=== PATIENT | female | born 1960 | race African-American/Black ===

== ENCOUNTER 2019-10-31 15:23 | Outpatient (CLI) | payer OTHER, SELFPAY ==
--- NOTE | ~2019-10-31 | MM_ITS ---
EXAMINATION: MM screening noel BI w ricky HISTORY: Screening mammogram TECHNIQUE: Craniocaudal and mediolateral oblique 3-D tomosynthesis images were obtained and synthetic 2-D images were generated. CAD analysis was submitted and interpreted. COMPARISON: 12/31/2015, 01/27/2014, 09/15/2011 bilateral digital screening mammogram examinations BREAST PARENCHYMAL COMPOSITION: There are scattered areas of fibroglandular density......... FINDINGS: There is no evidence of suspicious mass, calcification, or architectural distortion to sugg est malignancy in either breast. There has been no suspicious interval change. IMPRESSION: 1. No mammographic evidence of malignancy. 2. Recommend routine screening mammography in one year. BI-RADS Category 1: Negative Reviewed, dictated and finalized at location A.
== END 2019-10-31 15:24 | disposition home or self-care (01) ==
LOC: ANHIMG 15:28
PROVIDERS: PCP Family Medicine; Visit Provider Physician Assistant
DX: Z12.31 Encounter for screening mammogram for malignant neoplasm of breast (principal)
CPT/HCPCS: 77063; 77067

== ENCOUNTER 2020-02-28 00:38 | Outpatient (CLI) | payer OTHER, SELFPAY ==
[2020-02-28 18:04] LABS: SARS-CoV-2 RNA PCR Negative
== END 2020-02-28 00:39 | disposition home or self-care (01) ==
LOC: ANHCOVIDDT 00:38
PROVIDERS: PCP Family Medicine; Visit Provider Internal Medicine Gastroenterology
DX: Z01.812 Encounter for preprocedural laboratory examination (principal); Z20.828 Contact with and (suspected) exposure to other viral communicable diseases
CPT/HCPCS: 87635; C9803; U0003

== ENCOUNTER 2020-03-02 00:34 | Day surgery (SDC) | payer OTHER, SELFPAY ==
[2020-02-23 15:21] VITALS: BMI 31.0
[2020-03-02 09:57] VITALS: BP 139/81; PULSE 71; RESP 16; TEMP 36.1; O2SAT 100; BMI 29.1
[2020-03-02] MEDS: LACTATED RINGERS 1,000 ML 150 ML IV CONT (10:07)
--- NOTE | 2020-03-02 10:17 | WPDANESEPPF ---
Anes - Initial Pre Proc Eval Procedure: Operation Date: 03/02/20 11:15 Proposed Procedures p Screening Colonoscopy - Manuel Hanks MD Date/Time: 03/02/20 10:17 Surgeon: Manuel Hanks MD Pre Op Diagnosis: Neoplasm Screening Patient Data Age: 59 Gender: F Height: 5 ft 7 in Weight: 84.4 kg Last Vital Signs Temp 97.0 F L 03/02/20 09:57 Pulse 71 03/02/20 09:57 Resp 16 03/02/20 09:57 BP 139/81 03/02/20 09:57 Pulse Ox 100 03/02/20 09:57 Allergies Allergy/AdvReac Type Severity Reaction Status Date / Time codeine Allergy Severe Hives Verified 03/02/20 09:55 Penicillins Allergy Severe Hives Verified 03/02/20 09:55 Sulfa (Sulfonamide Allergy Severe Hives Verified 03/02/20 09:55 Antibiotics) [place] And Derivatives AdvReac Intermediate Migraine Verified 03/02/20 09:55 egg AdvReac Intermediate Migraine Verified 03/02/20 09:55 egg yolk AdvReac Intermediate Migraine Verified 03/02/20 09:55 fish derived AdvReac Intermediate Migraine Verified 03/02/20 09:55 milk AdvReac Intermediate Migraine Verified 03/02/20 09:55 nut - unspecified AdvReac Intermediate Migraine Verified 03/02/20 09:55 Home Medications Medication Instructions Recorded Confirmed Type aspirin 81 mg tablet,delayed 81 mg PO DAILY 10/13/19 02/23/20 History release azelastine 137 mcg (0.1 %) nasal 1 spray NASAL Q12H #30 ml 10/13/19 02/23/20 Rx spray aerosol metoprolol succinate 50 mg 50 mg PO DAILY #90 tablet 10/13/19 02/23/20 Rx tablet,extended release 24 hr peg 3350-electrolytes 236 240 ml PO Q10M #4000 ml 01/26/20 Rx gram-22.74 gram-6.74 gram-5.86 gram solution cetirizine 10 mg PO DAILY 02/23/20 02/23/20 History ergocalciferol (vitamin D2) 1,250 mcg PO WEEKLY 02/23/20 02/23/20 History [Vitamin D2] fluoxetine 90 mg PO DAILY 02/23/20 02/23/20 History fluticasone propionate 1 spray INTRANASAL DAILY 02/23/20 02/23/20 History hydroxyzine HCl 25 mg PO DAILY 02/23/20 02/23/20 History Patient hx anesthesia problems: none Family hx anesthesia problems: none PMFSH Past Medical History Medical History (Updated 01/23/20 @ 13:38 by Fide Contreras MD) Allergic asthma Generalized anxiety disorder Hypertension Renal carcinoma Vitamin D deficiency Surgical History Surgical History H/O left nephrectomy Hx of arthroscopic knee surgery Hx of cholecystectomy Family History Family History Father Family history of blood dyscrasia, Onset Age: 68 Asthma Patient's father is Family history of heart disease in male family member before age 55 Mother Hypertension Family history of elevated blood lipids Family history of diabetes mellitus in first degree relative Sibling Asthma Grandparent Family history of malignant neoplasm of breast Other Diabetes mellitus Family history of sickle cell trait Social History Social History (Updated 01/23/20 @ 13:07 by Candelaria Holbrook) Social History: Divorce Smoking status: Never smoker Second hand tobacco smoke exposure: No Alcohol intake: former Substance use: never Substance use type: does not use Additional occupation/education comments: Disability Gender identity (if verbalized by the patient): Female Spiritual care concerns: No Anes - Eval Final PreProcedure Day of Procedure 03/02/20 10:17 Patient weight: obese Heart: regular rate and rhythm Lungs: clear to auscultation Airway: Mallampati scale class II Neurological: alert and oriented Last oral intake: >/= 8 hours ASA classification: III Emergent: no Anesthetic plan: proceed Anesthesia type and monitoring: general GIVS and standard monitoring Informed Consent: The patient's anesthetic plan and its attendant risks and benefits were discussed with the patient/family/POA. Questions were solicited and answers provided to the satisfac
--- NOTE | 2020-03-02 10:21 | PM.HPGS ---
History of Present Illness History of Present Illness Consent: Risks, benefits, and alternatives have been discussed and questions answered. Patient agrees to proceed with procedure. Chief complaint: Neoplasm Screening Narrative: Jailyn Condon is a 59 year old female here for screening colonoscopy, last one 10 years ago Review of Systems Constitutional: Constitutional: Denies headache(s) and Denies weakness Eyes: Eyes: Denies blurry vision ENT: Reports Normal hearing present, Denies headache(s) and Denies neck pain Cardiovascular: Cardiovascular: Denies chest pain and Denies dyspnea Respiratory: Respiratory: Denies dyspnea Gastrointestinal: Gastrointestinal: Reports no additional gastrointestinal complaints Genitourinary: Genitourinary: Denies dysuria Musculoskeletal: Musculoskeletal: Denies neck pain Integumentary/Breasts: Skin/Breast: Denies dry skin Neurologic: Reports Normal hearing present, Denies headache(s) and Denies weakness Psychiatric: Psychiatric: Denies anxiety Endocrine: Endocrine: Denies change in body appearance Hematologic/Lymphatic: Hematologic/Lymphatic: Denies easy bleeding Allergic/Immunologic: Allergic/Immunologic: Denies urticaria PMFSH Past Medical History Medical History (Updated 01/23/20 @ 13:38 by Fide Contreras MD) Allergic asthma Generalized anxiety disorder Hypertension Renal carcinoma Vitamin D deficiency Surgical History Surgical History H/O left nephrectomy Hx of arthroscopic knee surgery Hx of cholecystectomy Family History Family History Father Family history of blood dyscrasia, Onset Age: 68 Asthma Patient's father is Family history of heart disease in male family member before age 55 Mother Hypertension Family history of elevated blood lipids Family history of diabetes mellitus in first degree relative Sibling Asthma Grandparent Family history of malignant neoplasm of breast Other Diabetes mellitus Family history of sickle cell trait Social History Social History (Updated 01/23/20 @ 13:07 by Candelaria Holbrook) Social History: Divorce Smoking status: Never smoker Second hand tobacco smoke exposure: No Alcohol intake: former Substance use: never Substance use type: does not use Additional occupation/education comments: Disability Gender identity (if verbalized by the patient): Female Spiritual care concerns: No Meds Home Medications and Allergies Home Medications Medication Instructions Recorded Confirmed Type aspirin 81 mg tablet,delayed 81 mg PO DAILY 10/13/19 02/23/20 History release azelastine 137 mcg (0.1 %) nasal 1 spray NASAL Q12H #30 ml 10/13/19 02/23/20 Rx spray aerosol metoprolol succinate 50 mg 50 mg PO DAILY #90 tablet 10/13/19 02/23/20 Rx tablet,extended release 24 hr peg 3350-electrolytes 236 240 ml PO Q10M #4000 ml 01/26/20 Rx gram-22.74 gram-6.74 gram-5.86 gram solution cetirizine 10 mg PO DAILY 02/23/20 02/23/20 History ergocalciferol (vitamin D2) 1,250 mcg PO WEEKLY 02/23/20 02/23/20 History [Vitamin D2] fluoxetine 90 mg PO DAILY 02/23/20 02/23/20 History fluticasone propionate 1 spray INTRANASAL DAILY 02/23/20 02/23/20 History hydroxyzine HCl 25 mg PO DAILY 02/23/20 02/23/20 History Allergies Allergy/AdvReac Type Severity Reaction Status Date / Time codeine Allergy Severe Hives Verified 03/02/20 09:55 Penicillins Allergy Severe Hives Verified 03/02/20 09:55 Sulfa (Sulfonamide Allergy Severe Hives Verified 03/02/20 09:55 Antibiotics) [place] And Derivatives AdvReac Intermediate Migraine Verified 03/02/20 09:55 egg AdvReac Intermediate Migraine Verified 03/02/20 09:55 egg yolk AdvReac Intermediate Migraine Verified 03/02/20 09:55 fish derived AdvReac Intermediate Migraine Verified 03/02/20 09:55 milk AdvReac Intermediate Migraine Verifie
[2020-03-02 10:41] VITALS: BP 81/57; PULSE 69; RESP 17; O2SAT 99
[2020-03-02 10:51] VITALS: BP 98/60; PULSE 62; RESP 19; O2SAT 100
[2020-03-02 11:01] VITALS: BP 114/68; PULSE 60; RESP 16; O2SAT 100
== END 2020-03-02 11:14 | disposition home or self-care (01) ==
PROVIDERS: PCP Family Medicine; Visit Provider Internal Medicine Gastroenterology
PROC: 0DJD8ZZ Inspection of Lower Intestinal Tract, Via Natural or Artificial Opening Endoscopic (ICD-10-PCS; CPT 45378; principal; 2020-03-02 11:15)
DX: Z12.11 Encounter for screening for malignant neoplasm of colon (principal); K57.30 Diverticulosis of large intestine without perforation or abscess without bleeding; K64.8 Other hemorrhoids; I10 Essential (primary) hypertension; E55.9 Vitamin D deficiency, unspecified; F41.1 Generalized anxiety disorder; J45.909 Unspecified asthma, uncomplicated; E66.9 Obesity, unspecified; Z68.29 Body mass index [BMI] 29.0-29.9, adult
CPT/HCPCS: 45378; J2704; J7120

== ENCOUNTER 2021-01-22 15:10 | Emergency (ER) | payer OTHER, SELFPAY ==
[2021-01-22] VITALS (7 sets, daily range): BP systolic 112–150; BP diastolic 77–91; PULSE 75–88; RESP 18–22; TEMP 36.6; O2SAT 96–99
--- NOTE | ~2021-01-22 | XR_ITS ---
XR chest 2V DATE: 01/22/2021 15:47 INDICATION: Dizziness. Hypertension. Status post left nephrectomy for renal cell cancer TECHNIQUE: AP and lateral views COMPARISON: 04/13/2019 CT pulmonary scan FINDINGS: Cannot exclude approximately 7 mm nodular density of right upper lobe. No pulmonary infiltrate or consolidation, pleural effusion or pulmonary vascular congestion or pneumo thorax is detected. Normal heart size. No hilar or mediastinal enlargement. IMPRESSION: Cannot exclude 7 mm right upper lobe pulmonary nodule; consider CT thorax. Reviewed, dictated and finalized at location A.
--- NOTE | ~2021-01-22 | CT_ITS ---
EXAMINATION: CT brain wo con DATE: 01/22/2021 16:16 INDICATION: Headache. Hypertension. History of renal cell cancer. TECHNIQUE: Computed tomography (CT) of the head was performed without intravenous contrast. The mA wa s adjusted according to patient size. Iterative reconstruction technique was employed. Exam dose: 60 5.33 mGy-cm total exam DLP. COMPARISON: None FINDINGS: No intracranial mass lesion or hemorrhage or cerebrovascular accident. No midline shift or mass effect. Normal ventricular size. No subdural or epidural hematoma. No fracture or bone destruction of the cranial vault. Included mastoid air cells and paranasal sinuse s are unremarkable. IMPRESSION: Negative Reviewed, dictated and finalized at [facility]. Reviewed, dictated and finalized at location A. IMPRESSION: Negative
--- NOTE | 2021-01-22 15:22 | ECG_ITS ---
Measurements Intervals [place] Rate: 76 P: 42 MS: 176 QRS: 13 QRSD: 82 T: 84 QT: 368 QTc: 416 Interpretive Statements SINUS RHYTHM CANNOT RULE OUT SEPTAL INFARCT, AGE INDETERMINATE BORDERLINE T WAVE ABNORMALITY- DIFFUSE LEADS BASELINE ARTIFACT- II, III, AVR, AVL, AVF, V1-V6 ABNORMAL ECG Electronically Signed On 01-22-2021 20:12:04 CDT by Ryan Farfan D.O.
[2021-01-22 15:39] LABS: Basophils Percent Auto 0.6 % (0.2-1.2); Eosinophils Absolute Auto 0.5 K/mm3 (0-0.3); Eosinophils Percent Auto 6.4 % (0-4.4); Hematocrit 42.5 % (37.0-47.0); Hemoglobin 13.8 g/dL (12.0-15.0); Immature Granulocyte Absolute 0.08 K/mm3 (0.00-0.031); Immature Granulocyte Percent A 1.1 % (0-0.5); Lymphocytes Absolute Auto 2.09 K/mm3 (0.9-3.2); Lymphocytes Percent Auto 29.8 % (18.3-44.2); Mean Corpuscular HGB Conc 32.5 g/dl (32-36); Mean Corpuscular Hemoglobin 25.8 pg (26-34); Mean Corpuscular Volume 79.4 fl (80-100); Mean Platelet Volume 10.6 fl (7.4-10.4); Monocytes Absolute Auto 0.5 K/mm3 (0.1-0.6); Monocytes Percent Auto 7.7 % (2.6-8.5); Neutrophils Absolute Auto 3.8 K/mm3 (1.3-6.7); Neutrophils Percent Auto 54.4 % (45.5-73.1); Platelet Count Result 172 k/mm3 (150-375); Red Blood Count 5.35 M/mm3 (4.2-5.4); Red Cell Distribution Width 18.1 % (11.5-14.5)
--- NOTE | 2021-01-22 15:41 | ED.RECABL ---
HPI - Recheck/Abnormal Lab/Rx General Chief Complaint: Recheck/Abnormal Lab/Rx Stated Complaint: HIGH BLOOD PRESSURE, RENAL CELL CARCINOMA Time Seen by Provider: 01/22/21 15:22 Source: patient Mode of arrival: ambulatory Limitations: no limitations History of Present Illness HPI narrative: This is a 60 year old female that presents to the ER for hypertension. Reports she is currently on a clinical trial for renal cell carcinoma. She had her first infusion on Sunday. She was told to hold her blood pressure medications. Reports she noted over the next couple of days that her blood pressures were elevated to 140s/100s. She was then told to restart her medications. Her blood pressures have improved since then. She was instructed by her nurse coordinator to come to the ER for her blood pressure. Reports an episode of brief sharp, substernal chest pain earlier today. Reports she currently has a headache. Reports she has had a dry cough for the last couple of weeks. She is having trouble with her asthma and has been wheezing. She was seen by her primary yesterday and started on a steroid and Levaquin, but was told by her nurse coordinator for the trial that she shouldn't take these. Reports she had a fever couple of days ago. Denies shortness of breath. Related Data Home Medications Medication Instructions Recorded Confirmed aspirin 81 mg tablet,delayed 81 mg PO DAILY 10/13/19 01/21/21 release cetirizine 10 mg PO DAILY 02/23/20 01/21/21 fluoxetine 60 mg tablet 30 mg PO DAILY tablet 12/09/20 01/21/21 fluticasone furoate 100 1 inh INHALATION DAILY 12/09/20 01/21/21 mcg-vilanterol 25 mcg/dose inhalation powder sennosides 8.6 mg-docusate sodium 1 tab-cap PO QHS 12/09/20 01/21/21 50 mg tablet axitinib 5 mg tablet 5 mg PO BID 01/21/21 01/21/21 fluticasone fur. 100 mcg-umeclid 1 inh INHALATION DAILY 01/21/21 01/21/21 62.5 mcg-vilant 25 mcg inhalat.powder glycopyrrolate 9 mcg-formoterol 2 puff INHALATION BID 01/21/21 01/21/21 4.8 mcg HFA aerosol inhaler docusate sodium 50 mg PO DAILY 01/22/21 fluticasone furoate-vilanterol INHALATION 01/22/21 [Breo Ellipta] Allergies Allergy/AdvReac Type Severity Reaction Status Date / Time codeine Allergy Severe Hives Verified 01/21/21 11:00 Penicillins Allergy Severe Hives Verified 01/21/21 11:00 Sulfa (Sulfonamide Allergy Severe Hives Verified 01/21/21 11:00 Antibiotics) [place] And Derivatives AdvReac Intermediate Migraine Verified 01/21/21 11:00 egg AdvReac Intermediate Migraine Verified 01/21/21 11:00 egg yolk AdvReac Intermediate Migraine Verified 01/21/21 11:00 fish derived AdvReac Intermediate Migraine Verified 01/21/21 11:00 milk AdvReac Intermediate Migraine Verified 01/21/21 11:00 nut - unspecified AdvReac Intermediate Migraine Verified 01/21/21 11:00 Review of Systems Review of Systems: CONSTITUTIONAL: Reports fever CARDIOVASCULAR: Reports chest pain RESPIRATORY: Reports cough. Denies dyspnea. GASTROINTESTINAL: Reports nausea. Denies abdominal pain, vomiting NEUROLOGIC: Reports headache. Denies numbness, or weakness. All systems reviewed & are unremarkable except as noted in HPI and below PMFSH Past Medical History Medical History Allergic asthma Constipation Hypertension Renal carcinoma Vitamin D deficiency Surgical History Surgical History H/O left nephrectomy Hx of arthroscopic knee surgery Hx of cholecystectomy Family History Family History Father Family history of blood dyscrasia, Onset Age: 68 Asthma Patient's father is Family history of heart disease in male family member before age 55 Mother Hypertension Family history of elevated blood lipids Family history of diabetes mellitus in first degree relative Sibling Asthma Grandparent Family history of malignant n
[2021-01-22 15:48] LABS: Potassium 3.8 mmol/L (3.4-5.0)
[2021-01-22 15:59] LABS: Anion Gap 7 mmol/L (8-16); Blood Urea Nitrogen 10 mg/dL (7-17); Calcium 9.1 mg/dL (8.4-10.2); Carbon Dioxide 26 mmol/L (22-30); Chloride 103 mmol/L (98-107); Estimated CRCL calculation 47 ml/min; Estimated Glomerular Filt Rate > 60; Glucose 131 mg/dL (65-110); Sodium 136 mmol/L (137-145)
[2021-01-22 16:29] LABS: Prothrombin Time 13.1 Seconds (11.1-14.7)
[2021-01-22] MEDS: ONDANSETRON INJ 4 MG/2 ML VIAL IV PUSH (16:37)
[2021-01-22 16:43] LABS: Troponin I < 0.012 ng/mL (0.000-0.034)
[2021-01-22] MEDS: ALBUTEROL SULFATE (*SP) AEROSOL 1 PUFF 4 PUFF INHALATION (17:05)
== END 2021-01-22 18:53 | disposition home or self-care (01) ==
PROVIDERS: Physician Assistant; Emergency Provider Emergency Medicine; PCP Family Medicine
DX: I10 Essential (primary) hypertension (principal); R51.9 Headache, unspecified; J45.909 Unspecified asthma, uncomplicated; C79.9 Secondary malignant neoplasm of unspecified site; C64.9 Malignant neoplasm of unspecified kidney, except renal pelvis; Z90.5 Acquired absence of kidney; R91.1 Solitary pulmonary nodule
CPT/HCPCS: 36415; 70450; 71046; 80048; 84484; 85025; 85610; 85730; 93005; 96374; 96375; 99284; A9270; J0131; J2405

== ENCOUNTER 2021-01-28 13:22 | Emergency (ER) | payer OTHER, SELFPAY ==
--- NOTE | ~2021-01-28 | XR_ITS ---
EXAMINATION: XR chest 2V EXAM DATE: 01/28/2021 14:52 INDICATION: Anterior chest pain, cough and sore throat. TECHNIQUE: Frontal and lateral projections of the chest obtained and reviewed. Comparison is made to prior examination from 01/22/2021. FINDINGS: Suspected identification of 4 subcentimeter pulmonary nodules, indicated on the examination . Possible metastatic disease. CT chest recommended for further evaluation. No confluent consolidatio n, pneumothorax or pleural effusion suspected. Cardiomediastinal silhouette is normal. Upper abdomina l surgical clips. There are no osteoblastic or osteolytic lesions identified. IMPRESSION: Suspect for pulmonary nodules, metastatic versus postinfectious. Recommend chest CT, with out contrast would be sufficient. Reviewed, dictated and finalized at location B. IMPRESSION: Suspect for pulmonary nodules, metastatic versus postinfectious. Re commend chest CT, without contrast would be sufficient.
--- NOTE | ~2021-01-28 | CT_ITS ---
EXAMINATION: CTA chest PE protocol EXAM DATE: 01/28/2021 15:36 INDICATION: Shortness of breath hx of malignancy. TECHNIQUE: Spiral CTA of the chest (pulmonary arteries) was performed with 100 cc Omnipaque 350 intr avenous contrast injection. Images were acquired during the pulmonary arterial phase. Coronal maxi mum intensity projection 3D-reconstructions were created by the technologist on dedicated workstation . Axial, coronal and sagittal reformatted images were reviewed. The dose-length product (DLP) for t his examination was 465.93 mGy-cm. The exposure was tailored according to patient size (auto mA exp osure control), and iterative reconstruction (ASIR) was used as additional dose reduction technique. Comparison is made to prior examination from 04/13/2019. Correlation was made with chest x-ray earlier same date. FINDINGS: Pulmonary arteries are well opacified and without intraluminal filling defects. No thora cic aortic dissection. There are approximately 10 pulmonary nodules identified largest is in the lef t upper lobe measuring 1.2 cm. Appearance is most consistent with pulmonary metastases. These are new compared to pulmonary scan from 2019. There are no pleural or pericardial effusions. Tracheobronch ial tree is patent. There is no mediastinal, hilar or axillary lymphadenopathy. There is no pneum othorax. Mild cardiomegaly. No evidence of coronary arterial calcification. Status post left neph rectomy. Small sliding gastroesophageal hiatal hernia. There is mild thoracic spondylosis without os teoblastic or osteolytic lesions identified. IMPRESSION: 1. Scattered pulmonary nodules most likely metastatic. 2. No pulmonary emboli or acute findings. 3. Mild cardiomegaly. Reviewed, dictated and finalized at location B.
[2021-01-28 14:12] VITALS: BP 151/90; PULSE 78; RESP 20; TEMP 36.9; O2SAT 99
--- NOTE | 2021-01-28 14:18 | ECG_ITS ---
Measurements Intervals [place] Rate: 76 P: 54 AR: 195 QRS: 22 QRSD: 86 T: 70 QT: 384 QTc: 433 Interpretive Statements SINUS RHYTHM BORDERLINE T WAVE ABNORMALITY- ANT/HIGH LAT LEADS BORDERLINE ECG Electronically Signed On 01-28-2021 14:31:49 CDT by Ryan Farfan D.O.
[2021-01-28 14:58] VITALS: BP 137/85; PULSE 76; RESP 15; O2SAT 99
[2021-01-28 15:06] LABS: Basophils Absolute Auto 0.2 K/mm3 (0.0-0.1); Basophils Percent Auto 0.8 % (0.2-1.2); Eosinophils Absolute Auto 5.5 K/mm3 (0-0.3); Eosinophils Percent Auto 30.5 % (0-4.4); Hematocrit 41.2 % (37.0-47.0); Hemoglobin 13.4 g/dL (12.0-15.0); Immature Granulocyte Absolute 0.34 K/mm3 (0.00-0.031); Immature Granulocyte Percent A 1.9 % (0-0.5); Lymphocytes Absolute Auto 6.36 K/mm3 (0.9-3.2); Lymphocytes Percent Auto 35.5 % (18.3-44.2); Mean Corpuscular HGB Conc 32.5 g/dl (32-36); Mean Corpuscular Hemoglobin 25.6 pg (26-34); Mean Corpuscular Volume 78.8 fl (80-100); Monocytes Percent Auto 5.4 % (2.6-8.5); Neutrophils Absolute Auto 4.6 K/mm3 (1.3-6.7); Neutrophils Percent Auto 25.9 % (45.5-73.1); Nucleated Red Blood Cells Absolute Auto 0.1 K/mm3 (0.0-0.012); Nucleated Red Blood Cells Perc 0.3 % (0.0-0.2); Platelet Count Result 262 k/mm3 (150-375); Red Blood Count 5.23 M/mm3 (4.2-5.4); Red Cell Distribution Width 18.4 % (11.5-14.5); White Blood Count 17.9 K/mm3 (4.5-10.0)
[2021-01-28 15:18] LABS: Anion Gap 11 mmol/L (8-16); Blood Urea Nitrogen 15 mg/dL (7-17); Calcium 8.9 mg/dL (8.4-10.2); Carbon Dioxide 25 mmol/L (22-30); Chloride 103 mmol/L (98-107); Estimated CRCL calculation 58 ml/min; Estimated Glomerular Filt Rate > 60; Glucose 90 mg/dL (65-110); INR 0.9; Potassium 4.8 mmol/L (3.4-5.0); Prothrombin Time 11.9 Seconds (11.1-14.7); Sodium 139 mmol/L (137-145)
[2021-01-28 15:19] LABS: Partial Thromboplastin Time 27.4 SECONDS (22.3-36.8)
[2021-01-28 15:22] VITALS: PULSE 75; RESP 16
[2021-01-28] MEDS: IPRATROPIUM BR 0.02% INH SOLN 0.5 MG/2.5 ML VIAL INHALATION (15:22)
[2021-01-28] MEDS: ALBUTEROL SULFATE NEB 2.5 MG/0.5 ML INH 5 MG INHALATION (15:22)
[2021-01-28 15:30] LABS: Troponin I < 0.012 ng/mL (0.000-0.034)
--- NOTE | 2021-01-28 16:20 | ED.RECABL ---
HPI - Recheck/Abnormal Lab/Rx General Chief Complaint: Recheck/Abnormal Lab/Rx Stated Complaint: asthma/htn Time Seen by Provider: 01/28/21 14:55 History of Present Illness HPI narrative: Patient presents with shortness of breath. Patient has been seen multiple times for shortness of breath reports a history of asthma feels she is having a asthma exacerbation which is usually improved with steroids. She has been using her albuterol with limited benefit. She has been prescribed steroids but is not taking them as she is in enrolled in a clinical trial for cancer treatment. She denies fever reports mild cough reports shortness of breath denies focal chest pain or abdominal pain. Denies any lightheadedness or dizziness Related Data Home Medications Medication Instructions Recorded Confirmed aspirin 81 mg tablet,delayed 81 mg PO DAILY 10/13/19 01/21/21 release cetirizine 10 mg PO DAILY 02/23/20 01/21/21 fluoxetine 60 mg tablet 30 mg PO DAILY tablet 12/09/20 01/21/21 fluticasone furoate 100 1 inh INHALATION DAILY 12/09/20 01/21/21 mcg-vilanterol 25 mcg/dose inhalation powder sennosides 8.6 mg-docusate sodium 1 tab-cap PO QHS 12/09/20 01/21/21 50 mg tablet axitinib 5 mg tablet 5 mg PO BID 01/21/21 01/21/21 fluticasone fur. 100 mcg-umeclid 1 inh INHALATION DAILY 01/21/21 01/21/21 62.5 mcg-vilant 25 mcg inhalat.powder glycopyrrolate 9 mcg-formoterol 2 puff INHALATION BID 01/21/21 01/21/21 4.8 mcg HFA aerosol inhaler docusate sodium 50 mg PO DAILY 01/22/21 fluticasone furoate-vilanterol INHALATION 01/22/21 [Breo Ellipta] Allergies Allergy/AdvReac Type Severity Reaction Status Date / Time codeine Allergy Severe Hives Verified 01/21/21 11:00 Penicillins Allergy Severe Hives Verified 01/21/21 11:00 Sulfa (Sulfonamide Allergy Severe Hives Verified 01/21/21 11:00 Antibiotics) [place] And Derivatives AdvReac Intermediate Migraine Verified 01/21/21 11:00 egg AdvReac Intermediate Migraine Verified 01/21/21 11:00 egg yolk AdvReac Intermediate Migraine Verified 01/21/21 11:00 fish derived AdvReac Intermediate Migraine Verified 01/21/21 11:00 milk AdvReac Intermediate Migraine Verified 01/21/21 11:00 nut - unspecified AdvReac Intermediate Migraine Verified 01/21/21 11:00 Review of Systems Review of Systems: CONSTITUTIONAL: Denies fever, chills, or sweats. EYES: Denies visual changes, redness, or discharge. ENT: Denies rhinorrhea, congestion, sore throat, or otalgia. CARDIOVASCULAR: Denies chest pain, palpitations, or edema. RESPIRATORY: Reports mild cough and shortness of breath GASTROINTESTINAL: Denies abdominal pain, nausea, vomiting, or diarrhea. GENITOURINARY: Denies dysuria or hematuria. SKIN: Denies rash or itching. MUSCULOSKELETAL: Denies back pain, joint pain, or myalgia. NEUROLOGIC: Denies headache, numbness, dizziness, or weakness. PSYCHIATRIC: Denies anxiety or depression. All systems reviewed & are unremarkable except as noted in HPI and below PMFSH Past Medical History Medical History Allergic asthma Constipation Hypertension Renal carcinoma Vitamin D deficiency Surgical History Surgical History H/O left nephrectomy Hx of arthroscopic knee surgery Hx of cholecystectomy Family History Family History Father Family history of blood dyscrasia, Onset Age: 68 Asthma Patient's father is Family history of heart disease in male family member before age 55 Mother Hypertension Family history of elevated blood lipids Family history of diabetes mellitus in first degree relative Sibling Asthma Grandparent Family history of malignant neoplasm of breast Other Diabetes mellitus Family history of sickle cell trait Social History Social History Social History: Divorce
[2021-01-28 17:09] VITALS: BP 135/87; PULSE 74; RESP 18; O2SAT 98
== END 2021-01-28 17:12 | disposition home or self-care (01) ==
PROVIDERS: Emergency Medicine; Emergency Provider Emergency Medicine; PCP Family Medicine
DX: R06.00 Dyspnea, unspecified (principal); D72.829 Elevated white blood cell count, unspecified; Z79.82 Long term (current) use of aspirin; I10 Essential (primary) hypertension; E55.9 Vitamin D deficiency, unspecified; Z90.5 Acquired absence of kidney; Z85.528 Personal history of other malignant neoplasm of kidney; I51.7 Cardiomegaly; R94.31 Abnormal electrocardiogram [ECG] [EKG]; R91.8 Other nonspecific abnormal finding of lung field
CPT/HCPCS: 36415; 71046; 71275; 80048; 84484; 85025; 85610; 85730; 93005; 94640; 99284; Q9967

== ENCOUNTER 2021-05-15 11:25 | Observation (INO) | payer OTHER, SELFPAY ==
[2021-05-15] VITALS (45 sets, daily range): BP systolic 109–143; BP diastolic 71–92; PULSE 73–92; RESP 13–22; TEMP 35.8–36.3; O2SAT 94–100; BMI 30.5
--- NOTE | ~2021-05-15 | US_ITS ---
EXAMINATION: US venous doppler [facility] DATE: 05/16/2021 09:52 INDICATION: Pulmonary embolism TECHNIQUE: Grayscale ultrasound images without and with compression and Doppler ultrasound images of the bilateral lower extremity veins were obtained. COMPARISON: None. FINDINGS: The visualized portions of right common femoral vein, profunda (deep) femoral vein, femoral vein, pop liteal vein, posterior tibial veins, peroneal veins, gastrocnemius vein and greater saphenous vein ou tflow are patent. The visualized portions of left common femoral vein, profunda femoral vein, femoral vein, popliteal v ein, posterior tibial veins, peroneal veins, gastrocnemius vein and greater saphenous vein outflow ar e patent. IMPRESSION: 1. No deep venous thrombosis in either lower limb. Reviewed, dictated and finalized at location A. [employer]
--- NOTE | ~2021-05-15 | CT_ITS ---
EXAMINATION: CTA chest PE abdomen pel DATE: 05/15/2021 12:59 CRANE MAN INDICATION: Nausea and vomiting. Fatigue. TECHNIQUE: Computed tomographic angiography (CTA) of the chest, abdomen, and pelvis was performed wit h 100 mL Omnipaque-350 intravenous contrast. The dose-length product was 790.14 mGy-cm. Maximum inten sity projection 3D-reconstructions of the aorta and other arteries were constructed by the frenting st on a separate workstation. Automated exposure control and iterative reconstruction technique were employed. COMPARISON: CT dated 01/28/2021. FINDINGS: CHEST CTA: Heart size is normal. No significant pleural or pericardial effusion. Small filling defect in left up per lobe segmental pulmonary artery consistent with pulmonary embolism. There are filling defects in right middle and lower lobe segmental pulmonary arteries. No evidence for aortic aneurysm or dissecti on. No significant pleural or pericardial effusion. Stable number of pulmonary nodules bilaterally, a lthough some of the nodules have diminished in size compared with prior examination. For instance rig ht upper lobe nodule, image 40 measures 4.6 mm compared with 8.9 mm on prior examination. Right upper lobe nodule on image 37 measures 7 mm compared with 10 mm. No focal airspace disease. No endobronchi al lesions. No pneumothorax. No focal lytic or blastic lesions. ABDOMEN AND PELVIS CTA: Status post left nephrectomy. Fatty infiltration of the liver. Status post cholecystectomy. The splee n, pancreas, right kidney and right adrenal gland are unremarkable. Nonobstructive bowel gas pattern. There is an enlarged fibroid uterus. No free air or free fluid. No focal lytic or blastic lesions. IMPRESSION: 1. Small bilateral filling defects in the left upper lobe, right middle lobe and right lower lobe seg mental pulmonary arteries, consistent with pulmonary embolism, small thrombus burden. 2: Decreased size of several bilateral pulmonary nodules, consistent with interval partial response t o therapy for metastatic disease. Reviewed, dictated and finalized at location A. E MAN IMPRESSION: 1. Small bilateral filling defects in the left upper lobe, right middle lobe an d right lower lobe segmental pulmonary arteries, consistent with pulmonary embo lism, small thrombus burden. 2: Decreased size of several bilateral pulmonary nodules, consistent with inter oscar partial response to therapy for metastatic disease.
--- NOTE | 2021-05-15 11:42 | ECG_ITS ---
Measurements Intervals [place] Rate: 80 P: 62 RI: 172 QRS: -8 QRSD: 103 T: 201 QT: 414 QTc: 479 Interpretive Statements SINUS RHYTHM T WAVE ABNORMALITY IN ANTEROLATERAL LEADS- CONSIDER ISCHEMIA ABNORMAL ECG Electronically Signed On 05-15-2021 16:04:35 MANAGER FLOAT by Ryan Farfan D.O.
[2021-05-15 12:04] LABS: Basophils Percent Auto 0.1 % (0.2-1.2); Hematocrit 43.5 % (37.0-47.0); Immature Granulocyte Absolute 0.02 K/mm3 (0.00-0.031); Immature Granulocyte Percent A 0.3 % (0-0.5); Lymphocytes Percent Auto 52.8 % (18.3-44.2); Mean Corpuscular HGB Conc 32.2 g/dl (32-36); Mean Corpuscular Hemoglobin 26.5 pg (26-34); Mean Corpuscular Volume 82.2 fl (80-100); Mean Platelet Volume 11.2 fl (7.4-10.4); Monocytes Absolute Auto 0.6 K/mm3 (0.1-0.6); Monocytes Percent Auto 8.5 % (2.6-8.5); Neutrophils Absolute Auto 2.8 K/mm3 (1.3-6.7); Neutrophils Percent Auto 38.3 % (45.5-73.1); Platelet Count Result 209 k/mm3 (150-375); Red Blood Count 5.29 M/mm3 (4.2-5.4); Red Cell Distribution Width 17.3 % (11.5-14.5); White Blood Count 7.4 K/mm3 (4.5-10.0)
[2021-05-15 12:13] LABS: Lactic Acid Reflex 2.3 mmol/L (0.7-2.1)
[2021-05-15 12:14] LABS: Alanine Aminotransferase 17 U/L (4-35); Albumin Level 3.7 g/dL (3.5-5.1); Alkaline Phosphatase 71 U/L (38-126); Anion Gap 13 mmol/L (8-16); Aspartate Amino Transferase 24 U/L (14-36); Bilirubin,Total 1.2 mg/dL (0.2-1.3); Blood Urea Nitrogen 11 mg/dL (7-17); Calcium 8.8 mg/dL (8.4-10.2); Carbon Dioxide 21 mmol/L (22-30); Chloride 102 mmol/L (98-107); Estimated CRCL calculation 43 ml/min; Estimated Glomerular Filt Rate 55; Glucose 114 mg/dL (65-110); Lipase 24 U/L (23-300); Sodium 136 mmol/L (137-145)
[2021-05-15] MEDS: ONDANSETRON INJ 4 MG/2 ML VIAL (12:15)
[2021-05-15] MEDS: SODIUM CHLORIDE 0.9% IV 1,000 ML 500 ML (12:15)
--- NOTE | 2021-05-15 12:16 | PC.NURSE ---
vorb from [facility] for NS 1L 500/HR AND ZOFRAN 4 MG IVP X1
--- NOTE | 2021-05-15 12:23 | ED.GENADULT ---
HPI - General Adult General Chief complaint: Nausea/Vomiting/Diarrhea <DON [place] BC - Last Filed: 05/15/21 15:32> Stated complaint: N/V/D <DON [place] BC - Last Filed: 05/15/21 15:32> Time Seen by Provider: 05/15/21 11:36 <DON [place] BC - Last Filed: 05/15/21 15:32> Source: patient <DON [place] BC - Last Filed: 05/15/21 15:32> Mode of arrival: ambulatory <DON [place] BC - Last Filed: 05/15/21 15:32> Limitations: no limitations <DON [place] BC - Last Filed: 05/15/21 15:32> History of Present Illness HPI narrative: Patient presents for evaluation of nausea, vomiting, diarrhea since yesterday. Yesterday she was also experiencing abdominal pain which has since subsided. She has experienced fever and chills. She has had a intermittent cough with shortness of breath as of late, although she cannot specify when those symptoms started. She also reports some vague urinary symptoms. She has a history of renal cell carcinoma with mets to the lungs, status post left-sided nephrectomy. She is currently on immunotherapy at [facility] with last infusion about 05/10/21 and next 05/30/21. Oncologist is Dr. Prince. No recent sick contacts to her knowledge. No history of Covid. She has received her Covid vaccination and her flu shot. She contacted her doctor who advised she come to the hospital for further evaluation. Her father had a history of VTE. <DON [place] BC - Last Filed: 05/15/21 15:32> Related Data Home medications: Home Medications Medication Instructions Recorded Confirmed aspirin 81 mg tablet,delayed 81 mg PO DAILY 10/13/19 01/21/21 release cetirizine 10 mg PO DAILY 02/23/20 01/21/21 fluoxetine 60 mg tablet 30 mg PO DAILY tablet 12/09/20 01/21/21 fluticasone furoate 100 1 inh INHALATION DAILY 12/09/20 01/21/21 mcg-vilanterol 25 mcg/dose inhalation powder sennosides 8.6 mg-docusate sodium 1 tab-cap PO QHS 12/09/20 01/21/21 50 mg tablet axitinib 5 mg tablet 5 mg PO BID 01/21/21 01/21/21 glycopyrrolate 9 mcg-formoterol 2 puff INHALATION BID 01/21/21 01/21/21 4.8 mcg HFA aerosol inhaler docusate sodium 50 mg PO DAILY 01/22/21 fluticasone furoate-vilanterol INHALATION 01/22/21 [Breo Ellipta] <DON [place] BC - Last Filed: 05/15/21 15:32> Allergies/adverse reactions: Allergies Allergy/AdvReac Type Severity Reaction Status Date / Time codeine Allergy Severe Hives Verified 05/15/21 11:30 Penicillins Allergy Severe Hives Verified 05/15/21 11:30 Sulfa (Sulfonamide Allergy Severe Hives Verified 05/15/21 11:30 Antibiotics) [place] And Derivatives AdvReac Intermediate Migraine Verified 05/15/21 11:30 egg AdvReac Intermediate Migraine Verified 05/15/21 11:30 egg yolk AdvReac Intermediate Migraine Verified 05/15/21 11:30 fish derived AdvReac Intermediate Migraine Verified 05/15/21 11:30 milk AdvReac Intermediate Migraine Verified 05/15/21 11:30 nut - unspecified AdvReac Intermediate Migraine Verified 05/15/21 11:30 <DON [place] BC - Last Filed: 05/15/21 15:32> Review of Systems Review of Systems: CONSTITUTIONAL: Reports fever and chills EYES: Denies visual changes, redness, or discharge. ENT: Denies rhinorrhea, congestion, sore throat, or otalgia. CARDIOVASCULAR: Denies chest pain, palpitations, or edema. RESPIRATORY: Reports intermittent cough and shortness of breath GASTROINTESTINAL: Reports abdominal pain, nausea, vomiting, diarrhea GENITOURINARY: Reports urinary symptoms, although she cannot further specify what specific symptoms she is experiencing SKIN: Denies rash or itching. MUSCULOSKELETAL: Denies back pain, joint pain, or myalgia. NEUROLOGIC: Denies headache, numbness, dizziness, or weakness. PSYCHIATRIC: Denies anxiety or depression. <Goyo Torres, DON, - Last Filed: 05/15/21 15:32> [facility] Past Medical History Medical History:
[2021-05-15 12:34] LABS: Atypical Lymphocytes Present; Platelet Estimate Adequate (Adequate)
[2021-05-15 12:35] LABS: Anisocytosis 2+ (NORMAL); Hypochromasia 1+ (NORMAL); Tear Drop Cells 1+ (NORMAL)
[2021-05-15 12:49] LABS: INR 1.1; Prothrombin Time 13.7 Seconds (11.1-14.7)
[2021-05-15 12:50] LABS: Partial Thromboplastin Time 36.5 SECONDS (22.3-36.8)
[2021-05-15 12:52] LABS: Troponin I < 0.012 ng/mL (0.000-0.034)
[2021-05-15 13:52] LABS: SARS-CoV-2 RNA PCR Negative
[2021-05-15] MEDS: POTASSIUM CHLORIDE 20 MEQ TABLET 40 MEQ PO (14:13)
[2021-05-15] MEDS: SODIUM CHLORIDE 0.9% IV 1,000 ML 999 ML IV CONT (14:14)
[2021-05-15 14:20] LABS: Add Urine Microscopic? YES; Appearance Urine Clear (Clear); Bilirubin Urine Negative (Negative); Blood Urine Negative (Negative); Color Urine Straw (Yellow); Glucose Urine UA Negative (Negative); Ketones Urine Negative (Negative); Leukocyte Esterase Ur 1+ LEU/UL (Negative); Mucus Urine Rare /lpf; Nitrate Urine Negative (Negative); Protein Urine Negative (Negative); RBC Urine 0-2 /hpf (0-2); Specific Grav Ur 1.029 (1.001-1.035); Urobilinogen Urine Negative mg/dL (<2.0)
[2021-05-15 15:03] LABS: Magnesium 1.8 mg/dL (1.6-2.3)
[2021-05-15 15:03] LABS: Reflex Lactic Acid Yes or No Add Lactic
[2021-05-15 16:04] LABS: Lactic Acid 1.4 mmol/L (0.7-2.1)
[2021-05-15] MEDS: RIVAROXABAN 15 MG TABLET PO (16:11)
[2021-05-15 16:17] LABS: Troponin I < 0.012 ng/mL (0.000-0.034)
--- NOTE | 2021-05-15 20:00 | PM.IMHP ---
H&P: HPI History of Present Illness Date/Time: 05/15/21 20:00 Chief Complaint: Nausea, vomiting, fatigue. Narrative: This is a pleasant 60-year-old female with hypertension and kidney cancer who presented to the emergency department earlier today for evaluation of nausea, vomiting, and fatigue. She was diagnosed with kidney cancer in January 2019 and initially had a nephrectomy however at the 1 year manisha she was found to have evidence of metastatic disease to the lungs and she has been on immunotherapy since that time. She gets infusions every 3 weeks with the last being on 05/10/2021. It is not unusual for her to feel bad about 3 days thereafter and as is usual she endorses low-grade fever, nausea, vomiting, and diarrhea. She feels more weak than usual and believes that she is dehydrated and thus she came in for evaluation. While in the emergency she mentioned intermittent shortness of breath, mainly with exertion, and a dry cough that is been ongoing for several months and a subsequent CTA of the chest showed small filling defects in both lungs consistent with pulmonary embolism. Labs are also consistent with dehydration she is being admitted in this setting. At the time my evaluation she feels a bit better and in fact is eating a dinner tray. Her main complaint is of sores in her mouth that have been present for quite some time, and this seems to make it harder for her to eat. She denies chest pain, pleuritic pain, lower extremity edema, and calf pain. She has no prior history of venous thromboembolism. Review of Systems Review of Systems: Twelve systems were reviewed. No sick contacts. Denies exposure to those positive for COVID 19. She has had her COVID vaccinations and flu shot. She denies orthopnea and PND. Endorses mild dysuria but nothing significant. No hematuria. She has not noticed any blood or mucus in the stool. No syncope or near syncope. Except as documented, all other systems were reviewed and are negative. [facility] Past Medical History Medical History (Updated 05/15/21 @ 21:02 by Randi Moreno PA-C) Allergic asthma Hypertension Metastatic renal cell carcinoma to lung Vitamin D deficiency Surgical History Surgical History (Updated 05/15/21 @ 20:55 by Randi Moreno PA-C) History of arthroscopic knee surgery History of cholecystectomy History of left nephrectomy (01/2019) Family History Family History Father Family history of blood dyscrasia, Onset Age: 68 Asthma Patient's father is Family history of heart disease in male family member before age 55 Mother Hypertension Family history of elevated blood lipids Family history of diabetes mellitus in first degree relative Sibling Asthma Grandparent Family history of malignant neoplasm of breast Other Diabetes mellitus Family history of sickle cell trait Social History Social History (Updated 05/15/21 @ 20:56 by Randi Moreno PA-C) Social History: Surrogate decision maker: Sha Condon, marti. Code status: Full code. Smoking status: Never smoker Second hand tobacco smoke exposure: No Alcohol intake: former Substance use: never Substance use type: does not use Living arrangements: alone Additional occupation/education comments: On disability. Meds Home Medications and Allergies Home Medications Medication Instructions Recorded Confirmed Type aspirin 81 mg tablet,delayed 81 mg PO DAILY 10/13/19 01/21/21 History release azelastine 137 mcg (0.1 %) nasal 1 spray NASAL Q12H #30 ml 10/13/19 01/21/21 Rx spray aerosol cetirizine 10 mg PO DAILY 02/23/20 01/21/21 History ergocalciferol (vitamin D2) 1,250 1,250 mcg PO WEEKLY #14 cap 08/11/20 01/21/21 Rx mcg (50,000 unit) capsule fluticasone propionate 50 1 spray INTRANASAL Q12H #18.2 ml 08/11/20 01/21/21 Rx mcg/actuation nasal spray,suspension metoprolol succinate 50 mg 50 mg PO D
--- NOTE | 2021-05-15 21:45 | ADMGEN ---
This patient, Jailyn Condon, was admitted to Medical Room 348-01. Patient/family oriented to hospital policies and general routines including ID bracelet, bed and alarms, visiting hours, pain management, procedures, bathroom and other care routines, personal items, smoking policy, room service/diet, and visiting hours. Information on how to activate the Rapid Response Team has been discussed. Patient/Family are encouraged to report perceived risks to care and to ask questions if they do not understand what they are told or what they should do.
[2021-05-15] MEDS: SODIUM CHLORIDE 0.9% IV 1,000 ML 100 ML IV CONT (22:18)
[2021-05-16] VITALS (8 sets, daily range): BP systolic 132–150; BP diastolic 78–83; PULSE 60–83; RESP 14–16; TEMP 35.6–36.7; O2SAT 96–98; BMI 30.5
[2021-05-16] MEDS: MAGNES & ALUM HYD/SIMETH/DIPHENHYD/LIDOCAINE 119 ML MOUTHWASH BY MOUTH ×6 (01:30→20:36)
--- NOTE | 2021-05-16 01:44 | PHAR ---
PHARMACY VERIFIED HOME MED: *USE FROM HOME* Axitinib (Inlyta) 5 MG TAKE ONE TABLET BY MOUTH EVERY 12 HOURS
[2021-05-16] MEDS: LEVOTHYROXINE SODIUM 25 MCG TABLET PO (05:34)
[2021-05-16] MEDS: SENNA/DOCUSATE SODIUM TABLET 1 TAB PO ×2 (05:34→20:35)
[2021-05-16 06:36] LABS: Basophils Percent Auto 0.4 % (0.2-1.2); Eosinophils Absolute Auto 0.1 K/mm3 (0-0.3); Eosinophils Percent Auto 1.1 % (0-4.4); Hematocrit 36.3 % (37.0-47.0); Hemoglobin 11.4 g/dL (12.0-15.0); Immature Granulocyte Absolute 0.02 K/mm3 (0.00-0.031); Immature Granulocyte Percent A 0.3 % (0-0.5); Lymphocytes Absolute Auto 5.01 K/mm3 (0.9-3.2); Mean Corpuscular HGB Conc 31.4 g/dl (32-36); Mean Corpuscular Hemoglobin 26.2 pg (26-34); Mean Corpuscular Volume 83.4 fl (80-100); Mean Platelet Volume 11.3 fl (7.4-10.4); Monocytes Absolute Auto 0.7 K/mm3 (0.1-0.6); Monocytes Percent Auto 8.7 % (2.6-8.5); Neutrophils Absolute Auto 2.1 K/mm3 (1.3-6.7); Neutrophils Percent Auto 26.5 % (45.5-73.1); Platelet Count Result 173 k/mm3 (150-375); Red Blood Count 4.35 M/mm3 (4.2-5.4); Red Cell Distribution Width 17.2 % (11.5-14.5)
[2021-05-16 06:53] LABS: Alanine Aminotransferase 13 U/L (4-35); Alkaline Phosphatase 56 U/L (38-126); Anion Gap 6 mmol/L (8-16); Aspartate Amino Transferase 21 U/L (14-36); Bilirubin,Total 0.7 mg/dL (0.2-1.3); Blood Urea Nitrogen 8 mg/dL (7-17); Carbon Dioxide 24 mmol/L (22-30); Chloride 108 mmol/L (98-107); Estimated CRCL calculation 53 ml/min; Estimated Glomerular Filt Rate > 60; Glucose 96 mg/dL (65-110); Magnesium 1.8 mg/dL (1.6-2.3); Potassium 3.5 mmol/L (3.4-5.0); Sodium 138 mmol/L (137-145)
[2021-05-16 07:29] LABS: Platelet Estimate Adequate (Adequate)
[2021-05-16 07:31] LABS: Anisocytosis 1+ (NORMAL); Helmet Cells 1+ (NORMAL); Ovalocytes 1+ (NORMAL); Tear Drop Cells 1+ (NORMAL)
[2021-05-16] MEDS: LORATADINE 10 MG TABLET PO (10:05)
[2021-05-16] MEDS: MULTIVITAMINS THERAPEUTIC TAB (*BKC) 1 TABLET PO (10:05)
[2021-05-16] MEDS: FLUTICASONE PROPIONATE 0.05% NA SPR 16 GM BTL (*BKC) 1 SPRAY NASAL ×2 (10:05→20:35)
[2021-05-16] MEDS: METOPROLOL SUCCINATE EXT REL 25 MG TABCR PO (10:05)
[2021-05-16] MEDS: ASPIRIN 81 MG ENTERIC TABLET PO (10:05)
[2021-05-16] MEDS: AZELASTINE HCL NASAL 0.1% 137 MCG/SPR 30 ML BTL 1 SPRAY NASAL ×2 (10:05→20:34)
[2021-05-16] MEDS: CEFDINIR 300 MG CAPSULE PO ×2 (10:05→20:35)
--- NOTE | 2021-05-16 10:05 | PM.IMPN ---
Progress Note: A&P Assessment and Plan (1) Pulmonary embolism: Qualifiers: Acute cor pulmonale presence: unspecified Chronicity: acute Pulmonary embolism type: unspecified Qualified Code(s): I26.99 - Other pulmonary embolism without acute cor pulmonale Code(s): I26.99 - Other pulmonary embolism without acute cor pulmonale Status: Acute Assessment and Plan: Small clot burden Continue Lower extremity with no DVT (2) Dehydration: Code(s): E86.0 - Dehydration Status: Acute Assessment and Plan: Secondary to decreased intake, nausea, vomiting, and diarrhea related to recent infusion Continue IVF Encourage po intake (3) Metastatic renal cell carcinoma to lung: Code(s): C78.00 - Secondary malignant neoplasm of unspecified lung; C64.9 - Malignant neoplasm of unspecified kidney, except renal pelvis Status: Acute Assessment and Plan: Continue medication as prescribed. Magic mouthwash ordered for ulcerations of the oral mucosa. (4) Asthma: Code(s): J45.909 - Unspecified asthma, uncomplicated Status: Acute Assessment and Plan: No acute issues Continue maintenance inhalers (5) Hypertension: Code(s): I10 - Essential (primary) hypertension Status: Acute Assessment and Plan: Stable Continue home meds Monitor (6) Hypokalemia: Code(s): E87.6 - Hypokalemia Status: Acute Assessment and Plan: Resolved K+ 3.5 Monitor Subjective Date/time seen: 05/16/21 10:05 Interval history: Pt seen and examined; labs, vs, diagnostic results reviewed; pt denies any CP; continues with mouth pain Review of Systems Review of Systems: All systems reviewed & are unremarkable except as noted in HPI and below Exam Narrative: General: NAD, HEENT: Glasses. EOMI. Sclerae anicteric. Shallow ulcerations of the buccal mucosa. Neck: Supple. Respiratory: Lungs are clear to auscultation bilaterally. Cardiovascular: Regular rate and rhythm with S1-S2. Gastrointestinal: Abdomen is soft, nontender, and nondistended with positive bowel sounds. Skin: Warm and dry. No rash or lesions on limited exam. Extremities: No cyanosis, clubbing, or edema. Radial and pedal pulses intact. Neurological: Alert. No gross focal deficits. Psychiatric: Appropriate mood and affect. Objective Data Vital Signs Vital Signs: Vital Signs - 24 hr 05/15/21 11:33 05/15/21 11:37 05/15/21 11:45 Temperature 36.3 C L Pulse Rate 89 87 85 Respiratory Rate 22 H 19 18 Blood Pressure 118/71 Pulse Oximetry 97 98 97 05/15/21 11:46 05/15/21 12:01 05/15/21 12:02 Temperature Pulse Rate 82 82 83 Respiratory Rate 20 20 17 Blood Pressure 133/91 H 125/87 Pulse Oximetry 95 98 05/15/21 12:15 05/15/21 12:16 05/15/21 12:30 Temperature Pulse Rate 82 83 74 Respiratory Rate 14 14 18 Blood Pressure 109/87 Pulse Oximetry 98 94 99 05/15/21 12:31 05/15/21 15:39 05/15/21 15:45 Temperature Pulse Rate 76 78 77 Respiratory Rate 17 17 18 Blood Pressure 131/85 Pulse Oximetry 96 100 100 05/15/21 16:00 05/15/21 16:11 05/15/21 16:12 Temperature Pulse Rate 76 77 79 Respiratory Rate 17 16 17 Blood Pressure 136/79 Pulse Oximetry 100 99 100 05/15/21 16:15 05/15/21 16:16 05/15/21 16:30 Temperature Pulse Rate 73 76 76 Respiratory Rate 15 20 19 Blood Pressure 132/84 Pulse Oximetry 99 99 99 05/15/21 16:31 05/15/21 16:45 05/15/21 16:46 Temperature Pulse Rate 75 77 77 Respiratory Rate 15 17 15 Blood Pressure 126/86 122/81 Pulse Oximetry 99 100 100 05/15/21 17:00 05/15/21 17:01 05/15/21 17:15 Temperature Pulse Rate 77 77 79 Respiratory Rate 19 19 13 Blood Pressure 137/81 Pulse Oximetry 100 98 97 05/15/21 17:16 05/15/21 17:17 05/15/21 18:27 Temperature Pulse Rate 79 78 92 Respiratory Rate 15 18 20 Blood Pressure 132/89 Pulse Oximetry 98 98 98 05/15/21 18:30
[2021-05-16] MEDS: SODIUM CHLORIDE 0.9% IV 1,000 ML 100 ML IV CONT ×2 (10:06→17:17)
[2021-05-16] MEDS: RIVAROXABAN 20 MG TABLET PO (17:13)
[2021-05-16] MEDS: amLODIPine BESYLATE 5 MG TABLET 10 MG PO (20:35)
[2021-05-16] MEDS: ACETAMINOPHEN 325 MG TABLET 650 MG PO (20:40)
[2021-05-17] VITALS (10 sets, daily range): BP systolic 146–153; BP diastolic 92–98; PULSE 58–78; RESP 16–19; TEMP 36.4–36.7; O2SAT 98–100
[2021-05-17] MEDS: MAGNES & ALUM HYD/SIMETH/DIPHENHYD/LIDOCAINE 119 ML MOUTHWASH BY MOUTH ×6 (01:08→21:56)
[2021-05-17] MEDS: LEVOTHYROXINE SODIUM 25 MCG TABLET PO (05:41)
[2021-05-17] MEDS: SODIUM CHLORIDE 0.9% IV 1,000 ML 100 ML IV CONT ×2 (05:42→15:45)
[2021-05-17 05:58] LABS: Hematocrit 36.1 % (37.0-47.0); Hemoglobin 11.8 g/dL (12.0-15.0); Mean Corpuscular HGB Conc 32.7 g/dl (32-36); Mean Corpuscular Hemoglobin 26.4 pg (26-34); Mean Corpuscular Volume 80.8 fl (80-100); Platelet Count Result 173 k/mm3 (150-375); Red Blood Count 4.47 M/mm3 (4.2-5.4); Red Cell Distribution Width 16.1 % (11.5-14.5); White Blood Count 7.8 K/mm3 (4.5-10.0)
[2021-05-17 06:19] LABS: Blood Urea Nitrogen 5 mg/dL (7-17); Calcium 8.6 mg/dL (8.4-10.2); Carbon Dioxide 25 mmol/L (22-30); Estimated CRCL calculation 53 ml/min; Estimated Glomerular Filt Rate > 60; Glucose 98 mg/dL (65-110); Potassium 3.3 mmol/L (3.4-5.0); Sodium 137 mmol/L (137-145)
[2021-05-17 06:20] LABS: Anion Gap 7 mmol/L (8-16); Chloride 105 mmol/L (98-107)
[2021-05-17] MEDS: METOPROLOL SUCCINATE EXT REL 25 MG TABCR PO (09:06)
[2021-05-17] MEDS: CEFDINIR 300 MG CAPSULE PO ×2 (09:06→21:56)
[2021-05-17] MEDS: MULTIVITAMINS THERAPEUTIC TAB (*BKC) 1 TABLET PO (09:06)
[2021-05-17] MEDS: POTASSIUM CHLORIDE 20 MEQ TABLET PO (09:06)
[2021-05-17] MEDS: ASPIRIN 81 MG ENTERIC TABLET PO (09:06)
[2021-05-17] MEDS: LORATADINE 10 MG TABLET PO (09:06)
[2021-05-17] MEDS: FLUTICASONE PROPIONATE 0.05% NA SPR 16 GM BTL (*BKC) 1 SPRAY NASAL ×2 (09:07→21:57)
[2021-05-17] MEDS: AZELASTINE HCL NASAL 0.1% 137 MCG/SPR 30 ML BTL 1 SPRAY NASAL ×2 (09:07→21:57)
[2021-05-17] MEDS: ACETAMINOPHEN 325 MG TABLET 650 MG PO (13:38)
--- NOTE | 2021-05-17 16:13 | PM.IMPN ---
Progress Note: A&P Assessment and Plan (1) Pulmonary embolism: Qualifiers: Acute cor pulmonale presence: unspecified Chronicity: acute Pulmonary embolism type: unspecified Qualified Code(s): I26.99 - Other pulmonary embolism without acute cor pulmonale Code(s): I26.99 - Other pulmonary embolism without acute cor pulmonale Status: Acute Assessment and Plan: -Lower extremity with no DVT -Did have some sob w/ exertion today but is improving. If continues to improve possibly discharge tomorrow. Oxygen 98% on RA -Continue Xaralto (2) Dehydration: Code(s): E86.0 - Dehydration Status: Acute Assessment and Plan: -Secondary to decreased intake, nausea, vomiting, and diarrhea related to recent infusion -hydrated w/ IVF -PO intake improved, will dc IVF at this time (3) Metastatic renal cell carcinoma to lung: Code(s): C78.00 - Secondary malignant neoplasm of unspecified lung; C64.9 - Malignant neoplasm of unspecified kidney, except renal pelvis Status: Acute Assessment and Plan: Continue medication as prescribed. Magic mouthwash ordered for ulcerations of the oral mucosa. (4) Asthma: Code(s): J45.909 - Unspecified asthma, uncomplicated Status: Acute Assessment and Plan: No acute issues Continue maintenance inhalers (5) Hypertension: Code(s): I10 - Essential (primary) hypertension Status: Acute Assessment and Plan: Stable Continue home meds Monitor (6) Hypokalemia: Code(s): E87.6 - Hypokalemia Status: Acute Assessment and Plan: Likely due to increased PO intake. Monitored and replaced as needed. Subjective Date/time seen: 05/17/21 16:13 Interval history: 60-year-old female with hypertension and kidney cancer admitted for PE. Pt reports some sob w/ exertion when ambulating to the restroom today. At rest her sob is improving. No chest pain. Fatigue is also improving. Had some nausea this morning but no vomiting. Review of Systems Review of Systems: General: Denies fevers Eyes: Denies vision changes ENT: Denies nasal congestion or sore throat Respiratory: Denies cough, +shortness of breath Cardiovascular: Denies chest pain or lower extremity edema Gastrointestinal: Denies abdominal pain, vomiting, or diarrhea, +nausea Genitourinary: Denies dysuria Musculoskeletal: Denies back pain Neurological: Denies headache or motor weakness Integumentary: Denies rash Exam Narrative: General: No acute distress, non toxic appearing Eyes: PERRL, no scleral icterus HEENT: NCAT, external ears normal, MMM Respiratory: No respiratory distress, Lungs CTA bilaterally, no wheezing Cardiovascular: RRR, no murmur Abdominal: Soft, nontender, non distended, no rebound or guarding Musculoskeletal: Moves all 4 extremities, no edema Neurological: A/Ox3, speech normal, no facial asymmetry Skin: Warm, dry, no rashes Psychiatric: Normal affect, normal mood Objective Data Vital Signs Vital Signs: Vital Signs - 24 hr 05/16/21 20:00 05/16/21 20:33 05/17/21 00:00 Temperature 98.0 F Pulse Rate 60 68 68 Respiratory Rate 16 Blood Pressure 149/83 H Pulse Oximetry 96 05/17/21 04:00 05/17/21 05:57 05/17/21 08:00 Temperature 97.8 F Pulse Rate 60 64 77 Respiratory Rate 16 Blood Pressure 146/92 H Pulse Oximetry 98 05/17/21 09:06 05/17/21 12:00 05/17/21 14:30 Temperature 97.5 F L Pulse Rate 78 63 65 Respiratory Rate 19 Blood Pressure 153/98 H Pulse Oximetry 100 Intake/Output Intake/Output: Intake & Output 05/14/21 05/15/21 05/16/21 05/17/21 23:59 23:59 23:59 23:59 Intake Total 1999 3490 1480 Output Total 1600 1800 Balance 1999 1890 -320 Meds/Results Medications: Active Medications Generic Name Dose Route Start Last Admin Trade Name Barron PRN Reason Stop Dose Admin Acetaminophen 650 mg 05/15/21 15:25 05/07
[2021-05-17] MEDS: RIVAROXABAN 20 MG TABLET PO (18:10)
[2021-05-17] MEDS: amLODIPine BESYLATE 5 MG TABLET 10 MG PO (21:55)
[2021-05-17] MEDS: SENNA/DOCUSATE SODIUM TABLET 1 TAB PO (21:56)
[2021-05-18] VITALS (9 sets, daily range): BP systolic 144–150; BP diastolic 96–99; PULSE 60–79; RESP 16–18; TEMP 36.2–36.5; O2SAT 98–100
[2021-05-18] MEDS: MAGNES & ALUM HYD/SIMETH/DIPHENHYD/LIDOCAINE 119 ML MOUTHWASH BY MOUTH ×6 (01:25→20:34)
[2021-05-18 06:37] LABS: Basophils Percent Auto 0.2 % (0.2-1.2); Eosinophils Absolute Auto 0.1 K/mm3 (0-0.3); Eosinophils Percent Auto 0.6 % (0-4.4); Hematocrit 38.8 % (37.0-47.0); Immature Granulocyte Absolute 0.02 K/mm3 (0.00-0.031); Immature Granulocyte Percent A 0.2 % (0-0.5); Lymphocytes Absolute Auto 7.42 K/mm3 (0.9-3.2); Lymphocytes Percent Auto 78.8 % (18.3-44.2); Mean Corpuscular HGB Conc 33.5 g/dl (32-36); Mean Corpuscular Hemoglobin 26.6 pg (26-34); Mean Corpuscular Volume 79.5 fl (80-100); Mean Platelet Volume 11.3 fl (7.4-10.4); Monocytes Absolute Auto 0.7 K/mm3 (0.1-0.6); Monocytes Percent Auto 7.1 % (2.6-8.5); Neutrophils Absolute Auto 1.2 K/mm3 (1.3-6.7); Neutrophils Percent Auto 13.1 % (45.5-73.1); Platelet Count Result 214 k/mm3 (150-375); Red Blood Count 4.88 M/mm3 (4.2-5.4); Red Cell Distribution Width 15.9 % (11.5-14.5); White Blood Count 9.4 K/mm3 (4.5-10.0)
[2021-05-18] MEDS: LEVOTHYROXINE SODIUM 25 MCG TABLET PO (06:40)
[2021-05-18 06:56] LABS: Alanine Aminotransferase 15 U/L (4-35); Alkaline Phosphatase 57 U/L (38-126); Anion Gap 9 mmol/L (8-16); Aspartate Amino Transferase 30 U/L (14-36); Bilirubin,Total 0.7 mg/dL (0.2-1.3); Blood Urea Nitrogen 6 mg/dL (7-17); Calcium 9.2 mg/dL (8.4-10.2); Carbon Dioxide 27 mmol/L (22-30); Chloride 102 mmol/L (98-107); Estimated CRCL calculation 53 ml/min; Estimated Glomerular Filt Rate > 60; Glucose 96 mg/dL (65-110); Potassium 3.5 mmol/L (3.4-5.0); Sodium 138 mmol/L (137-145)
[2021-05-18 07:26] LABS: Atypical Lymphocytes Present; Platelet Estimate Adequate (Adequate)
[2021-05-18] MEDS: METOPROLOL SUCCINATE EXT REL 25 MG TABCR PO (10:05)
[2021-05-18] MEDS: ACETAMINOPHEN 325 MG TABLET 650 MG PO ×2 (10:05→20:38)
[2021-05-18] MEDS: CEFDINIR 300 MG CAPSULE PO ×2 (10:05→20:32)
[2021-05-18] MEDS: ASPIRIN 81 MG ENTERIC TABLET PO (10:05)
[2021-05-18] MEDS: ERGOCALCIFEROL 50,000 UNIT CAPSULE 50000 UNITS PO (10:05)
[2021-05-18] MEDS: LORATADINE 10 MG TABLET PO (10:05)
[2021-05-18] MEDS: MULTIVITAMINS THERAPEUTIC TAB (*BKC) 1 TABLET PO (10:05)
[2021-05-18] MEDS: AZELASTINE HCL NASAL 0.1% 137 MCG/SPR 30 ML BTL 1 SPRAY NASAL ×2 (10:06→20:33)
[2021-05-18] MEDS: FLUTICASONE PROPIONATE 0.05% NA SPR 16 GM BTL (*BKC) 1 SPRAY NASAL ×2 (10:06→20:33)
--- NOTE | 2021-05-18 11:04 | PM.IMPN ---
Progress Note: A&P Assessment and Plan (1) Pulmonary embolism: Qualifiers: Acute cor pulmonale presence: unspecified Chronicity: acute Pulmonary embolism type: unspecified Qualified Code(s): I26.99 - Other pulmonary embolism without acute cor pulmonale Code(s): I26.99 - Other pulmonary embolism without acute cor pulmonale Status: Acute Assessment and Plan: -Lower extremity with no DVT -Did have worsening sob with exertion -Oxygen 97% on RA -she had been started on 20 mg daily of xaralto, I switched her today to 15 mg BID which is the correct loading dose for PE (2) Dehydration: Code(s): E86.0 - Dehydration Status: Acute Assessment and Plan: -Secondary to decreased intake, nausea, vomiting, and diarrhea related to recent infusion -hydrated w/ IVF -PO intake improved, will dc IVF at this time (3) Metastatic renal cell carcinoma to lung: Code(s): C78.00 - Secondary malignant neoplasm of unspecified lung; C64.9 - Malignant neoplasm of unspecified kidney, except renal pelvis Status: Acute Assessment and Plan: Continue medication as prescribed. Magic mouthwash ordered for ulcerations of the oral mucosa. (4) Asthma: Code(s): J45.909 - Unspecified asthma, uncomplicated Status: Acute Assessment and Plan: No acute issues Continue maintenance inhalers (5) Hypertension: Code(s): I10 - Essential (primary) hypertension Status: Acute Assessment and Plan: Stable Continue home meds Monitor (6) Hypokalemia: Code(s): E87.6 - Hypokalemia Status: Acute Assessment and Plan: Likely due to increased PO intake. Monitored and replaced as needed. Subjective Date/time seen: 05/18/21 11:04 Interval history: 60-year-old female with hypertension and kidney cancer admitted for PE. Pt reports increased sob w/ exertion when ambulating. No chest pain. Fatigue is also increased today. Also notes a mild headache, dry cough at night and clear rhinorrhea which is typical of her seasonal allergies, chills, and mouth pain secondary to the ulcers. She also notes left sided abdominal pain that is constant since admission. Reports increased urinary frequency on arrival but this has resolved. She has not had a BM in 4 days. Review of Systems Review of Systems: General: Denies fevers, +chills Eyes: Denies vision changes ENT: +rhinorrhea, + post nasal drip Respiratory: + cough, +shortness of breath Cardiovascular: Denies chest pain or lower extremity edema Gastrointestinal: + abdominal pain, denies vomiting or diarrhea Genitourinary: Denies dysuria, +increased urinary frequency Musculoskeletal: Denies back pain Neurological: + headache, denies motor weakness Integumentary: Denies rash Exam Narrative: General: No acute distress, non toxic appearing Eyes: PERRL, no scleral icterus HEENT: NCAT, external ears normal, MMM Respiratory: No respiratory distress, Lungs CTA bilaterally, no wheezing Cardiovascular: RRR, no murmur Abdominal: Soft, non distended, no rebound or guarding. minimal ttp under L breast Musculoskeletal: Moves all 4 extremities, no edema Neurological: A/Ox3, speech normal, no facial asymmetry Skin: Warm, dry, no rashes Psychiatric: Normal affect, normal mood Objective Data Vital Signs Vital Signs: Vital Signs - 24 hr 05/17/21 12:00 05/17/21 14:30 05/17/21 16:00 Temperature 97.5 F L Pulse Rate 63 65 62 Respiratory Rate 19 Blood Pressure 153/98 H Pulse Oximetry 100 05/17/21 20:00 05/17/21 21:50 05/18/21 00:00 Temperature 98.1 F Pulse Rate 61 58 L 60 Respiratory Rate 16 Blood Pressure 152/98 H Pulse Oximetry 100 05/18/21 04:21 05/18/21 05:54 05/18/21 08:00 Temperature 97.1 F L Pulse Rate 64 68 79 Respiratory Rate 16 Blood Pressure 149/96 H Pulse Oximetry 100 Intake/Output Intake/Output: Intake & Output
[2021-05-18] MEDS: polyethylene glycoL 3350 17 GM POWD.PACK PO (12:36)
[2021-05-18 13:42] LABS: Add Urine Microscopic? NO; Appearance Urine Clear (Clear); Bilirubin Urine Negative (Negative); Blood Urine Negative (Negative); Color Urine Straw (Yellow); Glucose Urine UA Negative (Negative); Ketones Urine Negative (Negative); Leukocyte Esterase Ur Negative LEU/UL (NEGATIVE); Nitrate Urine Negative (Negative); Protein Urine Negative (Negative); Urobilinogen Urine Negative mg/dL (<2.0)
[2021-05-18 14:04] LABS: Specific Grav Ur 1.003 (1.001-1.035)
[2021-05-18] MEDS: RIVAROXABAN 15 MG TABLET PO (17:20)
[2021-05-18] MEDS: amLODIPine BESYLATE 5 MG TABLET 10 MG PO (20:32)
[2021-05-18] MEDS: SENNA/DOCUSATE SODIUM TABLET 1 TAB PO (20:33)
[2021-05-19] VITALS: PULSE 63
[2021-05-19] MEDS: MAGNES & ALUM HYD/SIMETH/DIPHENHYD/LIDOCAINE 119 ML MOUTHWASH BY MOUTH ×3 (00:33→08:22)
[2021-05-19 04:00] VITALS: PULSE 60
[2021-05-19] MEDS: LEVOTHYROXINE SODIUM 25 MCG TABLET PO (05:44)
[2021-05-19 06:29] LABS: Basophils Percent Auto 0.1 % (0.2-1.2); Hematocrit 39.6 % (37.0-47.0); Hemoglobin 12.8 g/dL (12.0-15.0); Immature Granulocyte Absolute 0.01 K/mm3 (0.00-0.031); Immature Granulocyte Percent A 0.1 % (0-0.5); Lymphocytes Absolute Auto 7.13 K/mm3 (0.9-3.2); Lymphocytes Percent Auto 79.1 % (18.3-44.2); Mean Corpuscular HGB Conc 32.3 g/dl (32-36); Mean Corpuscular Hemoglobin 26.4 pg (26-34); Mean Corpuscular Volume 81.8 fl (80-100); Mean Platelet Volume 10.7 fl (7.4-10.4); Monocytes Absolute Auto 0.7 K/mm3 (0.1-0.6); Monocytes Percent Auto 8.1 % (2.6-8.5); Neutrophils Absolute Auto 1.1 K/mm3 (1.3-6.7); Neutrophils Percent Auto 12.6 % (45.5-73.1); Platelet Count Result 238 k/mm3 (150-375); Red Blood Count 4.84 M/mm3 (4.2-5.4); Red Cell Distribution Width 16.8 % (11.5-14.5)
[2021-05-19 06:48] LABS: Alanine Aminotransferase 16 U/L (4-35); Albumin Level 3.8 g/dL (3.5-5.1); Alkaline Phosphatase 57 U/L (38-126); Anion Gap 8 mmol/L (8-16); Aspartate Amino Transferase 30 U/L (14-36); Bilirubin,Total 0.6 mg/dL (0.2-1.3); Blood Urea Nitrogen 13 mg/dL (7-17); Calcium 9.2 mg/dL (8.4-10.2); Carbon Dioxide 27 mmol/L (22-30); Chloride 101 mmol/L (98-107); Estimated CRCL calculation 45 ml/min; Estimated Glomerular Filt Rate 55; Glucose 102 mg/dL (65-110); Potassium 3.4 mmol/L (3.4-5.0); Sodium 136 mmol/L (137-145)
[2021-05-19 08:00] VITALS: PULSE 66
[2021-05-19] MEDS: RIVAROXABAN 15 MG TABLET PO (08:17)
[2021-05-19] MEDS: ASPIRIN 81 MG ENTERIC TABLET PO (08:17)
[2021-05-19] MEDS: ACETAMINOPHEN 325 MG TABLET 650 MG PO (08:17)
[2021-05-19] MEDS: LORATADINE 10 MG TABLET PO (08:18)
[2021-05-19] MEDS: FLUTICASONE PROPIONATE 0.05% NA SPR 16 GM BTL (*BKC) 1 SPRAY NASAL (08:19)
[2021-05-19] MEDS: AZELASTINE HCL NASAL 0.1% 137 MCG/SPR 30 ML BTL 1 SPRAY NASAL (08:19)
[2021-05-19] MEDS: MULTIVITAMINS THERAPEUTIC TAB (*BKC) 1 TABLET PO (08:19)
[2021-05-19 08:21] VITALS: PULSE 63
[2021-05-19] MEDS: METOPROLOL SUCCINATE EXT REL 25 MG TABCR PO (08:21)
[2021-05-19 08:59] VITALS: BP 142/87; PULSE 65; RESP 16; TEMP 36.2; O2SAT 96
--- NOTE | 2021-05-19 11:27 | PM.DS ---
DS: Admitting Diagnosis Discharge Date 05/19/21 Admitting Diagnosis pulmonary embolism DS: Discharge Diagnosis Discharge Diagnosis (1) Pulmonary embolism: Qualifiers: Acute cor pulmonale presence: unspecified Chronicity: acute Pulmonary embolism type: unspecified Qualified Code(s): I26.99 - Other pulmonary embolism without acute cor pulmonale Code(s): I26.99 - Other pulmonary embolism without acute cor pulmonale Status: Acute Assessment and Plan: -Lower extremity with no DVT -still mild sob with exertion but much better -Oxygen 100% on RA -currently on 15 mg BID Xaralto, will continue this x21 days on discharge followed by 20 mg daily. -Follow up with pcp for further management -pt stable for discharge at this time (2) Dehydration: Code(s): E86.0 - Dehydration Status: Acute Assessment and Plan: -Secondary to decreased intake, nausea, vomiting, and diarrhea related to recent infusion -hydrated w/ IVF -PO intake improved, IVF discontinued -Resolved (3) Metastatic renal cell carcinoma to lung: Code(s): C78.00 - Secondary malignant neoplasm of unspecified lung; C64.9 - Malignant neoplasm of unspecified kidney, except renal pelvis Status: Acute Assessment and Plan: Continued medication as prescribed. Magic mouthwash ordered for ulcerations of the oral mucosa. (4) Asthma: Code(s): J45.909 - Unspecified asthma, uncomplicated Status: Acute Assessment and Plan: No acute issues Continued maintenance inhalers (5) Hypertension: Code(s): I10 - Essential (primary) hypertension Status: Acute Assessment and Plan: Stable Continued home meds Monitor (6) Hypokalemia: Code(s): E87.6 - Hypokalemia Status: Acute Assessment and Plan: Likely due to increased PO intake. Monitored and replaced as needed. Resolved (7) UTI (urinary tract infection): Code(s): N39.0 - Urinary tract infection, site not specified Status: Acute Assessment and Plan: -diagnosed w/ UTI per her PCP -had been started on Cefdinir outpatient, completed course here during admission -suspect this was contributing to her overall malaise, fatigue, and nausea -feeling much better, stable for discharge at this time DS: Summary Hospital Course Reason for hospitalization: 60-year-old female with hypertension and kidney cancer admitted for PE. Please see HPI for further details. Hospital Course: Please see above for details of hospital course. Status at Discharge Cognitive/behavioral status at discharge: stable Functional status at discharge: independent ambulation Time Spent with Patient Time attestation: Total time spent providing and/or coordinating discharge services: 32 Time spent: Greater than 30 minutes Exam Narrative: General: No acute distress, non toxic appearing Eyes: PERRL, no scleral icterus HEENT: NCAT, external ears normal, MMM Respiratory: No respiratory distress, Lungs CTA bilaterally, no wheezing Cardiovascular: RRR, no murmur Abdominal: Soft, non tender, non distended, no rebound or guarding. Musculoskeletal: Moves all 4 extremities, no edema Neurological: A/Ox3, speech normal, no facial asymmetry Skin: Warm, dry, no rashes Psychiatric: Normal affect, normal mood DS: Data Data Completed and Pending Labs on day of discharge: Labs from last 24 hours 05/19/21 05/19/21 05/18/21 05:57 05:57 13:25 WBC 9.0 RBC 4.84 Hgb 12.8 Hct 39.6 MCV 81.8 MCH 26.4 MCHC 32.3 RDW 16.8 H Plt Count 238 MPV 10.7 H Immature Gran % (Auto) 0.1 Neut % (Auto) 12.6 L Lymph % (Auto) 79.1 H Ripley % (Auto) 8.1 Eos % (Auto) 0.0 Baso % (Auto) 0.1 L Lymph # (Auto) 7.13 H R[place]y # (Auto) 0.7 H Eos # (Auto) 0.0 Baso # (Auto) 0.0 Abs Immat Gran (auto) 0.01 Absolute Neuts (auto) 1.1 L Absolut
[2021-05-19 12:00] VITALS: PULSE 78
== END 2021-05-19 14:37 | disposition home or self-care (01) ==
LOC: ANHED 14:14 → ANH3MEDSUR 17:41 → ANH3MED 22:02
PROVIDERS: Nurse Practitioner Adult Health; Physician Assistant; Admitting Provider Internal Medicine; Emergency Provider Nurse Practitioner; PCP Family Medicine; Visit Provider Internal Medicine
DX: I26.99 Other pulmonary embolism without acute cor pulmonale (principal); E86.0 Dehydration; C78.00 Secondary malignant neoplasm of unspecified lung; E87.6 Hypokalemia; N39.0 Urinary tract infection, site not specified; R11.2 Nausea with vomiting, unspecified; R19.7 Diarrhea, unspecified; R06.02 Shortness of breath; I10 Essential (primary) hypertension; J45.909 Unspecified asthma, uncomplicated; E55.9 Vitamin D deficiency, unspecified; Z85.528 Personal history of other malignant neoplasm of kidney; Z90.5 Acquired absence of kidney; Z79.82 Long term (current) use of aspirin; Z79.51 Long term (current) use of inhaled steroids; Z20.822 Contact with and (suspected) exposure to COVID-19
CPT/HCPCS: 36415; 71275; 74177; 80048; 80053; 81001; 81003; 83605; 83690; 83735; 84484; 85025; 85027; 85610; 85730; 87804; 93005; 93970; 96360; 96361; 96374; 99285; A9270; C9803; G0378; J2405; J7030; Q9967; U0003; U0005

== ENCOUNTER 2021-08-25 13:30 | Emergency (ER) | payer OTHER, MEDICAID, SELFPAY ==
--- NOTE | ~2021-08-25 | CT_ITS ---
EXAMINATION: CT soft tissue neck chest w DATE: 08/25/2021 17:24 INDICATION: Left neck lump, history of metastatic kidney cancer TECHNIQUE: Computed tomography (CT) of the neck and chest was performed with 100 cc of Omnipaque 350 intravenous contrast. The dose-length product (DLP) was 748.16 mGy-cm. Automated exposure control and iterative reconstruction technique were employed. COMPARISON: 05/15/2021 FINDINGS: CT NECK: No specific correlate is identified for the patient's reported left neck tenderness. No path ologically enlarged cervical lymph nodes are identified. The visualized osseous structures are unrema rkable. CT CHEST: There is unchanged mild elevation of the right hemidiaphragm. There are scattered nodules t hroughout the lungs, stable to slightly decreased in size, consistent with metastatic disease. The howard ngs are free of acute opacities. There is no pleural effusion or pneumothorax. No pathologically enla rged thoracic lymph nodes are identified. The heart size is normal. The gallbladder is surgically abs ent. There is mild enlargement of the common bile duct and central intrahepatic ducts which is likely due to post cholecystectomy state. There are partially imaged changes of left nephrectomy. IMPRESSION: 1. No CT correlate for the patient's left neck pain. 2. Multiple pulmonary nodules, stable to slightly decreased in size, consistent with metastatic disea se. Reviewed, dictated and finalized at location F. IMPRESSION: 1. No CT correlate for the patient's left neck pain. 2. Multiple pulmonary nodules, stable to slightly decreased in size, consistent with metastatic disease.
--- NOTE | ~2021-08-25 | CT_ITS ---
EXAMINATION: CT brain wo con DATE: 08/25/2021 15:11 INDICATION: Renal carcinoma. Worsening headache. TECHNIQUE: Computed tomography (CT) of the head was performed without intravenous contrast. Sagittal and coronal reconstructions were performed. The mA was adjusted according to patient size. Iterative reconstruction technique was employed. The dose-length product was 605.33 mGy-cm. COMPARISON: head CT dated 01/22/2021 FINDINGS: No acute intracranial hemorrhage, acute infarction or abnormal extra axial fluid collection. Ventricl es are normal and symmetric. No mass/mass effect. The orbits and mastoid air cells are normal. Mild m ucoperiosteal thickening at the bilateral ethmoid sinuses. IMPRESSION: 1. No acute intracranial process. Reviewed, dictated and finalized at location A.
[2021-08-25 13:58] VITALS: BP 108/77; PULSE 117; RESP 18; TEMP 36.8; O2SAT 100
--- NOTE | 2021-08-25 15:45 | ED.HA ---
HPI - Headache General Chief Complaint: Headache Stated Complaint: facial pain Time Seen by Provider: 08/25/21 14:54 Source: patient Mode of arrival: ambulatory Limitations: no limitations History of Present Illness HPI Narrative: 61 y/o female presents to the ER today for problems with Headache and left ear pain. She says that symptoms started about 2 weeks ago but seem to be getting worse and she is getting some pain going into her neck as well. No fever or chills. She has some nausea. No vomiting or diarrhea. She has renal carcinoma with mets to the lungs. She is currently receiving oral and iv chemotherapy. She had chemo on Sunday. She denies any chest pain. No shortness of breath. She has had decreased appetite and is drinking fluids but not as well as normal. Related Data Home Medications Medication Instructions Recorded Confirmed cetirizine 10 mg PO DAILY 02/23/20 05/23/21 sennosides 8.6 mg-docusate sodium 1 tab-cap PO QHS 12/09/20 05/23/21 50 mg tablet Allergy Relief (fexofenadine) 180 mg PO DAILY 05/15/21 05/23/21 Bevespi Aerosphere 9 mcg INHALATION PRN PRN 05/15/21 05/23/21 Calcium Complete 1 tablet PO DAILY 05/15/21 05/23/21 Daily Multi-Vitamin 1 tablet PO DAILY 05/15/21 05/23/21 Inlyta 5 mg PO DAILY 05/15/21 05/23/21 Trelegy Ellipta 200 mcg INHALATION PRN PRN 05/15/21 05/23/21 acetaminophen 650 mg PO Q6-8H PRN 05/15/21 05/23/21 cholecalciferol (vitamin D3) 100 mcg PO DAILY 05/15/21 05/23/21 levothyroxine [Synthroid] 25 mcg PO DAILY 05/15/21 05/23/21 magnesium 50 mg PO DAILY 05/15/21 05/23/21 metoprolol succinate 25 mg PO DAILY 05/15/21 05/23/21 Allergies Allergy/AdvReac Type Severity Reaction Status Date / Time codeine Allergy Severe Hives Verified 08/25/21 14:40 Penicillins Allergy Severe Hives Verified 08/25/21 14:40 Sulfa (Sulfonamide Allergy Severe Hives Verified 08/25/21 14:40 Antibiotics) lactase [From Dairy Aid] Allergy Migraine Verified 08/25/21 14:40 [place] And Derivatives AdvReac Intermediate Migraine Verified 08/25/21 14:40 egg AdvReac Intermediate Migraine Verified 08/25/21 14:40 egg yolk AdvReac Intermediate Migraine Verified 08/25/21 14:40 fish derived AdvReac Intermediate Migraine Verified 08/25/21 14:40 milk AdvReac Intermediate Migraine Verified 08/25/21 14:40 nut - unspecified AdvReac Intermediate Migraine Verified 08/25/21 14:40 Review of Systems Constitutional: Constitutional: Denies chills, Denies fatigue, Denies fever(s) and Denies weakness Eyes: Eyes: Denies change in vision ENT: Reports as per HPI, Reports dysphagia, Denies dizziness, Denies nasal congestion and Denies sore throat Cardiovascular: Cardiovascular: Denies chest pain Respiratory: Respiratory: Denies chest congestion, Denies cough, Denies dyspnea and Denies wheezing Gastrointestinal: Gastrointestinal: Denies abdominal pain, Denies constipation, Denies diarrhea, Denies nausea and Denies vomiting Genitourinary: Genitourinary: Denies dysuria and Denies flank pain Musculoskeletal: Musculoskeletal: Denies back pain Neurologic: Denies vertigo, Denies dizziness, Denies syncope, Reports headache(s), Denies focal weakness and Denies numbness Psychiatric: Psychiatric: Denies anxiety and Denies depression Endocrine: Endocrine: Denies fatigue and Denies polyuria Hematologic/Lymphatic: Hematologic/Lymphatic: Denies easy bleeding and Denies easy bruising Allergic/Immunologic: Allergic/Immunologic: Reports no additional allergic/immunologic complaints PMF Past Medical History Medical History Allergic asthma Hypertension Metastatic renal cell carcinoma to lung Vitamin D deficiency Surgical History Surgical History History of arthroscopic knee surgery History of cholecystectomy History of left nephrectomy (01/2019) Family History Family History (Reviewed 08/25/21 @ 17:45 by Jenn Lynn, APR
[2021-08-25 16:18] LABS: Basophils Percent Auto 0.3 % (0.2-1.2); Eosinophils Absolute Auto 0.5 K/mm3 (0-0.3); Eosinophils Percent Auto 7.2 % (0-4.4); Hematocrit 51.8 % (37.0-47.0); Hemoglobin 16.1 g/dL (12.0-15.0); Immature Granulocyte Absolute 0.03 K/mm3 (0.00-0.031); Immature Granulocyte Percent A 0.4 % (0-0.5); Immature Platelet Fraction Pct 6.4 % (0.9-11.2); Lymphocytes Absolute Auto 1.48 K/mm3 (0.9-3.2); Lymphocytes Percent Auto 22.2 % (18.3-44.2); Mean Corpuscular HGB Conc 31.1 g/dl (32-36); Mean Corpuscular Hemoglobin 25.4 pg (26-34); Mean Corpuscular Volume 81.8 fl (80-100); Mean Platelet Volume 10.8 fl (7.4-10.4); Monocytes Absolute Auto 0.4 K/mm3 (0.1-0.6); Monocytes Percent Auto 5.2 % (2.6-8.5); Neutrophils Absolute Auto 4.3 K/mm3 (1.3-6.7); Neutrophils Percent Auto 64.7 % (45.5-73.1); Platelet Count Result 206 k/mm3 (150-375); Red Blood Count 6.33 M/mm3 (4.2-5.4); Red Cell Distribution Width 18.6 % (11.5-14.5); White Blood Count 6.7 K/mm3 (4.5-10.0)
[2021-08-25 16:26] LABS: Alanine Aminotransferase 28 U/L (4-35); Albumin Level 4.1 g/dL (3.5-5.1); Alkaline Phosphatase 79 U/L (38-126); Anion Gap 8 mmol/L (8-16); Aspartate Amino Transferase 28 U/L (14-36); Bilirubin,Total 1.2 mg/dL (0.2-1.3); Blood Urea Nitrogen 14 mg/dL (7-17); Calcium 8.6 mg/dL (8.4-10.2); Carbon Dioxide 25 mmol/L (22-30); Chloride 101 mmol/L (98-107); Estimated CRCL calculation 32 ml/min; Estimated Glomerular Filt Rate 39; Glucose 132 mg/dL (65-110); Potassium 4.2 mmol/L (3.4-5.0); Sodium 134 mmol/L (137-145)
--- NOTE | 2021-08-25 16:27 | ED.GENADULT ---
HPI - General Adult General Chief complaint: Headache Stated complaint: facial pain Time Seen by Provider: 08/25/21 14:54 Source: patient and family Mode of arrival: ambulatory Limitations: no limitations History of Present Illness HPI narrative: Patient is 61 years old -[place] female presents with pain at the top of the head, left ear and left side of the neck started 3 weeks ago, worse with head movement, nothing make it better, intermittent, was seen by her oncologist recently who referred her to ENT, without specific diagnosis. She denies any fever, chills, nausea, vomiting, shortness of breath or back pain. History of kidney cancer with lung metastasis on chemotherapy. Related Data Home Medications Medication Instructions Recorded Confirmed cetirizine 10 mg PO DAILY 02/23/20 05/23/21 sennosides 8.6 mg-docusate sodium 1 tab-cap PO QHS 12/09/20 05/23/21 50 mg tablet Allergy Relief (fexofenadine) 180 mg PO DAILY 05/15/21 05/23/21 Bevespi Aerosphere 9 mcg INHALATION PRN PRN 05/15/21 05/23/21 Calcium Complete 1 tablet PO DAILY 05/15/21 05/23/21 Daily Multi-Vitamin 1 tablet PO DAILY 05/15/21 05/23/21 Inlyta 5 mg PO DAILY 05/15/21 05/23/21 Trelegy Ellipta 200 mcg INHALATION PRN PRN 05/15/21 05/23/21 acetaminophen 650 mg PO Q6-8H PRN 05/15/21 05/23/21 cholecalciferol (vitamin D3) 100 mcg PO DAILY 05/15/21 05/23/21 levothyroxine [Synthroid] 25 mcg PO DAILY 05/15/21 05/23/21 magnesium 50 mg PO DAILY 05/15/21 05/23/21 metoprolol succinate 25 mg PO DAILY 05/15/21 05/23/21 Allergies Allergy/AdvReac Type Severity Reaction Status Date / Time codeine Allergy Severe Hives Verified 08/25/21 14:40 Penicillins Allergy Severe Hives Verified 08/25/21 14:40 Sulfa (Sulfonamide Allergy Severe Hives Verified 08/25/21 14:40 Antibiotics) lactase [From Dairy Aid] Allergy Migraine Verified 08/25/21 14:40 [place] And Derivatives AdvReac Intermediate Migraine Verified 08/25/21 14:40 egg AdvReac Intermediate Migraine Verified 08/25/21 14:40 egg yolk AdvReac Intermediate Migraine Verified 08/25/21 14:40 fish derived AdvReac Intermediate Migraine Verified 08/25/21 14:40 milk AdvReac Intermediate Migraine Verified 08/25/21 14:40 nut - unspecified AdvReac Intermediate Migraine Verified 08/25/21 14:40 Review of Systems Review of Systems: CONSTITUTIONAL: Denies fever, chills, or sweats. EYES: Denies visual changes, redness, or discharge. ENT: Denies rhinorrhea, congestion, sore throat, or otalgia. CARDIOVASCULAR: Denies chest pain, palpitations, or edema. RESPIRATORY: Denies cough or dyspnea. GASTROINTESTINAL: Denies abdominal pain, nausea, vomiting, or diarrhea. GENITOURINARY: Denies dysuria or hematuria. SKIN: Denies rash or itching. MUSCULOSKELETAL: Denies back pain, joint pain, or myalgia. NEUROLOGIC: Denies headache, numbness, or weakness. PSYCHIATRIC: Denies anxiety or depression. [facility] Past Medical History Medical History Allergic asthma Hypertension Metastatic renal cell carcinoma to lung Vitamin D deficiency Surgical History Surgical History History of arthroscopic knee surgery History of cholecystectomy History of left nephrectomy (01/2019) Family History Family History Father Family history of blood dyscrasia, Onset Age: 68 Family history of heart disease in male family member before age 55 Patient's father is Asthma Mother Family history of elevated blood lipids Family history of diabetes mellitus in first degree relative Hypertension Diabetes mellitus Sibling Asthma Diabetes mellitus Family history of sickle cell trait Multiple sclerosis Lupus Hypertension Grandparent Family history of malignant neoplasm of breast Family history of blood dyscrasia Social History Social History Social
[2021-08-25] MEDS: SODIUM CHLORIDE 0.9% IV 1,000 ML 999 ML IV CONT (16:40)
[2021-08-25] MEDS: ONDANSETRON INJ 4 MG/2 ML VIAL IV PUSH (16:41)
[2021-08-25] MEDS: fentaNYL CITRATE INJ (*CRX) 100 MCG/2 ML VIAL 50 MCG IV PUSH (16:41)
[2021-08-25 18:10] VITALS: BP 114/72; PULSE 88; RESP 20; O2SAT 97
== END 2021-08-25 18:20 | disposition home or self-care (01) ==
PROVIDERS: Nurse Practitioner Family; Emergency Provider Emergency Medicine; PCP Family Medicine
DX: R51.9 Headache, unspecified (principal); M54.2 Cervicalgia; E86.0 Dehydration; H92.02 Otalgia, left ear; R91.8 Other nonspecific abnormal finding of lung field; I10 Essential (primary) hypertension; E55.9 Vitamin D deficiency, unspecified; Z90.5 Acquired absence of kidney; C64.2 Malignant neoplasm of left kidney, except renal pelvis; C78.02 Secondary malignant neoplasm of left lung; C78.01 Secondary malignant neoplasm of right lung; Z79.899 Other long term (current) drug therapy
CPT/HCPCS: 36415; 70450; 70491; 71260; 80053; 85025; 85055; 96361; 96374; 96375; 99284; J2405; J3010; J7030; Q9967

== ENCOUNTER 2024-07-12 02:58 | Observation (INO) | payer MEDICARE, SELFPAY ==
[2024-07-12] VITALS (8 sets, daily range): BP systolic 100–137; BP diastolic 64–84; PULSE 62–112; RESP 16–18; TEMP 36.4–36.8; O2SAT 97–100; BMI 25.1
--- NOTE | ~2024-07-12 | XR_ITS ---
EXAMINATION: XR chest 2V DATE: 07/12/2024 12:02 INDICATION: Vomiting and diarrhea. TECHNIQUE: Frontal and lateral views of the chest were obtained. COMPARISON: Chest 2 views 01/28/2021, chest CT 08/25/2021 FINDINGS: Again seen are a few scattered pulmonary nodules bilaterally. There is no pneumonia, pleura l effusion, or pneumothorax. The heart size is normal. There are surgical clips in the abdomen. IMPRESSION: 1. Stable pulmonary nodules, consistent with metastatic renal cell carcinoma. Reviewed, dictated and finalized at location A. CONSULTANT
--- NOTE | ~2024-07-12 | CT_ITS ---
EXAMINATION: CT abdomen pelvis wo con DATE: 07/12/2024 05:03 INDICATION: Abdominal pain. TECHNIQUE: Computed tomography (CT) of the abdomen and pelvis was performed without intravenous contr ast. Automated exposure control and iterative reconstruction technique were employed. The dose-length product was 377.43 mGy-cm. COMPARISON: CT abdomen and pelvis 05/15/2021 FINDINGS: The visualized portions of the lung bases demonstrate mild bronchiectasis and mild atelecta sis. No pleural effusion. The heart size is normal. No pericardial effusion. There is a small sliding hiatal hernia. The liver and spleen are normal. There are changes of cholecystectomy. The pancreas, right adrenal gland, and right kidney are normal. There are changes of left nephrectomy and adrenalec blas. There are fibroids in the uterus. There are no dilated loops of bowel. There is liquid stool in the colon suggesting diarrhea. The appendix is normal. There are no pathologically enlarged lymph no treva. There is no free intraperitoneal fluid. There is mild lumbar spondylosis. IMPRESSION: 1. Small sliding hiatal hernia. Reviewed, dictated and finalized at location A. S REPRESENTATIVE EDUCATION COURSES
--- OUTSIDE RECORDS SUMMARY | 2024-07-12 03:00 | XMS_ITS | Encounter Summary ---
Author Organization [facility] Healthcare Address [address] [place] [address] Care Team Providers Care Government Relations Analyst Name Role Phone Unavailable Primary Care Provider Unavailabl e Reason for Visit * Diagnostic Imaging (Routine) - Closed Specialty Diagnoses / Procedures Referred By Contac t Referred To Contact Procedures Breast Imaging Screening Outside Reference Referral, Self Referral ID Status Reason Start Date Expiration Date Visits Re quested Visits Authorized [id number] Closed 10/05/2022 11/04/2023 1 1 Encounter Details Date Type Department Care Team (Late st Contact Info) Description 01/27/2014 Hospital Encounter [facility] [address] [place] [id number] Social History Tobacco Use Types Packs/Day Years Used Date Smoking Tobacco: Never Passive Smoke Exposure: Past Smokeless Tobacco: Never Alcohol Use Standard Drinks/Week Comments Never 0 (1 standard drink = 0.6 oz pur e alcohol) [facility] Utilities Answer Date Recorded In the past 12 months has [employer], gas, oil, or water [employer] threatened to shut off services in your home? Patient unable to answer 09/04/2023 Social Connection and Isolation Panel [NHANES] A nswer Date Recorded In a typical week, how many times do you talk on the phone with family, friends, or neighbors? Patient unable to answer 09/04/2023 How often do you get togethe r with friends or relatives? Patient unable to answer 09/04/2023 How often do you attend [facility] or temple services? Patient unable to answer 09/04/2023 Do you belong to any clubs o r organizations such as protestant groups, unions, fraternal or athletic groups, or [...] more points, staff should administer the PHQ-9) 1 03/19/2024 Hunger Vital Sign Answer Date Recorded Within the past 12 months, y ou worried that your food would run out before you got the money to buy more. Patient unable to answer 09/04/2023 Within the past 12 months, t he food you bought just didn't last and you didn't have money to get more. Patient unable to answer 09/04/2023 PRAPARE - Transportation Answer Date Re corded [...] place to sleep or slept in a custodial (including now)? Patient unable to answer 09/04/2023 PHQ-9 Answer Date Recorded PHQ-9 Total Score 20 07/18/2023 Personal Safety Answer Date Recorded Have you ever been in or are you currently in a harmful physical or emotional relationship or is someone making you feel afraid or unsafe? Denies 09/01/2023 Comments No Sex and Gender Information Value Date Recorded Sex Assigned at Not on file Legal Sex Female 8:31 AM DIRECTOR OF SEARCH ENGINE OPTIMIZATION Gender Identity Female 12/08/2020 1:45 PM CDT Sexual Orientation Straight 01/22/2019 10 :49 AM CDT documented as of this encounter Functional Status * Audit-C Score Answer Date of Assessment Author 0 01/21/2024 9:51 AM CHRISTIT Nikole Vega RN * Question Answer Date [...] Outside Reference (01/27/2014 12:00 AM CDT) Impressions RAD_MAMMO[facility] - 10/05/2022 10:41 AM CDT These images are for Reference purposes only and have not been reviewed by [facility] Radiology. There will be no report generated by a [facility] Radiologist. Narrative RAD_MAMMO[facility] - 10/05/2022 10:41 [...] C. difficile suspected 07/05/2023 07/05/2023 10:37 PM DIRECTOR OF SEARCH ENGINE OPTIMIZATION COVID: Suspected 08/22/2023 08/22/2023 08/22/2023 5:03 PM CDT C. difficile suspected 08/22/2023 08/22/202308/22 3:06 AM CDT C. difficile suspected 09/01/2023 09/02/202309/04 3:05 AM CDT Norovirus suspected 09/01/2023 09/02/2023 09/05/19 3:05 AM CDT documented as of this encounter
--- OUTSIDE RECORDS SUMMARY | 2024-07-12 03:00 | XMS_ITS | Encounter Summary ---
Author Organization [facility] Healthcare Address [address] [place] [address] Care Team Providers Care Fire Prevention Bureau Captain Name Role Phone Lorene Prince MD Unavailable [phone] Vinod Bird MD Unavailable Akhil Russo MD Primary Care Provider [phone] Mili Mcleod NP Unavailable Guillermina Stokes MD Unavailable [phone] Encounter Details Date Type Department Care Team (Late st Contact Info) Description 12/01/2021 Telephone [facility] [address] [facility] [address] [place] [address] Akhil Russo MD [address] [facility] [address] [place] [address] Social History Tobacco Use Types Packs/Day Years Used Date Smoking Tobacco: Never Smokeless Tobacco: Never Alcohol Use Standard Drinks/Week Comments Never 0 (1 standard drink = 0.6 oz pur e alcohol) AUDIT-C Answer Date Recorded Q1: How often do you have a drink containing alcohol? Never 11/30/2021 Q2: How many drinks containi ng alcohol do you have on a typical day when you are drinking? Patient does not drink Q3: How often do you have si x or more drinks on one occasion? Never 11/30/2021 PHQ-2 Answer Date Recorded PHQ-2 Total Score (If total score is 3 or more points, staff should administer the PHQ-9) 0 11/30/2021 Comments No Sex and Gender Information Value Date Recorded Sex Assigned at Not on file Legal Sex Female 8:31 AM STITCHER AROUND Gender Identity Female 12/08/2020 1:45 PM CDT Sexual Orientation Straight 01/22/2019 10 :49 AM CDT documented as of this encounter Plan of Treatment Not on file documented as of this encounter Visit Diagnoses Not on filedocumented in this encounter Additional Health Concerns Infection Onset Date Last Indicated Resolved Time COVID: Suspected 10/09/2022 10/09/2022 10/09/2022 2:21 PM CDT Diarrhea 07/01/2023 07/01/2023 07/15/2023 3:05 AM CDT C. difficile suspected 07/05/2023 07/05/2023 10:37 PM STITCHER AROUND COVID: Suspected 08/22/2023 08/22/2023 08/22/2023 5:03 PM CDT C. difficile suspected 08/22/2023 08/22/202308/22 3:06 AM CDT C. difficile suspected 09/01/2023 09/02/202309/04 3:05 AM CDT Norovirus suspected 09/01/2023 09/02/2023 09/05/19 3:05 AM CDT documented as of this encounter Care Teams Fire Prevention Bureau Captain Relationship Specialty Start Date End Date Akhil Russo MD [address] [place] [address] PCP - General Family Medicine 11/29/21 Lorene Prince MD Medical Oncologist/Hematologis t Medical Oncology 01/31/21 Vinod Bird MD Consulting Physician Cardiovascular Disease 03/23/21 Mili Mcleod NP [address] [place] [address] Nurse Practitioner Cardiovascular Disease 07/18/22 Guillermina Stokes MD [address] [address] Referring Physician Endocrinology Diabetes & Metabolism 08/20/23 documented as of this encounter
--- OUTSIDE RECORDS SUMMARY | 2024-07-12 03:00 | XMS_ITS ---
Author Organization [facility] Address [address] [place] [address] Care Team Providers Care Veneer Jointer Returner Name Role Phone Lorene Prince MD Unavailable [phone] Akhil Russo MD Primary Care Provider Mili Mcleod NP Unavailable Guillermina Stokes MD Unavailable [phone] Active Problems Problem Noted Date Diagnosed Date Pain and swelling of lower extremity, left 02/10 Persistent proteinuria 11/12/2023 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 10/23/2023 Mixed hyperlipidemia 10/23/2023 Assessment & Plan (02/20/2024 9:04 PM CDT): Managed by her PCP and recent levels within goal Stage 3a chronic kidney disease 10/23/2023 Anemia 09/03/2023 Assessment & Plan (09/03/2023 3:42 PM CDT): Hgb basline 13-14s, hgb downtrending to 10.7. no notable bleeding. Likely dilutional. Monitor Diarrhea 09/01/2023 Assessment & Plan (09/13/2023 4:29 PM CDT): Has resolved. Patient has not needed anti-diarrheal medications since discharge. Assessment & Plan (09/03/2023 3:37 PM CDT): Presents with 1 month of frequent progressive vomiting and diarrhea. PO exacerbates diarrhea. Hx of GERD, with nausea and epigastric pain after meals. CT AP showing liquid stool throughout the colon, which may reflect mild colitis. -f/up stool studies. CMV sent -cefe/flagyl 08/31-. Less likely bacterial infection given subacute presentation, more likely side effect of lenvatimib and everolimus. Will stop abx 09/02 -Tolerated CLD. Advance to regular 09/02 -started pantoprazole 40 mg daily for GERD symptoms -GI following - scope if sx persistent Pt hasn't had any BM or vomiting while here. Pre-diabetes 02/05/2023 Overview (02/07/2023): No longer on metformin Assessment & Plan (02/20/2024 9:04 PM CDT): Doing well but needs follow up A1c. Assessment & Plan (08/17/2023 2:25 PM CDT): Following a good diet. Not currently on metformin. Needs f/u labs. Assessment & Plan (02/07/2023 3:01 PM CDT): Following a good diet. Not currently on metformin. Needs f/u labs. Dehydration 04/05/2022 Assessment & Plan (09/13/2023 4:28 PM CDT): Diarrhea has seemed to resolve. Assessment & Plan (04/05/2022 12:[address] [employer]): - Pt c/o dehydration and lightheadedness on exam - CTH was unremarkable for any acute intracranial abnormalities. No orthostatis noted on exam - c/w LR @ 75 ml/hr Bacteriuria 04/05/2022 Assessment & Plan (04/05/2022 12:[address] L[employer]): - UA was + for LE and trace Bacteria, given immunocompromised status, will start on Cefepime IV 2g q12h pending cultures - Taper coverage based on c&s Headache 04/05/2022 Assessment & Plan (04/05/2022 12:[address] L[facility]): - Pt c/o intermittent headaches and lightheadedness on exam. Given hx of mets CTH was obtained which was unremarkable for any acute intracranial abnormalities. Seasonal allergies 04/05/2022 Assessment & Plan (04/05/2022 12:[address] LIGHT): - c/w Flonase nasal spray MARAVILLA (dyspnea on exertion) 04/05/2022 Assessment & Plan (04/05/2022 12:[address] LIGHT): - Pt c/o dyspnea on exertion , can likely be related to metastatic disease progression - EKG was unremarkable on admission while Trop and BNP were also WNL - TTE donw previously in 12/2020 was remarkable for LVEf of 54% with limited study - Plan to repeat TTE Diarrhea in adult patient 04/04/2022 Assessment & Plan (04/05/2022 12:[address] [employer]): - Pt presented with worsening NB , watery diarrhea, which has been on going since 02/2022 but has significantly increased in frequency over the past week. The patient also endorses 2 episode of NBNB emesis on 04/03 followed by episodes of lightheadedness - Stool testing was negative for C.Diff and Norovirus, rest of the stool studies remain pending - Diarrhea seems less likely to be of infectious etiology but can be attributed to the use of TKI and Immunotherapy . - If all studies remain negative, then work up for malabsorption can also be considered other atkinson - Will defer starting Metronidazole or Cipro for infectious diarrhea for now . - CT A/P was unremarkable for any infectious foci - c/w CLD and advance based on symptoms - c/w IVF for active hydration. - c/w Lomotil, Bentyl and Imodium for symptomatic relief Chronic diffuse otitis externa of left ear 02/10 Chronic sinusitis 02/10/2022 Milk protein allergy 11/30/2021 Encounter for medical examination to establish c are 11/30/2021 Assessment & Plan (03/19/2024 10:[address] [employer]): A(n) yearly Medicare Annual Wellness Visit has been performed today. Jailyn Condon is not up to date on screening tests. She is in need of Cervical cancer screening. She is not up to date on needed preventative vaccinations; She is in need of RSV vaccination . We discussed healthy lifestyle habits, educational material has been given. Medications reviewed, changes documented as per the medical record and discussed with patient along with risks vs benefits. Specific topics reviewed: drugs, ETOH, and tobacco, importance of regular dental care, importance of regular exercise, importance of varied diet, limit TV, media violence, minimize junk food, and seat belts. Return in 6 months Assessment & Plan (11/30/2021 2:23 PM CDT): A(n) initial well visit to establish care has been performed today. Jailyn Condon is not up to date on screening tests. She is in need of Breast cancer screening and Colon cancer screening. She is not up to date on needed preventative vaccinations; She is in need of Tdap/Td, Pneumonia (Prevnar-13 or Pneumovax-23) and Zoster. Chest pain 09/16/2021 Assessment & Plan (09/16/2021 5:01 PM CDT): Short episode after exertion overnight on 09/16. Abated without intervention, no events on telemetry and EKG unchanged. Given history of syncope and intermittent CP, likely would benefit from outpatient consult with cardiology and stress test. - Admission cardiac enzymes wnl. ProBNP wnl. - No events on tele, EKG unchanged - F/u as outpatient History of pulmonary embolism 09/15/2021 Assessment & Plan (09/15/2021 6:46 AM CDT): Patient was found to have an incidental pulmonary embolism likely present since 04/2021. Most recent 07/04 scan showed improvement. Was previously on Xarelto however anticoagulation has been held due to recent hematochezia. - CTM Syncope 09/14/2021 Syncope, unspecified syncope type 09/14/2021 Assessment & Plan (09/16/2021 5:53 PM CDT): Likely orthostatic in nature, suspect dehydration. SBP down 20pts on orthostatic vitals from sitting to standing. 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 Approximately 3 years ago she had a tube placed d/t recurrent infectious symptoms/tympanic dysfunction and has not recovered her hearing. Physical examination notable for some fluid in external ear canal; unclear if coming from middle ear. Physical examination also notable for conductive hearing loss; concerning for some fluid build up in middle ear. - Informally touched based with ENT. Will prescribe a two week course of ofloxacin ear gtts 4 drops in L ear BID for two weeks to cover for any possible infection (sent to local pharmacy) - Will send ambulatory referral to ENT for outpatient follow up Severe protein-calorie malnutrition 07/19/2021 Assessment & Plan (07/22/2021 2:34 PM CDT): - RD consult Hypothyroidism, unspecified 07/18/2021 Overview (02/07/2023): No history of goiter Assessment & Plan (02/20/2024 9:03 PM CDT): Clinically doing well and recent TSH well within goal. Assessment & Plan (09/01/2023 10:59 PM CDT): Continue home synthroid Assessment & Plan (08/17/2023 2:25 PM CDT): Symptomatically stable but recent dose increase - needs f/u labs. Assessment & Plan (02/07/2023 3:00 PM CDT): Symptomatically stable and recent labs OK Assessment & Plan (07/08/2022 12:[address] LIGHT): TSH 0.17 uIU/ml, normal T4 Thyroid dosing has been adjusted, awaiting repeat Assessment & Plan (04/05/2022 12:[address] [employer]): - c/w Synthroid 100 mcg po qam Assessment & Plan (09/15/2021 6:41 AM CDT): Followed by outpatient endocrinology - continue Synthroid to 100 mcg once daily Assessment & Plan (07/19/2021 1:34 PM CDT): Home regimen recently increased to 75 mcg levothyroxine given persistently elevated TSH. Most recent TSH 42.60 on day of admission -Continue 75 mcg dose daily -Will adjust dose based on TFTs outpatient Assessment & Plan (07/18/2021 10:58 PM CDT): Home regimen recently increased to 75 mcg levothyroxine given persistently elevated TSH -Continue 75 mcg dose Anxiety 07/18/2021 Assessment & Plan (09/01/2023 11:00 PM CDT): Continue home zoloft Assessment & Plan (04/05/2022 12:[address] [employer]): - c/w Sertraline 25 mg po every day Assessment & Plan (09/15/2021 6:46 AM CDT): Mood stable. Denied any SI/HI or hallucinations. - on sertraline 25 mg daily and xanax prn Assessment & Plan (07/19/2021 1:34 PM CDT): Denied SI/HI or any hallucinations. Stable mood. - Continue home Sertraline 25 mg BID and Alprazolam 0.5 mg qhs PRN Assessment & Plan (07/18/2021 11:00 PM CDT): Continue home Sertraline 25 mg BID and Alprazolam 0.5 mg qhs PRN Neck pain 07/18/2021 Assessment & Plan (09/15/2021 6:55 AM CDT): - Continue with home flexeril Assessment & Plan (07/22/2021 2:35 PM CDT): Presenting with 3 weeks of constant and slightly progressive neck pain. Likely MSK in nature given tender to palpation of her sternocleidomastoid muscles bilaterally and worse with neck movement. No associated fever, chills, headaches, photo or phonophobia concerning for meningitis -Total spine MRI was ordered in [facility] and completed --> Posterior T12 Vertebral lesion stable from prior CTs since April 2019 with features suggestive of osseous hemangioma; no abnormal spinal cord signal with no evidence of leptomeningeal diease; no acute findings that could explain neck pain -Increase scheduled cyclobenzaprine to 10 mg TID for muscle spasms -Additional pain control: Tylenol 1 g TID, Oxycodone 5 mg q6 hr PRN for 2nd line, and Hydromorphone 0.5 mg q4 hr PRN for 3rd line -PT/OT evaluation --> Home Health PT Assessment & Plan (07/18/2021 10:52 PM CDT): Presenting with 3 weeks of constant and slightly progressive neck pain. Likely MSK in nature given tender to palpation of her sternocleidomastoid muscles bilaterally and worse with neck movement. No associated fever, chills, headaches, photo or phonophobia concerning for meningitis -Total spine MRI was ordered in [facility] and completed, read pending -Will start scheduled cyclobenzaprine 5 mg TID for muscle spasms -Additional pain control with Tylenol 1 g q6 hr PRN for first line, Oxycodone 5 mg q6 hr PRN for 2nd line, and Hydromorphone 0.2 mg q4 hr PRN for 3rd line -PT/OT evaluation -Also with chronic tinnitus and ear fullness - she requested an ENT consult but I said this would be deferred to the day team and is likely more of an outpatient work-up/referral Nausea vomiting and diarrhea 07/18/2021 Assessment & Plan (07/23/2021 11:35 AM CDT): Persistent nausea, vomiting and bloody diarrhea for the last few weeks in the setting of taking Axitinib study drug. She has been off Nivo since Jun. Improved since admission with prn anti-emetics and fluid hydration though patient has only been on clear liquid diet -Tolerated regular diet for dinner last night and breakfast this morning. -Nutrition consult Assessment & Plan (07/18/2021 11:01 PM CDT): Persistent nausea, vomiting and bloody diarrhea for the last few weeks in the setting of taking Axitinib study drug. She has been off Nivo since Jun. No emesis since yesterday and is inquiring about a diet -Plan for IV hydration with NS 100 mL/hr maintenance fluids -Clear liquid diet and can ADAT -PRN anti-emetics -Nutrition consult Hematochezia 07/18/2021 Assessment & Plan (07/23/2021 11:35 AM CDT): Reports 2 weeks of intermittent bright red blood per rectum and would often fill the toilet bowl with blood, last bloody BM the day prior to admit. No melena or dark, tarry stools -Patient states she has had colonoscopy in the past with a history notable for hemorrhoids however, states this is not her typical hemorrhoidal bleeding. -Home Xarelto has been on hold since 07/04 due to hematochezia however continues to have intermittent episodes -Stable Hgb is reassuring -Status post colonoscopy 07/20; notable for diverticulosis in the sigmoid colon. However, procedure was technically difficult and was unable to directly evaluate cecum ---> CT Colonography demonstrated no concerning findings - Hematochezia likely related to sigmoid diverticulosis -Trend CBC and transfuse Hgb <7 Assessment & Plan (07/18/2021 11:00 PM CDT): Reports 2 weeks of intermittent bright red blood per rectum and would often fill the toilet bowl with blood, last bloody BM the day prior to admit. No melena or dark, tarry stools -Likely hemorrhoidal in nature and possibly exacerbated by Xarelto -Home Xarelto has been on hold since 07/04 and continues to have intermittent episodes -Hgb is reassuring at 14.1 though -Placed on clear liquid diet for now and can consider GI consult in the morning for C-scope -Trend CBC and transfuse Hgb <7 Diarrhea 02/18/2021 Assessment & Plan (02/18/2021 7:39 PM CDT): Patient has had 2 days of watery stools, 3 episodes/day, non-bloody. Also with nausea, no vomiting, no abdominal pain, Poor PO intake. Abdominal exam is benign. Possible side effect of chemotherapy. - IVFs overnight - Anti-emetics prn - C diff if having more diarrhea here - Imodium if C diff negative - Consider CT A/P Asthma 02/18/2021 Assessment & Plan (04/05/2022 12:[address] [employer]): - Pt c/o worsening SOB which can likely be associated with intermittent asthma - Currently on Trellegy ellipta and Proventil inhaler Assessment & Plan (09/15/2021 6:43 AM CDT): - continue home inhalers Assessment & Plan (07/19/2021 1:33 PM CDT): Stable on room air, no wheezing -Home regimen of PRN albuterol, Trelegy inhaler, glycopyrrolate-formoterol inhaler (Bevespi Aerosphere) and Ipratropioum -Given Trelegy and Bevespi are both in the same class will hold the Bevespi and continue Trelegy inpatient - Will likely discharge patient on just Trelegy -PRN abulterol Assessment & Plan (07/18/2021 10:56 PM CDT): Stable on room air, no wheezing -Home regimen of PRN albuterol, Trelegy inhaler, glycopyrrolate-formoterol inhaler (Bevespi Aerosphere) and Ipratropioum -Given Trelegy and Bevespi are both in the same class will hold the Bevespi and continue Trelegy inpatient -PRN abulterol Assessment & Plan (02/18/2021 7:41 PM CDT): History of asthma with multiple exacerbations. Currently endorses some shortness of breath and has had wheezing recently. On exam she has a few wheezes that clear with cough. Less likely acute exacerbation, though she reports that she did take a nebulizer treatment prior to admission. - Duonebs q4h prn - Continue home inhalers - Steroids if persistent wheezing, worsening shortness of breath Fever 02/18/2021 Assessment & Plan (02/18/2021 7:54 PM CDT): Patient having low-grade fevers at home with Tmax 100.3. She has a constellation of symptoms that along with fever could represent an infection. Abdominal infection is possible with diarrhea and nausea, though abdominal exam is benign. She has a dry cough, sore throat, ear pain could represent URI, again exam is fairly unremarkable. Possible fevers are chemo-related? - COVID/influenza pending - CXR pending - UA pending - Blood cx pending - Consider CT A/P - Start cefepime/vancomycin, low threshold to de-escalate pending work-up Hyponatremia 02/18/2021 Assessment & Plan (02/18/2021 7:56 PM CDT): Mild hyponatremia, Na 132, likely 2/2 hypovolemia. - CTM Primary hypertension 02/18/2021 Assessment & Plan (09/13/2023 4:28 PM CDT): BP 110/68 in office with no BP medications. Will continue to hold her Amlodipine, Metoprolol, and Spironolactone. Patient to monitor home BP's and send in log in 1 week to see if we need to restart. Assessment & Plan (09/02/2023 12:06 PM CDT): - holding home amlodipine, metoprolol, aldactone iso dehydration Assessment & Plan (07/08/2022 12:[address] LIGHT): Renal function decreased, GFR at 42 Creatinine 1.39 Advised on hydration Assessment & Plan (04/05/2022 12:[address] [employer]): - c/w Toprol XL 50 mg po qam - c/w Amlodipine 10 mg po qam Assessment & Plan (09/15/2021 6:44 AM CDT): - continue amlodipine 10 mg once daily and metoprolol XL 25 mg once daily Assessment & Plan (07/19/2021 1:33 PM CDT): Blood pressure stable. - Continue home amlodipine 10 mg qday and Meto XL 25 mg qday Assessment & Plan (07/18/2021 10:58 PM CDT): Continue home amlodipine 10 mg qday and Meto XL 25 mg qday Assessment & Plan (02/18/2021 7:57 PM CDT): - Hold home amlodipine and losartan for now given soft blood pressures, resume as needed Lung nodules 12/08/2020 Malignant neoplasm of left kidney (CMS/HCC) 01/06 Assessment & Plan (09/03/2023 3:38 PM CDT): mRCC, s/p multiple lines of chemotherapy. Started everolimus/lenvatinib 06/2023. Took last dose 08/31. Stable disease on last imaging -holding lenvatinib/everolimus for now - could be worsening diarrhea -med onc consulted -CT AP this admission showing no mets or recurrence. Assessment & Plan (04/05/2022 12:[address] [employer]): - Pt was diagnosed with left renal clear cell Ca in 2018 followed by left radical Nephrectomy - She was diagnosed with lung mets in 2020 which was confirmed on biopsy . CT A/P on admission today was again remarkable for b/l lung nodules that are highly suspicious for malignant infiltration. - Currently enrolled in NKTR trial and is on Axitinib 5 mg po BID, Nivolumab 360 mg IV - Plan for cycle 21 of NKTR in 04/2022 per primary Onc. TEMPUS to be sent per primary based on most recent clinic visit - CT A/P done on admission was unremarkable for metastatic disease. - f/u med/Onc recs Assessment & Plan (09/15/2021 6:41 AM CDT): History of metastatic clear cell RCC who had been on clinical trial with nivolumab 360 mg IV and axitinib 5 mg PO BID however the NKTR/nivolumab development program is in the process of being discontinued, with trial to be expected to close in the next upcoming months. - Patient will likely be transitioned to standard of care TKI/nivolumab once the trial discontinued. - Followed by Dr. Prince in outpatient medical oncology clinic. - Holding axtinib while inpatient - Medical oncology consulted; appreciate recommendations Assessment & Plan (07/21/2021 2:15 PM CDT): Follows with Dr. Prince and is currently on Axitinib BID, which has been held for now -Medical Oncology following; appreciate recommendations --> Will hold axitinib for now. Patient to follow up with Dr. Prince in the cancer clinic. Assessment & Plan (07/18/2021 10:57 PM CDT): Follows with Dr. Prince and is currently on Axitinib BID, which has been held for now -Onc consult in the AM and they can order axitinib if they wish to continue Assessment & Plan (02/18/2021 8:02 PM CDT): She underwent L radical nephrectomy 01/2019, pathology c/w clear cell renal carcinoma. Developed pulmonary nodules on CT in 11/2020, underwent left lung biopsy in 12/2020 that was c/w metastatic renal cell carcinoma. Started NKTR trial C1D1 01/17/2021. C2 was held for asthma exacerbation, started C2D1 02/14/2021. Follows with Dr. Prince. - Medical oncology consult Current Treatment and Therapy Plans HYDRATION THERAPY PLAN* Plan Start Date:04/27/2021 Plan Provider:Lorene Prince MD Linked Problems Malignant neoplasm of left k [place] (HCC) Treatment Medications No medications scheduled. Lenvatinib / Everolimus PO Daily 28 Day Cycle - * Plan Start Date:06/14/2023 Plan Provider:Lorene Prince MD Linked Problems Malignant neoplasm of left k idney (HCC) Treatment Medications Current Day (Day 1 , Cycle 13 - Planned for 06/16/2024) Next Day (Day 1, Cycle 14 - Planned for 07/28/2024) everolimus (AFINITOR)lenvatinib (LENVIMA) everolimus (AFINITOR) 5 mg tablet everolimus (AFINITOR) 5 mg tablet Zofran* Plan Start Date:07/18/2021 Plan Provider:Lorene Prince MD Linked Problems Malignant neoplasm of left k ray[place] (HCC) Treatment Medications No medications scheduled. Past Treatment and Therapy Plans Oncology Chemotherapy Treatment Plan Name Start Date Discontinue Date Treatment Medications Discontinue Reason Plan Provider Cycles cabozantinib (Cabometyx) PO Started on 08/04/22) 3 05/15/2023 No medications scheduled. Progression Lorene Prince MD 8 of 9 cycles started Nivolumab 480 mg 28 Day Cycles 1 01/17/2021 nivolumab (OPDIVO) Progressive Disease Lorene Prince MD Treatment not started Oncology Treatment (2) Plan Name Start Date Discontinue Date Treatment Medications Discontinue Reason Plan Provider Cycles [facility] [id number] Part 1 Arm A Nivolumab + Bempegaldesleukin + Axitinib 01/18/20 21 07/24/[address] [facility] (/ [id number]) Nivolumab/BMS -[id number] IVPB [facility] (/ [id number]) NKTR-214 (BEMPEGALDESL EUKIN) IVPB in 50 mL () [facility] axitinib (/ [id number]) Progressive Disease Lorene Prince MD 24 of 33 cycles started Lifetime Dose Tracking * Chemical Lifetime Dose Automatic Entry Manual Entr y Fluoro Time 1 minutes 1 minutes 0 minutes Air kerma at the reference point (Ka,r) 808 mGy 8 08 mGy 0 mGy DLP 23,538 mGycm 23,538 mGycm 0 mGycm Resolved Problems Problem Noted Date Diagnosed Date Resolved Date Hypovolemia 09/02/2023 09/03/2023 Assessment & Plan (09/02/2023 12:11 PM CDT): Orthostatic vitals + on arrival. Frequent diarrhea -strict I/O. mIVF. Keep even Pulmonary emboli 04/05/2022 07/18/2023 Assessment & Plan (04/05/2022 12:[address] [employer]): - Pt has documented hx of PE, has been off AC for over 3 months Total perforation of left tympanic membrane 09/12/2021 02/10/2022 Overview (09/12/2021): Added automatically from request for surgery [id number] Left renal mass 01/03/2019 01/24/2019 Overview (01/03/2019): Added automatically from request for surgery [id number]
--- OUTSIDE RECORDS SUMMARY | 2024-07-12 03:00 | XMS_ITS | Clinical Summary ---
Author Organization [facility] Address [address] [place] [address] Care Team Providers Care Melangeur Operator Name Role Phone Lorene Prince MD Unavailable [phone] Akhil Russo MD Primary Care Provider [phone] Mili Mcleod NP Unavailable Guillermina Stokes MD Unavailable [phone] Allergies Active Allergy Reactions Criticality Noted Date Comments Bailey And Derivatives Diarrhea Low 01/09/2019 Codeine Hives Medium 01/07/2019 Dairy - All Forms And Ingredients Diarrhea,Headache Low 01/09/2019 Egg Headache Low 01/12/2021 Fish Containing Products Hives,Headache Medium 01/09/2019 Nuts Headache Low 08/01/2021 Other Other (See comments),Nausea only Low 01/21/2024 MONO SODIUM GLUTAMATE Migraine Penicillins Hives Medium 01/07/2019 Sulfa (Sulfonamide Antibiotics) Hives Medium 01/07/2019 Wheat Headache Low 01/21/2024 Medications albuterol HFA (PROVENTIL HFA,VENTOLIN HFA,PROAIR HFA) 90 mcg/actuation inhaler Inhale 2 puffs every 4 (four) hours as needed 01/21/20 21 Active fexofenadine (CHELA) 180 mg tablet Take 1 tablet (180 mg total) by mouth every morning Using xzyal now Active calcium carbonate/vitamin D3 (CALCIUM 500 + D ORAL) Take 1 tablet by mouth daily with breakfast Active urea (CARMOL) 20 % cream Apply topically as needed for dry skin 85 g 2 06/20/19 22 Active triamcinolone (KENALOG) 0.1 % cream Apply topically 2 (two) times a day To affected areas 45 g 1 07/01/19 22 Active loperamide (IMODIUM) 2 mg capsuleIndication s:Malignant neoplasm of left kidney (HCC),Diarrhea, unspecified type Take 4 (mg) (2 caps) by mouth after the first loose bowel movement, then 2 mg (1 cap) by mouth after each loose bowel movement after the first dose has been taken. DO NOT EXCEED 16 mg (8 capsules) a day 120 capsule 1 04/08/20 22 Active acetaminophen 500 mg capsule Take by mouth as needed for mild pain (pain scale 1-4) Active diphenoxylate-atr opine (LOMOTIL) 2.5-0.025 mg per tablet Take 1 tablet by mouth 4 (four) times a day as needed for diarrhea 30 tablet 12/19/19 23 Active peg 400-hypromellose- glycerin (ARTIFICAL TEARS) 1-0.2-0.2 % ophthalmic solution Administer into both eyes as needed for dry eyes Active mometasone (ELOCON) 0.1 % creamIndications: Chronic diffuse otitis externa of left ear Apply topically daily Use in both ears for itching 45 g 1 07/27/19 24 Active levothyroxine (SYNTHROID) 88 mcg tablet Take 1 tablet (88 mcg total) by mouth daily 30 tablet 11 08/14/19 24 2024 Active cyclobenzaprine (FLEXERIL) 7.5 mg tablet Take 1 tablet (7.5 mg total) by mouth 3 (three) times a day as needed for muscle spasms for muscle spasms 30 tablet 09/11/19 24 Active lenvatinib (LENVIMA) 8 mg/day (4 mg x 2) capsuleIndication s:renal cell carcinoma Take 2 capsules (8 mg) by mouth daily Indications: renal cell carcinoma. Take with or without food at the same time each day. 60 capsule 11 09/17/19 24 2024 Active everolimus (AFINITOR) 5 mg tabletIndications :metastatic renal cell carcinoma Take 1 tablet (5 mg total) by mouth daily Swallow whole with a glass of water. 28 tablet 11 09/17/19 24 Active multivitamin tabletIndications :Vitamin Deficiency Prevention Take 1 tablet by mouth Active traMADoL (ULTRAM) 50 mg tablet Take 1 tablet (50 mg total) by mouth 2 (two) times a day as needed for pain 30 tablet 09/17/19 24 Active ondansetron ODT (ZOFRAN-ODT) 8 mg disintegrating tablet Take 1 tablet (8 mg total) by mouth every 8 (eight) hours as needed for nausea or vomiting 30 tablet 11 09/24/19 24 Active atorvastatin (LIPITOR) 10 mg tablet Take 1 tablet by mouth once daily 90 tablet 3 10/08/19 24 Active amLODIPine (NORVASC) 5 mg tablet Take 1 tablet (5 mg total) by mouth daily 30 tablet 11 10/23/19 24 2024 Active telmisartan (MICARDIS) 20 mg tablet Take 1 tablet (20 mg total) by mouth daily 30 tablet 11 10/23/19 24 2024 Active OLANZapine (ZyPREXA) 2.5 mg tablet Take 1 tablet (2.5 mg total) by mouth nightly 15 tablet 04/11/[address] (PROTONIX) 40 mg EC tablet Take 1 tablet by mouth once daily 30 tablet 2 05/03/20 24 Active cefdinir (OMNICEF) 300 mg capsule 05/06/20 24 Active ciprofloxacin-dex AMETHasone (CIPRODEX) otic suspension 05/06/20 24 Active sertraline (ZOLOFT) 25 mg tablet Take 1 tablet by mouth twice daily 60 tablet 07/08/19 25 Active sertraline (ZOLOFT) 25 mg tablet Take 1 tablet by mouth twice daily 60 tablet 06/02/19 25 2024 Discontinued Active Problems Problem Noted Date Diagnosed Date [...] resolve. Assessment & Plan (04/05/2022 12:32 AM ICE SCULPTOR): - Pt c/o dehydration and lightheadedness on exam - CTH was unremarkable for any acute intracranial abnormalities. No orthostatis noted on exam - c/w LR @ 75 ml/hr Bacteriuria 04/05/2022 Assessment & Plan (04/05/2022 12:39 AM ICE SCULPTOR): - UA was + for LE and trace Bacteria, given immunocompromised status, will start on Cefepime IV 2g q12h pending cultures - Taper coverage based on c&s Headache 04/05/2022 Assessment & Plan (04/05/2022 12:40 AM ICE SCULPTOR): - Pt c/o intermittent headaches and lightheadedness on exam. Given hx of mets CTH was obtained which was unremarkable for any acute intracranial abnormalities. Seasonal allergies 04/05/2022 Assessment & Plan (04/05/2022 12:40 AM ICE SCULPTOR): - c/w Flonase nasal spray MARAVILLA (dyspnea on exertion) 04/05/2022 Assessment & Plan (04/05/2022 12:48 AM ICE SCULPTOR): - Pt c/o dyspnea on exertion , can likely be related to metastatic disease progression - EKG was unremarkable on admission while Trop and BNP were also WNL - TTE donw previously in 12/2020 was remarkable for LVEf of 54% with limited study - Plan to repeat TTE Diarrhea in adult patient 04/04/2022 Assessment & Plan (04/05/2022 12:37 AM ICE SCULPTOR): - Pt presented with worsening NB , [...] 11/30/2021 Assessment & Plan (03/19/2024 10:38 AM ICE SCULPTOR): A(n) yearly Medicare Annual Wellness Visit has [...] OK Assessment & Plan (07/08/2022 12:17 PM ICE SCULPTOR): TSH 0.17 uIU/ml, normal T4 Thyroid dosing has been adjusted, awaiting repeat Assessment & Plan (04/05/2022 12:34 AM ICE SCULPTOR): - c/w Synthroid 100 mcg po qam [...] zoloft Assessment & Plan (04/05/2022 12:37 AM ICE SCULPTOR): - c/w Sertraline 25 mg po every [...] meningitis -Total spine MRI was ordered in [facility] and completed --> Posterior T12 Vertebral lesion [...] meningitis -Total spine MRI was ordered in [facility] and completed, read pending -Will start scheduled [...] 02/18/2021 Assessment & Plan (04/05/2022 12:34 AM ICE SCULPTOR): - Pt c/o worsening SOB which can [...] dehydration Assessment & Plan (07/08/2022 12:18 PM ICE SCULPTOR): Renal function decreased, GFR at 42 Creatinine 1.39 Advised on hydration Assessment & Plan (04/05/2022 12:34 AM ICE SCULPTOR): - c/w Toprol XL 50 mg po [...] recurrence. Assessment & Plan (04/05/2022 12:31 AM ICE SCULPTOR): - Pt was diagnosed with left renal [...] with Dr. Prince. - Medical oncology consult Resolved Problems Problem Noted Date Diagnosed Date Resolved Date Hypovolemia 09/02/2023 09/03/2023 Assessment & Plan (09/02/2023 12:11 PM CDT): Orthostatic vitals + on arrival. Frequent diarrhea -strict I/O. mIVF. Keep even Pulmonary emboli 04/05/2022 07/18/2023 Assessment & Plan (04/05/2022 12:39 AM ICE SCULPTOR): - Pt has documented hx of PE, has been off AC for over 3 months Total perforation of left tympanic membrane 09/12/2021 02/10/2022 Overview (09/12/2021): Added automatically from request for surgery [id number] Left renal mass 01/03/2019 01/24/2019 Overview (01/03/2019): Added automatically from request for surgery [id number] Encounters Date Type Department Care Team Description 06/20/2024 11:30 AM ICE SCULPTOR Therapy [facility] Occupational Therapy [address] [facility] 6th [place] [address] [place] [address] Shante Roberts, OT Chronic pain of right thumb (Primary Dx) 06/16/2024 1:00 PM ICE SCULPTOR Office Visit [facility] Oncology [address] [place] [address] Floor [address] [place] [address] Lorene Prince MD Malignant neoplasm of left kidney (CMS/HCC) (HCC) (Primary Dx); Malignant neoplasm of left kidney (HCC) 06/16/2024 12:00 PM ICE SCULPTOR Lab [facility] Oncology Lab [address] [place] [address] [address] [place] [address] Malignant neoplasm of left kidney (CMS/HCC) (HCC) 06/16/2024 11:45 AM ICE SCULPTOR Lab [facility] - Lab Collection [facility] Floor 5 [place] [address] Malignant neoplasm of left kidney (CMS/HCC) (HCC) 06/04/2024 1:30 PM ICE SCULPTOR Office Visit [facility] Orthopaedic Surgery [address] [facility] 2nd Floor [address] [place] [address] Govind Yee MD Arthritis of carpometacarpal (CMC) joint of right thumb (Primary Dx); Malignant neoplasm of left kidney (CMS/HCC) (HCC) 06/04/2024 1:10 PM ICE SCULPTOR Therapy [facility] Occupational Therapy [address] [facility] 1st Floor [address] [place] [phone] Shante Roberts OT Chronic pain of right thumb (Primary Dx) 06/04/2024 Orders Only HEIN OS HAND/WRIST Scanning, Provider 06/04/2024 Plan of Care Documentation [facility] Occupational Therapy [address] [facility] 1st Floor [address] [place] [phone] 06/02/2024 Documentation [facility] - Infusion Pharmacy [address] [place] [address] Floor 6 [place] [address] Barbi Lynn [facility] 202405/20/2024 1:20 PM ICE SCULPTOR Procedure visit [facility] Otolaryngology [facility] [place] [address] Mixed conductive and sensorineural hearing loss of left ear with restricted hearing of right ear (Primary Dx); Sensorineural hearing loss (SNHL) of right ear with restricted hearing of left ear 05/20/2024 1:20 PM ICE SCULPTOR Office Visit [facility] Otolaryngology 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 05/13/2024 Telephone [facility] Oncology [address] [place] [address] Floor [address] [place] [phone] Lorene Prince MD 05/13/2024 Telephone [facility] Oncology [address] [place] [address] 5 [place] [phone] Lorene Prince MD 05/09/2024 Telephone [facility] Oncology [address] [place] [address] Floor 5 [place] [address] Lorene Prince MD 05/08/2024 Telephone [facility] Oncology [address] [place] [address] 5 [place] [address] Lorene Prince MD 05/08/2024 Telephone [facility] Oncology [address] [facility] [address] [place] [phone] Pam Vance RMA Ear Drainage 05/08/2024 Telephone [facility] Oncology [address] [place] [address] 5 [place] [address] Lorene Prince MD 05/05/2024 10:30 AM ICE SCULPTOR Office Visit [facility] Oncology [address] [place] [address] 5 [place] [address] Lorene Prince MD Malignant neoplasm of left kidney (CMS/HCC) (HCC) (Primary Dx); Malignant neoplasm of left kidney (HCC) 05/05/2024 9:30 AM ICE SCULPTOR Lab [facility] On[facility] Lab [address] [place] [address] [address] [place] [address] Malignant neoplasm of left kidney (CMS/HCC) (HCC) 05/05/2024 9:15 AM ICE SCULPTOR Lab [facility] - Lab Collection [address] [place] [address] [address] [place] [address] Malignant neoplasm of left kidney (CMS/HCC) (HCC) 05/02/2024 9:14 AM ICE SCULPTOR - 05/02/2024 11:59 PM ICE SCULPTOR Hospital Encounter [facility] [place] [address] [facility] Floor 8 [place] [address] Malignant neoplasm of left kidney (CMS/HCC) (HCC) Discharge Disposition: Discharge to home or self care 05/02/2024 Telephone [facility] Oncology [address] [place] [address] [address] [place] [address] Lorene Prince MD 04/23/2024 Telephone [facility] On[facility] [address] [place] [address] [address] [place] [address] Lorene Prince MD 04/23/2024 Telephone [facility] Oncology [address] [place] [address] Floor [address] [place] [address] Lorene Prince MD 04/22/2024 11:30 AM ICE SCULPTOR Office Visit [facility] Cardiology [address] [facility] [address] [facility] [address] [place] [address] Monroe Pelletier MD Primary hypertension (Primary Dx); Mixed hyperlipidemia; Stage 3a chronic kidney disease (HCC); MARAVILLA (dyspnea on exertion); Malignant neoplasm of left kidney (HCC); 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 04/21/2024 Telephone [facility] Oncology [address] [facility] Floor 5 [place] [address] Lorene Prince MD from Last 3 Months Immunizations Immunization Administration Dates Next Due Influenza, Quadrivalent, Catie l Culture-based MDCK, Preservative Free, Antibiotic Free, Intramuscular 02/07/2021 Influenza, Trivalent, Recomb inant, Egg Free, Preservative Free, Antibiotic Free, IM (FLUBLOK) 01/14/2024 Influenza, Unspecified 01/17/2023,2021(Deferred: Allergy) Pfizer SARS-CoV-2 Monovalent Vaccination (12+ Yrs) PURPLE 09/27/2021,08/31/2020,08/09/2020 Pneumococcal Conjugate Pcv20 01/17/2023 RSV Vaccine, Pref, Recombina nt, Subunit, Adjuvanted, PF, IM (Arexvy) 01/29/2023 Tdap 08/23/2022,11/30/2021 ZOSTER Recombinant 01/29/2023,07/05/2022 Surgical History Surgery Date Site/Laterality Comments TONSILLECTOMY 05/07/1985 - 05/06/1986 FOOT SURGERY 05/07/2003 - 05/06/2004 Bilateral bone spurs CHOLECYSTECTOMY 05/07/2012 - 05/06/2013 BREAST CYST EXCISION 2005, 2003 KNEE ARTHROSCOPY Right ligament repair MYRINGOTOMY W/ TUBES 05/07/2017 - 05/06/2018 Left Removed 2019 NEPHRECTOMY RADICAL 05/07/2018 - 05/06/2019 Left PERCUTANEOUS NEEDLE BIOPSY L YOLIS LEFT 01/12/2021 Left COLONOSCOPY ABDOMINAL SURGERY 2019 TYMPANOPLASTY 11/04/2021 - 12/04/2021 Medical History Medical History Date Comments Hypertension Asthma Pre-diabetes on metformin Kidney mass 2019 GERD (gastroesophageal reflux disease) Anemia Anxiety Primary malignant neoplasm o f left kidney with metastasis from kidney to other site (HCC) 2019 COPD (chronic obstructive pulmonary disease) (HC C) Motion sickness Hypothyroidism, unspecified 07/18/2021 Allergies Depression History of kidney problems Sinusitis Arthritis Milk protein allergy 11/30/2021 Allergic rhinitis HL (hearing loss) Dizziness Tinnitus Headache TMJ dysfunction Nausea vomiting and diarrhea 07/18/2021 Cancer of kidney (HCC) Family History Medical History Relation Name Comments Clotting disorder Father Pearlis Rheum arthritis Father Pearlis Clotting disorder Father's Brother 1 Algene Kidney cancer Father's Brother 1 Algene Kidney disease Father's Brother 1 Algene Clotting disorder Father's Brother 2 [place] Hearing loss Maternal Grandmother Louise Agarwal Heart attack Maternal Grandmother Louise Agarwal Vision loss Maternal Grandmother Louise Agarwal Arthritis Mother Jasvir Diaz Diabetes Mother Jasvir Diaz Hearing loss Mother Jasvir Diaz Hypertension Mother Jasvir Diaz Miscarriages / Stillbirths Mother Jasvir Prieto son Vision loss Mother Jasvir Diaz Clotting disorder Paternal Grandmother Dominique Arthritis Sister 1 Cherelle Asthma Sister 1 Cherelle Rashes / Skin problems Sister 1 Cherelle Asthma Sister 2 Radha Depression Sister 2 Radha Asthma Sister 3 Kemi Depression Sister 3 Kemi Diabetes Sister 3 Kemi Asthma Son Sha Condon Anesthesia problems Neg Hx Relation Name Status Comments Father Merlines Father's Brother 1 Algene Father's Brother 2 [place] Maternal Grandmother Louise Agarwal Mother Jasvir Diaz Paternal Grandmother Dominique Sister 1 Cherelle Sister 2 Radha Sister 3 Kemi Son Sha Condon Social History Tobacco Use Types Packs/Day Years Used Date Smoking Tobacco: Never Passive Smoke Exposure: Past Smokeless Tobacco: Never Tobacco Cessation:Counseling Given: Not Answered Alcohol Use Standard Drinks/Week Comments Never 0 (1 standard drink = 0.6 oz pur e alcohol) [facility] Utilities Answer Date Recorded In [...] How often do you attend chur or taoist services? Patient unable to answer 09/04/2023 Do you belong to any clubs o r organizations such as worship groups, unions, fraternal or athletic groups, or [...] place to sleep or slept in a fpc (including now)? Patient unable to answer 09/04/2023 [...] on file Legal Sex Female 8:31 AM ICE SCULPTOR Gender Identity Female 12/08/2020 1:45 PM CDT Sexual Orientation Straight 01/22/2019 10 :49 AM CDT Obstetrics History Last Filed Vital Signs Vital Sign Reading Time Taken Comments Blood Pressure 132/84 06/16/2024 12:41 PM ICE SCULPTOR Pulse 93 06/16/2024 12:41 PM ICE SCULPTOR Temperature 36.3 C (97.3 F) 06/16/2024 12:41 PM ICE SCULPTOR Respiratory Rate 17 06/16/2024 12:41 PM ICE SCULPTOR Oxygen Saturation 97% 06/16/2024 12:41 PM ICE SCULPTOR Inhaled Oxygen Concentration - - Weight 73.9 kg (163 lb) 06/16/2024 12:41 PM ICE SCULPTOR Height 160 cm (5' 3 ) 06/16/2024 12:41 PM ICE SCULPTOR Body Mass Index 28.87 06/16/2024 12:41 PM ICE SCULPTOR Plan of Treatment Health Maintenance Due Date Last Done Comments Hepatitis B Screening 1978 Covid-19 Vaccine (6 - Pfizer risk season) 2024 01/14/2024, 09/27/2021, 09/27/2021, Additional history exists Breast Cancer Screening-Mammogram 10/03/2024 024, 09/19/2022 Depression Screening 03/19/2025 03/19/2024, 09/11/2023, 07/23/2023, Additional history exists Fall Risk Assessment 03/19/2025 03/19/2024, 01/21/2024, 09/11/2023, Additional history exists Well Visit 65+ 03/19/2025 03/19/2024, 11/30/2021 Osteoporosis Screening-Bone Density Scan 07/25/2025 07/26/2023 Colon Cancer Screening-Colonoscopy 07/23/2031 07/22/2021, 07/20/2021 DTaP/Tdap/Td Vaccine (3 - Td or Tdap) 08/23/2032 08/23/2022, 11/30/2021 Hepatitis C Screening Completed 01/03/2021 Colon Cancer Screening-CT Colonography Discontinued 07/22/2021, 07/20/2021 Colon Cancer Screening-DNA Stool Discontinued 07/23/19, 07/20/2021 Colon Cancer Screening-FIT Discontinued 07/22/2021, Colon Cancer Screening-Sigmoidoscopy Discontinued 07/22/2021, 07/20/2021 Pneumococcal vaccine 65+ Completed 01/17/2023 Zoster Vaccine Completed 01/29/2023, 07/05/2022 Cervical Cancer Screening Discontinued 04/11/2023, 10/2022 Influenza Vaccine Completed 01/14/2024, , 02/07/2021 Procedures Procedure Name Priority Date/Time Associated Diagnosis Comments PROTEIN / CREATININE RATIO, URINE, RANDOM Routine 06/16/2024 12:05 PM ICE SCULPTOR Malignant neoplasm of left kidney (CMS/HCC) (HCC) EGFR Routine 06/16/2024 11:52 AM ICE SCULPTOR Malignant neoplasm of left kidney (HCC) DIFFERENTIAL AUTO Routine 06/16/2024 11:52 AM ICE SCULPTOR Malignant neoplasm of left kidney (HCC) THYROID FUNCTION CASCADE Routine 06/16/2024 11:52 AM ICE SCULPTOR Malignant neoplasm of left kidney (CMS/HCC) (HCC) CBC WITH AUTO DIFFERENTIAL Routine 06/16/2024 11:52 AM ICE SCULPTOR Malignant neoplasm of left kidney (CMS/HCC) (HCC) COMPREHENSIVE METABOLIC PANEL Routine 06/16/2024 11:52 AM ICE SCULPTOR Malignant neoplasm of left kidney (CMS/HCC) (HCC) LIPID PANEL Routine 06/16/2024 11:52 AM ICE SCULPTOR Malignant neoplasm of left kidney (CMS/HCC) (HCC) [place] ARTHROCENTESIS ASPIR&/INJ SMALL JT/BURSA W/O US Routine 06/04/2024 1:30 PM ICE SCULPTOR Arthritis of carpometacarpal (CMC) joint of right thumb SCAN - RADIOLOGY/IMAGING 06/04/2024 AUDBASE RESULTS 05/20/2024 1:27 PM ICE SCULPTOR PROTEIN / CREATININE RATIO, URINE, RANDOM Routine 05/05/2024 9:29 AM ICE SCULPTOR Malignant neoplasm of left kidney (CMS/HCC) (HCC) EGFR Routine 05/05/2024 9:18 AM ICE SCULPTOR Malignant neoplasm of left kidney (HCC) DIFFERENTIAL AUTO Routine 05/05/2024 9:1 8 AM ICE SCULPTOR Malignant neoplasm of left kidney (HCC) THYROID FUNCTION CASCADE Routine 05/05/2024 9:18 AM ICE SCULPTOR Malignant neoplasm of left kidney (CMS/HCC) (HCC) CBC WITH AUTO DIFFERENTIAL Routine 05/05/2024 9:18 AM ICE SCULPTOR Malignant neoplasm of left kidney (CMS/HCC) (HCC) COMPREHENSIVE METABOLIC PANEL Routine 05/05/2024 9:18 AM ICE SCULPTOR Malignant neoplasm of left kidney (CMS/HCC) (HCC) LIPID PANEL Routine 05/05/2024 9:18 AM ICE SCULPTOR Malignant neoplasm of left kidney (CMS/HCC) (HCC) CT CHEST ABDOMEN PELVIS W CONTRAST Schedule Routine, Read Routine (OP Routine) 05/02/2024 9:47 AM ICE SCULPTOR Malignant neoplasm of left kidney (CMS/HCC) (HCC) POCT CREATININE - DEVICE Routine 05/02/2024 9:26 AM ICE SCULPTOR SCREENING MAMMOGRAM BILATERAL W MONICA Schedule Routine, Read Routine (OP Routine) 10/04/2023 8:05 AM CDT Screening mammogram for breast cancer DEXA AXIAL SKELETON BONE DENSITY 1 OR MORE SITES Schedule Routine, Read Routine (OP Routine) 07/26/2023 8:08 AM CDT Screening for osteoporosis [facility] (current) use of immunomodulator HIGH RISK HPV DNA DETECTION WITH GENOTYPING Routine 04/11/2023 1:[address] VIRTUAL COLONOSCOPY DIAGNOSTIC W CONTRAST IP Routine 07/22/2021 2:35 PM CDT HEPATITIS C ANTIBODY Routine 01/03/2021 12:02 PM CDT Malignant neoplasm of left kidney (HCC) from Last 3 Months or Most Recently Relevant to Health Maintenance Results * Protein / creatinine ratio, urine, random (06/16/2024 12:05 PM ICE SCULPTOR) Pathologist [facility] Protein, ur, quant 7.6 mg/dL Comment: Interpretive Data No reference range established. Current interpretive data was last revised 2018. Creatinine Ur 79.8 mg/dL [facility] Comment: Interpretive Data No reference range established. Current interpretive data was last revised 2018. Protein/creatinin e ratio 95.2 0.0 - 180.0 mg/g CR [facility] Urine 06/16/2024 12:0 5 PM ICE SCULPTOR 06/16/2024 12:44 PM ICE SCULPTOR us Lorene Prince MD LAB URINE ORDERABLES F inal Result [facility] Department [place] [address] * (ABNORMAL) eGFR (06/16/2024 11:52 AM ICE SCULPTOR) Pathologist [facility] eGFR 52(L) >=60 mL/min/1. 73 m2 Comment: Interpretive Data Reference Interval Normal >/= 90 mL/min/1.73m2 Mildly decreased* 60 - 89 mL/min/1.73m2 Mildly to moderately decreased 45 - 59 mL/min/1.73m2 Moderately to severely decreased 30 - 44 mL/min/1.73m2 Severely decreased 15 - 29 mL/min/1.73m2 Kidney Failure < 15 mL/min/1.73m2 *Relative to young adult level Estimated glomerular filtration rate is determined by the 2020 CKD-EPI equation recommended by the National Kid[employer] Foundation (A Unifying Approach to GFR Estimation: Recommendations of the NKF-ASK Task Force on Reassessing the Inclusion of Race in Diagnosing Kidney Disease, JASN 2020). The CKD-EPI equation should not be used for patients with unstable renal function and has not been validated in children and those over 70. Current interpretive data was last reviewed 2021. Blood 06/16/2024 11:5 2 AM ICE SCULPTOR 06/16/2024 12:05 PM ICE SCULPTOR Lorene Prince MD LAB BLOOD ORDERABLES F inal Result [facility] Department [place] [address] * Differential, auto (06/16/2024 11:52 AM ICE SCULPTOR) Neutrophil abs 3.4 1.5 - 6.5 K/cumm Comment:Testing performed by : [facility], [address] [place] [address] Lymphocyte abs 2.1 0.8 - 3.3 K/cumm [facility] Comment:Testing performed by : [facility], [address] [place] [phone] Monocyte abs 0.4 0.2 - 0.8 K/cumm [facility] Comment:Testing performed by : [facility], [address] [place], [place] [phone] Eosinophil abs 0.1 0.0 - 0.5 K/cumm [facility] [facility] Comment:Testing performed by : [facility], [address] [place], [place] [phone] Basophil abs 0.1 0.0 - 0.1 K/cumm [facility] Comment:Testing performed by : [facility], [address] [place] [phone] Neutrophil pct 56.2 % C[facility]ER [facility]J Comment: Interpretive Data Percent cell count reference ranges are not reported, since discordance with absolute values may lead to misinterpretation of CBC data. Current Interpretive Data was last revised on 2017. Testing performed by: [facility], [address] [place] [phone] Lymphocyte pct 34.4 % [facility] Comment: Interpretive Data Percent cell count reference ranges are not reported, since discordance with absolute values may lead to misinterpretation of CBC data. Current Interpretive Data was last revised on 2017. Testing performed by: [facility], [address] [place] [phone] Monocyte pct 6.8 % [facility]ER [facility]J Comment: Interpretive Data Percent cell count reference ranges are not reported, since discordance with absolute values may lead to misinterpretation of CBC data. Current Interpretive Data was last revised on 2017. Testing performed by: [facility], [address] [place] [phone] Eosinophil pct 1.6 % [facility]J Comment: Interpretive Data Percent cell count reference ranges are not reported, since discordance with absolute values may lead to misinterpretation of CBC data. Current Interpretive Data was last revised on 2017. Testing performed by: [facility], [address] [place] [phone] Basophil pct 1.0 % [facility] Comment: Interpretive Data Percent cell count reference ranges are not reported, since discordance with absolute values may lead to misinterpretation of CBC data. Current Interpretive Data was last revised on 2017. Testing performed by: [facility], [address] [place] [phone] Blood 06/16/2024 11:5 2 AM ICE SCULPTOR 06/16/2024 12:03 PM ICE SCULPTOR us Lorene Prince MD LAB BLOOD ORDERABLES F inal Result Performing Organization Address City/[facility]/ZIP Co de Phone Number MOIRA PIPER [facility] Department [place] [address] * Thyroid Function [place] (06/16/2024 11:52 AM ICE SCULPTOR) [facility] TSH 0.66 0.30 - 4.20 mcIUnit/mL Blood 06/16/2024 11:5 2 AM ICE SCULPTOR 06/16/2024 12:05 PM ICE SCULPTOR Lorene Prince MD LAB BLOOD ORDERABLES F inal Result Performing Organization Address [facility] Co de Phone Number [facility] Department [place] [address] * (ABNORMAL) CBC with auto differential (06/16/2024 11:52 AM ICE SCULPTOR) [facility] WBC 6.0 3.8 - 9.9 K/cumm Comment:Testing performed by : [facility], [address] [place] [phone] Hgb 12.1 11.9 - 15.5 g/dL C[facility]ER [facility]J Comment:Testing performed by : [facility], [address] [place] [phone] Hct 38.9 35.6 - 45.5 % C[facility]ER BJ Comment:Testing performed by : [facility], [address] [place] [phone] Plt 226 150 - 400 K/cumm CERNER BJ Comment:Testing performed by : [facility], [address] [place] [phone] MPV 9.0 6.8 - 10.4 fL CERKOSTA BJ Comment:Testing performed by : [facility], [address] [place] [phone] RBC 5.17 3.90 - 5.20 M/cumm CERKOSTA BJ Comment:Testing performed by : [facility], [address] [place], [place] [phone] MCV 75.3(L) 81.3 - 96.4 fL [facility] Comment:Testing performed by : [facility], [address] [place], [place] [phone] MCH 23.4(L) 27.1 - 33.3 pg [facility] Comment:Testing performed by : [facility], [address] [place], [place] [phone] MCHC 31.1(L) 32.3 - 35.7 g/dL [facility] Comment:Testing performed by : [facility], [address] [place], [place] [phone] RDW CV 18.5(H) 11.1 - 14.9 % [facility] Comment:Testing performed by : [facility], [address] [place], [place] [phone] NRBC abs 0.00 0.00 - 0.01 K/cumm [facility] Comment:Testing performed by : [facility], [address] [place] [phone] Blood 06/16/2024 11:5 2 AM ICE SCULPTOR 06/16/2024 12:03 PM ICE SCULPTOR us Lorene Prince MD LAB BLOOD ORDERABLES F inal Result [facility] Department [place] [address] * Lipid panel (06/16/2024 11:52 AM ICE SCULPTOR) Cholesterol 156 30 - 199 mg/dL Comment: Interpretive Data Ages < or = 19 years Acceptable: <170 mg/dL Borderline high: 170-199 mg/dL High: >or= 200 mg/dL Ages > or = 20 years Desirable: <200 mg/dL Borderline high: 200-239 mg/dL High: >or= 240 mg/dL Literature References: 1. Expert Panel on Integrated Guidelines for Cardiovascular Health and Risk Reduction in Children and Adolescents. Pediatrics 2011;128:S213 2. NCEP Expert Panel. Circulation 2004;110:227 Current Interpretive Data was last revised on 2017. Triglycerides 108 <=149 mg/dL [facility] Comment: Interpretive Data Ages < or = 9 years Acceptable: <75 mg/dL Borderline high: 75-99 mg/dL High: >or= 100 mg/dL Ages 10 to 20 years Acceptable: <90 mg/dL Borderline high: 90-129 mg/dL High: >or= 130 mg/dL Ages > or = 20 years Desirable: <150 mg/dL Borderline high: 150-199 mg/dL High: 200-499 mg/dL Very high: >or= 499 mg/dL Literature References: 1. Expert Panel on Integrated Guidelines for Cardiovascular Health and Risk Reduction in Children and Adolescents. Pediatrics 2011;128:S213 2. NCEP Expert Panel. Circulation 2004;110:227 Current Interpretive Data was last revised on 2017. HDL 60 >=40 mg/dL [facility] Comment: Interpretive Data Ages < or = 19 years Acceptable: >45 mg/dL Borderline low: 40-45 mg/dL Low: <40 mg/dL Ages > or = 20 years Desirable: >or= 60 mg/dL Low: <40 mg/dL Literature References: 1. Expert Panel on Integrated Guidelines for Cardiovascular Health and Risk Reduction in Children and Adolescents. Pediatrics 2011;128:S213 2. NCEP Expert Panel. Circulation 2004;110:227 Current Interpretive Data was last revised on 2017. LDL, calculated 77 <=129 mg/dL [facility] Comment: Interpretive Data Ages < or = 19 years Acceptable: <110 mg/dL Borderline high: 110-129 mg/dL High: >or= 130 mg/dL Ages > or = 20 years Optimal: <100 mg/dL Near optimal: 100-129 mg/dL Borderline high: 130-159 mg/dL High: >160 mg/dL Calculated using the Momo LDL-C estimating equation. This equation was implemented on 2023. Prior to this date LDL-C was estimated using the Friedewald equation. Literature References: 1. Expert Panel on Integrated Guidelines for Cardiovascular Health and Risk Reduction in Children and Adolescents. Pediatrics 2011;128:S213 2. NCEP Expert Panel. Circulation 2004;110:227 3. Momo Sinha et al. NAOMY Cardiol. 2019September 04;5(5):540543. doi: 10.1001/jamacardio.2020.0013 Current Interpretive Data was last revised on 2023. Non-HDL Cholesterol 96 mg/dL [facility] Comment: Interpretive Data Ages < or = 19 years Acceptable: <120 mg/dL Borderline high: 120-144 mg/dL High: >145 mg/dL Ages > or = 20 years When triglycerides are >200 mg/dL, Non-HDL cholesterol is a secondary target of therapy with treatment goals that are 30 mg/dL greater than the LDL cholesterol target. Literature References: 1. Expert Panel on Integrated Guidelines for Cardiovascular Health and Risk Reduction in Children and Adolescents. Pediatrics 2011;128:S213 2. NCEP Expert Panel. Circulation 2004;110:227 Current Interpretive Data was last revised on 2017. Chol/HDL ratio 3 [facility] Blood 06/16/2024 11:5 2 AM ICE SCULPTOR 06/16/2024 12:05 PM ICE SCULPTOR Lorene Prince MD LAB BLOOD ORDERABLES F inal Result [facility] Department [place] [address] * (ABNORMAL) Comprehensive metabolic panel (06/16/2024 11:52 AM ICE SCULPTOR) Sodium 142 135 - 145 mmol/L Potassium, pl 4.0 3.3 - 4.9 mmol/L [facility] Chloride 105 97 - 110 mmol/L [facility] CO2 30 22 - 32 mmol/L [facility] Anion gap 7 2 - 15 mmol/L [facility] BUN 12 6 - 25 mg/dL [facility] Creatinine 1.17(H) 0.60 - 1.10 mg/dL [facility] Glucose 131 70 - 199 mg/dL [facility] Comment: Interpretive Data Fasting glucose >/= 126 mg/dl is diagnostic for diabetes. Fasting is defined as no caloric intake for at least 8 hours. Fasting glucose between 100 mg/dl to 125 mg/dl is diagnostic of prediabetes. In a patient with classic symptoms of hyperglycemia or hyperglycemic crisis, a random glucose >/= 200 mg/dl is diagnostic for diabetes. In the absence of unequivocal hyperglycemia, results should be confirmed by repeat testing. The classification and Diagnosis of Diabetes Diabetes Care 2021; 46: S19-S40. Current interpretive data was last revised 2022. Calcium 9.4 8.5 - 10.3 mg/dL [facility] Bilirubin, total 0.6 0.1 - 1.2 mg/dL [facility] Protein, pl 7.1 6.5 - 8.5 g/dL [facility] Albumin 3.9 3.5 - 5.0 g/dL [facility] Alk phos 75 40 - 130 Units/L CERNER H ALT 22 7 - 45 Units/L [facility] AST 33 10 - 45 Units/L [facility] Blood 06/16/2024 11:5 2 AM ICE SCULPTOR 06/16/2024 12:05 PM ICE SCULPTOR us Lorene Prince MD LAB BLOOD ORDERABLES F inal Result [facility] Department [place] [address] * [place] ARTHROCENTESIS ASPIR&/INJ SMALL JT/BURSA W/O US (06/04/2024 1:30 PM ICE SCULPTOR) Narrative Govind Yee MD - 06/04/2024 1:30 PM ICE SCULPTOR Govind Yee MD 06/04/2024 5:59 PM Small Joint Injection: R thumb CMC Performed by: Govind Yee MD Authorized by: Govind Yee MD Procedure Details: Location: Thumb Site: R thumb CMC Medications: 1 mL lidocaine 10 mg/mL (1 %); 40 mg methylPREDNISolone acetate 40 mg/mL Procedure: Thumb CMC Corticosteroid Injection The nature of and the indications for a corticosteroid and / or local anaesthetic injection were reviewed in detail with the patient today. The inherent risks of injection including infection, allergic reaction, increased pain, incomplete relief or temporary relief of symptoms, alterations of blood glucose levels requiring careful monitoring and treatment as indicated, tendon, ligament or articular cartilage rupture or degeneration, were discussed. The patient elected to proceed with the injection. The injection was performed under sterile conditions after informed consent was obtained from the patient and the correct injection site was confirmed with the patient. The right thumb CMC joint was injected with with 1.5 cc of a 1:1 solution of Depomedrol and 1% Xylocaine without epinepherine. A sterile band-aide was applied. The patient tolerated the injection well and was discharged without complication. Post-injection protocol for activity modification, anti-inflammatory measures, and follow-up was reviewed with the patient. us Govind Yee MD IN CLINIC/BEDSIDE ORDERABL ES Final Result * SCAN - RADIOLOGY/IMAGING (06/04/2024) Anatomical Region Laterality Modality Other Provider Scanning Final Result * [employer] Results (05/20/2024 1:27 PM ICE SCULPTOR) Provider Scanning AUDIOLOGY SERVICES ORDERABLES Final Result * Protein / creatinine ratio, urine, random (05/05/2024 9:29 AM ICE SCULPTOR) Pathologist [facility] Protein, ur, quant 7.2 mg/dL Comment: Interpretive Data No reference range established. Current interpretive data was last revised 2018. Creatinine Ur 72.4 mg/dL [facility] Comment: Interpretive Data No reference range established. Current interpretive data was last revised 2018. Protein/creatinin e ratio 99.4 0.0 - 180.0 mg/g CR [facility] Urine 05/05/2024 9:29 AM ICE SCULPTOR 05/05/2024 9:50 AM ICE SCULPTOR Lorene Prince MD LAB URINE ORDERABLES F inal Result [facility] [place] [address] * (ABNORMAL) eGFR (05/05/2024 9:18 AM ICE SCULPTOR) eGFR 53(L) >=60 mL/min/1. 73 m2 Comment: Interpretive Data Reference Interval Normal >/= 90 mL/min/1.73m2 Mildly decreased* 60 - 89 mL/min/1.73m2 Mildly to moderately decreased 45 - 59 mL/min/1.73m2 Moderately to severely decreased 30 - 44 mL/min/1.73m2 Severely decreased 15 - 29 mL/min/1.73m2 Kidney Failure < 15 mL/min/1.73m2 *Relative to young adult level Estimated glomerular filtration rate is determined by the 2020 CKD-EPI equation recommended by the National Kidney Foundation (A Unifying Approach to GFR Estimation: Recommendations of the NKF-ASK Task Force on Reassessing the Inclusion of Race in Diagnosing Kidney Disease, JASN 2020). The CKD-EPI equation should not be used for patients with unstable renal function and has not been validated in children and those over 70. Current interpretive data was last reviewed 2021. Blood 05/05/2024 9:18 AM ICE SCULPTOR 05/05/2024 9:22 AM ICE SCULPTOR us Lorene Prince MD LAB BLOOD ORDERABLES F inal Result [facility] Department [place] [address] * Differential, auto (05/05/2024 9:18 AM ICE SCULPTOR) Pathologist [facility] Neutrophil abs 3.3 1.5 - 6.5 K/cumm Comment:Testing performed by : [facility], [address] [place] [phone] Lymphocyte abs 2.7 0.8 - 3.3 K/cumm MOIRA PIPER Comment:Testing performed by : [facility], [address] [place] [phone] Monocyte abs 0.6 0.2 - 0.8 K/cumm MOIRA PIPER Comment:Testing performed by : [facility], [address] [place] [phone] Eosinophil abs 0.1 0.0 - 0.5 K/cumm [facility] Comment:Testing performed by : [facility], [address] [place] [phone] Basophil abs 0.1 0.0 - 0.1 K/cumm [facility] Comment:Testing performed by : [facility], [address] [place] [phone] Neutrophil pct 48.3 % [facility] Comment: Interpretive Data Percent cell count reference ranges are not reported, since discordance with absolute values may lead to misinterpretation of CBC data. Current Interpretive Data was last revised on 2017. Testing performed by: [facility], [address] [place] [phone] Lymphocyte pct 40.1 % [facility]ER [facility] Comment: Interpretive Data Percent cell count reference ranges are not reported, since discordance with absolute values may lead to misinterpretation of CBC data. Current Interpretive Data was last revised on 2017. Testing performed by: [facility], [address] [place] [phone] Monocyte pct 8.1 % [facility]ER [facility]J Comment: Interpretive Data Percent cell count reference ranges are not reported, since discordance with absolute values may lead to misinterpretation of CBC data. Current Interpretive Data was last revised on 2017. Testing performed by: [facility], [address] [place] [phone] Eosinophil pct 1.6 % [facility] Comment: Interpretive Data Percent cell count reference ranges are not reported, since discordance with absolute values may lead to misinterpretation of CBC data. Current Interpretive Data was last revised on 2017. Testing performed by: [facility], [address] [place] [phone] Basophil pct 1.9 % [facility]ER [facility]J Comment: Interpretive Data Percent cell count reference ranges are not reported, since discordance with absolute values may lead to misinterpretation of CBC data. Current Interpretive Data was last revised on 2017. Testing performed by: [facility], [address] [place] [phone] Blood 05/05/2024 9:18 AM ICE SCULPTOR 05/05/2024 9:21 AM ICE SCULPTOR us Lorene Prince MD LAB BLOOD ORDERABLES F inal Result Performing Organization Address City/[facility] Co de Phone Number [facility] [place] [address] * Thyroid Function [place] (05/05/2024 9:18 AM ICE SCULPTOR) Pathologist [facility] TSH 1.97 0.30 - 4.20 mcIUnit/mL Blood 05/05/2024 9:18 AM ICE SCULPTOR 05/05/2024 9:22 AM ICE SCULPTOR us Lorene Prince MD LAB BLOOD ORDERABLES F inal Result Performing Organization Address [facility] de Phone Number [facility] Department [place] [address] * (ABNORMAL) CBC with auto differential (05/05/2024 9:18 AM ICE SCULPTOR) [facility] WBC 6.8 3.8 - 9.9 K/cumm Comment:Testing performed by : [facility], [address] [place] [address] Hgb 12.9 11.9 - 15.5 g/dL [facility] Comment:Testing performed by : [facility], [address] [place] [address] Hct 40.4 35.6 - 45.5 % [facility] Comment:Testing performed by : [facility], [address] [place] [phone] Plt 256 150 - 400 K/cumm [facility] Comment:Testing performed by : [facility], [address] [place] [address] MPV 8.8 6.8 - 10.4 fL [facility] Comment:Testing performed by : [facility], [address] [place] [address] RBC 5.37(H) 3.90 - 5.20 M/cumm [facility] Comment:Testing performed by : [facility], [address] [place] [phone] MCV 75.3(L) 81.3 - 96.4 fL [facility] Comment:Testing performed by : [facility], [address] [place], [place] [phone] MCH 23.9(L) 27.1 - 33.3 pg [facility] Comment:Testing performed by : [facility], [address] [place], [place] [phone] MCHC 31.8(L) 32.3 - 35.7 g/dL [facility] Comment:Testing performed by : [facility], [address] [place], [place] [phone] RDW CV 18.8(H) 11.1 - 14.9 % [facility] Comment:Testing performed by : [facility], [address] [place], [place] [phone] NRBC abs 0.00 0.00 - 0.01 K/cumm [facility] Comment:Testing performed by : [facility], [address] [place], [place] [phone] Blood 05/05/2024 9:18 AM ICE SCULPTOR 05/05/2024 9:21 AM ICE SCULPTOR us Lorene Prince MD LAB BLOOD ORDERABLES F inal Result [facility] Department [place] [address] * Lipid panel (05/05/2024 9:18 AM ICE SCULPTOR) Cholesterol 153 30 - 199 mg/dL Comment: Interpretive Data Ages < or = 19 years Acceptable: <170 mg/dL Borderline high: 170-199 mg/dL High: >or= 200 mg/dL Ages > or = 20 years Desirable: <200 mg/dL Borderline high: 200-239 mg/dL High: >or= 240 mg/dL Literature References: 1. Expert Panel on Integrated Guidelines for Cardiovascular Health and Risk Reduction in Children and Adolescents. Pediatrics 2011;128:S213 2. NCEP Expert Panel. Circulation 2004;110:227 Current Interpretive Data was last revised on 2017. Triglycerides 131 <=149 mg/dL [facility] Comment: Interpretive Data Ages < or = 9 years Acceptable: <75 mg/dL Borderline high: 75-99 mg/dL High: >or= 100 mg/dL Ages 10 to 20 years Acceptable: <90 mg/dL Borderline high: 90-129 mg/dL High: >or= 130 mg/dL Ages > or = 20 years Desirable: <150 mg/dL Borderline high: 150-199 mg/dL High: 200-499 mg/dL Very high: >or= 499 mg/dL Literature References: 1. Expert Panel on Integrated Guidelines for Cardiovascular Health and Risk Reduction in Children and Adolescents. Pediatrics 2011;128:S213 2. NCEP Expert Panel. Circulation 2004;110:227 Current Interpretive Data was last revised on 2017. HDL 61 >=40 mg/dL [facility] Comment: Interpretive Data Ages < or = 19 years Acceptable: >45 mg/dL Borderline low: 40-45 mg/dL Low: <40 mg/dL Ages > or = 20 years Desirable: >or= 60 mg/dL Low: <40 mg/dL Literature References: 1. Expert Panel on Integrated Guidelines for Cardiovascular Health and Risk Reduction in Children and Adolescents. Pediatrics 2011;128:S213 2. NCEP Expert Panel. Circulation 2004;110:227 Current Interpretive Data was last revised on 2017. LDL, calculated 69 <=129 mg/dL [facility] Comment: Interpretive Data Ages < or = 19 years Acceptable: <110 mg/dL Borderline high: 110-129 mg/dL High: >or= 130 mg/dL Ages > or = 20 years Optimal: <100 mg/dL Near optimal: 100-129 mg/dL Borderline high: 130-159 mg/dL High: >160 mg/dL Calculated using the Barr LDL-C estimating equation. This equation was implemented on 2023. Prior to this date LDL-C was estimated using the Friedewald equation. Literature References: 1. Expert Panel on Integrated Guidelines for Cardiovascular Health and Risk Reduction in Children and Adolescents. Pediatrics 2011;128:S213 2. NCEP Expert Panel. Circulation 2004;110:227 3. Momo M et al. NAOMY Cardiol. 2020 September 04;5(5):540-548. doi: 10.1001/jamacardio.2020.0013 Current Interpretive Data was last revised on 2023. Non-HDL Cholesterol 92 mg/dL [facility] Comment: Interpretive Data Ages < or = 19 years Acceptable: <120 mg/dL Borderline high: 120-144 mg/dL High: >145 mg/dL Ages > or = 20 years When triglycerides are >200 mg/dL, Non-HDL cholesterol is a secondary target of therapy with treatment goals that are 30 mg/dL greater than the LDL cholesterol target. Literature References: 1. Expert Panel on Integrated Guidelines for Cardiovascular Health and Risk Reduction in Children and Adolescents. Pediatrics 2011;128:S213 2. NCEP Expert Panel. Circulation 2004;110:227 Current Interpretive Data was last revised on 2017. Chol/HDL ratio 3 [facility] Blood 05/05/2024 9:18 AM ICE SCULPTOR 05/05/2024 9:22 AM ICE SCULPTOR us Lorene Prince MD LAB BLOOD ORDERABLES F inal Result [facility] [place] [address] * (ABNORMAL) Comprehensive metabolic panel (05/05/2024 9:18 AM ICE SCULPTOR) Sodium 139 135 - 145 mmol/L Potassium, pl 4.2 3.3 - 4.9 mmol/L [facility] [facility] Chloride 102 97 - 110 mmol/L [facility] CO2 30 22 - 32 mmol/L [facility] Anion gap 7 2 - 15 mmol/L [facility] BUN 15 6 - 25 mg/dL [facility] Creatinine 1.14(H) 0.60 - 1.10 mg/dL [facility] Glucose 111 70 - 199 mg/dL [facility] Comment: Interpretive Data Fasting glucose >/= 126 mg/dl is diagnostic for diabetes. Fasting is defined as no caloric intake for at least 8 hours. Fasting glucose between 100 mg/dl to 125 mg/dl is diagnostic of prediabetes. In a patient with classic symptoms of hyperglycemia or hyperglycemic crisis, a random glucose >/= 200 mg/dl is diagnostic for diabetes. In the absence of unequivocal hyperglycemia, results should be confirmed by repeat testing. The classification and Diagnosis of Diabetes Diabetes Care 2021; 46: S19-S40. Current interpretive data was last revised 2022. Calcium 10.0 8.5 - 10.3 mg/dL [facility] Bilirubin, total 0.5 0.1 - 1.2 mg/dL [facility] Protein, pl 7.5 6.5 - 8.5 g/dL [facility] Albumin 4.0 3.5 - 5.0 g/dL [facility] Alk phos 75 40 - 130 Units/L [facility] ALT 24 7 - 45 Units/L [facility] AST 35 10 - 45 Units/L [facility] Blood 05/05/2024 9:18 AM ICE SCULPTOR 05/05/2024 9:22 AM ICE SCULPTOR us Lorene Prince MD LAB BLOOD ORDERABLES F inal Result [facility] Department [place] [address] * CT Chest Abdomen Pelvis W Contrast (05/02/2024 9:47 AM ICE SCULPTOR) Anatomical Region Laterality Modality Body N/A Computed Tomogra phy 05/02/2024 10:4 2 AM ICE SCULPTOR Impressions 05/02/2024 10:42 AM ICE SCULPTOR 1. Stable pulmonary metastatic disease. 2. No evidence of recurrent or metastatic disease in the abdomen or pelvis. Electronically signed by: Alix Coello M.D. 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 COMPARISON: 03/06/2024 FINDINGS: Chest: There is no axillary, supraclavicular, mediastinal or hilar enlarged lymph nodes. Normal heart size is normal. There is no pericardial effusion. Atherosclerotic outstation of the coronary arteries are seen. There is a small hiatal hernia. Multiple pulmonary nodules compatible with the patient's known metastatic disease are not significantly changed compared to the prior examination. For example, a 2.0 cm lesion in the superior left lower lobe (series 3 image 63). No new pulmonary lesion is seen. No pleural effusion or pneumothorax. ABDOMEN/PELVIS: No suspicious hepatic lesion. There is mild heterogeneous appearance of the right hemiliver is more conspicuous from prior exam and favored to represent vascular shunting. Status post cholecystectomy. Mild extrahepatic biliary ductal dilatation in the setting of prior cholecystectomy likely represents reservoir effect. Patent portal vein. Post surgical changes of left nephrectomy and adrenalectomy. No suspicious soft tissue lesion in the postsurgical bed. The spleen, right adrenal gland, and pancreas are normal. Normal enhancement of the right kidney with no suspicious exophytic lesion or hydronephrosis. Urinary bladder is not distended. Multiple uterine fibroids are seen. There is colonic diverticulosis. No evidence of bowel obstruction. No free fluid or free air. Abdominal aorta is normal in course and caliber. No abdominal or pelvic enlarged lymph nodes. 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 COMPARISON: 03/06/2024 FINDINGS: Chest: There is no axillary, supraclavicular, mediastinal or hilar enlarged lymph nodes. Normal heart size is normal. There is no pericardial effusion. Atherosclerotic outstation of the coronary arteries are seen. There is a small hiatal hernia. Multiple pulmonary nodules compatible with the patient's known metastatic disease are not significantly changed compared to the prior examination. For example, a 2.0 cm lesion in the superior left lower lobe (series 3 image 63). No new pulmonary lesion is seen. No pleural effusion or pneumothorax. ABDOMEN/PELVIS: No suspicious hepatic lesion. There is mild heterogeneous appearance of the right hemiliver is more conspicuous from prior exam and favored to represent vascular shunting. Status post cholecystectomy. Mild extrahepatic biliary ductal dilatation in the setting of prior cholecystectomy likely represents reservoir effect. Patent portal vein. Post surgical changes of left nephrectomy and adrenalectomy. No suspicious soft tissue lesion in the postsurgical bed. The spleen, right adrenal gland, and pancreas are normal. Normal enhancement of the right kidney with no suspicious exophytic lesion or hydronephrosis. Urinary bladder is not distended. Multiple uterine fibroids are seen. There is colonic diverticulosis. No evidence of bowel obstruction. No free fluid or free air. Abdominal aorta is normal in course and caliber. No abdominal or pelvic enlarged lymph nodes. IMPRESSION: 1. Stable pulmonary metastatic disease. 2. No evidence of recurrent or metastatic disease in the abdomen or pelvis. Electronically signed by: Alix Coello M.D. Lorene Prince MD IMG CT PROCEDURES Autumn l Result * (ABNORMAL) POCT creatinine (05/02/2024 9:26 AM ICE SCULPTOR) Creatinine POC 1.2(H) 0.6 - 1.1 mg/dL Blood 05/02/2024 9:26 AM ICE SCULPTOR 05/02/2024 9:26 AM ICE SCULPTOR Lorene Prince MD LAB POCT ORDERABLES - DEVICE Final Result [facility] [place] [address] * SCREENING MAMMOGRAM BILATERAL W MONICA (10/04/2023 8:05 AM CDT) Anatomical Region Laterality Modality Breast Bilateral Mammography Narrative 10/04/2023 2:35 PM CDT Mammogram Technique: Bilateral Digital Breast Tomosynthesis, Bilateral C-view 2D Screening mammogram. Views obtained: bilateral craniocaudal and bilateral mediolateral oblique. Computer Aided Detection was performed. Mammogram Findings: The present examination has been compared to prior imaging studies performed at [facility] on 09/15/2011, 01/27/2014 and 10/31/2019, and at [facility] on 09/19/2022. There are scattered areas of fibroglandular density. There is no suspicious abnormality in either breast. There are no significant changes from the prior study. Impression: There is no mammographic evidence of malignancy. Annual screening mammography is recommended. OVERALL FINAL ASSESSMENT: BI-RADS CATEGORY 1: Negative. Procedure Note Michelle Stevens MD - 10/04/2023 Mammogram Technique: Bilateral Digital Breast Tomosynthesis, Bilateral C-view 2D Screening mammogram. Views obtained: bilateral craniocaudal and bilateral mediolateral oblique. Computer Aided Detection was performed. Mammogram Findings: The present examination has been compared to prior imaging studies performed at [facility] on 09/15/2011, 01/27/2014 and 10/31/2019, and at [facility] on 09/19/2022. There are scattered areas of fibroglandular density. There is no suspicious abnormality in either breast. There are no significant changes from the prior study. Impression: There is no mammographic evidence of malignancy. Annual screening mammography is recommended. OVERALL FINAL ASSESSMENT: BI-RADS CATEGORY 1: Negative. 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 IMPRESSION: Normal bone mass. REFERENCE: Bone mineral density: T-Score: Normal (T-score above or = -1.0) Low bone mass (T-score between -1.0 and -2.5) replaces the previously used term osteopenia Osteoporosis (T-score = or below -2.5) Z-Score: Within the expected range for age (Z-score above -2.0) Below the expected range for age (Z-score is -2.0 or below) Please see below follow up recommendations. Medical evaluation for secondary causes of low bone mineral density may be appropriate. FRAX is a World Health Organization validated fracture risk assessment tool that calculates a person's 10 year probability of a major osteoporosis related fracture and hip fracture. According to the National Osteoporosis Foundation guidelines, postmenopausal women and men age 50 or older with low bone mass and a 10 year probability of a major osteoporosis related fracture = or greater than 20% or a 10 year probability of a hip fracture = or greater than 3% should be considered for pharmacological treatment for the prevention of osteoporosis. For further information, including treatment recommendations, please refer to the 2019 ISCD Official Positions (http://www.iscd.org) and the NOF's Clinician's Guide to Prevention and Treatment of Osteoporosis (http://www.nof.org/professionals/clinical-guidelines) THIS IS AN ELECTRONICALLY VERIFIED FINAL REPORT 07/26/2023 7:16 PM - Electronically signed by Solitario Paul M.D. 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 IMPRESSION: Normal bone mass. REFERENCE: Bone mineral density: T-Score: Normal (T-score above or = -1.0) Low bone mass (T-score between -1.0 and -2.5) replaces thepreviously used term osteopenia Osteoporosis (T-score = or below -2.5) Z-Score: Within the expected range for age (Z-score above -2.0) Below the expected range for age (Z-score is -2.0 or below) Please see below follow up recommendations. Medical evaluation forsecondary causes of low bone mineral density may be appropriate. FRAX is a World Health Organization validated fracture risk assessmenttool that calculates a person's 10 year probability of a major osteoporosisrelated fracture and hip fracture. According to the National OsteoporosisFoundation guidelines, postmenopausal women and men age 50 or older with low bonemass and a 10 year probability of a major osteoporosis related fracture = or greater than 20% or a 10 year probability of a hip fracture = or greaterthan 3% should be considered for pharmacological treatment for the preventionof osteoporosis. For further information, including treatment recommendations, please referto the 2019 ISCD Official Positions (http://www.iscd.org) and the NOF's Clinician's Guide to Prevention and Treatment of Osteoporosis (http://www.nof.org/professionals/clinical-guidelines) THIS IS AN ELECTRONICALLY VERIFIED FINAL REPORT 07/26/2023 7:16 PM - Electronically signed by Solitario Paul M.D. MF: [email or web address] Report ID: [id number] Reading Location: [place] [address] Akhil Russo MD IMG DXA PROCEDURES Final Re sult * High Risk HPV DNA Detection with Genotyping (Molecular component) (04/11/2023 1:41 PM ICE SCULPTOR) HPV HR 16 Not Detected Not Detected [facility] Comment:Testing performed by : [facility], [address] [place]., [address] HPV HR 18 Not Detected Not Detected [facility] Comment:Testing performed by : [facility], [address] [facility], [address] HPV HR Non 16/18 Not Detected Not Detected [facility] Comment: Interpretive Data Nucleic acid amplification for detection of high-risk Human Papilloma virus (HPV) is performed by the Itzel Elva 6800 HPV test. This assay specifically detects HPV-16 and HPV-18 genotypes. The following HPV genotypes are detected as high-risk HPV: HPV-31, 33, 35, ,39, 45, 51, 52, 56, 58, 59, 66, and 68. This assay has been approved by the [place] Food and Drug Administration for detection of HPV in cervical specimens collected by a physician using an endocervical brush/spatula or cervical broom and placed in the ThinPrep Pap Test PreservCyt collection containers. The performance characteristics of this test have been verified by the [facility] Molecular Infectious Disease laboratory. Correlate with separately reported cytology results, as applicable. Interpretive data last revised 22 Testing performed by: [facility], [address] [place]., [address] Endocervical 04/11/2023 1:41 PM ICE SCULPTOR 04/12/2023 3:01 PM ICE SCULPTOR Akhil Russo MD LAB BODY FLUIDS AND STOOLS ORDERABLES Final Result [facility] [address] [facility] Department [place] [address] * CT Colonography Diagnostic W Contrast (07/22/2021 2:35 PM CDT) Anatomical Region Laterality Modality Body N/A Computed Tomogra phy 07/22/2021 3:02 PM CDT Impressions 07/22/2021 3:43 PM CDT C1: Normal colon, continue routine screening. E2: Changes of left nephrectomy, adrenalectomy. Dictated by: Monroe aHwk M.D. The radiology attending physician has personally reviewed this study, and had reviewed and/or edited this written report and agrees with it. Electronically signed by: Stephanie Barajas M.D. 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 Colonoscopy 07/20/2021 up to the proximal ascending colon. TECHNIQUE: Transaxial computed tomographic images through the abdomen and pelvis were obtained without intravenous contrast after insufflation of the colon with CO2 through a rectal catheter. Images were obtained in the supine and right lateral decubitus positions. COMPARISON: Comparison CT from 07/04/2021. FINDINGS: The following findings are reported according to the CT Colonography Reporting and Data System (C-RADS) from Radiology 2005; 236:3-9. Colonic preparation and distention: adequate. All six segments of the colon are adequately distended on both supine and right lateral decubitus views. Colonic findings: There is colonic diverticulosis No polyps greater than 5 mm are detected. Extracolonic findings: This CT examination is performed without intravenous contrast and with a low dose technique optimized for evaluation of the colon. Changes of left nephrectomy, adrenalectomy in the setting of known renal carcinoma. Cholecystectomy clips noted. Enlarged fibroid uterus again seen. Within the limits of this technique, no other significant extracolonic findings are present. 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 Colonoscopy 07/20/2021 up to the proximal ascending colon. TECHNIQUE: Transaxial computed tomographic images through the abdomen and pelvis were obtained without intravenous contrast after insufflation of the colon with CO2 through a rectal catheter. Images were obtained in the supine and right lateral decubitus positions. COMPARISON: Comparison CT from 07/04/2021. FINDINGS: The following findings are reported according to the CT Colonography Reporting and Data System (C-RADS) from Radiology 2005; 236:3-9. Colonic preparation and distention: adequate. All six segments of the colon are adequately distended on both supine and right lateral decubitus views. Colonic findings: There is colonic diverticulosis No polyps greater than 5 mm are detected. Extracolonic findings: This CT examination is performed without intravenous contrast and with a low dose technique optimized for evaluation of the colon. Changes of left nephrectomy, adrenalectomy in the setting of known renal carcinoma. Cholecystectomy clips noted. Enlarged fibroid uterus again seen. Within the limits of this technique, no other significant extracolonic findings are present. IMPRESSION: C1: Normal colon, continue routine screening. E2: Changes of left nephrectomy, adrenalectomy. Dictated by: Monroe Hawk M.D. The radiology attending physician has personally reviewed this study, and had reviewed and/or edited this written report and agrees with it. Electronically signed by: Stephanie Barajas M.D. us Lorene Prince MD IMG CT PROCEDURES Autumn l Result * Hepatitis C antibody (01/03/2021 12:02 PM CDT) Hep C Ab Nonreactive Nonreactive [facility] Comment:Antibodies to HCV no t detected. Does NOT exclude the possibility of recent exposure to HCV. Blood 01/03/2021 12:0 2 PM CDT 01/03/2021 12:16 PM CDT us Carmen Fish [facility] LAB MICROBIOLOGY - GENER AL ORDERABLES Edited Result - [facility] [place] [address] from Last 3 Months or Most Recently Relevant to Health Maintenance Insurance [facility] MEDICARE Address: [address] [address] [place] [address] MEDICARE SOLUTIONS [facility] MEDICARE Address: [address] [address] [place] [address] MEDICARE SOLUTIONS MEDICARE SOLUTIONS MEDICARE SOLUTIONS Advance Directives For more information, please contact: [phone] * Full Code (Latest Code Status on File) Date Activated Date Inactivated Comments 09/01/2023 8:54 PM 09/04/2023 4:11 PM * Full Code Date Activated Date Inactivated Comments 04/04/2022 6:21 PM 04/08/2022 5:40 PM * Full Code Date Activated Date Inactivated Comments 09/15/2021 9:14 AM 09/16/2021 9:20 PM * Full Code Date Activated Date Inactivated Comments 07/18/2021 10:32 PM 07/23/2021 7:37 PM * Full Code Date Activated Date Inactivated Comments 02/18/2021 5:18 PM 02/21/2021 4:10 PM Care Teams Melangeur Operator Relationship Specialty Start Date End Date Akhil Russo MD [address] [place] [address] PCP - General Family Medicine 11/29/21 Lorene Prince MD Medical Oncologist/Hematologis t Medical Oncology 01/31/21 Mili Mcleod NP [address] [place] [address] Nurse Practitioner Cardiovascular Disease 07/18/22 [place] [address] [place] [id number] Referring Physician Endocrinology Diabetes & Metabolism 08/20/23
--- OUTSIDE RECORDS SUMMARY | 2024-07-12 03:00 | XMS_ITS | Encounter Summary ---
Author Organization [facility] Address [address] [place] [address] Phone Care Team Providers Care Care Transition Mgr Name Role Phone Lorene Prince MD Unavailable [phone] Akhil Russo MD Primary Care Provider [phone] RaterMili NP Unavailable Guillermina Stokes MD Unavailable Encounter Details Date Type Department Care Team (Late st Contact Info) Description 10/10/2022 Telephone [facility]) - 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 difficile suspected 08/22/2023 08/22/202308/22 3:06 AM CDT C. difficile suspected 09/01/2023 09/02/202309/04 3:05 AM CDT Norovirus suspected 09/01/2023 09/02/2023 09/05/19 3:05 AM CDT documented as of this encounter Care Teams Care Transition Mgr Relationship Specialty Start Date End Date Akhil Russo MD [address] [place] [address] PCP - General Family Medicine 11/29/21 Lorene Prince MD Medical Oncologist/Hematologis t Medical Oncology 01/31/21 Mili Mcleod NP [address] [place] [address] Nurse Practitioner Cardiovascular Disease 07/18/22 Guillermina Stokes MD [facility] [address] [place] [address] Referring Physician Endocrinology Diabetes & Metabolism 08/20/23 documented as of this encounter
--- OUTSIDE RECORDS SUMMARY | 2024-07-12 03:00 | XMS_ITS | Encounter Summary ---
Author Organization [facility] Healthcare Address [address] [place] [address] Care Team Providers Care Transport Pilot Name Role Phone Fide Contreras MD Primary Care Provider Lorene Prince MD Unavailable [phone] Vinod Bird MD Unavailable Sandra Prieto Primary Care Provider [phone]- [phone] Akhil Russo MD Primary Care Provider [phone] Mili Mcleod NP Unavailable Guillermina Stokes MD Unavailable Encounter Details Date Type Department Care Team (Late st Contact Info) Description 01/04/2021 Telephone [facility] [address] [place], [place] [id number] Lorene Prince MD [address] [facility] [address] [place] [address] Social History Tobacco Use Types Packs/Day Years Used Date Smoking Tobacco: Never Smokeless Tobacco: Never Alcohol Use Standard Drinks/Week Comments Never 0 (1 standard drink = 0.6 oz pur e alcohol) AUDIT-C Answer Date Recorded Frequency of Alcohol Consumption Never 01/03/2019 Average Number of Drinks Not on file 019 Frequency of Binge Drinking Not on file 12/07 Comments No Sex and Gender Information Value Date Recorded Sex Assigned at Not on file 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 difficile suspected 07/05/2023 07/05/2023 10:37 PM ACCOUNTS PAYABLE ASSISTANT COVID: Suspected 08/22/2023 08/22/2023 08/22/2023 5:03 PM CDT C. difficile suspected 08/22/2023 08/22/202308/22 3:06 AM CDT C. difficile suspected 09/01/2023 09/02/202309/04 3:05 AM CDT Norovirus suspected 09/01/2023 09/02/2023 09/05/19 3:05 AM CDT documented as of this encounter Care Teams Transport Pilot Relationship Specialty Start Date End Date Fide Contreras MD [address] [place] [address] PCP - General Family Medicine 01/01/19 11/15/21 Sandra Prieto PA [address] [place] [address] PCP - General Internal Medicine 11/16/21 11/28/21 Akhil Russo MD [address] [place] [address] PCP - General Family Medicine 11/29/21 Lorene Prince MD [address] [place] [address] Medical Oncologist/Hematologis t Medical Oncology 01/31/21 Vinod Bird MD [address] [place] [address] Consulting Physician Cardiovascular Disease 03/23/21 Mili Mcleod NP [address] [place] [address] Nurse Practitioner Cardiovascular Disease 07/18/22 Guillermina Stokes MD [address] [facility] [address] [address] Referring Physician Endocrinology Diabetes & Metabolism 08/20/23 documented as of this encounter
--- OUTSIDE RECORDS SUMMARY | 2024-07-12 03:00 | XMS_ITS | Referral Summary ---
Author Organization [facility] Address [address] [place] [address] Care Team Providers Care Ammonia Print Operator Name Role Phone Lorene Prince MD Unavailable [phone] Akhil Russo MD Primary Care Provider [phone] Mili Mcleod NP Unavailable Guillermina Stokes MD Unavailable [phone] Encounters Date Type Department Care Team Description 06/20/2024 11:30 AM TREATMENT PLANT MECHANIC Therapy [facility] Occupational Therapy [address] [facility] 6th [place] [address] [place] [address] Shante Roberts OT Chronic pain of right thumb (Primary Dx) 06/16/2024 11:45 AM TREATMENT PLANT MECHANIC Lab [facility] - Lab Collection [address] [place] [address] Floor 5 [place] [address] Malignant neoplasm of left kidney (CMS/HCC) (HCC) 06/16/2024 12:00 PM TREATMENT PLANT MECHANIC Lab [facility] Oncology Lab [address] [place] [address] Floor 5 [place] [address] Malignant neoplasm of left kidney (CMS/HCC) (HCC) 06/16/2024 1:00 PM TREATMENT PLANT MECHANIC Office Visit [facility] Oncology [address] [place] [phone] Lorene Prince MD Malignant neoplasm of left kidney (CMS/HCC) (HCC) (Primary Dx); Malignant neoplasm of left kidney (HCC) 06/04/2024 Orders Only HEIN OS HAND/WRIST Scanning, Provider 06/04/2024 Plan of Care Documentation [facility] Occupational Therapy [address] [facility] 1st Floor [address] [place] [address] 06/04/2024 1:10 PM TREATMENT PLANT MECHANIC Therapy [facility] Occupational Therapy [address] [facility] 1st Floor [address] [place] [address] Shante Roberts OT Chronic pain of right thumb (Primary Dx) 06/04/2024 1:30 PM TREATMENT PLANT MECHANIC Office Visit [facility] Orthopaedic Surgery [address] [facility] 2nd Floor [address] [place] [address] Govind Yee MD Arthritis of carpometacarpal (CMC) joint of right thumb (Primary Dx); Malignant neoplasm of left kidney (CMS/HCC) (HCC) 06/02/2024 Documentation [facility] [place] [facility] [address] [place] [address] Floor 6 [place] [address] Barbi Lynn [facility] 5 05/20/2024 1:20 PM TREATMENT PLANT MECH[employer]IC Procedure visit [facility] Otolaryngology [facility] [address] [place] [address] Mixed conductive and sensorineural hearing loss of left ear with restricted hearing of right ear (Primary Dx); Sensorineural hearing loss (SNHL) of right ear with restricted hearing of left ear 05/20/2024 1:20 PM TREATMENT PLANT MECHANIC Office Visit [facility] Otolaryngology [facility] [address] [place] [address] Goyo Salinas MD Chronic diffuse otitis externa of left ear (Primary Dx); 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 05/13/2024 Telephone [facility] Oncology [address] [place] [address] 5 [place] [address] Lorene Prince MD 05/13/2024 Telephone [facility] Oncology [address] [place] [address] 5 [place] [phone] Lorene Prince MD 05/09/2024 Telephone [facility] Oncology [address] [place] [address] Floor 5 [place] [address] Lorene Prince MD 05/08/2024 Telephone [facility] Oncology [address] [place] [address] Floor 5 [place] [address] Lorene Prince MD 05/08/2024 Telephone [facility] Oncology [address] [facility] [address] [place] [address] Pam Vance, RMA Ear Drainage 05/08/2024 Telephone [facility] Oncology [address] [place] [address] Floor 5 [place] [address] Lorene Prince MD 05/05/2024 9:15 AM TREATMENT PLANT MECHANIC Lab [facility] - Lab Collection [address] [place] [address] Floor 5 [place] [address] Malignant neoplasm of left kidney (CMS/HCC) (HCC) 05/05/2024 10:30 AM TREATMENT PLANT MECHANIC Office Visit [facility] Oncology [address] [place] [address] Floor 5 [place] [address] Lorene Prince MD Malignant neoplasm of left kidney (CMS/HCC) (HCC) (Primary Dx); Malignant neoplasm of left kidney (HCC) 05/05/2024 9:30 AM TREATMENT PLANT MECHANIC Lab [facility] Oncology Lab [address] [place] [address] Floor 5 [place] [address] Malignant neoplasm of left kidney (CMS/HCC) (HCC) 05/02/2024 Telephone [facility] Oncology [address] [place] [address] Floor 5 [place] [address] Lorene Prince MD 05/02/2024 9:14 AM TREATMENT PLANT MECHANIC - 05/02/2024 11:59 PM TREATMENT PLANT MECHANIC Hospital Encounter [facility] [place] - [place] [address] [facility] [place] Floor 8 [place] [address] Malignant neoplasm of left kidney (CMS/HCC) (HCC) Discharge Disposition: Discharge to home or self care 04/23/2024 Telephone [facility] Oncology [address] [place] [address] Floor 6 [place] [address] Lorene Prince MD 04/23/2024 Telephone [facility] Oncology [address] [facility] Floor 6 [place] [address] Lorene Prince MD 04/22/2024 11:30 AM TREATMENT PLANT MECHANIC Office Visit [facility] Cardiology [address] [facility] Medical Office Building 3 [address] [place] [address] Monroe Pelletier MD Primary hypertension (Primary Dx); Mixed hyperlipidemia; Stage 3a chronic kidney disease (HCC); MARAVILLA (dyspnea on exertion); Malignant neoplasm of left kidney (HCC); 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 60 capsule 09/17/19 24 2024 Active everolimus (AFINITOR) 5 mg tabletIndications :metastatic renal cell carcinoma Take 1 tablet (5 mg total) by mouth daily Swallow whole with a glass of water. 28 tablet 09/17/19 24 Active multivitamin tabletIndications :Vitamin Deficiency [...] resolve. Assessment & Plan (04/05/2022 12:32 AM TREATMENT PLANT MECHANIC): - Pt c/o dehydration and lightheadedness on exam - CTH was unremarkable for any acute intracranial abnormalities. No orthostatis noted on exam - c/w LR @ 75 ml/hr Bacteriuria 04/05/2022 Assessment & Plan (04/05/2022 12:39 AM TREATMENT PLANT MECHANIC): - UA was + for LE and trace Bacteria, given immunocompromised status, will start on Cefepime IV 2g q12h pending cultures - Taper coverage based on c&s Headache 04/05/2022 Assessment & Plan (04/05/2022 12:40 AM TREATMENT PLANT MECHANIC): - Pt c/o intermittent headaches and lightheadedness on exam. Given hx of mets CTH was obtained which was unremarkable for any acute intracranial abnormalities. Seasonal allergies 04/05/2022 Assessment & Plan (04/05/2022 12:40 AM TREATMENT PLANT MECHANIC): - c/w Flonase nasal spray MARAVILLA (dyspnea on exertion) 04/05/2022 Assessment & Plan (04/05/2022 12:48 AM TREATMENT PLANT MECHANIC): - Pt c/o dyspnea on exertion , can likely be related to metastatic disease progression - EKG was unremarkable on admission while Trop and BNP were also WNL - TTE donw previously in 12/2020 was remarkable for LVEf of 54% with limited study - Plan to repeat TTE Diarrhea in adult patient 04/04/2022 Assessment & Plan (04/05/2022 12:37 AM TREATMENT PLANT MECHANIC): - Pt presented with worsening NB , [...] 11/30/2021 Assessment & Plan (03/19/2024 10:38 AM TREATMENT PLANT MECHANIC): A(n) yearly Medicare Annual Wellness Visit has been performed today. Jaliyn Condon is not up to date on [...] OK Assessment & Plan (07/08/2022 12:17 PM TREATMENT PLANT MECHANIC): TSH 0.17 uIU/ml, normal T4 Thyroid dosing has been adjusted, awaiting repeat Assessment & Plan (04/05/2022 12:34 AM TREATMENT PLANT MECHANIC): - c/w Synthroid 100 mcg po qam [...] zoloft Assessment & Plan (04/05/2022 12:37 AM TREATMENT PLANT MECHANIC): - c/w Sertraline 25 mg po every [...] meningitis -Total spine MRI was ordered [facility] and completed --> Posterior T12 Vertebral lesion [...] meningitis -Total spine MRI was ordered in [facility] and completed, read pending -Will start scheduled [...] 02/18/2021 Assessment & Plan (04/05/2022 12:34 AM TREATMENT PLANT MECHANIC): - Pt c/o worsening SOB which can [...] dehydration Assessment & Plan (07/08/2022 12:18 PM TREATMENT PLANT MECHANIC): Renal function decreased, GFR at 42 Creatinine 1.39 Advised on hydration Assessment & Plan (04/05/2022 12:34 AM TREATMENT PLANT MECHANIC): - c/w Toprol XL 50 mg po [...] recurrence. Assessment & Plan (04/05/2022 12:31 AM TREATMENT PLANT MECHANIC): - Pt was diagnosed with left renal [...] 07/18/2023 Assessment & Plan (04/05/2022 12:39 AM TREATMENT PLANT MECHANIC): - Pt has documented hx of PE, has been off AC for over 3 months Total perforation of left tympanic membrane 09/12/2021 02/10/2022 Overview (09/12/2021): Added automatically from request for surgery [id number] Left renal mass 01/03/2019 01/24/2019 Overview (01/03/2019): Added automatically from request for surgery [id number] Immunizations Immunization Administration Dates Next Due Influenza, Quadrivalent, Catie l Culture-based MDCK, Preservative Free, Antibiotic Free, Intramuscular 02/07/2021 Influenza, Trivalent, Recomb inant, Egg Free, Preservative Free, Antibiotic Free, IM (FLUBLOK) 01/14/2024 Influenza, Unspecified 01/17/2023,2021(Deferred: Allergy) Pfizer SARS-CoV-2 Monovalent Vaccination (12+ Yrs) PURPLE 09/27/2021,08/31/2020,08/09/2020 Pneumococcal Conjugate Pcv20 01/17/2023 RSV Vaccine, Pref, Recombina nt, Subunit, Adjuvanted, PF, IM (Arexvy) 01/29/2023 Tdap 08/23/2022,11/30/2021 ZOSTER Recombinant 01/29/2023,07/05/2022 Social History Tobacco Use Types Packs/Day Years Used Date Smoking Tobacco: Never Passive Smoke Exposure: Past Smokeless Tobacco: Never Tobacco Cessation:Counseling Given: Not Answered Alcohol Use Standard Drinks/Week Comments Never 0 (1 standard drink = 0.6 oz pur e alcohol) [facility] Utilities Answer Date Recorded In the past 12 months has e [employer], gas, oil, or water [employer] threatened to shut off services in your [...] How often do you attend chur or worship services? Patient unable to answer 09/04/2023 Do you belong to any clubs o r organizations such as sikh groups, unions, fraternal or athletic groups, or [...] answer 09/04/2023 Housing Stability Vital Sign Answer Farbizio e Recorded In the last 12 months, [...] on file Legal Sex Female 8:31 AM TREATMENT PLANT MECHANIC Gender Identity Female 12/08/2020 1:45 PM CDT Sexual Orientation Straight 01/22/2019 10 :49 AM CDT Last Filed Vital Signs Vital Sign Reading Time Taken Comments Blood Pressure 132/84 06/16/2024 12:41 PM TREATMENT PLANT MECHANIC Pulse 93 06/16/2024 12:41 PM TREATMENT PLANT MECHANIC Temperature 36.3 C (97.3 F) 06/16/2024 12:41 PM TREATMENT PLANT MECHANIC Respiratory Rate 17 06/16/2024 12:41 PM TREATMENT PLANT MECHANIC Oxygen Saturation 97% 06/16/2024 12:41 PM TREATMENT PLANT MECHANIC Inhaled Oxygen Concentration - - Weight 73.9 kg (163 lb) 06/16/2024 12:41 PM TREATMENT PLANT MECHANIC Height 160 cm (5' 3 ) 06/16/2024 12:41 PM TREATMENT PLANT MECHANIC Body Mass Index 28.87 06/16/2024 12:41 PM TREATMENT PLANT MECHANIC Plan of Treatment Not on file Procedures Procedure Name Priority Date/Time Associated Diagnosis Comments PROTEIN / CREATININE RATIO, URINE, RANDOM Routine 06/16/2024 12:05 PM TREATMENT PLANT MECHANIC Malignant neoplasm of left kidney (CMS/HCC) (HCC) EGFR Routine 06/16/2024 11:52 AM TREATMENT PLANT MECHANIC Malignant neoplasm of left kidney (HCC) DIFFERENTIAL AUTO Routine 06/16/2024 11:52 AM TREATMENT PLANT MECHANIC Malignant neoplasm of left kidney (HCC) THYROID FUNCTION CASCADE Routine 06/16/2024 11:52 AM TREATMENT PLANT MECHANIC Malignant neoplasm of left kidney (CMS/HCC) (HCC) CBC WITH AUTO DIFFERENTIAL Routine 06/16/2024 11:52 AM TREATMENT PLANT MECHANIC Malignant neoplasm of left kidney (CMS/HCC) (HCC) COMPREHENSIVE METABOLIC PANEL Routine 06/16/2024 11:52 AM TREATMENT PLANT MECHANIC Malignant neoplasm of left kidney (CMS/HCC) (HCC) LIPID PANEL Routine 06/16/2024 11:52 AM TREATMENT PLANT MECHANIC Malignant neoplasm of left kidney (CMS/HCC) (HCC) CO ARTHROCENTESIS ASPIR&/INJ SMALL JT/BURSA W/O US Routine 06/04/2024 1:30 PM TREATMENT PLANT MECHANIC Arthritis of carpometacarpal (CMC) joint of right thumb SCAN - RADIOLOGY/IMAGING 06/04/2024 AUDBASE RESULTS 05/20/2024 1:27 PM TREATMENT PLANT MECHANIC PROTEIN / CREATININE RATIO, URINE, RANDOM Routine 05/05/2024 9:29 AM TREATMENT PLANT MECHANIC Malignant neoplasm of left kidney (CMS/HCC) (HCC) EGFR Routine 05/05/2024 9:18 AM TREATMENT PLANT MECHANIC Malignant neoplasm of left kidney (HCC) DIFFERENTIAL AUTO Routine 05/05/2024 9:1 8 AM TREATMENT PLANT MECHANIC Malignant neoplasm of left kidney (HCC) THYROID FUNCTION CASCADE Routine 05/05/2024 9:18 AM TREATMENT PLANT MECHANIC Malignant neoplasm of left kidney (CMS/HCC) (HCC) CBC WITH AUTO DIFFERENTIAL Routine 05/05/2024 9:18 AM TREATMENT PLANT MECHANIC Malignant neoplasm of left kidney (CMS/HCC) (HCC) COMPREHENSIVE METABOLIC PANEL Routine 05/05/2024 9:18 AM TREATMENT PLANT MECHANIC Malignant neoplasm of left kidney (CMS/HCC) (HCC) LIPID PANEL Routine 05/05/2024 9:18 AM TREATMENT PLANT MECHANIC Malignant neoplasm of left kidney (CMS/HCC) (HCC) CT CHEST ABDOMEN PELVIS W CONTRAST Schedule Routine, Read Routine (OP Routine) 05/02/2024 9:47 AM TREATMENT PLANT MECHANIC Malignant neoplasm of left kidney (CMS/HCC) (HCC) POCT CREATININE - DEVICE Routine 05/02/2024 9:26 AM TREATMENT PLANT MECHANIC SCREENING MAMMOGRAM BILATERAL W MONICA Schedule Routine, Read Routine (OP Routine) 10/04/2023 8:05 AM CDT Screening mammogram for breast cancer DEXA AXIAL SKELETON BONE DENSITY 1 OR MORE SITES Schedule Routine, Read Routine (OP Routine) 07/26/2023 8:08 AM CDT Screening for osteoporosis FDC (current) use of immunomodulator HIGH RISK HPV DNA DETECTION WITH GENOTYPING Routine 04/11/2023 1:41 PM TREATMENT PLANT MECHANIC CT VIRTUAL COLONOSCOPY DIAGNOSTIC W CONTRAST IP Routine 07/22/2021 2:35 PM CDT HEPATITIS C ANTIBODY Routine 01/03/2021 12:02 PM CDT Malignant neoplasm of left kidney (HCC) from Last 3 Months or Most Recently Relevant to Health Maintenance Results * Protein / creatinine ratio, urine, random (06/16/2024 12:05 PM TREATMENT PLANT MECHANIC) Protein, ur, quant 7.6 mg/dL Comment: Interpretive Data No reference range established. Current interpretive data was last revised 2018. Creatinine Ur 79.8 mg/dL [facility] Comment: Interpretive Data No reference range established. Current interpretive data was last revised 2018. Protein/creatinin e ratio 95.2 0.0 - 180.0 mg/g CR [facility] Urine 06/16/2024 12:0 5 PM TREATMENT PLANT MECHANIC 06/16/2024 12:44 PM TREATMENT PLANT MECHANIC us Lorene Prince MD LAB URINE ORDERABLES F inal Result [facility] Department [place] [address] * (ABNORMAL) eGFR (06/16/2024 11:52 AM TREATMENT PLANT MECHANIC) Pathologist [facility] eGFR 52(L) >=60 mL/min/1. 73 m2 Comment: [...] reviewed 2021. Blood 06/16/2024 11:5 2 AM TREATMENT PLANT MECHANIC 06/16/2024 12:05 PM TREATMENT PLANT MECHANIC us Lorene Prince MD LAB BLOOD ORDERABLES F inal Result [facility] Department [place] [address] * Differential, auto (06/16/2024 11:52 AM TREATMENT PLANT MECHANIC) Pathologist [facility] Neutrophil abs 3.4 1.5 - 6.5 K/cumm Comment:Testing performed by : [facility], [address] [place] [phone] Lymphocyte abs 2.1 0.8 - 3.3 K/cumm [facility] Comment:Testing performed by : [facility], [address] [place] [phone] Monocyte abs 0.4 0.2 - 0.8 K/cumm [facility] Comment:Testing performed by : [facility], [address] [place] [phone] Eosinophil abs 0.1 0.0 - 0.5 K/cumm [facility] Comment:Testing performed by : [facility], [address] [place] [phone] Basophil abs 0.1 0.0 - 0.1 K/cumm [facility] Comment:Testing performed by : [facility], [address] [place] [phone] Neutrophil pct 56.2 % [facility] Comment: Interpretive Data Percent cell count reference ranges are not reported, since discordance with absolute values may lead to misinterpretation of CBC data. Current Interpretive Data was last revised on 2017. Testing performed by: [facility], [address] [place] [phone] Lymphocyte pct 34.4 % [facility] Comment: Interpretive Data Percent cell count reference ranges are not reported, since discordance with absolute values may lead to misinterpretation of CBC data. Current Interpretive Data was last revised on 2017. Testing performed by: [facility], [address] [place] [phone] Monocyte pct 6.8 % [facility] Comment: Interpretive Data Percent cell count reference ranges are not reported, since discordance with absolute values may lead to misinterpretation of CBC data. Current Interpretive Data was last revised on 2017. Testing performed by: [facility], [address] [place] [phone] Eosinophil pct 1.6 % [facility] Comment: Interpretive Data Percent cell count reference ranges are not reported, since discordance with absolute values may lead to misinterpretation of CBC data. Current Interpretive Data was last revised on 2017. Testing performed by: [facility], [address] [place] [phone] Basophil pct 1.0 % [facility] Comment: Interpretive Data Percent cell count reference ranges are not reported, since discordance with absolute values may lead to misinterpretation of CBC data. Current Interpretive Data was last revised on 2017. Testing performed by: [facility], [address] [place] [phone] Blood 06/16/2024 11:5 2 AM TREATMENT PLANT MECHANIC 06/16/2024 12:03 PM TREATMENT PLANT MECHANIC Lorene Prince MD LAB BLOOD ORDERABLES F inal Result Performing Organization Address City/[facility] Co de Phone Number [facility] Department [place] [address] * Thyroid Function Butler (06/16/2024 11:52 AM TREATMENT PLANT MECHANIC) TSH 0.66 0.30 - 4.20 mcIUnit/mL Blood 06/16/2024 11:5 2 AM TREATMENT PLANT MECHANIC 06/16/2024 12:05 PM TREATMENT PLANT MECHANIC Lorene Prince MD LAB BLOOD ORDERABLES F inal Result Performing Organization Address [facility] Co de Phone Number [facility] Department [place] [address] * (ABNORMAL) CBC with auto differential (06/16/2024 11:52 AM TREATMENT PLANT MECHANIC) WBC 6.0 3.8 - 9.9 K/cumm Comment:Testing performed by : [facility], [address] [place] [phone] Hgb 12.1 11.9 - 15.5 g/dL [facility] Comment:Testing performed by : [facility], [address] [place] [phone] Hct 38.9 35.6 - 45.5 % [facility] Comment:Testing performed by : [facility], [address] [place] [phone] Plt 226 150 - 400 K/cumm [facility] Comment:Testing performed by : [facility], [address] [place] [phone] MPV 9.0 6.8 - 10.4 fL [facility] Comment:Testing performed by : [facility], [address] [place] [address] RBC 5.17 3.90 - 5.20 M/cumm [facility] Comment:Testing performed by : [facility], [address] [place] [address] MCV 75.3(L) 81.3 - 96.4 fL [facility] Comment:Testing performed by : [facility], [address] [place] [address] MCH 23.4(L) 27.1 - 33.3 pg [facility] Comment:Testing performed by : [facility], [address] [place] [address] MCHC 31.1(L) 32.3 - 35.7 g/dL [facility] Comment:Testing performed by : [facility], [address] [place] [address] RDW CV 18.5(H) 11.1 - 14.9 % [facility] Comment:Testing performed by : [facility], [address] [place] [address] NRBC abs 0.00 0.00 - 0.01 K/cumm [facility] Comment:Testing performed by : [facility], [address] [place] [address] Blood 06/16/2024 11:5 2 AM TREATMENT PLANT MECHANIC 06/16/2024 12:03 PM TREATMENT PLANT MECHANIC us Lorene Prince MD LAB BLOOD ORDERABLES F inal Result [facility] Department [place] [address] * Lipid panel (06/16/2024 11:52 AM TREATMENT PLANT MECHANIC) Cholesterol 156 30 - 199 mg/dL Comment: [...] revised on 2017. Triglycerides 108 <=149 mg/dL [facility] Comment: Interpretive Data Ages < or = [...] revised on 2017. HDL 60 >=40 mg/dL [facility] Comment: Interpretive Data Ages < or = [...] on 2017. LDL, calculated 77 <=129 mg/dL [facility] Comment: Interpretive Data Ages < or = [...] Momo Sinha et al. NAOMY Cardiol. 2019September 04;5(5):540-548. doi: 10.1001/jamacardio.2020.0013 Current Interpretive Data was last revised on 2023. Non-HDL Cholesterol 96 mg/dL [facility] Comment: Interpretive Data Ages < or [...] last revised on 2017. Chol/HDL ratio 3 [facility] Blood 06/16/2024 11:5 2 AM TREATMENT PLANT MECHANIC 06/16/2024 12:05 PM TREATMENT PLANT MECHANIC us Lorene Prince MD LAB BLOOD ORDERABLES F inal Result [facility] Department [place] [address] * (ABNORMAL) Comprehensive metabolic panel (06/16/2024 11:52 AM TREATMENT PLANT MECHANIC) Sodium 142 135 - 145 mmol/L Potassium, pl 4.0 3.3 - 4.9 mmol/L [facility] Chloride 105 97 - 110 mmol/L [facility] CO2 30 22 - 32 mmol/L [facility] Anion gap 7 2 - 15 mmol/L [facility] BUN 12 6 - 25 mg/dL [facility] Creatinine 1.17(H) 0.60 - 1.10 mg/dL [facility] Glucose 131 70 - 199 mg/dL [facility] Comment: Interpretive Data Fasting glucose >/= [...] 2022. Calcium 9.4 8.5 - 10.3 mg/dL [facility] Bilirubin, total 0.6 0.1 - 1.2 mg/dL [facility] Protein, pl 7.1 6.5 - 8.5 g/dL [facility] Albumin 3.9 3.5 - 5.0 g/dL [facility] Alk phos 75 40 - 130 Units/L [facility] ALT 22 7 - 45 Units/L [facility] AST 33 10 - 45 Units/L [facility] Blood 06/16/2024 11:5 2 AM TREATMENT PLANT MECHANIC 06/16/2024 12:05 PM TREATMENT PLANT MECHANIC us Lorene Prince MD LAB BLOOD ORDERABLES F inal Result [facility] Department [place] [address] * CO ARTHROCENTESIS ASPIR&/INJ SMALL JT/BURSA W/O US (06/04/2024 1:30 PM TREATMENT PLANT MECHANIC) Narrative Govind Yee MD - 06/04/2024 1:30 PM TREATMENT PLANT MECHANIC Govind Yee MD 06/04/2024 5:59 PM Small [...] Result * AudBase Results (05/20/2024 1:27 PM TREATMENT PLANT MECHANIC) Provider Scanning AUDIOLOGY SERVICES ORDERABLES Final Result * Protein / creatinine ratio, urine, random (05/05/2024 9:29 AM TREATMENT PLANT MECHANIC) Protein, ur, quant 7.2 mg/dL Comment: Interpretive Data No reference range established. Current interpretive data was last revised 2018. Creatinine Ur 72.4 mg/dL [facility] Comment: Interpretive Data No reference range established. Current interpretive data was last revised 2018. Protein/creatinin e ratio 99.4 0.0 - 180.0 mg/g CR [facility] Urine 05/05/2024 9:29 AM TREATMENT PLANT MECHANIC 05/05/2024 9:50 AM TREATMENT PLANT MECHANIC Lorene Prince MD LAB URINE ORDERABLES F inal Result Performing Organization Address City/[facility] Co de Phone Number MOIRA PIPER [facility] Department [place] [address] * (ABNORMAL) eGFR (05/05/2024 9:18 AM TREATMENT PLANT MECHANIC) eGFR 53(L) >=60 mL/min/1. 73 m2 Comment: [...] last reviewed 2021. Blood 05/05/2024 9:18 AM TREATMENT PLANT MECHANIC 05/05/2024 9:22 AM TREATMENT PLANT MECHANIC Lorene Prince MD LAB BLOOD ORDERABLES F inal Result Performing Organization Address City/[facility] Co de Phone Number MOIRA PIPER [facility] Department [place] [address] * Differential, auto (05/05/2024 9:18 AM TREATMENT PLANT MECHANIC) Neutrophil abs 3.3 1.5 - 6.5 K/cumm Comment:Testing performed by : [facility], [address] [place] [phone] Lymphocyte abs 2.7 0.8 - 3.3 K/cumm [facility] Comment:Testing performed by : [facility], [address] [place] [address] Monocyte abs 0.6 0.2 - 0.8 K/cumm [facility] Comment:Testing performed by : [facility], [address] [place] [phone] Eosinophil abs 0.1 0.0 - 0.5 K/cumm [facility] Comment:Testing performed by : [facility], [address] [place] [phone] Basophil abs 0.1 0.0 - 0.1 K/cumm [facility] Comment:Testing performed by : [facility], [address] [place] [phone] Neutrophil pct 48.3 % [facility] Comment: Interpretive Data Percent cell count reference ranges are not reported, since discordance with absolute values may lead to misinterpretation of CBC data. Current Interpretive Data was last revised on 2017. Testing performed by: [facility], [address] [place] [phone] Lymphocyte pct 40.1 % [facility] Comment: Interpretive Data Percent cell count reference ranges are not reported, since discordance with absolute values may lead to misinterpretation of CBC data. Current Interpretive Data was last revised on 2017. Testing performed by: [facility], [address] [place] [phone] Monocyte pct 8.1 % [facility] Comment: Interpretive Data Percent cell count reference ranges are not reported, since discordance with absolute values may lead to misinterpretation of CBC data. Current Interpretive Data was last revised on 2017. Testing performed by: [facility], [address] [place] [phone] Eosinophil pct 1.6 % [facility] Comment: Interpretive Data Percent cell count reference ranges are not reported, since discordance with absolute values may lead to misinterpretation of CBC data. Current Interpretive Data was last revised on 2017. Testing performed by: [facility], [address] [place] [phone] Basophil pct 1.9 % [facility] Comment: Interpretive Data Percent cell count reference ranges are not reported, since discordance with absolute values may lead to misinterpretation of CBC data. Current Interpretive Data was last revised on 2017. Testing performed by: [facility], [address] [place] [phone] Blood 05/05/2024 9:18 AM TREATMENT PLANT MECHANIC 05/05/2024 9:21 AM TREATMENT PLANT MECHANIC Lorene Prince MD LAB BLOOD ORDERABLES F inal Result Performing Organization Address [facility] Co de Phone Number [facility] [place] [address] * Thyroid Function Butler (05/05/2024 9:18 AM TREATMENT PLANT MECHANIC) TSH 1.97 0.30 - 4.20 mcIUnit/mL Blood 05/05/2024 9:18 AM TREATMENT PLANT MECHANIC 05/05/2024 9:22 AM TREATMENT PLANT MECHANIC Lorene Prince MD LAB BLOOD ORDERABLES F inal Result Performing Organization Address [facility] de Phone Number [facility] [place] [address] * (ABNORMAL) CBC with auto differential (05/05/2024 9:18 AM TREATMENT PLANT MECHANIC) WBC 6.8 3.8 - 9.9 K/cumm Comment:Testing performed by : [facility], [address] [place] [phone] Hgb 12.9 11.9 - 15.5 g/dL MOIR[facility] PIPER Comment:Testing performed by : [facility], [address] [place] [phone] Hct 40.4 35.6 - 45.5 % MOIRA PIPER Comment:Testing performed by : [facility], [address] [place] [phone] Plt 256 150 - 400 K/cumm [facility] Comment:Testing performed by : [facility], [address] [place], [place] [phone] MPV 8.8 6.8 - 10.4 fL MOIRA PIPER Comment:Testing performed by : [facility], [address] [place], [place] [phone] RBC 5.37(H) 3.90 - 5.20 M/cumm MOIRA PIPER Comment:Testing performed by : [facility], [address] [place], [place] [phone] MCV 75.3(L) 81.3 - 96.4 fL [facility] Comment:Testing performed by : [facility], [address] [place], [place] [phone] MCH 23.9(L) 27.1 - 33.3 pg [facility] Comment:Testing performed by : [facility], [address] [place], [place] [phone] MCHC 31.8(L) 32.3 - 35.7 g/dL [facility] Comment:Testing performed by : [facility], [address] [place], [place] [phone] RDW CV 18.8(H) 11.1 - 14.9 % [facility] Comment:Testing performed by : [facility], [address] [place], [place] [phone] NRBC abs 0.00 0.00 - 0.01 K/cumm [facility] Comment:Testing performed by : [facility], [address] [place], [place] [phone] Blood 05/05/2024 9:18 AM TREATMENT PLANT MECHANIC 05/05/2024 9:21 AM TREATMENT PLANT MECHANIC us Lorene Prince MD LAB BLOOD ORDERABLES F inal Result [facility] Department [place] [address] * Lipid panel (05/05/2024 9:18 AM TREATMENT PLANT MECHANIC) Cholesterol 153 30 - 199 mg/dL Comment: [...] revised on 2017. Triglycerides 131 <=149 mg/dL [facility] Comment: Interpretive Data Ages < or [...] revised on 2017. HDL 61 >=40 mg/dL [facility] Comment: Interpretive Data Ages < or [...] on 2017. LDL, calculated 69 <=129 mg/dL [facility] Comment: Interpretive Data Ages < or [...] 3. Momo Sinha et al. NAOMY Cardiol. 2020 September 04;5(5):540-548. doi: 10.1001/jamacardio.2020.0013 Current Interpretive Data was last revised on 2023. Non-HDL Cholesterol 92 mg/dL [facility] Comment: Interpretive Data Ages < or [...] last revised on 2017. Chol/HDL ratio 3 [facility] Blood 05/05/2024 9:18 AM TREATMENT PLANT MECHANIC 05/05/2024 9:22 AM TREATMENT PLANT MECHANIC us Lorene Prince MD LAB BLOOD ORDERABLES F inal Result [facility] Department of Laboratories [place], [place] [id number] * (ABNORMAL) Comprehensive metabolic panel (05/05/2024 9:18 AM TREATMENT PLANT MECHANIC) Sodium 139 135 - 145 mmol/L Potassium, pl 4.2 3.3 - 4.9 mmol/L [facility] Chloride 102 97 - 110 mmol/L [facility] CO2 30 22 - 32 mmol/L [facility] Anion gap 7 2 - 15 mmol/L [facility] BUN 15 6 - 25 mg/dL [facility] Creatinine 1.14(H) 0.60 - 1.10 mg/dL [facility] Glucose 111 70 - 199 mg/dL [facility] Comment: Interpretive Data Fasting glucose >/= [...] classification and Diagnosis of Diabetes Diabetes Care 202; 46: S19-S40. Current interpretive data was last revised 2022. Calcium 10.0 8.5 - 10.3 mg/dL [facility] Bilirubin, total 0.5 0.1 - 1.2 mg/dL [facility] Protein, pl 7.5 6.5 - 8.5 g/dL [facility] Albumin 4.0 3.5 - 5.0 g/dL [facility] Alk phos 75 40 - 130 Units/L [facility] ALT 24 7 - 45 Units/L [facility] AST 35 10 - 45 Units/L [facility] Blood 05/05/2024 9:18 AM TREATMENT PLANT MECHANIC 05/05/2024 9:22 AM TREATMENT PLANT MECHANIC Lorene Prince MD LAB BLOOD ORDERABLES F inal Result [facility] Department [place] [address] * CT Chest Abdomen Pelvis W Contrast (05/02/2024 9:47 AM TREATMENT PLANT MECHANIC) Anatomical Region Laterality Modality Body N/A Computed Tomogra phy 05/02/2024 10:4 2 AM TREATMENT PLANT MECHANIC Impressions 05/02/2024 10:42 AM TREATMENT PLANT MECHANIC 1. Stable pulmonary metastatic disease. 2. No evidence of recurrent or metastatic disease in the abdomen or pelvis. Electronically signed by: Alix Coello M.D. Narrative 05/02/2024 10:42 AM TREATMENT PLANT MECHANIC EXAMINATION: Computed tomography of the chest, abdomen [...] * (ABNORMAL) POCT creatinine (05/02/2024 9:26 AM TREATMENT PLANT MECHANIC) Creatinine POC 1.2(H) 0.6 - 1.1 mg/dL Blood 05/02/2024 9:26 AM TREATMENT PLANT MECHANIC 05/02/2024 9:26 AM TREATMENT PLANT MECHANIC us Lorene Prince MD LAB POCT ORDERABLES - DEVICE Final Result [facility] Department [place] [address] * SCREENING MAMMOGRAM BILATERAL W MONICA (10/04/2023 8:05 AM CDT) Anatomical Region Laterality Modality Breast Bilateral Mammography Narrative 10/04/2023 2:35 PM CDT Mammogram Technique: Bilateral Digital Breast Tomosynthesis, Bilateral C-view 2D Screening mammogram. Views obtained: bilateral craniocaudal and bilateral mediolateral oblique. Computer Aided Detection was performed. Mammogram Findings: The present examination has been compared to prior imaging studies performed at [facility] on 09/15/2011, 01/27/2014 and 10/31/2019, and at [facility] on 09/19/2022. There are scattered areas of [...] compared to prior imaging studies performed at [facility] on 09/15/2011, 01/27/2014 and 10/31/2019, and at [facility] on 09/19/2022. There are scattered areas of fibroglandular density. There is no suspicious abnormality in either breast. There are no significant changes from the prior study. Impression: There is no mammographic evidence of malignancy. Annual screening mammography is recommended. OVERALL FINAL ASSESSMENT: BI-RADS CATEGORY 1: Negative. 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 MF: JOVAN Report ID: [id number] Reading Location: [id number] Akhil Russo MD IM DXA PROCEDURES Final Re sult * High Risk HPV DNA Detection with Genotyping (Molecular component) (04/11/2023 1:41 PM TREATMENT PLANT MECHANIC) HPV HR 16 Not Detected Not Detected [facility] Comment:Testing performed by : [facility], [address] [place]., [address] HPV HR 18 Not Detected Not Detected [facility] Comment:Testing performed by : [facility], [address] [place]., [address] HPV HR Non 16/18 Not Detected Not Detected [facility] Comment: Interpretive Data Nucleic acid amplification for [...] this test have been verified by the [facility] Molecular Infectious Disease laboratory. Correlate with separately reported cytology results, as applicable. Interpretive data last revised 22 Testing performed by: [facility], [address] [facility], [place]., [address] Endocervical 04/11/2023 1:41 PM TREATMENT PLANT MECHANIC 04/12/2023 3:01 PM TREATMENT PLANT MECHANIC us Akhil Russo MD LAB BODY FLUIDS AND STOOLS ORDERABLES Final Result Performing Organization Address City/State/[facility] Phone Number MOIRA BECERRIL [address] [facility] Department of Laboratories [place], [place] [id number] * CT Colonography Diagnostic W Contrast (07/22/2021 [...] it. Electronically signed by: Stephanie Barajas M.D. Lorene Prince MD [facility] [place] PROCEDURES Autumn l Result * Hepatitis C antibody (01/03/2021 12:02 PM CDT) Hep C Ab Nonreactive Nonreactive [facility] Comment:Antibodies to HCV no t detected. Does NOT exclude the possibility of recent exposure to HCV. Blood 01/03/2021 12:0 2 PM CDT 01/03/2021 12:16 PM CDT us Carmen Fish [facility] MICROBIOLOGY - GENER AL ORDERABLES Edited Result - Final [facility] Department [place] [address] from Last 3 Months or Most Recently Relevant to Health Maintenance Insurance MEDICARE SOLUTIONS MEDICARE SOLUTIONS MEDICARE SOLUTIONS MEDICARE SOLUTIONS Member Subscriber Plan / Payer (Ef fective 2022-Present) Name:Jailyn Condon Relation to Subscriber:Self Name:Jailyn Condon Payer ID:[id number] (NAIC) Type:UHC MEDICARE Address: [place] [address] MEDICARE SOLUTIONS Advance Directives For more information, please contact: [phone] * Full Code (Latest Code Status on [...] 5:18 PM 02/21/2021 4:10 PM Care Teams Ammonia Print Operator Relationship Specialty Start Date End Date Akhil Russo MD [address] [place] [address] PCP - General Family Medicine 11/29/21 Lorene Prince MD Medical Oncologist/Hematologis t Medical Oncology 01/31/21 Mili Mcleod NP [address] [place] [address] Nurse Practitioner Cardiovascular Disease 07/18/22 [place] [address] [place] [address] Referring Physician Endocrinology Diabetes & Metabolism 08/20/23
--- OUTSIDE RECORDS SUMMARY | 2024-07-12 03:01 | XMS_ITS | Encounter Summary ---
Author Organization [facility] Healthcare Address [address] [place] [address] Care Team Providers Care Heddler Name Role Phone Unavailable Primary Care Provider Unavailabl e Reason for Visit * Diagnostic Imaging (Routine) - Closed Specialty Diagnoses / Procedures Referred By Contac t Referred To Contact Procedures Breast Imaging Screening Outside Reference Referral, Self Referral ID Status Reason Start Date Expiration Date Visits Re quested Visits Authorized [id number] Closed 10/05/2022 11/04/2023 1 1 Encounter Details Date Type Department Care Team (Late st Contact Info) Description 09/15/2011 Hospital Encounter [facility] [address] [place] [id number] Social History Tobacco Use Types Packs/Day Years Used Date Smoking Tobacco: Never Passive Smoke Exposure: Past Smokeless Tobacco: Never Alcohol Use Standard Drinks/Week Comments Never 0 (1 standard drink = 0.6 oz pur e alcohol) [facility] Utilities Answer Date Recorded In the past 12 months has [employer], gas, oil, or water [employer] threatened to shut off services in your [...] answer 09/04/2023 How often do you attend [facility] or confucianist services? Patient unable to answer 09/04/2023 Do you belong to any clubs o r organizations such as baptist groups, unions, fraternal or athletic groups, or [...] on file Legal Sex Female 8:31 AM EMERGENCY PHYSICIAN Gender Identity Female 12/08/2020 1:45 PM CDT Sexual Orientation Straight 01/22/2019 10 :49 AM CDT documented as of this encounter Functional Status * Audit-C Score Answer Date of Assessment Author 0 01/21/2024 9:51 AM CHRISTIT Nikole Vega RN * Question Answer Date of Assessment Author Q1: How often do you have a drink containing alcohol? Never 01/21/2024 9:51 AM CHRSITIT Nikole Vega RN Q2: How many drinks [...] Outside Reference (09/15/2011 12:00 AM CDT) Impressions RAD_MAMMO_[facility] - 10/05/2022 10:43 AM CDT These images are for Reference purposes only and have not been reviewed by [facility] Radiology. There will be no report generated by a [facility] Radiologist. Narrative [facility] - 10/05/2022 10:43 [...] C. difficile suspected 07/05/2023 07/05/2023 10:37 PM EMERGENCY PHYSICIAN COVID: Suspected 08/22/2023 08/22/2023 08/22/2023 5:03 PM CDT C. difficile suspected 08/22/2023 08/22/202308/22 3:06 AM CDT C. difficile suspected 09/01/2023 09/02/202309/04 3:05 AM CDT Norovirus suspected 09/01/2023 09/02/2023 09/05/19 3:05 AM CDT documented as of this encounter
--- OUTSIDE RECORDS SUMMARY | 2024-07-12 03:01 | XMS_ITS | Encounter Summary ---
Author Organization [facility] Healthcare Address [address] [place] [address] Care Team Providers Care Electronic Equipment Repairer Name Role Phone Fide Contreras MD Primary Care Provider Reason for Visit * Diagnostic Imaging (Routine) - Closed Specialty Diagnoses / Procedures Referred By Yrn mei Referred To Contact Diagnoses Malignant neoplasm of left kidney (HCC) Malignant neoplasm of left kidney (HCC) Procedures Breast Imaging Screening Outside Reference Referral, Self Referral ID Status Reason Start Date Expiration Date Visits Re quested Visits Authorized [id number] Closed 10/05/2022 11/04/2023 1 1 Encounter Details Date Type Department Care Team (Late st Contact Info) Description 10/31/2019 Hospital Encounter [facility] [address] [place] [address] Social History Tobacco Use Types Packs/Day Years Used Date Smoking Tobacco: Never Passive Smoke Exposure: Past Smokeless Tobacco: Never Alcohol Use Standard Drinks/Week Comments Never 0 (1 standard drink = 0.6 oz pur e alcohol) [facility] Utilities Answer Date Recorded In the past 12 months has [employer], gas, oil, or water company threatened [...] How often do you attend chur or religion services? Patient unable to answer 09/04/2023 Do you belong to any clubs o r organizations such as hindu groups, unions, fraternal or athletic groups, or [...] place to sleep or slept in a usp (including now)? Patient unable to answer 09/04/2023 [...] on file Legal Sex Female 8:31 AM WARP YARN SORTER Gender Identity Female 12/08/2020 1:45 PM CDT [...] and have not been reviewed by [facility] Radiology. There will be no report generated by a [facility] Radiologist. Narrative [facility]_M[facility]MO[facility] - 10/05/2022 10:41 AM CDT EXAMINATION: Images For Reference Purposes Only us Self Referral IMG MAMMO PROCEDURES Final Resul t [facility] documented in this encounter Visit Diagnoses Not on filedocumented in this encounter Additional Health Concerns Infection Onset Date Last Indicated Resolved Time COVID: Suspected 02/18/2021 02/18/2021 02/18/2021 9:54 PM CDT COVID: Suspected 02/19/2021 02/19/2021 02/19/2021 10:06 AM CDT COVID: Suspected 10/09/2022 10/09/2022 10/09/2022 2:21 PM CDT Diarrhea 07/01/2023 07/01/2023 07/15/2023 3:05 AM CDT C. difficile suspected 07/05/2023 07/05/2023 10:37 PM WARP YARN SORTER COVID: Suspected 08/22/2023 08/22/2023 08/22/2023 5:03 PM CDT C. difficile suspected 08/22/2023 08/22/202308/22 3:06 AM CDT C. difficile suspected 09/01/2023 09/02/202309/04 3:05 AM CDT Norovirus suspected 09/01/2023 09/02/2023 09/05/19 3:05 AM CDT documented as of this encounter Care Teams Electronic Equipment Repairer Relationship Specialty Start Date End Date Fide Contreras MD [address] [address] PCP - General Family Medicine 01/01/19 11/15/21 documented as of this encounter
[2024-07-12 04:09] LABS: Basophils Percent Auto 0.1 % (0.2-1.2); Eosinophils Percent Auto 0.5 % (0-4.4); Hematocrit 47.5 % (37.0-47.0); Hemoglobin 14.7 g/dL (12.0-15.0); Immature Granulocyte Absolute 0.02 K/mm3 (0.00-0.031); Immature Granulocyte Percent A 0.3 % (0-0.5); Lymphocytes Absolute Auto 1.95 K/mm3 (0.9-3.2); Lymphocytes Percent Auto 24.5 % (18.3-44.2); Mean Corpuscular HGB Conc 30.9 g/dl (32-36); Mean Corpuscular Hemoglobin 23.6 pg (26-34); Mean Corpuscular Volume 76.4 fl (80-100); Mean Platelet Volume 10.9 fl (7.4-10.4); Monocytes Absolute Auto 0.3 K/mm3 (0.1-0.6); Monocytes Percent Auto 3.8 % (2.6-8.5); Neutrophils Absolute Auto 5.6 K/mm3 (1.3-6.7); Neutrophils Percent Auto 70.8 % (45.5-73.1); Platelet Count Result 292 k/mm3 (150-375); Red Blood Count 6.22 M/mm3 (4.2-5.4)
[2024-07-12 04:18] LABS: Alanine Aminotransferase 34 U/L (6-35); Albumin Level 5.2 g/dL (3.5-5.1); Alkaline Phosphatase 106 U/L (38-126); Anion Gap 22 mmol/L (4-12); Aspartate Amino Transferase 44 U/L (14-36); Bilirubin,Total 1.6 mg/dL (0.2-1.3); Blood Urea Nitrogen 18 mg/dL (7-17); Calcium 10.9 mg/dL (8.4-10.2); Carbon Dioxide 17 mmol/L (22-30); Chloride 105 mmol/L (98-107); Estimated CRCL calculation 28 ml/min; Estimated Glomerular Filt Rate 29; Glucose 172 mg/dL (65-110); Lipase 56 U/L (23-300); Potassium 4.5 mmol/L (3.4-5.0); Sodium 144 mmol/L (137-145)
--- NOTE | 2024-07-12 04:27 | PC.NURSE ---
pt states she is unable to provide a urine sample
--- OUTSIDE RECORDS SUMMARY | 2024-07-12 04:52 | XMS_ITS | Encounter Summary ---
Author Organization [facility] Healthcare Address [address] [place] [address] Care Team Providers Care Weigher Production Name Role Phone Fide Contreras MD Primary Care Provider Reason for Visit * Diagnostic Imaging (Routine) - Closed Specialty Diagnoses / Procedures Referred By Yrn mei Referred To Contact Diagnoses Malignant neoplasm of left kidney (HCC) Malignant neoplasm of left kidney (HCC) Procedures Breast Imaging Screening Outside Reference Referral, Self Referral ID Status Reason Start Date Expiration Date Visits Re quested Visits Authorized [id number] Closed 10/05/2022 11/04/2023 1 1 Encounter Details Date Type Department Care Team (Late st Contact Info) Description 10/31/2019 Hospital Encounter [facility] [address] [place] [address] Social History Tobacco Use Types Packs/Day Years Used Date Smoking Tobacco: Never Passive Smoke Exposure: Past Smokeless Tobacco: Never Alcohol Use Standard Drinks/Week Comments Never 0 (1 standard drink = 0.6 oz pur e alcohol) [facility] Utilities Answer Date Recorded In the past 12 months has [employer] electric, gas, oil, or water company threatened [...] How often do you attend chur or amish services? Patient unable to answer 09/04/2023 Do you belong to any clubs o r organizations such as samaritan groups, unions, fraternal or athletic groups, or [...] on file Legal Sex Female 8:31 AM ASSEMBLER MECHANICAL ORDNANCE Gender Identity Female 12/08/2020 1:45 PM CDT [...] on one occasion? Never 01/21/2024 9:51 AM HCRISTIT Nikole Vega RN documented as of this [...] only and have not been reviewed by [facility] Radiology. There will be no report generated by a [facility] Radiologist. Narrative RAD_MAMMO[facility] - 10/05/2022 10:41 AM [...] C. difficile suspected 07/05/2023 07/05/2023 10:37 PM ASSEMBLER MECHANICAL ORDNANCE COVID: Suspected 08/22/2023 08/22/2023 08/22/2023 5:03 PM CDT C. difficile suspected 08/22/2023 08/22/202308/22 3:06 AM CDT C. difficile suspected 09/01/2023 09/02/202309/04 3:05 AM CDT Norovirus suspected 09/01/2023 09/02/2023 09/05/19 3:05 AM CDT documented as of this encounter Care Teams Weigher Production Relationship Specialty Start Date End Date Fide Contreras MD [address] [address] PCP - General Family Medicine 01/01/19 11/15/21 documented as of this encounter
--- OUTSIDE RECORDS SUMMARY | 2024-07-12 04:52 | XMS_ITS | Encounter Summary ---
Author Organization [facility] Address [address] [place] [address] Phone Care Team Providers Care Protein Scientist Name Role Phone Lorene Prince MD Unavailable [phone] Akhil Russo MD Primary Care Provider [phone] RaterMili NP Unavailable Guillermina Stokes MD Unavailable Encounter Details Date Type Department Care Team (Late st Contact Info) Description 10/10/2022 Telephone [facility] ([facility] - [facility] ENT [address] [facility] [address] [place] [address] [place] [id number] Goyo Salinas MD [address] [place] [address] Social History Tobacco Use Types [...] on file Legal Sex Female 8:31 AM HEEL DIPPER Gender Identity Female 12/08/2020 1:45 PM CDT Sexual Orientation Straight 01/22/2019 10 :49 AM CDT documented as of this encounter Plan of Treatment Not on file documented as of this encounter Visit Diagnoses Not on filedocumented in this encounter Additional Health Concerns Infection Onset Date Last Indicated Resolved Time Diarrhea 07/01/2023 07/01/2023 07/15/2023 3:05 AM CDT C. difficile suspected 07/05/2023 07/05/2023 10:37 PM HEEL DIPPER COVID: Suspected 08/22/2023 08/22/2023 08/22/2023 5:03 PM CDT C. difficile suspected 08/22/2023 08/22/202308/22 3:06 AM CDT C. difficile suspected 09/01/2023 09/02/202309/04 3:05 AM CDT Norovirus suspected 09/01/2023 09/02/2023 09/05/19 3:05 AM CDT documented as of this encounter Care Teams Protein Scientist Relationship Specialty Start Date End Date Akhil Russo MD [address] [place] [address] PCP - General Family Medicine 11/29/21 Lorene Prince MD Medical Oncologist/Hematologis t Medical Oncology 01/31/21 Mili Mcleod NP [address] [place] [address] Nurse Practitioner Cardiovascular Disease 07/18/22 Guillermina Stokes MD Critical access hospital1 [facility] [address] [place] [address] Referring Physician Endocrinology Diabetes & Metabolism 08/20/23 documented as of this encounter
--- OUTSIDE RECORDS SUMMARY | 2024-07-12 04:52 | XMS_ITS | Encounter Summary ---
Author Organization [facility] Healthcare Address [address] [place] [address] Care Team Providers Care Locks Tender Name Role Phone Fide Contreras MD Primary Care Provider Lorene Prince MD Unavailable [phone] Vinod Bird MD Unavailable Sandra Prieto Primary Care Provider [phone] Akhil Russo MD Primary Care Provider [phone] Mili Mcleod NP Unavailable Guillermina Stokes MD Unavailable Encounter Details Date Type Department Care Team (Late st Contact Info) Description 01/04/2021 Telephone [facility] Radiology [address] [place], [place] [id number] Lorene Prince MD [address] [facility] [address] [place] [address] Social History Tobacco Use Types Packs/Day Years [...] on file Legal Sex Female 8:31 AM ASPHALT COATER Gender Identity Female 12/08/2020 1:45 PM CDT [...] C. difficile suspected 07/05/2023 07/05/2023 10:37 PM ASPHALT COATER COVID: Suspected 08/22/2023 08/22/2023 08/22/2023 5:03 PM CDT C. difficile suspected 08/22/2023 08/22/202308/22 3:06 AM CDT C. difficile suspected 09/01/2023 09/02/202309/04 3:05 AM CDT Norovirus suspected 09/01/2023 09/02/2023 09/05/19 3:05 AM CDT documented as of this encounter Care Teams Locks Tender Relationship Specialty Start Date End Date Fide Contreras MD [address] [place] [address] PCP - General Family Medicine 01/01/19 11/15/21 Sandra Prieto PA [address] [place] [address] PCP - General Internal Medicine 11/16/21 11/28/21 Akhil Russo MD [address] [place] [address] PCP - General Family Medicine 11/29/21 Lorene Prince MD [address] [place] [address] Medical Oncologist/Hematologis t Medical Oncology 01/31/21 Vinod Bird MD [address] [place] [address] Consulting Physician Cardiovascular Disease 03/23/21 Mili Mcleod NP [address] [place] [address] Nurse Practitioner Cardiovascular Disease 07/18/22 Guillermina Stokes MD [address] [facility] [address] [address] Referring Physician Endocrinology Diabetes & Metabolism 08/20/23 documented as of this encounter
--- OUTSIDE RECORDS SUMMARY | 2024-07-12 04:52 | XMS_ITS | Encounter Summary ---
Author Organization [facility] Healthcare Address [address] [place] [address] Care Team Providers Care Dump Grounds Checker Name Role Phone Unavailable Primary Care Provider Unavailabl e Reason for Visit * Diagnostic Imaging (Routine) - Closed Specialty Diagnoses / Procedures Referred By Contac t Referred To Contact Procedures Breast Imaging Screening Outside Reference Referral, Self Referral ID Status Reason Start Date Expiration Date Visits Re quested Visits Authorized [id number] Closed 10/05/2022 11/04/2023 1 1 Encounter Details Date Type Department Care Team (Late st Contact Info) Description 01/27/2014 Hospital Encounter [facility] [address] [place] [id number] Social History Tobacco Use Types Packs/Day Years Used Date Smoking Tobacco: Never Passive Smoke Exposure: Past Smokeless Tobacco: Never Alcohol Use Standard Drinks/Week Comments Never 0 (1 standard drink = 0.6 oz pur e alcohol) [facility] Utilities Answer Date Recorded In the past 12 months has [employer], gas, oil, or water [employer] threatened to shut off services in your [...] answer 09/04/2023 How often do you attend up health system or jain services? Patient unable to answer 09/04/2023 Do you belong to any clubs o r organizations such as methodist groups, unions, fraternal or athletic groups, or [...] place to sleep or slept in a long-term (including now)? Patient unable to answer 09/04/2023 [...] on file Legal Sex Female 8:31 AM PNEUMATIC PRESS HAND Gender Identity Female 12/08/2020 1:45 PM CDT [...] only and have not been reviewed by [facility] Radiology. There will be no report generated by a [facility] Radiologist. Narrative [id number] - [...] C. difficile suspected 07/05/2023 07/05/2023 10:37 PM PNEUMATIC PRESS HAND COVID: Suspected 08/22/2023 08/22/2023 08/22/2023 5:03 PM CDT C. difficile suspected 08/22/2023 08/22/202308/22 3:06 AM CDT C. difficile suspected 09/01/2023 09/02/202309/04 3:05 AM CDT Norovirus suspected 09/01/2023 09/02/2023 09/05/19 3:05 AM CDT documented as of this encounter
--- OUTSIDE RECORDS SUMMARY | 2024-07-12 04:52 | XMS_ITS | Encounter Summary ---
Author Organization [facility] Healthcare Address [address] [place] [address] Care Team Providers Care Showroom Consultant Name Role Phone Lorene Prince MD Unavailable [phone] Vinod Bird MD Unavailable Akhil Russo MD Primary Care Provider [phone] Mili Mcleod NP Unavailable Guillermina Stokes MD Unavailable [phone] Encounter Details Date Type Department Care Team (Late st Contact Info) Description 12/01/2021 Telephone [facility] [address] [facility] [address] [place] [address] Akhil Russo MD [address] [facility] [address] [place] [address] Social History Tobacco Use Types [...] on file 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 difficile suspected 08/22/2023 08/22/202308/22 3:06 AM CDT C. difficile suspected 09/01/2023 09/02/202309/04 3:05 AM CDT Norovirus suspected 09/01/2023 09/02/2023 09/05/19 3:05 AM CDT documented as of this encounter Care Teams Showroom Consultant Relationship Specialty Start Date End Date Akhil Russo MD [address] [place] [address] PCP - General Family Medicine 11/29/21 Lorene Prince MD Medical Oncologist/Hematologis t Medical Oncology 01/31/21 Vinod Bird MD Consulting Physician Cardiovascular Disease 03/23/21 Mili Mcleod NP [address] [place] [address] Nurse Practitioner Cardiovascular Disease 07/18/22 Guillermina Stokes MD [address] [address] Referring Physician Endocrinology Diabetes & Metabolism 08/20/23 documented as of this encounter
--- OUTSIDE RECORDS SUMMARY | 2024-07-12 04:52 | XMS_ITS | Clinical Summary ---
Author Organization [facility] Address [address] [place] [address] Care Team Providers Care Manufacturing Accountant Name Role Phone Lorene Prince MD Unavailable [phone] Akhil Russo MD Primary Care Provider [phone] Mili Mcleod NP Unavailable Guillermina Stokes MD Unavailable [phone] Allergies Active Allergy Reactions Criticality Noted Date Comments [place] And Derivatives Diarrhea Low 01/09/2019 Codeine Hives [...] resolve. Assessment & Plan (04/05/2022 12:32 AM WATERWAY TRAFFIC CHECKER): - Pt c/o dehydration and lightheadedness on exam - CTH was unremarkable for any acute intracranial abnormalities. No orthostatis noted on exam - c/w LR @ 75 ml/hr Bacteriuria 04/05/2022 Assessment & Plan (04/05/2022 12:39 AM WATERWAY TRAFFIC CHECKER): - UA was + for LE and trace Bacteria, given immunocompromised status, will start on Cefepime IV 2g q12h pending cultures - Taper coverage based on c&s Headache 04/05/2022 Assessment & Plan (04/05/2022 12:40 AM WATERWAY TRAFFIC CHECKER): - Pt c/o intermittent headaches and lightheadedness on exam. Given hx of mets CTH was obtained which was unremarkable for any acute intracranial abnormalities. Seasonal allergies 04/05/2022 Assessment & Plan (04/05/2022 12:40 AM WATERWAY TRAFFIC CHECKER): - c/w Flonase nasal spray MARAVILLA (dyspnea on exertion) 04/05/2022 Assessment & Plan (04/05/2022 12:48 AM WATERWAY TRAFFIC CHECKER): - Pt c/o dyspnea on exertion , can likely be related to metastatic disease progression - EKG was unremarkable on admission while Trop and BNP were also WNL - TTE donw previously in 12/2020 was remarkable for LVEf of 54% with limited study - Plan to repeat TTE Diarrhea in adult patient 04/04/2022 Assessment & Plan (04/05/2022 12:37 AM WATERWAY TRAFFIC CHECKER): - Pt presented with worsening NB , [...] 11/30/2021 Assessment & Plan (03/19/2024 10:38 AM WATERWAY TRAFFIC CHECKER): A(n) yearly Medicare Annual Wellness Visit has [...] OK Assessment & Plan (07/08/2022 12:17 PM WATERWAY TRAFFIC CHECKER): TSH 0.17 uIU/ml, normal T4 Thyroid dosing has been adjusted, awaiting repeat Assessment & Plan (04/05/2022 12:34 AM WATERWAY TRAFFIC CHECKER): - c/w Synthroid 100 mcg po qam [...] zoloft Assessment & Plan (04/05/2022 12:37 AM WATERWAY TRAFFIC CHECKER): - c/w Sertraline 25 mg po every [...] ordered in [facility] and completed --> Posterior T12 Vertebral lesion [...] ordered in [facility] and completed, read pending -Will start scheduled [...] 02/18/2021 Assessment & Plan (04/05/2022 12:34 AM WATERWAY TRAFFIC CHECKER): - Pt c/o worsening SOB which can [...] dehydration Assessment & Plan (07/08/2022 12:18 PM WATERWAY TRAFFIC CHECKER): Renal function decreased, GFR at 42 Creatinine 1.39 Advised on hydration Assessment & Plan (04/05/2022 12:34 AM WATERWAY TRAFFIC CHECKER): - c/w Toprol XL 50 mg po [...] recurrence. Assessment & Plan (04/05/2022 12:31 AM WATERWAY TRAFFIC CHECKER): - Pt was diagnosed with left renal [...] 07/18/2023 Assessment & Plan (04/05/2022 12:39 AM WATERWAY TRAFFIC CHECKER): - Pt has documented hx of PE, has been off AC for over 3 months Total perforation of left tympanic membrane 09/12/2021 02/10/2022 Overview (09/12/2021): Added automatically from request for surgery [id number] Left renal mass 01/03/2019 01/24/2019 Overview (01/03/2019): Added automatically from request for surgery [id number] Encounters Date Type Department Care Team Description 06/20/2024 11:30 AM WATERWAY TRAFFIC CHECKER Therapy [facility] Occupational Therapy [address] [facility] Advanced Medicine 6th [place] [address] [place] [address] Shante Roberts, OT Chronic pain of right thumb (Primary Dx) 06/16/2024 1:00 PM WATERWAY TRAFFIC CHECKER Office Visit [facility] Oncology [address] [place] [address] Floor 5 [place] [address] Lorene Prince MD Malignant neoplasm of left kidney (CMS/HCC) (HCC) (Primary Dx); Malignant neoplasm of left kidney (HCC) 06/16/2024 12:00 PM WATERWAY TRAFFIC CHECKER Lab [facility] Oncology Lab [address] [place] [address] 5 [place] [address] Malignant neoplasm of left kidney (CMS/HCC) (HCC) 06/16/2024 11:45 AM WATERWAY TRAFFIC CHECKER Lab [facility] - Lab Collection [facility] Floor 5 [place] [address] Malignant neoplasm of left kidney (CMS/HCC) (HCC) 06/04/2024 1:30 PM WATERWAY TRAFFIC CHECKER Office Visit [facility] Orthopaedic Surgery [address] [facility] 2nd Floor [address] [place] [address] Govind Yee MD Arthritis of carpometacarpal (CMC) joint of right thumb (Primary Dx); Malignant neoplasm of left kidney (CMS/HCC) (HCC) 06/04/2024 1:10 PM WATERWAY TRAFFIC CHECKER Therapy [facility] Occupational Therapy [address] [facility] 1st Floor [address] [place] [phone] Shante Roberts OT Chronic pain of right thumb (Primary Dx) 06/04/2024 Orders Only HEIN OS HAND/WRIST Scanning, Provider 06/04/2024 Plan of Care Documentation [facility] Occupational Therapy [address] [facility] 1st Floor [address] [place] [phone] 06/02/2024 Documentation [facility] [address] [place] [address] Floor 6 [place] [address] Barbi Lynn [facility] 202405/20/2024 1:20 PM WATERWAY TRAFFIC CHECKER Procedure visit [facility]ol[facility]ology [facility] [address] [place] [address] Mixed conductive and sensorineural hearing loss of left ear with restricted hearing of right ear (Primary Dx); Sensorineural hearing loss (SNHL) of right ear with restricted hearing of left ear 05/20/2024 1:20 PM WATERWAY TRAFFIC CHECKER Office Visit [facility]ol[facility] [address] [place] [address] Goyo Salinas MD Chronic diffuse otitis externa of left ear (Primary Dx); 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 05/13/2024 Telephone [facility] Oncology [address] [place] [address] Floor 5 [place] [phone] Lorene Prince MD 05/13/2024 Telephone [facility] Oncology [address] [place] [address] 5 [place] [phone] Lorene Prince MD 05/09/2024 Telephone [facility] Oncology [address] [place] [address] Floor 5 [place] [address] Lorene Prince MD 05/08/2024 Telephone [facility] Oncology [address] [place] [address] 5 [place] [address] Lorene Prince MD 05/08/2024 Telephone [facility] Oncology [address] [facility] [address] [place] [id number] Pam Vance RMA Ear Drainage 05/08/2024 Telephone [facility] Oncology [address] [place] [address] 5 [place] [address] Lorene Prince MD 05/05/2024 10:30 AM WATERWAY TRAFFIC CHECKER Office Visit [facility] Oncology [address] [place] [address] 5 [place] [address] Lorene Prince MD Malignant neoplasm of left kidney (CMS/HCC) (HCC) (Primary Dx); Malignant neoplasm of left kidney (HCC) 05/05/2024 9:30 AM WATERWAY TRAFFIC CHECKER Lab [facility] Oncology Lab [address] [place] [address] 5 [place] [address] Malignant neoplasm of left kidney (CMS/HCC) (HCC) 05/05/2024 9:15 AM WATERWAY TRAFFIC CHECKER Lab [facility] - Lab Collection [address] [place] [address] 5 [place] [address] Malignant neoplasm of left kidney (CMS/HCC) (HCC) 05/02/2024 9:14 AM WATERWAY TRAFFIC CHECKER - 05/02/2024 11:59 PM WATERWAY TRAFFIC CHECKER Hospital Encounter [facility] [place] [address] [facility] Floor 8 [place] [address] Malignant neoplasm of left kidney (CMS/HCC) (HCC) Discharge Disposition: Discharge to home or self care 05/02/2024 Telephone [facility] Oncology [address] [place] [address] 5 [place] [address] Lorene Prince MD 04/23/2024 Telephone [facility] Oncology [address] [place] [address] 6 [place] [address] Lorene Prince MD 04/23/2024 Telephone [facility] Oncology [address] [place] [address] Floor 6 [place] [address] Lorene Prince MD 04/22/2024 11:30 AM WATERWAY TRAFFIC CHECKER Office Visit [facility] Cardiology [address] 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 04/21/2024 Telephone [facility] Oncology [address] [facility] Floor 5 [place] [address] Lorene Prince MD from Last 3 Months Immunizations Immunization Administration Dates Next Due Influenza, Quadrivalent, Caite l Culture-based MDCK, Preservative Free, Antibiotic Free, [...] 1 Algene Clotting disorder Father's Brother 2 Walsh Hearing loss Maternal Grandmother Louise Agarwal Heart [...] Father's Brother 1 Algene Father's Brother 2 Walsh Maternal Grandmother Louise Agarwal Mother Jasvir Diaz Paternal Grandmother Dominique Sister 1 Cherelle Sister 2 Radha Sister 3 Kemi Son Sha Condon Social History Tobacco Use Types Packs/Day Years Used Date Smoking Tobacco: Never Passive Smoke Exposure: Past Smokeless Tobacco: Never Tobacco Cessation:Counseling Given: Not Answered Alcohol Use Standard Drinks/Week Comments Never 0 (1 standard drink = 0.6 oz pur e alcohol) [facility] Utilities Answer Date Recorded In the [...] How often do you attend chur or synagogue services? Patient unable to answer 09/04/2023 Do you belong to any clubs o r organizations such as advent groups, unions, fraternal or athletic groups, or [...] place to sleep or slept in a [place] [facility] [place] (including now)? Patient unable to answer 09/04/2023 [...] on file Legal Sex Female 8:31 AM WATERWAY TRAFFIC CHECKER Gender Identity Female 12/08/2020 1:45 PM CDT Sexual Orientation Straight 01/22/2019 10 :49 AM CDT Obstetrics History Last Filed Vital Signs Vital Sign Reading Time Taken Comments Blood Pressure 132/84 06/16/2024 12:41 PM WATERWAY TRAFFIC CHECKER Pulse 93 06/16/2024 12:41 PM WATERWAY TRAFFIC CHECKER Temperature 36.3 C (97.3 F) 06/16/2024 12:41 PM WATERWAY TRAFFIC CHECKER Respiratory Rate 17 06/16/2024 12:41 PM WATERWAY TRAFFIC CHECKER Oxygen Saturation 97% 06/16/2024 12:41 PM WATERWAY TRAFFIC CHECKER Inhaled Oxygen Concentration - - Weight 73.9 kg (163 lb) 06/16/2024 12:41 PM WATERWAY TRAFFIC CHECKER Height 160 cm (5' 3 ) 06/16/2024 12:41 PM WATERWAY TRAFFIC CHECKER Body Mass Index 28.87 06/16/2024 12:41 PM WATERWAY TRAFFIC CHECKER Plan of Treatment Health Maintenance Due Date [...] RATIO, URINE, RANDOM Routine 06/16/2024 12:05 PM WATERWAY TRAFFIC CHECKER Malignant neoplasm of left kidney (CMS/HCC) (HCC) EGFR Routine 06/16/2024 11:52 AM WATERWAY TRAFFIC CHECKER Malignant neoplasm of left kidney (HCC) DIFFERENTIAL AUTO Routine 06/16/2024 11:52 AM WATERWAY TRAFFIC CHECKER Malignant neoplasm of left kidney (HCC) THYROID FUNCTION CASCADE Routine 06/16/2024 11:52 AM WATERWAY TRAFFIC CHECKER Malignant neoplasm of left kidney (CMS/HCC) (HCC) CBC WITH AUTO DIFFERENTIAL Routine 06/16/2024 11:52 AM WATERWAY TRAFFIC CHECKER Malignant neoplasm of left kidney (CMS/HCC) (HCC) COMPREHENSIVE METABOLIC PANEL Routine 06/16/2024 11:52 AM WATERWAY TRAFFIC CHECKER Malignant neoplasm of left kidney (CMS/HCC) (HCC) LIPID PANEL Routine 06/16/2024 11:52 AM WATERWAY TRAFFIC CHECKER Malignant neoplasm of left kidney (CMS/HCC) (HCC) NV ARTHROCENTESIS ASPIR&/INJ SMALL JT/BURSA W/O US Routine 06/04/2024 1:30 PM WATERWAY TRAFFIC CHECKER Arthritis of carpometacarpal (CMC) joint of right thumb SCAN - RADIOLOGY/IMAGING 06/04/2024 AUDBASE RESULTS 05/20/2024 1:27 PM WATERWAY TRAFFIC CHECKER PROTEIN / CREATININE RATIO, URINE, RANDOM Routine 05/05/2024 9:29 AM WATERWAY TRAFFIC CHECKER Malignant neoplasm of left kidney (CMS/HCC) (HCC) EGFR Routine 05/05/2024 9:18 AM WATERWAY TRAFFIC CHECKER Malignant neoplasm of left kidney (HCC) DIFFERENTIAL AUTO Routine 05/05/2024 9:1 8 AM WATERWAY TRAFFIC CHECKER Malignant neoplasm of left kidney (HCC) THYROID FUNCTION CASCADE Routine 05/05/2024 9:18 AM WATERWAY TRAFFIC CHECKER Malignant neoplasm of left kidney (CMS/HCC) (HCC) CBC WITH AUTO DIFFERENTIAL Routine 05/05/2024 9:18 AM WATERWAY TRAFFIC CHECKER Malignant neoplasm of left kidney (CMS/HCC) (HCC) COMPREHENSIVE METABOLIC PANEL Routine 05/05/2024 9:18 AM WATERWAY TRAFFIC CHECKER Malignant neoplasm of left kidney (CMS/HCC) (HCC) LIPID PANEL Routine 05/05/2024 9:18 AM WATERWAY TRAFFIC CHECKER Malignant neoplasm of left kidney (CMS/HCC) (HCC) CT CHEST ABDOMEN PELVIS W CONTRAST Schedule Routine, Read Routine (OP Routine) 05/02/2024 9:47 AM WATERWAY TRAFFIC CHECKER Malignant neoplasm of left kidney (CMS/HCC) (HCC) POCT CREATININE - DEVICE Routine 05/02/2024 9:26 AM WATERWAY TRAFFIC CHECKER SCREENING MAMMOGRAM BILATERAL W MONICA Schedule Routine, Read Routine (OP Routine) 10/04/2023 8:05 AM CDT Screening mammogram for breast cancer DEXA AXIAL SKELETON BONE DENSITY 1 OR MORE SITES Schedule Routine, Read Routine (OP Routine) 07/26/2023 8:08 AM CDT Screening for osteoporosis MCC (current) use of immunomodulator HIGH RISK HPV DNA DETECTION WITH GENOTYPING Routine 04/11/2023 1:[address] VIRTUAL COLONOSCOPY DIAGNOSTIC W CONTRAST IP Routine 07/22/2021 2:35 PM CDT HEPATITIS C ANTIBODY Routine 01/03/2021 12:02 PM CDT Malignant neoplasm of left kidney (HCC) from Last 3 Months or Most Recently Relevant to Health Maintenance Results * Protein / creatinine ratio, urine, random (06/16/2024 12:05 PM WATERWAY TRAFFIC CHECKER) Pathologist [facility] Protein, ur, quant 7.6 mg/dL Comment: Interpretive Data No reference range established. Current interpretive data was last revised 2018. Creatinine Ur 79.8 mg/dL [facility] Comment: Interpretive Data No reference range established. Current interpretive data was last revised 2018. Protein/creatinin e ratio 95.2 0.0 - 180.0 mg/g CR [facility] Urine 06/16/2024 12:0 5 PM WATERWAY TRAFFIC CHECKER 06/16/2024 12:44 PM WATERWAY TRAFFIC CHECKER us Lorene Prince MD LAB URINE ORDERABLES F inal Result [facility] Department [place] [address] * (ABNORMAL) eGFR (06/16/2024 11:52 AM WATERWAY TRAFFIC CHECKER) Pathologist [facility] eGFR 52(L) >=60 mL/min/1. 73 m2 Comment: [...] reviewed 2021. Blood 06/16/2024 11:5 2 AM WATERWAY TRAFFIC CHECKER 06/16/2024 12:05 PM WATERWAY TRAFFIC CHECKER Lorene Prince MD LAB BLOOD ORDERABLES F inal Result [facility] Department [place] [address] * Differential, auto (06/16/2024 11:52 AM WATERWAY TRAFFIC CHECKER) Neutrophil abs 3.4 1.5 - 6.5 K/cumm Comment:Testing performed by : [facility], [address] [place] [address] Lymphocyte abs 2.1 0.8 - 3.3 K/cumm [facility] Comment:Testing performed by : [facility], [address] [place] [phone] Monocyte abs 0.4 0.2 - 0.8 K/cumm [facility] Comment:Testing performed by : [facility], [address] [place], [place] [phone] Eosinophil abs 0.1 0.0 - 0.5 K/cumm [facility] Comment:Testing performed by : [facility], [address] [place], [place] [phone] Basophil abs 0.1 0.0 - 0.1 K/cumm [facility] Comment:Testing performed by : [facility], [address] [place] [phone] Neutrophil pct 56.2 % [facility] Comment: Interpretive Data Percent cell count reference ranges are not reported, since discordance with absolute values may lead to misinterpretation of CBC data. Current Interpretive Data was last revised on 2017. Testing performed by: [facility], [address] [place] [phone] Lymphocyte pct 34.4 % [facility] Comment: Interpretive Data Percent cell count reference ranges are not reported, since discordance with absolute values may lead to misinterpretation of CBC data. Current Interpretive Data was last revised on 2017. Testing performed by: [facility], [address] [place] [phone] Monocyte pct 6.8 % [facility] Comment: Interpretive Data Percent cell count reference ranges are not reported, since discordance with absolute values may lead to misinterpretation of CBC data. Current Interpretive Data was last revised on 2017. Testing performed by: [facility], [address] [place] [phone] Eosinophil pct 1.6 % [facility] Comment: Interpretive Data Percent cell count reference ranges are not reported, since discordance with absolute values may lead to misinterpretation of CBC data. Current Interpretive Data was last revised on 2017. Testing performed by: [facility], [address] [place] [phone] Basophil pct 1.0 % [facility] Comment: Interpretive Data Percent cell count reference ranges are not reported, since discordance with absolute values may lead to misinterpretation of CBC data. Current Interpretive Data was last revised on 2017. Testing performed by: [facility], [address] [place] [phone] Blood 06/16/2024 11:5 2 AM WATERWAY TRAFFIC CHECKER 06/16/2024 12:03 PM WATERWAY TRAFFIC CHECKER us Lorene Prince MD LAB BLOOD ORDERABLES F inal Result Performing Organization Address City/[facility]/ZIP Co de Phone Number [facility] Department [place] [address] * Thyroid Function [place] (06/16/2024 11:52 AM WATERWAY TRAFFIC CHECKER) [facility] TSH 0.66 0.30 - 4.20 mcIUnit/mL Blood 06/16/2024 11:5 2 AM WATERWAY TRAFFIC CHECKER 06/16/2024 12:05 PM WATERWAY TRAFFIC CHECKER Lorene Prince MD LAB BLOOD ORDERABLES F inal Result Performing Organization Address [facility] Co de Phone Number [facility] Department [place] [address] * (ABNORMAL) CBC with auto differential (06/16/2024 11:52 AM WATERWAY TRAFFIC CHECKER) [facility] WBC 6.0 3.8 - 9.9 K/cumm Comment:Testing performed by : [facility], [address] [place] [phone] Hgb 12.1 11.9 - 15.5 g/dL [facility] Comment:Testing performed by : [facility], [address] [place] [phone] Hct 38.9 35.6 - 45.5 % [facility] Comment:Testing performed by : [facility], [address] [place] [phone] Plt 226 150 - 400 K/cumm [facility] Comment:Testing performed by : [facility], [address] [place] [phone] MPV 9.0 6.8 - 10.4 fL [facility] Comment:Testing performed by : [facility], [address] [place] [phone] RBC 5.17 3.90 - 5.20 M/cumm [facility] Comment:Testing performed by : [facility], [address] [place], [place] [phone] MCV 75.3(L) 81.3 - 96.4 fL [facility] Comment:Testing performed by : [facility], [address] [place], [place] [phone] MCH 23.4(L) 27.1 - 33.3 pg [facility] Comment:Testing performed by : [facility], [address] [place], [place] [phone] MCHC 31.1(L) 32.3 - 35.7 g/dL [facility] Comment:Testing performed by : [facility], [address] [place], [place] [phone] RDW CV 18.5(H) 11.1 - 14.9 % [facility] Comment:Testing performed by : [facility], [address] [place], [place] [phone] NRBC abs 0.00 0.00 - 0.01 K/cumm [facility] Comment:Testing performed by : [facility], [address] [place] [address] Blood 06/16/2024 11:5 2 AM WATERWAY TRAFFIC CHECKER 06/16/2024 12:03 PM WATERWAY TRAFFIC CHECKER us Lorene Prince MD LAB BLOOD ORDERABLES F inal Result [facility] Department [place] [address] * Lipid panel (06/16/2024 11:52 AM WATERWAY TRAFFIC CHECKER) Cholesterol 156 30 - 199 mg/dL Comment: [...] revised on 2017. Triglycerides 108 <=149 mg/dL [facility] Comment: Interpretive Data Ages < or [...] revised on 2017. HDL 60 >=40 mg/dL [facility] Comment: Interpretive Data Ages < or [...] on 2017. LDL, calculated 77 <=129 mg/dL [facility] Comment: Interpretive Data Ages < or [...] Momo Sinha et al. NAOMY Cardiol. 2019September 04;5(5):540547. doi: 10.1001/jamacardio.2020.0013 Current Interpretive Data was last revised on 2023. Non-HDL Cholesterol 96 mg/dL [facility] Comment: Interpretive Data Ages < or [...] last revised on 2017. Chol/HDL ratio 3 [facility] Blood 06/16/2024 11:5 2 AM WATERWAY TRAFFIC CHECKER 06/16/2024 12:05 PM WATERWAY TRAFFIC CHECKER Lorene Prince MD LAB BLOOD ORDERABLES F inal Result [facility] Department [place] [address] * (ABNORMAL) Comprehensive metabolic panel (06/16/2024 11:52 AM WATERWAY TRAFFIC CHECKER) Sodium 142 135 - 145 mmol/L Potassium, pl 4.0 3.3 - 4.9 mmol/L [facility] Chloride 105 97 - 110 mmol/L [facility] CO2 30 22 - 32 mmol/L [facility] Anion gap 7 2 - 15 mmol/L [facility] BUN 12 6 - 25 mg/dL [facility] Creatinine 1.17(H) 0.60 - 1.10 mg/dL [facility] Glucose 131 70 - 199 mg/dL [facility] Comment: Interpretive Data Fasting glucose >/= [...] Calcium 9.4 8.5 - 10.3 mg/dL [facility] Bilirubin, total 0.6 0.1 - 1.2 mg/dL [facility] Protein, pl 7.1 6.5 - 8.5 g/dL [facility] Albumin 3.9 3.5 - 5.0 g/dL [facility] Alk phos 75 40 - 130 Units/L [facility] ALT 22 7 - 45 Units/L [facility] AST 33 10 - 45 Units/L [facility] Blood 06/16/2024 11:5 2 AM WATERWAY TRAFFIC CHECKER 06/16/2024 12:05 PM WATERWAY TRAFFIC CHECKER us Lorene Prince MD LAB BLOOD ORDERABLES F inal Result [facility] Department [place] [address] * [place] ARTHROCENTESIS ASPIR&/INJ SMALL JT/BURSA W/O US (06/04/2024 1:30 PM WATERWAY TRAFFIC CHECKER) Narrative Govind Yee MD - 06/04/2024 1:30 PM WATERWAY TRAFFIC CHECKER Govind Yee MD 06/04/2024 5:59 PM Small [...] Result * [employer] Results (05/20/2024 1:27 PM WATERWAY TRAFFIC CHECKER) Provider Scanning AUDIOLOGY SERVICES ORDERABLES Final Result * Protein / creatinine ratio, urine, random (05/05/2024 9:29 AM WATERWAY TRAFFIC CHECKER) Pathologist [facility] Protein, ur, quant 7.2 mg/dL Comment: Interpretive Data No reference range established. Current interpretive data was last revised 2018. Creatinine Ur 72.4 mg/dL [facility] Comment: Interpretive Data No reference range established. Current interpretive data was last revised 2018. Protein/creatinin e ratio 99.4 0.0 - 180.0 mg/g CR [facility] Urine 05/05/2024 9:29 AM WATERWAY TRAFFIC CHECKER 05/05/2024 9:50 AM WATERWAY TRAFFIC CHECKER Lorene Prince MD LAB URINE ORDERABLES F inal Result [facility] [place] [address] * (ABNORMAL) eGFR (05/05/2024 9:18 AM WATERWAY TRAFFIC CHECKER) eGFR 53(L) >=60 mL/min/1. 73 m2 Comment: [...] last reviewed 2021. Blood 05/05/2024 9:18 AM WATERWAY TRAFFIC CHECKER 05/05/2024 9:22 AM WATERWAY TRAFFIC CHECKER us Lorene Prince MD LAB BLOOD ORDERABLES F inal Result [facility] Department [place] [address] * Differential, auto (05/05/2024 9:18 AM WATERWAY TRAFFIC CHECKER) Pathologist [facility] Neutrophil abs 3.3 1.5 - 6.5 K/cumm Comment:Testing performed by : [facility], [address] [place] [phone] Lymphocyte abs 2.7 0.8 - 3.3 K/cumm [facility] Comment:Testing performed by : [facility], [address] [place] [phone] Monocyte abs 0.6 0.2 - 0.8 K/cumm [facility] Comment:Testing performed by : [facility], [address] [place] [phone] Eosinophil abs 0.1 0.0 - 0.5 K/cumm [facility] Comment:Testing performed by : [facility], [address] [place] [phone] Basophil abs 0.1 0.0 - 0.1 K/cumm [facility] Comment:Testing performed by : [facility], [address] [place] [phone] Neutrophil pct 48.3 % [facility] Comment: Interpretive Data Percent cell count reference ranges are not reported, since discordance with absolute values may lead to misinterpretation of CBC data. Current Interpretive Data was last revised on 2017. Testing performed by: [facility], [address] [place] [phone] Lymphocyte pct 40.1 % [facility] Comment: Interpretive Data Percent cell count reference ranges are not reported, since discordance with absolute values may lead to misinterpretation of CBC data. Current Interpretive Data was last revised on 2017. Testing performed by: [facility], [address] [place] [phone] Monocyte pct 8.1 % [facility] Comment: Interpretive Data Percent cell count reference ranges are not reported, since discordance with absolute values may lead to misinterpretation of CBC data. Current Interpretive Data was last revised on 2017. Testing performed by: [facility], [address] [place] [phone] Eosinophil pct 1.6 % [facility] Comment: Interpretive Data Percent cell count reference ranges are not reported, since discordance with absolute values may lead to misinterpretation of CBC data. Current Interpretive Data was last revised on 2017. Testing performed by: [facility], [address] [place] [phone] Basophil pct 1.9 % [facility] Comment: Interpretive Data Percent cell count reference ranges are not reported, since discordance with absolute values may lead to misinterpretation of CBC data. Current Interpretive Data was last revised on 2017. Testing performed by: [facility], [address] [place] [phone] Blood 05/05/2024 9:18 AM WATERWAY TRAFFIC CHECKER 05/05/2024 9:21 AM WATERWAY TRAFFIC CHECKER us Lorene Prince MD LAB BLOOD ORDERABLES F inal Result Performing Organization Address City/[facility] Co de Phone Number [facility] [place] [address] * Thyroid Function [place] (05/05/2024 9:18 AM WATERWAY TRAFFIC CHECKER) Pathologist [facility] TSH 1.97 0.30 - 4.20 mcIUnit/mL Blood 05/05/2024 9:18 AM WATERWAY TRAFFIC CHECKER 05/05/2024 9:22 AM WATERWAY TRAFFIC CHECKER us Lorene Prince MD LAB BLOOD ORDERABLES F inal Result Performing Organization Address [facility] de Phone Number [facility] Department [place] [address] * (ABNORMAL) CBC with auto differential (05/05/2024 9:18 AM WATERWAY TRAFFIC CHECKER) [facility] WBC 6.8 3.8 - 9.9 K/cumm Comment:Testing performed by : [facility], [address] [place] [address] Hgb 12.9 11.9 - 15.5 g/dL [facility] Comment:Testing performed by : [facility], [address] [place] [address] Hct 40.4 35.6 - 45.5 % [facility] Comment:Testing performed by : [facility], [address] [place] [phone] Plt 256 150 - 400 K/cumm [facility] Comment:Testing performed by : [facility], [address] [place] [address] MPV 8.8 6.8 - 10.4 fL [facility] Comment:Testing performed by : [facility], [address] [place] [address] RBC 5.37(H) 3.90 - 5.20 M/cumm [facility] Comment:Testing performed by : [facility], [address] [place] [phone] MCV 75.3(L) 81.3 - 96.4 fL [facility] Comment:Testing performed by : [facility], [address] [place], [place] [phone] MCH 23.9(L) 27.1 - 33.3 pg [facility] Comment:Testing performed by : [facility], [address] [place], [place] [phone] MCHC 31.8(L) 32.3 - 35.7 g/dL [facility] Comment:Testing performed by : [facility], [address] [place], [place] [phone] RDW CV 18.8(H) 11.1 - 14.9 % [facility] Comment:Testing performed by : [facility], [address] [place], [place] [phone] NRBC abs 0.00 0.00 - 0.01 K/cumm [facility] Comment:Testing performed by : [facility], [address] [place], [place] [phone] Blood 05/05/2024 9:18 AM WATERWAY TRAFFIC CHECKER 05/05/2024 9:21 AM WATERWAY TRAFFIC CHECKER us Lorene Prince MD LAB BLOOD ORDERABLES F inal Result [facility] Department [place] [address] * Lipid panel (05/05/2024 9:18 AM WATERWAY TRAFFIC CHECKER) Cholesterol 153 30 - 199 mg/dL Comment: [...] revised on 2017. Triglycerides 131 <=149 mg/dL [facility] Comment: Interpretive Data Ages < or [...] revised on 2017. HDL 61 >=40 mg/dL [facility] Comment: Interpretive Data Ages < or [...] on 2017. LDL, calculated 69 <=129 mg/dL [facility] Comment: Interpretive Data Ages < or [...] revised on 2023. Non-HDL Cholesterol 92 mg/dL [facility] Comment: Interpretive Data Ages < or [...] last revised on 2017. Chol/HDL ratio 3 [facility] Blood 05/05/2024 9:18 AM WATERWAY TRAFFIC CHECKER 05/05/2024 9:22 AM WATERWAY TRAFFIC CHECKER us Lorene Prince MD LAB BLOOD ORDERABLES F inal Result [facility] Department [place] [address] * (ABNORMAL) Comprehensive metabolic panel (05/05/2024 9:18 AM WATERWAY TRAFFIC CHECKER) Sodium 139 135 - 145 mmol/L Potassium, pl 4.2 3.3 - 4.9 mmol/L [facility] Chloride 102 97 - 110 mmol/L [facility] CO2 30 22 - 32 mmol/L [facility] Anion gap 7 2 - 15 mmol/L [facility] BUN 15 6 - 25 mg/dL [facility] Creatinine 1.14(H) 0.60 - 1.10 mg/dL [facility] Glucose 111 70 - 199 mg/dL [facility] Comment: Interpretive Data Fasting glucose >/= [...] Calcium 10.0 8.5 - 10.3 mg/dL [facility] Bilirubin, total 0.5 0.1 - 1.2 mg/dL [facility] Protein, pl 7.5 6.5 - 8.5 g/dL [facility] Albumin 4.0 3.5 - 5.0 g/dL [facility] Alk phos 75 40 - 130 Units/L [facility] ALT 24 7 - 45 Units/L [facility] AST 35 10 - 45 Units/L [facility] Blood 05/05/2024 9:18 AM WATERWAY TRAFFIC CHECKER 05/05/2024 9:22 AM WATERWAY TRAFFIC CHECKER us Lorene Prince MD LAB BLOOD ORDERABLES F inal Result [facility] Department [place] [address] * CT Chest Abdomen Pelvis W Contrast (05/02/2024 9:47 AM WATERWAY TRAFFIC CHECKER) Anatomical Region Laterality Modality Body N/A Computed Tomogra phy 05/02/2024 10:4 2 AM WATERWAY TRAFFIC CHECKER Impressions 05/02/2024 10:42 AM WATERWAY TRAFFIC CHECKER 1. Stable pulmonary metastatic disease. 2. No evidence of recurrent or metastatic disease in the abdomen or pelvis. Electronically signed by: Alix Coello M.D. Narrative 05/02/2024 10:42 AM WATERWAY TRAFFIC CHECKER EXAMINATION: Computed tomography of the chest, abdomen [...] abdomen or pelvis. Electronically signed by: Alix Ceollo M.D. Lorene Prince MD IMG CT PROCEDURES Autumn l Result * (ABNORMAL) POCT creatinine (05/02/2024 9:26 AM WATERWAY TRAFFIC CHECKER) Creatinine POC 1.2(H) 0.6 - 1.1 mg/dL Blood 05/02/2024 9:26 AM WATERWAY TRAFFIC CHECKER 05/02/2024 9:26 AM WATERWAY TRAFFIC CHECKER Lorene Prince MD LAB POCT ORDERABLES - DEVICE Final Result [facility] [place] [address] * SCREENING MAMMOGRAM BILATERAL W MONICA (10/04/2023 8:05 AM CDT) Anatomical Region Laterality Modality Breast Bilateral Mammography Narrative 10/04/2023 2:35 PM CDT Mammogram Technique: Bilateral Digital Breast Tomosynthesis, Bilateral C-view 2D Screening mammogram. Views obtained: bilateral craniocaudal and bilateral mediolateral oblique. Computer Aided Detection was performed. Mammogram Findings: The present examination has been compared to prior imaging studies performed at [facility] on 09/15/2011, 01/27/2014 and 10/31/2019, and at [facility] on 09/19/2022. There are scattered areas [...] compared to prior imaging studies performed at [facility] on 09/15/2011, 01/27/2014 and 10/31/2019, and at [facility] on 09/19/2022. 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 MF: JOVAN Report ID: [id number] Reading Location: [place] [address] Akhil Russo MD IMG DXA PROCEDURES Final Re sult * High Risk HPV DNA Detection with Genotyping (Molecular component) (04/11/2023 1:41 PM WATERWAY TRAFFIC CHECKER) HPV HR 16 Not Detected Not Detected [facility] Comment:Testing performed by : [facility], [address] [place]., [address] HPV HR 18 Not Detected Not Detected [facility] Comment:Testing performed by : [facility], [address] [facility], [address] HPV HR Non 16/18 Not Detected Not Detected [facility] Comment: Interpretive Data Nucleic acid [...] this test have been verified by the [facility] Molecular Infectious Disease laboratory. Correlate with separately reported cytology results, as applicable. Interpretive data last revised 22 Testing performed by: [facility], [address] [place]., [address] Endocervical 04/11/2023 1:41 PM WATERWAY TRAFFIC CHECKER 04/12/2023 3:01 PM WATERWAY TRAFFIC CHECKER Akhil Russo MD LAB BODY FLUIDS AND STOOLS ORDERABLES Final Result [facility] [address] [facility] Department [place] [address] * CT Colonography Diagnostic W Contrast (07/22/2021 [...] 01/03/2021 12:16 PM CDT us Carmen Fish ENTERPRISE RECORDS ANALYST LAB MICROBIOLOGY - GENER AL ORDERABLES Edited Result - Final [facility] [place] [address] from Last 3 Months or Most Recently Relevant to Health Maintenance Insurance [place] [id number] MEDICARE SOLUTIONS [place] [id number] MED[employer]ARE [employer] MED[employer]ARE [employer] MEDICARE SOL[employer]IONS Advance Directives For more information, please contact: [phone] * Full Code (Latest Code Status on [...] 5:18 PM 02/21/2021 4:10 PM Care Teams Manufacturing Accountant Relationship Specialty Start Date End Date Akhil Russo MD [address] [place] [address] PCP - General Family Medicine 11/29/21 Lorene Prince MD Medical Oncologist/Hematologis t Medical Oncology 01/31/21 Mili Mcleod NP [address] [place] [address] Nurse Practitioner Cardiovascular Disease 07/18/22 [place] [address] [place] [id number] Referring Physician Endocrinology Diabetes & Metabolism 08/20/23
--- OUTSIDE RECORDS SUMMARY | 2024-07-12 04:52 | XMS_ITS | Referral Summary ---
Author Organization [facility] Address [address] [place] [address] Care Team Providers Care Rn Cardiac Cath Name Role Phone Lorene Prince MD Unavailable [phone] Ahkil Russo MD Primary Care Provider [phone] Mili Mcleod NP Unavailable Guillermina Stokes MD Unavailable [phone] Encounters Date Type Department Care Team Description 06/20/2024 11:30 AM CERTIFICATION OFFICER Therapy [facility] Occupational Therapy [address] [facility] 6th [place] [address] [place] [address] Shante Roberts OT Chronic pain of right thumb (Primary Dx) 06/16/2024 11:45 AM CERTIFICATION OFFICER Lab [facility] - Lab Collection [address] [place] [address] Floor 5 [place] [address] Malignant neoplasm of left kidney (CMS/HCC) (HCC) 06/16/2024 12:00 PM CERTIFICATION OFFICER Lab [facility] Oncology Lab [address] [place] [address] Floor 5 [place] [address] Malignant neoplasm of left kidney (CMS/HCC) (HCC) 06/16/2024 1:00 PM CERTIFICATION OFFICER Office Visit [facility] Oncology [address] [place] [phone] Lorene Prince MD Malignant neoplasm of left kidney (CMS/HCC) (HCC) (Primary Dx); Malignant neoplasm of left kidney (HCC) 06/04/2024 Orders Only HEIN OS HAND/WRIST Scanning, Provider 06/04/2024 Plan of Care Documentation [facility] Occupational Therapy [address] [facility] 1st Floor [address] [place] [address] 06/04/2024 1:10 PM CERTIFICATION OFFICER Therapy [facility] Occupational Therapy [address] [facility] 1st Floor [address] [place] [address] Shante Roberts OT Chronic pain of right thumb (Primary Dx) 06/04/2024 1:30 PM CERTIFICATION OFFICER Office Visit [facility] Orthopaedic Surgery [address] [facility] 2nd Floor [address] [place] [address] Govind Yee MD Arthritis of carpometacarpal (CMC) joint of right thumb (Primary Dx); Malignant neoplasm of left kidney (CMS/HCC) (HCC) 06/02/2024 Documentation [facility] [place] [facility] [address] [place] [address] Floor 6 [place] [address] Barbi Lynn [facility] 05/20/2024 1:20 PM CERTIFICATION OFFICER Procedure visit [facility] Otol[facility]ology [facility], [address] [place] [address] Mixed conductive and sensorineural hearing loss of left ear with restricted hearing of right ear (Primary Dx); Sensorineural hearing loss (SNHL) of right ear with restricted hearing of left ear 05/20/2024 1:20 PM CERTIFICATION OFFICER Office Visit [facility] Otol[facility]ology [facility], [address] [place] [address] Goyo Salinas MD Chronic diffuse otitis externa of left ear (Primary Dx); 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 05/13/2024 Telephone [facility] Oncology [address] [place] [address] 5 [place] [address] Lorene Prince MD 05/13/2024 Telephone [facility] Oncology [address] [place] [address] 5 [place] [phone] Lorene Prince MD 05/09/2024 Telephone [facility] Oncology [address] [place] [address] Floor 5 [place] [address] Lorene Prince MD 05/08/2024 Telephone [facility] Oncology [address] [place] [address] Floor 5 [place] [address] Lorene Prince MD 05/08/2024 Telephone [facility] Oncology [address] [facility] [address] [place] [address] Pam Vance, RMA Ear Drainage 05/08/2024 Telephone [facility] Oncology [address] [place] [address] Floor 5 [place] [address] Lorene Prince MD 05/05/2024 9:15 AM CERTIFICATION OFFICER Lab [facility] - Lab Collection [address] [place] [address] Floor 5 [place] [address] Malignant neoplasm of left kidney (CMS/HCC) (HCC) 05/05/2024 10:30 AM CERTIFICATION OFFICER Office Visit [facility] Oncology [address] [place] [address] Floor 5 [place] [address] Lorene Prince MD Malignant neoplasm of left kidney (CMS/HCC) (HCC) (Primary Dx); Malignant neoplasm of left kidney (HCC) 05/05/2024 9:30 AM CERTIFICATION OFFICER Lab [facility] Oncology Lab [address] [place] [address] Floor 5 [place] [address] Malignant neoplasm of left kidney (CMS/HCC) (HCC) 05/02/2024 Telephone [facility] Oncology [address] [place] [address] Floor 5 [place] [address] Lorene Prince MD 05/02/2024 9:14 AM CERTIFICATION OFFICER - 05/02/2024 11:59 PM CERTIFICATION OFFICER Hospital Encounter [facility] [place] [facility] [place] [address] [facility] Floor 8 [place] [address] Malignant neoplasm of left kidney (CMS/HCC) (HCC) Discharge Disposition: Discharge to home or self care 04/23/2024 Telephone [facility] Oncology [address] [place] [address] Floor 6 [place] [address] Lorene Prince MD 04/23/2024 Telephone [facility] Oncology [address] [facility] Floor 6 [place] [address] Lorene Prince MD 04/22/2024 11:30 AM CERTIFICATION OFFICER Office Visit [facility] Cardiology [address] 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 Assessment & Plan (04/05/2022 12:32 AM CERTIFICATION OFFICER): - Pt c/o dehydration and lightheadedness on exam - CTH was unremarkable for any acute intracranial abnormalities. No orthostatis noted on exam - c/w LR @ 75 ml/hr Bacteriuria 04/05/2022 Assessment & Plan (04/05/2022 12:39 AM CERTIFICATION OFFICER): - UA was + for LE and trace Bacteria, given immunocompromised status, will start on Cefepime IV 2g q12h pending cultures - Taper coverage based on c&s Headache 04/05/2022 Assessment & Plan (04/05/2022 12:40 AM CERTIFICATION OFFICER): - Pt c/o intermittent headaches and lightheadedness on exam. Given hx of mets CTH was obtained which was unremarkable for any acute intracranial abnormalities. Seasonal allergies 04/05/2022 Assessment & Plan (04/05/2022 12:40 AM CERTIFICATION OFFICER): - c/w Flonase nasal spray MARAVILLA (dyspnea on exertion) 04/05/2022 Assessment & Plan (04/05/2022 12:48 AM CERTIFICATION OFFICER): - Pt c/o dyspnea on exertion , can likely be related to metastatic disease progression - EKG was unremarkable on admission while Trop and BNP were also WNL - TTE donw previously in 12/2020 was remarkable for LVEf of 54% with limited study - Plan to repeat TTE Diarrhea in adult patient 04/04/2022 Assessment & Plan (04/05/2022 12:37 AM CERTIFICATION OFFICER): - Pt presented with worsening NB , [...] 11/30/2021 Assessment & Plan (03/19/2024 10:38 AM CERTIFICATION OFFICER): A(n) yearly Medicare Annual Wellness Visit has [...] OK Assessment & Plan (07/08/2022 12:17 PM CERTIFICATION OFFICER): TSH 0.17 uIU/ml, normal T4 Thyroid dosing has been adjusted, awaiting repeat Assessment & Plan (04/05/2022 12:34 AM CERTIFICATION OFFICER): - c/w Synthroid 100 mcg po qam [...] zoloft Assessment & Plan (04/05/2022 12:37 AM CERTIFICATION OFFICER): - c/w Sertraline 25 mg po every [...] -Total spine MRI was ordered in [facility] and completed --> Posterior T12 Vertebral [...] -Total spine MRI was ordered in [facility] and completed, read pending -Will start [...] 02/18/2021 Assessment & Plan (04/05/2022 12:34 AM CERTIFICATION OFFICER): - Pt c/o worsening SOB which can [...] dehydration Assessment & Plan (07/08/2022 12:18 PM CERTIFICATION OFFICER): Renal function decreased, GFR at 42 Creatinine 1.39 Advised on hydration Assessment & Plan (04/05/2022 12:34 AM CERTIFICATION OFFICER): - c/w Toprol XL 50 mg po [...] recurrence. Assessment & Plan (04/05/2022 12:31 AM CERTIFICATION OFFICER): - Pt was diagnosed with left renal [...] 07/18/2023 Assessment & Plan (04/05/2022 12:39 AM CERTIFICATION OFFICER): - Pt has documented hx of PE, has been off AC for over 3 months Total perforation of left tympanic membrane 09/12/2021 02/10/2022 Overview (09/12/2021): Added automatically from request for surgery [id number] Left renal mass 01/03/2019 01/24/2019 Overview (01/03/2019): Added automatically from request for surgery [id number] Immunizations Immunization Administration Dates Next Due Influenza, [...] drink = 0.6 oz pur e alcohol) [facility] Utilities Answer Date Recorded In the past 12 months has e [employer], gas, oil, or water [employer] threatened to shut off services in your [...] How often do you attend chur or shinto services? Patient unable to answer 09/04/2023 Do [...] place to sleep or slept in a intermediate (including now)? Patient unable to answer 09/04/2023 [...] on file Legal Sex Female 8:31 AM CERTIFICATION OFFICER Gender Identity Female 12/08/2020 1:45 PM CDT Sexual Orientation Straight 01/22/2019 10 :49 AM CDT Last Filed Vital Signs Vital Sign Reading Time Taken Comments Blood Pressure 132/84 06/16/2024 12:41 PM CERTIFICATION OFFICER Pulse 93 06/16/2024 12:41 PM CERTIFICATION OFFICER Temperature 36.3 C (97.3 F) 06/16/2024 12:41 PM CERTIFICATION OFFICER Respiratory Rate 17 06/16/2024 12:41 PM CERTIFICATION OFFICER Oxygen Saturation 97% 06/16/2024 12:41 PM CERTIFICATION OFFICER Inhaled Oxygen Concentration - - Weight 73.9 kg (163 lb) 06/16/2024 12:41 PM CERTIFICATION OFFICER Height 160 cm (5' 3 ) 06/16/2024 12:41 PM CERTIFICATION OFFICER Body Mass Index 28.87 06/16/2024 12:41 PM CERTIFICATION OFFICER Plan of Treatment Not on file Procedures Procedure Name Priority Date/Time Associated Diagnosis Comments PROTEIN / CREATININE RATIO, URINE, RANDOM Routine 06/16/2024 12:05 PM CERTIFICATION OFFICER Malignant neoplasm of left kidney (CMS/HCC) (HCC) EGFR Routine 06/16/2024 11:52 AM CERTIFICATION OFFICER Malignant neoplasm of left kidney (HCC) DIFFERENTIAL AUTO Routine 06/16/2024 11:52 AM CERTIFICATION OFFICER Malignant neoplasm of left kidney (HCC) THYROID FUNCTION CASCADE Routine 06/16/2024 11:52 AM CERTIFICATION OFFICER Malignant neoplasm of left kidney (CMS/HCC) (HCC) CBC WITH AUTO DIFFERENTIAL Routine 06/16/2024 11:52 AM CERTIFICATION OFFICER Malignant neoplasm of left kidney (CMS/HCC) (HCC) COMPREHENSIVE METABOLIC PANEL Routine 06/16/2024 11:52 AM CERTIFICATION OFFICER Malignant neoplasm of left kidney (CMS/HCC) (HCC) LIPID PANEL Routine 06/16/2024 11:52 AM CERTIFICATION OFFICER Malignant neoplasm of left kidney (CMS/HCC) (HCC) OR ARTHROCENTESIS ASPIR&/INJ SMALL JT/BURSA W/O US Routine 06/04/2024 1:30 PM CERTIFICATION OFFICER Arthritis of carpometacarpal (CMC) joint of right thumb SCAN - RADIOLOGY/IMAGING 06/04/2024 AUDBASE RESULTS 05/20/2024 1:27 PM CERTIFICATION OFFICER PROTEIN / CREATININE RATIO, URINE, RANDOM Routine 05/05/2024 9:29 AM CERTIFICATION OFFICER Malignant neoplasm of left kidney (CMS/HCC) (HCC) EGFR Routine 05/05/2024 9:18 AM CERTIFICATION OFFICER Malignant neoplasm of left kidney (HCC) DIFFERENTIAL AUTO Routine 05/05/2024 9:1 8 AM CERTIFICATION OFFICER Malignant neoplasm of left kidney (HCC) THYROID FUNCTION CASCADE Routine 05/05/2024 9:18 AM CERTIFICATION OFFICER Malignant neoplasm of left kidney (CMS/HCC) (HCC) CBC WITH AUTO DIFFERENTIAL Routine 05/05/2024 9:18 AM CERTIFICATION OFFICER Malignant neoplasm of left kidney (CMS/HCC) (HCC) COMPREHENSIVE METABOLIC PANEL Routine 05/05/2024 9:18 AM CERTIFICATION OFFICER Malignant neoplasm of left kidney (CMS/HCC) (HCC) LIPID PANEL Routine 05/05/2024 9:18 AM CERTIFICATION OFFICER Malignant neoplasm of left kidney (CMS/HCC) (HCC) CT CHEST ABDOMEN PELVIS W CONTRAST Schedule Routine, Read Routine (OP Routine) 05/02/2024 9:47 AM CERTIFICATION OFFICER Malignant neoplasm of left kidney (CMS/HCC) (HCC) POCT CREATININE - DEVICE Routine 05/02/2024 9:26 AM CERTIFICATION OFFICER SCREENING MAMMOGRAM BILATERAL W MONICA Schedule Routine, Read Routine (OP Routine) 10/04/2023 8:05 AM CDT Screening mammogram for breast cancer DEXA AXIAL SKELETON BONE DENSITY 1 OR MORE SITES Schedule Routine, Read Routine (OP Routine) 07/26/2023 8:08 AM CDT Screening for osteoporosis custodial (current) use of immunomodulator HIGH RISK HPV DNA DETECTION WITH GENOTYPING Routine 04/11/2023 1:[address] VIRTUAL COLONOSCOPY DIAGNOSTIC W CONTRAST IP Routine 07/22/2021 2:35 PM CDT HEPATITIS C ANTIBODY Routine 01/03/2021 12:02 PM CDT Malignant neoplasm of left kidney (HCC) from Last 3 Months or Most Recently Relevant to Health Maintenance Results * Protein / creatinine ratio, urine, random (06/16/2024 12:05 PM CERTIFICATION OFFICER) Protein, ur, quant 7.6 mg/dL Comment: Interpretive Data No reference range established. Current interpretive data was last revised 2018. Creatinine Ur 79.8 mg/dL [facility] Comment: Interpretive Data No reference range established. Current interpretive data was last revised 2018. Protein/creatinin e ratio 95.2 0.0 - 180.0 mg/g CR [facility] Urine 06/16/2024 12:0 5 PM CERTIFICATION OFFICER 06/16/2024 12:44 PM CERTIFICATION OFFICER us Lorene Prince MD LAB URINE ORDERABLES F inal Result [facility] Department [place] [address] * (ABNORMAL) eGFR (06/16/2024 11:52 AM CERTIFICATION OFFICER) Pathologist [facility] Emergency Department eGFR 52(L) >=60 mL/min/1. 73 [...] reviewed 2021. Blood 06/16/2024 11:5 2 AM CERTIFICATION OFFICER 06/16/2024 12:05 PM CERTIFICATION OFFICER us Lorene Prince MD LAB BLOOD ORDERABLES F inal Result [facility] Department [place] [address] * Differential, auto (06/16/2024 11:52 AM CERTIFICATION OFFICER) Pathologist [facility] Emergency Department Neutrophil abs 3.4 1.5 - 6.5 K/cumm Comment:Testing performed by : [facility], [address] [place] [phone] Lymphocyte abs 2.1 0.8 - 3.3 K/cumm [facility] Comment:Testing performed by : [facility], [address] [place] [phone] Monocyte abs 0.4 0.2 - 0.8 K/cumm [facility] Comment:Testing performed by : [facility] Heme Lab, [address] [place] [phone] Eosinophil abs 0.1 0.0 - 0.5 K/cumm [facility] Comment:Testing performed by : [facility]e [facility], [address] [place] [phone] Basophil abs 0.1 0.0 - 0.1 K/cumm [facility] Comment:Testing performed by : [facility]e [facility], [address] [place] [phone] Neutrophil pct 56.2 % [facility] Comment: Interpretive Data Percent cell count reference ranges are not reported, since discordance with absolute values may lead to misinterpretation of CBC data. Current Interpretive Data was last revised on 2017. Testing performed by: [facility], [address] [place] [phone] Lymphocyte pct 34.4 % [facility] Comment: Interpretive Data Percent cell count reference ranges are not reported, since discordance with absolute values may lead to misinterpretation of CBC data. Current Interpretive Data was last revised on 2017. Testing performed by: [facility], [address] [place] [phone] Monocyte pct 6.8 % [facility] Comment: Interpretive Data Percent cell count reference ranges are not reported, since discordance with absolute values may lead to misinterpretation of CBC data. Current Interpretive Data was last revised on 2017. Testing performed by: [facility]e [facility], [address] [place] [phone] Eosinophil pct 1.6 % [facility] Comment: Interpretive Data Percent cell count reference ranges are not reported, since discordance with absolute values may lead to misinterpretation of CBC data. Current Interpretive Data was last revised on 2017. Testing performed by: [facility], [address] [place] [phone] Basophil pct 1.0 % [facility] Comment: Interpretive Data Percent cell count reference ranges are not reported, since discordance with absolute values may lead to misinterpretation of CBC data. Current Interpretive Data was last revised on 2017. Testing performed by: [facility]e [facility], [address] [place] [phone] Blood 06/16/2024 11:5 2 AM CERTIFICATION OFFICER 06/16/2024 12:03 PM CERTIFICATION OFFICER Lorene Prince MD LAB BLOOD ORDERABLES F inal Result Performing Organization Address City/[facility] Co de Phone Number [facility] Department [place] [address] * Thyroid Function [place] (06/16/2024 11:52 AM CERTIFICATION OFFICER) TSH 0.66 0.30 - 4.20 mcIUnit/mL Blood 06/16/2024 11:5 2 AM CERTIFICATION OFFICER 06/16/2024 12:05 PM CERTIFICATION OFFICER Lorene Prince MD LAB BLOOD ORDERABLES F inal Result Performing Organization Address [facility] Co de Phone Number [facility] Department [place] [address] * (ABNORMAL) CBC with auto differential (06/16/2024 11:52 AM CERTIFICATION OFFICER) WBC 6.0 3.8 - 9.9 K/cumm Comment:Testing performed by : [facility] Heme Lab, [address] [place] [phone] Hgb 12.1 11.9 - 15.5 g/dL [facility] Comment:Testing performed by : [facility] Heme Lab, [address] [place] [phone] Hct 38.9 35.6 - 45.5 % [facility] Comment:Testing performed by : [facility]e Lab, [address] [place] [phone] Plt 226 150 - 400 K/cumm [facility] Comment:Testing performed by : [facility]e Lab, [address] [place] [phone] MPV 9.0 6.8 - 10.4 fL [facility] Comment:Testing performed by : [facility] Heme Lab, [address] [place] [address] RBC 5.17 3.90 - 5.20 M/cumm [facility] Comment:Testing performed by : [facility]e Lab, [address] [place] [address] MCV 75.3(L) 81.3 - 96.4 fL [facility] Comment:Testing performed by : [facility]e Lab, [address] [place] [address] MCH 23.4(L) 27.1 - 33.3 pg [facility] Comment:Testing performed by : [facility]e Lab, [address] [place] [address] MCHC 31.1(L) 32.3 - 35.7 g/dL [facility] Comment:Testing performed by : [facility]e Lab, [address] [place] [address] RDW CV 18.5(H) 11.1 - 14.9 % [facility] Comment:Testing performed by : [facility]e Lab, [address] [place] [address] NRBC abs 0.00 0.00 - 0.01 K/cumm [facility] Comment:Testing performed by : [facility] Lab, [address] [place] [address] Blood 06/16/2024 11:5 2 AM CERTIFICATION OFFICER 06/16/2024 12:03 PM CERTIFICATION OFFICER us Lorene Prince MD LAB BLOOD ORDERABLES F inal Result [facility] Department [place] [address] * Lipid panel (06/16/2024 11:52 AM CERTIFICATION OFFICER) Cholesterol 156 30 - 199 mg/dL Comment: [...] on 2017. Triglycerides 108 <=149 mg/dL [facility] Comment: Interpretive Data Ages < or [...] on 2017. HDL 60 >=40 mg/dL [facility] Comment: Interpretive Data Ages < or [...] 2017. LDL, calculated 77 <=129 mg/dL [facility] Comment: Interpretive Data Ages < or [...] revised on 2023. Non-HDL Cholesterol 96 mg/dL [facility] Comment: Interpretive Data Ages < or [...] last revised on 2017. Chol/HDL ratio 3 [facility] Blood 06/16/2024 11:5 2 AM CERTIFICATION OFFICER 06/16/2024 12:05 PM CERTIFICATION OFFICER us Lorene Prince MD LAB BLOOD ORDERABLES F inal Result [facility] Department [place] [address] * (ABNORMAL) Comprehensive metabolic panel (06/16/2024 11:52 AM CERTIFICATION OFFICER) Sodium 142 135 - 145 mmol/L Potassium, pl 4.0 3.3 - 4.9 mmol/L [facility] Chloride 105 97 - 110 mmol/L [facility] CO2 30 22 - 32 mmol/L [facility] Anion gap 7 2 - 15 mmol/L [facility] BUN 12 6 - 25 mg/dL [facility] Creatinine 1.17(H) 0.60 - 1.10 mg/dL [facility] Glucose 131 70 - 199 mg/dL [facility] Comment: Interpretive Data Fasting glucose >/= [...] 2022. Calcium 9.4 8.5 - 10.3 mg/dL [facility] Bilirubin, total 0.6 0.1 - 1.2 mg/dL [facility] Protein, pl 7.1 6.5 - 8.5 g/dL [facility] Albumin 3.9 3.5 - 5.0 g/dL [facility] Alk phos 75 40 - 130 Units/L [facility] ALT 22 7 - 45 Units/L [facility] AST 33 10 - 45 Units/L [facility] Blood 06/16/2024 11:5 2 AM CERTIFICATION OFFICER 06/16/2024 12:05 PM CERTIFICATION OFFICER us Lorene Prince MD LAB BLOOD ORDERABLES F inal Result [facility] Department [place] [address] * OR ARTHROCENTESIS ASPIR&/INJ SMALL JT/BURSA W/O US (06/04/2024 1:30 PM CERTIFICATION OFFICER) Narrative Govind Yee MD - 06/04/2024 1:30 PM CERTIFICATION OFFICER Govind Yee MD 06/04/2024 5:59 PM Small [...] Result * [employer] Results (05/20/2024 1:27 PM CERTIFICATION OFFICER) Provider Scanning AUDIOLOGY SERVICES ORDERABLES Final Result * Protein / creatinine ratio, urine, random (05/05/2024 9:29 AM CERTIFICATION OFFICER) Protein, ur, quant 7.2 mg/dL Comment: Interpretive Data No reference range established. Current interpretive data was last revised 2018. Creatinine Ur 72.4 mg/dL [facility] Comment: Interpretive Data No reference range established. Current interpretive data was last revised 2018. Protein/creatinin e ratio 99.4 0.0 - 180.0 mg/g CR [facility] Urine 05/05/2024 9:29 AM CERTIFICATION OFFICER 05/05/2024 9:50 AM CERTIFICATION OFFICER Lorene Prince MD LAB URINE ORDERABLES F inal Result Performing Organization Address City/[facility] Co de Phone Number [facility] Department [place] [address] * (ABNORMAL) eGFR (05/05/2024 9:18 AM CERTIFICATION OFFICER) eGFR 53(L) >=60 mL/min/1. 73 m2 Comment: [...] last reviewed 2021. Blood 05/05/2024 9:18 AM CERTIFICATION OFFICER 05/05/2024 9:22 AM CERTIFICATION OFFICER Lorene Prince MD LAB BLOOD ORDERABLES F inal Result Performing Organization Address City/[facility] Co de Phone Number MOIRA PIPER [facility] Department [place] [address] * Differential, auto (05/05/2024 9:18 AM CERTIFICATION OFFICER) Neutrophil abs 3.3 1.5 - 6.5 K/cumm Comment:Testing performed by : [facility], [address] [place] [phone] Lymphocyte abs 2.7 0.8 - 3.3 K/cumm [facility] Comment:Testing performed by : [facility], [address] [place] [address] Monocyte abs 0.6 0.2 - 0.8 K/cumm [facility] Comment:Testing performed by : [facility], [address] [place] [phone] Eosinophil abs 0.1 0.0 - 0.5 K/cumm [facility] Comment:Testing performed by : [facility], [address] [place] [phone] Basophil abs 0.1 0.0 - 0.1 K/cumm [facility] Comment:Testing performed by : [facility], [address] [place] [phone] Neutrophil pct 48.3 % [facility] Comment: Interpretive Data Percent cell count reference ranges are not reported, since discordance with absolute values may lead to misinterpretation of CBC data. Current Interpretive Data was last revised on 2017. Testing performed by: [facility], [address] [place] [phone] Lymphocyte pct 40.1 % [facility] Comment: Interpretive Data Percent cell count reference ranges are not reported, since discordance with absolute values may lead to misinterpretation of CBC data. Current Interpretive Data was last revised on 2017. Testing performed by: [facility], [address] [place] [phone] Monocyte pct 8.1 % [facility] Comment: Interpretive Data Percent cell count reference ranges are not reported, since discordance with absolute values may lead to misinterpretation of CBC data. Current Interpretive Data was last revised on 2017. Testing performed by: [facility], [address] [place] [phone] Eosinophil pct 1.6 % [facility] Comment: Interpretive Data Percent cell count reference ranges are not reported, since discordance with absolute values may lead to misinterpretation of CBC data. Current Interpretive Data was last revised on 2017. Testing performed by: [facility], [address] [place] [phone] Basophil pct 1.9 % [facility] Comment: Interpretive Data Percent cell count reference ranges are not reported, since discordance with absolute values may lead to misinterpretation of CBC data. Current Interpretive Data was last revised on 2017. Testing performed by: [facility], [address] [place] [phone] Blood 05/05/2024 9:18 AM CERTIFICATION OFFICER 05/05/2024 9:21 AM CERTIFICATION OFFICER Lorene Prince MD LAB BLOOD ORDERABLES F inal Result Performing Organization Address [facility] Co de Phone Number [facility] [place] [address] * Thyroid Function [place] (05/05/2024 9:18 AM CERTIFICATION OFFICER) TSH 1.97 0.30 - 4.20 mcIUnit/mL Blood 05/05/2024 9:18 AM CERTIFICATION OFFICER 05/05/2024 9:22 AM CERTIFICATION OFFICER Lorene Prince MD LAB BLOOD ORDERABLES F inal Result Performing Organization Address [facility] de Phone Number [facility] [place] [address] * (ABNORMAL) CBC with auto differential (05/05/2024 9:18 AM CERTIFICATION OFFICER) WBC 6.8 3.8 - 9.9 K/cumm Comment:Testing performed by : [facility], [address] [place] [phone] Hgb 12.9 11.9 - 15.5 g/dL MOIRA PIPER Comment:Testing performed by : [facility], [address] [place] [phone] Hct 40.4 35.6 - 45.5 % MOIRA PIPER Comment:Testing performed by : [facility], [address] [place] [phone] Plt 256 150 - 400 K/cumm [facility] Comment:Testing performed by : [facility], [address] [place], [place] [phone] MPV 8.8 6.8 - 10.4 fL MOIRA PIPER Comment:Testing performed by : [facility], [address] [place], [place] [phone] RBC 5.37(H) 3.90 - 5.20 M/cumm MOIRA PIPER Comment:Testing performed by : [facility], [address] [place], [place] [phone] MCV 75.3(L) 81.3 - 96.4 fL MO[facility]A [facility] Comment:Testing performed by : [facility], [address] [place], [place] [phone] MCH 23.9(L) 27.1 - 33.3 pg MO[facility]A [facility] Comment:Testing performed by : [facility], [address] [place], [place] [phone] MCHC 31.8(L) 32.3 - 35.7 g/dL MO[facility] Comment:Testing performed by : [facility], [address] [place], [place] [phone] RDW CV 18.8(H) 11.1 - 14.9 % MOIRA [facility] Comment:Testing performed by : [facility], [address] [place], [place] [phone] NRBC abs 0.00 0.00 - 0.01 K/cumm MO[facility]A [facility] Comment:Testing performed by : [facility], [address] [place], [place] [phone] Blood 05/05/2024 9:18 AM CERTIFICATION OFFICER 05/05/2024 9:21 AM CERTIFICATION OFFICER us Lorene Prince MD LAB BLOOD ORDERABLES F inal Result MOIRA [facility] Department [place] [address] * Lipid panel (05/05/2024 9:18 AM CERTIFICATION OFFICER) Cholesterol 153 30 - 199 mg/dL Comment: [...] revised on 2017. Triglycerides 131 <=149 mg/dL [facility] Comment: Interpretive Data Ages < or [...] revised on 2017. HDL 61 >=40 mg/dL [facility] Comment: Interpretive Data Ages < or [...] on 2017. LDL, calculated 69 <=129 mg/dL [facility] Comment: Interpretive Data Ages < or [...] revised on 2023. Non-HDL Cholesterol 92 mg/dL [facility] Comment: Interpretive Data Ages < or [...] last revised on 2017. Chol/HDL ratio 3 [facility] Blood 05/05/2024 9:18 AM CERTIFICATION OFFICER 05/05/2024 9:22 AM CERTIFICATION OFFICER us Lorene Prince MD LAB BLOOD ORDERABLES F inal Result [facility] Department of Laboratories [place], [place] [id number] * (ABNORMAL) Comprehensive metabolic panel (05/05/2024 9:18 AM CERTIFICATION OFFICER) Sodium 139 135 - 145 mmol/L Potassium, pl 4.2 3.3 - 4.9 mmol/L [facility] Chloride 102 97 - 110 mmol/L [facility] CO2 30 22 - 32 mmol/L [facility] Anion gap 7 2 - 15 mmol/L [facility] BUN 15 6 - 25 mg/dL [facility] Creatinine 1.14(H) 0.60 - 1.10 mg/dL [facility] Glucose 111 70 - 199 mg/dL [facility] Comment: Interpretive Data Fasting glucose >/= [...] 2022. Calcium 10.0 8.5 - 10.3 mg/dL [facility] Bilirubin, total 0.5 0.1 - 1.2 mg/dL [facility] Protein, pl 7.5 6.5 - 8.5 g/dL [facility] Albumin 4.0 3.5 - 5.0 g/dL [facility] Alk phos 75 40 - 130 Units/L [facility] ALT 24 7 - 45 Units/L [facility] AST 35 10 - 45 Units/L [facility] Blood 05/05/2024 9:18 AM CERTIFICATION OFFICER 05/05/2024 9:22 AM CERTIFICATION OFFICER Lorene Prince MD LAB BLOOD ORDERABLES F inal Result [facility] Department [place] [address] * CT Chest Abdomen Pelvis W Contrast (05/02/2024 9:47 AM CERTIFICATION OFFICER) Anatomical Region Laterality Modality Body N/A Computed Tomogra phy 05/02/2024 10:4 2 AM CERTIFICATION OFFICER Impressions 05/02/2024 10:42 AM CERTIFICATION OFFICER 1. Stable pulmonary metastatic disease. 2. No evidence of recurrent or metastatic disease in the abdomen or pelvis. Electronically signed by: Alix Coello M.D. Narrative 05/02/2024 10:42 AM CERTIFICATION OFFICER EXAMINATION: Computed tomography of the chest, abdomen [...] * (ABNORMAL) POCT creatinine (05/02/2024 9:26 AM CERTIFICATION OFFICER) Creatinine POC 1.2(H) 0.6 - 1.1 mg/dL Blood 05/02/2024 9:26 AM CERTIFICATION OFFICER 05/02/2024 9:26 AM CERTIFICATION OFFICER us Lorene Prince MD LAB POCT ORDERABLES - DEVICE Final Result MO[facility]A [facility] Department [place] [address] * SCREENING MAMMOGRAM BILATERAL W MONICA (10/04/2023 8:05 AM CDT) Anatomical Region Laterality Modality Breast Bilateral Mammography Narrative 10/04/2023 2:35 PM CDT Mammogram Technique: Bilateral Digital Breast Tomosynthesis, Bilateral C-view 2D Screening mammogram. Views obtained: bilateral craniocaudal and bilateral mediolateral oblique. Computer Aided Detection was performed. Mammogram Findings: The present examination has been compared to prior imaging studies performed at [facility] on 09/15/2011, 01/27/2014 and 10/31/2019, and at [facility] on 09/19/2022. There are scattered areas of [...] compared to prior imaging studies performed at [facility] on 09/15/2011, 01/27/2014 and 10/31/2019, and at [facility] on 09/19/2022. 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 MF: JOVAN Report ID: [id number] Reading Location: [id number] Akhil Russo MD IM DXA PROCEDURES Final Re sult * High Risk HPV DNA Detection with Genotyping (Molecular component) (04/11/2023 1:41 PM CERTIFICATION OFFICER) HPV HR 16 Not Detected Not Detected [facility]A Comment:Testing performed by : [facility], [address] [place]., [address] HPV HR 18 Not Detected Not Detected [facility] Comment:Testing performed by : [facility], [address] [place]., [address] HPV HR Non 16/18 Not Detected Not Detected [facility] Comment: Interpretive Data Nucleic acid [...] this test have been verified by the [facility] Molecular Infectious Disease laboratory. Correlate with separately reported cytology results, as applicable. Interpretive data last revised 22 Testing performed by: [facility], [address] [facility], [place]., [address] Endocervical 04/11/2023 1:41 PM CERTIFICATION OFFICER 04/12/2023 3:01 PM CERTIFICATION OFFICER us Akhil Russo MD LAB BODY FLUIDS AND STOOLS ORDERABLES Final Result Performing Organization Address City/State/[facility] Phone Number MOIRA BECERRIL [address] [facility] Department of Laboratories [place], [place] [id number] * CT Colonography Diagnostic W Contrast (07/22/2021 [...] by: Stephanie Barajas M.D. Lorene Prince MD [facility] CT PROCEDURES Autumn l Result * Hepatitis C antibody (01/03/2021 12:02 PM CDT) Hep C Ab Nonreactive Nonreactive [facility] Comment:Antibodies to HCV no t detected. Does NOT exclude the possibility of recent exposure to HCV. Blood 01/03/2021 12:0 2 PM CDT 01/03/2021 12:16 PM CDT us Carmen Fish MARKET DEVELOPMENT EXECUTIVE LAB MICROBIOLOGY - GENER AL ORDERABLES Edited Result - Final [facility] Department [place] [address] from Last 3 Months or Most Recently Relevant to Health Maintenance Insurance MEDICARE SOLUTIONS MEDICARE SOLUTIONS MEDICARE SOLUTIONS MEDICARE SOLUTIONS Member Subscriber Plan / Payer (Ef fective 2022-Present) Name:Jailyn Condon Relation to Subscriber:Self Name:Jailyn Condon Payer ID:[id number] (NAIC) Type:UHC MEDICARE Address: [place] [address] MEDICARE SOLUTIONS Advance Directives For more information, please contact: [phone] * Full Code (Latest Code Status on [...] 5:18 PM 02/21/2021 4:10 PM Care Teams Rn Cardiac Cath Relationship Specialty Start Date End Date Akhil Russo MD [address] [place] [address] PCP - General Family Medicine 11/29/21 Lorene Prince MD Medical Oncologist/Hematologis t Medical Oncology 01/31/21 Mili Mcleod NP [address] [place] [address] Nurse Practitioner Cardiovascular Disease 07/18/22 [place] [address] [place] [address] Referring Physician Endocrinology Diabetes & Metabolism 08/20/23
--- OUTSIDE RECORDS SUMMARY | 2024-07-12 04:52 | XMS_ITS | Encounter Summary ---
Author Organization [facility] Healthcare Address [address] [place] [address] Care Team Providers Care S3B Multi Sensor Operator Name Role Phone Unavailable Primary Care Provider Unavailabl e Reason for Visit * Diagnostic Imaging (Routine) - Closed Specialty Diagnoses / Procedures Referred By Contac t Referred To Contact Procedures Breast Imaging Screening Outside Reference Referral, Self Referral ID Status Reason Start Date Expiration Date Visits Re quested Visits Authorized [id number] Closed 10/05/2022 11/04/2023 1 1 Encounter Details Date Type Department Care Team (Late st Contact Info) Description 09/15/2011 Hospital Encounter [facility] [address] [place] [id number] Social History Tobacco Use Types Packs/Day Years Used Date Smoking Tobacco: Never Passive Smoke Exposure: Past Smokeless Tobacco: Never Alcohol Use Standard Drinks/Week Comments Never 0 (1 standard drink = 0.6 oz pur e alcohol) [facility] Utilities Answer Date Recorded In the past 12 months has [employer], gas, oil, or water [employer] threatened to shut off services in your [...] answer 09/04/2023 How often do you attend [facility] or alevism services? Patient unable to answer 09/04/2023 Do you belong to any clubs o r organizations such as holiness groups, unions, fraternal or athletic groups, or [...] on file Legal Sex Female 8:31 AM RETAIL BUSINESS DEVELOPMENT MANAGER Gender Identity Female 12/08/2020 1:45 PM CDT [...] only and have not been reviewed by [facility] Radiology. There will be no report generated by a [facility] Radiologist. Narrative [id number] - 10/05/2022 10:43 [...] C. difficile suspected 07/05/2023 07/05/2023 10:37 PM RETAIL BUSINESS DEVELOPMENT MANAGER COVID: Suspected 08/22/2023 08/22/2023 08/22/2023 5:03 PM CDT C. difficile suspected 08/22/2023 08/22/202308/22 3:06 AM CDT C. difficile suspected 09/01/2023 09/02/202309/04 3:05 AM CDT Norovirus suspected 09/01/2023 09/02/2023 09/05/19 3:05 AM CDT documented as of this encounter
--- OUTSIDE RECORDS SUMMARY | 2024-07-12 04:52 | XMS_ITS ---
Author Organization [facility] Address [address] [place] [address] Care Team Providers Care Rn Clinical Documentation Name Role Phone Lorene Prince MD Unavailable [phone] Akhil Russo MD Primary Care Provider Mili Mcleod NP Unavailable Guillermina Stokes MD Unavailable [phone] Active Problems Problem Noted Date Diagnosed Date [...] resolve. Assessment & Plan (04/05/2022 12:32 AM OCCUPATIONAL THER): - Pt c/o dehydration and lightheadedness on exam - CTH was unremarkable for any acute intracranial abnormalities. No orthostatis noted on exam - c/w LR @ 75 ml/hr Bacteriuria 04/05/2022 Assessment & Plan (04/05/2022 12:39 AM OCCUPATIONAL THER): - UA was + for LE and trace Bacteria, given immunocompromised status, will start on Cefepime IV 2g q12h pending cultures - Taper coverage based on c&s Headache 04/05/2022 Assessment & Plan (04/05/2022 12:40 AM OCCUPATIONAL THER): - Pt c/o intermittent headaches and lightheadedness on exam. Given hx of mets CTH was obtained which was unremarkable for any acute intracranial abnormalities. Seasonal allergies 04/05/2022 Assessment & Plan (04/05/2022 12:40 AM OCCUPATIONAL THER): - c/w Flonase nasal spray MARAVILLA (dyspnea on exertion) 04/05/2022 Assessment & Plan (04/05/2022 12:48 AM OCCUPATIONAL THER): - Pt c/o dyspnea on exertion , can likely be related to metastatic disease progression - EKG was unremarkable on admission while Trop and BNP were also WNL - TTE donw previously in 12/2020 was remarkable for LVEf of 54% with limited study - Plan to repeat TTE Diarrhea in adult patient 04/04/2022 Assessment & Plan (04/05/2022 12:37 AM OCCUPATIONAL THER): - Pt presented with worsening NB , [...] 11/30/2021 Assessment & Plan (03/19/2024 10:38 AM OCCUPATIONAL THER): A(n) yearly Medicare Annual Wellness Visit has [...] OK Assessment & Plan (07/08/2022 12:17 PM OCCUPATIONAL THER): TSH 0.17 uIU/ml, normal T4 Thyroid dosing has been adjusted, awaiting repeat Assessment & Plan (04/05/2022 12:34 AM OCCUPATIONAL THER): - c/w Synthroid 100 mcg po qam [...] zoloft Assessment & Plan (04/05/2022 12:37 AM OCCUPATIONAL THER): - c/w Sertraline 25 mg po every [...] meningitis -Total spine MRI was ordered in [facility] and completed --> Posterior T12 [...] meningitis -Total spine MRI was ordered in [facility] and completed, read pending -Will [...] 02/18/2021 Assessment & Plan (04/05/2022 12:34 AM OCCUPATIONAL THER): - Pt c/o worsening SOB which can [...] dehydration Assessment & Plan (07/08/2022 12:18 PM OCCUPATIONAL THER): Renal function decreased, GFR at 42 Creatinine 1.39 Advised on hydration Assessment & Plan (04/05/2022 12:34 AM OCCUPATIONAL THER): - c/w Toprol XL 50 mg po [...] recurrence. Assessment & Plan (04/05/2022 12:31 AM OCCUPATIONAL THER): - Pt was diagnosed with left renal [...] Treatment Medications Discontinue Reason Plan Provider Cycles [facility] [id number] Part 1 Arm A Nivolumab + Bempegaldesleukin + Axitinib 01/18/20 21 07/24/2022 [facility] (/ [id number]) Nivolumab/BMS -[id number] IVPB [facility] 50 mLINV-[facility] H (/ [id number]) NKTR-214 (BEMPEGALDESL EUKIN) IVPB in 50 mL () [facility] axitinib (/ [id number]) Progressive Disease Lorene Prince MD 24 of [...] 07/18/2023 Assessment & Plan (04/05/2022 12:39 AM OCCUPATIONAL THER): - Pt has documented hx of PE, has been off AC for over 3 months Total perforation of left tympanic membrane 09/12/2021 02/10/2022 Overview (09/12/2021): Added automatically from request for surgery [id number] Left renal mass 01/03/2019 01/24/2019 Overview (01/03/2019): Added automatically from request for surgery [id number]
[2024-07-12 04:53] LABS: Magnesium 2.2 mg/dL (1.6-2.3)
--- NOTE | 2024-07-12 05:06 | ED.GENADULT ---
HPI - General Adult General Chief complaint: Nausea/Vomiting/Diarrhea Stated complaint: n/v/d Time Seen by Provider: 07/12/24 04:36 History of Present Illness HPI narrative: Patient cyst 4-year-old female who presents emergency department with chief complaint of nausea vomiting diarrhea for last 3 days patient reports that she has history of renal cancer with lung Mets and is currently on oral chemo agents. The patient reports that she has had multiple bouts of vomiting multiple bouts of diarrhea patient actually brought in a sample of her stool with her to the emergency department. Patient reports she feels extremely dry and dehydrated. Related Data Home Medications ?Medication ?Instructions ?Recorded ?Confirmed ?Last Taken ?Type cetirizine 10 mg tablet 10 mg PO DAILY 02/23/20 09/27/21 03/01/20 History sennosides 8.6 mg-docusate sodium 1 tab-cap PO QHS 12/09/20 09/27/21 Unknown History 50 mg tablet Calcium Complete 1 tablet PO DAILY 05/15/21 09/27/21 Unknown History Daily Multi-Vitamin 1 tablet PO DAILY 05/15/21 09/27/21 Unknown History Inlyta 5 mg PO DAILY 05/15/21 09/27/21 05/15/21 21:00 History Trelegy Ellipta 200 mcg inhalation PRN PRN 05/15/21 09/27/21 Unknown History Shortness Of Breath acetaminophen 650 mg PO Q6-8H PRN Pain 05/15/21 09/27/21 Unknown History cholecalciferol (vitamin D3) 100 mcg PO DAILY 05/15/21 09/27/21 Unknown History levothyroxine 25 mcg tablet 25 mcg PO DAILY 05/15/21 09/27/21 Unknown History (Synthroid) magnesium 50 mg PO DAILY 05/15/21 09/27/21 Unknown History metoprolol succinate 50 mg 25 mg PO DAILY 05/15/21 09/27/21 Unknown History tablet,extended release 24 hr Allergies Allergy/AdvReac Type Severity Reaction Status Date / Time codeine Allergy Severe Hives Verified 07/12/24 02:58 Penicillins Allergy Severe Hives Verified 07/12/24 02:58 Sulfa (Sulfonamide Allergy Severe Hives Verified 07/12/24 02:58 Antibiotics) lactase (From Dairy Aid) Allergy Migraine Verified 07/12/24 02:58 [place] And Derivatives AdvReac Intermediate Migraine Verified 07/12/24 02:58 egg AdvReac Intermediate Migraine Verified 07/12/24 02:58 egg yolk AdvReac Intermediate Migraine Verified 07/12/24 02:58 fish derived AdvReac Intermediate Migraine Verified 07/12/24 02:58 milk AdvReac Intermediate Migraine Verified 07/12/24 02:58 nut - unspecified AdvReac Intermediate Migraine Verified 07/12/24 02:58 Review of Systems Review of Systems: A 10 system review of systems was completed on the patient and is negative except for what is stated in the HPI. Nursing and ancillary documentation was reviewed. PENDING SALE TO [facility] Past Medical History Medical History Metastatic renal cell carcinoma to lung Vitamin D deficiency Hypertension Allergic asthma Surgical History Surgical History History of arthroscopic knee surgery History of cholecystectomy History of left nephrectomy (01/2019) Family History Family History Father Family history of blood dyscrasia, Onset Age: 68 Family history of heart disease in male family member before age 55 Patient's father is Asthma Mother Family history of elevated blood lipids Family history of diabetes mellitus in first degree relative Hypertension Diabetes mellitus Sibling Asthma Diabetes mellitus Family history of sickle cell trait Multiple sclerosis Lupus Hypertension Grandparent Family history of malignant neoplasm of breast Family history of blood dyscrasia Social History Social History Social History: Surrogate decision maker: Sha Condon, son. Code status: Full code. Smoking status: Never smoker Second hand tobacco smoke exposure: No Alcohol intake: never Substance use: never Substance use type: does not use Living arrangements: with family Occupation/Education: unemployed Additional occupation/education comments: On disability. Gender identity (if verbalized by the patient): Female Sexual Orientation (if Verbalized by the Patient): Straight or Heterosexual Spiritual care concerns: No Course Course Emergency Course: GENERAL: Well-appearing, well-nourished, and in no acute distress. HEAD: Normocephalic, atraumatic. EYES: PERRLA and EOMI. ENT: Nares clear, no rhinorrhea or epistaxis. Mucous membranes dry. NECK: Supple. CHEST: Clear to auscultation. No respiratory distress. HEART: Regular rate and rhythm. No murmur heard. Normal peripheral pulses. ABDOMEN: Soft, diffuse mild tenderness, nondistended, normal active bowel sounds. EXTREMITIES: Normal range of motion. No edema. SKIN: Warm, dry, no rash. NEURO: No focal deficits. Alert and oriented x3. PSYCH: Normal mood and affect. Vital Signs Vital signs: Vital Signs Temperature 36.4 C 07/12/24 02:59 Pulse Rate 112 H 07/12/24 02:59 Respiratory Rate 16 07/12/24 02:59 Blood Pressure 100/68 07/12/24 02:59 Pulse Oximetry 97 07/12/24 02:59 Oxygen Delivery Room Air 07/12/24 02:59 Temperature 36.4 C 07/12/24 02:59 Pulse Rate 80 07/12/24 05:23 Respiratory Rate 18 07/12/24 05:23 Blood Pressure 137/84 07/12/24 05:23 Pulse Oximetry 100 07/12/24 05:23 Oxygen Delivery Room Air 07/12/24 02:59 Medical Decision Making Vital Signs Vital Signs: Vital Signs Temperature 36.4 C 07/12/24 02:59 Pulse Rate 112 H 07/12/24 02:59 Respiratory Rate 16 07/12/24 02:59 Blood Pressure 100/68 07/12/24 02:59 Pulse Oximetry 97 07/12/24 02:59 Oxygen Delivery Room Air 07/12/24 02:59 Temperature 36.4 C 07/12/24 02:59 Pulse Rate 80 07/12/24 05:23 Respiratory Rate 18 07/12/24 05:23 Blood Pressure 137/84 07/12/24 05:23 Pulse Oximetry 100 07/12/24 05:23 Oxygen Delivery Room Air 07/12/24 02:59 Lab Data 07/12/24 04:03 07/12/24 04:03 Labs: Lab Results 07/12/24 07/12/24 Range/Units 04:03 05:15 WBC 8.0 (4.5-10.0) K/mm3 RBC 6.22 H (4.2-5.4) M/mm3 Hgb 14.7 (12.0-15.0) g/dL Hct 47.5 H (37.0-47.0) % MCV 76.4 L (80-100) fl MCH 23.6 L (26-34) pg MCHC 30.9 L (32-36) g/dl RDW 20.0 H (11.5-14.5) % Plt Count 292 (150-375) k/mm3 MPV 10.9 H (7.4-10.4) fl Immature Gran % (Auto) 0.3 (0-0.5) % Neut % (Auto) 70.8 (45.5-73.1) % Lymph % (Auto) 24.5 (18.3-44.2) % [place] % (Auto) 3.8 (2.6-8.5) % Eos % (Auto) 0.5 (0-4.4) % Baso % (Auto) 0.1 L (0.2-1.2) % Lymph # (Auto) 1.95 (0.9-3.2) K/mm3 [place] # (Auto) 0.3 (0.1-0.6) K/mm3 Eos # (Auto) 0.0 (0-0.3) K/mm3 Baso # (Auto) 0.0 (0.0-0.1) K/mm3 Abs Immat Gran (auto) 0.02 (0.00-0.031) K/mm3 Absolute Neuts (auto) 5.6 (1.3-6.7) K/mm3 Absolute Nucleated RBC 0.000 (0.0-0.012) K/mm3 Nucleated RBC % 0.0 (0.0-0.2) % Sodium 144 (137-145) mmol/L Potassium 4.5 (3.4-5.0) mmol/L Chloride 105 (98-107) mmol/L Carbon Dioxide 17 L (22-30) mmol/L Anion Gap 22 H (4-12) mmol/L BUN 18 H (7-17) mg/dL Creatinine 1.75 H (0.7-1.0) mg/dL Estim Creat Clear Calc 28 ml/min Estimated GFR 29 L (59 - ) Glucose 172 H (65-110) mg/dL Lactic Acid 2.4 H (0.7-2.0) mmol/L Calcium 10.9 H (8.4-10.2) mg/dL Magnesium 2.2 (1.6-2.3) mg/dL Total Bilirubin 1.6 H (0.2-1.3) mg/dL AST 44 H (14-36) U/L ALT 34 (6-35) U/L Alkaline Phosphatase 106 (38-126) U/L Total Protein 9.0 H (6.3-8.2) g/dL Albumin 5.2 H (3.5-5.1) g/dL Lipase 56 (23-300) U/L Influenza A (RT-PCR) Pending Influenza B (RT-PCR) Pending RSV (RT-PCR) Pending SARS-CoV-2 RNA (RT-PCR) Pending Discharge Plan Discharge Clinical Impression: Gastroenteritis, Dehydration Patient Disposition: Still a Patient Condition: Stable Patient Language: Burkinan Prescriptions: No Action azelastine 137 mcg (0.1 %) aerosol,spray 1 spray NASAL Q12H Qty: 30 0RF Rx Instructions: administer into each nostril ergocalciferol (vitamin D2) [Vitamin D2] 1,250 mcg (50,000 unit) capsule 1,250 mcg PO WEEKLY Qty: 14 3RF fluticasone propionate 50 mcg/actuation spray,suspension 1 spray intranasal Q12H Qty: 18.2 3RF Rx Instructions: administer into each nostril sennosides-docusate sodium 8.6-50 mg tablet 1 tab-cap PO QHS sertraline 25 mg tablet 25 mg PO BID Qty: 180 1RF cyclobenzaprine 7.5 mg tablet 7.5 mg PO TID PRN (Reason: muscle spasm) Qty: 90 0RF Xarelto 20 mg tablet 20 mg PO DAILY Qty: 30 5RF Rx Instructions: must administer with evening meal alprazolam [Xanax] 0.5 mg tablet 0.5 mg PO QHS PRN (Reason: sleep) Qty: 30 0RF promethazine 25 mg tablet 25 mg PO TID PRN (Reason: nausea and vomiting) Qty: 90 0RF levothyroxine [Synthroid] 25 mcg tablet 25 mcg PO DAILY Calcium Complete 1 tablet PO DAILY Daily Multi-Vitamin 1 tablet PO DAILY Inlyta 5 mg PO DAILY Trelegy Ellipta 200 mcg inhalation PRN PRN (Reason: Shortness Of Breath) Rx Instructions: 200mcg/62.5mcg/25mcg acetaminophen 650 mg PO Q6-8H PRN (Reason: Pain) cholecalciferol (vitamin D3) 100 mcg PO DAILY magnesium 50 mg PO DAILY metoprolol succinate 50 mg tablet extended release 24 hr 25 mg PO DAILY cetirizine 10 mg Tablet 10 mg PO DAILY albuterol sulfate 90 mcg/actuation HFA aerosol inhaler 1 puff inhalation Q4H PRN (Reason: bronchospasm) Qty: 8.5 5RF ipratropium-albuterol 0.5 mg-3 mg(2.5 mg base)/3 mL solution for nebulization 3 ml inhalation Q4H PRN (Reason: shortness of breath or wheezing) Qty: 180 0RF tramadol 50 mg tablet 50 mg PO Q6H PRN (Reason: pain) Qty: 30 0RF Follow-up/Referrals: Ben,Fide Brice MD [Primary Care Provider] - Time of Disposition: 05:53
[2024-07-12] MEDS: SODIUM CHLORIDE 0.9% IV 1,000 ML 999 ML IV CONT ×2 (05:11→05:12)
[2024-07-12] MEDS: ONDANSETRON INJ 4 MG/2 ML VIAL IV PUSH (05:12)
[2024-07-12 05:30] LABS: Lactic Acid Reflex 2.4 mmol/L (0.7-2.0)
[2024-07-12] MEDS: PROCHLORPERAZINE EDISYLATE 10 MG/2 ML VIAL IV PUSH (05:52)
[2024-07-12 05:56] LABS: Influenza A QL RT-PCR Negative (Negative); Influenza B QL RT-PCR Negative (Negative); RSV RNA, RT-PCR Negative (Negative); SARS-CoV-2 RNA PCR Negative (Negative)
--- NOTE | 2024-07-12 06:26 | PC.NURSE ---
Pt tried to give a urine sample but was contaminated with poop.
[2024-07-12] MEDS: SODIUM CHLORIDE 0.9% IV 1,000 ML 125 ML IV CONT ×2 (06:40→15:27)
--- NOTE | 2024-07-12 06:40 | ADMGEN ---
Addendum entered by Elsy Joyner RN 07/12/24 06:59: Report received by SAMI Roman in ED. Original Note: This patient, Jailyn Condon, was admitted to 2 Medical Room 261-01. Patient/family oriented to hospital policies and general routines including ID bracelet, bed and alarms, visiting hours, pain management, procedures, bathroom and other care routines, personal items, smoking policy, room service/diet, and visiting hours. Information on how to activate the Rapid Response Team has been discussed. Patient/Family are encouraged to report perceived risks to care and to ask questions if they do not understand what they are told or what they should do.
[2024-07-12 08:19] LABS: Reflex Lactic Acid Yes or No Add Lactic
[2024-07-12 09:25] LABS: Lactic Acid 0.8 mmol/L (0.7-2.0)
--- NOTE | 2024-07-12 11:24 | P.HP_ITS ---
H&P: HPI History of Present Illness Date/Time: 07/12/24 11:24 Chief Complaint: Vomiting and diarrhea Narrative: 64-year-old female past medical history of hypertension, kidney and lung cancer status post nephrectomy in remission presented to the ER on account of vomiting and diarrhea of 4 days duration. Patient reported she has been having 4 times in a day episodes of diarrhea past 4 days associated with vomiting. Otherwise denies any abdominal pain, chest pain shortness of breath lightheadedness loss of consciousness dysuria focal weakness. ER evaluation notable for blood pressure is stable within normal limits. Lab WBCs 8.0, hemoglobin 14.7, creatinine 1.75 which is about her baseline of 1.6. Lactic acid 2.40 PT 0.8, calcium 10.9, flu RSV and COVID negative. CT abdomen no acute changes. Stool studies were sent and patient was admitted for further evaluation and care. Review of Systems Review of Systems: All other systems were reviewed and negative except as noted in the history above. [facility] Past Medical History Medical History Metastatic renal cell carcinoma to lung Vitamin D deficiency Hypertension Allergic asthma Surgical History Surgical History History of arthroscopic knee surgery History of cholecystectomy History of left nephrectomy (01/2019) Family History Family History Father Family history of blood dyscrasia, Onset Age: 68 Family history of heart disease in male family member before age 55 Patient's father is Asthma Mother Family history of elevated blood lipids Family history of diabetes mellitus in first degree relative Hypertension Diabetes mellitus Sibling Asthma Diabetes mellitus Family history of sickle cell trait Multiple sclerosis Lupus Hypertension Grandparent Family history of malignant neoplasm of breast Family history of blood dyscrasia Social History Social History Social History: Surrogate decision maker: Sha Condon, son. Code status: Full code. Smoking status: Never smoker Second hand tobacco smoke exposure: No Alcohol intake: never Substance use: never Substance use type: does not use Do You Feel Safe in your Home?: Yes Lack of Transportation: No Lack of Food: Never True Current Housing: I Have Housing Concerned About Future Housing: No Difficulty Paying Gas/Electric Bills: No Difficulty Paying for Meds: No Currently Unemployed: No Education: Bachelor's Degree Difficulty w/ Childcare or Family Care: No Living arrangements: with family Occupation/Education: unemployed Additional occupation/education comments: On disability. Gender identity (if verbalized by the patient): Female Sexual Orientation (if Verbalized by the Patient): Straight or Heterosexual Spiritual care concerns: No Meds Home Medications and Allergies Home Medications ?Medication ?Instructions ?Recorded ?Confirmed ?Type cetirizine 10 mg tablet 10 mg PO DAILY 02/23/20 07/12/24 History fluticasone propionate 50 1 spray intranasal Q12H #18.2 mL 08/11/20 07/12/24 Rx mcg/actuation nasal spray,suspension ipratropium 0.5 mg-albuterol 3 mg 3 ml inhalation Q4H PRN shortness 01/20/21 07/12/24 Rx (2.5 mg base)/3 mL nebulization of breath or wheezing #180 mL soln Daily Multi-Vitamin 1 tablet PO DAILY 05/15/21 07/12/24 History Inlyta 5 mg PO DAILY 05/15/21 07/12/24 History acetaminophen 650 mg PO Q6-8H PRN Pain 05/15/21 07/12/24 History levothyroxine 25 mcg tablet 25 mcg PO DAILY 05/15/21 07/12/24 History (Synthroid) promethazine 25 mg tablet 25 mg PO TID PRN nausea and 05/20/21 07/12/24 Rx vomiting #90 tabs tramadol 50 mg tablet 50 mg PO Q6H PRN pain #30 tabs 09/23/21 07/12/24 Rx cyclobenzaprine 7.5 mg tablet 7.5 mg PO TID PRN muscle spasm #90 09/27/21 07/12/24 Rx tabs sertraline 25 mg tablet 25 mg PO BID #180 tabs 09/27/21 07/12/24 Rx amlodipine 5 mg tablet (Norvasc) 5 mg PO DAILY 07/12/24 07/12/24 History fexofenadine 180 mg tablet 180 mg PO DAILY 07/12/24 07/12/24 History (Gifty Allergy) lenvatinib 8 mg/day (4 mg x 2) 8 mg PO DAILY 07/12/24 07/12/24 History capsule (Lenvima) pantoprazole 40 mg tablet,delayed 40 mg PO QAM 07/12/24 07/12/24 History release Allergies Allergy/AdvReac Type Severity Reaction Status Date / Time codeine Allergy Severe Hives Verified 07/12/24 02:58 Penicillins Allergy Severe Hives Verified 07/12/24 02:58 Sulfa (Sulfonamide Allergy Severe Hives Verified 07/12/24 02:58 Antibiotics) lactase (From Dairy Aid) Allergy Migraine Verified 07/12/24 02:58 [place] And Derivatives AdvReac Intermediate Migraine Verified 07/12/24 02:58 egg AdvReac Intermediate Migraine Verified 07/12/24 02:58 egg yolk AdvReac Intermediate Migraine Verified 07/12/24 02:58 fish derived AdvReac Intermediate Migraine Verified 07/12/24 02:58 milk AdvReac Intermediate Migraine Verified 07/12/24 02:58 nut - unspecified AdvReac Intermediate Migraine Verified 07/12/24 02:58 Vital Signs Vital Signs - 24 hr 07/12/24 02:59 07/12/24 05:23 07/12/24 06:29 Temperature 97.6 F Pulse Rate 112 H 80 80 Respiratory Rate 16 18 18 Blood Pressure 100/68 137/84 137/84 Pulse Oximetry 97 100 100 Oxygen Delivery Room Air 07/12/24 06:35 07/12/24 06:38 07/12/24 06:39 Temperature 98.1 F 98.1 F 98.1 F Pulse Rate 89 99 86 Respiratory Rate 18 18 18 Blood Pressure 120/71 119/72 118/66 Pulse Oximetry 100 100 99 Oxygen Delivery Exam Narrative: General: alert and comfortable Eyes: EOMI, PERRLA ENNT External ears normal, Neck is supple, no masses, Respiratory systems: Clear to auscultation Cardiovascular S1, S2, normal rhythm, no murmur, rub, or gallop; no thrill or palpable murmurs on palpation. Gastrointestinal: soft, non-tender, and non-distended abdomen with no masses; BS present Skin: no rash, lesions, ulcerations, subcutaneous nodules or induration Musculoskeletal: no abnormality and no tenderness, normal ROM Neurologic: Alert and oriented x3, non focal Mental Status Exam: normal affect H&P: Results Labs Labs: Short CBC 07/12/24 Range/Units 04:03 WBC 8.0 (4.5-10.0) K/mm3 Hgb 14.7 (12.0-15.0) g/dL Hct 47.5 H (37.0-47.0) % Plt Count 292 (150-375) k/mm3 BMP 07/12/24 04:03 Sodium 144 Potassium 4.5 Chloride 105 Carbon Dioxide 17 L BUN 18 H Creatinine 1.75 H Glucose 172 H Calcium 10.9 H Liver Function 07/12/24 Range/Units 04:03 Total Bilirubin 1.6 H (0.2-1.3) mg/dL AST 44 H (14-36) U/L ALT 34 (6-35) U/L Alkaline Phosphatase 106 (38-126) U/L Albumin 5.2 H (3.5-5.1) g/dL Assessment and Plan Assessment and plan (1) Nausea: Code(s): R11.0 - Nausea Status: Acute (2) Gastroenteritis: Code(s): K52.9 - Noninfective gastroenteritis and colitis, unspecified Status: Acute Plan Diarrhea and vomiting CT abdomen no acute changes. Stool studies pending Continue IV fluid Monitor. Hypertension Titrate her medications with clinical course. History of kidney cancer with metastasis to lungs Status post nephrectomy patient remission. DVT prophylaxis subQ Lovenox. Full code Surrogate decision maker is marti Carr.
--- NOTE | 2024-07-12 11:59 | PC.NURSE ---
pt taken down for xray
--- NOTE | 2024-07-12 12:04 | PC.NURSE ---
pt returned to room from xray
[2024-07-12 13:08] LABS: Add Urine Microscopic? YES; Appearance Urine Clear (Clear); Bacteria Urine 1+ /hpf; Bilirubin Urine Negative (Negative); Blood Urine Negative (Negative); Color Urine Yellow (Yellow); Glucose Urine UA Negative (Negative); Ketones Urine Trace mg/dL (Negative); Leukocyte Esterase Ur Negative LEU/UL (Negative); Nitrate Urine Negative (Negative); Non Pathogenic Casts 0-2; Protein Urine Trace mg/dL (Negative); RBC Urine 0-2 /hpf (0-2); Specific Grav Ur 1.016 (1.001-1.035); Squamous Epithelial Cell Urine None Seen /hpf (Few); Urobilinogen Urine 0.2 mg/dL (<2.0); WBC Urine 0-5 /hpf (0-3)
[2024-07-12 14:23] LABS: Toxigenic C. Diff NEGATIVE (NEGATIVE)
[2024-07-12] MEDS: SERTRALINE HCL 25 MG TABLET PO (18:31)
[2024-07-12] MEDS: ACETAMINOPHEN 325 MG TABLET 650 MG PO (21:33)
--- NOTE | 2024-07-13 01:52 | PC.NURSE ---
Daylight Savings Time For Daylight Savings Time Ending in the Fall - Clocks are moved back. For Daylight Savings Time Beginning in the Spring - Clocks are moved ahead. For [facility], the time of change occurs at 0200 hrs. Time is taken from the hotel server. This entry on the patient's chart recognizes the change in time reflected during documentation. Example: 2 entries for vital signs may be charted for 0200 hrs.
[2024-07-13 04:35] VITALS: BP 102/61; PULSE 58; RESP 17; TEMP 36.9; O2SAT 100
[2024-07-13] MEDS: SODIUM CHLORIDE 0.9% IV 1,000 ML 125 ML IV CONT ×2 (04:37→12:24)
[2024-07-13] MEDS: [UNRECOGNIZED DRUG - REMARK] 1 EACH XX (04:38)
[2024-07-13 05:25] LABS: Alanine Aminotransferase 23 U/L (6-35); Albumin Level 3.3 g/dL (3.5-5.1); Alkaline Phosphatase 64 U/L (38-126); Anion Gap 8 mmol/L (4-12); Aspartate Amino Transferase 34 U/L (14-36); Bilirubin,Total 1.1 mg/dL (0.2-1.3); Blood Urea Nitrogen 14 mg/dL (7-17); Calcium 8.5 mg/dL (8.4-10.2); Carbon Dioxide 19 mmol/L (22-30); Chloride 114 mmol/L (98-107); Estimated CRCL calculation 37 ml/min; Estimated Glomerular Filt Rate 50; Glucose 73 mg/dL (65-110); Magnesium 2.1 mg/dL (1.6-2.3); Potassium 4.1 mmol/L (3.4-5.0); Sodium 141 mmol/L (137-145)
[2024-07-13] MEDS: LEVOTHYROXINE SODIUM 88 MCG TABLET PO (05:40)
[2024-07-13 06:52] LABS: Basophils Percent Auto 0.4 % (0.2-1.2); Eosinophils Absolute Auto 0.1 K/mm3 (0-0.3); Eosinophils Percent Auto 2.5 % (0-4.4); Hematocrit 36.8 % (37.0-47.0); Hemoglobin 10.8 g/dL (12.0-15.0); Immature Granulocyte Absolute 0.01 K/mm3 (0.00-0.031); Immature Granulocyte Percent A 0.2 % (0-0.5); Lymphocytes Absolute Auto 3.15 K/mm3 (0.9-3.2); Lymphocytes Percent Auto 55.5 % (18.3-44.2); Mean Corpuscular HGB Conc 29.3 g/dl (32-36); Mean Corpuscular Hemoglobin 23.6 pg (26-34); Mean Corpuscular Volume 80.5 fl (80-100); Mean Platelet Volume 10.7 fl (7.4-10.4); Monocytes Absolute Auto 0.4 K/mm3 (0.1-0.6); Monocytes Percent Auto 7.7 % (2.6-8.5); Neutrophils Absolute Auto 1.9 K/mm3 (1.3-6.7); Neutrophils Percent Auto 33.7 % (45.5-73.1); Platelet Count Result 162 k/mm3 (150-375); Red Blood Count 4.57 M/mm3 (4.2-5.4); Red Cell Distribution Width 19.3 % (11.5-14.5); White Blood Count 5.7 K/mm3 (4.5-10.0)
[2024-07-13 07:23] LABS: Crenated RBC 1+; Hypochromasia 1+; Platelet Estimate Adequate (Adequate); Schistocytes None Seen
[2024-07-13] MEDS: SERTRALINE HCL 25 MG TABLET PO (08:12)
--- NOTE | 2024-07-13 14:57 | PM.DS ---
DS: Admitting Diagnosis Discharge Date 07/13/24 Admitting Diagnosis Vomiting and diarrhea DS: Discharge Diagnosis Discharge Diagnosis (1) Gastroenteritis: Code(s): K52.9 - Noninfective gastroenteritis and colitis, unspecified Status: Acute DS: Summary Hospital Course Hospital Course: 64-year-old female past medical history of hypertension, kidney and lung cancer status post nephrectomy in remission presented to the ER on account of vomiting and diarrhea of 4 days duration. Patient reported she has been having 4 times in a day episodes of diarrhea past 4 days associated with vomiting. Otherwise denies any abdominal pain, chest pain shortness of breath lightheadedness loss of consciousness dysuria focal weakness. ER evaluation notable for blood pressure is stable within normal limits. Lab WBCs 8.0, hemoglobin 14.7, creatinine 1.75 which is about her baseline of 1.6. Lactic acid 2.40 PT 0.8, calcium 10.9, flu RSV and COVID negative. CT abdomen no acute changes. Stool studies C. diff negative, stool culture still negative. No diarrhea today. tolerated diet. Vital signs stable and wnl. Patient discharged home. F/u with PCP in 3-5 days, continue other home meds. Time Spent with Patient Time attestation: Total time spent providing and/or coordinating discharge services: DS: Data Data Completed and Pending Labs on day of discharge: Labs from last 24 hours 07/13/24 07/13/24 07/12/24 06:28 04:23 12:52 WBC 5.7 RBC 4.57 Hgb 10.8 L D Hct 36.8 L MCV 80.5 D MCH 23.6 L MCHC 29.3 L RDW 19.3 H Plt Count 162 MPV 10.7 H Immature Gran % (Auto) 0.2 Neut % (Auto) 33.7 L Lymph % (Auto) 55.5 H [place] % (Auto) 7.7 Eos % (Auto) 2.5 Baso % (Auto) 0.4 Lymph # (Auto) 3.15 [place] # (Auto) 0.4 Eos # (Auto) 0.1 Baso # (Auto) 0.0 Abs Immat Gran (auto) 0.01 Absolute Neuts (auto) 1.9 Absolute Nucleated RBC 0.000 Band Neutrophils % Not Reportable Nucleated RBC % 0.0 Platelet Estimate Adequate Hypochromasia 1+ Crenated Cell 1+ Schistocytes None seen Sodium 141 Potassium 4.1 Chloride 114 H Carbon Dioxide 19 L Anion Gap 8 BUN 14 Creatinine 1.09 H Estim Creat Clear Calc 37 Estimated GFR 50 L Glucose 73 Calcium 8.5 Magnesium 2.1 Total Bilirubin 1.1 AST 34 ALT 23 Alkaline Phosphatase 64 Total Protein 6.0 L Albumin 3.3 L C. difficile (PCR) Negative Discharge Plan Discharge Attending physician on discharge: Aron Centeno Discharging Clinician: Aron Centeno Anticipated Discharge Date/Time: 07/13/24 14:56 Patient Disposition: Home, Self-Care Activity: as tolerated Diet: regular Patient Instructions: Antibiotic Form Patient Language: Luxembourgish Stand Alone Forms: General Discharge Information Follow-up/Referrals: Ben,Fide Brice MD [Primary Care Provider] - (F/u with PCP in 3-5 days ) Discharge Medications: Continued fluticasone propionate 50 mcg/actuation spray,suspension 1 spray intranasal Q12H Qty: 18.2 3RF Rx Instructions: administer into each nostril sertraline 25 mg tablet 25 mg PO BID Qty: 180 1RF cyclobenzaprine 7.5 mg tablet 7.5 mg PO TID PRN (Reason: muscle spasm) Qty: 90 0RF promethazine 25 mg tablet 25 mg PO TID PRN (Reason: nausea and vomiting) Qty: 90 0RF levothyroxine [Synthroid] 25 mcg tablet 25 mcg PO DAILY Patient Comments: 88MCG DAILY Daily Multi-Vitamin 1 tablet PO DAILY Inlyta 5 mg PO DAILY acetaminophen 650 mg PO Q6-8H PRN (Reason: Pain) Lenvima 8 mg/day (4 mg x 2) capsule 8 mg PO DAILY Rx Instructions: TAKES [id number] amlodipine [Norvasc] 5 mg tablet 5 mg PO DAILY fexofenadine [Gifty Allergy] 180 mg tablet 180 mg PO DAILY pantoprazole 40 mg tablet,delayed release (DR/EC) 40 mg PO QAM cetirizine 10 mg Tablet 10 mg PO DAILY ipratropium-albuterol 0.5 mg-3 mg(2.5 mg base)/3 mL solution for nebulization 3 ml inhalation Q4H PRN (Reason: shortness of breath or wheezing) Qty: 180 0RF tramadol 50 mg tablet 50 mg PO Q6H PRN (Reason: pain) Qty: 30 0RF Date of admission: 07/12/24 05:50 Primary Care Provider: Ben,Fide Brice Admitting Provider: Talat Kaplan Attending physician on admission: Talat Kaplan Condition: Stable
[2024-07-13 15:59] VITALS: BP 131/84; PULSE 81; RESP 18; TEMP 36.6; O2SAT 100
== END 2024-07-13 16:35 | disposition home or self-care (01) ==
LOC: ANHED 05:53 → ANH2MED 06:09
PROVIDERS: Internal Medicine; Admitting Provider Internal Medicine; Emergency Provider Emergency Medicine; PCP Family Medicine; Visit Provider Internal Medicine
DX: K52.9 Noninfective gastroenteritis and colitis, unspecified (principal); E55.9 Vitamin D deficiency, unspecified; I10 Essential (primary) hypertension; Z85.528 Personal history of other malignant neoplasm of kidney; Z85.118 Personal history of other malignant neoplasm of bronchus and lung; Z20.822 Contact with and (suspected) exposure to COVID-19
CPT/HCPCS: 36415; 71046; 74176; 80053; 81001; 83605; 83690; 83735; 85025; 87045; 87427; 87449; 87493; 87637; 96361; 96374; 96375; 99285; A9270; G0378; J0780; J2405; J7030

== ENCOUNTER 2024-12-18 09:39 | Emergency (ER) | payer MEDICARE, SELFPAY ==
[2024-12-18] VITALS (12 sets, daily range): BP systolic 128–164; BP diastolic 78–129; PULSE 65–104; RESP 14–20; TEMP 36.8–36.9; O2SAT 93–100
--- NOTE | ~2024-12-18 | XR_ITS ---
EXAMINATION: XR abdomen/kub 1V DATE: 12/18/2024 15:17 INDICATION: Left upper quadrant abdominal pain TECHNIQUE: A supine view of the abdomen on 2 radiographs was obtained. COMPARISON: CT dated 07/12/2024 FINDINGS: Paravertebral left paravertebral surgical clips consistent with prior left nephrectomy. Cholecystecto my clips in right upper quadrant. Moderate amount of gas scattered throughout the colon. No dilated l oops of gas-filled bowel to suggest obstruction. Several phleboliths in the pelvis along with large c alcification right hemipelvis corresponding to a degenerated uterine fibroid on prior CT. Multilevel severe lumbar facet osteoarthritis. IMPRESSION: 1. Nonobstructive bowel gas pattern. Reviewed, dictated and finalized at location A.
--- OUTSIDE RECORDS SUMMARY | 2024-12-18 09:50 | XMS_ITS | Encounter Summary ---
Author Organization [facility] Address [address] [place] [address] Phone Care Team Providers Care Career Technology Teacher Name Role Phone Lorene Prince MD Unavailable [phone] Akhil Russo MD Primary Care Provider [phone] Mili Mcleod NP Unavailable Guillermina Stokes MD Unavailable [phone] Encounter Details Date Type Department Care Team (Latest Contact Info) Description 07/12/2024 Orders Only [facility]Y Scanning, Provider Social History Tobacco Use Types Packs/Day Years Used Date Smoking Tobacco: Never Passive Smoke Exposure: Past Smokeless Tobacco: Never Alcohol Use Standard Drinks/Week Comments Never 0 (1 standard drink = 0.6 oz pur e alcohol) [facility] Utilities Answer Date Recorded In the past 12 months has [employer], gas, oil, or water [facility] threatened to shut off services in your home? Patient unable to answer 09/04/2023 Social Connection and Isolation Panel Answer Date Recorded In a typical week, how many times do you talk on the phone with family, friends, or neighbors? Patient unable to answer 09/04/2023 How often do you get togethe r with friends or relatives? Patient unable to answer 09/04/2023 How often do you attend [facility] or rastafari services? Patient unable to answer 09/04/2023 Do you belong to any clubs o r organizations such as yazidi groups, unions, fraternal or athletic groups, or [...] place to sleep or slept in a alf (including now)? 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 Gender Identity Female 12/08/2020 1:45 PM CDT Sexual Orientation Straight 01/22/2019 10 :49 AM CDT documented as of this encounter Plan of Treatment Not on file documented as of this encounter Procedures Procedure Name Priority Date/Time Associated Diagnosis Comments SCAN - RADIOLOGY/IMAGING 07/12/2024 SCAN - LABS 07/12/2024 documented in this encounter Results * SCAN - LABS (07/12/2024) us Provider Scanning Final Result * SCAN - RADIOLOGY/IMAGING (07/12/2024) Anatomical Region Laterality Modality Other us Provider Scanning Edited Result - Final documented in this encounter Visit Diagnoses Not on filedocumented in this encounter Care Teams Career Technology Teacher Relationship Specialty Start Date End Date Akhil Russo MD [address] [place] [address] PCP - General Family Medicine 11/29/21 Lorene Prince MD Medical Oncologist/Hematologis t Medical Oncology 01/31/21 Mili Mcleod NP [address] [place] [address] Nurse Practitioner Cardiovascular Disease 07/18/22 Guillermina Stokes MD [address] [facility] [address] [address] Referring Physician Endocrinology Diabetes & Metabolism 08/20/23 documented as of this encounter
--- OUTSIDE RECORDS SUMMARY | 2024-12-18 09:50 | XMS_ITS | Encounter Summary ---
Author Organization [facility] Healthcare Address [address] [place] [address] Care Team Providers Care Vp Product Management Name Role Phone Fide Contreras MD Primary Care Provider Lorene Prince MD Unavailable [phone] Vinod Bird MD Unavailable Sandra Prieto Primary Care Provider [phone] Akhil Russo MD Primary Care Provider [phone] Mili Mcleod NP Unavailable Guillermina Stokes MD Unavailable Encounter Details Date Type Department Care Team (Late st Contact Info) Description 01/04/2021 Telephone [facility] Radiology [address] [place], [place] [id number] Lorene Prince MD [address] [place] [address] Social History Tobacco Use Types Packs/Day Years [...] on file Legal Sex Female 8:31 AM PATIENT COMPANION Gender Identity Female 12/08/2020 1:45 PM CDT [...] C. difficile suspected 07/05/2023 07/05/2023 10:37 PM PATIENT COMPANION COVID: Suspected 08/22/2023 08/22/2023 08/22/2023 5:03 PM CDT C. difficile suspected 08/22/2023 08/22/202308/22 3:06 AM CDT C. difficile suspected 09/01/2023 09/02/202309/04 3:05 AM CDT Norovirus suspected 09/01/2023 09/02/2023 09/05/19 3:05 AM CDT documented as of this encounter Care Teams Vp Product Management Relationship Specialty Start Date End Date Fide Contreras MD [address] [place] [address] PCP - General Family Medicine 01/01/19 11/15/21 Sandra Prieto PA [address] [place] [address] PCP - General Internal Medicine 11/16/21 11/28/21 Akhil Russo MD [address] [place] [address] PCP - General Family Medicine 11/29/21 Lorene Prince MD [address] [place] [address] Medical Oncologist/Hematologis t Medical Oncology 01/31/21 Vinod Bird MD [address] [place] [address] Consulting Physician Cardiovascular Disease 03/23/21 Mili Mcleod NP [address] [place] [address] Nurse Practitioner Cardiovascular Disease 07/18/22 Guillermina Stokes MD [address] [facility] [address] [address] Referring Physician Endocrinology Diabetes & Metabolism 08/20/23 documented as of this encounter
--- OUTSIDE RECORDS SUMMARY | 2024-12-18 09:50 | XMS_ITS | Encounter Summary ---
Author Organization [facility] Healthcare Address [address] [place] [address] Care Team Providers Care Swage Tender Name Role Phone SureshLorene MD Unavailable [phone] Vinod Bird MD Unavailable Akhil Russo MD Primary Care Provider [phone] Mili Mcleod NP Unavailable Guillermina Stokes MD Unavailable [phone] Encounter Details Date Type Department Care Team (Late st Contact Info) Description 12/01/2021 Telephone [facility] Primary [facility] Medicine Clinic [address] [facility] [address] [place] [address] Akhil Russo MD [address] [facility] [address] [place] [address] Social History Tobacco Use Types [...] on file 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 difficile suspected 07/05/2023 07/05/2023 10:37 PM MANUFACTURING SYSTEMS ENGINEER COVID: Suspected 08/22/2023 08/22/2023 08/22/2023 5:03 PM CDT C. difficile suspected 08/22/2023 08/22/202308/22 3:06 AM CDT C. difficile suspected 09/01/2023 09/02/202309/04 3:05 AM CDT Norovirus suspected 09/01/2023 09/02/2023 09/05/19 3:05 AM CDT documented as of this encounter Care Teams Swage Tender Relationship Specialty Start Date End Date Akhil Russo MD [address] [place] [address] PCP - General Family Medicine 11/29/21 Lorene Prince MD Medical Oncologist/Hematologis t Medical Oncology 01/31/21 Vinod Bird MD Consulting Physician Cardiovascular Disease 03/23/21 Mili Mcleod NP [address] [place] [address] Nurse Practitioner Cardiovascular Disease 07/18/22 Guillermina Stokes MD [address] [address] Referring Physician Endocrinology Diabetes & Metabolism 08/20/23 documented as of this encounter
--- OUTSIDE RECORDS SUMMARY | 2024-12-18 09:51 | XMS_ITS | Encounter Summary ---
Author Organization [facility] Healthcare Address [address] [place] [address] Care Team Providers Care Employee Relation Manager Name Role Phone Unavailable Primary Care Provider Unavailabl e Reason for Visit * Diagnostic Imaging (Routine) - Closed Specialty Diagnoses / Procedures Referred By Contac t Referred To Contact Procedures Breast Imaging Screening Outside Reference Referral, Self Referral ID Status Reason Start Date Expiration Date Visits Re quested Visits Authorized [id number] Closed 10/05/2022 11/04/2023 1 1 Encounter Details Date Type Department Care Team (Late st Contact Info) Description 09/15/2011 Hospital Encounter [facility] [address] [place] [id number] Social History Tobacco Use Types Packs/Day Years Used Date Smoking Tobacco: Never Passive Smoke Exposure: Past Smokeless Tobacco: Never Alcohol Use Standard Drinks/Week Comments Never 0 (1 standard drink = 0.6 oz pur e alcohol) [facility] Utilities Answer Date Recorded In the past 12 months has [employer], gas, oil, or water [employer] threatened to shut off services in your [...] answer 09/04/2023 How often do you attend [facility] or restorationist services? 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 Never 01/21/2024 9:51 AM CHRISTIT Nikole Vgea RN documented as of this encounter Plan [...] only and have not been reviewed by [facility] Radiology. There will be no report generated by a [facility] Radiologist. Narrative RAD_MAMMO_[facility] - 10/05/2022 [...] C. difficile suspected 07/05/2023 07/05/2023 10:37 PM MEAT INSPECTOR COVID: Suspected 08/22/2023 08/22/2023 08/22/2023 5:03 PM CDT C. difficile suspected 08/22/2023 08/22/202308/22 3:06 AM CDT C. difficile suspected 09/01/2023 09/02/202309/04 3:05 AM CDT Norovirus suspected 09/01/2023 09/02/2023 09/05/19 3:05 AM CDT documented as of this encounter
--- OUTSIDE RECORDS SUMMARY | 2024-12-18 09:51 | XMS_ITS | Encounter Summary ---
Author Organization [facility] Address [address] [place] [address] Phone Care Team Providers Care Footwear Factory Worker Name Role Phone Lorene Prince MD Unavailable [phone] Akhil Russo MD Primary Care Provider [phone] RaterMili NP Unavailable Guillermina Stokes MD Unavailable [phone] Encounter Details Date Type Department Care Team (Late st Contact Info) Description 10/10/2022 Telephone [place] [facility] - [facility] ENT [address] [facility] 11th [place] [address] [place] [phone] Goyo Salinas MD [address] [place] [address] Social History Tobacco Use Types Packs/Day Years [...] on file Legal 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 difficile suspected 07/05/2023 07/05/2023 10:37 PM RELATIONSHIP ASSOCIATE COVID: Suspected 08/22/2023 08/22/2023 08/22/2023 5:03 PM CDT C. difficile suspected 08/22/2023 08/22/202308/22 3:06 AM CDT C. difficile suspected 09/01/2023 09/02/202309/04 3:05 AM CDT Norovirus suspected 09/01/2023 09/02/2023 09/05/19 3:05 AM CDT documented as of this encounter Care Teams Footwear Factory Worker Relationship Specialty Start Date End Date Akhil Russo MD [address] [place] [address] PCP - General Family Medicine 11/29/21 Lorene Prince MD Medical Oncologist/Hematologis t Medical Oncology 01/31/21 Mili Mcleod NP [address] [place] [address] Nurse Practitioner Cardiovascular Disease 07/18/22 Guillermina Stokes MD [facility] [address] [place] [address] Referring Physician Endocrinology Diabetes & Metabolism 08/20/23 documented as of this encounter
--- OUTSIDE RECORDS SUMMARY | 2024-12-18 09:51 | XMS_ITS | Encounter Summary ---
Author Organization [facility] Address [address] [place] [address] Phone Care Team Providers Care Apprentice Painter Hand Name Role Phone Lorene Prince MD Unavailable [phone] Akhil Russo MD Primary Care Provider [phone] Mili Mcleod NP Unavailable Guillermina Stokes MD Unavailable Encounter Details Date Type Department Care Team (Late st Contact Info) Description 12/18/2024 Orders Only [facility] Oncology [address] [facility] [address] [place] [address] Lorene Prince MD [address] [place] [address] Social History Tobacco Use Types Packs/Day Years Used Date Smoking Tobacco: Never Passive Smoke Exposure: Past Smokeless Tobacco: Never Alcohol Use Standard Drinks/Week Comments Never 0 (1 standard drink = 0.6 oz pur e alcohol) [facility] Utilities Answer Date Recorded In the past 12 months has e electric, gas, oil, or water company [...] How often do you attend chur or presybeterian services? 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 I have been taking the Loperamide. Every time I try to eat it starts the diarrhea again. I have been up all night. I???m not sure what to do. My stomach sounds like bagpipes. How do I get this under control? Called patient. She states since last night. She has now had a total of 10 diarrhea stools. The stools are now pure water looking coming out. Took a total of 4 Imodium so far. Has been nauseated the last 3-4 days. She did take Zofran 2 days ago and it caused her blood pressure to rise. Instructed to try Compazine. Took her Lenv/Margot last night. Instructed for her to HOLD the medication. Called [facility] they have a waitlist and will call the patient when they have an opening. Hopefully later this afternoon or evening. If patient can not wait will need to let them know. Will talk with team on possible plan documented in this encounter Plan of Treatment Not on file documented as of this encounter Visit Diagnoses Not on filedocumented in this encounter Care Teams Apprentice Painter Hand Relationship Specialty Start Date End Date Akhil Russo MD [address] [place] [address] PCP - General Family Medicine 11/29/21 Lorene Prince MD Medical Oncologist/Hematologis t Medical Oncology 01/31/21 Mili Mcleod NP [address] [place] [address] Nurse Practitioner Cardiovascular Disease 07/18/22 Guillermina Stokes MD [address] [address] Referring Physician Endocrinology Diabetes & Metabolism 08/20/23 documented as of this encounter
--- OUTSIDE RECORDS SUMMARY | 2024-12-18 09:51 | XMS_ITS | Encounter Summary ---
Author Organization [facility] Healthcare Address [address] [place] [address] Care Team Providers Care Wrapper Stemmer Operator Name Role Phone Unavailable Primary Care Provider Unavailabl e Reason for Visit * Diagnostic Imaging (Routine) - Closed Specialty Diagnoses / Procedures Referred By Contac t Referred To Contact Procedures Breast Imaging Screening Outside Reference Referral, Self Referral ID Status Reason Start Date Expiration Date Visits Re quested Visits Authorized [id number] Closed 10/05/2022 11/04/2023 1 1 Encounter Details Date Type Department Care Team (Late st Contact Info) Description 01/27/2014 Hospital Encounter [facility] Radiology [facility] [address] [place] [id number] Social History Tobacco Use Types Packs/Day Years Used Date Smoking Tobacco: Never Passive Smoke Exposure: Past Smokeless Tobacco: Never Alcohol Use Standard Drinks/Week Comments Never 0 (1 standard drink = 0.6 oz pur e alcohol) [facility] Utilities Answer Date Recorded In the past 12 months has [employer] [place], gas, oil, or water [employer] threatened to shut off services in your [...] answer 09/04/2023 How often do you attend [facility] or baptism services? Patient unable to answer 09/04/2023 Do you belong to any clubs o r organizations such as tenriism groups, unions, fraternal or athletic groups, or [...] place to sleep or slept in a [facility] (including now)? 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 There will be no report generated by a [facility] Radiologist. Narrative RAD_MAMMO_[facility] - 10/05/2022 [...] C. difficile suspected 07/05/2023 07/05/2023 10:37 PM ICT PROGRAMMER COVID: Suspected 08/22/2023 08/22/2023 08/22/2023 5:03 PM CDT C. difficile suspected 08/22/2023 08/22/202308/22 3:06 AM CDT C. difficile suspected 09/01/2023 09/02/202309/04 3:05 AM CDT Norovirus suspected 09/01/2023 09/02/2023 09/05/19 3:05 AM CDT documented as of this encounter
--- OUTSIDE RECORDS SUMMARY | 2024-12-18 09:51 | XMS_ITS | Clinical Summary ---
Author Organization [facility] Address [address] [place] [address] Care Team Providers Care Knot Saw Operator Name Role Phone Lorene Prince MD Unavailable [phone] Akhil Russo MD Primary Care Provider [phone] Mili Mcleod NP Unavailable Guillermina Stokes MD Unavailable [phone] Allergies Active Allergy Reactions Criticality Noted Date Comments [place] And Derivatives Diarrhea Low 01/09/2019 Codeine Hives [...] puffs every 4 (four) hours as needed 021 Active fexofenadine (CHELA) 180 mg tablet Take 1 tablet (180 mg total) by mouth every morning Using xzyal now Active calcium carbonate/vitamin D3 (CALCIUM 500 + D ORAL) Take 1 tablet by mouth daily with breakfast Active triamcinolone (KENALOG) 0.1 % cream Apply topically 2 (two) times a day To affected areas 45 g 1 022 Active loperamide (IMODIUM) 2 mg capsuleIndication s:Malignant neoplasm of left kidney (HCC),Diarrhea, unspecified type Take 4 (mg) (2 caps) by mouth after the first loose bowel movement, then 2 mg (1 cap) by mouth after each loose bowel movement after the first dose has been taken. DO NOT EXCEED 16 mg (8 capsules) a day 120 capsule 1 022 Active acetaminophen 500 mg capsule Take by mouth as needed for mild pain (pain scale 1-4) Active diphenoxylate-atr opine (LOMOTIL) 2.5-0.025 mg per tablet Take 1 tablet by mouth 4 (four) times a day as needed for diarrhea 30 tablet 023 Active peg 400-hypromellose- glycerin (ARTIFICAL TEARS) 1-0.2-0.2 % ophthalmic solution Administer into both eyes as needed for dry eyes Active mometasone (ELOCON) 0.1 % creamIndications: Chronic diffuse otitis externa of left ear Apply topically daily Use in both ears for itching 45 g 1 024 Active cyclobenzaprine (FLEXERIL) 7.5 mg tablet Take 1 tablet (7.5 mg total) by mouth 3 (three) times a day as needed for muscle spasms for muscle spasms 30 tablet 024 Active multivitamin tabletIndications :Vitamin Deficiency Prevention Take 1 tablet by mouth Active ondansetron ODT (ZOFRAN-ODT) 8 mg disintegrating tablet Take 1 tablet (8 mg total) by mouth every 8 (eight) hours as needed for nausea or vomiting 30 tablet 11 024 Active urea (CARMOL) 20 % cream Apply topically as needed for dry skin 85 g 2 025 Active sertraline (ZOLOFT) 25 mg tablet Take 1 tablet by mouth twice daily 60 tablet 11 025 Active furosemide (LASIX) 20 mg tablet Take 1 tablet (20 mg total) by mouth daily as needed (For swelling in legs) 15 tablet 025 Active ofloxacin (FLOXIN) 0.3 % otic solution Administer 5 drops into the left ear 2 (two) times a day 10 mL 3 025 Active atorvastatin (LIPITOR) 10 mg tablet Take 1 tablet by mouth once daily 90 tablet 025 Active SITagliptin phosphate (Januvia) 50 mg tabletIndications :type 2 diabetes mellitus Take 1 tablet (50 mg total) by mouth daily 30 tablet 3 025 Active lenvatinib (Lenvima) 8 mg/day (4 mg x 2) capsule TAKE 2 CAPSULES (8 MG) BY MOUTH DAILY INDICATIONS: RENAL CELL CARCINOMA. TAKE WITH OR WITHOUT FOODAT THE SAME TIME EACH DAY. 60 capsule 11 025 Active everolimus (AFINITOR) 5 mg tabletIndications :Malignant neoplasm of left kidney (HCC) TAKE 1 TABLET BY MOUTH DAILY SWALLOW WHOLE WITH A GLASS OF WATER. 28 tablet 11 025 Active telmisartan (MICARDIS) 20 mg tablet Take 1 tablet by mouth once daily 30 tablet 5 025 Active blood-glucose meter kit For home blood glucose monitoring, 1ce daily 1 kit 025 Active blood glucose diagnostic (glucose blood) strip For home blood glucose monitoring, 1ce daily 100 each 025 2025 Active lancets 33 gauge misc For home blood glucose monitoring, 1ce daily 100 each 025 Active meloxicam (MOBIC) 15 mg tablet Take 1 tablet (15 mg total) by mouth daily 30 tablet 025 Active amLODIPine (NORVASC) 5 mg tablet Take 1 tablet by mouth once daily 30 tablet [address] (PROTONIX) 40 mg EC tablet Take 1 tablet by mouth once daily 30 tablet 025 Active traMADoL (ULTRAM) 50 mg tablet Take 1 tablet (50 mg total) by mouth 2 (two) times a day as needed for pain 60 tablet 025 Active OLANZapine (ZyPREXA) 2.5 mg tablet Take 1 tablet (2.5 mg total) by mouth nightly 30 tablet 025 Active levothyroxine (SYNTHROID) 88 mcg tablet Take 1 tablet by mouth once daily 30 tablet 025 Active traMADoL (ULTRAM) 50 mg tablet Take 1 tablet (50 mg total) by mouth 2 (two) times a day as needed for pain 30 tablet 024 2024 Discontinued(R eorder) OLANZapine (ZyPREXA) 2.5 mg tablet Take 1 tablet (2.5 mg total) by mouth nightly 30 tablet 025 2024 Discontinued(R eorder) pantoprazole DR (PROTONIX) 40 mg EC tablet Take 1 tablet by mouth once daily 30 tablet 025 2024 Discontinued levothyroxine (SYNTHROID) 88 mcg tablet Take 1 tablet by mouth once daily 30 tablet 025 2024 Discontinued Hospital, Clinic, or Other Facility Administered Medication Ordered Dose Route Frequency Start Date End Date Status lidocaine (XYLOCAINE) 10 mg/mL (1 %) injection 1 mLIndications:Adminis tration of Local Anesthesia 1 mL One-Time Injection 11/26/2024 5 Ended lidocaine (XYLOCAINE) 10 mg/mL (1 %) injection 1 mLIndications:Adminis tration of Local Anesthesia 1 mL One-Time Injection 11/26/2024 5 Ended methylPREDNISolone acetate (DEPO-medrol) injection 40 mgIndications:Trigger finger of left thumb 40 mg intra-artic One-Time Injection 11/26/2024 5 Ended methylPREDNISolone acetate (DEPO-medrol) injection 40 mgIndications:Arthrit is of carpometacarpal (CMC) joint of right thumb 40 mg intra-artic One-Time Injection 11/26/2024 5 Ended Active Problems Problem Noted Date Diagnosed Date Hyperkalemia 11/15/2024 Secondary malignant neoplasm of left lung 2024 Pancolitis 09/16/2024 Pain and swelling of lower extremity, left [...] resolve. Assessment & Plan (04/05/2022 12:32 AM SOLUTIONS CONSULTANT): - Pt c/o dehydration and lightheadedness on exam - CTH was unremarkable for any acute intracranial abnormalities. No orthostatis noted on exam - c/w LR @ 75 ml/hr Bacteriuria 04/05/2022 Assessment & Plan (04/05/2022 12:39 AM SOLUTIONS CONSULTANT): - UA was + for LE and trace Bacteria, given immunocompromised status, will start on Cefepime IV 2g q12h pending cultures - Taper coverage based on c&s Headache 04/05/2022 Assessment & Plan (04/05/2022 12:40 AM SOLUTIONS CONSULTANT): - Pt c/o intermittent headaches and lightheadedness on exam. Given hx of mets CTH was obtained which was unremarkable for any acute intracranial abnormalities. Seasonal allergies 04/05/2022 Assessment & Plan (04/05/2022 12:40 AM SOLUTIONS CONSULTANT): - c/w Flonase nasal spray MARAVILLA (dyspnea on exertion) 04/05/2022 Assessment & Plan (04/05/2022 12:48 AM SOLUTIONS CONSULTANT): - Pt c/o dyspnea on exertion , can likely be related to metastatic disease progression - EKG was unremarkable on admission while Trop and BNP were also WNL - TTE donw previously in 12/2020 was remarkable for LVEf of 54% with limited study - Plan to repeat TTE Diarrhea in adult patient 04/04/2022 Assessment & Plan (04/05/2022 12:37 AM SOLUTIONS CONSULTANT): - Pt presented with worsening NB , [...] 11/30/2021 Assessment & Plan (03/19/2024 10:38 AM SOLUTIONS CONSULTANT): A(n) yearly Medicare Annual Wellness Visit has [...] OK Assessment & Plan (07/08/2022 12:17 PM SOLUTIONS CONSULTANT): TSH 0.17 uIU/ml, normal T4 Thyroid dosing has been adjusted, awaiting repeat Assessment & Plan (04/05/2022 12:34 AM SOLUTIONS CONSULTANT): - c/w Synthroid 100 mcg po qam [...] zoloft Assessment & Plan (04/05/2022 12:37 AM SOLUTIONS CONSULTANT): - c/w Sertraline 25 mg po every [...] meningitis -Total spine MRI was ordered in [facility] and completed --> Posterior T12 [...] meningitis -Total spine MRI was ordered in [facility] and completed, read pending -Will [...] 02/18/2021 Assessment & Plan (04/05/2022 12:34 AM SOLUTIONS CONSULTANT): - Pt c/o worsening SOB which can [...] dehydration Assessment & Plan (07/08/2022 12:18 PM SOLUTIONS CONSULTANT): Renal function decreased, GFR at 42 Creatinine 1.39 Advised on hydration Assessment & Plan (04/05/2022 12:34 AM SOLUTIONS CONSULTANT): - c/w Toprol XL 50 mg po [...] recurrence. Assessment & Plan (04/05/2022 12:31 AM SOLUTIONS CONSULTANT): - Pt was diagnosed with left renal [...] exacerbation, started C2D1 02/14/2021. Follows with Dr. Pricne. - Medical oncology consult Resolved Problems Problem Noted Date Diagnosed Date Resolved Date Hypovolemia 09/02/2023 09/03/2023 Assessment & Plan (09/02/2023 12:11 PM CDT): Orthostatic vitals + on arrival. Frequent diarrhea -strict I/O. mIVF. Keep even Pulmonary emboli 04/05/2022 07/18/2023 Assessment & Plan (04/05/2022 12:39 AM SOLUTIONS CONSULTANT): - Pt has documented hx of PE, has been off AC for over 3 months Total perforation of left tympanic membrane 09/12/2021 02/10/2022 Overview (09/12/2021): Added automatically from request for surgery [id number] Left renal mass 01/03/2019 01/24/2019 Overview (01/03/2019): Added automatically from request for surgery [id number] Encounters Date Type Department Care Team Description 12/18/2024 Orders Only [facility] [address] [place] [phone] Lorene Pirnce MD 12/18/2024 Telephone [facility] [address] [place] [phone] Lorene Prince MD 12/18/2024 Orders Only [facility] [address] [place] [phone] Lorene Prince MD 12/08/2024 11:15 AM CDT Office Visit [facility] [address] [place] [phone] Lorene Prince MD Malignant neoplasm of left kidney (CMS/HCC) (HCC) (Primary Dx); Secondary malignant neoplasm of left lung (HCC); Malignant neoplasm of left kidney (HCC) 12/08/2024 10:15 AM CDT Lab [facility] [address] [place] [phone] Malignant neoplasm of left kidney (CMS/HCC) (HCC) 12/08/2024 10:00 AM CDT Lab [facility] [place] - Lab Collection [facility] Floor 5 [place] [address] Malignant neoplasm of left kidney (CMS/HCC) (HCC) 11/26/2024 9:40 AM CDT Office Visit [facility] [address] [facility] 2nd Floor [address] [place] [address] Govind Yee MD Trigger finger of left thumb (Primary Dx); Arthritis of carpometacarpal (CMC) joint of right thumb 11/14/2024 1:15 PM CDT Office Visit [facility] [address] [facility] 5th [place] [address] [place] [address] Dagoberto Dietrich MD Stage 3a chronic kidney disease (HCC) (Primary Dx); Persistent proteinuria; Malignant neoplasm of left kidney (CMS/HCC) (HCC); Primary hypertension; Hyperkalemia 11/11/2024 9:30 AM CDT Office Visit [facility] [address] [facility] [address] [place] [phone] Monroe Pelletier MD Primary hypertension (Primary Dx); Mixed hyperlipidemia; 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; MARAVILLA (dyspnea on exertion); History of pulmonary embolism; Hypothyroidism due to medication; Malignant neoplasm of left kidney (CMS/HCC) (HCC); Diarrhea, unspecified type; Stage 3a chronic kidney disease (HCC); Secondary malignant neoplasm of left lung (HCC) 10/27/2024 1:45 PM CDT Lab [facility] - Lab Collection [facility] Floor 5 [place] [address] Malignant neoplasm of left kidney (HCC); Secondary malignant neoplasm of left lung (HCC) 10/27/2024 1:00 PM CDT Office Visit [facility] [address] [place] [address] Floor 5 [place] [address] Lupis Friend NP Malignant neoplasm of left kidney (CMS/HCC) (HCC) (Primary Dx); Secondary malignant neoplasm of left lung (HCC); Malignant neoplasm of left kidney (HCC) 10/27/2024 12:00 PM CDT Lab [facility] [address] [facility] Floor 5 [place] [address] Malignant neoplasm of left kidney (CMS/HCC) (HCC) 10/27/2024 11:45 AM CDT Clinical Support [facility] - Lab Collection [address] [facility] Floor [address] [place] [address] Malignant neoplasm of left kidney (CMS/HCC) (HCC) 10/27/2024 9:53 AM CDT - 10/27/2024 11:59 PM CDT Hospital Encounter [facility] ([facility]) [address] [place] [phone] Lorene Prince MD Malignant neoplasm of left kidney (CMS/HCC) (HCC) Discharge Disposition: Discharge to home or self care 10/27/2024 Orders Only [facility] [address] [facility] Floor 8 [place] [address] Lupis Friend NP Malignant neoplasm of left kidney (HCC) (Primary Dx); Secondary malignant neoplasm of left lung (HCC) 10/23/2024 7:40 AM CDT - 10/23/2024 11:59 PM CDT Hospital Encounter [facility] at [facility] [address] [place] [address] Right knee pain, unspecified chronicity Discharge Disposition: Discharge to home or self care 10/23/2024 7:40 AM CDT Office Visit [facility] [address] [facility] 1st Floor [address] [place] [address] Ezekiel Holbrook MD Right knee pain, unspecified chronicity; Primary osteoarthritis of right knee 10/22/2024 Telephone [facility] Accountable Care Organization [address] [place] [address] Jennifer Rodas MA Chart Review (Med adherence ) 10/06/2024 Orders Only [facility] Medical Group Primary Care at [address] [phone] Akhil Russo MD 10/03/2024 Telephone [facility] Medical [facility] Primary Care at [address] [phone] Akhil Russo MD Medical Question/Miscellaneous 09/25/2024 11:45 AM CDT Office Visit [facility] Primary Care at [address] [phone] Akhil Russo MD Diabetes mellitus due to underlying condition with stage 3a chronic kidney disease, with long-term current use of insulin (HCC) (Primary Dx) 09/24/2024 Results Follow-Up [facility] Primary Care at [address] [phone] Akhil Russo MD Screening Mammogram Bilateral W Juan 09/23/2024 12:51 PM CDT - 09/23/2024 11:59 PM CDT Hospital Encounter [facility] Breast [facility] ([facility]) [address] [place] [phone] Screening mammogram, encounter for Discharge Disposition: Discharge to home or self care 09/20/2024 Results Follow-Up [facility] Primary Care at [address] [phone] Akhil Russo MD Measles IgG antibody Blood, CBC with auto differential, Comprehensive metabolic panel, Additional followed-up results: 6 09/17/2024 Orders Only [facility] [address] [place] [address], [address] [place] [address] Maria L Cm CMA 09/17/2024 Telephone [facility] [address] [place] [phone] Addis Garcia MS from Last 3 Months Immunizations Immunization Administration [...] W/ TUBES 05/07/2017 - 05/06/2018 Left Removed 2018 NEPHRECTOMY RADICAL 05/07/2018 - 05/06/2019 Left PERCUTANEOUS NEEDLE BIOPSY L YOLIS LEFT 01/12/2021 Left COLONOSCOPY ABDOMINAL SURGERY 2019 TYMPANOPLASTY 11/04/2021 - 12/04/2021 Medical History Medical History Date Comments Hypertension 2000 Asthma Adulthood Pre-diabetes on metformin Kidney mass 2018 GERD (gastroesophageal reflux disease) Control b y medication Anemia 2020 Anxiety 1981 Primary malignant neoplasm o f left kidney with metastasis from kidney to other site (HCC) 2018 COPD (chronic obstructive pulmonary disease) Motion sickness Hypothyroidism, unspecified 07/18/2021 Allergies Depression 2003 History of kidney problems Sinusitis Arthritis 2020 Milk protein allergy 11/30/2021 Allergic rhinitis Lifetime HL (hearing loss) 2018 Dizziness Periodically Tinnitus Periodically Headache Lifetime TMJ dysfunction Lifetime Nausea vomiting and diarrhea 07/18/2021 Cancer of kidney (HCC) History of chemotherapy 2020 Migraine Lifetime Migraines Life long Family History Medical History Relation Name Comments Clotting disorder Father Pearlis Rheum arthritis Father Pearlis Snoring Father Pearlis Clotting disorder Father's Brother 1 Algene Kidney cancer Father's Brother 1 Algene Kidney disease Father's Brother 1 Algene Clotting disorder Father's Brother 2 Magoffin Hearing loss Maternal Grandmother Louise Agarwal Heart attack Maternal Grandmother Louise Agarwal Vision loss Maternal Grandmother Louise [place] Arthritis Mother Jasvir Diaz Diabetes Mother Jasvir Diaz Hearing loss Mother Jasvir Diaz Hypertension Mother Jasvir Diaz Miscarriages / Stillbirths Mother Jasvir Prieto son Vision loss Mother Jasvir Diaz Clotting disorder Paternal Grandmother Dominique Arthritis Sister 1 Cherelle Asthma Sister 1 Cherelle Autoimmune disease Sister 1 Cherelle Rashes / Skin problems Sister 1 Cherelle Asthma Sister 2 Radha Depression Sister 2 Radha Asthma Sister 3 Kemi Depression Sister 3 Kemi Diabetes Sister 3 Kemi Asthma Son Sha Condon Anesthesia problems Neg Hx Relation Name Status Comments Father Merlines Father's Brother 1 Algene Father's Brother 2 Kris Maternal Grandmother Louise Agarwal Mother Jasvir Diaz Paternal Grandmother Dominique Sister 1 Cherelle Sister 2 Radha Sister 3 Kemi Son Sha Condon Social History Tobacco Use Types Packs/Day Years Used Date Smoking Tobacco: Never Passive Smoke Exposure: Past Smokeless Tobacco: Never Tobacco Cessation:Counseling Given: Not Answered Alcohol Use Standard Drinks/Week Comments Never 0 (1 standard drink = 0.6 oz pur e alcohol) [facility] Utilities Answer Date Recorded In the past 12 months has [employer], gas, oil, or water [employer] threatened to shut off services in your [...] answer 09/04/2023 How often do you attend [facility] or roman catholic services? Patient unable to answer 09/04/2023 Do you belong to any clubs o r organizations such as anglican groups, unions, fraternal or athletic groups, or [...] place to sleep or slept in a prison (including now)? Patient unable to answer 09/04/2023 [...] on file Legal Sex Female 8:31 AM SOLUTIONS CONSULTANT Gender Identity Female 12/08/2020 1:45 PM CDT Sexual Orientation Straight 01/22/2019 10 :49 AM CDT Obstetrics History Last Filed Vital Signs Vital Sign Reading Time Taken Comments Blood Pressure 119/80 12/08/2024 10:14 AM CDT Pulse 91 12/08/2024 10:14 AM CDT Temperature 36.4 C (97.5 F) 12/08/2024 10:14 AM CDT Respiratory Rate 18 12/08/2024 10:1 4 AM CDT Oxygen Saturation 97% 12/08/2024 10: 14 AM CDT Inhaled Oxygen Concentration - - Weight 69.3 kg (152 lb 12.8 oz) 025 10:14 AM CDT Height 162.6 cm (5' 4) 11/14/2024 1:05 PM CDT Body Mass Index 26.23 11/14/2024 1:05 PM CDT Plan of Treatment Health Maintenance Due Date Last Done Comments Albumin Creatinine Ratio, Urine 1958 Dilated Eye Exam 1958 Foot Exam 1958 Hepatitis B Screening 1976 Covid-19 Vaccine (6 - Pfizer risk season) 2024 01/14/2024, 09/27/2021, 09/27/2021, Additional history exists Influenza Vaccine (#1) 2025 , 01/17/2023, 02/07/2021 Fall Risk Assessment 03/19/2025 03/19/2024, 01/21/2024, 09/11/2023, Additional history exists Hemoglobin A1C 03/19/2025 09/16/2024, 1108/2023, 08/20/2023, Additional history exists Well Visit 65+ 03/19/2025 03/19/2024, 11/30/2021 Osteoporosis Screening-Bone Density Scan 07/25/2025 07/26/2023 Depression Screening 09/16/2025 09/16/2024, 03/19/2024, 09/11/2023, Additional history exists Breast Cancer Screening-Mammogram 09/23/2025 09/23/2024, 10/04/2023, 09/19/2022 Lipid Panel 12/08/2025 12/08/2024, 06/07/2024, 09/16/2024, Additional history exists eGFR 12/08/2025 12/08/2024, 06/07/2024, 09/16/2024, Additional history exists Colon Cancer Screening-Colonoscopy 07/23/2031 07/22/2021, 07/20/2021 DTaP/Tdap/Td Vaccine (3 - Td or Tdap) 08/23/2032 08/23/2022, 11/30/2021 Hepatitis C Screening Completed 01/03/2021 Colon Cancer Screening-CT Colonography Discontinued 07/22/2021, 07/20/2021 Colon Cancer Screening-DNA Stool Discontinued 07/23/19, 07/20/2021 Colon Cancer Screening-FIT Discontinued 07/22/2021, Colon Cancer Screening-Sigmoidoscopy Discontinued 07/22/2021, 07/20/2021 Pneumococcal vaccine 65+ Completed 01/17/2023 Zoster Vaccine Completed 01/29/2023, 07/05/2022 Cervical Cancer Screening Discontinued 04/11/2023, 10/2022 Procedures Procedure Name Priority Date/Time Associated Diagnosis Comments PROTEIN / CREATININE RATIO, URINE, RANDOM Routine 12/08/2024 10:10 AM CDT Malignant neoplasm of left kidney (CMS/HCC) (HCC) EGFR Routine 12/08/2024 10:00 AM CDT Malignant neoplasm of left kidney (CMS/HCC) (HCC) T4, FREE Routine 12/08/2024 10:00 AM CDT Malignant neoplasm of left kidney (CMS/HCC) (HCC) DIFFERENTIAL AUTO Routine 12/08/2024 10:00 AM CDT Malignant neoplasm of left kidney (CMS/HCC) (HCC) VITAMIN D 25 HYDROXY Routine 12/08/2024 10:00 AM CDT Malignant neoplasm of left kidney (CMS/HCC) (HCC) THYROID FUNCTION CASCADE Routine 12/08/2024 10:00 AM CDT Malignant neoplasm of left kidney (CMS/HCC) (HCC) CBC WITH AUTO DIFFERENTIAL Routine 12/08/2024 10:00 AM CDT Malignant neoplasm of left kidney (CMS/HCC) (HCC) COMPREHENSIVE METABOLIC PANEL Routine 12/08/2024 10:00 AM CDT Malignant neoplasm of left kidney (CMS/HCC) (HCC) LIPID PANEL Routine 12/08/2024 10:00 AM CDT Malignant neoplasm of left kidney (CMS/HCC) (HCC) TN ARTHROCENTESIS ASPIR&/INJ SMALL JT/BURSA W/O US Routine 11/26/2024 9:40 AM CDT Arthritis of carpometacarpal (CMC) joint of right thumb TN INJECTION 1 TENDON SHEATH/LIGAMENT APONEUROSIS Routine 11/26/2024 9:40 AM CDT Trigger finger of left thumb AST Routine 10/27/2024 1:23 PM CDT Malignant neoplasm of left kidney (HCC) Secondary malignant neoplasm of left lung (HCC) POTASSIUM, WHOLE BLOOD Routine 10/27/2024 1:23 PM CDT Malignant neoplasm of left kidney (HCC) Secondary malignant neoplasm of left lung (HCC) PROTEIN / CREATININE RATIO, URINE, RANDOM Routine 10/27/2024 11:57 AM CDT Malignant neoplasm of left kidney (CMS/HCC) (HCC) EGFR Routine 10/27/2024 11:42 AM CDT Malignant neoplasm of left kidney (CMS/HCC) (HCC) DIFFERENTIAL AUTO Routine 10/27/2024 11:42 AM CDT Malignant neoplasm of left kidney (CMS/HCC) (HCC) VITAMIN D 25 HYDROXY Routine 10/27/2024 11:42 AM CDT Malignant neoplasm of left kidney (CMS/HCC) (HCC) THYROID FUNCTION CASCADE Routine 10/27/2024 11:42 AM CDT Malignant neoplasm of left kidney (CMS/HCC) (HCC) CBC WITH AUTO DIFFERENTIAL Routine 10/27/2024 11:42 AM CDT Malignant neoplasm of left kidney (CMS/HCC) (HCC) COMPREHENSIVE METABOLIC PANEL Routine 10/27/2024 11:42 AM CDT Malignant neoplasm of left kidney (CMS/HCC) (HCC) LIPID PANEL Routine 10/27/2024 11:42 AM CDT Malignant neoplasm of left kidney (CMS/HCC) (HCC) CT CHEST ABDOMEN PELVIS W CONTRAST Schedule SUMAYA, Read SUMAYA (Appt Today, Awaiting Results) 10/27/2024 11:04 AM CDT Malignant neoplasm of left kidney (CMS/HCC) (HCC) POCT CREATININE - DEVICE Routine 10/27/2024 10:30 AM CDT XR KNEE RIGHT 3 VIEWS Schedule Routine, Read Routine (OP Routine) 10/23/2024 7:46 AM CDT Right knee pain, unspecified chronicity SCREENING MAMMOGRAM BILATERAL W JUAN Schedule Routine, Read Routine (OP Routine) 09/23/2024 1:19 PM CDT Screening mammogram, encounter for HEMOGLOBIN A1C Routine 09/16/2024 11:20 AM CDT Pre-diabetes DEXA AXIAL SKELETON BONE DENSITY 1 OR MORE SITES Schedule Routine, Read Routine (OP Routine) 07/26/2023 8:08 AM CDT 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 Current interpretive data was last revised 2018. Creatinine Ur 145.7 mg/dL [facility] Comment: Interpretive Data No reference range established. Current interpretive data was last revised 2018. Protein/creatinin e ratio 111.2 0.0 - 180.0 mg/g CR [facility] Urine 12/08/2024 10:1 0 AM CDT 12/08/2024 10:23 AM CDT Lupis Friend NP LAB URINE ORDERABLES Final Result [facility] [place] [address] * (ABNORMAL) eGFR (12/08/2024 10:00 AM CDT) eGFR 52(L) >=60 mL/min/1. 73 m2 Comment: [...] interpretive data was last reviewed 2021. Blood 12/08/2024 10:0 0 AM CDT 12/08/2024 10:10 AM CDT us Lupisunique Burnette Phuc [employer] LAB BLOOD ORDERABLES Final Result MOIRA PIPER [facility] [place] [address] * Differential, auto (12/08/2024 10:00 AM CDT) Neutrophil abs 3.73 1.50 - 6.50 K/cumm Comment:Testing performed by : [facility], [address] [place] [address] Lymphocyte abs 2.00 0.80 - 3.30 K/cumm CERNER VERONIQUE Comment:Testing performed by : [facility], [address] [place], [place] [phone] Monocyte abs 0.55 0.20 - 0.80 K/cumm CERNER VERONIQUE Comment:Testing performed by : [facility], [address] [place] [address] Eosinophil abs 0.08 0.00 - 0.50 K/cumm CERKOSTA PIPER Comment:Testing performed by : [facility], [address] [place] [phone] Basophil abs 0.06 0.00 - 0.10 K/cumm CERNER BJ Comment:Testing performed by : [facility], [address] [place] [address] Neutrophil pct 58.1 % CERNER BJ Comment: Interpretive Data Percent cell count reference ranges are not reported, since discordance with absolute values may lead to misinterpretation of CBC data. Current Interpretive Data was last revised on 2017. Testing performed by: [facility], [address] [place] [phone] Lymphocyte pct 31.2 % CERNER BJ Comment: Interpretive Data Percent cell count reference ranges are not reported, since discordance with absolute values may lead to misinterpretation of CBC data. Current Interpretive Data was last revised on 2017. Testing performed by: [facility], [address] [place] [phone] Monocyte pct 8.5 % [facility] Comment: Interpretive Data Percent cell count reference ranges are not reported, since discordance with absolute values may lead to misinterpretation of CBC data. Current Interpretive Data was last revised on 2017. Testing performed by: [facility], [address] [place], [place] [phone] Eosinophil pct 1.2 % [facility] Comment: Interpretive Data Percent cell count reference ranges are not reported, since discordance with absolute values may lead to misinterpretation of CBC data. Current Interpretive Data was last revised on 2017. Testing performed by: [facility], [address] [place], [place] [phone] Basophil pct 1.0 % [facility] Comment: Interpretive Data Percent cell count reference ranges are not reported, since discordance with absolute values may lead to misinterpretation of CBC data. Current Interpretive Data was last revised on 2017. Testing performed by: [facility], [address] [place] [phone] Blood 12/08/2024 10:0 0 AM CDT 12/08/2024 10:08 AM CDT [facility] [employer] LAB BLOOD ORDERABLES Final Result Performing Organization Address City/[facility]/ZIP Co de Phone Number [facility] [place] [address] * (ABNORMAL) Thyroid Function [place] (12/08/2024 10:00 AM CDT) TSH 0.27(L) 0.30 - 4.20 mcIUnit/mL Blood 12/08/2024 10:0 0 AM CDT 12/08/2024 10:10 AM CDT [facility] Vasile [place] [employer] LAB BLOOD ORDERABLES Final Result Performing Organization Address City/[facility]/ZIP Co de Phone Number [facility] [place] [address] * (ABNORMAL) CBC with auto differential (12/08/2024 10:00 AM CDT) WBC 6.43 3.80 - 9.90 K/cumm Comment:Testing performed by : [facility], [address] [place] [address] Hgb 12.7 11.9 - 15.5 g/dL CERNER BJ Comment:Testing performed by : [facility], [address] [place] [address] Hct 39.4 35.6 - 45.5 % CERNER BJ Comment:Testing performed by : [facility], [address] [place] [address] Plt 204 150 - 400 K/cumm CERNER BJ Comment:Testing performed by : [facility], [address] [place] [address] MPV 8.9 6.8 - 10.4 fL CERNER BJ Comment:Testing performed by : [facility], [address] [place] [address] RBC 5.41(H) 3.90 - 5.20 M/cumm CERNER BJ Comment:Testing performed by : [facility], [address] [place] [address] MCV 72.8(L) 81.3 - 96.4 fL CERNER BJ Comment:Testing performed by : [facility], [address] [place] [address] MCH 23.5(L) 27.1 - 33.3 pg CERNER BJ Comment:Testing performed by : [facility], [address] [place] [address] MCHC 32.4 32.3 - 35.7 g/dL CERNER BJ Comment:Testing performed by : [facility], [address] [place] [address] RDW CV 20.2(H) 11.1 - 14.9 % CERNER BJ Comment:Testing performed by : [facility], [address] [place] [phone] NRBC abs 0.00 0.00 - 0.01 K/cumm [facility] Comment:Testing performed by : [facility], [address] [place] [phone] Blood 12/08/2024 10:0 0 AM CDT 12/08/2024 10:08 AM CDT [facility] [employer] LAB BLOOD ORDERABLES Final Result Performing Organization Address City/[facility]/[place] [address] * Vitamin D 25 hydroxy (12/08/2024 10:00 AM CDT) Vitamin D 25-OH 44 30 - 80 ng/mL Blood 12/08/2024 10:0 0 AM CDT 12/08/2024 10:10 AM CDT [facility] [employer] LAB BLOOD ORDERABLES Final Result Performing Organization Address [facility] de Phone Number [facility] [place] [address] * (ABNORMAL) T4, free (12/08/2024 10:00 AM CDT) Free T4 1.79(H) 0.90 - 1.70 ng/dL Blood 12/08/2024 10:0 0 AM CDT 12/08/2024 10:10 AM CDT Narrative MOIRA PIPER - 12/08/2024 11:11 AM CDT This test was reflexed from a TSH result. [facility] [employer] LAB BLOOD ORDERABLES Final Result Performing Organization Address City/[facility] Co de Phone Number [facility] [place] [address] * Lipid panel (12/08/2024 10:00 AM CDT) Cholesterol 154 30 - 199 mg/dL Comment: Interpretive Data [...] Data was last revised on 2017. Triglycerides 104 <=149 mg/dL [facility] Comment: Interpretive Data Ages < or [...] Data was last revised on 2017. HDL 65 >=40 mg/dL [facility] Comment: Interpretive Data Ages < or [...] was last revised on 2017. LDL, calculated 70 <=129 mg/dL [facility] Comment: Interpretive Data Ages < or [...] was last revised on 2023. Non-HDL Cholesterol 89 mg/dL MOIRA PIPER Comment: Interpretive Data Ages < or = [...] was last revised on 2017. Chol/HDL ratio 2 MOIRA PIPER Blood 12/08/2024 10:0 0 AM CDT 12/08/2024 10:10 AM CDT us Lupis Friend NP LAB BLOOD ORDERABLES Final Result MOIRA PIPER [facility] [place] [address] * (ABNORMAL) Comprehensive metabolic panel (12/08/2024 10:00 AM CDT) Sodium 142 135 - 145 mmol/L Potassium, pl 4.1 3.3 - 4.9 mmol/L [facility] Chloride 105 97 - 110 mmol/L [facility] CO2 27 22 - 32 mmol/L [facility] Anion gap 10 2 - 15 mmol/L [facility] BUN 18 6 - 25 mg/dL [facility] Creatinine 1.16(H) 0.60 - 1.10 mg/dL [facility] Glucose 100 70 - 199 mg/dL [facility] Comment: Interpretive Data Fasting glucose >/= 126 [...] interpretive data was last revised 2022. Calcium 9.6 8.5 - 10.3 mg/dL [facility] Bilirubin, total 0.6 0.1 - 1.2 mg/dL [facility] Protein, pl 7.3 6.5 - 8.5 g/dL [facility] Albumin 4.0 3.5 - 5.0 g/dL [facility] Alk phos 72 40 - 130 Units/L [facility] ALT 15 7 - 45 Units/L [facility] AST 28 10 - 45 Units/L [facility] Blood 12/08/2024 10:0 0 AM CDT 12/08/2024 10:10 AM CDT Lupis Friend NP LAB BLOOD ORDERABLES Final Result [facility] [place] [address] * [place] INJECTION 1 TENDON SHEATH/LIGAMENT APONEUROSIS (11/26/2024 9:40 AM CDT) Narrative Govind Yee MD - 11/26/2024 9:40 AM CDT Govind Yee MD 11/26/2024 10:19 AM Hand / Upper Extremity Injection: L thumb A1 Performed by: Govind Yee MD Authorized by: Govind Yee MD Condition: trigger finger Location: Thumb Site: L thumb A1 Medications Left Thumb Injection: 1 mL lidocaine 10 mg/mL (1 %); 40 mg methylPREDNISolone acetate 80 mg/mL Procedure: Trigger Finger/A1 val Corticosteroid Injection The nature of and the [...] site was confirmed with the patient. The left thumb flexor tendon sheath was injected at the level of the A1 val with 1.5 cc of a 1:1 solution of Depomedrol and 1% Xylocaine without epinepherine. A sterile band-aide was applied. The patient tolerated the injection well and was discharged without complication. Post-injection protocol for activity modification, anti-inflammatory measures, and follow-up was reviewed with the patient. us Govind Yee MD IN CLINIC/BEDSIDE ORDERABL ES Final Result * TN ARTHROCENTESIS ASPIR&/INJ SMALL JT/BURSA W/O US (11/26/2024 9:40 AM CDT) Narrative Govind Yee MD - 11/26/2024 9:40 AM CDT Govind Yee MD 11/26/2024 10:19 AM Small Joint Injection: R thumb CMC Performed by: Govind Yee MD Authorized by: Govind Yee MD Procedure Details: Location: Thumb Site: R thumb CMC Medications: 1 mL lidocaine 10 mg/mL (1 %); 40 mg methylPREDNISolone acetate 80 mg/mL Procedure: Thumb CMC Corticosteroid Injection The [...] and follow-up was reviewed with the patient. Govind Yee MD IN CLINIC/BEDSIDE ORDERABL ES Final Result * Potassium, whole blood (10/27/2024 1:23 PM CDT) [facility] Potassium, bld 4.3 3.3 - 4.9 mmol/L Blood 10/27/2024 1:23 PM CDT 10/27/2024 1:41 PM CDT [facility] LAB BLOOD ORDERABLES Final Result Performing Organization Address [facility] Co de Phone Number [facility] [place] [address] * AST (10/27/2024 1:23 PM CDT) [facility] AST 30 10 - 45 Units/L Blood 10/27/2024 1:23 PM CDT 10/27/2024 1:32 PM CDT [facility] LAB BLOOD ORDERABLES Final Result Performing Organization Address [facility] Co de Phone Number [facility] [place] [address] * Protein / creatinine ratio, urine, random (10/27/2024 11:57 AM CDT) [facility] Protein, ur, quant 16.0 mg/dL Comment: Interpretive Data No reference range established. Current interpretive data was last revised 2018. Creatinine Ur 157.0 mg/dL [facility] Comment: Interpretive Data No reference range established. Current interpretive data was last revised 2018. Protein/creatinin e ratio 101.9 0.0 - 180.0 mg/g CR [facility] Urine 10/27/2024 11:5 7 AM CDT 10/27/2024 12:20 PM CDT us Lorene Prince MD LAB URINE ORDERABLES F inal Result Performing Organization Address [facility] Co de Phone Number [facility] [place] [address] * (ABNORMAL) eGFR (10/27/2024 11:42 AM CDT) eGFR 55(L) >=60 mL/min/1. 73 m2 Comment: Interpretive Data [...] interpretive data was last reviewed 2021. Blood 10/27/2024 11:4 2 AM CDT 10/27/2024 11:46 AM CDT us Lorene Prince MD LAB BLOOD ORDERABLES F inal Result Performing Organization Address City/[facility]/ZIP Co de Phone Number [facility] [place] [address] * Differential, auto (10/27/2024 11:42 AM CDT) Neutrophil abs 2.18 1.50 - 6.50 K/cumm Comment:Testing performed by : [facility], [address] [place] [address] Lymphocyte abs 1.42 0.80 - 3.30 K/cumm CERNER BJH Comment:Testing performed by : [facility], [address] [place] [address] Monocyte abs 0.30 0.20 - 0.80 K/cumm CERNER [facility]JH Comment:Testing performed by : [facility], [address] [place], [place] [id number] Eosinophil abs 0.07 0.00 - 0.50 K/cumm CERNER [facility]H Comment:Testing performed by : [facility], [address] [place] [address] Basophil abs 0.03 0.00 - 0.10 K/cumm CERNER [facility]JH Comment:Testing performed by : [facility], [address] [place] [phone] Neutrophil pct 54.5 % C[facility] Comment: Interpretive Data Percent cell count reference ranges are not reported, since discordance with absolute values may lead to misinterpretation of CBC data. Current Interpretive Data was last revised on 2017. Testing performed by: [facility], [address] [place] [phone] Lymphocyte pct 35.5 % [facility] Comment: Interpretive Data Percent cell count reference ranges are not reported, since discordance with absolute values may lead to misinterpretation of CBC data. Current Interpretive Data was last revised on 2017. Testing performed by: [facility], [address] [place] [address] Monocyte pct 7.6 % CERNER [facility] Comment: Interpretive Data Percent cell count reference ranges are not reported, since discordance with absolute values may lead to misinterpretation of CBC data. Current Interpretive Data was last revised on 2017. Testing performed by: [facility], [address] [place] [phone] Eosinophil pct 1.8 % [facility] Comment: Interpretive Data Percent cell count reference ranges are not reported, since discordance with absolute values may lead to misinterpretation of CBC data. Current Interpretive Data was last revised on 2017. Testing performed by: [facility], [address] [place] [phone] Basophil pct 0.8 % [facility] Comment: Interpretive Data Percent cell count reference ranges are not reported, since discordance with absolute values may lead to misinterpretation of CBC data. Current Interpretive Data was last revised on 2017. Testing performed by: [facility], [address] [place] [phone] Blood 10/27/2024 11:4 2 AM CDT 10/27/2024 11:44 AM CDT us Lorene Prince MD LAB BLOOD ORDERABLES F inal Result Performing Organization Address City/[facility]/ZIP Co de Phone Number [facility] [place] [address] * Thyroid Function [place] (10/27/2024 11:42 AM CDT) TSH 0.33 0.30 - 4.20 mcIUnit/mL Blood 10/27/2024 11:4 2 AM CDT 10/27/2024 11:46 AM CDT us Lorene Prince MD LAB BLOOD ORDERABLES F inal Result [facility] [place] [address] * (ABNORMAL) CBC with auto differential (10/27/2024 11:42 AM CDT) WBC 4.00 3.80 - 9.90 K/cumm Comment:Testing performed by : [facility], [address] [place] [address] Hgb 11.9 11.9 - 15.5 g/dL CERNER BJ Comment:Testing performed by : [facility], [address] [place] [address] Hct 36.7 35.6 - 45.5 % CERNER BJ Comment:Testing performed by : [facility], [address] [place], [place] [phone] Plt 170 150 - 400 K/cumm CERNER BJ Comment:Testing performed by : [facility], [address] [place] [address] MPV 8.6 6.8 - 10.4 fL CERNER BJ Comment:Testing performed by : [facility], [address] [place], [place] [phone] RBC 5.08 3.90 - 5.20 M/cumm CERNER BJ Comment:Testing performed by : [facility], [address] [place] [address] MCV 72.3(L) 81.3 - 96.4 fL CERNER BJ Comment:Testing performed by : [facility], [address] [place] [address] MCH 23.4(L) 27.1 - 33.3 pg CERNER BJ Comment:Testing performed by : [facility], [address] [place] [address] MCHC 32.3 32.3 - 35.7 g/dL CERNER BJ Comment:Testing performed by : [facility], [address] [place] [address] RDW CV 19.3(H) 11.1 - 14.9 % CERNER BJ Comment:Testing performed by : [facility], [address] [place] [address] NRBC abs 0.00 0.00 - 0.01 K/cumm CERNER BJ Comment:Testing performed by : [facility], [address] [place] [phone] Blood 10/27/2024 11:4 2 AM CDT 10/27/2024 11:44 AM CDT Lorene Prince MD LAB BLOOD ORDERABLES F inal Result Performing Organization Address City/[facility] Co de Phone Number [facility] [place] [address] * Vitamin D 25 hydroxy (10/27/2024 11:42 AM CDT) Vitamin D 25-OH 40 30 - 80 ng/mL Blood 10/27/2024 11:4 2 AM CDT 10/27/2024 11:46 AM CDT Lorene Prince MD LAB BLOOD ORDERABLES F inal Result Performing Organization Address [facility] de Phone Number [facility] [place] [address] * Lipid panel (10/27/2024 11:42 AM CDT) Cholesterol 140 30 - 199 mg/dL Comment: Interpretive Data [...] Data was last revised on 2017. Triglycerides 117 <=149 mg/dL [facility] Comment: Interpretive Data Ages < or [...] Data was last revised on 2017. HDL 56 >=40 mg/dL [facility] Comment: Interpretive Data Ages < or [...] was last revised on 2017. LDL, calculated 63 <=129 mg/dL [facility] Comment: Interpretive Data Ages < or [...] NCEP Expert Panel. Circulation 2004;110:227 3. Momo Gonzalez al. NAOMY Cardiol. 2020 September 04;5(5):540-548. doi: 10.1001/jamacardio.2020.0013 Current Interpretive Data was last revised on 2023. Non-HDL Cholesterol 84 mg/dL [facility] Comment: Interpretive Data Ages < or [...] revised on 2017. Chol/HDL ratio 3 [facility] Blood 10/27/2024 11:4 2 AM CDT 10/27/2024 11:46 AM CDT us Lorene Prince MD LAB BLOOD ORDERABLES F inal Result [facility] [place] [address] * (ABNORMAL) Comprehensive metabolic panel (10/27/2024 11:42 AM CDT) Sodium 138 135 - 145 mmol/L Potassium, pl 5.9(H) 3.3 - 4.9 mmol/L [facility] Comment:Hemolyzed; Potassium value may be falsely elevated by as much as 0.6-1.0 mmol/L. Suggest redraw and reanalysis. Chloride 106 97 - 110 mmol/L [facility] CO2 25 22 - 32 mmol/L [facility] Anion gap 7 2 - 15 mmol/L [facility] BUN 15 6 - 25 mg/dL [facility] Creatinine 1.11(H) 0.60 - 1.10 mg/dL [facility] Glucose 88 70 - 199 mg/dL [facility] Comment: Interpretive Data Fasting glucose >/= 126 [...] interpretive data was last revised 2022. Calcium 9.3 8.5 - 10.3 mg/dL [facility] Bilirubin, total 0.6 0.1 - 1.2 mg/dL [facility] Protein, pl 7.0 6.5 - 8.5 g/dL [facility] Albumin 3.8 3.5 - 5.0 g/dL [facility] Alk phos 66 40 - 130 Units/L [facility] ALT 18 7 - 45 Units/L [facility] AST See Comment 10 - 45 Units/L [facility] Comment:Credited; Hemolyzed Specimen Blood 10/27/2024 11:4 2 AM CDT 10/27/2024 11:46 AM CDT us Lorene Prince MD LAB BLOOD ORDERABLES F inal Result [facility] [place] [address] * CT Chest Abdomen Pelvis W Contrast (10/27/2024 11:04 AM CDT) Anatomical Region Laterality Modality Body N/A Computed Tomogra phy 10/27/2024 11:2 5 AM CDT Impressions 10/27/2024 1:00 PM CDT 1. Stable pulmonary nodules and left hilar lymphadenopathy. No evidence of new or progressive disease in the chest. 2. No evidence of recurrent or metastatic disease in the abdomen or pelvis. Dictated by: Solitario Malhotra MD The radiology attending physician has personally reviewed this study, and had reviewed and/or edited this written report and agrees with it. Electronically signed by: Zackary Green MD, PHD Narrative 10/27/2024 1:00 PM CDT EXAMINATION: Computed tomography of the chest, abdomen and pelvis with intravenous contrast HISTORY: Metastatic clear cell carcinoma status post nephrectomy. Assess treatment response. TECHNIQUE: Transaxial computed tomographic images of the chest, abdomen and pelvis were obtained with intravenous contrast according to the standard protocol after the uneventful administration of 70 mL Opti-Ray 350 intravenous contrast. COMPARISON: Multiple prior CTs, most recently 07/28/2024. FINDINGS: Chest: Stable pulmonary nodules throughout both lungs. For reference, the largest is a 2.2 cm a left lower lobe pulmonary nodule (image 49 of series 2). A right upper lobe pulmonary nodule measures 1.1 cm (image 37 of series 2), unchanged. No new or enlarging suspicious pulmonary nodule. No pneumothorax or pleural effusion. Small hiatal hernia. Stable 1.2 cm left hilar lymph node (image 76 of series 3). No new or enlarging suspicious lymphadenopathy within the chest. Heart size is normal without pericardial effusion. Thoracic aorta is normal in caliber. Abdomen/Pelvis: Redemonstrated ill-defined enhancement within hepatic segment 8 (image 118 of series 3), favored to represent vascular shunting. Portal and hepatic veins are patent. Mild intrahepatic and extra hepatic biliary ductal dilation with smooth tapering to the level of ampulla compatible with reservoir effect. The gallbladder surgically absent. The spleen, pancreas, and right adrenal gland are normal. The left kidney and adrenal glands are surgically absent. No nodular enhancement within the surgical bed to suggest recurrent disease. The right kidney enhances normally without hydronephrosis or nephrolithiasis. The urinary bladder is normal. Enlarged fibroid uterus is present. No suspicious adnexal mass. No bowel wall thickening or obstruction. No free fluid or intraperitoneal free air. No abdominal or pelvic lymphadenopathy. The abdominal aorta is normal in caliber. Partial left 10th rib resection. No suspicious lytic or blastic lesion. Procedure Note Zackary Green MD PhD - 10/27/2024 EXAMINATION: Computed tomography of the chest, abdomen and pelvis with intravenous contrast HISTORY: Metastatic clear cell carcinoma status post nephrectomy. Assess treatment response. TECHNIQUE: Transaxial computed tomographic images of the chest, abdomen and pelvis were obtained with intravenous contrast according to the standard protocol after the uneventful administration of 70 mL Opti-Ray 350 intravenous contrast. COMPARISON: Multiple prior CTs, most recently 07/28/2024. FINDINGS: Chest: Stable pulmonary nodules throughout both lungs. For reference, the largest is a 2.2 cm a left lower lobe pulmonary nodule (image 49 of series 2). A right upper lobe pulmonary nodule measures 1.1 cm (image 37 of series 2), unchanged. No new or enlarging suspicious pulmonary nodule. No pneumothorax or pleural effusion. Small hiatal hernia. Stable 1.2 cm left hilar lymph node (image 76 of series 3). No new or enlarging suspicious lymphadenopathy within the chest. Heart size is normal without pericardial effusion. Thoracic aorta is normal in caliber. Abdomen/Pelvis: Redemonstrated ill-defined enhancement within hepatic segment 8 (image 118 of series 3), favored to represent vascular shunting. Portal and hepatic veins are patent. Mild intrahepatic and extra hepatic biliary ductal dilation with smooth tapering to the level of ampulla compatible with reservoir effect. The gallbladder surgically absent. The spleen, pancreas, and right adrenal gland are normal. The left kidney and adrenal glands are surgically absent. No nodular enhancement within the surgical bed to suggest recurrent disease. The right kidney enhances normally without hydronephrosis or nephrolithiasis. The urinary bladder is normal. Enlarged fibroid uterus is present. No suspicious adnexal mass. No bowel wall thickening or obstruction. No free fluid or intraperitoneal free air. No abdominal or pelvic lymphadenopathy. The abdominal aorta is normal in caliber. Partial left 10th rib resection. No suspicious lytic or blastic lesion. IMPRESSION: 1. Stable pulmonary nodules and left hilar lymphadenopathy. No evidence of new or progressive disease in the chest. 2. No evidence of recurrent or metastatic disease in the abdomen or pelvis. Dictated by: Solitario Malhotra MD The radiology attending physician has personally reviewed this study, and had reviewed and/or edited this written report and agrees with it. Electronically signed by: Zackary Green MD, PHD us Lorene Prince MD IMG CT PROCEDURES Autumn l Result * POCT creatinine (10/27/2024 10:30 AM CDT) Creatinine POC 1.1 0.6 - 1.1 mg/dL Blood 10/27/2024 10:3 0 AM CDT 10/27/2024 10:30 AM CDT us Lorene Prince MD LAB POCT ORDERABLES - DEVICE Final Result [facility] [place] [address] * XR Knee Right 3 View (10/23/2024 7:46 AM CDT) Anatomical Region Laterality Modality Lower Extremities, Knee Right Computed Radiography 10/23/2024 7:47 AM CDT Impressions 10/23/2024 7:47 AM CDT 1. Unchanged mild tricompartmental right knee osteoarthritis. Electronically signed by: Nazario Chen M.D. Narrative 10/23/2024 7:47 AM CDT EXAMINATION: XR KNEE RIGHT 3 VIEWS HISTORY: Right knee pain FINDINGS: 3 view examination of the right knee is read with comparison to 01/31/2023. There is unchanged mild tricompartmental right knee osteoarthritis. No fracture or dislocation. Small joint effusion. Procedure Note Nazario Walsh MD - 10/23/2024 EXAMINATION: XR KNEE RIGHT 3 VIEWS HISTORY: Right knee pain FINDINGS: 3 view examination of the right knee is read with comparison to 01/31/2023. There is unchanged mild tricompartmental right knee osteoarthritis. No fracture or dislocation. Small joint effusion. IMPRESSION: 1. Unchanged mild tricompartmental right knee osteoarthritis. Electronically signed by: Nazario Chen M.D. Ezekiel Holbrook MD IMG XR PROCEDURES Autumn l Result * Screening Mammogram Bilateral W Juan (09/23/2024 1:19 PM CDT) Anatomical Region Laterality Modality Breast Bilateral Mammography Narrative 09/24/2024 8:54 AM CDT Mammogram Technique: Bilateral Digital Breast Tomosynthesis, Bilateral C-view 2D Screening mammogram. Views obtained: bilateral craniocaudal and bilateral mediolateral oblique. Computer Aided Detection was performed. Mammogram Findings: The present examination has been compared to prior imaging studies performed at [facility] on 10/31/2019, and at [facility] on 09/19/2022 and 10/04/2023. There are scattered areas of fibroglandular density. There is no suspicious abnormality in either breast. Impression: There is no mammographic evidence of malignancy. Annual screening mammography is recommended. OVERALL FINAL ASSESSMENT: BI-RADS CATEGORY 1: Negative. Procedure Note Enriqueta Davis MD - 09/24/2024 Mammogram Technique: Bilateral Digital Breast Tomosynthesis, Bilateral C-view 2D Screening mammogram. Views obtained: bilateral craniocaudal and bilateral mediolateral oblique. Computer Aided Detection was performed. Mammogram Findings: The present examination has been compared to prior imaging studies performed at [facility]. [facility] on 10/31/2019, [facility] on 09/19/2022 and 10/04/2023. There are scattered areas of fibroglandular density. There is no suspicious abnormality in either breast. Impression: There is no mammographic evidence of malignancy. Annual screening mammography is recommended. OVERALL FINAL ASSESSMENT: BI-RADS CATEGORY 1: Negative. us Self Screening Mammogram IMG MAMMO PROCEDURES Fi nal Result * (ABNORMAL) Hemoglobin A1c (09/16/2024 11:20 AM CDT) Hgb A1C 6.5(H) 4.0 - 5.6 % Estimated Average Glucose 140 mg/dL [facility] Comment: The ADA recommends reporting an estimated Average Glucose (eAG) with all Hemoglobin A1c results using the equation derived from a study of 507 normal and diabetic adults. Minority populations were underrepresented and children were not included. (Diabetes Care 31:5687-1238, 2008). The eAG is not equivalent to a fasting glucose. 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 MF: JOVAN Report ID: [id number] Reading Location: [place] [address] Akhil Russo MD IM DXA PROCEDURES Final Re sult * High Risk HPV DNA Detection with Genotyping (Molecular component) (04/11/2023 1:41 PM SOLUTIONS CONSULTANT) HPV HR 16 Not Detected Not Detected [facility] Comment:Testing performed by : [facility], [address] [place]., [address] HPV HR 18 Not Detected Not Detected [facility] Comment:Testing performed by : [facility], [address] [place]., [address] HPV HR Non 16/18 Not Detected Not Detected [facility] Comment: Interpretive Data Nucleic acid amplification for [...] test have been verified by the [facility] Molecular Infectious Disease laboratory. Correlate with separately reported cytology results, as applicable. Interpretive data last revised 22 Testing performed by: [facility], [address] [facility], [place]., [address] Endocervical 04/11/2023 1:41 PM SOLUTIONS CONSULTANT 04/12/2023 3:01 PM SOLUTIONS CONSULTANT us Akhil Russo MD LAB BODY FLUIDS AND STOOLS ORDERABLES Final Result Performing Organization Address City/State/[facility] [place] Phone Number [facility] [address] [address] [place] [address] * CT Colonography Diagnostic W Contrast (07/22/2021 2:35 PM CDT) Anatomical Region Laterality Modality Body N/A Computed Tomogra phy 07/22/2021 3:02 PM CDT Impressions 07/22/2021 3:43 PM CDT C1: Normal colon, continue routine screening. E2: Changes of left nephrectomy, adrenalectomy. Dictated by: Mornoe Hawk M.D. The radiology attending physician has [...] by: Stephanie Barajas M.D. Lorene Prince MD IM CT PROCEDURES Autumn l Result * Hepatitis C antibody (01/03/2021 12:02 PM CDT) Hep C Ab Nonreactive Nonreactive [facility] Comment:Antibodies to HCV no t detected. Does NOT exclude the possibility of recent exposure to HCV. Blood 01/03/2021 12:0 2 PM CDT 01/03/2021 12:16 PM CDT us Carmen Fish FLATWORK WASHER LAB MICROBIOLOGY - GENER AL ORDERABLES Edited Result - Final [facility] [place] [address] from Last 3 Months or Most Recently Relevant to Health Maintenance Insurance MEDICARE RESEARCH [facility] MEDICARE ADVANTAGE [facility] MEDICARE ADVANTAGE [address] MEDICARE ADVANTAGE Advance Directives For more information, please contact: [phone] * Full Code (Latest Code Status on [...] 5:18 PM 02/21/2021 4:10 PM Care Teams Knot Saw Operator Relationship Specialty Start Date End Date Akhil Russo MD [address] [place] [address] PCP - General Family Medicine 11/29/21 Lorene Prince MD Medical Oncologist/Hematologis t Medical Oncology 01/31/21 Mili Mcleod NP [address] [place] [address] Nurse Practitioner Cardiovascular Disease 07/18/22 Guillermina Stokes MD [address] [place] [address] Referring Physician Endocrinology Diabetes & Metabolism 08/20/23
--- OUTSIDE RECORDS SUMMARY | 2024-12-18 09:51 | XMS_ITS | Encounter Summary ---
Author Organization [facility] Healthcare Address [address] [place] [address] Care Team Providers Care Relay Telegrapher Name Role Phone Fide Contreras MD Primary Care Provider Reason for Visit * Diagnostic Imaging (Routine) - Closed Specialty Diagnoses / Procedures Referred By Yrn mei Referred To Contact Diagnoses Malignant neoplasm of left kidney (HCC) Malignant neoplasm of left kidney (HCC) Procedures Breast Imaging Screening Outside Reference Referral, Self Referral ID Status Reason Start Date Expiration Date Visits Re quested Visits Authorized [id number] Closed 10/05/2022 11/04/2023 1 1 Encounter Details Date Type Department Care Team (Late st Contact Info) Description 10/31/2019 Hospital Encounter [facility] [address] [place] [address] Social History Tobacco Use Types Packs/Day Years Used Date Smoking Tobacco: Never Passive Smoke Exposure: Past Smokeless Tobacco: Never Alcohol Use Standard Drinks/Week Comments Never 0 (1 standard drink = 0.6 oz pur e alcohol) [facility] Utilities Answer Date Recorded In the past 12 months has [employer] electric, gas, oil, or water company threatened [...] any clubs o r organizations such as orthodoxy groups, unions, fraternal or athletic groups, or [...] place to sleep or slept in a skilled nursing (including now)? Patient unable to answer 09/04/2023 [...] on file Legal Sex Female 8:31 AM CHIEF SUPPLY CHAIN OFFICER Gender Identity Female 12/08/2020 1:45 PM [...] only and have not been reviewed by [facility] Radiology. There will be no report generated by a [facility] Radiologist. Narrative [facility]_MAMMO_[facility] - 10/05/2022 10:41 AM CDT EXAMINATION: Images For Reference Purposes Only us Self Referral IMG MAMMO PROCEDURES Final Resul t [facility] documented in this encounter Visit Diagnoses Not on filedocumented in this encounter Additional Health Concerns Infection Onset Date Last Indicated Resolved Time COVID: Suspected 02/18/2021 02/18/2021 02/18/2021 9:54 PM CDT COVID: Suspected 02/19/2021 02/19/2021 02/19/2021 10:06 AM CDT COVID: Suspected 10/09/2022 10/09/2022 10/09/2022 2:21 PM CDT Diarrhea 07/01/2023 07/01/2023 07/15/2023 3:05 AM CDT C. difficile suspected 07/05/2023 07/05/2023 10:37 PM CHIEF SUPPLY CHAIN OFFICER COVID: Suspected 08/22/2023 08/22/2023 08/22/2023 5:03 PM CDT C. difficile suspected 08/22/2023 08/22/202308/22 3:06 AM CDT C. difficile suspected 09/01/2023 09/02/202309/04 3:05 AM CDT Norovirus suspected 09/01/2023 09/02/2023 09/05/19 3:05 AM CDT documented as of this encounter Care Teams Relay Telegrapher Relationship Specialty Start Date End Date Fide Contreras MD [address] [facility] [address] [place] [address] PCP - General Family Medicine 01/01/19 11/15/21 documented as of this encounter
--- OUTSIDE RECORDS SUMMARY | 2024-12-18 09:51 | XMS_ITS | Encounter Summary ---
Author Organization [facility] Address [address] [place] [address] Phone Care Team Providers Care Store Sales Manager Name Role Phone Lorene Prince MD Unavailable [phone] Akhil Russo MD Primary Care Provider [phone] Mili Mcleod NP Unavailable Guillermina Stokes MD Unavailable Encounter Details Date Type Department Care Team (Late st Contact Info) Description 12/18/2024 Orders Only [facility] Oncology [address] [facility] [address] [place] [address] Lorene Prince MD [address] [place] [address] Social History Tobacco Use Types Packs/Day Years Used Date Smoking Tobacco: Never Passive Smoke Exposure: Past Smokeless Tobacco: Never Alcohol Use Standard Drinks/Week Comments Never 0 (1 standard drink = 0.6 oz pur e alcohol) [facility] Utilities Answer Date Recorded In the past [...] How often do you attend chur or jewish services? Patient unable to answer 09/04/2023 Do [...] place to sleep or slept in a senior living (including now)? Patient unable to answer 09/04/2023 [...] on file Legal Sex Female 8:31 AM CORROSION TECHNICIAN Gender Identity Female 12/08/2020 1:45 PM CDT Sexual Orientation Straight 01/22/2019 10 :49 AM CDT documented as of this encounter Progress Notes * Nallely Montes RN - 12/18/2024 9:07 AM CDT Patient sent message that her sister is taking her to [place], [place] documented in this encounter Plan of Treatment Not on file documented as of this encounter Visit Diagnoses Not on filedocumented in this encounter Care Teams Store Sales Manager Relationship Specialty Start Date End Date Akhil Russo MD [address] [place] [address] PCP - General Family Medicine 11/29/21 Lorene Prince MD Medical Oncologist/Hematologis t Medical Oncology 01/31/21 Mili Mcleod NP [address] [place] [address] Nurse Practitioner Cardiovascular Disease 07/18/22 Guillermina Stokes MD [address] [facility] [address] [place] [address] Referring Physician Endocrinology Diabetes & Metabolism 08/20/23 documented as of this encounter
--- OUTSIDE RECORDS SUMMARY | 2024-12-18 09:51 | XMS_ITS | Encounter Summary ---
Author Organization [facility] Address [address] [place] [address] Phone Care Team Providers Care Watch Repair Technician Name Role Phone Lorene Prince MD Unavailable [phone] Akhil Russo MD Primary Care Provider [phone] Mili Mcleod NP Unavailable Guillermina Stokes MD Unavailable Encounter Details Date Type Department Care Team (Late st Contact Info) Description 12/18/2024 Telephone [facility] Oncology [address] [facility] [address] [place] [address] Lorene Prince MD [address] [place] [address] Social History Tobacco Use Types Packs/Day Years Used Date Smoking Tobacco: Never Passive Smoke Exposure: Past Smokeless Tobacco: Never Alcohol Use Standard Drinks/Week Comments Never 0 (1 standard drink = 0.6 oz pur e alcohol) [facility] Utilities Answer Date Recorded In the past 12 months has [employer] electric, gas, oil, or water company threatened [...] How often do you attend chur or adventist services? Patient unable to answer 09/04/2023 Do you belong to any clubs o r organizations such as moravian groups, unions, fraternal or athletic groups, or [...] on file Legal Sex Female 8:31 AM TREE CARE FOREMAN Gender Identity Female 12/08/2020 1:45 PM CDT Sexual Orientation Straight 01/22/2019 10 :49 AM CDT documented as of this encounter Miscellaneous Notes * Telephone Encounter - Nallely Montes RN - 12/18/2024 8:37 AM CDT After speaking with Team, called [facility] and let her know that the [facility] has a waitlist and it could be later this evening or even tomorrow before they could see her. She is trying to find a ride to go to her local ED. She will notify us when she is heading to her local ED. documented in this encounter Plan of Treatment Not on file documented as of this encounter Visit Diagnoses Not on filedocumented in this encounter Care Teams Watch Repair Technician Relationship Specialty Start Date End Date Akhil Russo MD [address] [place] [address] PCP - General Family Medicine 11/29/21 Lorene Prince MD Medical Oncologist/Hematologis t Medical Oncology 01/31/21 Mili Mcleod NP [address] [place] [address] Nurse Practitioner Cardiovascular Disease 07/18/22 Guillermina Stokes MD [address] [facility] [address], [place] [address] Referring Physician Endocrinology Diabetes & Metabolism 08/20/23 documented as of this encounter
--- OUTSIDE RECORDS SUMMARY | 2024-12-18 09:51 | XMS_ITS ---
Author Organization [facility] Address [address] [place] [address] Care Team Providers Care Berry Picker Name Role Phone Lorene Prince MD Unavailable [phone] Akhil Russo MD Primary Care Provider Mili Mcleod NP Unavailable Guillermina Stokes MD Unavailable [phone] Active Problems Problem Noted Date Diagnosed Date [...] resolve. Assessment & Plan (04/05/2022 12:32 AM WALKING DRAGLINE OILER): - Pt c/o dehydration and lightheadedness on exam - CTH was unremarkable for any acute intracranial abnormalities. No orthostatis noted on exam - c/w LR @ 75 ml/hr Bacteriuria 04/05/2022 Assessment & Plan (04/05/2022 12:39 AM WALKING DRAGLINE OILER): - UA was + for LE and trace Bacteria, given immunocompromised status, will start on Cefepime IV 2g q12h pending cultures - Taper coverage based on c&s Headache 04/05/2022 Assessment & Plan (04/05/2022 12:40 AM WALKING DRAGLINE OILER): - Pt c/o intermittent headaches and lightheadedness on exam. Given hx of mets CTH was obtained which was unremarkable for any acute intracranial abnormalities. Seasonal allergies 04/05/2022 Assessment & Plan (04/05/2022 12:40 AM WALKING DRAGLINE OILER): - c/w Flonase nasal spray MARAVILLA (dyspnea on exertion) 04/05/2022 Assessment & Plan (04/05/2022 12:48 AM WALKING DRAGLINE OILER): - Pt c/o dyspnea on exertion , can likely be related to metastatic disease progression - EKG was unremarkable on admission while Trop and BNP were also WNL - TTE donw previously in 12/2020 was remarkable for LVEf of 54% with limited study - Plan to repeat TTE Diarrhea in adult patient 04/04/2022 Assessment & Plan (04/05/2022 12:37 AM WALKING DRAGLINE OILER): - Pt presented with worsening NB , [...] for malabsorption can also be considered other aktinson - Will defer starting Metronidazole or Cipro [...] 11/30/2021 Assessment & Plan (03/19/2024 10:38 AM WALKING DRAGLINE OILER): A(n) yearly Medicare Annual Wellness Visit has [...] to establish care has been performed today. Jialyn Condon is not up to date on [...] OK Assessment & Plan (07/08/2022 12:17 PM WALKING DRAGLINE OILER): TSH 0.17 uIU/ml, normal T4 Thyroid dosing has been adjusted, awaiting repeat Assessment & Plan (04/05/2022 12:34 AM WALKING DRAGLINE OILER): - c/w Synthroid 100 mcg po qam [...] zoloft Assessment & Plan (04/05/2022 12:37 AM WALKING DRAGLINE OILER): - c/w Sertraline 25 mg po every [...] meningitis -[facility] --> Posterior T12 Vertebral [...] meningitis -Total spine MRI was ordered [facility] and completed, read pending -Will start [...] 02/18/2021 Assessment & Plan (04/05/2022 12:34 AM WALKING DRAGLINE OILER): - Pt c/o worsening SOB which can [...] dehydration Assessment & Plan (07/08/2022 12:18 PM WALKING DRAGLINE OILER): Renal function decreased, GFR at 42 Creatinine 1.39 Advised on hydration Assessment & Plan (04/05/2022 12:34 AM WALKING DRAGLINE OILER): - c/w Toprol XL 50 mg po [...] recurrence. Assessment & Plan (04/05/2022 12:31 AM WALKING DRAGLINE OILER): - Pt was diagnosed with left renal [...] Medications Current Day (Day 1 , Cycle 17 - Planned for 12/08/2024) Next Day (Day 1, Cycle 18 - Planned for 01/19/2025) everolimus (AFINITOR)lenvatinib (LENVIMA) everolimus (AFINITOR) 5 mg tablet everolimus (AFINITOR) 5 mg tablet Zofran* Plan Start Date:07/18/2021 Plan Provider:Lorene Prince MD Linked Problems Malignant neoplasm of left k idney (HCC) Treatment Medications No medications scheduled. Past Treatment and Therapy Plans Oncology Chemotherapy Treatment Plan Name Start Date Discontinue Date Treatment Medications Discontinue Reason Plan Provider Cycles cabozantinib (Cabometyx) PO Started on 08/04/22) 3 05/15/2023 No medications scheduled. Progression Lorene Prince MD 8 of 9 cycles started Nivolumab 480 mg 28 Day Cycles 1 01/17/2021 nivolumab (OPDIVO) Progressive Disease Lorene rPince MD Treatment not started Oncology Treatment (2) Plan Name Start Date Discontinue Date Treatment Medications Discontinue Reason Plan Provider Cycles [id number] [facility] [id number] Part 1 Arm A Nivolumab + Bempegaldesleukin + Axitinib 01/18/20 21 07/24/2022 [facility] (/ [id number]) Nivolumab/BMS -[id number] IVPB in 50 mLINV-[facility]_ H (/ [id number]) NKTR-214 (BEMPEGALDESL EUKIN) IVPB in 50 mL () IN[facility] axitinib (/ [id number]) Progressive Disease Lorene Prince MD 24 of 33 cycles started Lifetime Dose Tracking * Chemical Lifetime Dose Automatic Entry Manual Entr y Fluoro Time 1 minutes 1 minutes 0 minutes Air kerma at the reference point (Ka,r) 808 mGy 8 08 mGy 0 mGy DLP 24,683 mGycm 24,683 mGycm 0 mGycm Resolved Problems Problem Noted Date Diagnosed Date Resolved Date Hypovolemia 09/02/2023 09/03/2023 Assessment & Plan (09/02/2023 12:11 PM CDT): Orthostatic vitals + on arrival. Frequent diarrhea -strict I/O. mIVF. Keep even Pulmonary emboli 04/05/2022 07/18/2023 Assessment & Plan (04/05/2022 12:39 AM WALKING DRAGLINE OILER): - Pt has documented hx of PE, has been off AC for over 3 months Total perforation of left tympanic membrane 09/12/2021 02/10/2022 Overview (09/12/2021): Added automatically from request for surgery [id number] Left renal mass 01/03/2019 01/24/2019 Overview (01/03/2019): Added automatically from request for surgery [id number]
--- NOTE | 2024-12-18 10:11 | ECG_ITS ---
Test Date: 2024-12-18 10:16:08 Measurements Intervals [place]ard Rate: 77 P: 34 DE: 181 QRS: 7 QRSD: 86 T: 74 QT: 363 QTc: 412 Interpretive Statements SINUS RHYTHM CONSIDER INFERIOR INFARCT, AGE INDETERMINATE NONSPECIFIC T-WAVE ABNORMALITY- ANT/HIGHLAT LEADS BASELINE ARTIFACT- I, II, III, AVR, AVL, AVF, V1-V6 ABNORMAL ECG No previous ECG available for comparison Electronically Signed On 12-18-2024 12:28:10 CDT by Ryan Farfan D.O.
--- NOTE | 2024-12-18 10:45 | PC.NURSE ---
pt straight cath with no output. Fluids started
--- NOTE | 2024-12-18 10:59 | ED.NAVMDI ---
HPI - Nausea/Vomiting/Diarrhea General Chief complaint: Nausea/Vomiting/Diarrhea Stated complaint: N/V/D - sent by oncologist Time Seen by Provider: 12/18/24 10:11 History of Present Illness HPI Narrative: Patient is a 64 year old female who presents to the ER with diarrhea and vomiting that started around 6:00 p.m. last night. She reports she is currently receiving oral chemo for kidney and lung cancer treatment. Patient reports she has had episodes of diarrhea and vomiting in the past where she has had to come into the ER for IV rehydration. She reports she spoke with her oncologist, Dr. Diaz at [facility], who advised her to come in for further evaluation. Patient reports she has had 10 episodes of diarrhea, along with 4 episodes emesis, since 6:00 p.m. She denies any urinary symptoms, recent fevers, or acute back pain. Patient endorses abdominal pain and reports ?it feels like a bag pipe is going off in my abdomen. She endorses a history of thyroid disorder, hypertension, and kidney/lung cancer. Pt denies any recent antibiotic use. Related Data Home Medications ?Medication ?Instructions ?Recorded ?Confirmed ?Last Taken ?Type cetirizine 10 mg tablet 10 mg PO DAILY 02/23/20 07/12/24 03/01/20 History Daily Multi-Vitamin 1 tablet PO DAILY 05/15/21 07/12/24 Unknown History Inlyta 5 mg PO DAILY 05/15/21 07/12/24 05/15/21 21:00 History acetaminophen 650 mg PO Q6-8H PRN Pain 05/15/21 07/12/24 Unknown History levothyroxine 25 mcg tablet 25 mcg PO DAILY 05/15/21 07/12/24 Unknown History (Synthroid) amlodipine 5 mg tablet (Norvasc) 5 mg PO DAILY 07/12/24 07/12/24 Unknown History fexofenadine 180 mg tablet 180 mg PO DAILY 07/12/24 07/12/24 Unknown History (Gifty Allergy) lenvatinib 8 mg/day (4 mg x 2) 8 mg PO DAILY 07/12/24 07/12/24 Unknown History capsule (Lenvima) pantoprazole 40 mg tablet,delayed 40 mg PO QAM 07/12/24 07/12/24 Unknown History release Allergies Allergy/AdvReac Type Severity Reaction Status Date / Time codeine Allergy Severe Hives Verified 07/12/24 02:58 Penicillins Allergy Severe Hives Verified 07/12/24 02:58 Sulfa (Sulfonamide Allergy Severe Hives Verified 07/12/24 02:58 Antibiotics) lactase (From Dairy Aid) Allergy Migraine Verified 07/12/24 02:58 Rifton And Derivatives AdvReac Intermediate Migraine Verified 07/12/24 02:58 egg AdvReac Intermediate Migraine Verified 07/12/24 02:58 egg yolk AdvReac Intermediate Migraine Verified 07/12/24 02:58 fish derived AdvReac Intermediate Migraine Verified 07/12/24 02:58 milk AdvReac Intermediate Migraine Verified 07/12/24 02:58 nut - unspecified AdvReac Intermediate Migraine Verified 07/12/24 02:58 Review of Systems Review of Systems: All systems reviewed & are unremarkable except as noted in HPI and below PMFSH Past Medical History Medical History Metastatic renal cell carcinoma to lung Vitamin D deficiency Hypertension Allergic asthma Surgical History Surgical History History of arthroscopic knee surgery History of cholecystectomy History of left nephrectomy (01/2019) Family History Family History Father Family history of blood dyscrasia, Onset Age: 68 Family history of heart disease in male family member before age 55 Patient's father is Asthma Mother Family history of elevated blood lipids Family history of diabetes mellitus in first degree relative Hypertension Diabetes mellitus Sibling Asthma Diabetes mellitus Family history of sickle cell trait Multiple sclerosis Lupus Hypertension Grandparent Family history of malignant neoplasm of breast Family history of blood dyscrasia Social History Social History Social History: Surrogate decision maker: Sha Condon, son. Code status: Full code. Smoking status: Never smoker Second hand tobacco smoke exposure: No Alcohol intake: never Substance use: never Substance use type: does not use Do You Feel Safe in your Home?: Yes Lack of Transportation: No Lack of Food: Never True Current Housing: I Have Housing Concerned About Future Housing: No Difficulty Paying Gas/Electric Bills: No Difficulty Paying for Meds: No Currently Unemployed: No Education: Bachelor's Degree Difficulty w/ Childcare or Family Care: No Living arrangements: with family Occupation/Education: unemployed Additional occupation/education comments: On disability. Gender identity (if verbalized by the patient): Female Sexual Orientation (if Verbalized by the Patient): Straight or Heterosexual Spiritual care concerns: No Exam Narrative: GENERAL: Well appearing, well-nourished, non-toxic, in no acute distress. HEAD: Normocephalic, atraumatic. NECK: Supple. No adenopathy, no masses. RESPIRATORY: Airway patent, respirations nonlabored. Clear to auscultation bilaterally, no rales, rhonchi, wheezing. CARDIOVASCULAR: Tachycardia without murmurs, rubs, or gallops. Peripheral pulses 2+ and equal bilaterally. ABDOMINAL: Soft, generalized tenderness, nondistended. Normoactive BS. MUSCULOSKELETAL: Moves all extremities. Strength/ROM intact without gross deformities. SKIN: Warm, dry, normal color. No rashes. NEURO: A&O X3. Speech clear. Cranial nerves II-XII intact. No ataxic movements. PSYCHIATRIC: Appropriate mood and affect. Normal interaction. Course Vital Signs Vital signs: Vital Signs Temperature 36.9 C 12/18/24 09:57 Pulse Rate 103 H 12/18/24 09:57 Respiratory Rate 20 12/18/24 09:57 Blood Pressure 142/78 H 12/18/24 09:57 Pulse Oximetry 93 12/18/24 09:57 Oxygen Delivery Room Air 12/18/24 09:57 Temperature 36.9 C 12/18/24 09:57 Pulse Rate 73 12/18/24 14:15 Respiratory Rate 16 12/18/24 14:15 Blood Pressure 137/86 12/18/24 14:15 Pulse Oximetry 100 12/18/24 14:15 Oxygen Delivery Room Air 12/18/24 09:57 MDM - Nausea/Vomiting/Diarrhea MDM Narrative Medical decision making narrative: Patient is a 64 year old female who presents to the ER with diarrhea and vomiting that started around 6:00 p.m. last night. She reports she is currently receiving oral chemo for kidney and lung cancer treatment. Patient reports she has had episodes of diarrhea and vomiting in the past where she has had to come into the ER for IV rehydration. She reports she spoke with her oncologist, Dr. Diaz at [facility], who advised her to come in for further evaluation. Patient reports she has had 10 episodes of diarrhea, along with 4 episodes emesis, since 6:00 p.m. She denies any urinary symptoms, recent fevers, or acute back pain. Patient endorses abdominal pain and reports ?it feels like a bag pipe is going off in my abdomen. She endorses a history of thyroid disorder, hypertension, and kidney/lung cancer. Pt denies any recent antibiotic use. Labs Ordered: CBC, CMP, PTT, INR, lactic acid, lipase, UA Imaging Ordered: KUB Medications Ordered: 1 L normal saline IV bolus, Reglan 10 mg IV, Benadryl 25 mg IV, Zofran 8 mg IV Results: Pt's KUB indicates paravertebral left paravertebral surgical clips consistent with prior left nephrectomy. Cholecystectomy clips in right upper quadrant. Moderate amount of gas scattered throughout the colon. No dilated loops of gas-filled bowel to suggest obstruction. Several phleboliths in the pelvis along with large calcification right hemipelvis corresponding to a degenerated uterine fibroid on prior CT. Multilevel severe lumbar facet osteoarthritis. Patient's CBC indicates a RBC of 5.8. Her CMP indicates a chloride of 111, carbon dioxide of 17, creatinine is 1.11, GFR 49, glucose of 111, calcium of 10.3, AST of 42, and total protein of 9.1. Patient's urinalysis indicates a protein of 1+. Diagnosis: gastroenteritis, nausea and vomiting, diarrhea Patient Education/Shared MDM: Results of lab work and imaging shared with patient. She endorses improvement of symptoms following medication administration. Pt was PO challenged and she was able to keep fluids down. Her symptoms have not completely resolved, but they have decreased. Patient strongly advised to maintain hydration status upon discharge and follow-up with her PCP and oncologist as soon as possible. She will be discharged home with a prescription for Reglan p.o. and Lomotil. Strict return precautions provided. Patient verbalized understanding and is in agreement with plan. Vital signs stable at time of discharge. All questions answered. Differential Diagnosis Differential diagnosis: Likely food poisoning, gastroenteritis and dehydration Lab Data Attestation: I reviewed the patient's lab results. 12/18/24 10:53 12/18/24 10:53 Labs: Lab Results 12/18/24 12/18/24 Range/Units 10:53 12:10 WBC 6.1 (4.5-10.0) K/mm3 RBC 5.80 H (4.2-5.4) M/mm3 Hgb 13.4 (12.0-15.0) g/dL Hct 44.4 (37.0-47.0) % MCV 76.6 L (80-100) fl MCH 23.1 L (26-34) pg MCHC 30.2 L (32-36) g/dl RDW 20.4 H (11.5-14.5) % Plt Count 156 (150-375) k/mm3 MPV 10.8 H (7.4-10.4) fl Immature Gran % (Auto) 0.3 (0-0.5) % Neut % (Auto) 60.6 (45.5-73.1) % Lymph % (Auto) 31.8 (18.3-44.2) % Harmon % (Auto) 6.4 (2.6-8.5) % Eos % (Auto) 0.7 (0-4.4) % Baso % (Auto) 0.2 (0.2-1.2) % Lymph # (Auto) 1.93 (0.9-3.2) K/mm3 Harmon # (Auto) 0.4 (0.1-0.6) K/mm3 Eos # (Auto) 0.0 (0-0.3) K/mm3 Baso # (Auto) 0.0 (0.0-0.1) K/mm3 Abs Immat Gran (auto) 0.02 (0.00-0.031) K/mm3 Absolute Neuts (auto) 3.7 (1.3-6.7) K/mm3 Absolute Nucleated RBC 0.000 (0.0-0.012) K/mm3 Nucleated RBC % 0.0 (0.0-0.2) % % Immature Plt Fraction 7.3 (0.9-11.2) % PT 13.1 (11.1-14.7) Seconds INR 1.0 APTT 24.7 (22.3-36.8) Seconds Sodium 139 (137-145) mmol/L Potassium 4.2 (3.4-5.0) mmol/L Chloride 111 H (98-107) mmol/L Carbon Dioxide 17 L (22-30) mmol/L Anion Gap 11 (4-12) mmol/L BUN 14 (7-17) mg/dL Creatinine 1.11 H (0.7-1.0) mg/dL Estim Creat Clear Calc 41 ml/min Estimated GFR 49 L (59 - ) Glucose 111 H (65-110) mg/dL Lactic Acid 1.3 (0.7-2.0) mmol/L Calcium 10.3 H (8.4-10.2) mg/dL Total Bilirubin 1.2 (0.2-1.3) mg/dL AST 42 H (14-36) U/L ALT 25 (6-35) U/L Alkaline Phosphatase 78 (38-126) U/L Total Protein 9.1 H (6.3-8.2) g/dL Albumin 4.7 (3.5-5.1) g/dL Lipase 114 (23-300) U/L Urine Color Yellow (Yellow) Urine Appearance Clear (Clear) Urine pH 5.5 (5.0-9.0) Ur Specific [place] 1.012 (1.001-1.035) Urine Protein 1+ H (Negative) mg/dL Urine Glucose (UA) Negative (Negative) mg/dL Urine Ketones Negative (Negative) mg/dL Ur Blood (Man) Negative (Negative) Urine Nitrate Negative (Negative) Urine Bilirubin Negative (Negative) Urine Urobilinogen 0.2 (<2.0) mg/dL Leukocyte Esterase Rfl Negative (Negative) ASCENCION/UL Urine RBC 0-2 (0-2) /hpf Urine WBC 0-5 (0-3) /hpf Ur Squamous Epith Cells None seen (Few) /hpf Urine Bacteria None seen /hpf Urine Casts 3-5 Imaging Data Attestation: I personally reviewed and interpreted this imaging study as follows: Radiologist's impression: Impressions Abdomen X-Ray 12/18/24 15:34 IMPRESSION: 1. Nonobstructive bowel gas pattern. Discharge Plan Discharge Clinical Impression: Nausea & vomiting, Chemotherapy induced diarrhea, Gastroenteritis, Dehydration, mild, Abdominal pain with vomiting Patient Disposition: Home Condition: Stable Instructions: Antibiotic Form Patient Language: Setswana Prescriptions: No Action fluticasone propionate 50 mcg/actuation spray,suspension 1 spray intranasal Q12H Qty: 18.2 3RF Rx Instructions: administer into each nostril sertraline 25 mg tablet 25 mg PO BID Qty: 180 1RF cyclobenzaprine 7.5 mg tablet 7.5 mg PO TID PRN (Reason: muscle spasm) Qty: 90 0RF promethazine 25 mg tablet 25 mg PO TID PRN (Reason: nausea and vomiting) Qty: 90 0RF levothyroxine [Synthroid] 25 mcg tablet 25 mcg PO DAILY Patient Comments: 88MCG DAILY Daily Multi-Vitamin 1 tablet PO DAILY Inlyta 5 mg PO DAILY acetaminophen 650 mg PO Q6-8H PRN (Reason: Pain) Lenvima 8 mg/day (4 mg x 2) capsule 8 mg PO DAILY Rx Instructions: TAKES [id number] amlodipine [Norvasc] 5 mg tablet 5 mg PO DAILY fexofenadine [Gifty Allergy] 180 mg tablet 180 mg PO DAILY pantoprazole 40 mg tablet,delayed release (DR/EC) 40 mg PO QAM cetirizine 10 mg Tablet 10 mg PO DAILY ipratropium-albuterol 0.5 mg-3 mg(2.5 mg base)/3 mL solution for nebulization 3 ml inhalation Q4H PRN (Reason: shortness of breath or wheezing) Qty: 180 0RF tramadol 50 mg tablet 50 mg PO Q6H PRN (Reason: pain) Qty: 30 0RF Follow-up/Referrals: PHYSICIAN NOT ON STAFF,NONSTAFF [Primary Care Provider] -
[2024-12-18 11:03] LABS: Hematocrit 44.4 % (37.0-47.0); Hemoglobin 13.4 g/dL (12.0-15.0); Immature Granulocyte Percent A 0.3 % (0-0.5); Immature Platelet Fraction Pct 7.3 % (0.9-11.2); Lymphocytes Absolute Auto 1.93 K/mm3 (0.9-3.2); Mean Corpuscular HGB Conc 30.2 g/dl (32-36); Mean Corpuscular Hemoglobin 23.1 pg (26-34); Mean Corpuscular Volume 76.6 fl (80-100); Nucleated Red Blood Cells Absolute Auto 0.000 K/mm3 (0.0-0.012); Nucleated Red Blood Cells Perc 0.0 % (0.0-0.2); Platelet Count Result 156 k/mm3 (150-375); Red Blood Count 5.80 M/mm3 (4.2-5.4); White Blood Count 6.1 K/mm3 (4.5-10.0)
[2024-12-18] MEDS: SODIUM CHLORIDE 0.9% IV 1,000 ML 999 ML IV CONT (11:08)
[2024-12-18] MEDS: METOCLOPRAMIDE HCL INJ 10 MG/2 ML VIAL IV PUSH (11:10)
[2024-12-18 11:14] LABS: Alanine Aminotransferase 25 U/L (6-35); Albumin Level 4.7 g/dL (3.5-5.1); Alkaline Phosphatase 78 U/L (38-126); Anion Gap 11 mmol/L (4-12); Aspartate Amino Transferase 42 U/L (14-36); Bilirubin,Total 1.2 mg/dL (0.2-1.3); Blood Urea Nitrogen 14 mg/dL (7-17); Calcium 10.3 mg/dL (8.4-10.2); Carbon Dioxide 17 mmol/L (22-30); Chloride 111 mmol/L (98-107); Estimated CRCL calculation 41 ml/min; Estimated Glomerular Filt Rate 49; Glucose 111 mg/dL (65-110); INR 1.0; Lipase 114 U/L (23-300); Partial Thromboplastin Time 24.7 Seconds (22.3-36.8); Potassium 4.2 mmol/L (3.4-5.0); Prothrombin Time 13.1 Seconds (11.1-14.7); Sodium 139 mmol/L (137-145); Total Protein 9.1 g/dL (6.3-8.2)
--- OUTSIDE RECORDS SUMMARY | 2024-12-18 11:27 | XMS_ITS | Encounter Summary ---
Author Organization [facility] Address [address] [place] [address] Phone Care Team Providers Care Private Wealth Advisor Name Role Phone Lorene Prince MD Unavailable [phone] Akhil Russo MD Primary Care Provider [phone] Mili Mcleod NP Unavailable Guillermina Stokes MD Unavailable Encounter Details Date Type Department Care Team (Late st Contact Info) Description 12/18/2024 Telephone [facility] Oncology [address] [facility] [address] [place] [address] Lorene Prince MD [address] [place] [address] Social History Tobacco Use Types Packs/Day Years Used Date Smoking Tobacco: Never Passive Smoke Exposure: Past Smokeless Tobacco: Never Alcohol Use Standard Drinks/Week Comments Never 0 (1 standard drink = 0.6 oz pur e alcohol) [facility] Utilities Answer Date Recorded In the past 12 months has [employer] electric, gas, oil, or water company threatened [...] How often do you attend chur or voodoo services? 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
--- OUTSIDE RECORDS SUMMARY | 2024-12-18 11:27 | XMS_ITS | Encounter Summary ---
Author Organization [facility] Address [address] [place] [address] Phone Care Team Providers Care Conveyor Loader Name Role Phone Lorene Prince MD Unavailable [phone] Akhil Russo MD Primary Care Provider [phone] RaterMili NP Unavailable Guillermina Sotkes MD Unavailable Encounter Details Date Type Department Care Team (Late st Contact Info) Description 10/10/2022 Telephone [facility] ([facility]) - Health system ENT [address] [facility] [address]th [place] [address] [place] [id number] Goyo Salinas MD [address] [place] [address] Social History Tobacco Use Types Packs/Day Years [...] on file 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 difficile suspected 08/22/2023 08/22/202308/22 3:06 AM CDT C. difficile suspected 09/01/2023 09/02/202309/04 3:05 AM CDT Norovirus suspected 09/01/2023 09/02/2023 09/05/19 3:05 AM CDT documented as of this encounter Care Teams Conveyor Loader Relationship Specialty Start Date End Date Akhil Russo MD [address] [place] [address] PCP - General Family Medicine 11/29/21 Lorene Prince MD Medical Oncologist/Hematologis t Medical Oncology 01/31/21 Mili Mcleod NP [address] [place] [address] Nurse Practitioner Cardiovascular Disease 07/18/22 Guillermina Stokes MD [id number] [address] [place] [address] Referring Physician Endocrinology Diabetes & Metabolism 08/20/23 documented as of this encounter
--- OUTSIDE RECORDS SUMMARY | 2024-12-18 11:27 | XMS_ITS | Encounter Summary ---
Author Organization [facility] Address [address] [place] [address] Care Team Providers Care Prop Worker Name Role Phone Fide Contreras MD Primary Care Provider Reason for Visit * Diagnostic Imaging (Routine) - Closed Specialty Diagnoses / Procedures Referred By Yrn mei Referred To Contact Diagnoses Malignant neoplasm of left kidney (HCC) Malignant neoplasm of left kidney (HCC) Procedures Breast Imaging Screening Outside Reference Referral, Self Referral ID Status Reason Start Date Expiration Date Visits Re quested Visits Authorized [id number] Closed 10/05/2022 11/04/2023 1 1 Encounter Details Date Type Department Care Team (Late st Contact Info) Description 10/31/2019 Hospital Encounter [facility] [address] [place] [address] Social History Tobacco Use Types Packs/Day Years Used Date Smoking Tobacco: Never Passive Smoke Exposure: Past Smokeless Tobacco: Never Alcohol Use Standard Drinks/Week Comments Never 0 (1 standard drink = 0.6 oz pur e alcohol) [facility] Utilities Answer Date Recorded In the past 12 months has [employer] electric, gas, oil, or water company threatened [...] How often do you attend chur or faith services? 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 There will be no report generated by a [facility] Radiologist. Narrative [id number] - 10/05/2022 [...] C. difficile suspected 07/05/2023 07/05/2023 10:37 PM SAXOPHONE PLAYER COVID: Suspected 08/22/2023 08/22/2023 08/22/2023 5:03 PM CDT C. difficile suspected 08/22/2023 08/22/202308/22 3:06 AM CDT C. difficile suspected 09/01/2023 09/02/202309/04 3:05 AM CDT Norovirus suspected 09/01/2023 09/02/2023 09/05/19 3:05 AM CDT documented as of this encounter Care Teams Prop Worker Relationship Specialty Start Date End Date Fide Contreras MD [address] [facility] [address] [place] [address] PCP - General Family Medicine 01/01/19 11/15/21 documented as of this encounter
--- OUTSIDE RECORDS SUMMARY | 2024-12-18 11:27 | XMS_ITS | Clinical Summary ---
Author Organization [facility] Address [address] [place] [address] Care Team Providers Care Studio Technician Video Operator Name Role Phone Lorene Prince MD Unavailable [phone] Akhil Russo MD Primary Care Provider [phone] Mili Mcleod NP Unavailable Guillermina Stokes MD Unavailable [phone] Allergies Active Allergy Reactions Criticality Noted Date Comments [place] And Derivatives Diarrhea Low 01/09/2019 Codeine Hives [...] resolve. Assessment & Plan (04/05/2022 12:32 AM PARACHUTE/COMBATANT DIVER OFFICER): - Pt c/o dehydration and lightheadedness on exam - CTH was unremarkable for any acute intracranial abnormalities. No orthostatis noted on exam - c/w LR @ 75 ml/hr Bacteriuria 04/05/2022 Assessment & Plan (04/05/2022 12:39 AM PARACHUTE/COMBATANT DIVER OFFICER): - UA was + for LE and trace Bacteria, given immunocompromised status, will start on Cefepime IV 2g q12h pending cultures - Taper coverage based on c&s Headache 04/05/2022 Assessment & Plan (04/05/2022 12:40 AM PARACHUTE/COMBATANT DIVER OFFICER): - Pt c/o intermittent headaches and lightheadedness on exam. Given hx of mets CTH was obtained which was unremarkable for any acute intracranial abnormalities. Seasonal allergies 04/05/2022 Assessment & Plan (04/05/2022 12:40 AM PARACHUTE/COMBATANT DIVER OFFICER): - c/w Flonase nasal spray MARAVILLA (dyspnea on exertion) 04/05/2022 Assessment & Plan (04/05/2022 12:48 AM PARACHUTE/COMBATANT DIVER OFFICER): - Pt c/o dyspnea on exertion , can likely be related to metastatic disease progression - EKG was unremarkable on admission while Trop and BNP were also WNL - TTE donw previously in 12/2020 was remarkable for LVEf of 54% with limited study - Plan to repeat TTE Diarrhea in adult patient 04/04/2022 Assessment & Plan (04/05/2022 12:37 AM PARACHUTE/COMBATANT DIVER OFFICER): - Pt presented with worsening NB [...] 11/30/2021 Assessment & Plan (03/19/2024 10:38 AM PARACHUTE/COMBATANT DIVER OFFICER): A(n) yearly Medicare Annual Wellness Visit [...] OK Assessment & Plan (07/08/2022 12:17 PM PARACHUTE/COMBATANT DIVER OFFICER): TSH 0.17 uIU/ml, normal T4 Thyroid dosing has been adjusted, awaiting repeat Assessment & Plan (04/05/2022 12:34 AM PARACHUTE/COMBATANT DIVER OFFICER): - c/w Synthroid 100 mcg po [...] zoloft Assessment & Plan (04/05/2022 12:37 AM PARACHUTE/COMBATANT DIVER OFFICER): - c/w Sertraline 25 mg po [...] meningitis -Total spine MRI was ordered in [facility] and completed --> Posterior T12 [...] meningitis -Total spine MRI was ordered in [facility] and completed, read pending -Will [...] 02/18/2021 Assessment & Plan (04/05/2022 12:34 AM PARACHUTE/COMBATANT DIVER OFFICER): - Pt c/o worsening SOB which [...] dehydration Assessment & Plan (07/08/2022 12:18 PM PARACHUTE/COMBATANT DIVER OFFICER): Renal function decreased, GFR at 42 Creatinine 1.39 Advised on hydration Assessment & Plan (04/05/2022 12:34 AM PARACHUTE/COMBATANT DIVER OFFICER): - c/w Toprol XL 50 mg [...] recurrence. Assessment & Plan (04/05/2022 12:31 AM PARACHUTE/COMBATANT DIVER OFFICER): - Pt was diagnosed with left [...] 07/18/2023 Assessment & Plan (04/05/2022 12:39 AM PARACHUTE/COMBATANT DIVER OFFICER): - Pt has documented hx of PE, has been off AC for over 3 months Total perforation of left tympanic membrane 09/12/2021 02/10/2022 Overview (09/12/2021): Added automatically from request for surgery [id number] Left renal mass 01/03/2019 01/24/2019 Overview (01/03/2019): Added automatically from request for surgery [id number] Encounters Date Type Department Care Team Description 12/18/2024 Orders Only [facility] [address] [place] [phone] Lorene Prince MD 12/18/2024 Telephone [facility] [address] [place] [phone] Lorene Prince MD 12/18/2024 Orders Only [facility] [address] [place] [phone] Lorene Prince MD 12/08/2024 11:15 AM CDT Office Visit [facility] [address] [place] [phone] Lorene Prince MD Malignant neoplasm of left kidney (CMS/HCC) (HCC) (Primary Dx); Secondary malignant neoplasm of left lung (HCC); Malignant neoplasm of left kidney (HCC) 12/08/2024 10:15 AM CDT Lab [facility] Lab [address] [place] [phone] Malignant neoplasm of left kidney (CMS/HCC) (HCC) 12/08/2024 10:00 AM CDT Lab [facility] [place] - Lab Collection [facility] [facility] Floor 5 [place] [address] Malignant neoplasm of left kidney (CMS/HCC) (HCC) 11/26/2024 9:40 AM CDT Office Visit [facility] [address] [facility] 2nd Floor [address] [place] [address] Govind Yee MD Trigger finger of left thumb (Primary Dx); Arthritis of carpometacarpal (CMC) joint of right thumb 11/14/2024 1:15 PM CDT Office Visit [facility] [address] [facility] 5th [place] [address] [place] [address] Dagoberto Dietrich MD Stage 3a chronic kidney disease (HCC) (Primary Dx); Persistent proteinuria; Malignant neoplasm of left kidney (CMS/HCC) (HCC); Primary hypertension; Hyperkalemia 11/11/2024 9:30 AM CDT Office Visit [facility] [address] [facility] Medical [address] [place] [phone] Monroe Pelletier MD Primary hypertension (Primary Dx); Mixed hyperlipidemia; 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; MARAVILLA (dyspnea on exertion); History of pulmonary embolism; Hypothyroidism due to medication; Malignant neoplasm of left kidney (CMS/HCC) (HCC); Diarrhea, unspecified type; Stage 3a chronic kidney disease (HCC); Secondary malignant neoplasm of left lung (HCC) 10/27/2024 1:45 PM CDT Lab [facility] - Lab Collection [facility] Floor 5 [place] [address] Malignant neoplasm of left kidney (HCC); Secondary malignant neoplasm of left lung (HCC) 10/27/2024 1:00 PM CDT Office Visit [facility] [address] [place] [address] Floor 5 [place] [address] Lupis Friend NP Malignant neoplasm of left kidney (CMS/HCC) (HCC) (Primary Dx); Secondary malignant neoplasm of left lung (HCC); Malignant neoplasm of left kidney (HCC) 10/27/2024 12:00 PM CDT Lab [facility] Lab [address] [facility] Floor 5 [place] [address] Malignant neoplasm of left kidney (CMS/HCC) (HCC) 10/27/2024 11:45 AM CDT Clinical Support [facility] - Lab Collection [address] [facility] Floor 5 [place] [address] Malignant neoplasm of left kidney (CMS/HCC) (HCC) 10/27/2024 9:53 AM CDT - 10/27/2024 11:59 PM CDT Hospital Encounter [facility] [place] [facility] ([facility]) [address] [place] [phone] Lorene Prince MD Malignant neoplasm of left kidney (CMS/HCC) (HCC) Discharge Disposition: Discharge to home or self care 10/27/2024 Orders Only [facility] [address] [facility] Floor 8 [place] [address] Lupis Friend NP Malignant neoplasm of left kidney (HCC) (Primary Dx); Secondary malignant neoplasm of left lung (HCC) 10/23/2024 7:40 AM CDT - 10/23/2024 11:59 PM CDT Hospital Encounter [facility] at [facility] [address] [place] [address] Right knee pain, unspecified chronicity Discharge Disposition: Discharge to home or self care 10/23/2024 7:40 AM CDT Office Visit [facility] [address] [facility] 1st Floor [address] [place] [address] Ezekiel Holbrook MD Right knee pain, unspecified chronicity; Primary osteoarthritis of right knee 10/22/[address] [facility] Accountable Care Organization [address] [place] [address] Jennifer Rodas MA Chart Review (Med adherence ) 10/06/[address] [facility] Medical Group Primary Care at [address] [phone] Akhil Russo MD 10/03/[address] 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 ([facility]) [address] [place] [address] Screening mammogram, encounter for Discharge Disposition: Discharge to home or self care 09/20/2024 Results Follow-Up [facility] Primary Care at [address] [phone] Akhil Russo MD Measles IgG antibody Blood, CBC with auto differential, Comprehensive metabolic panel, Additional followed-up results: 6 09/17/2024 Orders Only [facility] [address] [place] [address], [address] [place] [address] Maria L Cm CMA 09/17/2024 Telephone [facility] [address] [place] [phone] Addis Garcia MS from Last 3 [...] 1 Algene Clotting disorder Father's Brother 2 [place] Hearing loss Maternal Grandmother Louise Agarwal Heart [...] drink = 0.6 oz pur e alcohol) [facility] Utilities Answer Date Recorded In the past 12 months has [employer], gas, oil, or water [employer] threatened to shut off services in [...] 09/04/2023 How often do you attend [facility] or buddhist services? 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 Creatinine Ur 145.7 mg/dL [facility] Comment: Interpretive Data No reference range established. Current interpretive data was last revised 2018. Protein/creatinin e ratio 111.2 0.0 - 180.0 mg/g CR [facility] Urine 12/08/2024 10:1 0 AM CDT 12/08/2024 10:23 AM CDT Lupis Friend NP LAB URINE ORDERABLES Final Result [facility] [place] [address] * (ABNORMAL) eGFR (12/08/2024 10:00 AM CDT) [...] 10:10 AM CDT us Lupisunique Burnette Phuc BUCKET CHUCKER LAB BLOOD ORDERABLES Final Result [facility] PIP[facility] [place] [address] * Differential, auto (12/08/2024 10:00 AM CDT) Neutrophil abs 3.73 1.50 - 6.50 K/cumm Comment:Testing performed by : [facility], [address] [place] [address] Lymphocyte abs 2.00 0.80 - 3.30 K/cumm CERNER VERONIQUE Comment:Testing performed by : [facility], [address] [place], [place] [phone] Monocyte abs 0.55 0.20 - 0.80 K/cumm CERNER VERONIQUE Comment:Testing performed by : [facility], [address] [place] [place] [address] Eosinophil abs 0.08 0.00 - 0.50 K/cumm CERKOSTA PIPER Comment:Testing performed by : [facility], [address] [place] [phone] Basophil abs 0.06 0.00 - 0.10 K/cumm CERNER BJ Comment:Testing performed by : [facility], [address] [place] [address] Neutrophil pct 58.1 % C[facility] Comment: Interpretive Data Percent cell count reference ranges are not reported, since discordance with absolute values may lead to misinterpretation of CBC data. Current Interpretive Data was last revised on 2017. Testing performed by: [facility], [address] [place] [phone] Lymphocyte pct 31.2 % CERNER BJ Comment: Interpretive Data Percent cell count reference ranges are not reported, since discordance with absolute values may lead to misinterpretation of CBC data. Current Interpretive Data was last revised on 2017. Testing performed by: [facility], [address] [place] [phone] Monocyte pct 8.5 % [facility] Comment: Interpretive Data Percent cell count reference ranges are not reported, since discordance with absolute values may lead to misinterpretation of CBC data. Current Interpretive Data was last revised on 2017. Testing performed by: [facility], [address] [place], [place] [phone] Eosinophil pct 1.2 % [facility] Comment: Interpretive Data Percent cell count reference ranges are not reported, since discordance with absolute values may lead to misinterpretation of CBC data. Current Interpretive Data was last revised on 2017. Testing performed by: [facility], [address] [place], [place] [phone] Basophil pct 1.0 % [facility] Comment: Interpretive Data Percent cell count reference ranges are not reported, since discordance with absolute values may lead to misinterpretation of CBC data. Current Interpretive Data was last revised on 2017. Testing performed by: [facility], [address] [place] [phone] Blood 12/08/2024 10:0 0 AM CDT 12/08/2024 10:08 AM CDT [facility] LAB BLOOD ORDERABLES Final Result Performing Organization Address City/[facility]/ZIP Co de Phone Number [facility] [place] [address] * (ABNORMAL) Thyroid Function [place] (12/08/2024 10:00 AM CDT) TSH 0.27(L) 0.30 - 4.20 mcIUnit/mL Blood 12/08/2024 10:0 0 AM CDT 12/08/2024 10:10 AM CDT [facility] [place] BUCKET [facility]ER LAB BLOOD ORDERABLES Final Result Performing Organization Address City/[facility]/ZIP Co de Phone Number [facility] [place] [address] * (ABNORMAL) CBC with auto differential (12/08/2024 10:00 AM CDT) WBC 6.43 3.80 - 9.90 K/cumm Comment:Testing performed by : [facility], [address] [place] [address] Hgb 12.7 11.9 - 15.5 g/dL CERNER BJ Comment:Testing performed by : [facility], [address] [place] [address] Hct 39.4 35.6 - 45.5 % CERNER BJ Comment:Testing performed by : [facility], [address] [place] [address] Plt 204 150 - 400 K/cumm CERNER BJ Comment:Testing performed by : [facility], [address] [place] [address] MPV 8.9 6.8 - 10.4 fL CERNER BJ Comment:Testing performed by : [facility], [address] [place] [address] RBC 5.41(H) 3.90 - 5.20 M/cumm CERNER BJ Comment:Testing performed by : [facility], [address] [place] [address] MCV 72.8(L) 81.3 - 96.4 fL CERNER BJ Comment:Testing performed by : [facility], [address] [place] [address] MCH 23.5(L) 27.1 - 33.3 pg CERNER BJ Comment:Testing performed by : [facility], [address] [place] [address] MCHC 32.4 32.3 - 35.7 g/dL CERNER BJ Comment:Testing performed by : [facility], [address] [place] [address] RDW CV 20.2(H) 11.1 - 14.9 % CERNER BJ Comment:Testing performed by : [facility], [address] [place] [phone] NRBC abs 0.00 0.00 - 0.01 K/cumm [facility] Comment:Testing performed by : [facility], [address] [place] [phone] Blood 12/08/2024 10:0 0 AM CDT 12/08/2024 10:08 AM CDT [facility] LAB BLOOD ORDERABLES Final Result Performing Organization Address City/[facility]/[place] [address] * Vitamin D 25 hydroxy (12/08/2024 10:00 AM CDT) Vitamin D 25-OH 44 30 - 80 ng/mL Blood 12/08/2024 10:0 0 AM CDT 12/08/2024 10:10 AM CDT [facility] LAB BLOOD ORDERABLES Final Result Performing Organization Address [facility] de Phone Number [facility] [place] [address] * (ABNORMAL) T4, free (12/08/2024 10:00 AM CDT) Free T4 1.79(H) 0.90 - 1.70 ng/dL Blood 12/08/2024 10:0 0 AM CDT 12/08/2024 10:10 AM CDT Narrative [facility] PIPER - 12/08/2024 11:11 AM CDT This test was reflexed from a TSH result. [facility] LAB BLOOD ORDERABLES Final Result Performing Organization Address City/[facility] Co de Phone Number [facility] [place] [address] * Lipid panel (12/08/2024 10:00 AM CDT) [...] revised on 2017. Triglycerides 104 <=149 mg/dL [facility] Comment: Interpretive Data Ages < [...] on 2017. HDL 65 >=40 mg/dL [facility] Comment: Interpretive Data Ages < [...] 2017. LDL, calculated 70 <=129 mg/dL [facility] Comment: Interpretive Data Ages < [...] BLOOD ORDERABLES Final Result [facility] PIPER [facility] Department [place] [address] * (ABNORMAL) Comprehensive metabolic panel (12/08/2024 10:00 AM CDT) Sodium 142 135 - 145 mmol/L Potassium, pl 4.1 3.3 - 4.9 mmol/L [facility] Chloride 105 97 - 110 mmol/L [facility] CO2 27 22 - 32 mmol/L [facility] Anion gap 10 2 - 15 mmol/L [facility] BUN 18 6 - 25 mg/dL [facility] Creatinine 1.16(H) 0.60 - 1.10 mg/dL [facility] Glucose 100 70 - 199 mg/dL [facility] Comment: Interpretive Data Fasting glucose >/= [...] 2022. Calcium 9.6 8.5 - 10.3 mg/dL [facility] Bilirubin, total 0.6 0.1 - 1.2 mg/dL [facility] Protein, pl 7.3 6.5 - 8.5 g/dL [facility] Albumin 4.0 3.5 - 5.0 g/dL [facility] Alk phos 72 40 - 130 Units/L [facility] ALT 15 7 - 45 Units/L [facility] AST 28 10 - 45 Units/L [facility] Blood 12/08/2024 10:0 0 AM CDT 12/08/2024 10:10 AM CDT Lupis Friend NP LAB BLOOD ORDERABLES Final Result [facility] [place] [address] * SC INJECTION 1 TENDON SHEATH/LIGAMENT APONEUROSIS (11/26/2024 9:40 [...] IN CLINIC/BEDSIDE ORDERABL ES Final Result * SC ARTHROCENTESIS ASPIR&/INJ SMALL JT/BURSA W/O US (11/26/2024 [...] Potassium, whole blood (10/27/2024 1:23 PM CDT) [facility] Potassium, bld 4.3 3.3 - 4.9 mmol/L Blood 10/27/2024 1:23 PM CDT 10/27/2024 1:41 PM CDT [facility] LAB BLOOD ORDERABLES Final Result Performing Organization Address [facility] Co de Phone Number [facility] [place] [address] * AST (10/27/2024 1:23 PM CDT) [facility] AST 30 10 - 45 Units/L Blood 10/27/2024 1:23 PM CDT 10/27/2024 1:32 PM CDT [facility] LAB BLOOD ORDERABLES Final Result Performing Organization Address [facility] Co de Phone Number [facility] [place] [address] * Protein / creatinine ratio, urine, random (10/27/2024 11:57 AM CDT) [facility] Protein, ur, quant 16.0 mg/dL Comment: Interpretive Data No reference range established. Current interpretive data was last revised 2018. Creatinine Ur 157.0 mg/dL [facility] Comment: Interpretive Data No reference range established. Current interpretive data was last revised 2018. Protein/creatinin e ratio 101.9 0.0 - 180.0 mg/g CR [facility] Urine 10/27/2024 11:5 7 AM CDT 10/27/2024 12:20 PM CDT us Lorene Prince MD LAB URINE ORDERABLES F inal Result Performing Organization Address [facility] Co de Phone Number [facility] [place] [address] * (ABNORMAL) eGFR (10/27/2024 11:42 AM CDT) [...] ORDERABLES F inal Result Performing Organization Address City/[facility]/ZIP Co de Phone Number [facility] [place] [address] * Differential, auto (10/27/2024 11:42 AM CDT) Neutrophil abs 2.18 1.50 - 6.50 K/cumm Comment:Testing performed by : [facility], [address] [place] [address] Lymphocyte abs 1.42 0.80 - 3.30 K/cumm C[facility] Comment:Testing performed by : [facility], [address] [place] [address] Monocyte abs 0.30 0.20 - 0.80 K/cumm [facility] Comment:Testing performed by : [facility], [address] [place], [place] [phone] Eosinophil abs 0.07 0.00 - 0.50 K/cumm [facility] Comment:Testing performed by : [facility], [address] [place] [phone] Basophil abs 0.03 0.00 - 0.10 K/cumm [facility] Comment:Testing performed by : [facility], [address] [place] [phone] Neutrophil pct 54.5 % [facility] Comment: Interpretive Data Percent cell count reference ranges are not reported, since discordance with absolute values may lead to misinterpretation of CBC data. Current Interpretive Data was last revised on 2017. Testing performed by: [facility], [address] [place] [phone] Lymphocyte pct 35.5 % [facility] Comment: Interpretive Data Percent cell count reference ranges are not reported, since discordance with absolute values may lead to misinterpretation of CBC data. Current Interpretive Data was last revised on 2017. Testing performed by: [facility], [address] [place] [address] Monocyte pct 7.6 % [facility] Comment: Interpretive Data Percent cell count reference ranges are not reported, since discordance with absolute values may lead to misinterpretation of CBC data. Current Interpretive Data was last revised on 2017. Testing performed by: [facility], [address] [place] [phone] Eosinophil pct 1.8 % [facility] Comment: Interpretive Data Percent cell count reference ranges are not reported, since discordance with absolute values may lead to misinterpretation of CBC data. Current Interpretive Data was last revised on 2017. Testing performed by: [facility], [address] [place] [phone] Basophil pct 0.8 % [facility] Comment: Interpretive Data Percent cell count reference ranges are not reported, since discordance with absolute values may lead to misinterpretation of CBC data. Current Interpretive Data was last revised on 2017. Testing performed by: [facility], [address] [place] [phone] Blood 10/27/2024 11:4 2 AM CDT 10/27/2024 11:44 AM CDT us Lorene Prince MD LAB BLOOD ORDERABLES F inal Result Performing Organization Address City/[facility] [facility]ZIP Co de Phone Number [facility] [place] [address] * Thyroid Function Graham (10/27/2024 11:42 AM CDT) TSH 0.33 0.30 - 4.20 mcIUnit/mL Blood 10/27/2024 11:4 2 AM CDT 10/27/2024 11:46 AM CDT us Lorene Prince MD LAB BLOOD ORDERABLES F inal Result [facility] [place] [address] * (ABNORMAL) CBC with auto differential (10/27/2024 11:42 AM CDT) WBC 4.00 3.80 - 9.90 K/cumm Comment:Testing performed by : [facility], [address] [place] [address] Hgb 11.9 11.9 - 15.5 g/dL CERNER BJ Comment:Testing performed by : [facility], [address] [place] [address] Hct 36.7 35.6 - 45.5 % CERNER BJ Comment:Testing performed by : [facility], [address] [place], [place] [id number] Plt 170 150 - 400 K/cumm CERNER BJ Comment:Testing performed by : [facility], [address] [place] [address] MPV 8.6 6.8 - 10.4 fL CERNER BJ Comment:Testing performed by : [facility], [address] [place], [place] [phone] RBC 5.08 3.90 - 5.20 M/cumm CERNER BJ Comment:Testing performed by : [facility], [address] [place] [address] MCV 72.3(L) 81.3 - 96.4 fL CERNER BJ Comment:Testing performed by : [facility], [address] [place] [address] MCH 23.4(L) 27.1 - 33.3 pg CERNER BJ Comment:Testing performed by : [facility], [address] [place] [address] MCHC 32.3 32.3 - 35.7 g/dL CERNER BJ Comment:Testing performed by : [facility], [address] [place] [address] RDW CV 19.3(H) 11.1 - 14.9 % CERNER BJ Comment:Testing performed by : [facility], [address] [place] [address] NRBC abs 0.00 0.00 - 0.01 K/cumm CERNER BJ Comment:Testing performed by : [facility], [address] [place] [id number] Blood 10/27/2024 11:4 2 AM CDT 10/27/2024 11:44 AM CDT Lorene Prince MD LAB BLOOD ORDERABLES F inal Result Performing Organization Address City/[facility] Co de Phone Number [facility] [place] [address] * Vitamin D 25 hydroxy (10/27/2024 11:42 AM CDT) Vitamin D 25-OH 40 30 - 80 ng/mL Blood 10/27/2024 11:4 2 AM CDT 10/27/2024 11:46 AM CDT Lorene Prince MD LAB BLOOD ORDERABLES F inal Result Performing Organization Address [facility] de Phone Number [facility] [place] [address] * Lipid panel (10/27/2024 11:42 AM CDT) [...] revised on 2017. Triglycerides 117 <=149 mg/dL [facility] Comment: Interpretive Data Ages < [...] on 2017. HDL 56 >=40 mg/dL [facility] Comment: Interpretive Data Ages < [...] 2017. LDL, calculated 63 <=129 mg/dL [facility] Comment: Interpretive Data Ages < [...] on 2023. Non-HDL Cholesterol 84 mg/dL [facility] Comment: Interpretive Data Ages < [...] last revised on 2017. Chol/HDL ratio 3 [facility] Blood 10/27/2024 11:4 2 AM CDT 10/27/2024 11:46 AM CDT us Lorene Prince MD LAB BLOOD ORDERABLES F inal Result [facility] [place] [address] * (ABNORMAL) Comprehensive metabolic panel (10/27/2024 11:42 AM CDT) Sodium 138 135 - 145 mmol/L Potassium, pl 5.9(H) 3.3 - 4.9 mmol/L [facility] Comment:Hemolyzed; Potassium value may be falsely elevated by as much as 0.6-1.0 mmol/L. Suggest redraw and reanalysis. Chloride 106 97 - 110 mmol/L [facility] CO2 25 22 - 32 mmol/L [facility] Anion gap 7 2 - 15 mmol/L [facility] BUN 15 6 - 25 mg/dL [facility] Creatinine 1.11(H) 0.60 - 1.10 mg/dL [facility] Glucose 88 70 - 199 mg/dL [facility] Comment: Interpretive Data Fasting glucose >/= [...] 2022. Calcium 9.3 8.5 - 10.3 mg/dL [facility] Bilirubin, total 0.6 0.1 - 1.2 mg/dL [facility] Protein, pl 7.0 6.5 - 8.5 g/dL [facility] Albumin 3.8 3.5 - 5.0 g/dL [facility] Alk phos 66 40 - 130 Units/L [facility] ALT 18 7 - 45 Units/L [facility] AST See Comment 10 - 45 Units/L [facility] Comment:Credited; Hemolyzed Specimen Blood 10/27/2024 11:4 2 AM CDT 10/27/2024 11:46 AM CDT us Lroene Prince MD LAB BLOOD ORDERABLES F inal Result [facility] [place] [address] * CT Chest Abdomen Pelvis W Contrast [...] POCT ORDERABLES - DEVICE Final Result [facility] Department [place] [address] * XR Knee Right 3 View (10/23/2024 [...] compared to prior imaging studies performed at [facility] on 10/31/2019, and at [facility] on 09/19/2022 and 10/04/2023. There are scattered [...] compared to prior imaging studies performed at [facility] on 10/31/2019, [facility] on 09/19/2022 and 10/04/2023. There are [...] and children were not included. (Diabetes Care [id number], 2008). The eAG is not equivalent to a fasting glucose. 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 MF: JOVAN Report ID: [id number] Reading Location: [place] [address] Akhil Russo MD IM DXA PROCEDURES Final Re sult * High Risk HPV DNA Detection with Genotyping (Molecular component) (04/11/2023 1:41 PM PARACHUTE/COMBATANT DIVER OFFICER) HPV HR 16 Not Detected Not Detected [facility] Comment:Testing performed by : [facility], [address] [place]., [address] HPV HR 18 Not Detected Not Detected [facility] Comment:Testing performed by : [facility], [address] [place]., [address] HPV HR Non 16/18 Not Detected Not [...] this test have been verified by the [facility] laboratory. Correlate with separately reported cytology results, as applicable. Interpretive data last revised 22 Testing performed by: [facility], [address] [facility], [place]., [address] Endocervical 04/11/2023 1:41 PM PARACHUTE/COMBATANT DIVER OFFICER 04/12/2023 3:01 PM PARACHUTE/COMBATANT DIVER OFFICER us Akhil Russo MD LAB BODY FLUIDS AND STOOLS ORDERABLES Final Result Performing Organization Address City/State/[facility] Co mo Phone Number [facility] [address] [address] [place] [address] * CT Colonography Diagnostic W Contrast (07/22/2021 [...] CDT) Hep C Ab Nonreactive Nonreactive [facility] Comment:Antibodies to HCV no t detected. Does NOT exclude the possibility of recent exposure to HCV. Blood 01/03/2021 12:0 2 PM CDT 01/03/2021 12:16 PM CDT us Carmen Fish [facility] MICROBIOLOGY - GENER AL ORDERABLES Edited Result - Final [facility] [place] [address] from Last 3 Months or Most Recently Relevant to Health Maintenance Insurance MEDICARE [facility] MEDICARE ADVANTAGE [facility] MEDICARE ADVANTAGE [address] MEDICARE ADVANTAGE Advance Directives For more information, please contact: [phone] * Full Code (Latest Code Status on [...] 5:18 PM 02/21/2021 4:10 PM Care Teams Studio Technician Video Operator Relationship Specialty Start Date End Date Akhil Russo MD [address] [place] [address] PCP - General Family Medicine 11/29/21 Lorene Prince MD Medical Oncologist/Hematologis t Medical Oncology 01/31/21 Mili Mcleod NP [address] [place] [address] Nurse Practitioner Cardiovascular Disease 07/18/22 Guillermina Stokes MD [address] [place] [address] Referring Physician Endocrinology Diabetes & Metabolism 08/20/23
--- OUTSIDE RECORDS SUMMARY | 2024-12-18 11:27 | XMS_ITS | Encounter Summary ---
Author Organization [facility] Address [address] [place] [address] Phone Care Team Providers Care Inspector Machined Parts Name Role Phone Lorene Prince MD Unavailable [phone] Akhil Russo MD Primary Care Provider [phone] Mili Mcleod NP Unavailable Guillermina Stokes MD Unavailable [phone] Encounter Details Date Type Department Care Team [...] Recorded In the past 12 months has [employer], gas, oil, or water [employer] threatened to shut off services in your [...] answer 09/04/2023 How often do you attend [facility] or gnosticist services? Patient unable to answer 09/04/2023 Do [...] place to sleep or slept in a residential (including now)? Patient unable to answer 09/04/2023 [...] on file Legal Sex Female 8:31 AM DENTAL EQUIPMENT REPAIRER Gender Identity Female 12/08/2020 1:45 PM CDT [...] on filedocumented in this encounter Care Teams Inspector Machined Parts Relationship Specialty Start Date End Date Akhil Russo MD [address] [place] [address] PCP - General Family Medicine 11/29/21 Lorene Prince MD Medical Oncologist/Hematologis t Medical Oncology 01/31/21 Mili Mcleod NP [address] [place] [address] Nurse Practitioner Cardiovascular Disease 07/18/22 Guillermina Stokes MD [address] [facility] [address] [address] Referring Physician Endocrinology Diabetes & Metabolism 08/20/23 documented as of this encounter
--- OUTSIDE RECORDS SUMMARY | 2024-12-18 11:27 | XMS_ITS | Encounter Summary ---
Author Organization [facility] Healthcare Address [address] [place] [address] Care Team Providers Care Jury Consultant Name Role Phone SureshLorene MD Unavailable [phone] Vinod Bird MD Unavailable Akhil Russo MD Primary Care Provider [phone] Mili Mcleod NP Unavailable Guillermina Stokes MD Unavailable [phone] Encounter Details Date Type Department Care Team (Late st Contact Info) Description 12/01/2021 Telephone [facility] [address] [facility] [address] [place] [address] Akhil Russo MD [address] [facility] [address] [place] [address] Social History Tobacco Use Types [...] on file Legal Sex Female 8:31 AM MICROSOFT NET DEVELOPER Gender Identity Female 12/08/2020 1:45 PM CDT [...] C. difficile suspected 07/05/2023 07/05/2023 10:37 PM MICROSOFT NET DEVELOPER COVID: Suspected 08/22/2023 08/22/2023 08/22/2023 5:03 PM CDT C. difficile suspected 08/22/2023 08/22/202308/22 3:06 AM CDT C. difficile suspected 09/01/2023 09/02/202309/04 3:05 AM CDT Norovirus suspected 09/01/2023 09/02/2023 09/05/19 3:05 AM CDT documented as of this encounter Care Teams Jury Consultant Relationship Specialty Start Date End Date Akhil Russo MD [address] [place] [address] PCP - General Family Medicine 11/29/21 Lorene Prince MD Medical Oncologist/Hematologis t Medical Oncology 01/31/21 Vinod Bird MD Consulting Physician Cardiovascular Disease 03/23/21 Mili Mcleod NP [address] [place] [address] Nurse Practitioner Cardiovascular Disease 07/18/22 Guillermina Stokes MD [address] [address] Referring Physician Endocrinology Diabetes & Metabolism 08/20/23 documented as of this encounter
--- OUTSIDE RECORDS SUMMARY | 2024-12-18 11:27 | XMS_ITS | Encounter Summary ---
Author Organization [facility] Healthcare Address [address] [place] [address] Care Team Providers Care Loader Name Role Phone Unavailable Primary Care Provider Unavailabl e Reason for Visit * Diagnostic Imaging (Routine) - Closed Specialty Diagnoses / Procedures Referred By Contac t Referred To Contact Procedures Breast Imaging Screening Outside Reference Referral, Self Referral ID Status Reason Start Date Expiration Date Visits Re quested Visits Authorized [id number] Closed 10/05/2022 11/04/2023 1 1 Encounter Details Date Type Department Care Team (Late st Contact Info) Description 09/15/2011 Hospital Encounter [facility] [address] [place] [address] Social History Tobacco Use Types Packs/Day Years Used Date Smoking Tobacco: Never Passive Smoke Exposure: Past Smokeless Tobacco: Never Alcohol Use Standard Drinks/Week Comments Never 0 (1 standard drink = 0.6 oz pur e alcohol) [facility] Utilities Answer Date Recorded In the past 12 months has [employer], gas, oil, or water [employer] threatened to shut off services in your [...] answer 09/04/2023 How often do you attend [facility] or rastafari services? Patient unable [...] on file Legal Sex Female 8:31 AM CONSTRUCTION ACCOUNTANT Gender Identity Female 12/08/2020 1:45 PM CDT [...] and have not been reviewed by [facility] Radiology. There will be no report generated by a [facility] Radiologist. Narrative [facility]_MAMMO_[facility] - 10/05/2022 10:43 AM [...] C. difficile suspected 07/05/2023 07/05/2023 10:37 PM CONSTRUCTION ACCOUNTANT COVID: Suspected 08/22/2023 08/22/2023 08/22/2023 5:03 PM CDT C. difficile suspected 08/22/2023 08/22/202308/22 3:06 AM CDT C. difficile suspected 09/01/2023 09/02/202309/04 3:05 AM CDT Norovirus suspected 09/01/2023 09/02/2023 09/05/19 3:05 AM CDT documented as of this encounter
--- OUTSIDE RECORDS SUMMARY | 2024-12-18 11:27 | XMS_ITS | Encounter Summary ---
Author Organization [facility] Healthcare Address [address] [place] [address] Care Team Providers Care Medical Laboratory Assistant Name Role Phone Unavailable Primary Care Provider Unavailabl e Reason for Visit * Diagnostic Imaging (Routine) - Closed Specialty Diagnoses / Procedures Referred By Contac t Referred To Contact Procedures Breast Imaging Screening Outside Reference Referral, Self Referral ID Status Reason Start Date Expiration Date Visits Re quested Visits Authorized [id number] Closed 10/05/2022 11/04/2023 1 1 Encounter Details Date Type Department Care Team (Late st Contact Info) Description 01/27/2014 Hospital Encounter [facility] Radiology [facility] [address] [place] [address] Social History Tobacco Use Types Packs/Day Years Used Date Smoking Tobacco: Never Passive Smoke Exposure: Past Smokeless Tobacco: Never Alcohol Use Standard Drinks/Week Comments Never 0 (1 standard drink = 0.6 oz pur e alcohol) [facility] Utilities Answer Date Recorded In the past 12 months has [employer], gas, oil, or water [employer] threatened to shut off services in your [...] answer 09/04/2023 How often do you attend [facility] or nondenominational services? Patient unable to answer 09/04/2023 Do you belong to any clubs o r organizations such as jainism groups, unions, fraternal or athletic groups, or [...] on file Legal Sex Female 8:31 AM CUSTOMER ACCOUNT REPRESENTATIVE Gender Identity Female 12/08/2020 1:45 PM CDT [...] only and have not been reviewed by [facility] Radiology. There will be no report generated by a [facility] Radiologist. Narrative RAD_MAMMO_[facility] - 10/05/2022 10:41 [...] C. difficile suspected 07/05/2023 07/05/2023 10:37 PM CUSTOMER ACCOUNT REPRESENTATIVE COVID: Suspected 08/22/2023 08/22/2023 08/22/2023 5:03 PM CDT C. difficile suspected 08/22/2023 08/22/202308/22 3:06 AM CDT C. difficile suspected 09/01/2023 09/02/202309/04 3:05 AM CDT Norovirus suspected 09/01/2023 09/02/2023 09/05/19 3:05 AM CDT documented as of this encounter
--- OUTSIDE RECORDS SUMMARY | 2024-12-18 11:27 | XMS_ITS ---
Author Organization [facility] Address [address] [place] [address] Care Team Providers Care Oracle Software Engineer Name Role Phone Lorene Prince MD Unavailable [phone] Akhil Russo MD Primary Care Provider Mili Mcleod NP Unavailable Guillermina Stokes MD Unavailable [phone] Active Problems Problem Noted Date Diagnosed Date [...] resolve. Assessment & Plan (04/05/2022 12:32 AM RESAW CARRIAGE OPERATOR): - Pt c/o dehydration and lightheadedness on exam - CTH was unremarkable for any acute intracranial abnormalities. No orthostatis noted on exam - c/w LR @ 75 ml/hr Bacteriuria 04/05/2022 Assessment & Plan (04/05/2022 12:39 AM RESAW CARRIAGE OPERATOR): - UA was + for LE and trace Bacteria, given immunocompromised status, will start on Cefepime IV 2g q12h pending cultures - Taper coverage based on c&s Headache 04/05/2022 Assessment & Plan (04/05/2022 12:40 AM RESAW CARRIAGE OPERATOR): - Pt c/o intermittent headaches and lightheadedness on exam. Given hx of mets CTH was obtained which was unremarkable for any acute intracranial abnormalities. Seasonal allergies 04/05/2022 Assessment & Plan (04/05/2022 12:40 AM RESAW CARRIAGE OPERATOR): - c/w Flonase nasal spray MARAVILLA (dyspnea on exertion) 04/05/2022 Assessment & Plan (04/05/2022 12:48 AM RESAW CARRIAGE OPERATOR): - Pt c/o dyspnea on exertion , can likely be related to metastatic disease progression - EKG was unremarkable on admission while Trop and BNP were also WNL - TTE donw previously in 12/2020 was remarkable for LVEf of 54% with limited study - Plan to repeat TTE Diarrhea in adult patient 04/04/2022 Assessment & Plan (04/05/2022 12:37 AM RESAW CARRIAGE OPERATOR): - Pt presented with worsening NB , [...] 11/30/2021 Assessment & Plan (03/19/2024 10:38 AM RESAW CARRIAGE OPERATOR): A(n) yearly Medicare Annual Wellness Visit has [...] OK Assessment & Plan (07/08/2022 12:17 PM RESAW CARRIAGE OPERATOR): TSH 0.17 uIU/ml, normal T4 Thyroid dosing has been adjusted, awaiting repeat Assessment & Plan (04/05/2022 12:34 AM RESAW CARRIAGE OPERATOR): - c/w Synthroid 100 mcg po qam [...] zoloft Assessment & Plan (04/05/2022 12:37 AM RESAW CARRIAGE OPERATOR): - c/w Sertraline 25 mg po every [...] meningitis -Total spine MRI was ordered in [facility] and completed --> Posterior T12 Vertebral lesion [...] meningitis -Total spine MRI was ordered in [facility] and completed, read pending -Will start scheduled [...] 02/18/2021 Assessment & Plan (04/05/2022 12:34 AM RESAW CARRIAGE OPERATOR): - Pt c/o worsening SOB which can [...] dehydration Assessment & Plan (07/08/2022 12:18 PM RESAW CARRIAGE OPERATOR): Renal function decreased, GFR at 42 Creatinine 1.39 Advised on hydration Assessment & Plan (04/05/2022 12:34 AM RESAW CARRIAGE OPERATOR): - c/w Toprol XL 50 mg po [...] recurrence. Assessment & Plan (04/05/2022 12:31 AM RESAW CARRIAGE OPERATOR): - Pt was diagnosed with left renal [...] Treatment Medications Discontinue Reason Plan Provider Cycles [id number] [facility] [id number] Part 1 Arm A Nivolumab + Bempegaldesleukin + Axitinib 01/18/20 21 07/24/2022 [facility] (/ [id number]) Nivolumab/BMS -[id number] IVPB in 50 mLINV-[facility]_ [facility] (/ [id number]) NKTR-214 (BEMPEGALDESL EUKIN) IVPB in 50 mL () [facility] axitinib (/ [id number]) Progressive Disease Lorene Prince MD 24 of [...] 07/18/2023 Assessment & Plan (04/05/2022 12:39 AM RESAW CARRIAGE OPERATOR): - Pt has documented hx of PE, has been off AC for over 3 months Total perforation of left tympanic membrane 09/12/2021 02/10/2022 Overview (09/12/2021): Added automatically from request for surgery [id number] Left renal mass 01/03/2019 01/24/2019 Overview (01/03/2019): Added automatically from request for surgery [id number]
--- OUTSIDE RECORDS SUMMARY | 2024-12-18 11:27 | XMS_ITS | Encounter Summary ---
Author Organization [facility] Address [address] [place] [address] Phone Care Team Providers Care Chemistry Laboratory Technician Name Role Phone Lorene Prince MD Unavailable [phone] Akhil Russo MD Primary Care Provider [phone] Mili Mcleod NP Unavailable Guillermina Stokes MD Unavailable [phone] Encounter Details Date Type Department Care Team (Late st Contact Info) Description 12/18/2024 Orders Only [facility] Oncology [address] [facility] [address] [place] [address] Lorene Prince MD [address] [place] [address] Social History Tobacco Use Types Packs/Day Years Used Date Smoking Tobacco: Never Passive Smoke Exposure: Past Smokeless Tobacco: Never Alcohol Use Standard Drinks/Week Comments Never 0 (1 standard drink = 0.6 oz pur e alcohol) [facility] Utilities Answer Date Recorded In the past [...] How often do you attend chur or hinduism services? Patient unable to answer 09/04/2023 Do you belong to any clubs o r organizations such as gnosticist groups, unions, fraternal or athletic groups, or [...] on file Legal Sex Female 8:31 AM PHYSICS PROFESSOR Gender Identity Female 12/08/2020 1:45 PM CDT [...] on filedocumented in this encounter Care Teams Chemistry Laboratory Technician Relationship Specialty Start Date End Date Akhil Russo MD [address] [place] [address] PCP - General Family Medicine 11/29/21 Lorene Prince MD Medical Oncologist/Hematologis t Medical Oncology 01/31/21 Mili Mcleod NP [address] [place] [address] Nurse Practitioner Cardiovascular Disease 07/18/22 Guillermina Stokes MD [address] [address] Referring Physician Endocrinology Diabetes & Metabolism 08/20/23 documented as of this encounter
--- OUTSIDE RECORDS SUMMARY | 2024-12-18 11:27 | XMS_ITS | Encounter Summary ---
Author Organization [facility] Healthcare Address [address] [place] [address] Care Team Providers Care Stucco Mason Name Role Phone Fide Contreras MD Primary Care Provider Lorene Prince MD Unavailable [phone] Vinod Bird MD Unavailable Sandra Prieto Primary Care Provider [phone] Akhil Russo MD Primary Care Provider [phone] Mili Mcleod NP Unavailable Guillermina Stokes MD Unavailable Encounter Details Date Type Department Care Team (Late st Contact Info) Description 01/04/2021 Telephone [facility] Radiology [address] [place], [place] [id number] Lorene Prince MD [address] [place] [address] Social History Tobacco Use Types Packs/Day Years [...] on file Legal Sex Female 8:31 AM TIRE MOLD TESTER Gender Identity Female 12/08/2020 1:45 PM CDT [...] C. difficile suspected 07/05/2023 07/05/2023 10:37 PM TIRE MOLD TESTER COVID: Suspected 08/22/2023 08/22/2023 08/22/2023 5:03 PM CDT C. difficile suspected 08/22/2023 08/22/202308/22 3:06 AM CDT C. difficile suspected 09/01/2023 09/02/202309/04 3:05 AM CDT Norovirus suspected 09/01/2023 09/02/2023 09/05/19 3:05 AM CDT documented as of this encounter Care Teams Stucco Mason Relationship Specialty Start Date End Date Fide Contreras MD [address] [place] [address] PCP - General Family Medicine 01/01/19 11/15/21 Sandra Prieto PA [address] [place] [address] PCP - General Internal Medicine 11/16/21 11/28/21 Akhil Russo MD [address] [place] [address] PCP - General Family Medicine 11/29/21 Lorene Prince MD [address] [place] [address] Medical Oncologist/Hematologis t Medical Oncology 01/31/21 Vinod Bird MD [address] [place] [address] Consulting Physician Cardiovascular Disease 03/23/21 Mili Mcleod NP [address] [place] [address] Nurse Practitioner Cardiovascular Disease 07/18/22 Guillermina Stokes MD [address] [facility] [address] [address] Referring Physician Endocrinology Diabetes & Metabolism 08/20/23 documented as of this encounter
--- OUTSIDE RECORDS SUMMARY | 2024-12-18 11:27 | XMS_ITS | Encounter Summary ---
Author Organization [facility] Address [address] [place] [address] Phone Care Team Providers Care Hog Confinement System Manager Name Role Phone Lorene Prince MD Unavailable [phone] Akhil Russo MD Primary Care Provider [phone] Mili Mcleod NP Unavailable Guillermina Stokes MD Unavailable [phone] Encounter Details Date Type Department Care Team (Late st Contact Info) Description 12/18/2024 Orders Only [facility] Oncology [address] [facility] [address] [place] [address] Lorene Prince MD [address] [place] [address] Social History Tobacco Use Types Packs/Day Years Used Date Smoking Tobacco: Never Passive Smoke Exposure: Past Smokeless Tobacco: Never Alcohol Use Standard Drinks/Week Comments Never 0 (1 standard drink = 0.6 oz pur e alcohol) [facility] Utilities Answer Date Recorded In the past [...] How often do you attend chur or orthodoxy services? Patient unable to answer 09/04/2023 Do [...] place to sleep or slept in a group home (including now)? Patient unable to answer 09/04/2023 [...] on file Legal Sex Female 8:31 AM NUCLEAR UNIT OPERATOR Gender Identity Female 12/08/2020 1:45 PM CDT Sexual Orientation Straight 01/22/2019 10 :49 AM CDT documented as of this encounter Progress Notes * Nallely Montes RN - 12/18/2024 9:07 AM CDT Patient sent message that her sister is taking her to [place], [place] documented in this encounter Plan of Treatment Not on file documented as of this encounter Visit Diagnoses Not on filedocumented in this encounter Care Teams Hog Confinement System Manager Relationship Specialty Start Date End Date Akhil Russo MD [address] [place] [address] PCP - General Family Medicine 11/29/21 Lorene Prince MD Medical Oncologist/Hematologis t Medical Oncology 01/31/21 Mili Mcloed NP [address] [place] [address] Nurse Practitioner Cardiovascular Disease 07/18/22 Guillermina Stokes MD [address] [facility] [address] [place] [address] Referring Physician Endocrinology Diabetes & Metabolism 08/20/23 documented as of this encounter
[2024-12-18 12:34] LABS: Add Urine Microscopic? YES; Appearance Urine Clear (Clear); Glucose Urine UA Negative (Negative); Leukocyte Esterase Ur Negative LEU/UL (Negative); Nitrate Urine Negative (Negative); Specific Grav Ur 1.012 (1.001-1.035)
[2024-12-18] MEDS: DIPHENOXYLATE/ATROPINE (*CRX) 2.5 MG TABLET 2 TABLET PO (13:16)
--- NOTE | 2024-12-18 15:52 | PC.NURSE ---
Patient reporting nausea has returned and still having bile yellow diarrhea when toileting-will notify Ina
[2024-12-18] MEDS: ONDANSETRON INJ 4 MG/2 ML VIAL 8 MG IV PUSH (16:03)
== END 2024-12-18 18:02 | disposition home or self-care (01) ==
PROVIDERS: Emergency Provider Registered Nurse
DX: K52.1 Toxic gastroenteritis and colitis (principal); T45.1X5A Adverse effect of antineoplastic and immunosuppressive drugs, initial encounter; K52.9 Noninfective gastroenteritis and colitis, unspecified; E86.0 Dehydration; C64.9 Malignant neoplasm of unspecified kidney, except renal pelvis; C78.00 Secondary malignant neoplasm of unspecified lung; I10 Essential (primary) hypertension; J45.909 Unspecified asthma, uncomplicated; E55.9 Vitamin D deficiency, unspecified; E07.9 Disorder of thyroid, unspecified; Z90.49 Acquired absence of other specified parts of digestive tract; Z90.5 Acquired absence of kidney; Z79.899 Other long term (current) drug therapy
CPT/HCPCS: 36415; 74018; 80053; 81001; 83605; 83690; 85025; 85055; 85610; 85730; 93005; 96361; 96374; 96375; 99284; A9270; J1200; J2405; J2765; J7030

== ENCOUNTER 2024-12-20 01:16 | Observation (INO) | payer MEDICARE, SELFPAY ==
[2024-12-20] VITALS (26 sets, daily range): BP systolic 85–126; BP diastolic 53–82; PULSE 73–126; RESP 16–20; TEMP 36.1–37.1; O2SAT 95–100; BMI 26.1; BMI 26.2
--- NOTE | ~2024-12-20 | CT_ITS ---
EXAMINATION: CT abdomen pelvis w con DATE: 12/20/2024 03:08 INDICATION: Nausea and vomiting TECHNIQUE: Computed tomography (CT) of the abdomen and pelvis was performed with 100 mL Omnipaque-350 intravenous contrast. Automated exposure control and iterative reconstruction technique were employe d. The dose-length product was 746.21 mGy-cm. COMPARISON: 07/12/2024 FINDINGS: Lung bases are clear. Heart size normal. No pericardial or pleural effusion. Small sliding-type hiata l hernia. Common bile duct is dilated to 12 mm likely related to prior cholecystectomy with surgical clips the gallbladder fossa. Liver is normal with no intrahepatic biliary ductal dilation. Postoperat carolyn change of prior left nephrectomy and likely left adrenalectomy with multiple surgical clips at th e operative bed. Spleen, pancreas, right adrenal gland and kidney are normal. Bladder is normal. A fe w uterine fibroids, compatible with some peripheral calcification. Fluid throughout the normal colon consistent with nonspecific diarrhea. Small bowel and appendix are normal. No free intraperitoneal ga s or fluid. No pathologically enlarged abdominal or pelvic lymphadenopathy. Mild lumbar levocurvature with mild spondylosis. IMPRESSION: 1. Fluid throughout the colon consistent with nonspecific diarrhea. 2. Small sliding-type hiatal hernia. 3. Chronic mild dilation of the common bile duct without intrahepatic biliary ductal dilation likely related to prior cholecystectomy. Correlate with liver function tests. 4. Fibroid uterus. Reviewed, dictated and finalized at location A. IMPRESSION: 1. Fluid throughout the colon consistent with nonspecific diarrhea. 2. Small sliding-type hiatal hernia. 3. Chronic mild dilation of the common bile duct without intrahepatic biliary d uctal dilation likely related to prior cholecystectomy. Correlate with liver fu nction tests. 4. Fibroid uterus.
--- OUTSIDE RECORDS SUMMARY | 2024-12-20 01:19 | XMS_ITS | Encounter Summary ---
Author Organization [facility] Healthcare Address [address] [place] [address] Care Team Providers Care Engine Service Repairer Name Role Phone SureshLorene MD Unavailable [phone] Vinod Bird MD Unavailable Akhil Russo MD Primary Care Provider [phone] Mili Mcleod NP Unavailable Guillermina Stokes MD Unavailable Encounter Details Date Type Department Care Team (Late st Contact Info) Description 12/01/2021 Telephone [facility] [address] [facility] [address] [place] [address] Akhil Russo MD [address] [facility] [address] [place] [address] Social History Tobacco Use Types [...] on file Legal Sex Female 8:31 AM HAM SMOKER Gender Identity Female 12/08/2020 1:45 PM CDT [...] C. difficile suspected 07/05/2023 07/05/2023 10:37 PM HAM SMOKER COVID: Suspected 08/22/2023 08/22/2023 08/22/2023 5:03 PM CDT C. difficile suspected 08/22/2023 08/22/202308/22 3:06 AM CDT C. difficile suspected 09/01/2023 09/02/202309/04 3:05 AM CDT Norovirus suspected 09/01/2023 09/02/2023 09/05/19 3:05 AM CDT documented as of this encounter Care Teams Engine Service Repairer Relationship Specialty Start Date End Date Akhil Russo MD [address] [place] [address] PCP - General Family Medicine 11/29/21 Lorene Prince MD Medical Oncologist/Hematologis t Medical Oncology 01/31/21 Vinod Bird MD Consulting Physician Cardiovascular Disease 03/23/21 Mili Mcleod NP [address] [place] [address] Nurse Practitioner Cardiovascular Disease 07/18/22 Guillermina Stokes MD [address] [address] Referring Physician Endocrinology Diabetes & Metabolism 08/20/23 documented as of this encounter
--- OUTSIDE RECORDS SUMMARY | 2024-12-20 01:19 | XMS_ITS | Clinical Summary ---
Author Organization [facility] Address [address] [place] [address] Care Team Providers Care Reception Specialist Name Role Phone Lorene Prince MD Unavailable [phone] Akhil Russo MD Primary Care Provider [phone] Mili Mcleod NP Unavailable Guillermina Stokes MD Unavailable [phone] Allergies Active Allergy Reactions Criticality Noted Date Comments Nicholls And Derivatives Diarrhea Low 01/09/2019 Codeine Hives [...] resolve. Assessment & Plan (04/05/2022 12:32 AM CANDY MIXER): - Pt c/o dehydration and lightheadedness on exam - CTH was unremarkable for any acute intracranial abnormalities. No orthostatis noted on exam - c/w LR @ 75 ml/hr Bacteriuria 04/05/2022 Assessment & Plan (04/05/2022 12:39 AM CANDY MIXER): - UA was + for LE and trace Bacteria, given immunocompromised status, will start on Cefepime IV 2g q12h pending cultures - Taper coverage based on c&s Headache 04/05/2022 Assessment & Plan (04/05/2022 12:40 AM CANDY MIXER): - Pt c/o intermittent headaches and lightheadedness on exam. Given hx of mets CTH was obtained which was unremarkable for any acute intracranial abnormalities. Seasonal allergies 04/05/2022 Assessment & Plan (04/05/2022 12:40 AM CANDY MIXER): - c/w Flonase nasal spray MARAVILLA (dyspnea on exertion) 04/05/2022 Assessment & Plan (04/05/2022 12:48 AM CANDY MIXER): - Pt c/o dyspnea on exertion , can likely be related to metastatic disease progression - EKG was unremarkable on admission while Trop and BNP were also WNL - TTE donw previously in 12/2020 was remarkable for LVEf of 54% with limited study - Plan to repeat TTE Diarrhea in adult patient 04/04/2022 Assessment & Plan (04/05/2022 12:37 AM CANDY MIXER): - Pt presented with worsening NB , [...] 11/30/2021 Assessment & Plan (03/19/2024 10:38 AM CANDY MIXER): A(n) yearly Medicare Annual Wellness Visit has [...] OK Assessment & Plan (07/08/2022 12:17 PM CANDY MIXER): TSH 0.17 uIU/ml, normal T4 Thyroid dosing has been adjusted, awaiting repeat Assessment & Plan (04/05/2022 12:34 AM CANDY MIXER): - c/w Synthroid 100 mcg po qam [...] zoloft Assessment & Plan (04/05/2022 12:37 AM CANDY MIXER): - c/w Sertraline 25 mg po every [...] meningitis -Total spine MRI was ordered in [facility] and completed --> Posterior T12 Vertebral lesion [...] meningitis -Total spine MRI was ordered in [facility] and completed, read pending -Will start scheduled [...] 02/18/2021 Assessment & Plan (04/05/2022 12:34 AM CANDY MIXER): - Pt c/o worsening SOB which can [...] dehydration Assessment & Plan (07/08/2022 12:18 PM CANDY MIXER): Renal function decreased, GFR at 42 Creatinine 1.39 Advised on hydration Assessment & Plan (04/05/2022 12:34 AM CANDY MIXER): - c/w Toprol XL 50 mg po [...] recurrence. Assessment & Plan (04/05/2022 12:31 AM CANDY MIXER): - Pt was diagnosed with left renal [...] 07/18/2023 Assessment & Plan (04/05/2022 12:39 AM CANDY MIXER): - Pt has documented hx of PE, has been off AC for over 3 months Total perforation of left tympanic membrane 09/12/2021 02/10/2022 Overview (09/12/2021): Added automatically from request for surgery [id number] Left renal mass 01/03/2019 01/24/2019 Overview (01/03/2019): Added automatically from request for surgery [id number] Encounters Date Type Department Care Team Description 12/19/2024 Telephone [facility] Oncology [address] [place] [phone] Lorene Prince MD 12/18/2024 Orders Only [facility] Oncology [address] [place] [phone] Lorene Prince MD 12/18/2024 Telephone [facility] Oncology [address] [place] [phone] Lorene Prince MD 12/18/2024 Orders Only [facility] Oncology [address] [place] [phone] Lorene Prince MD 12/08/2024 11:15 AM CDT Office Visit [facility] Oncology [address] [place] [phone] Lorene Prince MD Malignant neoplasm of left kidney (CMS/HCC) (HCC) (Primary Dx); Secondary malignant neoplasm of left lung (HCC); Malignant neoplasm of left kidney (HCC) 12/08/2024 10:15 AM CDT Lab [facility] Oncology Lab [facility] Floor 5 [place] [address] Malignant neoplasm of left kidney (CMS/HCC) (HCC) 12/08/2024 10:00 AM CDT Lab [facility] - Lab Collection [facility] Floor 5 [place] [address] Malignant neoplasm of left kidney (CMS/HCC) (HCC) 11/26/2024 9:40 AM CDT Office Visit [facility] Orthopaedic Surgery [address] [place] [address] Govind Yee MD Trigger finger of left thumb (Primary Dx); Arthritis of carpometacarpal (CMC) joint of right thumb 11/14/2024 1:15 PM CDT Office Visit [facility] Nephrology [address] 5th [place] [address] [place] [address] Dagoberto Dietrich MD Stage 3a chronic kidney disease (HCC) (Primary Dx); Persistent proteinuria; Malignant neoplasm of left kidney (CMS/HCC) (HCC); Primary hypertension; Hyperkalemia 11/11/2024 9:30 AM CDT Office Visit [facility] Cardiology [address] 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; MARAVILLA (dyspnea on exertion); History of pulmonary embolism; Hypothyroidism due to medication; Malignant neoplasm of left kidney (CMS/HCC) (HCC); Diarrhea, unspecified type; Stage 3a chronic kidney disease (HCC); Secondary malignant neoplasm of left lung (HCC) 10/27/2024 1:45 PM CDT Lab [facility] [place] - Lab Collection [facility] Floor [address] [place] [address] Malignant neoplasm of left kidney (HCC); Secondary malignant neoplasm of left lung (HCC) 10/27/2024 1:00 PM CDT Office Visit [facility] Oncology [facility] Floor [address] [place] [address] Lupis Friend NP Malignant neoplasm of left kidney (CMS/HCC) (HCC) (Primary Dx); Secondary malignant neoplasm of left lung (HCC); Malignant neoplasm of left kidney (HCC) 10/27/2024 12:00 PM CDT Lab [facility] Oncology Lab [address] [facility] Floor [address] [place] [address] Malignant neoplasm of left kidney (CMS/HCC) (HCC) 10/27/2024 11:45 AM CDT Clinical Support [facility] - Lab Collection [address] [facility] Floor [address] [place] [address] Malignant neoplasm of left kidney (CMS/HCC) (HCC) 10/27/2024 9:53 AM CDT - 10/27/2024 11:59 PM CDT Hospital Encounter [facility] Radiology [facility] ([facility]) [address] [place] [phone] Lorene Prince MD Malignant neoplasm of left kidney (CMS/HCC) (HCC) Discharge Disposition: Discharge to home or self care 10/27/2024 Orders Only [facility] Oncology [address] [facility] Floor [address] [place] [address] Lupis Friend NP Malignant neoplasm of left kidney (HCC) (Primary Dx); Secondary malignant neoplasm of left lung (HCC) 10/23/2024 7:40 AM CDT - 10/23/2024 11:59 PM CDT Hospital Encounter [facility] Radiology at [facility] [address] [place] [address] Right knee pain, unspecified chronicity Discharge Disposition: Discharge to home or self care 10/23/2024 7:40 AM CDT Office Visit [facility] Orthopaedic Surgery [address] [facility] 1st Floor [address] [place] [address] Ezekiel Holbrook MD Right knee pain, unspecified chronicity; Primary osteoarthritis of right knee 10/22/2024 Telephone [facility] [employer] Care Organization [address] [place] [phone] Jennifer Rodas MA Chart Review (Med adherence ) 10/06/2024 Orders Only [facility] Medical [facility] Primary Care at [address] [phone] Akhil Russo MD 10/03/2024 Telephone [facility] Primary Care at [address] [phone] Akhil Russo MD Medical Question/Miscellaneous 09/25/2024 11:45 AM CDT Office Visit [facility] Primary Care at [address] [phone] Akhil Russo MD 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 Breast Imaging [facility] ([facility]) [address] [place] [address] Screening mammogram, encounter for Discharge Disposition: Discharge to home or self care 09/20/2024 Results Follow-Up [facility] Primary Care at [address] [phone] Akhil Russo MD Measles IgG antibody Blood, CBC with auto differential, Comprehensive metabolic panel, Additional followed-up results: 6 from Last 3 Months Immunizations Immunization Administration [...] (HCC) 2019 COPD (chronic obstructive pulmonary disease) Motion sickness [...] 1 Algene Clotting disorder Father's Brother 2 [place] Hearing loss Maternal Grandmother Louise Agarwal Heart [...] Neg Hx Relation Name Status Comments Father Dalia Father's Brother 1 Algene Father's Brother 2 [...] drink = 0.6 oz pur e alcohol) [facility] Utilities Answer Date Recorded In [...] answer 09/04/2023 How often do you attend [facility] sa[facility] or anglican services? Patient unable to answer 09/04/2023 Do you belong to any clubs o r organizations such as rastafari groups, unions, fraternal or athletic groups, or [...] on file Legal Sex Female 8:31 AM CANDY MIXER Gender Identity Female 12/08/2020 1:45 PM CDT [...] Additional history exists Hemoglobin A1C 03/19/2025 09/16/2024, 08/2023, 08/20/2023, Additional history exists Well Visit 65+ 03/19/2025 03/19/2024, 11/30/2021 Osteoporosis Screening-Bone Density Scan 07/25/2025 07/26/2023 Depression Screening 09/16/2025 09/16/2024, 03/19/2024, 09/11/2023, Additional history exists Breast Cancer Screening-Mammogram 09/23/2025 09/23/2024, 10/04/2023, 09/19/2022 Lipid Panel 12/08/2025 12/08/2024, 10/06, 09/16/2024, Additional history exists eGFR 12/08/2025 12/08/2024, 10/06, 09/16/2024, Additional history exists Colon Cancer Screening-Colonoscopy [...] Malignant neoplasm of left kidney (CMS/HCC) (HCC) HI ARTHROCENTESIS ASPIR&/INJ SMALL JT/BURSA W/O US Routine 11/26/2024 9:40 AM CDT Arthritis of carpometacarpal (CMC) joint of right thumb HI INJECTION 1 TENDON SHEATH/LIGAMENT APONEUROSIS Routine 11/26/2024 [...] 07/26/2023 8:08 AM CDT Screening for osteoporosis snf (current) use of immunomodulator HIGH RISK HPV DNA DETECTION WITH GENOTYPING Routine 04/11/2023 1:[address] VIRTUAL COLONOSCOPY DIAGNOSTIC W CONTRAST IP [...] last revised 2018. Creatinine Ur 145.7 mg/dL [facility] Comment: Interpretive Data No reference range established. Current interpretive data was last revised 2018. Protein/creatinin e ratio 111.2 0.0 - 180.0 mg/g CR [facility] Urine 12/08/2024 10:1 0 AM CDT 12/08/2024 10:23 AM CDT [facility] LAB URINE ORDERABLES Final Result Performing Organization Address City/[facility] Co de Phone Number [facility] Department [place] [address] * (ABNORMAL) eGFR (12/08/2024 10:00 AM CDT) [...] of Race in Diagnosing Kidney Disease, JASN 202). The CKD-EPI equation should not be used for patients with unstable renal function and has not been validated in children and those over 70. Current interpretive data was last reviewed 2021. Blood 12/08/2024 10:0 0 AM CDT 12/08/2024 10:10 AM CDT [facility] Vasile [place] SENIOR LEAD PROJECT MANAGER LAB BLOOD ORDERABLES Final Result [facility] One [facility] Department [place] [address] * Differential, auto (12/08/2024 10:00 AM CDT) Neutrophil abs 3.73 1.50 - 6.50 K/cumm Comment:Testing performed by : [facility]e [facility], [address] [place] [phone] Lymphocyte abs 2.00 0.80 - 3.30 K/cumm [facility] Comment:Testing performed by : [facility], [address] [place] [phone] Monocyte abs 0.55 0.20 - 0.80 K/cumm C[facility]ER [facility] Comment:Testing performed by : [facility], [address] [place] [phone] Eosinophil abs 0.08 0.00 - 0.50 K/cumm [facility] Comment:Testing performed by : [facility], [address] [place] [phone] Basophil abs 0.06 0.00 - 0.10 K/cumm [facility] Comment:Testing performed by : [facility], [address] [place] [phone] Neutrophil pct 58.1 % [facility] Comment: Interpretive Data Percent cell count reference ranges are not reported, since discordance with absolute values may lead to misinterpretation of CBC data. Current Interpretive Data was last revised on 2017. Testing performed by: [facility], [address] [place] [phone] Lymphocyte pct 31.2 % [facility] Comment: Interpretive Data Percent cell count reference ranges are not reported, since discordance with absolute values may lead to misinterpretation of CBC data. Current Interpretive Data was last revised on 2017. Testing performed by: [facility], [address] [place] [phone] Monocyte pct 8.5 % [facility] Comment: Interpretive Data Percent cell count reference ranges are not reported, since discordance with absolute values may lead to misinterpretation of CBC data. Current Interpretive Data was last revised on 2017. Testing performed by: [facility], [address] [place] [phone] Eosinophil pct 1.2 % [facility] Comment: Interpretive Data Percent cell count reference ranges are not reported, since discordance with absolute values may lead to misinterpretation of CBC data. Current Interpretive Data was last revised on 2017. Testing performed by: [facility], [address] [place] [phone] Basophil pct 1.0 % [facility] Comment: Interpretive Data Percent cell count reference ranges are not reported, since discordance with absolute values may lead to misinterpretation of CBC data. Current Interpretive Data was last revised on 2017. Testing performed by: [facility], [address] [place] [phone] Blood 12/08/2024 10:0 0 AM CDT 12/08/2024 10:08 AM CDT [facility] LAB BLOOD ORDERABLES Final Result [facility] Department [place] [address] * (ABNORMAL) Thyroid Function Bryant (12/08/2024 10:00 AM CDT) Pathologist [facility] TSH 0.27(L) 0.30 - 4.20 mcIUnit/mL Blood 12/08/2024 10:0 0 AM CDT 12/08/2024 10:10 AM CDT [facility] SENIOR LEAD PROJECT MANAGER LAB BLOOD ORDERABLES Final Result [facility] Department [place] [address] * (ABNORMAL) CBC with auto differential (12/08/2024 10:00 AM CDT) WBC 6.43 3.80 - 9.90 K/cumm Comment:Testing performed by : [facility], [address] [place], [place] [phone] Hgb 12.7 11.9 - 15.5 g/dL [facility] Comment:Testing performed by : [facility], [address] [place], [place] [phone] Hct 39.4 35.6 - 45.5 % [facility] Comment:Testing performed by : [facility], [address] [place], [place] [phone] Plt 204 150 - 400 K/cumm [facility] Comment:Testing performed by : [facility], [address] [place], [place] [phone] MPV 8.9 6.8 - 10.4 fL [facility] Comment:Testing performed by : [facility], [address] [place], [place] [phone] RBC 5.41(H) 3.90 - 5.20 M/cumm [facility] Comment:Testing performed by : [facility], [address] [place] [address] MCV 72.8(L) 81.3 - 96.4 fL [facility] Comment:Testing performed by : [facility], [address] [place], [place] [phone] MCH 23.5(L) 27.1 - 33.3 pg [facility] Comment:Testing performed by : [facility], [address] [place] [address] MCHC 32.4 32.3 - 35.7 g/dL [facility] Comment:Testing performed by : [facility], [address] [place] [address] RDW CV 20.2(H) 11.1 - 14.9 % [facility] Comment:Testing performed by : [facility], [address] [place] [address] NRBC abs 0.00 0.00 - 0.01 K/cumm [facility] Comment:Testing performed by : [facility], [address] [place] [phone] Blood 12/08/2024 10:0 0 AM CDT 12/08/2024 10:08 AM CDT [facility] SENIOR LEAD PROJECT MANAGER LAB BLOOD ORDERABLES Final Result Performing Organization Address [facility] Co de Phone Number [facility] [place] [address] * Vitamin D 25 hydroxy (12/08/2024 10:00 AM CDT) Pathologist [facility] Vitamin D 25-OH 44 30 - 80 ng/mL Blood 12/08/2024 10:0 0 AM CDT 12/08/2024 10:10 AM CDT [facility] LAB BLOOD ORDERABLES Final Result Performing Organization Address [facility] [place] [address] * (ABNORMAL) T4, free (12/08/2024 10:00 AM CDT) Pathologist [facility] Free T4 1.79(H) 0.90 - 1.70 ng/dL Blood 12/08/2024 10:0 0 AM CDT 12/08/2024 10:10 AM CDT Narrative [facility] - 12/08/2024 11:11 AM CDT This test was reflexed from a TSH result. [facility] SENIOR LEAD PROJECT MANAGER LAB BLOOD ORDERABLES Final Result Performing Organization Address [facility] [place] [address] * Lipid panel (12/08/2024 10:00 AM CDT) [facility] Cholesterol 154 30 - 199 mg/dL Comment: [...] revised on 2017. Triglycerides 104 <=149 mg/dL [facility] Comment: Interpretive Data Ages < [...] revised on 2017. HDL 65 >=40 mg/dL [facility] Comment: Interpretive Data Ages < [...] on 2017. LDL, calculated 70 <=129 mg/dL [facility] Comment: Interpretive Data Ages < [...] revised on 2023. Non-HDL Cholesterol 89 mg/dL [facility] Comment: Interpretive Data Ages < [...] last revised on 2017. Chol/HDL ratio 2 [facility] Blood 12/08/2024 10:0 0 AM CDT 12/08/2024 10:10 AM CDT us Lupis Friend NP LAB BLOOD ORDERABLES Final Result [facility] Department [place] [address] * (ABNORMAL) Comprehensive metabolic panel (12/08/2024 10:00 AM CDT) Sodium 142 135 - 145 mmol/L Potassium, pl 4.1 3.3 - 4.9 mmol/L [facility] Chloride 105 97 - 110 mmol/L [facility] CO2 27 22 - 32 mmol/L [facility] Anion gap 10 2 - 15 mmol/L [facility] BUN 18 6 - 25 mg/dL [facility] Creatinine 1.16(H) 0.60 - 1.10 mg/dL [facility] Glucose 100 70 - 199 mg/dL [facility] Comment: Interpretive Data Fasting glucose [...] 2022. Calcium 9.6 8.5 - 10.3 mg/dL [facility] Bilirubin, total 0.6 0.1 - 1.2 mg/dL [facility] Protein, pl 7.3 6.5 - 8.5 g/dL [facility] Albumin 4.0 3.5 - 5.0 g/dL [facility] Alk phos 72 40 - 130 Units/L [facility] ALT 15 7 - 45 Units/L [facility] AST 28 10 - 45 Units/L [facility] Blood 12/08/2024 10:0 0 AM CDT 12/08/2024 10:10 AM CDT Lupis Friend NP LAB BLOOD ORDERABLES Final Result [facility] [place] [address] * HI INJECTION 1 TENDON SHEATH/LIGAMENT APONEUROSIS (11/26/2024 9:40 [...] IN CLINIC/BEDSIDE ORDERABL ES Final Result * HI ARTHROCENTESIS ASPIR&/INJ SMALL JT/BURSA W/O US (11/26/2024 [...] Potassium, whole blood (10/27/2024 1:23 PM CDT) [facility] Potassium, bld 4.3 3.3 - 4.9 mmol/L Blood 10/27/2024 1:23 PM CDT 10/27/2024 1:41 PM CDT Result [facility] Lupis Friend NP LAB BLOOD ORDERABLES Final Result Performing Organization Address [facility] de Phone Number [facility] [place] [address] * AST (10/27/2024 1:23 PM CDT) [facility] AST 30 10 - 45 Units/L Blood 10/27/2024 1:23 PM CDT 10/27/2024 1:32 PM CDT Result [facility] LAB BLOOD ORDERABLES Final Result Performing Organization Address [facility] Phone Number [facility] [place] [address] * Protein / creatinine ratio, urine, random (10/27/2024 11:57 AM CDT) [facility] Protein, ur, quant 16.0 mg/dL Comment: Interpretive Data No reference range established. Current interpretive data was last revised 2018. Creatinine Ur 157.0 mg/dL [facility] Comment: Interpretive Data No reference range established. Current interpretive data was last revised 2018. Protein/creatinin e ratio 101.9 0.0 - 180.0 mg/g CR [facility] Urine 10/27/2024 11:5 7 AM CDT 10/27/2024 12:20 PM CDT us Lorene Prince MD LAB URINE ORDERABLES F inal Result Performing Organization Address [facility] Co de Phone Number [facility] [place] [address] * (ABNORMAL) eGFR (10/27/2024 11:42 AM CDT) [...] ORDERABLES F inal Result Performing Organization Address [facility] Co de Phone Number [facility] Department [place] [address] * Differential, auto (10/27/2024 11:42 AM CDT) Neutrophil abs 2.18 1.50 - 6.50 K/cumm Comment:Testing performed by : [facility], [address] [place] [phone] Lymphocyte abs 1.42 0.80 - 3.30 K/cumm [facility] Comment:Testing performed by : [facility], [address] [place], [place] [phone] Monocyte abs 0.30 0.20 - 0.80 K/cumm [facility] Comment:Testing performed by : [facility], [address] [place], [place] [id number] Eosinophil abs 0.07 0.00 - 0.50 K/cumm [facility] Comment:Testing performed by : [facility], [address] [place], [place] [id number] Basophil abs 0.03 0.00 - 0.10 K/cumm [facility] Comment:Testing performed by : [facility], [address] [place], [place] [id number] Neutrophil pct 54.5 % [facility] Comment: Interpretive Data Percent cell count reference ranges are not reported, since discordance with absolute values may lead to misinterpretation of CBC data. Current Interpretive Data was last revised on 2017. Testing performed by: [facility], [address] [place], [place] [id number] Lymphocyte pct 35.5 % [facility] Comment: Interpretive Data Percent cell count reference ranges are not reported, since discordance with absolute values may lead to misinterpretation of CBC data. Current Interpretive Data was last revised on 2017. Testing performed by: [facility], [address] [place], [place] [id number] Monocyte pct 7.6 % [facility] Comment: Interpretive Data Percent cell count reference ranges are not reported, since discordance with absolute values may lead to misinterpretation of CBC data. Current Interpretive Data was last revised on 2017. Testing performed by: [facility], [address] [place], [place] [id number] Eosinophil pct 1.8 % [facility] Comment: Interpretive Data Percent cell count reference ranges are not reported, since discordance with absolute values may lead to misinterpretation of CBC data. Current Interpretive Data was last revised on 2017. Testing performed by: [facility], [address] [place] [phone] Basophil pct 0.8 % [facility] Comment: Interpretive Data Percent cell count reference ranges are not reported, since discordance with absolute values may lead to misinterpretation of CBC data. Current Interpretive Data was last revised on 2017. Testing performed by: [facility], [address] [place] [phone] Blood 10/27/2024 11:4 2 AM CDT 10/27/2024 11:44 AM CDT Lorene Prince MD LAB BLOOD ORDERABLES F inal Result Performing Organization Address [facility] Co de Phone Number [facility] [place] [address] * Thyroid Function Bryant (10/27/2024 11:42 AM CDT) TSH 0.33 0.30 - 4.20 mcIUnit/mL Blood 10/27/2024 11:4 2 AM CDT 10/27/2024 11:46 AM CDT Lorene Prince MD LAB BLOOD ORDERABLES F inal Result Performing Organization Address City/[facility] Co de Phone Number [facility] Department [place] [address] * (ABNORMAL) CBC with auto differential (10/27/2024 11:42 AM CDT) WBC 4.00 3.80 - 9.90 K/cumm Comment:Testing performed by : [facility], [address] [place] [phone] Hgb 11.9 11.9 - 15.5 g/dL [facility] Comment:Testing performed by : [facility], [address] [place], [place] [id number] Hct 36.7 35.6 - 45.5 % [facility] Comment:Testing performed by : [facility], [address] [place], [place] [id number] Plt 170 150 - 400 K/cumm [facility] Comment:Testing performed by : [facility], [address] [place], [place] [id number] MPV 8.6 6.8 - 10.4 fL [facility] Comment:Testing performed by : [facility], [address] [place], [place] [phone] RBC 5.08 3.90 - 5.20 M/cumm [facility] Comment:Testing performed by : [facility], [address] [place], [place] [id number] MCV 72.3(L) 81.3 - 96.4 fL [facility] Comment:Testing performed by : [facility], [address] [place], [place] [id number] MCH 23.4(L) 27.1 - 33.3 pg [facility] Comment:Testing performed by : [facility], [address] [place] [address] MCHC 32.3 32.3 - 35.7 g/dL [facility] Comment:Testing performed by : [facility], [address] [place] [address] RDW CV 19.3(H) 11.1 - 14.9 % [facility] Comment:Testing performed by : [facility], [address] [place] [address] NRBC abs 0.00 0.00 - 0.01 K/cumm [facility] Comment:Testing performed by : [facility], [address] [place], [place] [phone] Blood 10/27/2024 11:4 2 AM CDT 10/27/2024 11:44 AM CDT us Lorene Prince MD LAB BLOOD ORDERABLES F inal Result Performing Organization Address [facility] Co de Phone Number [facility] [place] [address] * Vitamin D 25 hydroxy (10/27/2024 11:42 AM CDT) Vitamin D 25-OH 40 30 - 80 ng/mL Blood 10/27/2024 11:4 2 AM CDT 10/27/2024 11:46 AM CDT Lorene Prince MD LAB BLOOD ORDERABLES F inal Result Performing Organization Address [facility] Co de Phone Number [facility] [place] [address] * Lipid panel (10/27/2024 11:42 AM CDT) [...] revised on 2017. Triglycerides 117 <=149 mg/dL [facility] Comment: Interpretive Data Ages < [...] on 2017. HDL 56 >=40 mg/dL [facility] Comment: Interpretive Data Ages < or [...] 2017. LDL, calculated 63 <=129 mg/dL [facility] Comment: Interpretive Data Ages < or [...] revised on 2023. Non-HDL Cholesterol 84 mg/dL [facility] Comment: Interpretive Data Ages < or [...] last revised on 2017. Chol/HDL ratio 3 [facility] Blood 10/27/2024 11:4 2 AM CDT 10/27/2024 11:46 AM CDT Lorene Prince MD LAB BLOOD ORDERABLES F inal Result [facility] Department [place] [address] * (ABNORMAL) Comprehensive metabolic panel (10/27/2024 11:42 AM CDT) Sodium 138 135 - 145 mmol/L Potassium, pl 5.9(H) 3.3 - 4.9 mmol/L [facility] Comment:Hemolyzed; Potassium value may be falsely elevated by as much as 0.6-1.0 mmol/L. Suggest redraw and reanalysis. Chloride 106 97 - 110 mmol/L [facility] CO2 25 22 - 32 mmol/L [facility] Anion gap 7 2 - 15 mmol/L [facility] BUN 15 6 - 25 mg/dL [facility] Creatinine 1.11(H) 0.60 - 1.10 mg/dL [facility] Glucose 88 70 - 199 mg/dL [facility] Comment: Interpretive Data Fasting glucose [...] 2022. Calcium 9.3 8.5 - 10.3 mg/dL [facility] Bilirubin, total 0.6 0.1 - 1.2 mg/dL [facility] Protein, pl 7.0 6.5 - 8.5 g/dL [facility] Albumin 3.8 3.5 - 5.0 g/dL [facility] Alk phos 66 40 - 130 Units/L [facility] ALT 18 7 - 45 Units/L [facility] AST See Comment 10 - 45 Units/L [facility] Comment:Credited; Hemolyzed Specimen Blood 10/27/2024 11:4 2 AM CDT 10/27/2024 11:46 AM CDT us Lorene Prince MD LAB BLOOD ORDERABLES F inal Result [facility] [place] [address] * CT Chest Abdomen Pelvis W Contrast [...] POCT ORDERABLES - DEVICE Final Result [facility] Department [place] [address] * XR Knee Right 3 View (10/23/2024 [...] compared to prior imaging studies performed at [facility] on 10/31/2019, and at [facility] on 09/19/2022 and 10/04/2023. There are [...] compared to prior imaging studies performed at [facility]. [facility] on 10/31/2019, [facility] on 09/19/2022 and 10/04/2023. There are scattered areas of fibroglandular density. There is no suspicious abnormality in either breast. Impression: There is no mammographic evidence of malignancy. Annual screening mammography is recommended. OVERALL FINAL ASSESSMENT: BI-RADS CATEGORY 1: Negative. Self Screening Mammogram IMG MAMMO PROCEDURES Fi [...] and children were not included. (Diabetes Care 31:6298-1661, 2008). The eAG is not equivalent to a fasting glucose. 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 MF: JOVAN Report ID: [id number] Reading Location: [place] [address] Akhil Russo MD IMG DXA PROCEDURES Final Re sult * High Risk HPV DNA Detection with Genotyping (Molecular component) (04/11/2023 1:41 PM CANDY MIXER) HPV HR 16 Not Detected Not Detected [facility] Comment:Testing performed by : [facility], [address] [place]., [address] HPV HR 18 Not Detected Not Detected [facility] Comment:Testing performed by : [facility], [address] [place]., [address] HPV HR Non 16/18 Not Detected Not Detected [facility] Comment: Interpretive Data Nucleic acid amplification for [...] this test have been verified by the [facility] Molecular Infectious Disease laboratory. Correlate with separately reported cytology results, as applicable. Interpretive data last revised 22 Testing performed by: [facility], [address] [place] [address]., [address] Endocervical 04/11/2023 1:41 PM CANDY MIXER 04/12/2023 3:01 PM CANDY MIXER us Akhil Russo MD LAB BODY FLUIDS AND STOOLS ORDERABLES Final Result [facility] [address] Department [place] [address] * CT Colonography Diagnostic W Contrast (07/22/2021 [...] 01/03/2021 12:16 PM CDT us Carmen Fish SENIOR LEAD PROJECT MANAGER LAB MICROBIOLOGY - GENER AL ORDERABLES Edited Result - Final [facility] Department [place] [id number] from Last 3 Months or Most Recently Relevant to Health Maintenance Insurance MEDICARE [facility] MEDICARE [facility] Address: [address] [address] [place] [address] [facility] MEDICARE AD[facility] MEDICARE [facility] MEDICARE Address: [address] [place] [phone] [employer] MEDICARE [facility] MEDICARE Address: [address] [place], [place] [phone] [facility] MEDICARE [facility] Address: [address] [place] [phone] Advance Directives For more information, please contact: [phone] * Full Code (Latest Code Status on [...] 5:18 PM 02/21/2021 4:10 PM Care Teams Reception Specialist Relationship Specialty Start Date End Date Akhil Russo MD [address] [place] [address] PCP - General Family Medicine 11/29/21 Lorene Prince MD Medical Oncologist/Hematologis t Medical Oncology 01/31/21 Mili Mcleod NP [address] [place] [address] Nurse Practitioner Cardiovascular Disease 07/18/22 Guillermina Stokes MD [address] [address] Referring Physician Endocrinology Diabetes & Metabolism 08/20/23
--- OUTSIDE RECORDS SUMMARY | 2024-12-20 01:19 | XMS_ITS | Continuity of Care Document ---
Author Organization [facility] Address [address] [place] [address] Phone Care Team Providers Care Unit Supervisor Name Role Phone Marcie Artis MD Unavailable Unavailable Medications Medication Instructions Dosage Effective Dates (start - stop) Status Comments AEROCHAMBER PUFFS 1 DIRECTE - Activ e VIOXX 25MG TABS 1 QD - Active PAXIL CR 25MG TABS 2 QD - Active PREDNISONE 20MG TABS 1 QD - Activ e SINGULAIR 10MG TABS 1 QHS - Active ZYRTEC 10MG TABS 1 QD - Active ALBUTEROL 90MCG PUFFS 2 QID - Acti ve XANAX 0.5MG TABS .5 QD - No Longer Active BUSPAR 10MG TABS 1 TID - No Longer Active AMBIEN 10MG TABS 1 QHS - No Longer Active SINEMET-25/100 25-100MG TABS 1 QID - No Longer Active Advance Directives Directive Yes / No Effective Date File Name No Information Encounters Encounter Description Practice Location Reason(s) For Visit Diagnoses Date Provider Providers Copied on Encounter [facility], [address], [place], [place], [address] , [place] tel:[phone] [facility] No Information Jan- 1 Steff Jack. [address], [address], [place], [place], [id number], [place]. tel:[phone] [facility], [address], [place], [place], [address] , [place] tel: [phone] [facility] CHEST PAIN NOS Jul- 6-200 3 Steff Jack. [address] , [address], [place], [place], [id number], [place]. tel:[phone] [facility], [address], [place], [place], [address] , [place] tel: [phone] [facility] ALLERGIC RHINITIS NOSPARALYSIS AGITANSINSOMNIA NOSDEPRESSIVE DISORDER NECEXTRINSIC ASTHMA NOS 5200 [address] [employer] [facility]. [address] [place] [address], [address], [place]. [facility], [address], [place], [place], [address] , tel: [phone] [facility] ANXIETY STATE NOSSCREEN LIPOID DISORDERSSCREEN- DIABETES MELLITUSMALAISE AND FATIGUE NEC 7200 3 Steff Jack. [address] , [address], [place], [place], [address], [place]. tel:[phone] Family History Family Member Type Diagnosis Age At Onset No Information Payers Payer name Insurance type Covered republican ID Authoriza tion(s) No Information Social History Type Description Quantity Date Captured Comments Sex Female Smoking Status No Information Chief Complaint And Reason For Visit No Information Reason For Referral Reason For Referral No Information History Of Present Illness Encounter Date Complaint History Of Prese nt Illness No Information Functional Status Date Functional Assessmen t No Information Instructions Date Instruction Additional Infor mation No Information Assessments Type Assessment Date No Information Patient Care Teams Name Effective Dates (start - stop) Status Members No Information
--- OUTSIDE RECORDS SUMMARY | 2024-12-20 01:19 | XMS_ITS ---
Author Organization [facility] Address [address] [place] [address] Care Team Providers Care Suspect Artist Supervisor Name Role Phone Lorene Prince MD Unavailable [phone] Akhil Russo MD Primary Care Provider [phone] Mili Mcleod NP Unavailable Guillermina Stokes MD Unavailable [phone] Active Problems Problem Noted Date Diagnosed Date [...] resolve. Assessment & Plan (04/05/2022 12:32 AM MEDICAL DETAIL REPRESENTATIVE): - Pt c/o dehydration and lightheadedness on exam - CTH was unremarkable for any acute intracranial abnormalities. No orthostatis noted on exam - c/w LR @ 75 ml/hr Bacteriuria 04/05/2022 Assessment & Plan (04/05/2022 12:39 AM MEDICAL DETAIL REPRESENTATIVE): - UA was + for LE and trace Bacteria, given immunocompromised status, will start on Cefepime IV 2g q12h pending cultures - Taper coverage based on c&s Headache 04/05/2022 Assessment & Plan (04/05/2022 12:40 AM MEDICAL DETAIL REPRESENTATIVE): - Pt c/o intermittent headaches and lightheadedness on exam. Given hx of mets CTH was obtained which was unremarkable for any acute intracranial abnormalities. Seasonal allergies 04/05/2022 Assessment & Plan (04/05/2022 12:40 AM MEDICAL DETAIL REPRESENTATIVE): - c/w Flonase nasal spray MARAVILLA (dyspnea on exertion) 04/05/2022 Assessment & Plan (04/05/2022 12:48 AM MEDICAL DETAIL REPRESENTATIVE): - Pt c/o dyspnea on exertion , can likely be related to metastatic disease progression - EKG was unremarkable on admission while Trop and BNP were also WNL - TTE donw previously in 12/2020 was remarkable for LVEf of 54% with limited study - Plan to repeat TTE Diarrhea in adult patient 04/04/2022 Assessment & Plan (04/05/2022 12:37 AM MEDICAL DETAIL REPRESENTATIVE): - Pt presented with worsening NB , [...] 11/30/2021 Assessment & Plan (03/19/2024 10:38 AM MEDICAL DETAIL REPRESENTATIVE): A(n) yearly Medicare Annual Wellness Visit has [...] OK Assessment & Plan (07/08/2022 12:17 PM MEDICAL DETAIL REPRESENTATIVE): TSH 0.17 uIU/ml, normal T4 Thyroid dosing has been adjusted, awaiting repeat Assessment & Plan (04/05/2022 12:34 AM MEDICAL DETAIL REPRESENTATIVE): - c/w Synthroid 100 mcg po qam [...] zoloft Assessment & Plan (04/05/2022 12:37 AM MEDICAL DETAIL REPRESENTATIVE): - c/w Sertraline 25 mg po every [...] meningitis -Total spine MRI was ordered in [facility] and completed --> Posterior T12 Vertebral [...] meningitis -Total spine MRI was ordered in [facility] and completed, read pending -Will start [...] 02/18/2021 Assessment & Plan (04/05/2022 12:34 AM MEDICAL DETAIL REPRESENTATIVE): - Pt c/o worsening SOB which can [...] dehydration Assessment & Plan (07/08/2022 12:18 PM MEDICAL DETAIL REPRESENTATIVE): Renal function decreased, GFR at 42 Creatinine 1.39 Advised on hydration Assessment & Plan (04/05/2022 12:34 AM MEDICAL DETAIL REPRESENTATIVE): - c/w Toprol XL 50 mg po [...] recurrence. Assessment & Plan (04/05/2022 12:31 AM MEDICAL DETAIL REPRESENTATIVE): - Pt was diagnosed with left renal [...] Treatment Medications Discontinue Reason Plan Provider Cycles [id number] [facility] [id number] Part 1 Arm A Nivolumab + Bempegaldesleukin + Axitinib 01/18/20 21 07/24/2022 [facility] (/ [id number]) Nivolumab/BMS -[id number] IVPB in 50 mL[facility]_ H (/ [id number]) NKTR-214 (BEMPEGALDESL EUKIN) IVPB in 50 mL () [facility] axitinib (/ [id number]) Progressive Disease Lorene Prince MD 24 of [...] 07/18/2023 Assessment & Plan (04/05/2022 12:39 AM MEDICAL DETAIL REPRESENTATIVE): - Pt has documented hx of PE, has been off AC for over 3 months Total perforation of left tympanic membrane 09/12/2021 02/10/2022 Overview (09/12/2021): Added automatically from request for surgery [id number] Left renal mass 01/03/2019 01/24/2019 Overview (01/03/2019): Added automatically from request for surgery [id number]
--- OUTSIDE RECORDS SUMMARY | 2024-12-20 01:19 | XMS_ITS | Encounter Summary ---
Author Organization [facility] Address [address] [place] [address] Care Team Providers Care Paint Mixer Name Role Phone Unavailable Primary Care Provider Unavailabl e Reason for Visit * Diagnostic Imaging (Routine) - Closed Specialty Diagnoses / Procedures Referred By Contac t Referred To Contact Procedures Breast Imaging Screening Outside Reference Referral, Self Referral ID Status Reason Start Date Expiration Date Visits Re quested Visits Authorized [id number] Closed 10/05/2022 11/04/2023 1 1 Encounter Details Date Type Department Care Team (Late st Contact Info) Description 09/15/2011 Hospital Encounter [facility] [address] [place] [address] Social History Tobacco Use Types Packs/Day Years Used Date Smoking Tobacco: Never Passive Smoke Exposure: Past Smokeless Tobacco: Never Alcohol Use Standard Drinks/Week Comments Never 0 (1 standard drink = 0.6 oz pur e alcohol) [facility] Utilities Answer Date Recorded In the past 12 months has [employer], gas, oil, or water [employer] threatened to shut off services in your [...] answer 09/04/2023 How often do you attend [facility] or buddhism services? Patient unable to answer 09/04/2023 Do [...] on file Legal Sex Female 8:[address] ENGINEER Gender Identity Female 12/08/2020 1:45 PM [...] only and have not been reviewed by [facility] Radiology. There will be no report generated by a [facility] Radiologist. Narrative [facility]_MAMMO_[facility] - [...] C. difficile suspected 07/05/2023 07/05/2023 10:[address] ENGINEER COVID: Suspected 08/22/2023 08/22/2023 08/22/2023 5:03 PM CDT C. difficile suspected 08/22/2023 08/22/202308/22 3:06 AM CDT C. difficile suspected 09/01/2023 09/02/202309/04 3:05 AM CDT Norovirus suspected 09/01/2023 09/02/2023 09/05/19 3:05 AM CDT documented as of this encounter
--- OUTSIDE RECORDS SUMMARY | 2024-12-20 01:19 | XMS_ITS | Encounter Summary ---
Author Organization [facility] Address [address] [place] [address] Phone Care Team Providers Care Paper Products Inspector Name Role Phone Lorene Prince MD Unavailable [phone] Akhil Russo MD Primary Care Provider [phone] Mili Mcleod NP Unavailable Guillermina Stokes MD Unavailable [phone] Encounter Details Date Type Department Care Team (Latest Contact Info) Description 07/12/2024 Orders Only [facility] Scanning, Provider Social History Tobacco Use Types Packs/Day Years Used Date Smoking Tobacco: Never Passive Smoke Exposure: Past Smokeless Tobacco: Never Alcohol Use Standard Drinks/Week Comments Never 0 (1 standard drink = 0.6 oz pur e alcohol) [facility] Utilities Answer Date Recorded In the past 12 months has [employer], gas, oil, or water [employer] threatened to shut off services in your [...] answer 09/04/2023 How often do you attend [facility] or gnosticist services? 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
--- OUTSIDE RECORDS SUMMARY | 2024-12-20 01:19 | XMS_ITS | Encounter Summary ---
Author Organization [facility] Healthcare Address [address] [place] [address] Care Team Providers Care Optical Glass Silverer Name Role Phone Fide Contreras MD Primary Care Provider Reason for Visit * Diagnostic Imaging (Routine) - Closed Specialty Diagnoses / Procedures Referred By Yrn mei Referred To Contact Diagnoses Malignant neoplasm of left kidney (HCC) Malignant neoplasm of left kidney (HCC) Procedures Breast Imaging Screening Outside Reference Referral, Self Referral ID Status Reason Start Date Expiration Date Visits Re quested Visits Authorized [id number] Closed 10/05/2022 11/04/2023 1 1 Encounter Details Date Type Department Care Team (Late st Contact Info) Description 10/31/2019 Hospital Encounter [facility] [address] [place] [address] Social History Tobacco Use Types Packs/Day Years Used Date Smoking Tobacco: Never Passive Smoke Exposure: Past Smokeless Tobacco: Never Alcohol Use Standard Drinks/Week Comments Never 0 (1 standard drink = 0.6 oz pur e alcohol) [facility] Utilities Answer Date Recorded In the past 12 months has [employer] electric, gas, oil, or water company threatened [...] How often do you attend chur or cheondoism services? Patient unable to answer 09/04/2023 Do [...] place to sleep or slept in a detention (including now)? 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 There will be no report generated by a [facility] Radiologist. Narrative RAD_MAMMO_[facility] - 10/05/2022 [...] C. difficile suspected 07/05/2023 07/05/2023 10:37 PM SECONDARY SCHOOL TEACHER COVID: Suspected 08/22/2023 08/22/2023 08/22/2023 5:03 PM CDT C. difficile suspected 08/22/2023 08/22/202308/22 3:06 AM CDT C. difficile suspected 09/01/2023 09/02/202309/04 3:05 AM CDT Norovirus suspected 09/01/2023 09/02/2023 09/05/19 3:05 AM CDT documented as of this encounter Care Teams Optical Glass Silverer Relationship Specialty Start Date End Date Fide Contreras MD [address] [place] [address] PCP - General Family Medicine 01/01/19 11/15/21 documented as of this encounter
--- OUTSIDE RECORDS SUMMARY | 2024-12-20 01:19 | XMS_ITS | Encounter Summary ---
Author Organization [facility] Healthcare Address [address] [place] [address] Care Team Providers Care Post Production Assistant Name Role Phone Unavailable Primary Care Provider Unavailabl e Reason for Visit * Diagnostic Imaging (Routine) - Closed Specialty Diagnoses / Procedures Referred By Contac t Referred To Contact Procedures Breast Imaging Screening Outside Reference Referral, Self Referral ID Status Reason Start Date Expiration Date Visits Re quested Visits Authorized [id number] Closed 10/05/2022 11/04/2023 1 1 Encounter Details Date Type Department Care Team (Late st Contact Info) Description 01/27/2014 Hospital Encounter [facility] [address] [place] [id number] Social History Tobacco Use Types Packs/Day Years Used Date Smoking Tobacco: Never Passive Smoke Exposure: Past Smokeless Tobacco: Never Alcohol Use Standard Drinks/Week Comments Never 0 (1 standard drink = 0.6 oz pur e alcohol) [facility] Utilities Answer Date Recorded In the past 12 months has [employer], gas, oil, or water [employer] threatened to shut off services in your [...] answer 09/04/2023 How often do you attend [facility] or shinto services? 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 There will be no report generated by a [facility] Radiologist. Narrative RAD_MAMMO_[facility] - 10/05/2022 [...] C. difficile suspected 07/05/2023 07/05/2023 10:37 PM DIGITAL CONTENT MARKETING MANAGER COVID: Suspected 08/22/2023 08/22/2023 08/22/2023 5:03 PM CDT C. difficile suspected 08/22/2023 08/22/202308/22 3:06 AM CDT C. difficile suspected 09/01/2023 09/02/202309/04 3:05 AM CDT Norovirus suspected 09/01/2023 09/02/2023 09/05/19 3:05 AM CDT documented as of this encounter
--- OUTSIDE RECORDS SUMMARY | 2024-12-20 01:19 | XMS_ITS | Continuity of Care Document ---
Author Organization [facility] Address [address] [place] [address] Phone Care Team Providers Care Liquefied Natural Gas Plant Operator Name Role Phone Jo PT, KRISHNAT, Belem Unavailable Unavaila ble Procedures Procedure Date Therapeutic Activities Neuromuscular Re-Ed Therapeutic Exercise Hot or Cold Pack Progress Note Therapeutic Activities Neuromuscular Re-Ed Therapeutic Exercise Hot or Cold Pack Therapeutic Activities Neuromuscular Re-Ed Therapeutic Exercise Hot or Cold Pack Remote therapeutic monitor monthly mgmt 20m Remote therapeutic monitor monthly mgmt add 20m Therapeutic Activities Neuromuscular Re-Ed Therapeutic Exercise Hot or Cold Pack Therapeutic Activities Neuromuscular Re-Ed Therapeutic Exercise Hot or Cold Pack Therapeutic Activities Neuromuscular Re-Ed Therapeutic Exercise Hot or Cold Pack Doc neg elder mal no plan PRES/ABSN URINE INCON ASSESS PT Evaluation Moderate Complexity Therapeutic Activities Neuromuscular Re-Ed Therapeutic Exercise Advance Directives Directive Yes / No Effective Date File Name No Information Encounters Encounter Description Practice Location Reason(s) For Visit Diagnoses Date Provider Providers Copied on Encounter [facility], [address] [facility] [address], [place], [place], [id number], [place] tel:[phone] [place] No Information Osorio Belem. . Referring Provider: Ezekiel Jerez, [address], [place], [address]. tel:[phone] [place] [address] [facility] [address], [place], [place], [id number], [place] tel:[phone] [place] No Information Osorio Belem. . Referring Provider: Ezekiel Jerez, [address] [place] [address] [address] Floor [address], [place], [address]. tel:[phone] [place] [address] [facility] [address], [place], [place], [id number], [place] tel:[phone] [place] No Information Osorio Belem. . Referring Provider: Ezekiel Jerez, [address] [place] [address] [address] Floor [address], [place], [address]. tel:[phone] [place], [place] [address] [facility] [address], [place], [place], [address], [place] tel:[phone] [place] No Information Osorio Belem. . Referring Provider: Ezekiel Jerez, [address] [facility] [address], [place], [address]. tel:[phone] [place] [address] [facility] [facility] [address], [place], [place], [address], [place] tel:[phone] [place] Unilateral primary osteoarthriti s, right kneePain in right kneeMuscle weakness (generalized) 5 Osorio Belem. . Referring Provider: Ezekiel Holbrook, [address] [facility] [address] Floor [address], [place], [address]. tel:[phone] [facility], [address] [place] [address] [address], [place], [place], [address], tel:[phone] [place] No Information 5 Osorio Belem. . Referring Provider: Ezekiel Jerez, [address] [facility] [address] Floor [address], [place], [address]. tel:[phone], [place], [place], [address], [place] tel:[phone] [place] No Information 5 Osorio Belem. . Referring Provider: Ezekiel Jerez, [address] [place] [address] [address] Floor [address], [place], [address]. tel:[phone] [facility], [address] [place] [address] [address], [place], [place], [address], [place] tel:[phone] [place] No Information 5 Sandi Philip. . Referring Provider: Ezekiel Jerez, [address] [facility] [address] Floor [address], [place], [address]. tel:[phone], [place], [place], [address], [place] tel:[phone] [place] No Information 5 Osorio Belem. . Referring Provider: Ezekiel Jerez, [address] [facility] [address], [place], [address]. tel:[phone] Family History Family Member Type Diagnosis Age At Onset No Information Payers Payer name Insurance type Covered libertarian ID Franka philly(s) [facility] CI [id number] Social History Type Description Quantity Date Captured Comments Sex Female Smoking Status No Information Chief Complaint And Reason For Visit No Information Reason For Referral Reason For Referral No Information Plan Of Treatment Date Type Action Status Appointment Jailyn Condon BOOKED Appointment Jailyn Condon BOOKED History Of Present Illness Encounter Date Complaint History Of Prese nt Illness No Information Functional Status Date Functional Assessmen t No Information Instructions Date Instruction Additional Infor mation No Information Assessments Type Assessment Date No Information Patient Care Teams Name Effective Dates (start - stop) Status Members No Information
--- OUTSIDE RECORDS SUMMARY | 2024-12-20 01:19 | XMS_ITS | Continuity of Care Document ---
Author Organization [facility] Address [address] [place] [address] Phone Care Team Providers Care Interlocking Machine Operator Name Role Phone oJ PT, DPT, Belem Unavailable Unavaila ble Procedures Procedure Date Waive Cancel or No Show - No Charge Therapeutic Activities Neuromuscular Re-Ed Manual Therapy Therapeutic Exercise Hot or Cold Pack Electrical Stimulation Therapeutic Activities Neuromuscular Re-Ed Therapeutic Exercise Manual Therapy Hot or Cold Pack Electrical Stimulation Therapeutic Activities Neuromuscular Re-Ed Therapeutic Exercise Manual Therapy Electrical Stimulation Hot or Cold Pack Therapeutic Activities Neuromuscular Re-Ed Therapeutic Exercise Manual Therapy Hot or Cold Pack Electrical Stimulation PT Evaluation Moderate Complexity Therapeutic Activities Therapeutic Exercise Neuromuscular Re-Ed Manual Therapy Electrical Stimulation Hot or Cold Pack Advance Directives Directive Yes / No Effective Date File Name No Information Encounters Encounter Description Practice Location Reason(s) For Visit Diagnoses Date Provider Providers Copied on Encounter [facility], [facility] [address], [place], [place], [id number], [place] tel:[phone] [place] No Information 5 Jo Patricia. . Referring Provider: Physician Screen. [facility] [address], [place], [place], [address], tel:[phone] [place] No Information 9 Nini Govind. . [facility] [facility] [address], [place], [id number], tel:[phone] [place] No Information 9 Nini Faust. . [facility], [place], [place], [address], tel:[phone] [place] No Information 9 Nini Faust. . [facility] [facility] [address], [place], [place], [address], tel:[phone] [place] No Information 9 Nini Govind. . [facility], [place], [place], [address], tel:[phone] [place] No Information 9 Nini Govind. . Family History Family Member Type Diagnosis Age At Onset No Information Payers Payer name Insurance type Covered constitution party ID Authoriza tion(s) No Information Social History [...]
--- OUTSIDE RECORDS SUMMARY | 2024-12-20 01:19 | XMS_ITS | Encounter Summary ---
Author Organization [facility] Address [address] [place] [address] Phone Care Team Providers Care Database Operator Name Role Phone Lorene Prince MD Unavailable [phone] Akhil Russo MD Primary Care Provider [phone] Mili Mcleod NP Unavailable Guillermina Stokes MD Unavailable Encounter Details Date Type Department Care Team (Late st Contact Info) Description 12/19/2024 Telephone [facility] [address] [facility] [address] [place] [address] Lorene Prince MD [address] [place] [address] Social History Tobacco Use Types Packs/Day Years Used Date Smoking Tobacco: Never Passive Smoke Exposure: Past Smokeless Tobacco: Never Alcohol Use Standard Drinks/Week Comments Never 0 (1 standard drink = 0.6 oz pur e alcohol) [facility] Utilities Answer Date Recorded In the past 12 months has [employer] electric, gas, oil, or water company threatened [...] How often do you attend chur or latter day services? 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 The ED physician started her on Metoclopramide and Diphen/Atrop Reglan dose is 10 mg po every 6 hours as needed for Nausea and vomiting. I asked her about the Nausea and vomiting because when we spoke yesterday on the phone she was justhaving diarrhea. She stated after she talked with me on the phone she started to have the Nausea and vomiting. She received ` liter of fluids, IV nausea meds. The nausea and vomiting stopped, her abdomen is sore for the vomiting. Diarrhea stopped at 7 pm last night. She is feeling better today. She is able to eat fried rice and drinking plenty of fluids. Continue to hold the Lenv/Margot. She will resume the meds on Sunday12/22/24 if she continues to feel better. She was concern about taking the Reglan and Diphen/atrop due to kidney function. Spoke with Harshil (clinical pharmacist). Recommendation was to take only 5mg of Reglan every 6 hoursPRN. Instructed Jailyn to cut the tablet in half to only take 5 mg Reglan as needed. Will follow up with her next Sunday or Sunday to see if she resumed the Lenv/Margot. documented in this encounter Plan of Treatment Not on file documented as of this encounter Visit Diagnoses Not on filedocumented in this encounter Care Teams Database Operator Relationship Specialty Start Date End Date Akhil Russo MD [address] [place] [address] PCP - General Family Medicine 11/29/21 Lorene Prince MD Medical Oncologist/Hematologis t Medical Oncology 01/31/21 Mili Mcleod NP [address] [place] [address] Nurse Practitioner Cardiovascular Disease 07/18/22 Guillermina Stokes MD [address] [address] Referring Physician Endocrinology Diabetes & Metabolism 08/20/23 documented as of this encounter
--- OUTSIDE RECORDS SUMMARY | 2024-12-20 01:19 | XMS_ITS | Encounter Summary ---
Author Organization [facility] Healthcare Address [address] [place] [address] Care Team Providers Care Gluing Crew Leader Name Role Phone Fide Contreras MD Primary Care Provider Lorene Prince MD Unavailable [phone] Vinod Bird MD Unavailable Sandra Prieto Primary Care Provider [phone] Akhil Russo MD Primary Care Provider [phone] Mili Mcleod NP Unavailable Guillermina Stokes MD Unavailable Encounter Details Date Type Department Care Team (Late st Contact Info) Description 01/04/2021 Telephone [facility] Radiology [address] [place], [place] [id number] Lorene Prince MD [address] [place] [address] Social History Tobacco Use Types Packs/Day Years [...] on file 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 difficile suspected 07/05/2023 07/05/2023 10:37 PM LEAD PERSON COVID: Suspected 08/22/2023 08/22/2023 08/22/2023 5:03 PM CDT C. difficile suspected 08/22/2023 08/22/202308/22 3:06 AM CDT C. difficile suspected 09/01/2023 09/02/202309/04 3:05 AM CDT Norovirus suspected 09/01/2023 09/02/2023 09/05/19 3:05 AM CDT documented as of this encounter Care Teams Gluing Crew Leader Relationship Specialty Start Date End Date Fide Contreras MD [address] [place] [address] PCP - General Family Medicine 01/01/19 11/15/21 Sandra Prieto PA [address] [place] [address] PCP - General Internal Medicine 11/16/21 11/28/21 Akhil Russo MD [address] [place] [address] PCP - General Family Medicine 11/29/21 Lorene Prince MD [address] [place] [address] Medical Oncologist/Hematologis t Medical Oncology 01/31/21 Vinod Bird MD [address] [place] [address] Consulting Physician Cardiovascular Disease 03/23/21 Mili Mcleod NP [address] [place] [address] Nurse Practitioner Cardiovascular Disease 07/18/22 Guillermina Stokes MD [address] [facility] [address], [place] [address] Referring Physician Endocrinology Diabetes & Metabolism 08/20/23 documented as of this encounter
--- OUTSIDE RECORDS SUMMARY | 2024-12-20 01:19 | XMS_ITS | Encounter Summary ---
Author Organization [facility] Address [address] [place] [address] Phone Care Team Providers Care Charter Boat Operator Name Role Phone Lorene Prince MD Unavailable [phone] Akhil Russo MD Primary Care Provider [phone] RaterMili NP Unavailable Guillermina Stokes MD Unavailable [phone] Encounter Details Date Type Department Care Team (Late st Contact Info) Description 10/10/2022 Telephone [facility] - [facility] ENT [address] [facility] [address]th [place] [address] [place] [address] Goyo [place] MD [address] [place] [address] Social History Tobacco Use Types Packs/Day Years [...] on file 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 difficile suspected 07/05/2023 07/05/2023 10:37 PM STRUCTURED CABLING TECHNICIAN COVID: Suspected 08/22/2023 08/22/2023 08/22/2023 5:03 PM CDT C. difficile suspected 08/22/2023 08/22/202308/22 3:06 AM CDT C. difficile suspected 09/01/2023 09/02/202309/04 3:05 AM CDT Norovirus suspected 09/01/2023 09/02/2023 09/05/19 3:05 AM CDT documented as of this encounter Care Teams Charter Boat Operator Relationship Specialty Start Date End Date Akhil Russo MD [address] [place] [address] PCP - General Family Medicine 11/29/21 Lorene Prince MD Medical Oncologist/Hematologis t Medical Oncology 01/31/21 Mili Mcleod NP [address] [place] [address] Nurse Practitioner Cardiovascular Disease 07/18/22 Guillermina Stokes MD [facility] [facility] [address] [place] [address] Referring Physician Endocrinology Diabetes & Metabolism 08/20/23 documented as of this encounter
[2024-12-20 01:50] LABS: Hematocrit 45.4 % (37.0-47.0); Hemoglobin 13.4 g/dL (12.0-15.0); Immature Granulocyte Percent A 0.5 % (0-0.5); Immature Platelet Fraction Pct 7.5 % (0.9-11.2); Lymphocytes Absolute Auto 1.01 K/mm3 (0.9-3.2); Mean Corpuscular HGB Conc 29.5 g/dl (32-36); Mean Corpuscular Hemoglobin 22.8 pg (26-34); Mean Corpuscular Volume 77.1 fl (80-100); Nucleated Red Blood Cells Absolute Auto 0.000 K/mm3 (0.0-0.012); Nucleated Red Blood Cells Perc 0.0 % (0.0-0.2); Platelet Count Result 155 k/mm3 (150-375); Red Blood Count 5.89 M/mm3 (4.2-5.4); White Blood Count 7.6 K/mm3 (4.5-10.0)
[2024-12-20] MEDS: LACTATED RINGERS 1,000 ML 999 ML IV CONT ×2 (01:50)
--- NOTE | 2024-12-20 01:50 | ED.NAVMDI ---
HPI - Nausea/Vomiting/Diarrhea General Chief complaint: Nausea/Vomiting/Diarrhea Stated complaint: n/v/d Time Seen by Provider: 12/20/24 01:22 History of Present Illness HPI Narrative: 64-year-old female with a history of renal cell carcinoma with metastatic disease to the lung. She presents to the emergency department with nausea vomiting diarrhea for several days. She went to the emergency department yesterday and had symptomatic improvement treatment after labs and imaging were done. She felt better upon discharge but had recurrence for symptoms throughout the night. No new symptoms, no fever, chills, chest pain shortness a breath. She is endorsing some epigastric abdominal discomfort with nausea vomiting. She was otherwise in her normal state of health. She is on oral chemotherapy agents including Everolimus and states she has been stable on her medications for several years. No recent infections or illnesses otherwise. Has a cancer specialist with the [facility] group. Related Data Home Medications ?Medication ?Instructions ?Recorded ?Confirmed ?Last Taken ?Type cetirizine 10 mg tablet 10 mg PO DAILY 02/23/20 12/20/24 12/19/24 History Daily Multi-Vitamin 1 tablet PO DAILY 05/15/21 12/20/24 12/19/24 History Inlyta 5 mg PO DAILY 05/15/21 12/20/24 12/19/24 History acetaminophen 650 mg PO Q6-8H PRN Pain 05/15/21 12/20/24 12/19/24 History levothyroxine 25 mcg tablet 25 mcg PO DAILY 05/15/21 12/20/24 12/19/24 History (Synthroid) amlodipine 5 mg tablet (Norvasc) 5 mg PO DAILY 07/12/24 12/20/24 12/19/24 History lenvatinib 8 mg/day (4 mg x 2) 8 mg PO DAILY 07/12/24 12/20/24 12/19/24 History capsule (Lenvima) Allergies Allergy/AdvReac Type Severity Reaction Status Date / Time codeine Allergy Severe Hives Verified 12/20/24 02:06 Penicillins Allergy Severe Hives Verified 12/20/24 02:06 Sulfa (Sulfonamide Allergy Severe Hives Verified 12/20/24 02:06 Antibiotics) lactase (From Dairy Aid) Allergy Migraine Verified 12/20/24 02:06 Jewell And Derivatives AdvReac Intermediate Migraine Verified 12/20/24 02:06 egg AdvReac Intermediate Migraine Verified 12/20/24 02:06 egg yolk AdvReac Intermediate Migraine Verified 12/20/24 02:06 fish derived AdvReac Intermediate Migraine Verified 12/20/24 02:06 milk AdvReac Intermediate Migraine Verified 12/20/24 02:06 nut - unspecified AdvReac Intermediate Migraine Verified 12/20/24 02:06 Review of Systems Review of Systems: As reviewed above in HPI PMFSH Past Medical History Medical History Metastatic renal cell carcinoma to lung Vitamin D deficiency Hypertension Allergic asthma Surgical History Surgical History History of arthroscopic knee surgery History of cholecystectomy History of left nephrectomy (01/2019) Family History Family History Father Family history of blood dyscrasia, Onset Age: 68 Family history of heart disease in male family member before age 55 Patient's father is Asthma Mother Family history of elevated blood lipids Family history of diabetes mellitus in first degree relative Hypertension Diabetes mellitus Sibling Asthma Diabetes mellitus Family history of sickle cell trait Multiple sclerosis Lupus Hypertension Grandparent Family history of malignant neoplasm of breast Family history of blood dyscrasia Social History Social History Social History: Surrogate decision maker: Sha Condon, marti. Code status: Full code. Smoking status: Never smoker Second hand tobacco smoke exposure: No Alcohol intake: never Substance use: never Substance use type: does not use Do You Feel Safe in your Home?: Yes Lack of Transportation: No Lack of Food: Never True Current Housing: I Have Housing Concerned About Future Housing: No Difficulty Paying Gas/Electric Bills: No Difficulty Paying for Meds: No Currently Unemployed: No Education: Associate Degree Difficulty w/ Childcare or Family Care: No Living arrangements: with family Occupation/Education: unemployed Additional occupation/education comments: On disability. Gender identity (if verbalized by the patient): Female Sexual Orientation (if Verbalized by the Patient): Straight or Heterosexual Spiritual care concerns: No Exam Narrative: GENERAL: [Well-appearing, well-nourished, and in no acute distress.] HEAD: [Normocephalic, atraumatic.] EYES: [PERRLA and EOMI.] ENT: Nares clear, no rhinorrhea or epistaxis. Mucous membranes dry. NECK: Supple. CHEST: [Clear to auscultation. No respiratory distress.] HEART: [Regular rate and rhythm]. No murmur heard. [Normal peripheral pulses.] ABDOMEN: [Soft, nondistended], [nontender], [No rigidity or guarding] EXTREMITIES: Normal range of motion. [No edema.] SKIN: Warm, dry, no rash. NEURO: [No focal deficits]. Alert and oriented [x3.] PSYCH: [Normal mood and affect.] Course Vital Signs Vital signs: Vital Signs Temperature 36.4 C 12/20/24 01:29 Pulse Rate 112 H 12/20/24 01:29 Respiratory Rate 20 12/20/24 01:29 Blood Pressure 111/72 12/20/24 01:29 Pulse Oximetry 97 12/20/24 01:29 Oxygen Delivery Room Air 12/20/24 01:29 Temperature 36.4 C 12/20/24 01:29 Pulse Rate 97 12/20/24 06:36 Respiratory Rate 17 12/20/24 06:36 Blood Pressure 105/67 12/20/24 06:36 Pulse Oximetry 97 12/20/24 06:36 Oxygen Delivery Room Air 12/20/24 01:29 MDM - Nausea/Vomiting/Diarrhea MDM Narrative Medical decision making narrative: 64-year-old female with a history of renal cell carcinoma with metastatic disease to the lung. She presents to the emergency department with nausea vomiting diarrhea for several days. She went to the emergency department yesterday and had symptomatic improvement treatment after labs and imaging were done. She felt better upon discharge but had recurrence for symptoms throughout the night. No new symptoms, no fever, chills, chest pain shortness a breath. She is endorsing some epigastric abdominal discomfort with nausea vomiting. She was otherwise in her normal state of health. She is on oral chemotherapy agents including Everolimus and states she has been stable on her medications for several years. No recent infections or illnesses otherwise. Has a cancer specialist with the [facility] group. Patient is not in any acute distress but is feeling nauseous and has an emesis basin at bedside. She is dehydrated appearing and orthostatic on her vital signs. Initial blood pressure 91/53 that decreased 80s when she stood up. She is given 2 L pressure back fluid for resuscitation, blood cultures lactic acid drawn, CBC, CMP, lipase, urinalysis with straight catheterization, CT abdomen pelvis with contrast ordered. Awaiting initial lab results prior to initiation of antibiotics in case this is just dehydration intravascular volume depletion rather than infectious source. She was given Zofran in addition to her fluids. Patient's vital signs markedly improved after 30 cc/kg bolus. She had improvement in pulse down to normal sinus rhythm, blood pressure improved to the 110s range. Remained afebrile. CT scan shows diffuse enterocolitis but no acute abscess formation, no evidence of bowel obstruction. Normal appendix. Laboratory studies show no significant leukocytosis, normal hemoglobin level. Lactic acid elevated 2.4, creatinine elevated 1.35 consistent with acute kidney injury and dehydration. Glucose 169. Normal electrolytes otherwise. Patient started on ciprofloxacin and Flagyl for gastroenteritis coverage. Given patient's improvement and response to fluids she is stable at this time for admission to the hospital onto a monitored telemetry bed. Discussed with the hospitalist who accepted the patient at this time. Medical Records Attestation: I reviewed the patient's medical records. Lab Data Attestation: I reviewed the patient's lab results. 12/20/24 01:43 12/20/24 01:43 Labs: Lab Results 12/20/24 12/20/24 12/20/24 Range/Units 01:43 02:29 05:11 WBC 7.6 (4.5-10.0) K/mm3 RBC 5.89 H (4.2-5.4) M/mm3 Hgb 13.4 (12.0-15.0) g/dL Hct 45.4 (37.0-47.0) % MCV 77.1 L (80-100) fl MCH 22.8 L (26-34) pg MCHC 29.5 L (32-36) g/dl RDW 20.4 H (11.5-14.5) % Plt Count 155 (150-375) k/mm3 MPV 10.4 (7.4-10.4) fl Immature Gran % (Auto) 0.5 (0-0.5) % Neut % (Auto) 81.0 H (45.5-73.1) % Lymph % (Auto) 13.3 L (18.3-44.2) % Greenlee % (Auto) 4.5 (2.6-8.5) % Eos % (Auto) 0.4 (0-4.4) % Baso % (Auto) 0.3 (0.2-1.2) % Lymph # (Auto) 1.01 (0.9-3.2) K/mm3 Greenlee # (Auto) 0.3 (0.1-0.6) K/mm3 Eos # (Auto) 0.0 (0-0.3) K/mm3 Baso # (Auto) 0.0 (0.0-0.1) K/mm3 Abs Immat Gran (auto) 0.04 H (0.00-0.031) K/mm3 Absolute Neuts (auto) 6.2 (1.3-6.7) K/mm3 Absolute Nucleated RBC 0.000 (0.0-0.012) K/mm3 Band Neutrophils % 0 (0-6) % Nucleated RBC % 0.0 (0.0-0.2) % Platelet Estimate Adequate (Adequate) % Immature Plt Fraction 7.5 (0.9-11.2) % Poikilocytosis 1+ Anisocytosis 1+ Ovalocytes 1+ Schistocytes None seen Sodium 139 (137-145) mmol/L Potassium 3.5 (3.4-5.0) mmol/L Chloride 107 (98-107) mmol/L Carbon Dioxide 16 L (22-30) mmol/L Anion Gap 16 H (4-12) mmol/L BUN 13 (7-17) mg/dL Creatinine 1.35 H (0.7-1.0) mg/dL Estim Creat Clear Calc 32 ml/min Estimated GFR 39 L (59 - ) Glucose 169 H (65-110) mg/dL Lactic Acid 2.4 H (0.7-2.0) mmol/L Calcium 9.9 (8.4-10.2) mg/dL Total Bilirubin 1.2 (0.2-1.3) mg/dL AST 50 H (14-36) U/L ALT 27 (6-35) U/L Alkaline Phosphatase 84 (38-126) U/L Total Protein 8.7 H (6.3-8.2) g/dL Albumin 4.5 (3.5-5.1) g/dL Lipase 427 H (23-300) U/L Urine Color Yellow (Yellow) Urine Appearance Clear (Clear) Urine pH 5.0 (5.0-9.0) Ur Specific [place] 1.033 (1.001-1.035) Urine Protein Negative (Negative) mg/dL Urine Glucose (UA) Negative (Negative) mg/dL Urine Ketones Negative (Negative) mg/dL Ur Blood (Man) Negative (Negative) Urine Nitrate Negative (Negative) Urine Bilirubin Negative (Negative) Urine Urobilinogen 0.2 (<2.0) mg/dL Leukocyte Esterase Rfl Trace H (Negative) ASCENCION/UL Urine RBC 0-2 (0-2) /hpf Urine WBC 0-5 (0-3) /hpf Ur Squamous Epith Cells None seen (Few) /hpf Urine Bacteria None seen /hpf Urine Casts 3-5 Imaging Data Attestation: I personally reviewed and interpreted this imaging study as follows: My impression: Diffuse enterocolitis Critical Care Time Critical Care Time Critical Care Time: Yes Total Critical Care Time: 35 Discharge Plan Discharge Clinical Impression: Acute kidney injury, Enterocolitis, Acute dehydration Patient Disposition: Still a Patient Condition: Stable Time of Disposition: 06:50
--- OUTSIDE RECORDS SUMMARY | 2024-12-20 01:55 | XMS_ITS | Encounter Summary ---
Author Organization [facility] Healthcare Address [address] [place] [address] Care Team Providers Care Supervisor Home Restoration Service Name Role Phone Unavailable Primary Care Provider Unavailabl e Reason for Visit * Diagnostic Imaging (Routine) - Closed Specialty Diagnoses / Procedures Referred By Contac t Referred To Contact Procedures Breast Imaging Screening Outside Reference Referral, Self Referral ID Status Reason Start Date Expiration Date Visits Re quested Visits Authorized [id number] Closed 10/05/2022 11/04/2023 1 1 Encounter Details Date Type Department Care Team (Late st Contact Info) Description 09/15/2011 Hospital Encounter [facility] [address] [place] [id number] Social History Tobacco Use Types Packs/Day Years Used Date Smoking Tobacco: Never Passive Smoke Exposure: Past Smokeless Tobacco: Never Alcohol Use Standard Drinks/Week Comments Never 0 (1 standard drink = 0.6 oz pur e alcohol) [facility] Utilities Answer Date Recorded In the past 12 months has [email or web address], gas, oil, or water [employer] threatened to shut off services in your [...] answer 09/04/2023 How often do you attend [facility] or anabaptism services? Patient unable to answer 09/04/2023 Do you belong to any clubs o r organizations such as latter-day groups, unions, fraternal or athletic groups, or [...] place to sleep or slept in a chcf (including now)? 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 There will be no report generated by a [facility] Radiologist. Narrative RAD_MAMMO_[facility] - 10/05/2022 10:43 [...] C. difficile suspected 07/05/2023 07/05/2023 10:37 PM PALLIATIVE CARE PHYSICIAN COVID: Suspected 08/22/2023 08/22/2023 08/22/2023 5:03 PM CDT C. difficile suspected 08/22/2023 08/22/202308/22 3:06 AM CDT C. difficile suspected 09/01/2023 09/02/202309/04 3:05 AM CDT Norovirus suspected 09/01/2023 09/02/2023 09/05/19 3:05 AM CDT documented as of this encounter
--- OUTSIDE RECORDS SUMMARY | 2024-12-20 01:55 | XMS_ITS | Encounter Summary ---
Author Organization [facility] Healthcare Address [address] [place] [address] Care Team Providers Care Torque Tester Name Role Phone Fide Contreras MD Primary Care Provider Lorene Prince MD Unavailable [phone] Vinod Bird MD Unavailable Sandra Prieto Primary Care Provider [phone] Akhil Russo MD Primary Care Provider [phone] Mili Mcleod NP Unavailable Guillermina Stokes MD Unavailable Encounter Details Date Type Department Care Team (Late st Contact Info) Description 01/04/2021 Telephone [facility] Radiology [address] [place], [place] [id number] Lorene Prince MD [address] [place] [address] Social History Tobacco Use Types Packs/Day Years [...] on file 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 difficile suspected 07/05/2023 07/05/2023 10:37 PM CANVAS CUTTER MACHINE COVID: Suspected 08/22/2023 08/22/2023 08/22/2023 5:03 PM CDT C. difficile suspected 08/22/2023 08/22/202308/22 3:06 AM CDT C. difficile suspected 09/01/2023 09/02/202309/04 3:05 AM CDT Norovirus suspected 09/01/2023 09/02/2023 09/05/19 3:05 AM CDT documented as of this encounter Care Teams Torque Tester Relationship Specialty Start Date End Date Fide Contreras MD [address] [place] [address] PCP - General Family Medicine 01/01/19 11/15/21 Sandra Prieto PA [address] [place] [address] PCP - General Internal Medicine 11/16/21 11/28/21 Akhil Russo MD [address] [place] [address] PCP - General Family Medicine 11/29/21 Lorene Prince MD [address] [place] [address] Medical Oncologist/Hematologis t Medical Oncology 01/31/21 Vinod Bird MD [address] [place] [address] Consulting Physician Cardiovascular Disease 03/23/21 Mili Mcleod NP [address] [place] [address] Nurse Practitioner Cardiovascular Disease 07/18/22 Guillermina Stokes MD [address] [facility] [address] [address] Referring Physician Endocrinology Diabetes & Metabolism 08/20/23 documented as of this encounter
--- OUTSIDE RECORDS SUMMARY | 2024-12-20 01:55 | XMS_ITS | Continuity of Care Document ---
Author Organization [facility] Address [address] [place] [address] Phone Care Team Providers Care Motorcycle Engine Assembler Name Role Phone Jo PT, DPT, Belem Unavailable Unavaila ble Procedures Procedure Date Waive Cancel or No Show - No Charge Therapeutic Activities Neuromuscular Re-Ed Manual Therapy Therapeutic Exercise Electrical Stimulation Hot or Cold Pack Therapeutic Activities Neuromuscular Re-Ed Therapeutic Exercise Manual Therapy Hot or Cold Pack Electrical Stimulation Therapeutic Activities Neuromuscular Re-Ed Therapeutic Exercise Manual Therapy Electrical Stimulation Hot or Cold Pack Therapeutic Activities Neuromuscular Re-Ed Therapeutic Exercise Manual Therapy Hot or Cold Pack Electrical Stimulation PT Evaluation Moderate Complexity Therapeutic Activities Therapeutic Exercise Neuromuscular Re-Ed Manual Therapy Hot or Cold Pack Electrical Stimulation Advance Directives Directive Yes / No Effective Date File Name No Information Encounters Encounter Description Practice Location Reason(s) For Visit Diagnoses Date Provider Providers Copied on Encounter [facility], [facility], [place], [place], [id number], [place] tel:[phone] [place] No Information 5 Jo Patricia. . Referring Provider: Physician Screen. [facility] [address], [place], [place], [id number], tel:[phone] [place] No Information 9 Nini Govind. . [facility] [facility] [address], [place], [id number], tel:[phone] [place] No Information 9 Nini Faust. . [facility], [place], [place], [id number], tel:[phone] [place] No Information 9 Nini Faust. . [facility] [facility] [address], [place], [place], [id number], tel:[phone] [place] No Information 9 Nini Govind. . [facility] [facility] [address], [place], [place], [id number], tel:[phone] [place] No Information 9 Nini Govind. . Family History Family Member Type Diagnosis Age At Onset No Information Payers Payer name Insurance type Covered alliance party ID Authoriza tion(s) No Information Social [...]
--- OUTSIDE RECORDS SUMMARY | 2024-12-20 01:55 | XMS_ITS | Encounter Summary ---
Author Organization [facility] Healthcare Address [address] [place] [address] Care Team Providers Care Ultimate Hoops Referee Name Role Phone SureshLorene MD Unavailable [phone] Vinod Bird MD Unavailable Akhil Russo MD Primary Care Provider [phone] Mili Mcleod NP Unavailable Guillermina Stokes MD Unavailable Encounter Details Date Type Department Care Team (Late st Contact Info) Description 12/01/2021 Telephone [facility] [address] [facility] [address] [place] [address] Akhil Russo MD [address] [facility] [address] [place] [address] Social History Tobacco Use Types [...] on file Legal 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 difficile suspected 07/05/2023 07/05/2023 10:37 PM CHARGER TESTER COVID: Suspected 08/22/2023 08/22/2023 08/22/2023 5:03 PM CDT C. difficile suspected 08/22/2023 08/22/202308/22 3:06 AM CDT C. difficile suspected 09/01/2023 09/02/202309/04 3:05 AM CDT Norovirus suspected 09/01/2023 09/02/2023 09/05/19 3:05 AM CDT documented as of this encounter Care Teams Ultimate Hoops Referee Relationship Specialty Start Date End Date Akhil Russo MD [address] [place] [address] PCP - General Family Medicine 11/29/21 Lorene Prince MD Medical Oncologist/Hematologis t Medical Oncology 01/31/21 Vinod Bird MD Consulting Physician Cardiovascular Disease 03/23/21 Mili Mcleod NP [address] [place] [address] Nurse Practitioner Cardiovascular Disease 07/18/22 Guillermina Stokes MD [address] [address] Referring Physician Endocrinology Diabetes & Metabolism 08/20/23 documented as of this encounter
--- OUTSIDE RECORDS SUMMARY | 2024-12-20 01:55 | XMS_ITS | Encounter Summary ---
Author Organization [facility] Healthcare Address [address] [place] [address] Care Team Providers Care Nurse Transplant Name Role Phone Fide Contreras MD Primary Care Provider Reason for Visit * Diagnostic Imaging (Routine) - Closed Specialty Diagnoses / Procedures Referred By Yrn mei Referred To Contact Diagnoses Malignant neoplasm of left kidney (HCC) Malignant neoplasm of left kidney (HCC) Procedures Breast Imaging Screening Outside Reference Referral, Self Referral ID Status Reason Start Date Expiration Date Visits Re quested Visits Authorized [id number] Closed 10/05/2022 11/04/2023 1 1 Encounter Details Date Type Department Care Team (Late st Contact Info) Description 10/31/2019 Hospital Encounter [facility] [address] [place] [address] Social History Tobacco Use Types Packs/Day Years Used Date Smoking Tobacco: Never Passive Smoke Exposure: Past Smokeless Tobacco: Never Alcohol Use Standard Drinks/Week Comments Never 0 (1 standard drink = 0.6 oz pur e alcohol) [facility] Utilities Answer Date Recorded In the past 12 months has [facility] electric, gas, oil, or water company threatened [...] How often do you attend chur or jehovah's witness services? 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 There will be no report generated by a [facility] Radiologist. Narrative RAD_MAMMO_[facility] - 10/05/2022 10:41 AM [...] C. difficile suspected 07/05/2023 07/05/2023 10:37 PM EXHIBIT CLEANER COVID: Suspected 08/22/2023 08/22/2023 08/22/2023 5:03 PM CDT C. difficile suspected 08/22/2023 08/22/202308/22 3:06 AM CDT C. difficile suspected 09/01/2023 09/02/202309/04 3:05 AM CDT Norovirus suspected 09/01/2023 09/02/2023 09/05/19 3:05 AM CDT documented as of this encounter Care Teams Nurse Transplant Relationship Specialty Start Date End Date Fide Contreras MD [address] [facility] [address] [place] [address] PCP - General Family Medicine 01/01/19 11/15/21 documented as of this encounter
--- OUTSIDE RECORDS SUMMARY | 2024-12-20 01:55 | XMS_ITS | Encounter Summary ---
Author Organization [facility] Healthcare Address [address] [place] [address] Care Team Providers Care Finishing Machine Operator Automatic Name Role Phone Unavailable Primary Care Provider Unavailabl e Reason for Visit * Diagnostic Imaging (Routine) - Closed Specialty Diagnoses / Procedures Referred By Contac t Referred To Contact Procedures Breast Imaging Screening Outside Reference Referral, Self Referral ID Status Reason Start Date Expiration Date Visits Re quested Visits Authorized [id number] Closed 10/05/2022 11/04/2023 1 1 Encounter Details Date Type Department Care Team (Late st Contact Info) Description 01/27/2014 Hospital Encounter [facility] [address] [place] [id number] Social History Tobacco Use Types Packs/Day Years Used Date Smoking Tobacco: Never Passive Smoke Exposure: Past Smokeless Tobacco: Never Alcohol Use Standard Drinks/Week Comments Never 0 (1 standard drink = 0.6 oz pur e alcohol) [facility] Utilities Answer Date Recorded In the past 12 months has [employer], gas, oil, or water [employer] threatened to shut off services in your [...] you attend [facility] or confucianism services? 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 difficile suspected 08/22/2023 08/22/202308/22 3:06 AM CDT C. difficile suspected 09/01/2023 09/02/202309/04 3:05 AM CDT Norovirus suspected 09/01/2023 09/02/2023 09/05/19 3:05 AM CDT documented as of this encounter
--- OUTSIDE RECORDS SUMMARY | 2024-12-20 01:55 | XMS_ITS | Encounter Summary ---
Author Organization [facility] Address [address] [place] [address] Phone Care Team Providers Care Vp Ancillary Name Role Phone Lorene Prince MD Unavailable [phone] Akhil Russo MD Primary Care Provider [phone] RaterMili NP Unavailable Guillermina Stokes MD Unavailable Encounter Details Date Type Department Care Team (Late st Contact Info) Description 10/10/2022 Telephone [facility] ([facility]) - [facility] [address] [place] [address] [place] [id number] Goyo Salinas MD [address] [place] [address] Social History Tobacco Use Types Packs/Day Years [...] on file Legal Sex Female 8:31 AM [employer] Gender Identity Female 12/08/2020 1:45 PM [...] C. difficile suspected 07/05/2023 07/05/2023 10:37 PM [employer] COVID: Suspected 08/22/2023 08/22/2023 08/22/2023 5:03 PM CDT C. difficile suspected 08/22/2023 08/22/202308/22 3:06 AM CDT C. difficile suspected 09/01/2023 09/02/202309/04 3:05 AM CDT Norovirus suspected 09/01/2023 09/02/2023 09/05/19 3:05 AM CDT documented as of this encounter Care Teams Vp Ancillary Relationship Specialty Start Date End Date Akhil Russo MD [address] [place] [address] PCP - General Family Medicine 11/29/21 Lorene Prince MD Medical Oncologist/Hematologis t Medical Oncology 01/31/21 Mili Mcleod NP [address] [place] [address] Nurse Practitioner Cardiovascular Disease 07/18/22 Guillermina Stokes MD Formerly [facility] [address] [place] [address] Referring Physician Endocrinology Diabetes & Metabolism 08/20/23 documented as of this encounter
--- OUTSIDE RECORDS SUMMARY | 2024-12-20 01:55 | XMS_ITS | Clinical Summary ---
Author Organization [facility] Address [address] [place] [address] Care Team Providers Care Vehicle Safety Inspector Name Role Phone Lorene Prince MD Unavailable [phone] Akhil Russo MD Primary Care Provider [phone] Mili Mcleod NP Unavailable Guillermina Stokes MD Unavailable Allergies Active Allergy Reactions Criticality Noted Date Comments Ashby And Derivatives Diarrhea Low 01/09/2019 Codeine Hives [...] resolve. Assessment & Plan (04/05/2022 12:32 AM TECHNICAL ARCHITECT): - Pt c/o dehydration and lightheadedness on exam - CTH was unremarkable for any acute intracranial abnormalities. No orthostatis noted on exam - c/w LR @ 75 ml/hr Bacteriuria 04/05/2022 Assessment & Plan (04/05/2022 12:39 AM TECHNICAL ARCHITECT): - UA was + for LE and trace Bacteria, given immunocompromised status, will start on Cefepime IV 2g q12h pending cultures - Taper coverage based on c&s Headache 04/05/2022 Assessment & Plan (04/05/2022 12:40 AM TECHNICAL ARCHITECT): - Pt c/o intermittent headaches and lightheadedness on exam. Given hx of mets CTH was obtained which was unremarkable for any acute intracranial abnormalities. Seasonal allergies 04/05/2022 Assessment & Plan (04/05/2022 12:40 AM TECHNICAL ARCHITECT): - c/w Flonase nasal spray MARAVILLA (dyspnea on exertion) 04/05/2022 Assessment & Plan (04/05/2022 12:48 AM TECHNICAL ARCHITECT): - Pt c/o dyspnea on exertion , can likely be related to metastatic disease progression - EKG was unremarkable on admission while Trop and BNP were also WNL - TTE donw previously in 12/2020 was remarkable for LVEf of 54% with limited study - Plan to repeat TTE Diarrhea in adult patient 04/04/2022 Assessment & Plan (04/05/2022 12:37 AM TECHNICAL ARCHITECT): - Pt presented with worsening NB , [...] 11/30/2021 Assessment & Plan (03/19/2024 10:38 AM TECHNICAL ARCHITECT): A(n) yearly Medicare Annual Wellness Visit has [...] OK Assessment & Plan (07/08/2022 12:17 PM TECHNICAL ARCHITECT): TSH 0.17 uIU/ml, normal T4 Thyroid dosing has been adjusted, awaiting repeat Assessment & Plan (04/05/2022 12:34 AM TECHNICAL ARCHITECT): - c/w Synthroid 100 mcg po qam [...] zoloft Assessment & Plan (04/05/2022 12:37 AM TECHNICAL ARCHITECT): - c/w Sertraline 25 mg po every [...] -Total spine MRI was ordered in [facility] and completed --> Posterior T12 [...] -Total spine MRI was ordered in [facility] and completed, read pending -Will [...] 02/18/2021 Assessment & Plan (04/05/2022 12:34 AM TECHNICAL ARCHITECT): - Pt c/o worsening SOB which can [...] dehydration Assessment & Plan (07/08/2022 12:18 PM TECHNICAL ARCHITECT): Renal function decreased, GFR at 42 Creatinine 1.39 Advised on hydration Assessment & Plan (04/05/2022 12:34 AM TECHNICAL ARCHITECT): - c/w Toprol XL 50 mg po [...] recurrence. Assessment & Plan (04/05/2022 12:31 AM TECHNICAL ARCHITECT): - Pt was diagnosed with left renal [...] 07/18/2023 Assessment & Plan (04/05/2022 12:39 AM TECHNICAL ARCHITECT): - Pt has documented hx of PE, has been off AC for over 3 months Total perforation of left tympanic membrane 09/12/2021 02/10/2022 Overview (09/12/2021): Added automatically from request for surgery [id number] Left renal mass 01/03/2019 01/24/2019 Overview (01/03/2019): Added automatically from request for surgery [id number] Encounters Date Type Department Care Team Description 12/19/2024 Telephone [facility] Oncology [address] [place] [phone] Lorene Prince MD 12/18/2024 Orders Only [facility] Oncology [address] [place] [phone] Lorene Prince MD 12/18/2024 Telephone [facility] Oncology [address] [place] [phone] Lorene Prince MD 12/18/2024 Orders Only [facility] Oncology [address] [place] [phone] Lorene Prince MD 12/08/2024 11:15 AM CDT Office Visit [facility] Oncology [address] [place] [phone] Lorene Prince MD Malignant neoplasm of left kidney (CMS/HCC) (HCC) (Primary Dx); Secondary malignant neoplasm of left lung (HCC); Malignant neoplasm of left kidney (HCC) 12/08/2024 10:15 AM CDT Lab [facility] Oncology Lab [facility] Floor 5 [place] [address] Malignant neoplasm of left kidney (CMS/HCC) (HCC) 12/08/2024 10:00 AM CDT Lab [facility] - Lab Collection [facility] Floor [address] [place] [address] Malignant neoplasm of left kidney (CMS/HCC) (HCC) 11/26/2024 9:40 AM CDT Office Visit [facility] Orthopaedic Surgery [address] [facility] [address] Floor [address] [place] [address] Govind Yee MD Trigger finger of left thumb (Primary Dx); Arthritis of carpometacarpal (CMC) joint of right thumb 11/14/2024 1:15 PM CDT Office Visit [facility] Nephrology [address] [facility] 5th [place] [address] [place] [address] Dagoberto Dietrich MD Stage 3a chronic kidney disease (HCC) (Primary Dx); Persistent proteinuria; Malignant neoplasm of left kidney (CMS/HCC) (HCC); Primary hypertension; Hyperkalemia 11/11/2024 9:30 AM CDT Office Visit [facility] Cardiology [address] [facility] [address] Office [address] [place] [address] Monroe Pelletier MD Primary hypertension (Primary Dx); Mixed hyperlipidemia; 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; MARAVILLA (dyspnea on exertion); History of pulmonary embolism; Hypothyroidism due to medication; Malignant neoplasm of left kidney (CMS/HCC) (HCC); Diarrhea, unspecified type; Stage 3a chronic kidney disease (HCC); Secondary malignant neoplasm of left lung (HCC) 10/27/2024 1:45 PM CDT Lab [facility] [place] - Lab Collection [facility] Floor [address] [place] [address] Malignant neoplasm of left kidney (HCC); Secondary malignant neoplasm of left lung (HCC) 10/27/2024 1:00 PM CDT Office Visit [facility] Oncology [facility] Floor 5 [place] [address] Lupis Friend NP Malignant neoplasm of left kidney (CMS/HCC) (HCC) (Primary Dx); Secondary malignant neoplasm of left lung (HCC); Malignant neoplasm of left kidney (HCC) 10/27/2024 12:00 PM CDT Lab [facility] Oncology Lab [address] [facility] Floor 5 [place] [address] Malignant neoplasm of left kidney (CMS/HCC) (HCC) 10/27/2024 11:45 AM CDT Clinical Support [facility] - Lab Collection [address] [facility] Floor 5 [place] [address] Malignant neoplasm of left kidney (CMS/HCC) (HCC) 10/27/2024 9:53 AM CDT - 10/27/2024 11:59 PM CDT Hospital Encounter [facility] Radiology [facility] ([facility]) [address] [place] [phone] Lorene Prince MD Malignant neoplasm of left kidney (CMS/HCC) (HCC) Discharge Disposition: Discharge to home or self care 10/27/2024 Orders Only [facility] Oncology [address] [facility] Floor [address] [place] [address] Lupis Friend NP Malignant neoplasm of left kidney (HCC) (Primary Dx); Secondary malignant neoplasm of left lung (HCC) 10/23/2024 7:40 AM CDT - 10/23/2024 11:59 PM CDT Hospital Encounter [facility] Rad[facility] [address] [place] [address] Right knee pain, unspecified chronicity Discharge Disposition: Discharge to home or self care 10/23/2024 7:40 AM CDT Office Visit [facility] Orthopaedic Surgery [address] [facility] 1st Floor [address] [place] [address] Ezekiel Holbrook MD Right knee pain, unspecified chronicity; Primary osteoarthritis of right knee 10/22/2024 Telephone [facility] Organization [address] [place] [phone] Jennifer Rodas MA Chart Review (Med adherence ) 10/06/2024 Orders Only [facility] Medical [facility] Primary Care at [address] [phone] Akhil Russo MD 10/03/2024 Telephone [facility] Primary Care at [address] [phone] Akhil Russo MD Medical Question/Miscellaneous 09/25/2024 11:45 AM CDT Office Visit [facility] Primary Care at [address] [phone] Akhil Russo MD 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 Breast Imaging [facility] ([facility]) [address] [place] [address] Screening mammogram, encounter for Discharge Disposition: Discharge to home or self care 09/20/2024 Results Follow-Up [facility] Primary Care at [address] [phone] Akhil Russo MD Measles IgG [...] 1 Algene Clotting disorder Father's Brother 2 Cloud Hearing loss Maternal Grandmother Louise Agarwal Heart [...] drink = 0.6 oz pur e alcohol) [facility] Utilities Answer Date Recorded In the [...] do you attend [facility] or gnosticism services? Patient unable to answer 09/04/2023 Do you belong to any clubs o r organizations such as restoration groups, unions, fraternal or athletic groups, or [...] on file Legal Sex Female 8:31 AM TECHNICAL ARCHITECT Gender Identity Female 12/08/2020 1:45 PM [...] Malignant neoplasm of left kidney (CMS/HCC) (HCC) LA ARTHROCENTESIS ASPIR&/INJ SMALL JT/BURSA W/O US Routine 11/26/2024 9:40 AM CDT Arthritis of carpometacarpal (CMC) joint of right thumb LA INJECTION 1 TENDON SHEATH/LIGAMENT APONEUROSIS Routine 11/26/2024 [...] 07/26/2023 8:08 AM CDT Screening for osteoporosis care home (current) use of immunomodulator HIGH RISK HPV DNA DETECTION WITH GENOTYPING Routine 04/11/2023 1:[address] VIRTUAL COLONOSCOPY DIAGNOSTIC W CONTRAST IP [...] revised 2018. Creatinine Ur 145.7 mg/dL [facility] Comment: Interpretive Data No reference range established. Current interpretive data was last revised 2018. Protein/creatinin e ratio 111.2 0.0 - 180.0 mg/g CR [facility] Urine 12/08/2024 10:1 0 AM CDT 12/08/2024 10:23 AM CDT [facility] LAB URINE ORDERABLES Final Result Performing Organization Address City/[facility] Co de Phone Number [facility] Department [place] [address] * (ABNORMAL) eGFR (12/08/2024 10:00 AM CDT) [...] 0 AM CDT 12/08/2024 10:10 AM CDT [facility] Vasile Mcmillan [employer] LAB BLOOD ORDERABLES Final Result [facility] Department [place] [address] * Differential, auto (12/08/2024 10:00 AM CDT) Neutrophil abs 3.73 1.50 - 6.50 K/cumm Comment:Testing performed by : [facility], [address] [place] [phone] Lymphocyte abs 2.00 0.80 - 3.30 K/cumm [facility] Comment:Testing performed by : [facility], [address] [place] [phone] Monocyte abs 0.55 0.20 - 0.80 K/cumm CERNER [facility] Comment:Testing performed by : [facility], [address] [place] [phone] Eosinophil abs 0.08 0.00 - 0.50 K/cumm [facility] Comment:Testing performed by : [facility], [address] [place] [phone] Basophil abs 0.06 0.00 - 0.10 K/cumm [facility] Comment:Testing performed by : [facility], [address] [place] [phone] Neutrophil pct 58.1 % [facility] Comment: Interpretive Data Percent cell count reference ranges are not reported, since discordance with absolute values may lead to misinterpretation of CBC data. Current Interpretive Data was last revised on 2017. Testing performed by: [facility], [address] [place] [phone] Lymphocyte pct 31.2 % [facility] Comment: Interpretive Data Percent cell count reference ranges are not reported, since discordance with absolute values may lead to misinterpretation of CBC data. Current Interpretive Data was last revised on 2017. Testing performed by: [facility], [address] [place] [phone] Monocyte pct 8.5 % [facility] Comment: Interpretive Data Percent cell count reference ranges are not reported, since discordance with absolute values may lead to misinterpretation of CBC data. Current Interpretive Data was last revised on 2017. Testing performed by: [facility], [address] [place] [phone] Eosinophil pct 1.2 % [facility] Comment: Interpretive Data Percent cell count reference ranges are not reported, since discordance with absolute values may lead to misinterpretation of CBC data. Current Interpretive Data was last revised on 2017. Testing performed by: [facility], [address] [place] [phone] Basophil pct 1.0 % [facility] Comment: Interpretive Data Percent cell count reference ranges are not reported, since discordance with absolute values may lead to misinterpretation of CBC data. Current Interpretive Data was last revised on 2017. Testing performed by: [facility], [address] [place] [phone] Blood 12/08/2024 10:0 0 AM CDT 12/08/2024 10:08 AM CDT [facility] LAB BLOOD ORDERABLES Final Result [facility] Department [place] [address] * (ABNORMAL) Thyroid Function [place] (12/08/2024 10:00 AM CDT) Pathologist [facility] TSH 0.27(L) 0.30 - 4.20 mcIUnit/mL Blood 12/08/2024 10:0 0 AM CDT 12/08/2024 10:10 AM CDT [facility] [employer] LAB BLOOD ORDERABLES Final Result [facility] Department [place] [address] * (ABNORMAL) CBC with auto differential (12/08/2024 10:00 AM CDT) WBC 6.43 3.80 - 9.90 K/cumm Comment:Testing performed by : [facility], [address] [place], [place] [phone] Hgb 12.7 11.9 - 15.5 g/dL [facility] Comment:Testing performed by : [facility], [address] [place], [place] [phone] Hct 39.4 35.6 - 45.5 % [facility] Comment:Testing performed by : [facility], [address] [place], [place] [phone] Plt 204 150 - 400 K/cumm [facility] Comment:Testing performed by : [facility], [address] [place], [place] [phone] MPV 8.9 6.8 - 10.4 fL [facility] Comment:Testing performed by : [facility], [address] [place], [place] [phone] RBC 5.41(H) 3.90 - 5.20 M/cumm [facility] Comment:Testing performed by : [facility], [address] [place] [address] MCV 72.8(L) 81.3 - 96.4 fL [facility] Comment:Testing performed by : [facility], [address] [place], [place] [phone] MCH 23.5(L) 27.1 - 33.3 pg [facility] Comment:Testing performed by : [facility], [address] [place] [address] MCHC 32.4 32.3 - 35.7 g/dL [facility] Comment:Testing performed by : [facility], [address] [place] [address] RDW CV 20.2(H) 11.1 - 14.9 % [facility] Comment:Testing performed by : [facility], [address] [place] [address] NRBC abs 0.00 0.00 - 0.01 K/cumm [facility] Comment:Testing performed by : [facility], [address] [place] [phone] Blood 12/08/2024 10:0 0 AM CDT 12/08/2024 10:08 AM CDT [facility] [employer] LAB BLOOD ORDERABLES Final Result Performing Organization Address [facility] Co de Phone Number [facility] [place] [address] * Vitamin D 25 hydroxy (12/08/2024 10:00 AM CDT) Pathologist [facility] Vitamin D 25-OH 44 30 - 80 ng/mL Blood 12/08/2024 10:0 0 AM CDT 12/08/2024 10:10 AM CDT [facility] LAB BLOOD ORDERABLES Final Result Performing Organization Address [facility] [place] [address] * (ABNORMAL) T4, free (12/08/2024 10:00 AM CDT) Pathologist [facility] Free T4 1.79(H) 0.90 - 1.70 ng/dL Blood 12/08/2024 10:0 0 AM CDT 12/08/2024 10:10 AM CDT Narrative [facility] - 12/08/2024 11:11 AM CDT This test was reflexed from a TSH result. [facility] [employer] LAB BLOOD ORDERABLES Final Result Performing Organization Address [facility] [place] [address] * Lipid panel (12/08/2024 10:00 AM CDT) [facility] Cholesterol 154 30 - 199 mg/dL Comment: [...] revised on 2017. Triglycerides 104 <=149 mg/dL [facility] Comment: Interpretive Data Ages < [...] revised on 2017. HDL 65 >=40 mg/dL [facility] Comment: Interpretive Data Ages < [...] on 2017. LDL, calculated 70 <=129 mg/dL [facility] Comment: Interpretive Data Ages < [...] revised on 2023. Non-HDL Cholesterol 89 mg/dL [facility] Comment: Interpretive Data Ages < [...] last revised on 2017. Chol/HDL ratio 2 [facility] Blood 12/08/2024 10:0 0 AM CDT 12/08/2024 10:10 AM CDT us Lupis Friend NP LAB BLOOD ORDERABLES Final Result [facility] Department [place] [address] * (ABNORMAL) Comprehensive metabolic panel (12/08/2024 10:00 AM CDT) Sodium 142 135 - 145 mmol/L Potassium, pl 4.1 3.3 - 4.9 mmol/L [facility] Chloride 105 97 - 110 mmol/L [facility] CO2 27 22 - 32 mmol/L [facility] Anion gap 10 2 - 15 mmol/L [facility] BUN 18 6 - 25 mg/dL [facility] Creatinine 1.16(H) 0.60 - 1.10 mg/dL [facility] Glucose 100 70 - 199 mg/dL [facility] Comment: Interpretive Data Fasting glucose [...] 2022. Calcium 9.6 8.5 - 10.3 mg/dL [facility] Bilirubin, total 0.6 0.1 - 1.2 mg/dL [facility] Protein, pl 7.3 6.5 - 8.5 g/dL [facility] Albumin 4.0 3.5 - 5.0 g/dL [facility] Alk phos 72 40 - 130 Units/L [facility] ALT 15 7 - 45 Units/L [facility] AST 28 10 - 45 Units/L [facility] Blood 12/08/2024 10:0 0 AM CDT 12/08/2024 10:10 AM CDT Lupis Friend NP LAB BLOOD ORDERABLES Final Result [facility] Department [place] [address] * LA INJECTION 1 TENDON SHEATH/LIGAMENT APONEUROSIS (11/26/2024 9:40 [...] IN CLINIC/BEDSIDE ORDERABL ES Final Result * LA ARTHROCENTESIS ASPIR&/INJ SMALL JT/BURSA W/O US (11/26/2024 [...] Potassium, whole blood (10/27/2024 1:23 PM CDT) [facility] Potassium, bld 4.3 3.3 - 4.9 mmol/L Blood 10/27/2024 1:23 PM CDT 10/27/2024 1:41 PM CDT Result [facility] Lupis Friend NP LAB BLOOD ORDERABLES Final Result Performing Organization Address [facility] de Phone Number [facility] [place] [address] * AST (10/27/2024 1:23 PM CDT) [facility] AST 30 10 - 45 Units/L Blood 10/27/2024 1:23 PM CDT 10/27/2024 1:32 PM CDT Result [facility] LAB BLOOD ORDERABLES Final Result Performing Organization Address [facility] Phone Number [facility] [place] [address] * Protein / creatinine ratio, urine, random (10/27/2024 11:57 AM CDT) [facility] Protein, ur, quant 16.0 mg/dL Comment: Interpretive Data No reference range established. Current interpretive data was last revised 2018. Creatinine Ur 157.0 mg/dL [facility] Comment: Interpretive Data No reference range established. Current interpretive data was last revised 2018. Protein/creatinin e ratio 101.9 0.0 - 180.0 mg/g CR [facility] Urine 10/27/2024 11:5 7 AM CDT 10/27/2024 12:20 PM CDT us Lorene Prince MD LAB URINE ORDERABLES F inal Result Performing Organization Address [facility] Co de Phone Number [facility] [place] [address] * (ABNORMAL) eGFR (10/27/2024 11:42 AM CDT) [...] inal Result Performing Organization Address [facility] Co de Phone Number [facility] Department [place] [address] * Differential, auto (10/27/2024 11:42 AM CDT) Neutrophil abs 2.18 1.50 - 6.50 K/cumm Comment:Testing performed by : [facility], [address] [place] [phone] Lymphocyte abs 1.42 0.80 - 3.30 K/cumm [facility] Comment:Testing performed by : [facility], [address] [place], [place] [phone] Monocyte abs 0.30 0.20 - 0.80 K/cumm [facility] Comment:Testing performed by : [facility], [address] [place], [place] [id number] Eosinophil abs 0.07 0.00 - 0.50 K/cumm [facility] Comment:Testing performed by : [facility], [address] [place], [place] [phone] Basophil abs 0.03 0.00 - 0.10 K/cumm [facility] Comment:Testing performed by : [facility], [address] [place], [place] [phone] Neutrophil pct 54.5 % [facility] Comment: Interpretive Data Percent cell count reference ranges are not reported, since discordance with absolute values may lead to misinterpretation of CBC data. Current Interpretive Data was last revised on 2017. Testing performed by: [facility], [address] [place], [place] [phone] Lymphocyte pct 35.5 % [facility] Comment: Interpretive Data Percent cell count reference ranges are not reported, since discordance with absolute values may lead to misinterpretation of CBC data. Current Interpretive Data was last revised on 2017. Testing performed by: [facility], [address] [place], [place] [phone] Monocyte pct 7.6 % [facility] Comment: Interpretive Data Percent cell count reference ranges are not reported, since discordance with absolute values may lead to misinterpretation of CBC data. Current Interpretive Data was last revised on 2017. Testing performed by: [facility], [address] [place], [place] [phone] Eosinophil pct 1.8 % [facility] Comment: Interpretive Data Percent cell count reference ranges are not reported, since discordance with absolute values may lead to misinterpretation of CBC data. Current Interpretive Data was last revised on 2017. Testing performed by: [facility], [address] [place] [phone] Basophil pct 0.8 % [facility] Comment: Interpretive Data Percent cell count reference ranges are not reported, since discordance with absolute values may lead to misinterpretation of CBC data. Current Interpretive Data was last revised on 2017. Testing performed by: [facility], [address] [place] [phone] Blood 10/27/2024 11:4 2 AM CDT 10/27/2024 11:44 AM CDT Lorene Prince MD LAB BLOOD ORDERABLES F inal Result Performing Organization Address [facility] Co de Phone Number [facility] Department [place] [address] * Thyroid Function [place] (10/27/2024 11:42 AM CDT) TSH 0.33 0.30 - 4.20 mcIUnit/mL Blood 10/27/2024 11:4 2 AM CDT 10/27/2024 11:46 AM CDT Lorene Prince MD LAB BLOOD ORDERABLES F inal Result Performing Organization Address City/[facility] Co de Phone Number [facility] Department [place] [address] * (ABNORMAL) CBC with auto differential (10/27/2024 11:42 AM CDT) WBC 4.00 3.80 - 9.90 K/cumm Comment:Testing performed by : [facility], [address] [place] [phone] Hgb 11.9 11.9 - 15.5 g/dL [facility]ER Comment:Testing performed by : [facility], [address] [place], [place] [phone] Hct 36.7 35.6 - 45.5 % [facility] Comment:Testing performed by : [facility], [address] [place], [place] [phone] Plt 170 150 - 400 K/cumm CERNER [facility] Comment:Testing performed by : [facility], [address] [place], [place] [phone] MPV 8.6 6.8 - 10.4 fL [facility]ER [facility] Comment:Testing performed by : [facility], [address] [place], [place] [phone] RBC 5.08 3.90 - 5.20 M/cumm CERNER [facility] Comment:Testing performed by : [facility], [address] [place], [place] [phone] MCV 72.3(L) 81.3 - 96.4 fL CERNER [facility]J Comment:Testing performed by : [facility], [address] [place], [place] [phone] MCH 23.4(L) 27.1 - 33.3 pg CERNER [facility] Comment:Testing performed by : [facility], [address] [place] [address] MCHC 32.3 32.3 - 35.7 g/dL [facility]ER [facility] Comment:Testing performed by : [facility], [address] [place] [address] RDW CV 19.3(H) 11.1 - 14.9 % [facility]ER [facility] Comment:Testing performed by : [facility], [address] [place] [address] NRBC abs 0.00 0.00 - 0.01 K/cumm CERNER [facility]J Comment:Testing performed by : [facility], [address] [place], [place] [phone] Blood 10/27/2024 11:4 2 AM CDT 10/27/2024 11:44 AM CDT us Lorene Prince MD LAB BLOOD ORDERABLES F inal Result Performing Organization Address City/[facility] Co de Phone Number MOIRA PIPER [facility] [place] [address] * Vitamin D 25 hydroxy (10/27/2024 11:42 AM CDT) Vitamin D 25-OH 40 30 - 80 ng/mL Blood 10/27/2024 11:4 2 AM CDT 10/27/2024 11:46 AM CDT Lorene Prince MD LAB BLOOD ORDERABLES F inal Result Performing Organization Address [facility] Co de Phone Number [facility] [place] [address] * Lipid panel (10/27/2024 11:42 AM CDT) [...] revised on 2017. Triglycerides 117 <=149 mg/dL [facility] Comment: Interpretive Data Ages < [...] on 2017. HDL 56 >=40 mg/dL [facility] Comment: Interpretive Data Ages < or = [...] 2017. LDL, calculated 63 <=129 mg/dL [facility] Comment: Interpretive Data Ages < or = [...] revised on 2023. Non-HDL Cholesterol 84 mg/dL [facility] Comment: Interpretive Data Ages < or = [...] last revised on 2017. Chol/HDL ratio 3 [facility] Blood 10/27/2024 11:4 2 AM CDT 10/27/2024 11:46 AM CDT Lorene Prince MD LAB BLOOD ORDERABLES F inal Result [facility] One [facility] Department [place] [address] * (ABNORMAL) Comprehensive metabolic panel (10/27/2024 11:42 AM CDT) Sodium 138 135 - 145 mmol/L Potassium, pl 5.9(H) 3.3 - 4.9 mmol/L [facility] Comment:Hemolyzed; Potassium value may be falsely elevated by as much as 0.6-1.0 mmol/L. Suggest redraw and reanalysis. Chloride 106 97 - 110 mmol/L [facility] CO2 25 22 - 32 mmol/L [facility] Anion gap 7 2 - 15 mmol/L [facility] BUN 15 6 - 25 mg/dL [facility] Creatinine 1.11(H) 0.60 - 1.10 mg/dL [facility] Glucose 88 70 - 199 mg/dL [facility] Comment: Interpretive Data Fasting glucose [...] 2022. Calcium 9.3 8.5 - 10.3 mg/dL [facility] Bilirubin, total 0.6 0.1 - 1.2 mg/dL [facility] Protein, pl 7.0 6.5 - 8.5 g/dL [facility] Albumin 3.8 3.5 - 5.0 g/dL [facility] Alk phos 66 40 - 130 Units/L [facility] ALT 18 7 - 45 Units/L [facility] AST See Comment 10 - 45 Units/L [facility] Comment:Credited; Hemolyzed Specimen Blood 10/27/2024 11:4 2 AM CDT 10/27/2024 11:46 AM CDT us Lorene Prince MD LAB BLOOD ORDERABLES F inal Result [facility] Department [place] [address] * CT Chest Abdomen Pelvis W Contrast [...] POCT ORDERABLES - DEVICE Final Result [facility] [place] [address] * XR Knee Right 3 View [...] right knee osteoarthritis. Electronically signed by: Nazario Cehn M.D. Ezekiel Holbrook MD IMG XR PROCEDURES [...] compared to prior imaging studies performed at [facility] on 10/31/2019, and at [facility] on 09/19/2022 and 10/04/2023. There are [...] compared to prior imaging studies performed at [facility]. [facility] on 10/31/2019, [facility] on 09/19/2022 and 10/04/2023. There are scattered [...] and children were not included. (Diabetes Care 31:3866-2095, 2008). The eAG is not equivalent to a fasting glucose. 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 MF: JOVAN Report ID: [id number] Reading Location: [place] [address] Akhil Russo MD IMG DXA PROCEDURES Final Re sult * High Risk HPV DNA Detection with Genotyping (Molecular component) (04/11/2023 1:41 PM TECHNICAL ARCHITECT) HPV HR 16 Not Detected Not Detected [facility] Comment:Testing performed by : [facility], [address] [place]., [address] HPV HR 18 Not Detected Not Detected [facility] Comment:Testing performed by : [facility], [address] [place]., [address] HPV HR Non 16/18 Not Detected Not Detected [facility] Comment: Interpretive Data Nucleic acid [...] this test have been verified by the [facility] Molecular Infectious Disease laboratory. Correlate with separately reported cytology results, as applicable. Interpretive data last revised 22 Testing performed by: [facility], [address] [place] [address]., [address] Endocervical 04/11/2023 1:41 PM TECHNICAL ARCHITECT 04/12/2023 3:01 PM TECHNICAL ARCHITECT us Akhil Russo MD LAB BODY FLUIDS AND STOOLS ORDERABLES Final Result [facility] [address] Department [place] [address] * CT Colonography Diagnostic W Contrast (07/22/2021 [...] 01/03/2021 12:16 PM CDT us Carmen Fish BLOCKER AND CUTTER [facility] LAB MICROBIOLOGY - GENER AL ORDERABLES Edited Result - Final [facility] [place] [address] from Last 3 Months or Most Recently Relevant to Health Maintenance Insurance MEDICARE RESEARCH [facility] MEDICARE ADVANTAGE [facility] MEDICARE ADVANTAGE [facility] MEDICARE ADVANTAGE UHC MEDICARE ADVANTAGE [facility] MEDICARE ADVANTAGE Advance Directives For more information, please contact: [phone] * Full Code (Latest Code Status on [...] 5:18 PM 02/21/2021 4:10 PM Care Teams Vehicle Safety Inspector Relationship Specialty Start Date End Date Akhil Russo MD [address] [place] [address] PCP - General Family Medicine 11/29/21 Lorene Prince MD Medical Oncologist/Hematologis t Medical Oncology 01/31/21 Mili Mcleod NP [address] [place] [address] Nurse Practitioner Cardiovascular Disease 07/18/22 Guillermina Stokes MD [address] [address] Referring Physician Endocrinology Diabetes & Metabolism 08/20/23
--- OUTSIDE RECORDS SUMMARY | 2024-12-20 01:55 | XMS_ITS | Encounter Summary ---
Author Organization [facility] Address [address] [place] [address] Phone Care Team Providers Care Barrel Cutter Name Role Phone Lorene Prince MD Unavailable [phone] Akhil Russo MD Primary Care Provider [phone] Mili Mcleod NP Unavailable Guillermina Stokes MD Unavailable Encounter Details Date Type Department Care Team (Late st Contact Info) Description 12/19/2024 Telephone [facility] Oncology [address] [facility] Floor 5 [place] [address] Lorene Prince MD [address] [place] [address] Social History Tobacco Use Types Packs/Day Years Used Date Smoking Tobacco: Never Passive Smoke Exposure: Past Smokeless Tobacco: Never Alcohol Use Standard Drinks/Week Comments Never 0 (1 standard drink = 0.6 oz pur e alcohol) [facility] Utilities Answer Date Recorded In the past 12 months has [employer], gas, oil, or water company threatened [...] How often do you attend chur or rastafari services? Patient unable to answer 09/04/2023 Do you belong to any clubs o r organizations such as zoroastrian groups, unions, fraternal or athletic groups, or [...] on file Legal Sex Female 8:31 AM DECORATIVE GREENS CUTTER Gender Identity Female 12/08/2020 1:45 PM CDT [...] on filedocumented in this encounter Care Teams Barrel Cutter Relationship Specialty Start Date End Date Akhil Russo MD [address] [place] [address] PCP - General Family Medicine 11/29/21 Lorene Prince MD Medical Oncologist/Hematologis t Medical Oncology 01/31/21 Mili Mcleod NP [address] [place] [address] Nurse Practitioner Cardiovascular Disease 07/18/22 Guillermina Stokes MD [address] [address] Referring Physician Endocrinology Diabetes & Metabolism 08/20/23 documented as of this encounter
--- OUTSIDE RECORDS SUMMARY | 2024-12-20 01:55 | XMS_ITS | Continuity of Care Document ---
Author Organization [facility] Address [address] [place] [address] Phone Care Team Providers Care Jailer/Training Officer Name Role Phone Marcie Artis MD Unavailable [...] Diagnoses Date Provider Providers Copied on Encounter [facility], [address], [place], [place], [id number] , [place] tel:[phone] [facility] No Information Jan- 1 Steff Jack. [address], [address], [place], [place], [id number], [place]. tel:[phone] [employer], [address], [place], [place], [address] , [place] tel: [phone] [facility] CHEST PAIN NOS Jul- 6-200 3 Steff Jack. [address] , [address], [place], [place], [address], [place]. tel:[phone] [employer], [address], [place], [place], [address] , [place] tel: [phone] [facility] ALLERGIC RHINITIS NOSPARALYSIS AGITANSINSOMNIA NOSDEPRESSIVE DISORDER NECEXTRINSIC ASTHMA NOS 5200 3 Conversion Doctor. [address] [place] [address], [address], [place]. [employer], [address], [place], [place], [address] , tel: [phone] [facility] ANXIETY STATE NOSSCREEN LIPOID DISORDERSSCREEN- DIABETES MELLITUSMALAISE AND FATIGUE NEC 7200 3 Steff Jack. [address] , [address], [place], [place], [address], [place]. tel:[phone] Family History Family Member Type Diagnosis Age [...]
--- OUTSIDE RECORDS SUMMARY | 2024-12-20 01:55 | XMS_ITS | Continuity of Care Document ---
Author Organization [employer] Address [address] [facility] [address] [place] [address] Phone Care Team Providers Care Farmer Cash Grain Name Role Phone Jo PT, KRISHNAT, Belem [...] on Encounter [facility], [address] [facility] [address], [place], [place], [id number], [place] tel:[phone] [place] No Information Osorio Belem. . Referring Provider: Ezekiel Jerez, [address] [facility] 2nd Floor [address], [place], [address]. tel:[phone] [place] [address] [address] [facility] [address], [place], [place], [id number], [place] tel:[phone] [place] No Information Osorio Belem. . Referring Provider: Ezekiel Jerez, [address] [place] [address] [address] Floor [address], [place], [address]. tel:[phone] [place] [address] [address] [facility] [address], [place], [place], [id number], [place] tel:[phone] [place] No Information Osorio Belem. . Referring Provider: Ezekiel Jerez, [id number] [place] [address] [address] Floor [address], [place], [address]. tel:[phone] [place], [place] [address] [facility] [address], [place], [place], [id number], [place] tel:[phone] [place] No Information Osorio Belem. . Referring Provider: Ezekiel Jerez, [address] [facility] 2nd Floor [address], [place], [address]. tel:[phone] [place] [address] [address] [facility] [address], [place], [place], [address], [place] tel:[phone] [place] Unilateral primary osteoarthriti s, right kneePain in right kneeMuscle weakness (generalized) 5 Osorio Belem. . Referring Provider: Ezekiel Holbrook, [address] [facility] 2nd Floor [address], [place], [address]. tel:[phone] [facility], [address] [place] [address] [address], [place], [place], [id number], tel:[phone] [place] No Information 5 Osorio Belem. . Referring Provider: Ezekiel Jerez, [address] [facility] 2nd Floor [address], [place], [address]. tel:[phone], [place], [place], [address], [place] tel:[phone] [place] No Information 5 Osorio Belem. . Referring Provider: Ezekiel Jerez, [address] [place] [address] [address] Floor [address], [place], [address]. tel:[phone] [facility], [address] [place] [address] [address], [place], [place], [id number], [place] tel:[phone] [place] No Information 5 Sandi Philip. . Referring Provider: Ezekiel Jerez, [address] [facility] 2nd Floor [address], [place], [address]. tel:[phone], [place], [place], [address], [place] tel:[phone] [place] No Information 5 Osorio Belem. . Referring Provider: Ezekiel Jerez, [address] [facility] 2nd Floor [address], [place], [address]. tel:[phone] Family History Family Member Type Diagnosis Age At Onset No Information Payers Payer name Insurance type Covered republican ID Franka philly(s) [facility] CI [id number] Social History Type Description Quantity Date Captured [...]
--- OUTSIDE RECORDS SUMMARY | 2024-12-20 01:55 | XMS_ITS ---
Author Organization [facility] Address [address] [place] [address] Care Team Providers Care Nail Making Machine Setter Name Role Phone Lorene Prince MD Unavailable [phone] Akhil Russo MD Primary Care Provider [phone] Mili Mcleod NP Unavailable Guillermina Stokes MD Unavailable [phone] Active Problems Problem Noted Date Diagnosed Date [...] resolve. Assessment & Plan (04/05/2022 12:32 AM GROUND PRODUCTS DIRECTOR): - Pt c/o dehydration and lightheadedness on exam - CTH was unremarkable for any acute intracranial abnormalities. No orthostatis noted on exam - c/w LR @ 75 ml/hr Bacteriuria 04/05/2022 Assessment & Plan (04/05/2022 12:39 AM GROUND PRODUCTS DIRECTOR): - UA was + for LE and trace Bacteria, given immunocompromised status, will start on Cefepime IV 2g q12h pending cultures - Taper coverage based on c&s Headache 04/05/2022 Assessment & Plan (04/05/2022 12:40 AM GROUND PRODUCTS DIRECTOR): - Pt c/o intermittent headaches and lightheadedness on exam. Given hx of mets CTH was obtained which was unremarkable for any acute intracranial abnormalities. Seasonal allergies 04/05/2022 Assessment & Plan (04/05/2022 12:40 AM GROUND PRODUCTS DIRECTOR): - c/w Flonase nasal spray MARAVILLA (dyspnea on exertion) 04/05/2022 Assessment & Plan (04/05/2022 12:48 AM GROUND PRODUCTS DIRECTOR): - Pt c/o dyspnea on exertion , can likely be related to metastatic disease progression - EKG was unremarkable on admission while Trop and BNP were also WNL - TTE donw previously in 12/2020 was remarkable for LVEf of 54% with limited study - Plan to repeat TTE Diarrhea in adult patient 04/04/2022 Assessment & Plan (04/05/2022 12:37 AM GROUND PRODUCTS DIRECTOR): - Pt presented with worsening NB , [...] 11/30/2021 Assessment & Plan (03/19/2024 10:38 AM GROUND PRODUCTS DIRECTOR): A(n) yearly Medicare Annual Wellness Visit has [...] OK Assessment & Plan (07/08/2022 12:17 PM GROUND PRODUCTS DIRECTOR): TSH 0.17 uIU/ml, normal T4 Thyroid dosing has been adjusted, awaiting repeat Assessment & Plan (04/05/2022 12:34 AM GROUND PRODUCTS DIRECTOR): - c/w Synthroid 100 mcg po qam [...] zoloft Assessment & Plan (04/05/2022 12:37 AM GROUND PRODUCTS DIRECTOR): - c/w Sertraline 25 mg po every [...] 02/18/2021 Assessment & Plan (04/05/2022 12:34 AM GROUND PRODUCTS DIRECTOR): - Pt c/o worsening SOB which can [...] dehydration Assessment & Plan (07/08/2022 12:18 PM GROUND PRODUCTS DIRECTOR): Renal function decreased, GFR at 42 Creatinine 1.39 Advised on hydration Assessment & Plan (04/05/2022 12:34 AM GROUND PRODUCTS DIRECTOR): - c/w Toprol XL 50 mg po [...] recurrence. Assessment & Plan (04/05/2022 12:31 AM GROUND PRODUCTS DIRECTOR): - Pt was diagnosed with left renal [...] Treatment Medications Discontinue Reason Plan Provider Cycles [id number] [facility] [id number] Part 1 Arm A Nivolumab + Bempegaldesleukin + Axitinib 01/18/20 21 07/24/[address] (/ [id number]) Nivolumab/BMS -[id number] IVPB in 50 mLINV-[facility]_ H (/ [id number]) NKTR-214 (BEMPEGALDESL EUKIN) IVPB in 50 mL () INV-[facility] axitinib (/ [id number]) Progressive Disease Lorene Prince MD 24 of [...] 07/18/2023 Assessment & Plan (04/05/2022 12:39 AM GROUND PRODUCTS DIRECTOR): - Pt has documented hx of PE, has been off AC for over 3 months Total perforation of left tympanic membrane 09/12/2021 02/10/2022 Overview (09/12/2021): Added automatically from request for surgery [id number] Left renal mass 01/03/2019 01/24/2019 Overview (01/03/2019): Added automatically from request for surgery [id number]
--- OUTSIDE RECORDS SUMMARY | 2024-12-20 01:55 | XMS_ITS | Encounter Summary ---
Author Organization [facility] Address [address] [place] [address] Phone Care Team Providers Care Paleontological Helper Name Role Phone Lorene Prince MD Unavailable [phone] Akhil Russo MD Primary Care Provider [phone] Mili Mcleod NP Unavailable Guillermina Stokes MD Unavailable [phone] Encounter Details Date Type Department Care Team (Latest Contact Info) Description 07/12/2024 Orders Only [facility] ONCOLOGY Scanning, Provider Social History Tobacco Use Types Packs/Day Years Used Date Smoking Tobacco: Never Passive Smoke Exposure: Past Smokeless Tobacco: Never Alcohol Use Standard Drinks/Week Comments Never 0 (1 standard drink = 0.6 oz pur e alcohol) [facility] Utilities Answer Date Recorded In the past 12 months has [employer], gas, oil, or water [employer] threatened to shut off services in [...] often do you attend [facility] or zoroastrianism services? Patient unable to answer 09/04/2023 Do you belong to any clubs o r organizations such as yarsanism groups, unions, fraternal or athletic groups, or [...] Legal Sex Female 8:31 AM DIRECTOR OF PRECLINICAL RESEARCH Gender Identity Female 12/08/2020 1:45 PM CDT [...] on filedocumented in this encounter Care Teams Paleontological Helper Relationship Specialty Start Date End Date Akhil Russo MD [address] [place] [address] PCP - General Family Medicine 11/29/21 Lorene Prince MD Medical Oncologist/Hematologis t Medical Oncology 01/31/21 Mili Mcleod NP [address] [place] [address] Nurse Practitioner Cardiovascular Disease 07/18/22 Guillermina Stokes MD [address] [facility] [address], [place] [address] Referring Physician Endocrinology Diabetes & Metabolism 08/20/23 documented as of this encounter
[2024-12-20] MEDS: ONDANSETRON INJ 4 MG/2 ML VIAL IV PUSH ×3 (02:00→15:58)
--- NOTE | 2024-12-20 02:07 | PC.NURSE ---
Patient has had 2 loose liquid BMs using bedside commode.
[2024-12-20 02:11] LABS: Alanine Aminotransferase 27 U/L (6-35); Albumin Level 4.5 g/dL (3.5-5.1); Alkaline Phosphatase 84 U/L (38-126); Anion Gap 16 mmol/L (4-12); Aspartate Amino Transferase 50 U/L (14-36); Bilirubin,Total 1.2 mg/dL (0.2-1.3); Blood Urea Nitrogen 13 mg/dL (7-17); Calcium 9.9 mg/dL (8.4-10.2); Carbon Dioxide 16 mmol/L (22-30); Chloride 107 mmol/L (98-107); Estimated CRCL calculation 32 ml/min; Estimated Glomerular Filt Rate 39; Glucose 169 mg/dL (65-110); Lipase 427 U/L (23-300); Potassium 3.5 mmol/L (3.4-5.0); Sodium 139 mmol/L (137-145); Total Protein 8.7 g/dL (6.3-8.2)
[2024-12-20 02:12] LABS: Band Neutrophils Percent 0 % (0-6)
[2024-12-20 02:13] LABS: Anisocytosis 1+; Ovalocytes 1+; Poikilocytosis 1+; Schistocytes None Seen
--- NOTE | 2024-12-20 03:58 | PC.NURSE ---
Patient aware of need for urine sample, patient a/ox4. Declines straight cath.
--- NOTE | 2024-12-20 05:16 | PC.NURSE ---
Patient is tough stick, [facility], and RNs attemtped. Unsuccessful for repeat lactic. senior cobol developer notified and called phlebotomy.
[2024-12-20 05:23] LABS: Add Urine Microscopic? YES; Appearance Urine Clear (Clear); Glucose Urine UA Negative (Negative); Leukocyte Esterase Ur Trace LEU/UL (Negative); Nitrate Urine Negative (Negative); Specific Grav Ur 1.033 (1.001-1.035)
--- NOTE | 2024-12-20 05:41 | ECG_ITS ---
Test Date: 2024-12-20 06:03:11 Measurements Intervals [place] Rate: 93 P: 40 SD: 172 QRS: 7 QRSD: 89 T: 83 QT: 346 QTc: 431 Interpretive Statements SINUS RHYTHM CONSIDER INFERIOR INFARCT, AGE INDETERMINATE MODERATE T-WAVE ABNORMALITY, CONSIDER ANTERIOR ISCHEMIA ABNORMAL ECG Compared to ECG 12/18/2024 10:16:08 T-wave abnormality now present Possible ischemia now present Electronically Signed On 12-20-2024 07:26:18 CDT by Ryan Farfan D.O.
[2024-12-20] MEDS: CIPROFLOXACIN 400 MG/D5W 200ML 200 ML 200 MG IVPB (05:47)
--- OUTSIDE RECORDS SUMMARY | 2024-12-20 07:14 | XMS_ITS | Continuity of Care Document ---
Author Organization [facility] Address [address] [place] [address] Phone Care Team Providers Care Grizzly Worker Name Role Phone Jo PT, DPT, Belem [...] Provider Providers Copied on Encounter [facility], [facility] [address], [place], [place], [id number], [place] tel:[phone] [place] No Information 5 Jo Patricia. . Referring Provider: Physician Screen. [facility] [address], [place], [place], [address], tel:[phone] [place] No Information 9 Nini Govind. . [facility] [facility] [address], [place], [address], tel:[phone] [place] No Information 9 Nini Faust. . [facility] [facility] [address], [place], [place], [address], tel:[phone] [place] No Information 9 Nini Faust. . [facility] [facility] [address], [place], [place], [address], tel:[phone] [place] No Information 9 Nini Govind. . [facility] [facility] [address], [place], [place], [address], tel:[phone] [place] No Information 9 Nini Govind. . Family [...]
--- OUTSIDE RECORDS SUMMARY | 2024-12-20 07:14 | XMS_ITS | Continuity of Care Document ---
Author Organization [facility] Address [address] [facility] [address] [place] [address] Phone Care Team Providers Care Fuel Oil Truck Driver Name Role Phone Jo PT, KRISHNAT, Belem [...] Diagnoses Date Provider Providers Copied on Encounter [facility], [address] [facility] [address], [place], [place], [address], [place] tel:[phone] [place] No Information Osorio Belem. . Referring Provider: Ezekiel Jerez, [address] [facility] [address], [place], [address]. tel:[phone] [place] [address] [address] [facility] [address], [place], [place], [address], [place] tel:[phone] [place] No Information Osorio Belem. . Referring Provider: Ezekiel Jerez, [address] [place] [address] [address] Floor [address], [place], [address]. tel:[phone] [place] [address] [address] [facility] [address], [place], [place], [address], [place] tel:[phone] [place] No Information Osorio Belem. . Referring Provider: Ezekiel Jerez, [address] [place] [address] [address] Floor [address], [place], [address]. tel:[phone] [place], [place] [id number] [facility] [address], [place], [address], [place] tel:[phone] [place] No Information Osorio Eblem. . Referring Provider: Ezekiel Jerez, [address] [facility] [address], [place], [address]. tel:[phone] [place] [address] [address] [facility] [address], [place], [place], [address], [place] tel:[phone] [place] Unilateral primary osteoarthriti s, right kneePain in right kneeMuscle weakness (generalized) 5 Osorio Belem. . Referring Provider: Ezekiel Holbrook, [address] [facility] [address], [place], [address]. tel:[phone] [facility], [address] [place] [address] [address], [place], [place], [address], tel:[phone] [place] No Information 5 Osorio Belem. . Referring Provider: Ezekiel Jerez, [address] [facility] [address], [place], [address]. tel:[phone], [place], [place], [address], [place] tel:[phone] [place] No Information 5 Osorio Belem. . Referring Provider: Ezekiel Jerez, [address] [place] [address] [address], [place], [address]. tel:[phone] [facility], [address] [place] [address] [address], [place], [place], [address], [place] tel:[phone] [place] No Information 5 Sandi Philip. . Referring Provider: Ezekiel Jerez, [address] [facility] [address], [place], [address]. tel:[phone], [place], [place], [address], [place] tel:[phone] [place] No Information 5 Osorio Belem. . Referring Provider: Ezekiel Jerez, [address] [facility] [address], [place], [address]. tel:[phone] Family History Family Member Type Diagnosis Age At Onset No Information Payers Payer name Insurance type Covered republican ID Franka philly(s) [facility] CI [id number] Social History Type Description Quantity Date Captured [...]
--- OUTSIDE RECORDS SUMMARY | 2024-12-20 07:14 | XMS_ITS | Continuity of Care Document ---
Author Organization [facility] Address [address] [place] [address] Phone Care Team Providers Care Veneer Repairer Machine Name Role Phone Marcie Artis MD Unavailable [...] on Encounter [facility], [address], [place], [place], [address] , [place] tel:[phone] [facility] No Information Jan- 1 Steff Jack. [address], [address], [place], [place], [address], [place]. tel:[phone] [employer] [facility], [address], [place], [place], [address] , [place] tel: [phone] [facility] CHEST PAIN NOS Jul- 6-200 3 Steff Jack. [address] , [address], [place], [place], [address], [place]. tel:[phone] [facility] [facility], [address], [place], [place], [address] , [place] tel: [phone] [facility] ALLERGIC RHINITIS NOSPARALYSIS AGITANSINSOMNIA NOSDEPRESSIVE DISORDER NECEXTRINSIC ASTHMA NOS 5200 3 [facility] [facility]. [address] [place] [address], [address], [place]. [employer] [facility], [address], [place], [place], [address] , tel: [phone] [facility] ANXIETY STATE NOSSCREEN LIPOID DISORDERSSCREEN- DIABETES MELLITUSMALAISE AND FATIGUE NEC 7200 3 Steff Jack. [address] , [address], [place], [place], [address], [place]. tel:[phone] Family History Family Member Type Diagnosis Age At Onset No Information Payers Payer name Insurance type Covered democrat ID Authoriza tion(s) No Information Social History [...]
--- NOTE | 2024-12-20 09:11 | P.HP_ITS ---
H&P: HPI History of Present Illness Date/Time: 12/20/24 09:11 Chief Complaint: Vomiting and diarrhea Narrative: Patient is a 64-year-old female past medical history of hypertension, Metastatic renal carcinoma and lung cancer status post nephrectomy in remission presented to the ER on account of Nausea, vomiting and diarrhea of 4 days duration. Patient had presented to the emergency department the day prior and received IV fluids and antiemetics with relief however after returning home she attempted to eat and became nauseous and vomited again currently unable to tolerate any oral intake. Patient this time around endorsed abdominal pain as well an alleged mildly hypotensive in the emergency department. Patient denied any chest pain, shortness a breath, dizziness. In the ED: In the ED CT abdomen colon consistent with nonspecific diarrhea, small sliding hiatal hernia with chronic mild dilation of the common bile with elevated AST and lipase. Patient's BP soft with systolics in the 80s but resp onded well to IV fluids given. Creatinine was elevated at 1.35. Review of Systems Review of Systems: All other systems were reviewed and negative except as noted in the history above. All systems reviewed & are unremarkable except as noted in HPI and below PMFSH Past Medical History Medical History Metastatic renal cell carcinoma to lung Vitamin D deficiency Hypertension Allergic asthma Surgical History Surgical History History of arthroscopic knee surgery History of cholecystectomy History of left nephrectomy (01/2019) Family History Family History Father Family history of blood dyscrasia, Onset Age: 68 Family history of heart disease in male family member before age 55 Patient's father is Asthma Mother Family history of elevated blood lipids Family history of diabetes mellitus in first degree relative Hypertension Diabetes mellitus Sibling Asthma Diabetes mellitus Family history of sickle cell trait Multiple sclerosis Lupus Hypertension Grandparent Family history of malignant neoplasm of breast Family history of blood dyscrasia Social History Social History Social History: Surrogate decision maker: Sha Condon, son. Code status: Full code. Smoking status: Never smoker Second hand tobacco smoke exposure: No Alcohol intake: never Substance use: never Substance use type: does not use Do You Feel Safe in your Home?: Yes Lack of Transportation: No Lack of Food: Never True Current Housing: I Have Housing Concerned About Future Housing: No Difficulty Paying Gas/Electric Bills: No Difficulty Paying for Meds: No Currently Unemployed: No Education: Associate Degree Difficulty w/ Childcare or Family Care: No Living arrangements: with family Occupation/Education: unemployed Additional occupation/education comments: On disability. Gender identity (if verbalized by the patient): Female Sexual Orientation (if Verbalized by the Patient): Straight or Heterosexual Spiritual care concerns: No Meds Home Medications and Allergies Home Medications ?Medication ?Instructions ?Recorded ?Confirmed ?Type cetirizine 10 mg tablet 10 mg PO DAILY 02/23/20 12/20/24 History Daily Multi-Vitamin 1 tablet PO DAILY 05/15/21 12/20/24 History Inlyta 5 mg PO DAILY 05/15/21 12/20/24 History acetaminophen 650 mg PO Q6-8H PRN Pain 05/15/21 12/20/24 History levothyroxine 25 mcg tablet 25 mcg PO DAILY 05/15/21 12/20/24 History (Synthroid) tramadol 50 mg tablet 50 mg PO Q6H PRN pain #30 tabs 09/23/21 12/20/24 Rx cyclobenzaprine 7.5 mg tablet 7.5 mg PO TID PRN muscle spasm #90 09/27/21 12/20/24 Rx tabs sertraline 25 mg tablet 25 mg PO BID #180 tabs 09/27/21 12/20/24 Rx amlodipine 5 mg tablet (Norvasc) 5 mg PO DAILY 07/12/24 12/20/24 History lenvatinib 8 mg/day (4 mg x 2) 8 mg PO DAILY 07/12/24 12/20/24 History capsule (Lenvima) diphenoxylate-atropine 2.5 1 tablet PO TID PRN diarrhea #30 12/18/24 12/20/24 Rx mg-0.025 mg tablet (Lomotil) tabs metoclopramide HCl 10 mg tablet 10 mg PO Q6H PRN nausea and 12/18/24 12/20/24 Rx (Reglan) vomiting #30 tabs Allergies Allergy/AdvReac Type Severity Reaction Status Date / Time codeine Allergy Severe Hives Verified 12/20/24 02:06 Penicillins Allergy Severe Hives Verified 12/20/24 02:06 Sulfa (Sulfonamide Allergy Severe Hives Verified 12/20/24 02:06 Antibiotics) lactase (From Dairy Aid) Allergy Migraine Verified 12/20/24 02:06 Tyronza And Derivatives AdvReac Intermediate Migraine Verified 12/20/24 02:06 egg AdvReac Intermediate Migraine Verified 12/20/24 02:06 egg yolk AdvReac Intermediate Migraine Verified 12/20/24 02:06 fish derived AdvReac Intermediate Migraine Verified 12/20/24 02:06 milk AdvReac Intermediate Migraine Verified 12/20/24 02:06 nut - unspecified AdvReac Intermediate Migraine Verified 12/20/24 02:06 Vital Signs Vital Signs - 24 hr 12/20/24 01:29 12/20/24 01:39 12/20/24 01:40 Temperature 97.6 F Pulse Rate 112 H 109 H 115 H Respiratory Rate 20 Blood Pressure 111/72 115/82 85/68 L Pulse Oximetry 97 Oxygen Delivery Room Air 12/20/24 01:42 12/20/24 01:50 12/20/24 02:16 Temperature Pulse Rate 126 H Respiratory Rate Blood Pressure 91/53 L Pulse Oximetry 100 100 Oxygen Delivery 12/20/24 02:33 12/20/24 03:04 12/20/24 03:15 Temperature Pulse Rate Respiratory Rate Blood Pressure Pulse Oximetry 100 100 95 Oxygen Delivery 12/20/24 03:19 12/20/24 03:30 12/20/24 03:45 Temperature Pulse Rate 100 Respiratory Rate 17 Blood Pressure 123/81 Pulse Oximetry 100 100 98 Oxygen Delivery 12/20/24 04:00 12/20/24 04:01 12/20/24 04:15 Temperature Pulse Rate Respiratory Rate Blood Pressure 126/74 Pulse Oximetry 98 97 97 Oxygen Delivery 12/20/24 04:30 12/20/24 04:45 12/20/24 05:03 Temperature Pulse Rate Respiratory Rate Blood Pressure Pulse Oximetry 97 97 100 Oxygen Delivery 12/20/24 05:15 12/20/24 06:36 12/20/24 07:23 Temperature 98.8 F Pulse Rate 96 97 107 H Respiratory Rate 17 17 18 Blood Pressure 105/67 101/57 L Pulse Oximetry 98 97 99 Oxygen Delivery Exam Narrative: General: alert and comfortable Eyes: EOMI, PERRLA ENNT External ears normal, Neck is supple, no masses, Respiratory systems: Clear to auscultation Cardiovascular S1, S2, normal rhythm, no murmur, rub, or gallop; no thrill or palpable murmurs on palpation. Gastrointestinal: soft, tender, and non-distended abdomen with no masses; BS present Skin: no rash, lesions, ulcerations, subcutaneous nodules or induration Musculoskeletal: no abnormality and no tenderness, normal ROM Neurologic: Alert and oriented x3, non focal Mental Status Exam: normal affect H&P: Results Labs Labs: Short CBC 12/20/24 Range/Units 01:43 WBC 7.6 (4.5-10.0) K/mm3 Hgb 13.4 (12.0-15.0) g/dL Hct 45.4 (37.0-47.0) % Plt Count 155 (150-375) k/mm3 BMP 12/20/24 01:43 Sodium 139 Potassium 3.5 Chloride 107 Carbon Dioxide 16 L BUN 13 Creatinine 1.35 H Glucose 169 H Calcium 9.9 Liver Function 12/20/24 Range/Units 01:43 Total Bilirubin 1.2 (0.2-1.3) mg/dL AST 50 H (14-36) U/L ALT 27 (6-35) U/L Alkaline Phosphatase 84 (38-126) U/L Albumin 4.5 (3.5-5.1) g/dL Urine 12/20/24 Range/Units 05:11 Urine Color Yellow (Yellow) Urine Appearance Clear (Clear) Urine pH 5.0 (5.0-9.0) Ur Specific Albers 1.033 (1.001-1.035) Urine Protein Negative (Negative) mg/dL Urine Glucose (UA) Negative (Negative) mg/dL Assessment and Plan Assessment and plan (1) Hypotension: Code(s): I95.9 - Hypotension, unspecified Status: Acute Assessment and Plan: Patient presented with ongoing nausea combined be hypotensive in the emergency department secondary to severe dehydration head improvement with IV fluids received in the ER. * Admitted to IMU for closer monitoring of BP if remains stable can likely transfer to medical unit * Resumed IV fluids * Holding patient's amlodipine (2) Gastroenteritis: Code(s): K52.9 - Noninfective gastroenteritis and colitis, unspecified Status: Acute Assessment and Plan: Patient with N/V/D * Continue IV fluids * Patient immunocompromised received Cipro and Flagyl in the emergency department transition to Rocephin and p.o. Flagyl * Resume diet and advance as tolerated * Antiemetics of Karen Rider on board * C-diff pending * Stool cultures (3) Elevated liver enzymes: Code(s): R74.8 - Abnormal levels of other serum enzymes Status: Acute Assessment and Plan: CT ABD: Chronic mild dilation of the common bile duct without intrahepatic biliary ductal dilation likely related to prior cholecystectomy. Correlate with liver function tests. elevated lipase and AST * trend liver function and lipase * if they worsen my need to consult GI (4) Acute kidney injury: Code(s): N17.9 - Acute kidney failure, unspecified Status: Acute Assessment and Plan: Patient with acute kidney injury secondary to dehydration from nausea and vomiting creatinine 1.35 * Continue IV fluids * Follow-up renal function in the a.m. * Avoid nephrotoxins (5) Metastatic renal cell carcinoma to lung: Code(s): C78.00 - Secondary malignant neoplasm of unspecified lung; C64.9 - Malignant neoplasm of unspecified kidney, except renal pelvis Status: Acute Assessment and Plan: Patient follows with Oncology at [facility] * Resume patient's oral Inlyta and Lenvima she will need to bring from home (6) Hypertension: Qualifiers: Hypertension type: primary hypertension Qualified Code(s): I10 - Essential (primary) hypertension Code(s): I10 - Essential (primary) hypertension Status: Acute Assessment and Plan: Patient with history of hypertension but was hypotensive due to dehydration * Holding patient's amlodipine 10 will resume when BP tolerates Plan Code status: Full code per patient DVT prophylaxis: SCDs Stress ulcer prophylaxis: NA PT/OT notes: Ambulatory Disposition: Patient continue admission for hypotension secondary to in/B/D with gastroenteritis and FARHANA. Patient ambulatory plan will be to return home discharge. Quality VTE Prophylaxis VTE prophylaxis: mechanical ordered -Patient's previous records reviewed on admission -ER notes reviewed in detail on admission -discussed all findings and current treatment plan with patient/Family/POA -Consultations reviewed for recommendations -Patient's disposition for safe discharge discussed with insurance case manager Dictation performed by [employer] direct speech recognition software, therefore fretted instrument maker hand variants and typographical errors may occur. Hospitalist SYBIL Advance Care Plan I have confirmed that the patient's Advanced Care Plan is present, code status is documented, or surrogate decision maker is listed in patient medical record.: Yes Medication Reconciliation I have utilized all available resources to obtain, update and review the patients current medications (includes all prescriptions, OTC, herbals, cannabis, and nutritional supplements).: Yes The patient is not eligible for med reconciliation; the patient is in a emergent medical situation where delaying treatment would jeopardize the patients health.: No
[2024-12-20 09:38] LABS: Magnesium 1.7 mg/dL (1.6-2.3)
[2024-12-20] MEDS: ACETAMINOPHEN 325 MG TABLET 650 MG PO ×2 (09:52→18:34)
[2024-12-20] MEDS: cefTRIAXone 1 GM in SODIUM CHLORIDE 0.9% IV 50 ML 100 ML IVPB (09:53)
[2024-12-20] MEDS: SERTRALINE HCL 25 MG TABLET PO ×2 (09:53→21:53)
[2024-12-20] MEDS: LORATADINE 10 MG TABLET PO (09:53)
[2024-12-20] MEDS: metroNIDAZOLE 500 MG/ISO 100ML 500 MG/100 ML BAG 100 MG IVPB (09:53)
[2024-12-20] MEDS: LACTATED RINGERS 1,000 ML 100 ML IV CONT ×2 (12:43→21:53)
[2024-12-20 14:44] LABS: Toxigenic C. Diff NEGATIVE (NEGATIVE)
--- NOTE | 2024-12-20 15:44 | PC.NURSE ---
This patient, Jailyn Condon, was transferred to [facility] on 12/20/24 at 1542. Personal belongings sent with patient. Report given to Rossy GALLARDO. Appropriate documentation sent with patient.
[2024-12-20] MEDS: METOCLOPRAMIDE HCL 10 MG TABLET PO (18:26)
[2024-12-21] MEDS: LACTATED RINGERS 1,000 ML 100 ML IV CONT (05:04)
[2024-12-21] MEDS: LEVOTHYROXINE SODIUM 88 MCG TABLET PO (05:05)
[2024-12-21] MEDS: ACETAMINOPHEN 325 MG TABLET 650 MG PO (05:05)
[2024-12-21 06:57] LABS: Alanine Aminotransferase 16 U/L (6-35); Albumin Level 2.9 g/dL (3.5-5.1); Alkaline Phosphatase 49 U/L (38-126); Anion Gap 6 mmol/L (4-12); Aspartate Amino Transferase 33 U/L (14-36); Bilirubin,Total 0.8 mg/dL (0.2-1.3); Blood Urea Nitrogen 9 mg/dL (7-17); Calcium 8.4 mg/dL (8.4-10.2); Carbon Dioxide 21 mmol/L (22-30); Chloride 110 mmol/L (98-107); Estimated CRCL calculation 41 ml/min; Estimated Glomerular Filt Rate 54; Glucose 89 mg/dL (65-110); Magnesium 1.6 mg/dL (1.6-2.3); Potassium 3.4 mmol/L (3.4-5.0); Sodium 137 mmol/L (137-145); Total Protein 5.6 g/dL (6.3-8.2)
[2024-12-21 06:59] VITALS: BP 126/65; PULSE 79; RESP 16; TEMP 36.6; O2SAT 99
[2024-12-21 07:24] LABS: Hematocrit 33.0 % (37.0-47.0); Hemoglobin 10.3 g/dL (12.0-15.0); Immature Granulocyte Percent A 0.3 % (0-0.5); Immature Platelet Fraction Pct 8.1 % (0.9-11.2); Lymphocytes Absolute Auto 1.55 K/mm3 (0.9-3.2); Mean Corpuscular HGB Conc 31.2 g/dl (32-36); Mean Corpuscular Hemoglobin 23.6 pg (26-34); Mean Corpuscular Volume 75.7 fl (80-100); Nucleated Red Blood Cells Absolute Auto 0.000 K/mm3 (0.0-0.012); Nucleated Red Blood Cells Perc 0.0 % (0.0-0.2); Platelet Count Result 114 k/mm3 (150-375); Red Blood Count 4.36 M/mm3 (4.2-5.4); White Blood Count 5.8 K/mm3 (4.5-10.0)
[2024-12-21] MEDS: cefTRIAXone 1 GM in SODIUM CHLORIDE 0.9% IV 50 ML 100 ML IVPB (09:24)
[2024-12-21] MEDS: LORATADINE 10 MG TABLET PO (09:25)
[2024-12-21] MEDS: SERTRALINE HCL 25 MG TABLET PO (09:25)
[2024-12-21] MEDS: ONDANSETRON INJ 4 MG/2 ML VIAL IV PUSH (09:46)
[2024-12-21] MEDS: POTASSIUM CHLORIDE 20 MEQ PACKET (FOR LIQUID) 40 MEQ PO (11:40)
--- NOTE | 2024-12-21 12:34 | P.DS_ITS ---
DS: Admitting Diagnosis Discharge Date 12/21/2024 Admitting Diagnosis Gastroenteritis/hypotension/dehydration DS: Discharge Diagnosis Discharge Diagnosis (1) Hypotension: Code(s): I95.9 - Hypotension, unspecified Status: Acute (2) Gastroenteritis: Code(s): K52.9 - Noninfective gastroenteritis and colitis, unspecified Status: Acute (3) Elevated liver enzymes: Code(s): R74.8 - Abnormal levels of other serum enzymes Status: Acute (4) Acute kidney injury: Code(s): N17.9 - Acute kidney failure, unspecified Status: Acute (5) Metastatic renal cell carcinoma to lung: Code(s): C78.00 - Secondary malignant neoplasm of unspecified lung; C64.9 - Malignant neoplasm of unspecified kidney, except renal pelvis Status: Acute (6) Hypertension: Qualifiers: Hypertension type: primary hypertension Qualified Code(s): I10 - Essential (primary) hypertension Code(s): I10 - Essential (primary) hypertension Status: Acute DS: Summary Hospital Course Reason for hospitalization: Gastroenteritis/hypotension/dehydration/FARHANA Hospital Course: Admission: Patient is a 64-year-old female past medical history of hypertension, Metastatic renal carcinoma and lung cancer status post nephrectomy in remission presented to the ER on account of Nausea, vomiting and diarrhea of 4 days duration. Patient had presented to the emergency department the day prior and received IV fluids and antiemetics with relief however after returning home she attempted to eat and became nauseous and vomited again currently unable to tolerate any oral intake. Patient this time around endorsed abdominal pain as well an alleged mildly hypotensive in the emergency department. Patient denied any chest pain, shortness a breath, dizziness. In the ED: In the ED CT abdomen colon consistent with nonspecific diarrhea, small sliding hiatal hernia with chronic mild dilation of the common bile with elevated AST and lipase. Patient's BP soft with systolics in the 80s but responded well to IV fluids given. Creatinine was elevated at 1.35. Hospital Course: This patient was admitted to the medical unit started on IV fluids initially received IV Cipro and Flagyl in the emergency department transition to IV Rocephin and oral Flagyl. Patient with mild FARHANA creatinine elevated to 1.35 continue to advance diet as tolerated and provide antiemetics including Zofran and Reglan patient reporting Zofran does not work. Patient remained afebrile with normal WBC is able to advance diet without further vomiting and diarrhea was improving. Patient had renal recovery creatinine at 1.03 following day and was tolerating oral intake with just mild nausea. Initially with hypotension on admission but improved with IV fluids held her amlodipine and recommended she hold until her diet fully returns. Patient was discharged home on antiemetics oral antibiotic therapy for enteritis and had previous prescriptions for Reglan and Lomotil from previous ER visits. Status at Discharge Functional status at discharge: independent ambulation Overall status at discharge: patient is progressing back to baseline Time Spent with Patient Time attestation: Total time spent providing and/or coordinating discharge services: Time spent: Greater than 30 minutes Exam Narrative: General: alert and comfortable Eyes: EOMI, PERRLA ENNT External ears normal, Neck is supple, no masses, Respiratory systems: Clear to auscultation Cardiovascular S1, S2, normal rhythm, no murmur, rub, or gallop; no thrill or palpable murmurs on palpation. Gastrointestinal: soft, tender, and non-distended abdomen with no masses; BS present Skin: no rash, lesions, ulcerations, subcutaneous nodules or induration Musculoskeletal: no abnormality and no tenderness, normal ROM Neurologic: Alert and oriented x3, non focal Mental Status Exam: normal affect DS: Data Data Completed and Pending Labs on day of discharge: Labs from last 24 hours 12/21/24 12/21/24 12/20/24 06:45 06:15 11:00 WBC 5.8 RBC 4.36 Hgb 10.3 L D Hct 33.0 L MCV 75.7 L MCH 23.6 L MCHC 31.2 L RDW 19.6 H Plt Count 114 L MPV TNP Immature Gran % (Auto) 0.3 Neut % (Auto) 65.6 Lymph % (Auto) 26.8 [place] % (Auto) 5.9 Eos % (Auto) 1.2 Baso % (Auto) 0.2 Lymph # (Auto) 1.55 [place] # (Auto) 0.3 Eos # (Auto) 0.1 Baso # (Auto) 0.0 Abs Immat Gran (auto) 0.02 Absolute Neuts (auto) 3.8 Absolute Nucleated RBC 0.000 Nucleated RBC % 0.0 % Immature Plt Fraction 8.1 Sodium 137 Potassium 3.4 Chloride 110 H Carbon Dioxide 21 L Anion Gap 6 BUN 9 Creatinine 1.03 H Estim Creat Clear Calc 41 Estimated GFR 54 L Glucose 89 Calcium 8.4 Magnesium 1.6 Total Bilirubin 0.8 AST 33 ALT 16 Alkaline Phosphatase 49 Total Protein 5.6 L Albumin 2.9 L C. difficile (PCR) Negative Imaging Radiologist's impression: XAMINATION: CT abdomen pelvis w con DATE: 12/20/2024 03:08 INDICATION: Nausea and vomiting TECHNIQUE: Computed tomography (CT) of the abdomen and pelvis was performed with 100 mL Omnipaque-350 intravenous contrast. Automated exposure control and iterative reconstruction technique were employed. The dose-length product was 746.21 mGy-cm. COMPARISON: 07/12/2024 FINDINGS: Lung bases are clear. Heart size normal. No pericardial or pleural effusion. Small sliding-type hiatal hernia. Common bile duct is dilated to 12 mm likely related to prior cholecystectomy with surgical clips the gallbladder fossa. Liver is normal with no intrahepatic biliary ductal dilation. Postoperative change of prior left nephrectomy and likely left adrenalectomy with multiple surgical clips at the operative bed. Spleen, pancreas, right adrenal gland and kidney are normal. Bladder is normal. A few uterine fibroids, compatible with some peripheral calcification. Fluid throughout the normal colon consistent with nonspecific diarrhea. Small bowel and appendix are normal. No free intraperitoneal gas or fluid. No pathologically enlarged abdominal or pelvic lymphadenopathy. Mild lumbar levocurvature with mild spondylosis. IMPRESSION: 1. Fluid throughout the colon consistent with nonspecific diarrhea. 2. Small sliding-type hiatal hernia. 3. Chronic mild dilation of the common bile duct without intrahepatic biliary ductal dilation likely related to prior cholecystectomy. Correlate with liver function tests. 4. Fibroid uterus. Discharge Plan Discharge Attending physician on discharge: Jony Del Toro Consulting providers: Karyna Choudhury Discharging Clinician: Karyna Choudhury Anticipated Discharge Date/Time: 12/21/24 12:21 Patient Disposition: Home Activity: may shower and as tolerated Diet: as tolerated Discharge Instructions: 1). Gastroenteritis/colitis * Encourage activity and diet as tolerated recommend small meals * I have prescribed Augmentin to complete an antibiotic therapy for colitis take as prescribed * Anti emetics have been prescribed including Reglan which have been sent in from her previous visit department * Follow-up with your oncologist as scheduled How can you care for yourself at home? ? Keep track of any new symptoms or changes in your symptoms. ? Rest until you feel better. ? Be safe with medicines. Take your medicines exactly as prescribed. Call your doctor if you think you are having a problem with your medicine. ? Do not drive after taking a prescription pain medicine. ? Ensure to follow-up with primary care physician as indicated and provide updated medication list provided to you at discharge. When should you call for help? Call 911 anytime you think you may need emergency care. For example, call if: ? You passed out (lost consciousness). Call your doctor now or seek immediate medical care if: ? You have new symptoms like fever, difficulty breathing, Chest pain, vomiting, or rash. ? You have new or different pain. ? You are confused and are having trouble thinking clearly. ? Your symptoms are getting worse. Watch closely for changes in your health, and be sure to contact your doctor if: ? You do not get better as expected. Patient Instructions: Antibiotic Form, Gastroenteritis (DC), Acute Nausea and Vomiting (DC), Colitis (ED) Patient Language: Burmese Stand Alone Forms: General Discharge Information Follow-up/Referrals: Rafaela,Akhil Rockwell MD [Primary Care Provider] - 2 Weeks Discharge Medications: New levofloxacin 750 mg tablet 750 mg PO DAILY Qty: 5 0RF metronidazole 500 mg tablet 500 mg PO Q8H Qty: 15 0RF Continued sertraline 25 mg tablet 25 mg PO BID Qty: 180 1RF cyclobenzaprine 7.5 mg tablet 7.5 mg PO TID PRN (Reason: muscle spasm) Qty: 90 0RF levothyroxine [Synthroid] 25 mcg tablet 25 mcg PO DAILY Patient Comments: 88MCG DAILY Daily Multi-Vitamin 1 tablet PO DAILY Inlyta 5 mg PO DAILY Patient Comments: Cancer medication, patient takes 5 days a week, not on weekends. acetaminophen 650 mg PO Q6-8H PRN (Reason: Pain) Lenvima 8 mg/day (4 mg x 2) capsule 8 mg PO DAILY Rx Instructions: TAKES [id number] cetirizine 10 mg Tablet 10 mg PO DAILY Patient Comments: Alternates monthly with haile. Currently taking zyrtec for the month of December. metoclopramide HCl [Reglan] 10 mg tablet 10 mg PO Q6H PRN (Reason: nausea and vomiting) Qty: 30 0RF diphenoxylate-atropine [Lomotil] 2.5-0.025 mg tablet 1 tablet PO TID PRN (Reason: diarrhea) Qty: 30 0RF tramadol 50 mg tablet 50 mg PO Q6H PRN (Reason: pain) Qty: 30 0RF Held amlodipine [Norvasc] 5 mg tablet 5 mg PO DAILY Hold Instructions: Resume on 12/28/24. Until your diet fully returns Date of admission: 12/20/24 05:52 Primary Care Provider: Rafaela,Akhil Rockwell Admitting Provider: Leia Licea Attending physician on admission: Leia Licea Condition: Stable Quality VTE Prophylaxis VTE prophylaxis: mechanical ordered -Patient's previous records reviewed on admission -ER notes reviewed in detail on admission -discussed all findings and current treatment plan with patient/Family/POA -Consultations reviewed for recommendations -Patient's disposition for safe discharge discussed with case repairer Dictation performed by [employer] direct speech recognition software, therefore course instructor variants and typographical errors may occur. Hospitalist MIPS Heart Failure (Exclusion) Patient has history of Heart Transplant or Left Ventricular Assistive Device?: No IF YES, STOP HERE Heart Failure (Qualifier) Patient has current or prior documentation of LVEF less than or equal to 40%, or mod/servere depressed LVSF?: No IF NO, STOP HERE
[2024-12-21] MEDS: LOPERAMIDE HCL 2 MG CAPSULE 4 MG PO (13:46)
== END 2024-12-21 14:20 | disposition home or self-care (01) ==
LOC: ANHED 01:53 → ANHIMU 07:19 → ANH3MEDSUR 12-21 12:27 → ANHIMU 12-23 07:23
PROVIDERS: Nurse Practitioner Family; Admitting Provider Family Medicine; Emergency Provider Student in an Organized Health Care Education/Training Program; PCP Family Medicine; Visit Provider General Practice
DX: K52.9 Noninfective gastroenteritis and colitis, unspecified (principal); I95.9 Hypotension, unspecified; R74.8 Abnormal levels of other serum enzymes; N17.9 Acute kidney failure, unspecified; K44.9 Diaphragmatic hernia without obstruction or gangrene; E55.9 Vitamin D deficiency, unspecified; I10 Essential (primary) hypertension; Z85.528 Personal history of other malignant neoplasm of kidney; Z85.118 Personal history of other malignant neoplasm of bronchus and lung; Z90.5 Acquired absence of kidney
CPT/HCPCS: 36415; 74177; 80053; 81001; 83605; 83690; 83735; 85025; 85055; 87040; 87045; 87046; 87427; 87493; 93005; 96361; 96374; 96375; 96376; 99285; A9270; G0378; J0696; J0744; J1836; J2405; J7120; Q9967

== ENCOUNTER 2025-03-07 23:10 | Emergency (ER) | payer MEDICARE, SELFPAY ==
--- OUTSIDE RECORDS SUMMARY | 2011-09-15 | XMS_ITS | Encounter Summary ---
Author Organization [facility] Healthcare Address [address] [place] [address] Care Team Providers Care Sales Representative Marine Supplies Name Role Phone Unavailable Primary Care Provider Unavailabl e Reason for Visit * Diagnostic Imaging (Routine) - Closed Specialty Diagnoses / Procedures Referred By Yrn mei Referred To Contact Procedures Breast Imaging Screening Outside Reference Referral, Self Referral ID Status Reason Start Date Expiration Date Visits Re quested Visits Authorized [id number] Closed 10/05/2022 11/04/2023 1 1 Encounter Details Date Type Department Care Team (Late st Contact Info) Description 09/15/2011 Hospital Encounter [facility] [address] [place] [address] Social History Tobacco Use Types Packs/Day Years Used Date Smoking Tobacco: Never Passive Smoke Exposure: Past Smokeless Tobacco: Never Alcohol Use Standard Drinks/Week Comments Never 0 (1 standard drink = 0.6 oz pur e alcohol) Social Connection and Isolation Panel Answer Date Recorded In a typical week, how many times do you talk on the phone with family, friends, or neighbors? Patient unable to answer 09/04/2023 How often do you get togethe r with friends or relatives? Patient unable to answer 09/04/2023 How often do you attend chur or uatsdin services? Patient unable to answer 09/04/2023 Do you belong to any clubs o r organizations such as shinto groups, unions, fraternal or athletic groups, or school groups? Patient unable to answer 09/04/2023 How often do you attend meet ings of the clubs or organizations you belong to? Patient unable to answer 09/04/2023 Are you , , di vorced, , never , or living with a partner? Patient unable to answer 09/04/2023 AUDIT-C Answer Date Recorded Q1: How often do you have a drink containing alcohol? Never 01/21/2024 Q2: How many drinks containi ng alcohol do you have on a typical day when you are drinking? Patient does not drink Q3: How often do you have si x or more drinks on one occasion? Never 01/21/2024 Overall Financial Resource Strain (CARDIA) Answe r Date Recorded How hard is it for you to pa y for the very basics like food, housing, medical care, and heating? Patient unable to answer 09/04/2023 PHQ-2 Answer Date Recorded PHQ-2 Total Score (If total score is 3 or more points, staff should administer the PHQ-9) 0 01/23/2025 PRAPARE - Transportation Answer Date Re corded In the past 12 months, has l ack of transportation kept you from medical appointments or from getting medications? Patient unable to answer 09/04/2023 In the past 12 months, has l ack of transportation kept you from meetings, work, or from getting things needed for daily living? Patient unable to answer 09/04/2023 Housing Stability Vital Sign Answer Fabrizio e Recorded In the last 12 months, was t here a time when you were not able to pay the mortgage or rent on time? Patient unable to answer 09/04/2023 In the last 12 months, how m any places have you lived? 0 09/04/2023 In the last 12 months, was t here a time when you did not have a steady place to sleep or slept in a halfway (including now)? Patient unable to answer 09/04/2023 PHQ-9 Answer Date Recorded PHQ-9 Total Score 20 07/18/2023 Social Connection and Isolation Panel Answer Date Recorded In a typical week, how many times do you talk on the phone with family, friends, or neighbors? More than three times a week 01/16/2025 How often do you get togethe r with friends or relatives? More than three times a week 01/16/2025 How often do you attend chur ch or uatsdin services? 1 to 4 times per year 01/16/2025 Do you belong to any clubs o r organizations such as shinto groups, unions, fraternal or athletic groups, or school groups? Yes 01/16/2025 How often do you attend meet ings of the clubs or organizations you belong to? More than 4 times per year 01/16/2025 Are you , , di vorced, , never , or living with a partner? 01/16/2025 Overall Financial Resource Strain (CARDIA) Answe r Date Recorded How hard is it for you to pa y for the very basics like food, housing, medical care, and heating? Somewhat hard 01/16/2025 Hunger Vital Sign Answer Date Recorded Within the past 12 months, y ou worried that your food would run out before you got the money to buy more. Never true 01/17/20 25 Within the past 12 months, t he food you bought just didn't last and you didn't have money to get more. Never true 01/16/2025 PRAPARE - Transportation Answer Date Re corded In the past 12 months, has l ack of transportation kept you from medical appointments or from getting medications? No 01/05 In the past 12 months, has l ack of transportation kept you from meetings, work, or from getting things needed for daily living? No 01/16/2025 Housing Stability Vital Sign Answer Fabrizio e Recorded In the last 12 months, was t here a time when you were not able to pay the mortgage or rent on time? No 01/16/2025 In the past 12 months, how m any times have you moved where you were living? 0 01/16/2025 At any time in the past 12 m [facility], were you homeless or living in a halfway (including now)? No 01/16/2025 [facility] Utilities Answer Date Recorded In the past 12 months has th e electric, gas, oil, or water company threatened to shut off services in your home? No 01/16/2025 Personal Safety Answer Date Recorded Have you ever been in or are you currently in a harmful physical or emotional relationship or is someone making you feel afraid or unsafe? 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 Never 01/21/2024 9:51 AM CDT Nikole Vega RN Q2: How many drinks containing alcohol do you have on a typical day when you are drinking? Patient does not drink 01/21/2024 9:51 AM CHRISTIT Nikole Vega RN Q3: How often do you have six or more drinks on one occasion? Never 01/21/2024 9:51 AM CHRISTIT Nikole Vega RN documented as of this encounter Plan of Treatment Not on file documented as of this encounter Procedures Procedure Name Priority Date/Time Associated Diagnosis Comments BREAST IMAGING MG SCREENING OUTSIDE REFERENCE Routine 09/15/2011 12:00 AM CDT documented in this encounter Results * Breast Imaging Screening Outside Reference (09/15/2011 12:00 AM CDT) Impressions [facility] - 10/05/2022 10:43 AM CDT These images are for Reference purposes only and have not been reviewed by [facility]. There will be no report generated by a [facility] Radiologist. Narrative [facility] - 10/05/2022 10:43 AM CDT EXAMINATION: Images For Reference Purposes Only us Self Referral IMG MAMMO PROCEDURES Final Resul t [facility] documented in this encounter Visit Diagnoses Not on filedocumented in this encounter Additional Health Concerns Infection Onset Date Last Indicated Resolved Time COVID: Suspected 02/18/2021 02/18/2021 02/18/2021 9:54 PM CDT COVID: Suspected 02/19/2021 02/19/2021 02/19/2021 10:06 AM CDT COVID: Suspected 10/09/2022 10/09/2022 10/09/2022 2:21 PM CDT Diarrhea 07/01/2023 07/01/2023 07/15/2023 3:05 AM CDT C. difficile suspected 07/05/2023 07/05/2023 10:37 PM ASBESTOS WORKER HELPER COVID: Suspected 08/22/2023 08/22/2023 08/22/2023 5:03 PM CDT C. difficile suspected 08/22/2023 08/22/202308/22 3:06 AM CDT C. difficile suspected 09/01/2023 09/02/202309/04 3:05 AM CDT Norovirus suspected 09/01/2023 09/02/2023 09/05/19 3:05 AM CDT C. difficile suspected 01/14/2025 01/15/202501/15 3:09 PM CDT Norovirus suspected 01/14/2025 01/15/2025 01/16/20 5:16 PM CDT COVID: Suspected 01/15/2025 01/15/2025 01/15/2025 4:26 PM CDT C. difficile 01/15/2025 01/15/2025 documented as of this encounter
--- OUTSIDE RECORDS SUMMARY | 2011-09-15 | XMS_ITS | Encounter Summary ---
Author Organization [facility] Healthcare Address [address] [place] [address] Care Team Providers Care Incident Response Analyst Name Role Phone Unavailable Primary Care Provider Unavailabl e Reason for Visit * Diagnostic Imaging (Routine) - Closed Specialty Diagnoses / Procedures Referred By Yrn mei Referred To Contact Procedures Breast Imaging Screening Outside Reference Referral, Self Referral ID Status Reason Start Date Expiration Date Visits Re quested Visits Authorized [id number] Closed 10/05/2022 11/04/2023 1 1 Encounter Details Date Type Department Care Team (Late st Contact Info) Description 09/15/2011 Hospital Encounter [facility] [address] [place] [address] Social History Tobacco Use Types Packs/Day Years [...] How often do you attend chur or islam services? Patient unable to answer 09/04/2023 Do you belong to any clubs o r organizations such as sabianist groups, unions, fraternal or athletic groups, or [...] place to sleep or slept in a correction (including now)? Patient unable to answer 09/04/2023 [...] often do you attend chur ch or islam services? 1 to 4 times per year 01/16/2025 Do you belong to any clubs o r organizations such as sabianist groups, unions, fraternal or athletic groups, or [...] any time in the past 12 m [facility], were you homeless or living in a correction (including now)? 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 There will be no report generated by a [facility] Radiologist. Narrative [facility] - 10/05/2022 10:43 AM [...] C. difficile suspected 07/05/2023 07/05/2023 10:37 PM SENIOR BUSINESS ARCHITECT COVID: Suspected 08/22/2023 08/22/2023 08/22/2023 5:03 PM [...]
--- OUTSIDE RECORDS SUMMARY | 2014-01-27 | XMS_ITS | Encounter Summary ---
Author Organization [facility] Healthcare Address [address] [place] [address] Care Team Providers Care Heading And Priming Tool Setter Name Role Phone Unavailable Primary Care Provider Unavailabl e Reason for Visit * Diagnostic Imaging (Routine) - Closed Specialty Diagnoses / Procedures Referred By Yrn mei Referred To Contact Procedures Breast Imaging Screening Outside Reference Referral, Self Referral ID Status Reason Start Date Expiration Date Visits Re quested Visits Authorized [id number] Closed 10/05/2022 11/04/2023 1 1 Encounter Details Date Type Department Care Team (Late st Contact Info) Description 01/27/2014 Hospital Encounter [facility] [address] [place] [address] Social History Tobacco Use Types Packs/Day Years [...] How often do you attend chur or holiness services? Patient unable to answer 09/04/2023 Do you belong to any clubs o r organizations such as mosque groups, unions, fraternal or athletic groups, or [...] place to sleep or slept in a assisted (including now)? Patient unable to answer 09/04/2023 [...] often do you attend chur ch or holiness services? 1 to 4 times per year 01/16/2025 Do you belong to any clubs o r organizations such as mosque groups, unions, fraternal or athletic groups, or [...] any time in the past 12 m [facility], were you homeless or living in a assisted (including now)? 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 There will be no report generated by a [facility] Radiologist. Narrative [facility] - 10/05/2022 10:41 AM CDT EXAMINATION: Images For Reference Purposes [...] C. difficile suspected 07/05/2023 07/05/2023 10:37 PM ENGLISH COMPOSITION INSTRUCTOR COVID: Suspected 08/22/2023 08/22/2023 08/22/2023 5:03 PM [...]
--- OUTSIDE RECORDS SUMMARY | 2014-01-27 | XMS_ITS | Encounter Summary ---
Author Organization [facility] Healthcare Address [address] [place] [address] Care Team Providers Care Solution Design And Analysis Manager Name Role Phone Unavailable Primary Care Provider Unavailabl e Reason for Visit * Diagnostic Imaging (Routine) - Closed Specialty Diagnoses / Procedures Referred By Yrn mei Referred To Contact Procedures Breast Imaging Screening Outside Reference Referral, Self Referral ID Status Reason Start Date Expiration Date Visits Re quested Visits Authorized [id number] Closed 10/05/2022 11/04/2023 1 1 Encounter Details Date Type Department Care Team (Late st Contact Info) Description 01/27/2014 Hospital Encounter [facility]) [address] [place] [address] Social History Tobacco Use Types Packs/Day Years [...] How often do you attend chur or mormon services? Patient unable to answer 09/04/2023 Do you belong to any clubs o r organizations such as islam groups, unions, fraternal or athletic groups, or [...] place to sleep or slept in a fdc (including now)? Patient unable to answer 09/04/2023 [...] often do you attend chur ch or mormon services? 1 to 4 times per year 01/16/2025 Do you belong to any clubs o r organizations such as islam groups, unions, fraternal or athletic groups, or [...] any time in the past 12 m [facility], were you homeless or living in a fdc (including now)? 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 Radiology. There will be no report generated by a [facility] Radiologist. Narrative [facility] - 10/05/2022 10:41 AM [...] C. difficile suspected 07/05/2023 07/05/2023 10:37 PM PLANING MACHINE OPERATOR COVID: Suspected 08/22/2023 08/22/2023 08/22/2023 5:03 PM [...]
--- OUTSIDE RECORDS SUMMARY | 2019-10-31 | XMS_ITS | Encounter Summary ---
Author Organization [facility] Healthcare Address [address] [place] [address] Care Team Providers Care Javascript Engineer Name Role Phone Fide Contreras MD Primary Care Provider Reason for Visit * Diagnostic Imaging (Routine) - Closed Specialty Diagnoses / Procedures Referred By Contac t Referred To Contact Diagnoses Malignant neoplasm of left kidney (HCC) Malignant neoplasm of left kidney (HCC) Procedures Breast Imaging Screening Outside Reference Referral, Self Referral ID Status Reason Start Date Expiration Date Visits Re quested Visits Authorized [id number] Closed 10/05/2022 11/04/2023 1 1 Encounter Details Date Type Department Care Team (Late st Contact Info) Description 10/31/2019 Hospital Encounter [facility] [address] [place] [phone] Social History Tobacco Use Types Packs/Day Years [...] answer 09/04/2023 How often do you attend [facility] or taoist services? Patient unable to answer 09/04/2023 Do you belong to any clubs o r organizations such as congregation groups, unions, fraternal or athletic groups, or [...] place to sleep or slept in a jail (including now)? Patient unable to answer 09/04/2023 [...] often do you attend chur ch or taoist services? 1 to 4 times per year 01/16/2025 Do you belong to any clubs o r organizations such as congregation groups, unions, fraternal or athletic groups, or [...] any time in the past 12 m [facility], were you homeless or living in a jail (including now)? No 01/16/2025 [facility] Utilities Answer Date Recorded In the [...] on file Legal Sex Female 8:31 AM PUBLISHER ASSISTANT Gender Identity Female 12/08/2020 1:45 PM CDT Sexual Orientation Straight 01/22/2019 10 :49 AM CDT documented as of this encounter Functional Status * AUDIT-C Score Answer Date of Assessment Author 0 01/21/2024 9:51 AM CDT Nikole Vega RN * Question Answer Date of Assessment Author Q1: How often do you have a drink containing alcohol? Never 01/21/2024 9:51 AM CHRISTIT Nikole Vega RN Q2: How many drinks [...] Comments BREAST IMAGING MG SCREENING OUTSIDE REFERENCE Schedule Routine, Read Routine (OP Routine) 10/31/2019 12:00 AM CDT Malignant neoplasm of left kidney (HCC) Malignant neoplasm of left kidney (HCC) documented in this encounter Results * Breast Imaging Screening Outside Reference (10/31/2019 12:00 AM CDT) Impressions [facility] - 10/05/2022 10:41 AM CDT These images are for Reference purposes only and have not been reviewed by [facility] Radiology. There will be no report generated by a [facility] Radiologist. Narrative [facility] - 10/05/2022 10:41 AM CDT EXAMINATION: Images For Reference Purposes Only us Self Referral IMG MAMMO PROCEDURES Final Resul t [facility] documented in this encounter Visit Diagnoses Not on filedocumented in this encounter Additional Health Concerns Infection Onset Date Last Indicated Resolved Time COVID: Suspected 02/18/2021 02/18/2021 02/18/2021 9:54 PM CDT COVID: Suspected 02/19/2021 02/19/2021 02/19/2021 10:06 AM CDT COVID: Suspected 10/09/2022 10/09/2022 10/09/2022 2:21 PM CDT Diarrhea 07/01/2023 07/01/2023 07/15/2023 3:05 AM CDT C. difficile suspected 07/05/2023 07/05/2023 10:37 PM PUBLISHER ASSISTANT COVID: Suspected 08/22/2023 08/22/2023 08/22/2023 5:03 PM CDT C. difficile suspected 08/22/2023 08/22/202308/22 3:06 AM CDT C. difficile suspected 09/01/2023 09/02/202309/04 3:05 AM CDT Norovirus suspected 09/01/2023 09/02/2023 09/05/19 24 3:05 AM CDT C. difficile suspected 01/14/2025 01/15/202501/15 3:09 PM CDT Norovirus suspected 01/14/2025 01/15/2025 01/16/20 25 5:16 PM CDT COVID: Suspected 01/15/2025 01/15/2025 01/15/2025 4:26 PM CDT C. difficile 01/15/2025 01/15/2025 documented as of this encounter Care Teams Javascript Engineer Relationship Specialty Start Date End Date Fide Contreras MD [address] [place] [address] PCP - General Family Medicine 01/01/19 11/15/21 documented as of this encounter
--- OUTSIDE RECORDS SUMMARY | 2019-10-31 | XMS_ITS | Encounter Summary ---
Author Organization [facility] Healthcare Address [address] [place] [address] Care Team Providers Care Pattern Filer Name Role Phone Fide Contreras MD Primary Care Provider Reason for Visit * Diagnostic Imaging (Routine) - Closed Specialty Diagnoses / Procedures Referred By Contac t Referred To Contact Diagnoses Malignant neoplasm of left kidney (HCC) Malignant neoplasm of left kidney (HCC) Procedures Breast Imaging Screening Outside Reference Referral, Self Referral ID Status Reason Start Date Expiration Date Visits Re quested Visits Authorized [id number] Closed 10/05/2022 11/04/2023 1 1 Encounter Details Date Type Department Care Team (Late st Contact Info) Description 10/31/[address] [facility] [address] [place] [address] [phone] Social History Tobacco Use Types Packs/Day Years [...] answer 09/04/2023 How often do you attend [facility] or sabianist services? Patient unable to answer 09/04/2023 Do you belong to any clubs o r organizations such as anabaptism groups, unions, fraternal or athletic groups, or [...] place to sleep or slept in a longterm (including now)? Patient unable to answer 09/04/2023 [...] often do you attend chur ch or sabianist services? 1 to 4 times per year 01/16/2025 Do you belong to any clubs o r organizations such as anabaptism groups, unions, fraternal or athletic groups, or [...] any time in the past 12 m [facility], were you homeless or living in a longterm (including now)? No 01/16/2025 [facility] Utilities Answer Date Recorded In the [...] on file Legal Sex Female 8:31 AM NEWSPAPER WRITER Gender Identity Female 12/08/2020 1:45 PM CDT [...] only and have not been reviewed by [facility]. There will be no report generated by a [facility] Radiologist. Narrative [facility] - 10/05/2022 10:41 AM [...] C. difficile suspected 07/05/2023 07/05/2023 10:37 PM NEWSPAPER WRITER COVID: Suspected 08/22/2023 08/22/2023 08/22/2023 5:03 PM [...] documented as of this encounter Care Teams Pattern Filer Relationship Specialty Start Date End Date Fide Contreras MD [address] [place] [address] PCP - General Family Medicine 01/01/19 11/15/21 documented as of this encounter
[2025-03-07 23:13] VITALS: BP 153/96; PULSE 91; RESP 20; TEMP 36.6; O2SAT 100
--- OUTSIDE RECORDS SUMMARY | 2025-03-07 23:14 | XMS_ITS | Encounter Summary ---
Author Organization [facility] Address [address] [place] [address] Phone Care Team Providers Care Pneumatic Riveter Name Role Phone Lorene Prince MD Unavailable [phone] Akhil Russo MD Primary Care Provider Mili Mcleod NP Unavailable Guillermina Stokes MD Unavailable Lucy Lizarraga LPN Unavailable [phone] Dagoberto Dietrich MD Unavailable [phone] Encounter Details Date Type Department Care Team (Late st Contact Info) Description 01/15/2025 Results Follow-Up [facility] Medicine Oncology [address] [facility] [address] [place] [address] Lupis Friend NP [address] [place] [address] CBC with auto differential, Comprehensive metabolic panel, Magnesium, Additional followed-up results: 8 Social History Tobacco Use Types Packs/Day Years [...] 09/04/2023 How often do you attend chur ch or hindu services? Patient unable to answer 09/04/2023 Do [...] PHQ-2 Answer Date Recorded PHQ-2 Total Score 0 01/16/2025 PRAPARE - Transportation Answer Date Re [...] often do you attend chur ch or hindu services? 1 to 4 times per year [...] were you homeless or living in a senior living (including now)? No 01/16/2025 [facility] Utilities Answer Date Recorded In the past 12 months has [employer] electric, gas, oil, or water Aframe threatened to shut off services in your home? No 01/16/2025 Personal Safety Answer Date Recorded Have you ever been in or are you currently in a harmful physical or emotional relationship or is someone making you feel afraid or unsafe? 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 difficile suspected 01/14/2025 01/15/202501/15 3:09 PM CDT Norovirus suspected 01/14/2025 01/15/2025 01/16/20 5:16 PM CDT COVID: Suspected 01/15/2025 01/15/2025 01/15/2025 4:26 PM CDT C. difficile 01/15/2025 01/15/2025 documented as of this encounter Care Teams Pneumatic Riveter Relationship Specialty Start Date End Date Akhil Russo MD [address] [place] [address] PCP - General Family Medicine 11/29/21 Lorene Prince MD Medical Oncologist/Hematologis t Medical Oncology 01/31/21 Mili Mcleod NP [address] [place] [address] Nurse Practitioner Cardiovascular Disease 07/18/22 Guillermina Stokes MD [address] [facility] [address] [place] [address] Referring Physician Endocrinology Diabetes & Metabolism 08/20/23 Lucy Lizarraga, ENROUTE CONTROLLER [address] [place] [address] Auto Service Instructor 01/20/25 01/20/25 Dagoberto Dietrich MD [address] [facility] [address] [place] [address] Referring Physician Nephrology 02/22/25 documented as of this encounter
--- OUTSIDE RECORDS SUMMARY | 2025-03-07 23:14 | XMS_ITS | Encounter Summary ---
Author Organization [facility] Healthcare Address [address] [place] [address] Care Team Providers Care Ending Machine Operator Name Role Phone Lorene Prince MD Unavailable [phone] Vinod Bird MD Unavailable Akhil Russo MD Primary Care Provider [phone] Mili Mcleod NP Unavailable Guillermina Stokes MD Unavailable [phone] Lucy Lizarraga LPN Unavailable [phone] Dagoberto Dietrich MD Unavailable [phone] Encounter Details Date Type Department Care Team (Late st Contact Info) Description 12/01/2021 Telephone [facility] Primary Care Medicine Clinic [address] [facility] [address] [place] [address] Akhil Russo MD [facility] [facility] [address] [place] [address] Social History Tobacco Use Types [...] on file 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 difficile suspected 07/05/2023 07/05/2023 10:37 PM DESIGN ENGINEERING SPECIALIST COVID: Suspected 08/22/2023 08/22/2023 08/22/2023 5:03 PM [...] documented as of this encounter Care Teams Ending Machine Operator Relationship Specialty Start Date End Date Akhil Russo MD [address] [place] [address] PCP - General Family Medicine 11/29/21 Lorene Prince MD Medical Oncologist/Hematologis t Medical Oncology 01/31/21 Vinod Bird MD Consulting Physician Cardiovascular Disease 03/23/21 Mili Mcleod NP [address] [place] [address] Nurse Practitioner Cardiovascular Disease 07/18/22 Guillermina Stokes MD [address] [employer] [address] [place] [address] Referring Physician Endocrinology Diabetes & Metabolism 08/20/23 Lucy Lizarraga, BUNDLE PACKER [address] [place] [address] [address] [place] [address] Motor Vehicle License Clerk 01/20/25 01/20/25 Dagoberto Dietrich MD [address] [facility] [facility] [address] [place] [address] Referring Physician Nephrology 02/22/25 documented as of this encounter
--- OUTSIDE RECORDS SUMMARY | 2025-03-07 23:14 | XMS_ITS | Encounter Summary ---
Author Organization [facility] Healthcare Address [address] [place] [address] Care Team Providers Care Syrup Mixer Helper Name Role Phone Fide Contreras MD Primary Care Provider Lorene Prince MD Unavailable [phone] Vinod Bird MD Unavailable Sandra Prieto Primary Care Provider [phone] Akhil Russo MD Primary Care Provider [phone] Mili Mcleod NP Unavailable Guillermina Stokes MD Unavailable [phone] Lucy Lizarraga LPN Unavailable [phone] Dagoberto Dietrich MD Unavailable [phone] Encounter Details Date Type Department Care Team (Late st Contact Info) Description 01/04/2021 Telephone [facility] Radiology [address] [place] [address] Lorene Prince MD [address] [place], [place] [id number] Social History Tobacco Use Types Packs/Day Years [...] file Legal Sex Female 8:31 AM PNEUMATIC RIVETER Gender Identity Female 12/08/2020 1:45 PM CDT [...] difficile suspected 07/05/2023 07/05/2023 10:37 PM PNEUMATIC RIVETER COVID: Suspected 08/22/2023 08/22/2023 08/22/2023 5:03 PM [...] documented as of this encounter Care Teams Syrup Mixer Helper Relationship Specialty Start Date End Date Fide Contreras MD [address] [place] [address] [address] [facility] [address] [place] [address] PCP - General Family Medicine 01/01/19 11/15/21 Sandra Prieto PA [address] [facility] [address] [place] [address] PCP - General Internal Medicine 11/16/21 11/28/21 Akhil Russo MD [address] [place] [address] PCP - General Family Medicine 11/29/21 Lorene Prince MD [address] [place] [address] [address] [facility] [address] [place] [address] Medical Oncologist/Hematologis t Medical Oncology 01/31/21 Vinod Bird MD [address] [place] [address] [address] [facility] [address] [place] [address] Consulting Physician Cardiovascular Disease 03/23/21 Mili Mcleod NP [address] [place] [address] Nurse Practitioner Cardiovascular Disease 07/18/22 [place] [address] [place] [address] [address] [place] [address] Referring Physician Endocrinology Diabetes & Metabolism 08/20/23 Lucy Lizarraga, PLASTIC PRINTER [address] [place] [address] [address] [place] [address] Food Service Clerk 01/20/25 01/20/25 Dagoberto Dietrich MD [address] [place] [address] Referring Physician Nephrology 02/22/25 documented as of this encounter
--- OUTSIDE RECORDS SUMMARY | 2025-03-07 23:14 | XMS_ITS ---
Author Organization [facility] Address [address] [place] [address] Care Team Providers Care Tool [employer] Name Role Phone Lorene Prince MD Unavailable [phone] Akhil Russo MD Primary Care Provider [phone] Mili Mcleod NP Unavailable Guillermina Stokes MD Unavailable [phone] Dagoberto Dietrich MD Unavailable [phone] Active Problems Problem Noted Date Diagnosed Date Hospital discharge follow-up 01/23/2025 Assessment & Plan (01/26/2025 6:18 PM CDT): I have reviewed the hospital record, medications, and relevant testing from [facility] recent admission. Complications and discharge plan have been noted, reviewed. Post-discharge testing has been ordered. Coordination of Home care services and follow-up with specialist appointments confirmed. Instructions have been provided to and reviewed with the patient/wound care physician prior to discharge. C. difficile colitis 01/15/2025 Assessment & Plan (01/26/2025 6:18 PM CDT): Assessment & Plan (01/19/2025 2:04 PM CDT): Patient presented with recurrent diarrhea and persistent nausea since early December Admitted on 12/19 at outside hospital for hypotension, FARHANA, and colitis; treated with IV antibiotics and fluids and discharged on Levaquin and metronidazole which was completed on 12/28 Continued to be nauseated and was taking small amounts of food through the day to prevent diarrhea Had recurrence of diarrhea on 01/09 along with abdominal cramping and bubbling Has lost 10 lb in the past month CT chest abdomen pelvis (01/14) showed mild colitis involving the transverse and the descending colon. C diff was positive on 01/15; started on fidaxomicin No evidence of fulminant colitis at this time Assessment & Plan (01/18/2025 11:15 AM CDT): Patient presented with recurrent diarrhea and persistent nausea since december Admitted on 12/19 at outside hospital for hypotension, FARHANA, and colitis; treated with IV antibiotics and fluids and discharged on Levaquin and metronidazole which was completed on 12/28 Continued to be nauseated and was taking small amounts of food through the day to prevent diarrhea Had recurrence of diarrhea on 01/09 along with abdominal cramping and bubbling Has lost 10 lb in the past month CT chest abdomen pelvis (01/14) showed mild colitis involving the transverse and the descending colon. C diff was positive on 01/15; started on fidaxomicin No evidence of fulminant colitis at this time Assessment & Plan (01/17/2025 10:13 AM CDT): Patient presented with recurrent diarrhea and persistent nausea since december Admitted on 12/19 at outside hospital for hypotension, FARHANA, and colitis; treated with IV antibiotics and fluids and discharged on Levaquin and metronidazole which was completed on 12/28 Continued to be nauseated and was taking small amounts of food through the day to prevent diarrhea Had recurrence of diarrhea on 01/09 along with abdominal cramping and bubbling Has lost 10 lb in the past month CT chest abdomen pelvis (01/14) showed mild colitis involving the transverse and the descending colon. C diff was positive on 01/15; started on fidaxomicin No evidence of fulminant colitis at this time Assessment & Plan (01/16/2025 11:27 AM CDT): Patient presented with recurrent diarrhea and persistent nausea since december Admitted on 12/19 at outside hospital for hypotension, FARHANA, and colitis; treated with IV antibiotics and fluids and discharged on Levaquin and metronidazole which was completed on 12/28 Continued to be nauseated and was taking small amounts of food through the day to prevent diarrhea Had recurrence of diarrhea on 01/09 along with abdominal cramping and bubbling Has lost 10 lb in the past month CT chest abdomen pelvis (01/14) showed mild colitis involving the transverse and the descending colon. C diff was positive on 01/15; started on fidaxomicin No evidence of fulminant colitis at this time Assessment & Plan (01/15/2025 8:08 PM CDT): Patient presented with recurrent diarrhea and persistent nausea since early December Admitted on 12/19 at outside hospital for hypotension, FARHANA, and colitis; treated with IV antibiotics and fluids and discharged on Levaquin and metronidazole which was completed on 12/28 Continued to be nauseated and was taking small amounts of food through the day to prevent diarrhea Had recurrence of diarrhea on 01/09 along with abdominal cramping and bubbling Has lost 10 lb in the past month CT chest abdomen pelvis (01/14) showed mild colitis involving the transverse and the descending colon. C diff was positive on 01/15; started on fidaxomicin No evidence of fulminant colitis at this time Type 2 diabetes mellitus with chronic kidney dis ease 01/15/2025 Assessment & Plan (02/22/2025 7:03 PM CDT): Glucoses now in a range of control and safety. Needs to hold Jardiance if risk of dehydration Assessment & Plan (01/26/2025 6:18 PM CDT): Repeat A1c. Orders: Hemoglobin A1c; Future Assessment & Plan (01/19/2025 2:04 PM CDT): On januvia and jardiance at home On sliding scale here. Assessment & Plan (01/18/2025 11:15 AM CDT): On januvia and jardiance at home On sliding scale here. Assessment & Plan (01/17/2025 10:13 AM CDT): On januvia and jardiance at home On sliding scale here. Assessment & Plan (01/16/2025 11:27 AM CDT): On januvia and jardiance at home On sliding scale here. Assessment & Plan (01/15/2025 8:18 PM CDT): On januvia and jardiance at home On sliding scale here. Arthralgia 12/26/2024 Burst blood vessel of right eye 12/26/2024 Constipation 12/26/2024 Feeling stressed out 12/26/2024 BELEN (generalized anxiety disorder) 12/26/2024 Gastroenteritis 12/26/2024 H/O left nephrectomy 12/26/2024 MDD (major depressive disord er), recurrent episode, moderate 12/26/2024 Assessment & Plan (01/26/2025 6:18 PM CDT): Patient is doing well on sertraline 25 mg b.i.d.. We will continue this medication. She denies any suicidal ideations. PHQ Screening Over the past 2 weeks, how often have you been bothered by any of the following problems? Little Interest or Pleasure in Doing Things: 0-Not at all Feeling Down, Depressed, or Hopeless: 0-Not at all PHQ-2 Total Score (If total score is 3 or more points, staff should administer the PHQ-9): 0 Muscle spasms of neck 12/26/2024 Nausea 12/26/2024 Seasonal allergic rhinitis 12/26/2024 Sensation of skin crawling 12/26/2024 Trochanteric bursitis of both hips 12/26/2024 UTI (urinary tract infection) 12/26/2024 Vitamin D deficiency 12/26/2024 Assessment & Plan (02/22/2025 7:04 PM CDT): Continue long-term supplement. Most recent 25-D level 44. 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 On Jardiance and followed by renal Assessment & Plan (01/19/2025 2:04 PM CDT): Status post left nephrectomy in 2018 and history of stage III A CKD. Creatinine is at baseline during this admission ue to the poor oral intake and the persistent diarrhea, patient was given a L bolus on admission Developed FARHANA :Cr worsened upto 1.2, likely pre renal Creatinine worsening further to 1.25, s/p IV fluids. FARHANA started to improve Assessment & Plan (01/18/2025 11:15 AM CDT): Status post left nephrectomy in 2019 and history of stage III A CKD. Creatinine is at baseline during this admission ue to the poor oral intake and the persistent diarrhea, patient was given a L bolus on admission Developed FARHANA :Cr worsened upto 1.2, likely pre renal Creatinine worsening further to 1.25, will obtain urine lytes, continue IV fluids Assessment & Plan (01/17/2025 10:13 AM CDT): Status post left nephrectomy in 2018 and history of stage III A CKD. Creatinine is at baseline during this admission ue to the poor oral intake and the persistent diarrhea, patient was given a L bolus on admission Developed FARHANA :Cr worsened upto 1.2, likely pre renal , will start IV fluids Assessment & Plan (01/16/2025 11:27 AM CDT): Status post left nephrectomy in 2019 and history of stage III A CKD. Creatinine is at baseline during this admission Due to the poor oral intake and the persistent diarrhea, patient was given a L bolus and has been on maintenance fluids. Assessment & Plan (01/15/2025 8:08 PM CDT): Status post left nephrectomy in 2019 and history of stage III A CKD. Creatinine is at baseline during this admission Due to the poor oral intake and the persistent diarrhea, patient was given a L bolus and has been on maintenance fluids. Anemia 09/03/2023 Assessment & Plan (01/26/2025 6:18 PM CDT): Repeat labs ordered to assess level Orders: CBC with auto differential; Future Ferritin; Future Iron profile w/ IBC; Future Assessment & Plan (09/03/2023 3:42 PM CDT): [...] resolve. Assessment & Plan (04/05/2022 12:32 AM GENERAL CLAIMS AGENT): - Pt c/o dehydration and lightheadedness on exam - CTH was unremarkable for any acute intracranial abnormalities. No orthostatis noted on exam - c/w LR @ 75 ml/hr Bacteriuria 04/05/2022 Assessment & Plan (04/05/2022 12:39 AM GENERAL CLAIMS AGENT): - UA was + for LE and trace Bacteria, given immunocompromised status, will start on Cefepime IV 2g q12h pending cultures - Taper coverage based on c&s Headache 04/05/2022 Assessment & Plan (04/05/2022 12:40 AM GENERAL CLAIMS AGENT): - Pt c/o intermittent headaches and lightheadedness on exam. Given hx of mets CTH was obtained which was unremarkable for any acute intracranial abnormalities. Seasonal allergies 04/05/2022 Assessment & Plan (04/05/2022 12:40 AM GENERAL CLAIMS AGENT): - c/w Flonase nasal spray MARAVILLA (dyspnea on exertion) 04/05/2022 Assessment & Plan (04/05/2022 12:48 AM GENERAL CLAIMS AGENT): - Pt c/o dyspnea on exertion , can likely be related to metastatic disease progression - EKG was unremarkable on admission while Trop and BNP were also WNL - TTE donw previously in 12/2020 was remarkable for LVEf of 54% with limited study - Plan to repeat TTE Diarrhea in adult patient 04/04/2022 Assessment & Plan (04/05/2022 12:37 AM GENERAL CLAIMS AGENT): - Pt presented with worsening NB , [...] 11/30/2021 Assessment & Plan (03/19/2024 10:38 AM GENERAL CLAIMS AGENT): A(n) yearly Medicare Annual Wellness Visit has [...] OK Assessment & Plan (07/08/2022 12:17 PM GENERAL CLAIMS AGENT): TSH 0.17 uIU/ml, normal T4 Thyroid dosing has been adjusted, awaiting repeat Assessment & Plan (04/05/2022 12:34 AM GENERAL CLAIMS AGENT): - c/w Synthroid 100 mcg po qam [...] zoloft Assessment & Plan (04/05/2022 12:37 AM GENERAL CLAIMS AGENT): - c/w Sertraline 25 mg po every [...] meningitis -Total spine MRI was ordered in [facility] and completed --> Posterior T12 Vertebral lesion [...] meningitis -Total spine MRI was ordered in [facility] and completed, read pending -Will start scheduled [...] likely more of an outpatient work-up/referral Nausea and vomiting 07/18/2021 Assessment & Plan (01/19/2025 2:04 PM CDT): Patient presented with recurrent diarrhea and persistent nausea since early December Admitted on 12/19 at outside hospital for hypotension, FARHANA, and colitis; treated with IV antibiotics and fluids and discharged on Levaquin and metronidazole which was completed on 12/28 Continued to be nauseated and was taking small amounts of food through the day to prevent diarrhea Had recurrence of diarrhea on 01/09 along with abdominal cramping and bubbling Has lost 10 lb in the past month CT chest abdomen pelvis (01/14) showed mild colitis involving the transverse and the descending colon. C diff was positive on 01/15; started on fidaxomicin No evidence of fulminant colitis at this time Assessment & Plan (01/18/2025 11:15 AM CDT): Patient presented with recurrent diarrhea and persistent nausea since december Admitted on 12/19 at outside hospital for hypotension, FARHANA, and colitis; treated with IV antibiotics and fluids and discharged on Levaquin and metronidazole which was completed on 12/28 Continued to be nauseated and was taking small amounts of food through the day to prevent diarrhea Had recurrence of diarrhea on 01/09 along with abdominal cramping and bubbling Has lost 10 lb in the past month CT chest abdomen pelvis (01/14) showed mild colitis involving the transverse and the descending colon. C diff was positive on 01/15; started on fidaxomicin No evidence of fulminant colitis at this time Assessment & Plan (01/17/2025 10:13 AM CDT): Patient presented with recurrent diarrhea and persistent nausea since december Admitted on 12/19 at outside hospital for hypotension, FARHANA, and colitis; treated with IV antibiotics and fluids and discharged on Levaquin and metronidazole which was completed on 12/28 Continued to be nauseated and was taking small amounts of food through the day to prevent diarrhea Had recurrence of diarrhea on 01/09 along with abdominal cramping and bubbling Has lost 10 lb in the past month CT chest abdomen pelvis (01/14) showed mild colitis involving the transverse and the descending colon. C diff was positive on 01/15; started on fidaxomicin No evidence of fulminant colitis at this time Assessment & Plan (01/16/2025 11:27 AM CDT): Patient presented with recurrent diarrhea and persistent nausea since december Admitted on 12/19 at outside hospital for hypotension, FARHANA, and colitis; treated with IV antibiotics and fluids and discharged on Levaquin and metronidazole which was completed on 12/28 Continued to be nauseated and was taking small amounts of food through the day to prevent diarrhea Had recurrence of diarrhea on 01/09 along with abdominal cramping and bubbling Has lost 10 lb in the past month CT chest abdomen pelvis (01/14) showed mild colitis involving the transverse and the descending colon. C diff was positive on 01/15; started on fidaxomicin No evidence of fulminant colitis at this time Assessment & Plan (01/15/2025 8:08 PM CDT): Patient presented with recurrent diarrhea and persistent nausea since early December Admitted on 12/19 at outside hospital for hypotension, FARHANA, and colitis; treated with IV antibiotics and fluids and discharged on Levaquin and metronidazole which was completed on 12/28 Continued to be nauseated and was taking small amounts of food through the day to prevent diarrhea Had recurrence of diarrhea on 01/09 along with abdominal cramping and bubbling Has lost 10 lb in the past month CT chest abdomen pelvis (01/14) showed mild colitis involving the transverse and the descending colon. C diff was positive on 01/15; started on fidaxomicin No evidence of fulminant colitis at this time Assessment & Plan (07/23/2021 11:35 AM CDT): [...] Hgb <7 Diarrhea 02/18/2021 Assessment & Plan (01/19/2025 2:04 PM CDT): Patient presented with recurrent diarrhea and persistent nausea since early December Admitted on 12/19 at outside hospital for hypotension, FARHANA, and colitis; treated with IV antibiotics and fluids and discharged on Levaquin and metronidazole which was completed on 12/28 Continued to be nauseated and was taking small amounts of food through the day to prevent diarrhea Had recurrence of diarrhea on 01/09 along with abdominal cramping and bubbling Has lost 10 lb in the past month CT chest abdomen pelvis (01/14) showed mild colitis involving the transverse and the descending colon. C diff was positive on 01/15; started on fidaxomicin No evidence of fulminant colitis at this time Assessment & Plan (01/18/2025 11:15 AM CDT): Patient presented with recurrent diarrhea and persistent nausea since early December Admitted on 12/19 at outside hospital for hypotension, FARHANA, and colitis; treated with IV antibiotics and fluids and discharged on Levaquin and metronidazole which was completed on 12/28 Continued to be nauseated and was taking small amounts of food through the day to prevent diarrhea Had recurrence of diarrhea on 01/09 along with abdominal cramping and bubbling Has lost 10 lb in the past month CT chest abdomen pelvis (01/14) showed mild colitis involving the transverse and the descending colon. C diff was positive on 01/15; started on fidaxomicin No evidence of fulminant colitis at this time Assessment & Plan (01/17/2025 10:13 AM CDT): Patient presented with recurrent diarrhea and persistent nausea since december Admitted on 12/19 at outside hospital for hypotension, FARHANA, and colitis; treated with IV antibiotics and fluids and discharged on Levaquin and metronidazole which was completed on 12/28 Continued to be nauseated and was taking small amounts of food through the day to prevent diarrhea Had recurrence of diarrhea on 01/09 along with abdominal cramping and bubbling Has lost 10 lb in the past month CT chest abdomen pelvis (01/14) showed mild colitis involving the transverse and the descending colon. C diff was positive on 01/15; started on fidaxomicin No evidence of fulminant colitis at this time Assessment & Plan (01/16/2025 11:27 AM CDT): Patient presented with recurrent diarrhea and persistent nausea since december Admitted on 12/19 at outside hospital for hypotension, FARHANA, and colitis; treated with IV antibiotics and fluids and discharged on Levaquin and metronidazole which was completed on 12/28 Continued to be nauseated and was taking small amounts of food through the day to prevent diarrhea Had recurrence of diarrhea on 01/09 along with abdominal cramping and bubbling Has lost 10 lb in the past month CT chest abdomen pelvis (01/14) showed mild colitis involving the transverse and the descending colon. C diff was positive on 01/15; started on fidaxomicin No evidence of fulminant colitis at this time Assessment & Plan (01/15/2025 8:08 PM CDT): Patient presented with recurrent diarrhea and persistent nausea since december Admitted on 12/19 at outside hospital for hypotension, FARHANA, and colitis; treated with IV antibiotics and fluids and discharged on Levaquin and metronidazole which was completed on 12/28 Continued to be nauseated and was taking small amounts of food through the day to prevent diarrhea Had recurrence of diarrhea on 01/09 along with abdominal cramping and bubbling Has lost 10 lb in the past month CT chest abdomen pelvis (01/14) showed mild colitis involving the transverse and the descending colon. C diff was positive on 01/15; started on fidaxomicin No evidence of fulminant colitis at this time Assessment & Plan (02/18/2021 7:39 PM CDT): [...] 02/18/2021 Assessment & Plan (04/05/2022 12:34 AM GENERAL CLAIMS AGENT): - Pt c/o worsening SOB which can [...] CTM Primary hypertension 02/18/2021 Assessment & Plan (01/19/2025 2:04 PM CDT): On telmisartan and amlodipine at home Amlodipine held since mid December due to her lower pressures Held both during this admission initially as the patient is normotensive Can restart losartan on discharge as BP and FARHANA improved Assessment & Plan (01/18/2025 11:15 AM CDT): On telmisartan and amlodipine at home Amlodipine held since december due to her lower pressures Held both during this admission as the patient is normotensive Assessment & Plan (01/17/2025 10:13 AM CDT): On telmisartan and amlodipine at home Amlodipine held since december due to her lower pressures Held both during this admission as the patient is normotensive Assessment & Plan (01/16/2025 11:27 AM CDT): On telmisartan and amlodipine at home Amlodipine held since december due to her lower pressures Held both during this admission as the patient is normotensive Assessment & Plan (01/15/2025 8:08 PM CDT): On telmisartan and amlodipine at home Amlodipine held since december due to her lower pressures Held both during this admission as the patient is normotensive Assessment & Plan (09/13/2023 4:28 PM CDT): [...] dehydration Assessment & Plan (07/08/2022 12:18 PM GENERAL CLAIMS AGENT): Renal function decreased, GFR at 42 Creatinine 1.39 Advised on hydration Assessment & Plan (04/05/2022 12:34 AM GENERAL CLAIMS AGENT): - c/w Toprol XL 50 mg po [...] pressures, resume as needed Lung nodules 12/08/2020 Assessment & Plan (01/19/2025 2:04 PM CDT): 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 Has not taken oral chemo since 01/12 Med Onc consulted Assessment & Plan (01/15/2025 8:08 PM CDT): 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 Has not taken oral chemo since 01/12 Med Onc consulted Assessment & Plan (01/18/2025 11:15 AM CDT): 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 Has not taken oral chemo since 01/12 Med Onc consulted Assessment & Plan (01/15/2025 8:08 PM CDT): 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 Has not taken oral chemo since 01/12 Med Onc consulted Assessment & Plan (09/03/2023 3:38 PM CDT): mRCC, s/p multiple lines of chemotherapy. Started everolimus/lenvatinib 06/2023. Took last dose 08/31. Stable disease on last imaging -holding lenvatinib/everolimus for now - could be worsening diarrhea -med onc consulted -CT AP this admission showing no mets or recurrence. Assessment & Plan (04/05/2022 12:31 AM GENERAL CLAIMS AGENT): - Pt was diagnosed with left renal [...] Medications Current Day (Day 1 , Cycle 18 - Planned for 02/23/2025) Next Day (Day 1, Cycle 19 - Planned for 04/13/2025) everolimus (AFINITOR)lenvatinib (LENVIMA) everolimus (AFINITOR) 5 mg tabletlenvatinib (LENVIMA) 8 mg/day (4 mg x 2) capsule everolimus (AFINITOR) 5 mg tabletlenvatinib (LENVIMA) 8 mg/day (4 mg x 2) capsule Zofran* Plan Start Date:07/18/2021 Plan Provider:Lorene Prince [...] Treatment Medications Discontinue Reason Plan Provider Cycles [id number] [facility] [id number] Part 1 Arm A Nivolumab + Bempegaldesleukin + Axitinib 01/18/20 21 07/24/2022 [facility] (2018-02-074/ [id number]) Nivolumab/BMS -[id number] IVPB in 50 mLINV-[facility] (/ [id number]) NKTR-214 (BEMPEGALDESL EUKIN) IVPB in 50 mL () [facility] axitinib (/ [id number]) Progressive Disease Lorene Prince MD 24 of 33 cycles started Lifetime Dose Tracking * Chemical Lifetime Dose Automatic Entry Manual Entr y Fluoro Time 1 minutes 1 minutes 0 minutes Air kerma at the reference point (Ka,r) 808 mGy 8 08 mGy 0 mGy DLP 25,182 mGycm 25,182 mGycm 0 mGycm Resolved Problems Problem Noted Date Diagnosed Date Resolved Date Hypovolemia 09/02/2023 09/03/2023 Assessment & Plan (09/02/2023 12:11 PM CDT): Orthostatic vitals + on arrival. Frequent diarrhea -strict I/O. mIVF. Keep even Pulmonary emboli 04/05/2022 07/18/2023 Assessment & Plan (04/05/2022 12:39 AM GENERAL CLAIMS AGENT): - Pt has documented hx of PE, has been off AC for over 3 months Total perforation of left tympanic membrane 09/12/2021 02/10/2022 Overview (09/12/2021): Added automatically from request for surgery [id number] Left renal mass 01/03/2019 01/24/2019 Overview (01/03/2019): Added automatically from request for surgery [id number]
--- OUTSIDE RECORDS SUMMARY | 2025-03-07 23:14 | XMS_ITS | Encounter Summary ---
Author Organization [facility] Address [address] [place] [address] Phone Care Team Providers Care Quantitative Manager Name Role Phone Lorene Prince MD Unavailable [phone] Akhil Russo MD Primary Care Provider [phone] Mili Mcleod NP Unavailable Guillermina Stokes MD Unavailable [phone] Dagoberto Dietrich MD Unavailable [phone] Encounter Details Date Type Department Care Team (Late st Contact Info) Description 02/27/2025 Results Follow-Up [facility] Medicine Oncology [address] [place] [id number] Lupis Friend NP [address] [place] [address] Lipid panel, Comprehensive metabolic panel, CBC with auto differential, Additional followed-up results: 10 Social History Tobacco Use Types Packs/Day Years [...] often do you attend chur ch or adventism services? Patient unable to answer 09/04/2023 Do [...] often do you attend chur ch or adventism services? 1 to 4 times per year [...] any time in the past 12 m [facility], were you homeless or living in a fpc (including now)? 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 difficile 01/15/2025 01/15/2025 documented as of this encounter Care Teams Quantitative Manager Relationship Specialty Start Date End Date Akhil Russo MD [address] [place] [address] PCP - General Family Medicine 11/29/21 Lorene Prince MD Medical Oncologist/Hematologis t Medical Oncology 01/31/21 Mili Mcleod NP [address] [place] [address] Nurse Practitioner Cardiovascular Disease 07/18/22 Guillermina Stokes MD [address] [place] [address] Referring Physician Endocrinology Diabetes & Metabolism 08/20/23 Dagoberto Dietrich MD [address] [place] [address] Referring Physician Nephrology 02/22/25 documented as of this encounter
--- OUTSIDE RECORDS SUMMARY | 2025-03-07 23:14 | XMS_ITS | Encounter Summary ---
Author Organization [facility] Address [address] [place] [address] Phone Care Team Providers Care Batch And Furnace Operator Name Role Phone Lorene Prince MD Unavailable [phone] Akhil Russo MD Primary Care Provider [phone] Mili Mcleod NP Unavailable Guillermina Stokes MD Unavailable [phone] Lucy Lizarraga LPN Unavailable [phone] Dagoberto Dietrich MD Unavailable [phone] Encounter Details Date Type Department Care Team (Late st Contact Info) Description 10/10/2022 Telephone [facility] - [facility] Medicine ENT [address] [facility] [address] [place] [address] [place] [address] Goyo Salinas MD [address] [place] [address] Social History Tobacco Use Types [...] on file 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 difficile suspected 07/05/2023 07/05/2023 10:37 PM ACCOUNTING POLICY CONSULTANT COVID: Suspected 08/22/2023 08/22/2023 08/22/2023 5:03 PM [...] documented as of this encounter Care Teams Batch And Furnace Operator Relationship Specialty Start Date End Date Akhil Russo MD [address] [place] [address] PCP - General Family Medicine 11/29/21 Lorene Prince MD Medical Oncologist/Hematologis t Medical Oncology 01/31/21 Mili Mcleod NP [address] [place] [address] Nurse Practitioner Cardiovascular Disease 07/18/22 Guillermina Stokes MD [address] [facility] [facility] [address] [place] [address] Referring Physician Endocrinology Diabetes & Metabolism 08/20/23 Lucy Lizarraga, POWERTRAIN CALIBRATION ENGINEER [address] [place] [address] [address] [place] [address] Command And Control Specialist 01/20/25 01/20/25 Dagoberto Dietrich MD [address] [facility] [address] [address] [place] [address] Referring Physician Nephrology 02/22/25 documented as of this encounter
--- OUTSIDE RECORDS SUMMARY | 2025-03-07 23:14 | XMS_ITS | Clinical Summary ---
Author Organization [facility] Address [address] [place] [address] Care Team Providers Care Thermal Cutting Machine Operator Name Role Phone Lorene Prince MD Unavailable [phone] Akhil Russo MD Primary Care Provider Mili Mcleod NP Unavailable Guillermina Stokes MD Unavailable [phone] Dagoberto Dietrich MD Unavailable [phone] Allergies Active Allergy Reactions Criticality Noted Date Comments [place] [employer] Derivatives Diarrhea Low 01/09/2019 Codeine Hives Medium 01/07/2019 Dairy - All Forms And Ingredients Diarrhea,Headache Low 01/09/2019 Egg Yolk Headache Low 01/23/2025 Fish Containing Products Hives,Headache Medium 01/09/2019 Lactase Headache Low 07/12/2024 Milk Headache High 07/12/2024 Nut - Unspecified Headache High 07/12/2024 Nuts Headache Low 08/01/2021 Other Other (See comments),Nausea only Low 01/21/2024 MONO SODIUM GLUTAMATE Migraine Penicillins Hives Medium 01/07/2019 Sulfa (Sulfonamide Antibiotics) Hives Medium 01/07/2019 Medications albuterol HFA (PROVENTIL HFA,VENTOLIN HFA,PROAIR HFA) [...] itching 45 g 1 07/27/19 24 Active multivitamin tabletIndications :Vitamin Deficiency Prevention Take 1 tablet by mouth Active ondansetron ODT (ZOFRAN-ODT) 8 mg disintegrating tablet Take 1 tablet (8 mg total) by mouth every 8 (eight) hours as needed for nausea or vomiting 30 tablet 11 09/24/19 24 Active urea (CARMOL) 20 % cream Apply topically as needed for dry skin 85 g 2 07/29/19 25 Active sertraline (ZOLOFT) 25 mg tablet Take 1 tablet by mouth twice daily 60 tablet 11 08/12/19 25 Active furosemide (LASIX) 20 mg tablet Take 1 tablet (20 mg total) by mouth daily as needed (For swelling in legs) 15 tablet 08/28/19 25 Active ofloxacin (FLOXIN) 0.3 % otic solution Administer 5 drops into the left ear 2 (two) times a day 10 mL 3 09/18/19 25 Active lenvatinib (Lenvima) 8 mg/day (4 mg x 2) capsule TAKE 2 CAPSULES (8 MG) BY MOUTH DAILY INDICATIONS: RENAL CELL CARCINOMA. TAKE WITH OR WITHOUT FOODAT THE SAME TIME EACH DAY. 60 capsule 10/08/19 25 Active everolimus (AFINITOR) 5 mg tabletIndications :Malignant neoplasm of left kidney (HCC) TAKE 1 TABLET BY MOUTH DAILY SWALLOW WHOLE WITH A GLASS OF WATER. 28 tablet 11 10/08/19 25 Active telmisartan (MICARDIS) 20 mg tablet Take 1 tablet by mouth once daily 30 tablet 5 10/09/19 25 Active traMADoL (ULTRAM) 50 mg tablet Take 1 tablet (50 mg total) by mouth 2 (two) times a day as needed for pain 60 tablet 12/09/19 25 Active OLANZapine (ZyPREXA) 2.5 mg tablet Take 1 tablet (2.5 mg total) by mouth nightly 30 tablet 12/12/19 25 Active atorvastatin (LIPITOR) 10 mg tablet Take 1 tablet by mouth once daily 90 tablet 3 01/05/20 25 Active levothyroxine (SYNTHROID) 88 mcg tablet Take 1 tablet by mouth once daily 30 tablet 1 01/16/[address] (PROTONIX) 40 mg EC tablet Take 1 tablet by mouth once daily 100 tablet 1 02/01/20 25 Active blood glucose diagnostic (glucose blood) stripIndications: Type 2 diabetes mellitus with stage 3a chronic kidney disease, without long-term current use of insulin ([facility]) For home blood glucose monitoring, once daily 100 each 02/03/20 25 2025 Active lancets 33 gauge miscIndications:T ype 2 diabetes mellitus with stage 3a chronic kidney disease, without long-term current use of insulin ([facility]) For home blood glucose monitoring, 1ce daily 100 each 02/03/20 25 Active Januvia 50 mg tablet Take 1 tablet by mouth once daily 30 tablet 03/02/20 25 Active Januvia 50 mg tablet Take 1 tablet by mouth once daily 30 tablet 01/27/20 25 2024 Discontinued blood-glucose meter kitIndications:Ty pe 2 diabetes mellitus with stage 3a chronic kidney disease, without long-term current use of insulin (HCC) For home blood glucose monitoring, 1ce daily 1 kit 02/03/20 25 2024 Discontinued Active Problems Problem Noted Date Diagnosed Date Hospital discharge follow-up 01/23/2025 Assessment & Plan (01/26/2025 6:18 PM CDT): I have reviewed the hospital record, medications, and relevant testing from [facility] recent admission. Complications and discharge plan have been noted, reviewed. Post-discharge testing has been ordered. Coordination of Home care services and follow-up with specialist appointments confirmed. Instructions have been provided to and reviewed with the patient/home care chaplain prior to discharge. C. difficile colitis 01/15/2025 [...] resolve. Assessment & Plan (04/05/2022 12:32 AM ANIMAL RIDES MANAGER): - Pt c/o dehydration and lightheadedness on exam - CTH was unremarkable for any acute intracranial abnormalities. No orthostatis noted on exam - c/w LR @ 75 ml/hr Bacteriuria 04/05/2022 Assessment & Plan (04/05/2022 12:39 AM ANIMAL RIDES MANAGER): - UA was + for LE and trace Bacteria, given immunocompromised status, will start on Cefepime IV 2g q12h pending cultures - Taper coverage based on c&s Headache 04/05/2022 Assessment & Plan (04/05/2022 12:40 AM ANIMAL RIDES MANAGER): - Pt c/o intermittent headaches and lightheadedness on exam. Given hx of mets CTH was obtained which was unremarkable for any acute intracranial abnormalities. Seasonal allergies 04/05/2022 Assessment & Plan (04/05/2022 12:40 AM ANIMAL RIDES MANAGER): - c/w Flonase nasal spray MARAVILLA (dyspnea on exertion) 04/05/2022 Assessment & Plan (04/05/2022 12:48 AM ANIMAL RIDES MANAGER): - Pt c/o dyspnea on exertion , can likely be related to metastatic disease progression - EKG was unremarkable on admission while Trop and BNP were also WNL - TTE donw previously in 12/2020 was remarkable for LVEf of 54% with limited study - Plan to repeat TTE Diarrhea in adult patient 04/04/2022 Assessment & Plan (04/05/2022 12:37 AM ANIMAL RIDES MANAGER): - Pt presented with worsening NB , [...] 11/30/2021 Assessment & Plan (03/19/2024 10:38 AM ANIMAL RIDES MANAGER): A(n) yearly Medicare Annual Wellness Visit has [...] OK Assessment & Plan (07/08/2022 12:17 PM ANIMAL RIDES MANAGER): TSH 0.17 uIU/ml, normal T4 Thyroid dosing has been adjusted, awaiting repeat Assessment & Plan (04/05/2022 12:34 AM ANIMAL RIDES MANAGER): - c/w Synthroid 100 mcg po qam [...] zoloft Assessment & Plan (04/05/2022 12:37 AM ANIMAL RIDES MANAGER): - c/w Sertraline 25 mg po every [...] -Total spine MRI was ordered in [facility] and completed --> Posterior T12 Vertebral lesion [...] -Total spine MRI was ordered in [facility] and completed, read pending -Will start scheduled [...] persistent nausea since early December Admitted on 8/15 at outside hospital for hypotension, FARHANA, and [...] 02/18/2021 Assessment & Plan (04/05/2022 12:34 AM ANIMAL RIDES MANAGER): - Pt c/o worsening SOB which can [...] dehydration Assessment & Plan (07/08/2022 12:18 PM ANIMAL RIDES MANAGER): Renal function decreased, GFR at 42 Creatinine 1.39 Advised on hydration Assessment & Plan (04/05/2022 12:34 AM ANIMAL RIDES MANAGER): - c/w Toprol XL 50 mg po [...] recurrence. Assessment & Plan (04/05/2022 12:31 AM ANIMAL RIDES MANAGER): - Pt was diagnosed with left renal [...] 07/18/2023 Assessment & Plan (04/05/2022 12:39 AM ANIMAL RIDES MANAGER): - Pt has documented hx of PE, has been off AC for over 3 months Total perforation of left tympanic membrane 09/12/2021 02/10/2022 Overview (09/12/2021): Added automatically from request for surgery [id number] Left renal mass 01/03/2019 01/24/2019 Overview (01/03/2019): Added automatically from request for surgery [id number] Encounters Date Type Department Care Team Description 02/27/2025 Orders Only [facility] Medicine Oncology [facility] [address] [place] [address] Lorene Prince MD 02/27/2025 Results Follow-Up [facility] Oncology [address] [facility] [address] [place] [address] Lupis Friend NP Lipid panel, Comprehensive metabolic panel, CBC with auto differential, Additional followed-up results: 10 02/23/2025 2:15 PM CDT Office Visit [facility] Medicine Oncology [facility] [address] [place] [address] Lupis Friend, [place] Malignant neoplasm of left kidney (CMS/HCC) (HCC) (Primary Dx); Secondary malignant neoplasm of left lung (HCC); Malignant neoplasm of left kidney (HCC) 02/23/2025 1:15 PM CDT Lab [facility] - Lab Collection [address] [facility] Floor 5 [place] [address] Malignant neoplasm of left kidney (CMS/HCC) (HCC); Secondary malignant neoplasm of left lung (HCC) 02/19/2025 11:40 AM CDT Telemedicine [facility] Endocrinology Metabolism and Lipid [address] [facility] 13th [place] [address] [place] [address] Guillermina Stokes MD Type 2 diabetes mellitus with stage 3 chronic kidney disease, with long-term current use of insulin, unspecified whether stage 3a or 3b CKD (HCC) (Primary Dx); Stage 3a chronic kidney disease (HCC); Mixed hyperlipidemia; Vitamin D deficiency 02/19/2025 Telephone [facility] Endocrinology Metabolism and Lipid [address] [facility] 13th [place] [address] [place] [address] Maureen Domínguez RN encourage to complete e check in for tele visit appt today 02/10/2025 10:40 AM CDT Office Visit [facility] Orthopaedic Surgery [address] [facility] 1st Floor [address] [place] [address] Knapik, Ezekiel Solitario, MD Right knee pain, unspecified chronicity (Primary Dx) 02/05/2025 Orders Only [facility] Medicine Oncology [address] [place] [phone] Lorene Prince MD Malignant neoplasm of left kidney (HCC) (Primary Dx) 01/23/2025 2:00 PM CDT Office Visit [facility] Primary Care at [address] [address] Candelaria Cisneros NP C. difficile colitis (Primary Dx); Hospital discharge follow-up; Iron deficiency anemia due to chronic blood loss; FARHANA (acute kidney injury); Type 2 diabetes mellitus with stage 3a chronic kidney disease, without long-term current use of insulin (HCC); MDD (major depressive disorder), recurrent episode, moderate (HCC); Mixed hyperlipidemia 01/23/2025 Telephone [facility] Oncology [address] [place] [phone] Lorene Prince MD 01/23/2025 Telephone [facility] Oncology [address] [place] [phone] Lorene Prince MD 01/21/2025 Telephone [facility] Oncology [address] [place] [phone] Lorene Prince MD 01/20/2025 DMITRI IP Outreach [facility] Accountable Care Organization [address] [place] [phone] Lucy Lizarraga LPN 01/15/2025 10:12 PM CDT - 01/19/2025 5:49 PM CDT Hospital Encounter [address] [phone] Lorene Prince MD [place], Spoorthi, MD Nausea (Primary Dx); Dehydration; Nausea vomiting and diarrhea; Headache disorder; Hypothyroidism due to medication; Hypothyroidism (acquired); Anxiety; Chronic GERD; Malignant neoplasm of left kidney (CMS/HCC) (HCC); Clostridium difficile colitis Discharge Disposition: Discharge to home or self care 01/15/2025 Orders Only [facility] Medicine Oncology [facility] Floor 5 [place] [address] Lorene Prince MD 01/15/2025 Results Follow-Up [facility] Medicine Oncology [address] [facility] [address] [place] [address] Lupis Friend, [place] CBC with auto differential, Comprehensive metabolic panel, Magnesium, Additional followed-up results: 8 01/14/2025 6:40 PM CDT - 01/14/2025 11:59 PM CDT Hospital Encounter [facility] [address] [place] [address] Discharge Disposition: Discharge to home or self care 01/14/2025 Telephone [facility] Oncology [address] [place] [address] 5 [place] [address] Lorene Prince MD 12/30/2024 9:20 AM CDT Office Visit [facility] Orthopaedic Surgery [address] [facility] 1st Floor [address] [place] [address] Ezekiel Holbrook MD Right knee pain, unspecified chronicity (Primary Dx) 12/26/2024 11:00 AM CDT Office Visit [facility] Primary Care at [address] [phone] Akhil Russo MD Hospital discharge follow-up (Primary Dx); Gastroenteritis; FARHANA (acute kidney injury) 12/25/2024 Telephone [facility] Medicine Oncology [address] [place] [address] Floor 5 [place] [address] Lorene Prince MD 12/24/2024 Telephone [facility] Medicine Oncology [address] [place] [address] 5 [place] [address] Lorene Prince MD 12/23/2024 Telephone [facility] Medicine Oncology [address] [place] [address] 5 [place] [address] Lorene Prince MD 12/19/2024 Telephone [facility] Medicine Oncology [address] [place] [phone] Lorene Prince MD 12/18/2024 Orders Only [facility] Oncology [address] [place] [phone] Lorene Prince MD 12/18/2024 Telephone [facility] Oncology [address] [place] [phone] Lorene Prince MD 12/18/2024 Orders Only [facility] Oncology [address] [place] [phone] Lorene Prince MD 12/08/2024 11:15 AM CDT Office Visit [facility] Oncology [address] [place] [phone] Lorene Prince MD Malignant neoplasm of left kidney (CMS/HCC) (HCC) (Primary Dx); Secondary malignant neoplasm of left lung (HCC); Malignant neoplasm of left kidney (HCC) 12/08/2024 10:15 AM CDT Lab [facility] Medicine Oncology Lab [address] [place] [phone] Malignant neoplasm of left kidney (CMS/HCC) (HCC) 12/08/2024 10:00 AM CDT Lab [facility] - Lab Collection [address] [place] [address] Malignant neoplasm of left kidney (CMS/HCC) (HCC) from Last 3 Months Immunizations Immunization Administration [...] 1 Algene Clotting disorder Father's Brother 2 Kris Hearing loss Maternal Grandmother Louise Agarwal Heart [...] Status Comments Father Dalia Father's Brother 1 Heber Father's Brother 2 Weinert Maternal Grandmother Louise Agarwal Mother Jasvir Diaz [...] answer 09/04/2023 How often do you attend [facility] or rastafarian services? Patient unable to answer 09/04/2023 Do you belong to any clubs o r organizations such as anabaptist groups, unions, fraternal or athletic groups, or [...] place to sleep or slept in a snf (including now)? Patient unable to answer 09/04/2023 [...] often do you attend chur ch or rastafarian services? 1 to 4 times per year 01/16/2025 Do you belong to any clubs o r organizations such as anabaptist groups, unions, fraternal or athletic groups, or [...] any time in the past 12 [facility], were you homeless or living in a snf (including now)? No 01/16/2025 [facility] Utilities Answer Date Recorded In the [...] on file Legal Sex Female 8:31 AM ANIMAL RIDES MANAGER Gender Identity Female 12/08/2020 1:45 PM CDT Sexual Orientation Straight 01/22/2019 10 :49 AM CDT Obstetrics History Last Filed Vital Signs Vital Sign Reading Time Taken Comments Blood Pressure 124/83 02/23/2025 1:25 PM CDT Pulse 94 02/23/2025 1:25 PM CDT Temperature 36.2 C (97.2 F) 02/23/2025 1:25 PM CDT Respiratory Rate 18 02/23/2025 1:25 PM CDT Oxygen Saturation 100% 02/23/2025 1:25 PM CDT Inhaled Oxygen Concentration - - Weight 69.5 kg (153 lb 3.2 oz) 02/23/2025 1:25 P M CDT Height 159.8 cm (5' 2.9) 01/23/2025 1:59 PM CDT Body Mass Index 27.22 01/23/2025 1:59 PM CDT Plan of Treatment Health Maintenance Due Date Last Done Comments Albumin Creatinine Ratio, Urine 1960 Foot Exam 1960 Hepatitis B Screening 1978 Covid-19 Vaccine (6 - Pfizer risk 2023- season) 2025 01/14/2024, 09/27/2021, 09/27/2021, Additional history exists Hemoglobin A1C 03/19/2025 09/16/2024, 1108/2023, 08/20/2023, Additional history exists Well Visit 65+ 03/19/2025 03/19/2024, 11/30/2021 Osteoporosis Screening-Bone Density Scan 07/25/2025 07/26/2023 Breast Cancer Screening-Mammogram 09/23/2025 09/23/2024, 10/04/2023, 09/19/2022 Influenza Vaccine (#1) 2025 , 01/17/2023, 02/07/2021 Postponed from 01/05/2025 (Patient declined, but will receive in the future) Dilated Eye Exam 12/26/2025 Postponed f rom 1958 (Patient declined, but will receive in the future) Depression Screening 01/23/2026 01/23/2025, 01/14/2025, 12/26/2024, Additional history exists Fall Risk Assessment 01/23/2026 01/23/2025, 01/19/2025, 03/19/2024, Additional history exists Lipid Panel 02/23/2026 02/23/2025, 0808/2024, 10/27/2024, Additional history exists eGFR 02/23/2026 02/23/2025, 01/05, 01/17/2025, Additional history exists Colon Cancer Screening-Colonoscopy 07/23/2031 07/22/2021, 07/20/2021 DTaP/Tdap/Td Vaccine (3 - Td or Tdap) 08/23/2032 08/23/2022, 11/30/2021 Hepatitis C Screening Completed 01/03/2021 Colon Cancer Screening-CT Colonography Discontinued 07/22/2021, 07/20/2021 Colon Cancer Screening-DNA Stool Discontinued 07/22/2021, 07/20/2021 Colon Cancer Screening-FIT Discontinued 07/22/2021, Colon Cancer Screening-Sigmoidoscopy Discontinued 07/22/2021, 07/20/2021 Pneumococcal vaccine 65+ Completed 01/17/2023 Zoster Vaccine Completed 01/29/2023, 07/05/2022 Cervical Cancer Screening Discontinued 04/11/2023, 10/2022 Procedures Procedure Name Priority Date/Time Associated Diagnosis Comments PROTEIN / CREATININE RATIO, URINE, RANDOM Routine 02/23/2025 1:35 PM CDT Malignant neoplasm of left kidney (CMS/HCC) (HCC) EGFR Routine 02/23/2025 1:12 PM CDT Malignant neoplasm of left kidney (CMS/HCC) (HCC) DIFFERENTIAL AUTO Routine 02/23/2025 1:1 2 PM CDT Malignant neoplasm of left kidney (CMS/HCC) (HCC) PROTIME-INR Routine 02/23/2025 1:12 PM CDT Malignant neoplasm of left kidney (CMS/HCC) (HCC) Secondary malignant neoplasm of left lung (HCC) IRON PROFILE W/ IBC Routine 02/23/2025 1 :12 PM CDT Malignant neoplasm of left kidney (CMS/HCC) (HCC) Secondary malignant neoplasm of left lung (HCC) FERRITIN Routine 02/23/2025 1:12 PM CDT Malignant neoplasm of left kidney (CMS/HCC) (HCC) Secondary malignant neoplasm of left lung (HCC) FOLATE Routine 02/23/2025 1:12 PM CDT Malignant neoplasm of left kidney (CMS/HCC) (HCC) Secondary malignant neoplasm of left lung (HCC) VITAMIN B12 Routine 02/23/2025 1:12 PM CDT Malignant neoplasm of left kidney (CMS/HCC) (HCC) Secondary malignant neoplasm of left lung (HCC) VITAMIN D 25 HYDROXY Routine 02/23/2025 1:12 PM CDT Malignant neoplasm of left kidney (CMS/HCC) (HCC) THYROID FUNCTION CASCADE Routine 02/23/2025 1:12 PM CDT Malignant neoplasm of left kidney (CMS/HCC) (HCC) CBC WITH AUTO DIFFERENTIAL Routine 02/23/2025 1:12 PM CDT Malignant neoplasm of left kidney (CMS/HCC) (HCC) COMPREHENSIVE METABOLIC PANEL Routine 02/23/2025 1:12 PM CDT Malignant neoplasm of left kidney (CMS/HCC) (HCC) LIPID PANEL Routine 02/23/2025 1:12 PM CDT Malignant neoplasm of left kidney (CMS/HCC) (HCC) POCT GLUCOSE DEVICE Routine 01/19/2025 2 :25 PM CDT POCT GLUCOSE DEVICE Routine 01/19/2025 9 :16 AM CDT COMPREHENSIVE METABOLIC PANEL Routine 01/18/2025 9:32 PM CDT EGFR Routine 01/18/2025 9:32 PM CDT DIFFERENTIAL AUTO Routine 01/18/2025 9:3 2 PM CDT URIC ACID Routine 01/18/2025 9:32 PM CDT LACTATE DEHYDROGENASE Routine 01/18/2025 9:32 PM CDT PROTIME-INR Routine 01/18/2025 9:32 PM CDT APTT Routine 01/18/2025 9:32 PM CDT TYPE AND SCREEN Timed 01/18/2025 9:32 PM CDT CBC WITH AUTO DIFFERENTIAL Routine 01/18/2025 9:32 PM CDT POCT GLUCOSE DEVICE Routine 01/18/2025 8 :22 PM CDT POCT GLUCOSE DEVICE Routine 01/18/2025 5 :17 PM CDT POCT GLUCOSE DEVICE Routine 01/18/2025 12:26 PM CDT POCT GLUCOSE DEVICE Routine 01/18/2025 8 :58 AM CDT CREATININE, URINE, RANDOM Routine 01/18/2025 8:46 AM CDT CHLORIDE, URINE, RANDOM Routine 01/18/2025 8:46 AM CDT POTASSIUM, URINE, RANDOM Routine 01/18/2025 8:46 AM CDT SODIUM, URINE, RANDOM Routine 01/18/2025 8:46 AM CDT EGFR Routine 01/17/2025 8:50 PM CDT DIFFERENTIAL AUTO Routine 01/17/2025 8:5 0 PM CDT COMPREHENSIVE METABOLIC PANEL Routine 01/17/2025 8:50 PM CDT CBC WITH AUTO DIFFERENTIAL Routine 01/17/2025 8:50 PM CDT POCT GLUCOSE DEVICE Routine 01/17/2025 8 :05 PM CDT POCT GLUCOSE DEVICE Routine 01/17/2025 5 :56 PM CDT POCT GLUCOSE DEVICE Routine 01/17/2025 12:42 PM CDT POCT GLUCOSE DEVICE Routine 01/17/2025 7 :59 AM CDT EGFR Timed 01/16/2025 10:32 PM CDT DIFFERENTIAL AUTO Timed 01/16/2025 10:32 PM CDT COMPREHENSIVE METABOLIC PANEL Timed 01/16/2025 10:32 PM CDT CBC WITH AUTO DIFFERENTIAL Timed 01/16/2025 10:32 PM CDT POCT GLUCOSE DEVICE Routine 01/16/2025 8 :47 PM CDT POCT GLUCOSE DEVICE Routine 01/16/2025 5 :05 PM CDT POCT GLUCOSE DEVICE Routine 01/16/2025 12:49 PM CDT POCT GLUCOSE DEVICE Routine 01/16/2025 7 :52 AM CDT EGFR Routine 01/15/2025 11:41 PM CDT DIFFERENTIAL AUTO Routine 01/15/2025 11:41 PM CDT URIC ACID Routine 01/15/2025 11:41 PM CDT LACTATE DEHYDROGENASE Routine 01/15/2025 11:41 PM CDT PROTIME-INR Routine 01/15/2025 11:41 PM CDT APTT Routine 01/15/2025 11:41 PM CDT TYPE AND SCREEN Timed 01/15/2025 11:41 PM CDT PHOSPHORUS Routine 01/15/2025 11:41 PM CDT COMPREHENSIVE METABOLIC PANEL Routine 01/15/2025 11:41 PM CDT CBC WITH AUTO DIFFERENTIAL Routine 01/15/2025 11:41 PM CDT POCT GLUCOSE DEVICE Routine 01/15/2025 9 :54 PM CDT POCT GLUCOSE DEVICE Routine 01/15/2025 6 :29 PM CDT RESPIRATORY PATHOGEN PANEL Routine 01/15/2025 2:42 PM CDT CRYPTOSPORIDIUM AND GIARDIA ANTIGEN ASSAY Routine 01/15/2025 2:35 PM CDT STOOL CULTURE STAT 01/15/2025 12:00 PM CDT NOROVIRUS PCR STAT 01/15/2025 12:00 PM CDT C. DIFFICILE TESTING STAT 01/15/2025 12:[address] CHEST ABDOMEN PELVIS W CONTRAST ED Urgent/IP Urgent 01/14/2025 6:53 PM CDT THYROID FUNCTION CASCADE STAT 01/14/2025 6:37 PM CDT EGFR STAT 01/14/2025 6:37 PM CDT COMPREHENSIVE METABOLIC PANEL STAT 01/14/2025 6:37 PM CDT EGFR STAT 01/14/2025 5:00 PM CDT DIFFERENTIAL AUTO STAT 01/14/2025 5:0 0 PM CDT PHOSPHORUS STAT 01/14/2025 5:00 PM CDT MAGNESIUM STAT 01/14/2025 5:00 PM CDT COMPREHENSIVE METABOLIC PANEL STAT 01/14/2025 5:00 PM CDT CBC WITH AUTO DIFFERENTIAL STAT 01/14/2025 5:00 PM CDT DC ARTHROCENTESIS ASPIR&/INJ MAJOR JT/BURSA W/O US Routine 12/30/2024 9:20 AM CDT Right knee pain, unspecified chronicity PROTEIN / CREATININE RATIO, URINE, RANDOM Routine [...] Malignant neoplasm of left kidney (CMS/HCC) (HCC) SCREENING MAMMOGRAM BILATERAL W JUAN Schedule Routine, Read Routine (OP Routine) 09/23/2024 1:19 PM CDT Screening mammogram, encounter for HEMOGLOBIN A1C Routine 09/16/2024 11:20 AM CDT Pre-diabetes DEXA AXIAL SKELETON BONE DENSITY 1 OR MORE SITES Schedule Routine, Read Routine (OP Routine) 07/26/2023 8:08 AM CDT Screening for osteoporosis halfway (current) use of immunomodulator HIGH RISK HPV DNA DETECTION WITH GENOTYPING Routine 04/11/2023 1:[address]NAGER [address] VIRTUAL COLONOSCOPY DIAGNOSTIC W CONTRAST IP Routine 07/22/2021 2:35 PM CDT HEPATITIS C ANTIBODY Routine 01/03/2021 12:02 PM CDT Malignant neoplasm of left kidney (HCC) from Last 3 Months or Most Recently Relevant to Health Maintenance Results * Protein / creatinine ratio, urine, random (02/23/2025 1:35 PM CDT) Pathologist [facility] Protein, ur, quant 28.7 mg/dL Comment: Interpretive Data No reference range established. Current interpretive data was last revised 2018. Creatinine Ur 253.6 mg/dL [facility] Comment: Interpretive Data No reference range established. Current interpretive data was last revised 2018. Protein/creatinin e ratio 113.2 0.0 - 180.0 mg/g CR [facility] Urine 02/23/2025 1:35 PM CDT 02/23/2025 1:59 PM CDT us Lorene Prince MD LAB URINE ORDERABLES F inal Result [facility] [address] [facility] Department [place] [address] * (ABNORMAL) eGFR (02/23/2025 1:12 PM CDT) Pathologist [facility] eGFR 58(L) >=60 mL/min/1. 73 m2 Comment: Interpretive Data [...] interpretive data was last reviewed 2021. Blood 02/23/2025 1:12 PM CDT 02/23/2025 1:31 PM CDT us Lorene Prince MD LAB BLOOD ORDERABLES F inal Result [facility] Department [place] [address] * Differential, auto (02/23/2025 1:12 PM CDT) Neutrophil abs 3.13 1.50 - 6.50 K/cumm Comment:Testing performed by : [facility], [address] [place] [address] Lymphocyte abs 1.71 0.80 - 3.30 K/cumm [facility] Comment:Testing performed by : [facility], [address] [place], [place] [phone] Monocyte abs 0.29 0.20 - 0.80 K/cumm [facility] Comment:Testing performed by : [facility], [address] [place] [address] Eosinophil abs 0.05 0.00 - 0.50 K/cumm [facility] Comment:Testing performed by : [facility], [address] [place] [phone] Basophil abs 0.06 0.00 - 0.10 K/cumm [facility] Comment:Testing performed by : [facility], [address] [place] [address] Neutrophil pct 59.8 % [facility] Comment: Interpretive Data Percent cell count reference ranges are not reported, since discordance with absolute values may lead to misinterpretation of CBC data. Current Interpretive Data was last revised on 2017. Testing performed by: [facility], [address] [place] [phone] Lymphocyte pct 32.6 % [facility] Comment: Interpretive Data Percent cell count reference ranges are not reported, since discordance with absolute values may lead to misinterpretation of CBC data. Current Interpretive Data was last revised on 2017. Testing performed by: [facility], [address] [place] [phone] Monocyte pct 5.6 % [facility] Comment: Interpretive Data Percent cell count reference ranges are not reported, since discordance with absolute values may lead to misinterpretation of CBC data. Current Interpretive Data was last revised on 2017. Testing performed by: [facility], [address] [place] [phone] Eosinophil pct 0.9 % [facility] Comment: Interpretive Data Percent cell count reference ranges are not reported, since discordance with absolute values may lead to misinterpretation of CBC data. Current Interpretive Data was last revised on 2017. Testing performed by: [facility], [address] [place] [phone] Basophil pct 1.2 % [facility] Comment: Interpretive Data Percent cell count reference ranges are not reported, since discordance with absolute values may lead to misinterpretation of CBC data. Current Interpretive Data was last revised on 2017. Testing performed by: [facility], [address] [place] [phone] Blood 02/23/2025 1:12 PM CDT 02/23/2025 1:18 PM CDT us Lorene Prince MD LAB BLOOD ORDERABLES F inal Result [facility] Department [place] [address] * Thyroid Function [place] (02/23/2025 1:12 PM CDT) TSH 0.56 0.30 - 4.20 mcIUnit/mL Blood 02/23/2025 1:12 PM CDT 02/23/2025 1:31 PM CDT Lorene Prince MD LAB BLOOD ORDERABLES F inal Result Performing Organization Address [facility]/ZIP Co de Phone Number [facility] Department [place] [address] * (ABNORMAL) Iron profile w/ IBC (02/23/2025 1:12 PM CDT) Pathologist [facility] Iron 42 35 - 145 mcg/dL TIBC 239(L) 250 - 400 mcg/dL [facility] Transferrin saturation 18(L) 20 - 50 % [facility] Blood 02/23/2025 1:1 2 PM CDT 02/23/2025 1:31 PM CDT Lupis Friend NP LAB BLOOD ORDERABLES Final Result Performing Organization Address [facility] de Phone Number [facility] Department [place] [address] * (ABNORMAL) CBC with auto differential (02/23/2025 1:12 PM CDT) [facility] WBC 5.24 3.80 - 9.90 K/cumm Comment:Testing performed by : [facility], [address] [place] [phone] Hgb 12.7 11.9 - 15.5 g/dL [facility] Comment:Testing performed by : [facility], [address] [place] [phone] Hct 40.6 35.6 - 45.5 % [facility] Comment:Testing performed by : [facility], [address] [place] [phone] Plt 238 150 - 400 K/cumm [facility] Comment:Testing performed by : [facility], [address] [place] [phone] MPV 8.5 6.8 - 10.4 fL [facility] Comment:Testing performed by : [facility], [address] [place], [place] [phone] RBC 5.38(H) 3.90 - 5.20 M/cumm [facility] Comment:Testing performed by : [facility], [address] [place], [place] [phone] MCV 75.5(L) 81.3 - 96.4 fL [facility] Comment:Testing performed by : [facility], [address] [place], [place] [phone] MCH 23.5(L) 27.1 - 33.3 pg [facility] Comment:Testing performed by : [facility], [address] [place], [place] [phone] MCHC 31.2(L) 32.3 - 35.7 g/dL [facility] Comment:Testing performed by : [facility], [address] [place], [place] [phone] RDW CV 20.9(H) 11.1 - 14.9 % [facility] Comment:Testing performed by : [facility], [address] [place], [place] [phone] NRBC abs 0.00 0.00 - 0.01 K/cumm [facility] Comment:Testing performed by : [facility], [address] [place], [place] [phone] Blood 02/23/2025 1:12 PM CDT 02/23/2025 1:18 PM CDT us Lorene Prince MD LAB BLOOD ORDERABLES F inal Result [facility] Department [place] [address] * Vitamin D 25 hydroxy (02/23/2025 1:12 PM CDT) Vitamin D 25-OH 42 30 - 80 ng/mL Blood 02/23/2025 1:12 PM CDT 02/23/2025 1:31 PM CDT Lorene Prince MD LAB BLOOD ORDERABLES F inal Result Performing Organization Address [facility] Co de Phone Number [facility] [place] [address] * Protime-INR (02/23/2025 1:12 PM CDT) PT 11.7 10.2 - 13.5 sec INR 1.04 0.90 - 1.20 [facility] Comment: Interpretive data Oral anticoagulant therapeutic ranges: Venous thromboembolism prophylaxis or treatment: 2.0-3.0 CARDIOLOGY Standard range: 2.0-3.0 High-intensity range: 2.5-3.5 Refer to indication-specific guidelines for appropriate target ranges for prosthetic heart valve replacement. Current interpretive data was last revised on 2019. Blood 02/23/2025 1:12 PM CDT 02/23/2025 1:49 PM CDT Lupis Friend NP LAB BLOOD ORDERABLES Final Result Performing Organization Address [facility] [place] [address] * Folate (02/23/2025 1:12 PM CDT) Pathologist [facility] Folic acid >20.0 >=5.0 ng/mL Blood 02/23/2025 1:1 2 PM CDT 02/23/2025 2:06 PM CDT Lupis Friend NP LAB BLOOD ORDERABLES Final Result Performing Organization Address [facility] Co de Phone Number [facility] [place] [address] * (ABNORMAL) Ferritin (02/23/2025 1:12 PM CDT) Ferritin 158(H) 13 - 150 ng/mL Blood 02/23/2025 1:12 PM CDT 02/23/2025 1:[address] [facility] LAB BLOOD ORDERABLES Final Result Performing Organization Address City/[facility] Co de Phone Number [facility] Department [place] [address] * (ABNORMAL) Vitamin B12 (02/23/2025 1:12 PM CDT) Vitamin B12 >2,000(H) 230 - 1,250 pg/mL Blood 02/23/2025 1:12 PM CDT 02/23/2025 2:[address] [facility] LAB BLOOD ORDERABLES Final Result Performing Organization Address City/[facility] de Phone Number [facility] Department [place] [address] * Lipid panel (02/23/2025 1:12 PM CDT) Pathologist [facility] Cholesterol 150 30 - 199 mg/dL Comment: Interpretive Data [...] Data was last revised on 2017. Triglycerides 98 <=149 mg/dL [facility] Comment: Interpretive Data Ages < or [...] Data was last revised on 2017. HDL 59 >=40 mg/dL [facility] Comment: Interpretive Data Ages < or [...] was last revised on 2017. LDL, calculated 73 <=129 mg/dL [facility] Comment: Interpretive Data Ages < or [...] was last revised on 2023. Non-HDL Cholesterol 91 mg/dL [facility] Comment: Interpretive Data Ages < or [...] revised on 2017. Chol/HDL ratio 3 [facility] Blood 02/23/2025 1:12 PM CDT 02/23/2025 1:31 PM CDT us Lorene Prince MD LAB BLOOD ORDERABLES F inal Result [facility] Department [place] [address] * Comprehensive metabolic panel (02/23/2025 1:12 PM CDT) Sodium 140 135 - 145 mmol/L Potassium, pl 4.0 3.3 - 4.9 mmol/L [facility] Chloride 102 97 - 110 mmol/L [facility] CO2 27 22 - 32 mmol/L [facility] Anion gap 11 2 - 15 mmol/L [facility] BUN 13 6 - 25 mg/dL [facility] Creatinine 1.06 0.60 - 1.10 mg/dL [facility] Glucose 149 70 - 199 mg/dL [facility] Comment: Interpretive Data Fasting glucose >/= [...] interpretive data was last revised 2022. Calcium 9.7 8.5 - 10.3 mg/dL [facility] Bilirubin, total 0.7 0.1 - 1.2 mg/dL [facility] Protein, pl 7.7 6.5 - 8.5 g/dL [facility] Albumin 3.9 3.5 - 5.0 g/dL [facility] Alk phos 80 40 - 130 Units/L [facility] 14 7 - 45 Units/L [facility] AST 25 10 - 45 Units/L [facility] Blood 02/23/2025 1:12 PM CDT 02/23/2025 1:31 PM CDT Lorene Prince MD LAB BLOOD ORDERABLES F inal Result Performing Organization Address [facility] Co de Phone Number [facility] [place] [address] * POCT glucose (01/19/2025 2:25 PM CDT) Glucose, POC 70 70 - 199 mg/dL Blood 01/19/2025 2:25 PM CDT 01/19/2025 2:25 PM CDT Bozena Bonilla MD LAB POCT ORDERABLES - DEVICE Final Result Performing Organization Address [facility] Co de Phone Number [facility] [employer] [place] [address] * POCT glucose (01/19/2025 9:16 AM CDT) Glucose, POC 83 70 - 199 mg/dL Blood 01/19/2025 9:16 AM CDT 01/19/2025 9:16 AM CDT Bozena Bonilla MD LAB POCT ORDERABLES - DEVICE Final Result Performing Organization Address [facility] Co de Phone Number [facility] [place] [address] * (ABNORMAL) eGFR (01/18/2025 9:32 PM CDT) Pathologist [facility] eGFR 54(L) >=60 mL/min/1. 73 m2 Comment: Interpretive Data [...] interpretive data was last reviewed 2021. Blood 01/18/2025 9:32 PM CDT 01/18/2025 9:51 PM CDT us Bozena Bonilla MD LAB BLOOD ORDERABLES Final R esult [facility] [place] [address] * Differential, auto (01/18/2025 9:32 PM CDT) Pathologist [facility] Neutrophil abs 3.16 1.50 - 6.50 K/cumm Imm gran abs 0.04 0.00 - 0.10 K/cumm [facility] Lymphocyte abs 2.89 0.80 - 3.30 K/cumm [facility] Monocyte abs 0.51 0.20 - 0.80 K/cumm [facility] Eosinophil abs 0.07 0.00 - 0.50 K/cumm [facility] Basophil abs 0.01 0.00 - 0.10 K/cumm [facility] Neutrophil pct 47.4 % [facility] Comment: Differential consistent with previous result. Interpretive Data Percent cell count reference ranges are not reported, since discordance with absolute values may lead to misinterpretation of CBC data. Current Interpretive Data was last revised on 2017. Imm gran pct 0.6 % [facility] Comment: Interpretive Data Percent cell count reference ranges are not reported, since discordance with absolute values may lead to misinterpretation of CBC data. Current Interpretive Data was last revised on 2017. Lymphocyte pct 43.3 % [facility] Comment: Interpretive Data Percent cell count reference ranges are not reported, since discordance with absolute values may lead to misinterpretation of CBC data. Current Interpretive Data was last revised on 2017. Monocyte pct 7.6 % [facility] Comment: Interpretive Data Percent cell count reference ranges are not reported, since discordance with absolute values may lead to misinterpretation of CBC data. Current Interpretive Data was last revised on 2017. Eosinophil pct 1.0 % [facility] Comment: Interpretive Data Percent cell count reference ranges are not reported, since discordance with absolute values may lead to misinterpretation of CBC data. Current Interpretive Data was last revised on 2017. Basophil pct 0.1 % [facility] Comment: Interpretive Data Percent cell count reference ranges are not reported, since discordance with absolute values may lead to misinterpretation of CBC data. Current Interpretive Data was last revised on 2017. Blood 01/18/2025 9:32 PM CDT 01/18/2025 9:44 PM CDT us Bozena Bonilla MD LAB BLOOD ORDERABLES Final R esult [facility] Department of Laboratories [place], [place] [id number] * (ABNORMAL) CBC with auto differential (01/18/2025 9:32 PM CDT) WBC 6.68 3.80 - 9.90 K/cumm Hgb 10.5(L) 11.9 - 15.5 g/dL [facility] Hct 32.4(L) 35.6 - 45.5 % [facility] Plt 151 150 - 400 K/cumm [facility] MPV 10.8 9.1 - 12.3 fL [facility] RBC 4.31 3.90 - 5.20 M/cumm [facility] MCV 75.2(L) 81.3 - 96.4 fL [facility] MCH 24.4(L) 27.1 - 33.3 pg [facility] MCHC 32.4 32.3 - 35.7 g/dL [facility] RDW CV 21.2(H) 11.1 - 14.9 % [facility] RDW SD 56.6(H) 35.7 - 48.1 fL [facility] NRBC abs 0.00 0.00 - 0.01 K/cumm [facility] Blood 01/18/2025 9:32 PM CDT 01/18/2025 9:44 PM CDT Bozena Bonilla MD LAB BLOOD ORDERABLES Final R esult Performing Organization Address City/[facility] Co de Phone Number [facility] [place] [address] * aPTT (01/18/2025 9:32 PM CDT) [facility] aPTT 29 26 - 38 sec Comment: Interpretive Data Heparin therapeutic range: 66.0 - 100.0 seconds. Range based on correlation with therapeutic heparin activity range of 0.3 - 0.7 Units/mL. Current interpretive data was last revised on 2023. Blood 01/18/2025 9:32 PM CDT 01/18/2025 9:50 PM CDT Lilian Hunter MD LAB BLOOD ORDERABLES Final Resul t Performing Organization Address [facility] Co de Phone Number [facility] [place] [address] * Protime-INR (01/18/2025 9:32 PM CDT) PT 11.3 10.2 - 13.5 sec INR 1.00 0.90 - 1.20 [facility] Comment: Interpretive data Oral anticoagulant therapeutic ranges: Venous thromboembolism prophylaxis or treatment: 2.0-3.0 CARDIOLOGY Standard range: 2.0-3.0 High-intensity range: 2.5-3.5 Refer to indication-specific guidelines for appropriate target ranges for prosthetic heart valve replacement. Current interpretive data was last revised on 2019. Blood 01/18/2025 9:32 PM CDT 01/18/2025 9:50 PM CDT us Lilian Hunter MD LAB BLOOD ORDERABLES Final Resul t Performing Organization Address City/State/[facility] Co de Phone Number [facility] Department [place] [address] * Type and screen (01/18/2025 9:32 PM CDT) Pathologist [facility] Matthew, indirect Negative ABO Rh A Positive [facility] Blood 01/18/2025 9:32 PM CDT 01/18/2025 9:54 PM CDT Narrative [facility] - 01/18/2025 11:05 PM CDT Has the patient had Daratumumab or Isatuximab in the past 6 months?->Unknown us Lilian Hunter MD LAB BLOOD BANK TEST ORDERABLES F inal Result [facility] Department [place] [address] * Uric acid (01/18/2025 9:32 PM CDT) Pathologist [facility] Uric acid 3.8 2.5 - 7.0 mg/dL Blood 01/18/2025 9:32 PM CDT 01/18/2025 9:44 PM CDT us Lilian Hunter MD LAB BLOOD ORDERABLES Final Resul t Performing Organization Address City/[facility]/ZIP Co de Phone Number [facility] Department [place] [address] * (ABNORMAL) Lactate dehydrogenase (LD) (01/18/2025 9:32 PM CDT) Pathologist [facility] Lactate dehydrogenase (LDH) 262(H) 100 - 250 Units/L Blood 01/18/2025 9:32 PM CDT 01/18/2025 9:44 PM CDT Lilian Hunter MD LAB BLOOD ORDERABLES Final Resul t Performing Organization Address [facility] de Phone Number [facility] Department [place] [address] * (ABNORMAL) Comprehensive metabolic panel (01/18/2025 9:32 PM CDT) Pathologist [facility] Sodium 138 135 - 145 mmol/L Potassium, pl 4.4 3.3 - 4.9 mmol/L [facility] Chloride 106 97 - 110 mmol/L [facility] CO2 26 22 - 32 mmol/L [facility] Anion gap 6 2 - 15 mmol/L [facility] BUN 9 6 - 25 mg/dL [facility] Creatinine 1.13(H) 0.60 - 1.10 mg/dL [facility] Glucose 105 70 - 199 mg/dL [facility] Comment: Interpretive Data Fasting glucose >/= [...] interpretive data was last revised 2022. Calcium 8.9 8.5 - 10.3 mg/dL [facility] Bilirubin, total 0.4 0.1 - 1.2 mg/dL [facility] Protein, pl 6.2(L) 6.5 - 8.5 g/dL [facility] Albumin 3.2(L) 3.5 - 5.0 g/dL [facility] Alk phos 51 40 - 130 Units/L [facility] ALT 15 7 - 45 Units/L [facility] AST 26 10 - 45 Units/L [facility] Blood 01/18/2025 9:32 PM CDT 01/18/2025 9:44 PM CDT Bozena Bonilla MD LAB BLOOD ORDERABLES Final R esult Performing Organization Address [facility] Co de Phone Number [facility] [place] [address] * POCT glucose (01/18/2025 8:22 PM CDT) Glucose, POC 108 70 - 199 mg/dL Blood 01/18/2025 8:22 PM CDT 01/18/2025 8:22 PM CDT Bozena Bonilla MD LAB POCT ORDERABLES - DEVICE Final Result Performing Organization Address [facility] Co de Phone Number [facility] [place] [address] * POCT glucose (01/18/2025 5:17 PM CDT) Glucose, POC 80 70 - 199 mg/dL Blood 01/18/2025 5:17 PM CDT 01/18/2025 5:17 PM CDT us Bozena Bonilla MD LAB POCT ORDERABLES - DEVICE Final Result Performing Organization Address [facility] Co de Phone Number [facility] [place] [address] * POCT glucose (01/18/2025 12:26 PM CDT) Glucose, POC 92 70 - 199 mg/dL Blood 01/18/2025 12:2 6 PM CDT 01/18/2025 12:26 PM CDT Bozena Bonilla MD LAB POCT ORDERABLES - DEVICE Final Result Performing Organization Address [facility] Phone Number [facility] [place] [address] * POCT glucose (01/18/2025 8:58 AM CDT) Glucose, POC 86 70 - 199 mg/dL Blood 01/18/2025 8:58 AM CDT 01/18/2025 8:58 AM CDT Bozena Bonilla MD LAB POCT ORDERABLES - DEVICE Final Result Performing Organization Address [facility] de Phone Number [facility] [place] [address] * Sodium, urine, random (01/18/2025 8:46 AM CDT) Sodium, ur 121 mmol/L Comment: Interpretive Data No reference range established. Current interpretive data was last revised 2018. Urine (Urine, Clean Catch) 01/18/2025 8:46 AM CDT 01/18/2025 9:02 AM CDT Bozena Bonilla MD LAB URINE ORDERABLES Final R esult Performing Organization Address [facility] de Phone Number [facility] [place] [address] * Potassium, urine, random (01/18/2025 8:46 AM CDT) Potassium conc, ur 14.8 mmol/L Comment: Interpretive Data No reference range established. Current interpretive data was last revised 2018. Urine (Urine, Clean Catch) 01/18/2025 8:46 AM CDT 01/18/2025 9:02 AM CDT us Bozena Bonilla MD LAB URINE ORDERABLES Final R esult Performing Organization Address [facility] de Phone Number [facility] [place] [address] * Creatinine, urine, random (01/18/2025 8:46 AM CDT) Creatinine Ur 45.8 mg/dL Comment: Interpretive Data No reference range established. Current interpretive data was last revised 2018. Urine 01/18/2025 8:46 AM CDT 01/18/2025 9:02 AM CDT Bozena Bonilla MD LAB URINE ORDERABLES Final R esult Performing Organization Address [facility] de Phone Number [facility] [place] [address] * Chloride, urine, random (01/18/2025 8:46 AM CDT) Chloride, ur 120 mmol/L Comment: Interpretive Data No reference range established. Current interpretive data was last revised 2018. Urine (Urine, Clean Catch) 01/18/2025 8:46 AM CDT 01/18/2025 9:02 AM CDT us Bozena Bonilla MD LAB URINE ORDERABLES Final R esult Performing Organization Address [facility] de Phone Number [facility] [place] [address] * (ABNORMAL) eGFR (01/17/2025 8:50 PM CDT) Pathologist [facility] eGFR 48(L) >=60 mL/min/1. 73 m2 Comment: Interpretive Data [...] interpretive data was last reviewed 2021. Blood 01/17/2025 8:50 PM CDT 01/17/2025 9:04 PM CDT us Bozena Bonilla MD LAB BLOOD ORDERABLES Final R esult [facility] [place] [address] * Differential, auto (01/17/2025 8:50 PM CDT) [facility] Neutrophil abs 2.81 1.50 - 6.50 K/cumm Imm gran abs 0.02 0.00 - 0.10 K/cumm [facility] Lymphocyte abs 2.66 0.80 - 3.30 K/cumm [facility] Monocyte abs 0.57 0.20 - 0.80 K/cumm [facility] Eosinophil abs 0.05 0.00 - 0.50 K/cumm [facility] Basophil abs 0.02 0.00 - 0.10 K/cumm [facility] Neutrophil pct 45.9 % [facility] Comment: Differential consistent with previous result. Interpretive Data Percent cell count reference ranges are not reported, since discordance with absolute values may lead to misinterpretation of CBC data. Current Interpretive Data was last revised on 2017. Imm gran pct 0.3 % [facility] Comment: Interpretive Data Percent cell count reference ranges are not reported, since discordance with absolute values may lead to misinterpretation of CBC data. Current Interpretive Data was last revised on 2017. Lymphocyte pct 43.4 % [facility] Comment: Interpretive Data Percent cell count reference ranges are not reported, since discordance with absolute values may lead to misinterpretation of CBC data. Current Interpretive Data was last revised on 2017. Monocyte pct 9.3 % [facility] Comment: Interpretive Data Percent cell count reference ranges are not reported, since discordance with absolute values may lead to misinterpretation of CBC data. Current Interpretive Data was last revised on 2017. Eosinophil pct 0.8 % [facility] Comment: Interpretive Data Percent cell count reference ranges are not reported, since discordance with absolute values may lead to misinterpretation of CBC data. Current Interpretive Data was last revised on 2017. Basophil pct 0.3 % [facility] Comment: Interpretive Data Percent cell count reference ranges are not reported, since discordance with absolute values may lead to misinterpretation of CBC data. Current Interpretive Data was last revised on 2017. Blood 01/17/2025 8:50 PM CDT 01/17/2025 9:04 PM CDT Bozena Bonilla MD LAB BLOOD ORDERABLES Final R esult [facility] Department [place] [address] * (ABNORMAL) CBC with auto differential (01/17/2025 8:50 PM CDT) WBC 6.13 3.80 - 9.90 K/cumm Hgb 10.8(L) 11.9 - 15.5 g/dL [facility] Hct 34.5(L) 35.6 - 45.5 % [facility] Plt 136(L) 150 - 400 K/cumm [facility] MPV 11.1 9.1 - 12.3 fL [facility] RBC 4.57 3.90 - 5.20 M/cumm [facility] MCV 75.5(L) 81.3 - 96.4 fL [facility] MCH 23.6(L) 27.1 - 33.3 pg [facility] MCHC 31.3(L) 32.3 - 35.7 g/dL [facility] RDW CV 21.1(H) 11.1 - 14.9 % [facility] RDW SD 56.1(H) 35.7 - 48.1 fL [facility] NRBC abs 0.00 0.00 - 0.01 K/cumm [facility] Blood 01/17/2025 8:50 PM CDT 01/17/2025 9:04 PM CDT Bozena Bonilla MD LAB BLOOD ORDERABLES Final R esult [facility] Department [place] [address] * (ABNORMAL) Comprehensive metabolic panel (01/17/2025 8:50 PM CDT) Sodium 144 135 - 145 mmol/L Potassium, pl 4.3 3.3 - 4.9 mmol/L [facility] Chloride 110 97 - 110 mmol/L [facility] CO2 26 22 - 32 mmol/L [facility] Anion gap 8 2 - 15 mmol/L [facility] BUN 9 6 - 25 mg/dL [facility] Creatinine 1.25(H) 0.60 - 1.10 mg/dL [facility] Glucose 117 70 - 199 mg/dL [facility] Comment: Interpretive Data Fasting glucose >/= [...] interpretive data was last revised 2022. Calcium 8.9 8.5 - 10.3 mg/dL [facility] Bilirubin, total 0.4 0.1 - 1.2 mg/dL [facility] Protein, pl 6.4(L) 6.5 - 8.5 g/dL [facility] Albumin 3.1(L) 3.5 - 5.0 g/dL [facility] Alk phos 50 40 - 130 Units/L [facility] ALT 12 7 - 45 Units/L [facility] AST 22 10 - 45 Units/L [facility] Blood 01/17/2025 8:50 PM CDT 01/17/2025 9:04 PM CDT Bozena Bonilla MD LAB BLOOD ORDERABLES Final R esult Performing Organization Address City/[facility]/ZIP Co de Phone Number [facility] [employer] [place] [address] * POCT glucose (01/17/2025 8:05 PM CDT) Glucose, POC 113 70 - 199 mg/dL Blood 01/17/2025 8:05 PM CDT 01/17/2025 8:05 PM CDT Bozena Bonilla MD LAB POCT ORDERABLES - DEVICE Final Result Performing Organization Address City/[facility]/ZIP Co de Phone Number [facility] [employer] [place] [address] * POCT glucose (01/17/2025 5:56 PM CDT) Glucose, POC 110 70 - 199 mg/dL Blood 01/17/2025 5:56 PM CDT 01/17/2025 5:56 PM CDT Bozena Bonilla MD LAB POCT ORDERABLES - DEVICE Final Result Performing Organization Address [facility] Co de Phone Number [facility] [place] [address] * POCT glucose (01/17/2025 12:42 PM CDT) Glucose, POC 106 70 - 199 mg/dL Blood 01/17/2025 12:4 2 PM CDT 01/17/2025 12:42 PM CDT Bozena Bonilla MD LAB POCT ORDERABLES - DEVICE Final Result Performing Organization Address [facility] de Phone Number [facility] [place] [address] * POCT glucose (01/17/2025 7:59 AM CDT) Glucose, POC 89 70 - 199 mg/dL Blood 01/17/2025 7:59 AM CDT 01/17/2025 7:59 AM CDT Bozena Bonilla MD LAB POCT ORDERABLES - DEVICE Final Result Performing Organization Address [facility] de Phone Number [facility] Department [place] [address] * (ABNORMAL) eGFR (01/16/2025 10:32 PM CDT) eGFR 50(L) >=60 mL/min/1. 73 m2 Comment: Interpretive Data [...] interpretive data was last reviewed 2021. Blood 01/16/2025 10:3 2 PM CDT 01/16/2025 10:46 PM CDT us Bozena Bonilla MD LAB BLOOD ORDERABLES Final R esult [facility] Department [place] [address] * Differential, auto (01/16/2025 10:32 PM CDT) Neutrophil abs 3.02 1.50 - 6.50 K/cumm Imm gran abs 0.02 0.00 - 0.10 K/cumm [facility] Lymphocyte abs 2.38 0.80 - 3.30 K/cumm [facility] Monocyte abs 0.61 0.20 - 0.80 K/cumm [facility] Eosinophil abs 0.06 0.00 - 0.50 K/cumm [facility] Basophil abs 0.01 0.00 - 0.10 K/cumm [facility] Neutrophil pct 49.5 % [facility] Comment: Interpretive Data Percent cell count reference ranges are not reported, since discordance with absolute values may lead to misinterpretation of CBC data. Current Interpretive Data was last revised on 2017. Imm gran pct 0.3 % [facility] Comment: Interpretive Data Percent cell count reference ranges are not reported, since discordance with absolute values may lead to misinterpretation of CBC data. Current Interpretive Data was last revised on 2017. Lymphocyte pct 39.0 % [facility] Comment: Interpretive Data Percent cell count reference ranges are not reported, since discordance with absolute values may lead to misinterpretation of CBC data. Current Interpretive Data was last revised on 2017. Monocyte pct 10.0 % [facility] Comment: Interpretive Data Percent cell count reference ranges are not reported, since discordance with absolute values may lead to misinterpretation of CBC data. Current Interpretive Data was last revised on 2017. Eosinophil pct 1.0 % [facility] Comment: Interpretive Data Percent cell count reference ranges are not reported, since discordance with absolute values may lead to misinterpretation of CBC data. Current Interpretive Data was last revised on 2017. Basophil pct 0.2 % [facility] Comment: Interpretive Data Percent cell count reference ranges are not reported, since discordance with absolute values may lead to misinterpretation of CBC data. Current Interpretive Data was last revised on 2017. Blood 01/16/2025 10:3 2 PM CDT 01/16/2025 10:46 PM CDT Bozena Bonilla MD LAB BLOOD ORDERABLES Final R esult [facility] Department [place] [address] * (ABNORMAL) CBC with auto differential (01/16/2025 10:32 PM CDT) WBC 6.10 3.80 - 9.90 K/cumm Hgb 10.4(L) 11.9 - 15.5 g/dL [facility] Hct 33.9(L) 35.6 - 45.5 % [facility] Plt 134(L) 150 - 400 K/cumm [facility] MPV 11.6 9.1 - 12.3 fL [facility] RBC 4.39 3.90 - 5.20 M/cumm [facility] MCV 77.2(L) 81.3 - 96.4 fL [facility] MCH 23.7(L) 27.1 - 33.3 pg [facility] MCHC 30.7(L) 32.3 - 35.7 g/dL [facility] RDW CV 21.2(H) 11.1 - 14.9 % [facility] RDW SD 57.7(H) 35.7 - 48.1 fL [facility] NRBC abs 0.00 0.00 - 0.01 K/cumm [facility] Blood 01/16/2025 10:3 2 PM CDT 01/16/2025 10:46 PM CDT Bozena Bonilla MD LAB BLOOD ORDERABLES Final R esult [facility] Department [place] [address] * (ABNORMAL) Comprehensive metabolic panel (01/16/2025 10:32 PM CDT) Sodium 144 135 - 145 mmol/L Potassium, pl 4.6 3.3 - 4.9 mmol/L [facility] Chloride 110 97 - 110 mmol/L [facility] CO2 26 22 - 32 mmol/L [facility] Anion gap 8 2 - 15 mmol/L [facility] BUN 6 6 - 25 mg/dL [facility] Creatinine 1.20(H) 0.60 - 1.10 mg/dL [facility] Glucose 125 70 - 199 mg/dL [facility] Comment: Interpretive Data Fasting glucose >/= [...] interpretive data was last revised 2022. Calcium 9.0 8.5 - 10.3 mg/dL [facility] Bilirubin, total 0.5 0.1 - 1.2 mg/dL [facility] Protein, pl 6.3(L) 6.5 - 8.5 g/dL [facility] Albumin 3.1(L) 3.5 - 5.0 g/dL [facility] Alk phos 48 40 - 130 Units/L [facility] ALT 13 7 - 45 Units/L [facility] AST 26 10 - 45 Units/L [facility] Blood 01/16/2025 10:3 2 PM CDT 01/16/2025 10:46 PM CDT Bozena Bonilla MD LAB BLOOD ORDERABLES Final R esult Performing Organization Address City/[facility] Co de Phone Number [facility] [place] [address] * POCT glucose (01/16/2025 8:47 PM CDT) Glucose, POC 111 70 - 199 mg/dL Blood 01/16/2025 8:47 PM CDT 01/16/2025 8:47 PM CDT Bozena Bonilla MD LAB POCT ORDERABLES - DEVICE Final Result Performing Organization Address [facility] de Phone Number [facility] [place] [address] * POCT glucose (01/16/2025 5:05 PM CDT) Glucose, POC 111 70 - 199 mg/dL Blood 01/16/2025 5:05 PM CDT 01/16/2025 5:05 PM CDT Bozena Bonilla MD LAB POCT ORDERABLES - DEVICE Final Result Performing Organization Address City/[facility] Co de Phone Number [facility] [place] [address] * POCT glucose (01/16/2025 12:49 PM CDT) Glucose, POC 96 70 - 199 mg/dL Blood 01/16/2025 12:4 9 PM CDT 01/16/2025 12:49 PM CDT us Bozena Bonilla MD LAB POCT ORDERABLES - DEVICE Final Result Performing Organization Address City/[facility]/ZIP Co de Phone Number [facility] [place] [address] * POCT glucose (01/16/2025 7:52 AM CDT) Glucose, POC 83 70 - 199 mg/dL Blood 01/16/2025 7:52 AM CDT 01/16/2025 7:52 AM CDT Lorene Prince MD LAB POCT ORDERABLES - DEVICE Final Result Performing Organization Address [facility] de Phone Number [facility] [place] [address] * (ABNORMAL) eGFR (01/15/2025 11:41 PM CDT) [facility] eGFR 54(L) >=60 mL/min/1. 73 m2 Comment: Interpretive Data [...] interpretive data was last reviewed 2021. Blood 01/15/2025 11:4 1 PM CDT 01/16/2025 12:15 AM CDT us Lilian Hunter MD LAB BLOOD ORDERABLES Final Resul t [facility] Department [place] [address] * Differential, auto (01/15/2025 11:41 PM CDT) Neutrophil abs 2.01 1.50 - 6.50 K/cumm Imm gran abs 0.02 0.00 - 0.10 K/cumm [facility] Lymphocyte abs 2.12 0.80 - 3.30 K/cumm [facility] Monocyte abs 0.60 0.20 - 0.80 K/cumm [facility] Eosinophil abs 0.08 0.00 - 0.50 K/cumm [facility] Basophil abs 0.01 0.00 - 0.10 K/cumm [facility] Neutrophil pct 41.5 % [facility] Comment: Interpretive Data Percent cell count reference ranges are not reported, since discordance with absolute values may lead to misinterpretation of CBC data. Current Interpretive Data was last revised on 2017. Imm gran pct 0.4 % [facility] Comment: Interpretive Data Percent cell count reference ranges are not reported, since discordance with absolute values may lead to misinterpretation of CBC data. Current Interpretive Data was last revised on 2017. Lymphocyte pct 43.8 % [facility] Comment: Interpretive Data Percent cell count reference ranges are not reported, since discordance with absolute values may lead to misinterpretation of CBC data. Current Interpretive Data was last revised on 2017. Monocyte pct 12.4 % [facility] Comment: Interpretive Data Percent cell count reference ranges are not reported, since discordance with absolute values may lead to misinterpretation of CBC data. Current Interpretive Data was last revised on 2017. Eosinophil pct 1.7 % [facility] Comment: Interpretive Data Percent cell count reference ranges are not reported, since discordance with absolute values may lead to misinterpretation of CBC data. Current Interpretive Data was last revised on 2017. Basophil pct 0.2 % [facility] Comment: Interpretive Data Percent cell count reference ranges are not reported, since discordance with absolute values may lead to misinterpretation of CBC data. Current Interpretive Data was last revised on 2017. Blood 01/15/2025 11:4 1 PM CDT 01/16/2025 12:15 AM CDT Lilian Hunter MD LAB BLOOD ORDERABLES Final Resul t Performing Organization Address [facility] de Phone Number [facility] Department [place] [address] * (ABNORMAL) CBC with auto differential (01/15/2025 11:41 PM CDT) WBC 4.84 3.80 - 9.90 K/cumm Hgb 10.9(L) 11.9 - 15.5 g/dL [facility] Hct 34.9(L) 35.6 - 45.5 % [facility] Plt 132(L) 150 - 400 K/cumm [facility] MPV Not Measured 9.1 - 12.3 fL [facility] RBC 4.58 3.90 - 5.20 M/cumm [facility] MCV 76.2(L) 81.3 - 96.4 fL [facility] MCH 23.8(L) 27.1 - 33.3 pg [facility] MCHC 31.2(L) 32.3 - 35.7 g/dL [facility] RDW CV 21.2(H) 11.1 - 14.9 % [facility] RDW SD 57.7(H) 35.7 - 48.1 fL [facility] NRBC abs 0.00 0.00 - 0.01 K/cumm [facility] Blood 01/15/2025 11:4 1 PM CDT 01/16/2025 12:15 AM CDT Lilian Hutner MD LAB BLOOD ORDERABLES Final Resul t Performing Organization Address [facility] [place] [address] * aPTT (01/15/2025 11:41 PM CDT) aPTT 35 26 - 38 sec Comment: Interpretive Data Heparin therapeutic range: 66.0 - 100.0 seconds. Range based on correlation with therapeutic heparin activity range of 0.3 - 0.7 Units/mL. Current interpretive data was last revised on 2023. Blood 01/15/2025 11:4 1 PM CDT 01/16/2025 12:26 AM CDT us Lilian Hunter MD LAB BLOOD ORDERABLES Final Resul t Performing Organization Address [facility] [place] [place] [address] * Protime-INR (01/15/2025 11:41 PM CDT) PT 11.3 10.2 - 13.5 sec INR 1.00 0.90 - 1.20 [facility] Comment: Interpretive data Oral anticoagulant therapeutic ranges: Venous thromboembolism prophylaxis or treatment: 2.0-3.0 CARDIOLOGY Standard range: 2.0-3.0 High-intensity range: 2.5-3.5 Refer to indication-specific guidelines for appropriate target ranges for prosthetic heart valve replacement. Current interpretive data was last revised on 2019. Blood 01/15/2025 11:4 1 PM CDT 01/16/2025 12:26 AM CDT us Lilian Hunter MD LAB BLOOD ORDERABLES Final Resul t Performing Organization Address [facility] [place] [address] * Type and screen (01/15/2025 11:41 PM CDT) ABO Rh A Positive Matthew, indirect Negative [facility] Blood 01/15/2025 11:4 1 PM CDT 01/16/2025 12:13 AM CDT Narrative [facility] - 01/16/2025 1:00 AM CDT Has the patient had Daratumumab or Isatuximab in the past 6 months?->Unknown Lilian Hunter MD LAB BLOOD BANK TEST ORDERABLES F inal Result Performing Organization Address [facility] Co de Phone Number [facility] [place] [address] * Uric acid (01/15/2025 11:41 PM CDT) Pathologist [facility] Uric acid 4.5 2.5 - 7.0 mg/dL Blood 01/15/2025 11:4 1 PM CDT 01/16/2025 12:15 AM CDT Lilian Hunter MD LAB BLOOD ORDERABLES Final Resul t Performing Organization Address [facility] de Phone Number [facility] [place] [address] * (ABNORMAL) Phosphorus (01/15/2025 11:41 PM CDT) Pathologist [facility] Phosphorus, pl 2.1(L) 2.3 - 4.5 mg/dL Blood 01/15/2025 11:4 1 PM CDT 01/16/2025 12:15 AM CDT Lilian Hunter MD LAB BLOOD ORDERABLES Final Resul t Performing Organization Address [facility] [place] [address] * (ABNORMAL) Lactate dehydrogenase (LD) (01/15/2025 11:41 PM CDT) Lactate dehydrogenase (LDH) 309(H) 100 - 250 Units/L Comment:Hemolyzed; result ma y be falsely elevated Blood 01/15/2025 11:4 1 PM CDT 01/16/2025 12:15 AM CDT us Lilian Hunter MD LAB BLOOD ORDERABLES Final Resul t [facility] [place] [address] * (ABNORMAL) Comprehensive metabolic panel (01/15/2025 11:41 PM CDT) Sodium 140 135 - 145 mmol/L Potassium, pl 4.0 3.3 - 4.9 mmol/L [facility] Comment:Hemolyzed; Potassium value may be falsely elevated by as much as 0.3-0.5 mmol/L. Suggest redraw and reanalysis. Chloride 109 97 - 110 mmol/L [facility] CO2 22 22 - 32 mmol/L [facility] Anion gap 9 2 - 15 mmol/L [facility] BUN 10 6 - 25 mg/dL [facility] Creatinine 1.13(H) 0.60 - 1.10 mg/dL [facility] Glucose 97 70 - 199 mg/dL [facility] Comment: Interpretive Data Fasting glucose >/= [...] interpretive data was last revised 2022. Calcium 8.1(L) 8.5 - 10.3 mg/dL [facility] Bilirubin, total 0.6 0.1 - 1.2 mg/dL [facility] Protein, pl 6.1(L) 6.5 - 8.5 g/dL [facility] Albumin 3.0(L) 3.5 - 5.0 g/dL [facility] Alk phos 57 40 - 130 Units/L [facility] ALT 14 7 - 45 Units/L [facility] AST 31 10 - 45 Units/L [facility] Comment:Hemolyzed; result ma y be falsely elevated Blood 01/15/2025 11:4 1 PM CDT 01/16/2025 12:15 AM CDT Lilian Hunter MD LAB BLOOD ORDERABLES Final Resul t Performing Organization Address [facility] Co de Phone Number [facility] [place] [address] * POCT glucose (01/15/2025 9:54 PM CDT) [facility] Glucose, POC 94 70 - 199 mg/dL Blood 01/15/2025 9:54 PM CDT 01/15/2025 9:54 PM CDT us Lorene Prince MD LAB POCT ORDERABLES - DEVICE Final Result Performing Organization Address [facility] de Phone Number [facility] [place] [address] * POCT glucose (01/15/2025 6:29 PM CDT) [facility] Glucose, POC 141 70 - 199 mg/dL Blood 01/15/2025 6:29 PM CDT 01/15/2025 6:29 PM CDT Lorene Prince MD LAB POCT ORDERABLES - DEVICE Final Result Performing Organization Address [facility] [place] [address] * Respiratory pathogen panel Nasopharyngeal (01/15/2025 2:42 PM CDT) [facility] Influenza A RNA Not Detected Not Detected Influenza B RNA Not Detected Not Detected [facility] RSV RNA Not Detected Not Detected [facility] COVID-19 RNA Not Detected Not Detected [facility] Coronavirus 229E RNA Not Detected Not Detected [facility] Coronavirus HKU1 RNA Not Detected Not Detected [facility] Coronavirus NL63 RNA Not Detected Not Detected [facility] Coronavirus OC43 RNA Not Detected Not Detected [facility] Adenovirus DNA Not Detected Not Detected [facility] Metapneumovirus RNA Not Detected Not Detected [facility] Rhinovirus/Enterov irus RNA Not Detected Not Detected [facility] Parainfluenza 1 RNA Not Detected Not Detected [facility] Parainfluenza 2 RNA Not Detected Not Detected [facility] Parainfluenza 3 RNA Not Detected Not Detected [facility] Parainfluenza 4 RNA Not Detected Not Detected [facility] B. pertussis DNA Not Detected Not Detected [facility] B. parapertussis DNA Not Detected Not Detected [facility] C. pneumoniae DNA Not Detected Not Detected [facility] M. pneumoniae DNA Not Detected Not Detected [facility] Nasopharyngeal 01/15/2025 2: 42 PM CDT 01/15/2025 2:51 PM CDT Narrative [facility] - 01/15/2025 4:25 PM CDT Is the Patient experiencing symptoms consistent with COVID?->Yes Surveillance testing for transplant patient?->No Interpretive Data [facility] [employer] FilmArray Respiratory Panel (RP2.1) assay is a multiplexed real-time PCR based nucleic acid test capable of simultaneous qualitative detection and identification of multiple respiratory viral and bacterial nucleic acids, including SARS Coronavirus 2 (the causative agent of COVID-19). The following bacteria, viruses and virus subtypes can be identified using the [employer] RP2.1 assay: Bordetella pertussis, Bordetella parapertussis, Chlamydia pneumoniae, Mycoplasma pneumoniae, Adenovirus, SARS Coronavirus 2, seasonal coronaviruses (Coronavirus HKU1, Coronavirus NL63, Coronavirus 229E, and Coronavirus OC43), Influenza A, Influenza A subtype H1, Influenza A subtype H3, Influenza A subtype 2009 H1, Influenza B, Metapneumovirus, Parainfluenza 1, Parainfluenza 2, Parainfluenza 3, Parainfluenza 4, RSV, Rhinovirus/Enterovirus. Due to the genetic similarity between human Rhinovirus and Enterovirus, the FilmArray RP2.1 assay cannot reliably differentiate them. Coronavirus OC43 may cross-react with some isolates of Coronavirus HKU1. A dual positive result may be due to cross-reactivity or may indicate a co- infection. The detection and identification of specific viral and bacterial nucleic acids from individuals exhibiting signs and symptoms of a respiratory infection aids in the diagnosis of respiratory infection if used in conjunction with other clinical and epidemiological information. The results of this test should not be used as the sole basis for diagnosis, treatment, or other management decisions. Negative results in the setting of a respiratory illness may be due to infection with pathogens that are not detected by this test. Positive results do not rule out infection/co-infection with other organisms. The agent(s) detected by the Film[employer] RP2.1 may not be the definite cause of disease. Additional testing (lab, imaging, etc.) may be necessary when evaluating a patient with possible respiratory tract infection. The FilmArray RP2.1 assay has FDA clearance for testing of ELECTRICAL RESEARCH ENGINEER swabs. The performance of additional specimen types has been assessed by the performing laboratory. The performance characteristics of this assay have been determined by [facility] Molecular Infectious Disease Laboratory. Current interpretive data was last revised on 22. Lilian Hunter MD LAB MICROBIOLOGY - GENERAL ORDER ROJAS Final Result [facility] One [facility] Department [place] [address] * Cryptosporidium and Giardia antigen assay Stool (01/15/2025 2:35 PM CDT) Giardia Ag Negative Negative Cryptosporidium Ag Negative Negative [facility] Comment: Interpretive data: Testing performed by the [facility] Microbiology Laboratory using an immunoassay that detects Cryptosporidium and Giardia antigens in stool specimens. If comprehensive examination for ova and parasites is required, please request Ova and Parasite Examination. Stool 01/15/2025 2:35 PM CDT 01/15/2025 4:41 PM CDT Carmen Pace ELECTRICAL RESEARCH ENGINEER LAB MICROBIOLOGY - GENER AL ORDERABLES Final Result Performing Organization Address [facility] [place] [address] * (ABNORMAL) C. difficile testing Stool (01/15/2025 12:00 PM CDT) [facility] Result Positive Negative Toxin Result Positive Negative [facility] C. diff result Positive, free toxin(A) Negative, free toxin [facility] C. diff interp Toxigenic Clostridioides (Clostridium) difficile detected. Analysis was performed using a two-step methodology using glutamate dehydrogenase antigen detection followed by detection of C. difficile toxin(s). [facility] Stool 01/15/2025 12:0 0 PM CDT 01/15/2025 1:25 PM CDT Claudine Pate NP LAB MICROBIOLOGY - GENERA L ORDERABLES Final Result Performing Organization Address [facility] de Phone Number [facility] Department [place] [address] * Norovirus PCR Stool (01/15/2025 12:00 PM CDT) [facility] Norovirus GI RNA Not Detected Not Detected [facility] Norovirus GII RNA Not Detected Not Detected [facility] Comment: Interpretive data: Testing performed at the [facility] Laboratory using the [employer] Xpert Norovirus Assay. This assay uses nucleic acid amplification to detect RNA from norovirus. This test is cleared by the [place] Food and Drug Administration for unformed stool specimens. The performance characteristics for unformed stool specimens have been verified by the performing laboratory. The performance characteristics of rectal swab specimens have also been validated and verified by the performing laboratory. Positive Xpert Norovirus results do not rule out other causes of infectious diarrhea. Assay interference may be observed in the presence of Barium sulfate and Benzalkonium chloride. Mutations or polymorphisms in primer or probe binding regions may affect detection of new or unknown norovirus variants resulting in a false negative result. Results from the Xpert Norovirus Assay should be interpreted in conjunction with other laboratory and clinical data available to the clinician. Current interpretive data was last revised on 2024. Stool 01/15/2025 12:0 0 PM CDT 01/15/2025 2:56 PM CDT Carmen Pace NP LAB MICROBIOLOGY - GENER AL ORDERABLES Final Result Performing Organization Address City/[facility] Co de Phone Number [facility] [place] [address] [facility] * Stool culture Stool (01/15/2025 12:00 PM CDT) Direct Specimen Exam Shiga Toxin Testing: Antigen detection assay for Shiga-toxin NEGATIVE for Shiga Toxin 1 and Shiga Toxin 2. Report Final Report: No growth of enteric bacterial pathogens [facility] Stool 01/15/2025 12:0 0 PM CDT 01/15/2025 1:24 PM CDT Narrative [facility] - 01/19/2025 9:26 AM CDT Specimen received in a sterile container. Testing performed by [facility] Laboratory ([phone]). Routine stool cultures include procedures to detect Salmonella, Shigella, Edwardsiella, Aeromonas, Pleisiomonas, Campylobacter, Yersinia, E. coli O157, and Shiga-like toxins. Vibrio is cultured only upon special request. If Vibrio is suspected, please call the laboratory at [phone]. Interpretive data was last updated September 11, 2016. Carmen Pace NP LAB MICROBIOLOGY - GENER AL ORDERABLES Final Result Performing Organization Address City/[facility] Co de Phone Number [facility] [place] [address] * CT Chest Abdomen Pelvis W Contrast (01/14/2025 6:53 PM CDT) Anatomical Region Laterality Modality Body N/A Computed Tomogra phy 01/14/2025 7:11 PM CDT Impressions 01/14/2025 7:48 PM CDT 1. Mild thickening of the transverse and descending colon, is favored to be related to underdistention, although mild colitis could appear similar. Recommend correlation with laboratory studies and clinical presentation. There is otherwise no acute intra-abdominal abnormality. 2. Stable metastatic pulmonary nodules and left hilar lymphadenopathy. No evidence of recurrent or metastatic disease in the abdomen or pelvis. Dictated by: Cheikh Junior MD The radiology attending physician has personally reviewed this study, and had reviewed and/or edited this written report and agrees with it. 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 Abdominal pain and diarrhea. TECHNIQUE: Transaxial computed tomographic images of the chest, abdomen and pelvis were obtained with intravenous contrast according to the standard protocol after the administration of 68 mL Opti-Ray 350 intravenous contrast. COMPARISON: 10/27/2024 FINDINGS: Chest: Thyroid is diminutive. There is no subclavicular, axillary lymphadenopathy. Hyperattenuating left hilar lymph nodes measuring up to 1.2 cm in short axis similar to prior study (series 2 image 79). The heart is normal in size, there is no pericardial effusion. The thoracic aorta and the pulmonary artery are normal in caliber. The esophagus is nondilated with a small hiatal hernia. Scattered bilateral pulmonary nodules consistent with metastatic disease are unchanged in size compared to prior examination. For example an unchanged left lower lobe nodule measures up to 2.2 cm (series 3 image 62), and an unchanged right upper lobe nodule measures up to 1.1 cm (series 3 image 51). No new suspicious pulmonary nodule. There is no pleural effusion or pneumothorax. Abdomen/Pelvis: Unchanged ill-defined enhancement in hepatic segment 8 favored to be vascular shunting (series 2, image 122). Mild intrahepatic biliary ductal dilation and extrahepatic common bile duct dilation with smooth tapering to the ampulla is favored to be secondary to reservoir effect in the setting of cholecystectomy. Portal vein, splenic vein, superior mesenteric vein are patent. No pancreatic lesion. Spleen is normal. There are postoperative findings of left nephrectomy and adrenalectomy without evidence of recurrence in the nephrectomy bed. The right kidney enhances homogeneously, there is no hydronephrosis. The right adrenal gland is normal. The bladder is normal. Fibroid uterus similar in appearance to prior study. There is no bowel obstruction, ascites, or pneumoperitoneum. Mild mural thickening of the transverse and descending colon which is underdistended. The abdominal aorta is normal in caliber. There is no abdominopelvic adenopathy. Redemonstrated changes of partial left 10th rib resection. No suspicious osseous lesion. 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 Abdominal pain and diarrhea. TECHNIQUE: Transaxial computed tomographic images of the chest, abdomen and pelvis were obtained with intravenous contrast according to the standard protocol after the administration of 68 mL Opti-Ray 350 intravenous contrast. COMPARISON: 10/27/2024 FINDINGS: Chest: Thyroid is diminutive. There is no subclavicular, axillary lymphadenopathy. Hyperattenuating left hilar lymph nodes measuring up to 1.2 cm in short axis similar to prior study (series 2 image 79). The heart is normal in size, there is no pericardial effusion. The thoracic aorta and the pulmonary artery are normal in caliber. The esophagus is nondilated with a small hiatal hernia. Scattered bilateral pulmonary nodules consistent with metastatic disease are unchanged in size compared to prior examination. For example an unchanged left lower lobe nodule measures up to 2.2 cm (series 3 image 62), and an unchanged right upper lobe nodule measures up to 1.1 cm (series 3 image 51). No new suspicious pulmonary nodule. There is no pleural effusion or pneumothorax. Abdomen/Pelvis: Unchanged ill-defined enhancement in hepatic segment 8 favored to be vascular shunting (series 2, image 122). Mild intrahepatic biliary ductal dilation and extrahepatic common bile duct dilation with smooth tapering to the ampulla is favored to be secondary to reservoir effect in the setting of cholecystectomy. Portal vein, splenic vein, superior mesenteric vein are patent. No pancreatic lesion. Spleen is normal. There are postoperative findings of left nephrectomy and adrenalectomy without evidence of recurrence in the nephrectomy bed. The right kidney enhances homogeneously, there is no hydronephrosis. The right adrenal gland is normal. The bladder is normal. Fibroid uterus similar in appearance to prior study. There is no bowel obstruction, ascites, or pneumoperitoneum. Mild mural thickening of the transverse and descending colon which is underdistended. The abdominal aorta is normal in caliber. There is no abdominopelvic adenopathy. Redemonstrated changes of partial left 10th rib resection. No suspicious osseous lesion. IMPRESSION: 1. Mild thickening of the transverse and descending colon, is favored to be related to underdistention, although mild colitis could appear similar. Recommend correlation with laboratory studies and clinical presentation. There is otherwise no acute intra-abdominal abnormality. 2. Stable metastatic pulmonary nodules and left hilar lymphadenopathy. No evidence of recurrent or metastatic disease in the abdomen or pelvis. Dictated by: Cheikh Junior MD The radiology attending physician has personally reviewed this study, and had reviewed and/or edited this written report and agrees with it. Electronically signed by: Mary Ellen Pepper MD us Claudine Pate NP IMG CT PROCEDURES Final R esult * (ABNORMAL) eGFR (01/14/2025 6:37 PM CDT) eGFR 59(L) >=60 mL/min/1. 73 m2 Comment: Interpretive Data [...] interpretive data was last reviewed 2021. Blood 01/14/2025 6:37 PM CDT 01/14/2025 7:01 PM CDT Claudine Pate ELECTRICAL RESEARCH ENGINEER LAB BLOOD ORDERABLES Autumn l Result Performing Organization Address City/[facility]/ZIP Co de Phone Number [facility] Department [place] [address] * Thyroid Function [place] (01/14/2025 6:37 PM CDT) Pathologist [facility] TSH 0.97 0.30 - 4.20 mcIUnit/mL Blood 01/14/2025 6:37 PM CDT 01/14/2025 7:01 PM CDT Carmen Pace ELECTRICAL RESEARCH ENGINEER LAB BLOOD ORDERABLES Fin al Result Performing Organization Address [facility] Co de Phone Number [facility] [place] [address] * Comprehensive metabolic panel (01/14/2025 6:37 PM CDT) Pathologist [facility] Sodium 139 135 - 145 mmol/L Potassium, pl 4.2 3.3 - 4.9 mmol/L [facility] Comment:Hemolyzed; Potassium value may be falsely elevated by as much as 0.3-0.5 mmol/L. Suggest redraw and reanalysis. Chloride 103 97 - 110 mmol/L [facility] CO2 25 22 - 32 mmol/L [facility] Anion gap 11 2 - 15 mmol/L [facility] BUN 14 6 - 25 mg/dL [facility] Creatinine 1.04 0.60 - 1.10 mg/dL [facility] Glucose 78 70 - 199 mg/dL [facility] Comment: Interpretive Data Fasting glucose >/= [...] interpretive data was last revised 2022. Calcium 9.2 8.5 - 10.3 mg/dL [facility] Bilirubin, total 1.1 0.1 - 1.2 mg/dL [facility] Protein, pl 7.2 6.5 - 8.5 g/dL [facility] Albumin 3.5 3.5 - 5.0 g/dL [facility] Alk phos 59 40 - 130 Units/L [facility] ALT 17 7 - 45 Units/L [facility] AST 34 10 - 45 Units/L [facility] Comment:Hemolyzed; result ma y be falsely elevated Blood 01/14/2025 6:37 PM CDT 01/14/2025 7:01 PM CDT Claudine Pate ELECTRICAL RESEARCH ENGINEER LAB BLOOD ORDERABLES Autumn lombardo Result [facility] Department [place] [address] * eGFR (01/14/2025 5:00 PM CDT) eGFR 63 >=60 mL/min/1. 73 m2 Comment: Interpretive Data [...] interpretive data was last reviewed 2021. Blood 01/14/2025 5:00 PM CDT 01/14/2025 5:10 PM CDT Claudine Pate ELECTRICAL RESEARCH ENGINEER LAB BLOOD ORDERABLES Autumn lombardo Result [facility] Department [place] [address] * Differential, auto (01/14/2025 5:00 PM CDT) Neutrophil abs 2.76 1.50 - 6.50 K/cumm Imm gran abs 0.02 0.00 - 0.10 K/cumm [facility] Lymphocyte abs 1.95 0.80 - 3.30 K/cumm [facility] Monocyte abs 0.46 0.20 - 0.80 K/cumm [facility] Eosinophil abs 0.06 0.00 - 0.50 K/cumm [facility] Basophil abs 0.02 0.00 - 0.10 K/cumm [facility] Neutrophil pct 52.4 % [facility] Comment: Interpretive Data Percent cell count reference ranges are not reported, since discordance with absolute values may lead to misinterpretation of CBC data. Current Interpretive Data was last revised on 2017. Imm gran pct 0.4 % [facility] Comment: Interpretive Data Percent cell count reference ranges are not reported, since discordance with absolute values may lead to misinterpretation of CBC data. Current Interpretive Data was last revised on 2017. Lymphocyte pct 37.0 % [facility] Comment: Interpretive Data Percent cell count reference ranges are not reported, since discordance with absolute values may lead to misinterpretation of CBC data. Current Interpretive Data was last revised on 2017. Monocyte pct 8.7 % [facility] Comment: Interpretive Data Percent cell count reference ranges are not reported, since discordance with absolute values may lead to misinterpretation of CBC data. Current Interpretive Data was last revised on 2017. Eosinophil pct 1.1 % [facility] Comment: Interpretive Data Percent cell count reference ranges are not reported, since discordance with absolute values may lead to misinterpretation of CBC data. Current Interpretive Data was last revised on 2017. Basophil pct 0.4 % [facility] Comment: Interpretive Data Percent cell count reference ranges are not reported, since discordance with absolute values may lead to misinterpretation of CBC data. Current Interpretive Data was last revised on 2017. Blood 01/14/2025 5:00 PM CDT 01/14/2025 5:10 PM CDT Claudine Pate NP LAB BLOOD ORDERABLES Autumn lombardo Result [facility] Department [place] [address] * (ABNORMAL) CBC with auto differential (01/14/2025 5:00 PM CDT) WBC 5.27 3.80 - 9.90 K/cumm Hgb 12.9 11.9 - 15.5 g/dL [facility] Hct 41.3 35.6 - 45.5 % [facility] Plt 122(L) 150 - 400 K/cumm [facility] Comment:No clot detected in sample. MPV Not Measured 9.1 - 12.3 fL [facility] RBC 5.40(H) 3.90 - 5.20 M/cumm [facility] MCV 76.5(L) 81.3 - 96.4 fL [facility] MCH 23.9(L) 27.1 - 33.3 pg [facility] MCHC 31.2(L) 32.3 - 35.7 g/dL [facility] RDW CV 21.4(H) 11.1 - 14.9 % [facility] RDW SD 57.3(H) 35.7 - 48.1 fL [facility] NRBC abs 0.00 0.00 - 0.01 K/cumm [facility] Blood 01/14/2025 5:00 PM CDT 01/14/2025 5:10 PM CDT us Claudine Pate NP LAB BLOOD ORDERABLES Autumn l Result Performing Organization Address City/[facility] Co de Phone Number [facility] [place] [address] * (ABNORMAL) Phosphorus (01/14/2025 5:00 PM CDT) [facility] Phosphorus, pl 2.2(L) 2.3 - 4.5 mg/dL Comment:Hemolyzed; result ma y be falsely elevated Blood Venous blood specimen / Unknown 01/14/2025 5:00 PM CDT 01/14/2025 5:10 PM CDT Claudine Pate NP LAB BLOOD ORDERABLES Autumn l Result Performing Organization Address [facility] de Phone Number [facility] [place] [address] * Magnesium (01/14/2025 5:00 PM CDT) [facility] Magnesium 2.1 1.4 - 2.5 mg/dL Blood Venous blood specimen / Unknown 01/14/2025 5:00 PM CDT 01/14/2025 5:10 PM CDT Claudine Pate NP LAB BLOOD ORDERABLES Autumn l Result Performing Organization Address City/[facility] Co de Phone Number [facility] [place] [address] * (ABNORMAL) Comprehensive metabolic panel (01/14/2025 5:00 PM CDT) [facility] Sodium 135 135 - 145 mmol/L Potassium, pl See Comment 3.3 - 4.9 mmol/L [facility] Comment:Credited; Hemolyzed Specimen Chloride 102 97 - 110 mmol/L [facility] CO2 23 22 - 32 mmol/L [facility] Anion gap 10 2 - 15 mmol/L [facility] BUN 14 6 - 25 mg/dL [facility] Creatinine 0.99 0.60 - 1.10 mg/dL [facility] Glucose 80 70 - 199 mg/dL [facility] Comment: Interpretive Data Fasting glucose >/= [...] interpretive data was last revised 2022. Calcium 9.1 8.5 - 10.3 mg/dL [facility] Bilirubin, total 1.0 0.1 - 1.2 mg/dL [facility] Protein, pl 7.4 6.5 - 8.5 g/dL [facility] Albumin 3.4(L) 3.5 - 5.0 g/dL [facility] Alk phos 58 40 - 130 Units/L [facility] Comment:Hemolyzed; result ma y be falsely decreased ALT See Comment 7 - 45 Units/L [facility] Comment:Credited; Hemolyzed Specimen AST See Comment 10 - 45 Units/L [facility] Comment:Credited; Hemolyzed Specimen Blood 01/14/2025 5:00 PM CDT 01/14/2025 5:10 PM CDT us Claudine Pate NP LAB BLOOD ORDERABLES Autumn lombardo Result [facility] Department [place] [address] * DC ARTHROCENTESIS ASPIR&/INJ MAJOR JT/BURSA W/O US (12/30/2024 9:20 AM CDT) Narrative Ezekiel Holbrook MD - 12/30/2024 9:20 AM CDT Ezekiel Holbrook MD 12/30/2024 12:40 PM Large Joint Injection: R knee Performed by: Ezekiel Holbrook MD Authorized by: Ezekiel Holbrook MD Large Joint Injection/Aspiration: Consent Given by: Patient Site marked: the procedure site was marked Timeout: prior to procedure the correct patient, procedure, and site was verified Verbal consent obtained: Yes Written consent obtained: No Supporting Documentation: Indications: Pain Procedure Details: Location: Knee Site: R knee Prep: patient was prepped and draped in usual sterile fashion Prep: patient was prepped using a clean technique Needle Size: 21 G Approach: Anterolateral Ultrasound guided: No Medications: 80 mg methylPREDNISolone acetate 40 mg/mL; 4 mL lidocaine 10 mg/mL (1 %); 4 mL BUPivacaine HCl 0.5 % (5 mg/mL) Aspirate amount (mL): 15 Aspirate: Serous Patient tolerance: Patient tolerated the procedure well with no immediate complications The risks and benefits of the injection were discussed with the patient, including but not limited to the risks of injection site reaction, pain, swelling, incomplete relief of symptoms and the potential risk for infection. The patient elected to proceed with the injection after all questions were answered. Ezekiel Holbrook MD IN CLINIC/BEDSIDE [facility] Final Result * Protein / creatinine ratio, urine, random (12/08/2024 10:10 AM CDT) Protein, ur, quant 16.2 mg/dL Comment: Interpretive Data No reference range established. Current interpretive data was last revised 2018. Creatinine Ur 145.7 mg/dL [facility] Comment: Interpretive Data No reference range established. Current interpretive data was last revised 2018. Protein/creatinin e ratio 111.2 0.0 - 180.0 mg/g CR [facility] Urine 12/08/2024 10:1 0 AM CDT 12/08/2024 10:23 AM CDT Lupis Friend NP LAB URINE ORDERABLES Final Result [facility] [place] [address] * (ABNORMAL) eGFR (12/08/2024 10:00 AM CDT) [...] CDT 12/08/2024 10:10 AM CDT Lupis Friend ELECTRICAL RESEARCH ENGINEER LAB BLOOD ORDERABLES Final Result [facility] One [facility] [place] [address] * Differential, auto (12/08/2024 10:00 AM CDT) Pathologist [facility] Neutrophil abs 3.73 1.50 - 6.50 K/cumm Comment:Testing performed by : [facility], [facility] [place] [address] Lymphocyte abs 2.00 0.80 - 3.30 K/cumm [facility] Comment:Testing performed by : [facility], [facility] [place] [address] Monocyte abs 0.55 0.20 - 0.80 K/cumm [facility] Comment:Testing performed by : [facility], [address] [place] [phone] Eosinophil abs 0.08 0.00 - 0.50 K/cumm [facility] Comment:Testing performed by : [facility], [address] [place] [phone] Basophil abs 0.06 0.00 - 0.10 K/cumm [facility] Comment:Testing performed by : [facility], [address] [place] [phone] Neutrophil pct 58.1 % [facility] Comment: Interpretive Data Percent cell count reference ranges are not reported, since discordance with absolute values may lead to misinterpretation of CBC data. Current Interpretive Data was last revised on 2017. Testing performed by: [facility], [address] [place] [phone] Lymphocyte pct 31.2 % [facility] Comment: Interpretive Data Percent cell count reference ranges are not reported, since discordance with absolute values may lead to misinterpretation of CBC data. Current Interpretive Data was last revised on 2017. Testing performed by: [facility], [address] [place] [phone] Monocyte pct 8.5 % [facility] Comment: Interpretive Data Percent cell count reference ranges are not reported, since discordance with absolute values may lead to misinterpretation of CBC data. Current Interpretive Data was last revised on 2017. Testing performed by: [facility], [address] [place] [phone] Eosinophil pct 1.2 % [facility] Comment: Interpretive Data Percent cell count reference ranges are not reported, since discordance with absolute values may lead to misinterpretation of CBC data. Current Interpretive Data was last revised on 2017. Testing performed by: [facility], [address] [place] [phone] Basophil pct 1.0 % [facility] Comment: Interpretive Data Percent cell count reference ranges are not reported, since discordance with absolute values may lead to misinterpretation of CBC data. Current Interpretive Data was last revised on 2017. Testing performed by: [facility], [address] [place] [phone] Blood 12/08/2024 10:0 0 AM CDT 12/08/2024 10:[address] [facility] ELECTRICAL RESEARCH ENGINEER LAB BLOOD ORDERABLES Final Result Performing Organization Address [facility] Co de Phone Number [facility] [place] [address] * (ABNORMAL) Thyroid Function [place] (12/08/2024 10:00 AM CDT) TSH 0.27(L) 0.30 - 4.20 mcIUnit/mL Blood 12/08/2024 10:0 0 AM CDT 12/08/2024 10:[address] [facility] ELECTRICAL RESEARCH ENGINEER LAB BLOOD ORDERABLES Final Result Performing Organization Address [facility] de Phone Number [facility] [place] [address] * (ABNORMAL) CBC with auto differential (12/08/2024 10:00 AM CDT) Pathologist [facility] WBC 6.43 3.80 - 9.90 K/cumm Comment:Testing performed by : [facility], [address] [place] [phone] Hgb 12.7 11.9 - 15.5 g/dL [facility] Comment:Testing performed by : [facility], [address] [place] [address] Hct 39.4 35.6 - 45.5 % [facility] Comment:Testing performed by : [facility], [address] [place] [address] Plt 204 150 - 400 K/cumm [facility] Comment:Testing performed by : [facility], [address] [place] [address] MPV 8.9 6.8 - 10.4 fL [facility] Comment:Testing performed by : [facility], [address] [place], [place] [phone] RBC 5.41(H) 3.90 - 5.20 M/cumm [facility] Comment:Testing performed by : [facility], [address] [place], [place] [phone] MCV 72.8(L) 81.3 - 96.4 fL [facility] Comment:Testing performed by : [facility], [address] [place], [place] [phone] MCH 23.5(L) 27.1 - 33.3 pg [facility] Comment:Testing performed by : [facility], [address] [place], [place] [phone] MCHC 32.4 32.3 - 35.7 g/dL [facility] Comment:Testing performed by : [facility], [address] [place], [place] [phone] RDW CV 20.2(H) 11.1 - 14.9 % [facility] Comment:Testing performed by : [facility], [address] [place], [place] [phone] NRBC abs 0.00 0.00 - 0.01 K/cumm [facility] Comment:Testing performed by : [facility], [address] [place], [place] [phone] Blood 12/08/2024 10:0 0 AM CDT 12/08/2024 10:08 AM CDT us Lupis Friend ELECTRICAL RESEARCH ENGINEER LAB BLOOD ORDERABLES Final Result [facility] Department [place] [address] * Vitamin D 25 hydroxy (12/08/2024 10:00 AM CDT) Vitamin D 25-OH 44 30 - 80 ng/mL Blood 12/08/2024 10:0 0 AM CDT 12/08/2024 10:[address] [facility] LAB BLOOD ORDERABLES Final Result Performing Organization Address [facility] de Phone Number [facility] Department [place] [address] * (ABNORMAL) T4, free (12/08/2024 10:00 AM CDT) Free T4 1.79(H) 0.90 - 1.70 ng/dL Blood 12/08/2024 10:0 0 AM CDT 12/08/2024 10:10 AM CDT Narrative [facility] - 12/08/2024 11:11 AM CDT This test was reflexed from a TSH result. [facility] LAB BLOOD ORDERABLES Final Result Performing Organization Address [facility] de Phone Number [facility] Department [place] [address] * Lipid panel (12/08/2024 10:00 AM CDT) [...] revised on 2017. Triglycerides 104 <=149 mg/dL [facility] Comment: Interpretive Data Ages < or [...] revised on 2017. HDL 65 >=40 mg/dL [facility] Comment: Interpretive Data Ages < or [...] on 2017. LDL, calculated 70 <=129 mg/dL [facility] Comment: Interpretive Data Ages < or [...] revised on 2023. Non-HDL Cholesterol 89 mg/dL [facility] Comment: Interpretive Data Ages < or [...] last revised on 2017. Chol/HDL ratio 2 [facility] Blood 12/08/2024 10:0 0 AM CDT 12/08/2024 10:10 AM CDT Lupis Friend NP LAB BLOOD ORDERABLES Final Result [facility] [place] [address] * (ABNORMAL) Comprehensive metabolic panel (12/08/2024 10:00 AM CDT) Sodium 142 135 - 145 mmol/L Potassium, pl 4.1 3.3 - 4.9 mmol/L [facility] Chloride 105 97 - 110 mmol/L [facility] CO2 27 22 - 32 mmol/L [facility] Anion gap 10 2 - 15 mmol/L [facility] BUN 18 6 - 25 mg/dL [facility] Creatinine 1.16(H) 0.60 - 1.10 mg/dL [facility] Glucose 100 70 - 199 mg/dL [facility] Comment: Interpretive Data Fasting glucose >/= [...] 2022. Calcium 9.6 8.5 - 10.3 mg/dL [facility] Bilirubin, total 0.6 0.1 - 1.2 mg/dL [facility] Protein, pl 7.3 6.5 - 8.5 g/dL [facility] Albumin 4.0 3.5 - 5.0 g/dL [facility] Alk phos 72 40 - 130 Units/L [facility] ALT 15 7 - 45 Units/L [facility] AST 28 10 - 45 Units/L [facility] Blood 12/08/2024 10:0 0 AM CDT 12/08/2024 10:10 AM CDT us Lupis Vasile Friend ELECTRICAL RESEARCH ENGINEER LAB BLOOD ORDERABLES Final Result [facility] [place] [address] * Screening Mammogram Bilateral W Juan (09/23/2024 1:19 PM CDT) Anatomical Region Laterality Modality Breast Bilateral Mammography Narrative 09/24/2024 8:54 AM CDT Mammogram Technique: Bilateral Digital Breast Tomosynthesis, Bilateral C-view 2D Screening mammogram. Views obtained: bilateral craniocaudal and bilateral mediolateral oblique. Computer Aided Detection was performed. Mammogram Findings: The present examination has been compared to prior imaging studies performed at [facility] on 10/31/2019, and at [facility] on 09/19/2022 and 10/04/2023. There are [...] compared to prior imaging studies performed at [facility] on 10/31/2019, [facility] on 09/19/2022 and 10/04/2023. There are [...] and children were not included. (Diabetes Care 31:[id number], 2008). The eAG is not equivalent to a fasting glucose. Blood 09/16/2024 11:2 0 AM CDT 09/16/2024 5:34 PM CDT Akhil Russo MD LAB BLOOD ORDERABLES Final Result [facility] [address] Department [place] [address] * Dexa Axial Skeleton Bone Density 1 or 2 Site (07/26/2023 8:08 AM CDT) Anatomical Region Laterality Modality Body N/A Other 07/26/2023 7:14 PM CDT Narrative 07/26/2023 7:16 PM CDT EXAM DESCRIPTION: DEXA AXIAL SKELETON BONE DENSITY 1 OR MORE SITES REASON FOR STUDY: 63 y/o year old F with given history of: Postmenopausal Wrapper Dipper/Model: Camiant SL (S/N [id number]) CLINICAL INFORMATION: Current height: 64.5 inches Maximum [...] Solitario Paul M.D. MF: JOVAN Report ID: [id number] Reading Location: [id number] Procedure Note Solitario Paul MD - 07/26/2023 EXAM DESCRIPTION: DEXA AXIAL SKELETON BONE DENSITY 1 OR MORE SITES REASON FOR STUDY: 63 y/o year old F with given history of:Postmenopausal Wrapper Dipper/Model: Code Blue Discovery SL (S/N [id number]) CLINICAL INFORMATION: Current height: 64.5 inches Maximum [...] Solitario Paul M.D. MF: JOVAN Report ID: [id number] Reading Location: [place] [address] Akhil Russo MD IMG DXA PROCEDURES Final Re sult * High Risk HPV DNA Detection with Genotyping (Molecular component) (04/11/2023 1:41 PM ANIMAL RIDES MANAGER) HPV HR 16 Not Detected Not Detected [facility] Comment:Testing performed by : [facility], [address] [place]., [address] HPV HR 18 Not Detected Not Detected [facility] Comment:Testing performed by : [facility], [address] [place]., [address] HPV HR Non 16/18 Not Detected Not Detected [facility] Comment: Interpretive Data Nucleic acid amplification for [...] this test have been verified by the [facility] Molecular Infectious Disease laboratory. Correlate with separately reported cytology results, as applicable. Interpretive data last revised 22 Testing performed by: [facility], [address] [place]., [address] Endocervical 04/11/2023 1:41 PM ANIMAL RIDES MANAGER 04/12/2023 3:01 PM ANIMAL RIDES MANAGER Akhil Russo MD LAB BODY FLUIDS AND STOOLS ORDERABLES Final Result Performing Organization Address City/State/ZIP Co or Phone Number [facility] [address] Department [place] [address] [phone] * CT Colonography Diagnostic W Contrast (07/22/2021 [...] it. Electronically signed by: Stephanie Barajas M.D. Lroene Prince MD IMG CT PROCEDURES Autumn l Result * Hepatitis C antibody (01/03/2021 12:02 PM CDT) Hep C Ab Nonreactive Nonreactive [facility] Comment:Antibodies to HCV no t detected. Does NOT exclude the possibility of recent exposure to HCV. Blood 01/03/2021 12:0 2 PM CDT 01/03/2021 12:16 PM CDT Carmen Fish NP LAB MICROBIOLOGY - GENER AL ORDERABLES Edited Result - Final [facility] [place] [address] from Last 3 Months or Most Recently Relevant to Health Maintenance Additional Health Concerns Infection Onset Date Last Indicated C. difficile 01/15/2025 01/15/2025 Insurance MEDICARE RESEARCH [facility] MEDICARE ADVANTAGE [facility] MEDICARE ADVANTAGE [facility] MEDICARE ADVANTAGE [facility] MEDICARE ADVANTAGE [employer] MEDICARE ADVANTAGE Advance Directives For more information, please contact: [phone] Documents on File Type Date Recorded Patient Inspector Toys Expl anation ADVANCE DIRECTIVE 01/22/2025 1:11 PM POWER OF AMUSEMENT PARK WORKER-MEDICAL ADVANCE DIRECTIVE 01/16/2025 10:17 AM Sha SHUKLA ER OF AMUSEMENT PARK WORKER-MEDICAL * Full Code (Latest Code Status on File) Date Activated Date Inactivated Comments 01/15/2025 11:58 AM 01/19/2025 9:54 PM * Full Code Date Activated Date Inactivated Comments 09/01/2023 8:54 PM 09/04/2023 4:11 PM * Full Code Date Activated Date Inactivated Comments 04/04/2022 6:21 PM 04/08/2022 5:40 PM * Full Code Date Activated Date Inactivated Comments 09/15/2021 9:14 AM 09/16/2021 9:20 PM * Full Code Date Activated Date Inactivated Comments 07/18/2021 10:32 PM 07/23/2021 7:37 PM Healthcare Agents on File Name Relationship Healthcare Agent Relationshi p Communication Sha Arreguin Health Care Agent Care Teams Thermal Cutting Machine Operator Relationship Specialty Start Date End Date Akhil Russo MD [address] [place] [address] PCP - General Family Medicine 11/29/21 Lorene Prince MD Medical Oncologist/Hematologis t Medical Oncology 01/31/21 Mili Mcleod NP [address] [place] [address] Nurse Practitioner Cardiovascular Disease 07/18/22 Guillermina Stokes MD [address] [place] [address] Referring Physician Endocrinology Diabetes & Metabolism 08/20/23 Dagoberto Dietrich MD [address] [place] [address] Referring Physician Nephrology 02/22/25
[2025-03-08] VITALS (10 sets, daily range): BP systolic 137–164; BP diastolic 86–104; PULSE 74–85; RESP 14–21; TEMP 36.7–37.1; O2SAT 99–100
--- OUTSIDE RECORDS SUMMARY | 2025-03-08 01:03 | XMS_ITS | Encounter Summary ---
Author Organization [facility] Healthcare Address [address] [place] [address] Care Team Providers Care Detacker Name Role Phone Lorene Prince MD Unavailable [phone] Vinod Bird MD Unavailable Akhil Russo MD Primary Care Provider [phone] Mili Mcleod NP Unavailable Guillermina Stokes MD Unavailable [phone] Lucy Lizarraga LPN Unavailable [phone] Dagoberto Dietrich MD Unavailable [phone] Encounter Details Date Type Department Care Team (Late st Contact Info) Description 12/01/2021 Telephone [facility] Primary Care Medicine Clinic [address] [facility] [address] [place] [address] Akhil Russo MD [facility] [address] [place] [address] Social History Tobacco Use Types [...] on file Legal Sex 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 difficile suspected 07/05/2023 07/05/2023 10:37 PM FINGER LIFT OPERATOR COVID: Suspected 08/22/2023 08/22/2023 08/22/2023 5:03 [...] documented as of this encounter Care Teams Detacker Relationship Specialty Start Date End Date Akhil Russo MD [address] [place] [address] PCP - General Family Medicine 11/29/21 Lorene Prince MD Medical Oncologist/Hematologis t Medical Oncology 01/31/21 Vinod Bird MD Consulting Physician Cardiovascular Disease 03/23/21 Mili Mcleod NP [address] [place] [address] Nurse Practitioner Cardiovascular Disease 07/18/22 Guillremina Stokes MD [address] [facility] [address] [place] [address] Referring Physician Endocrinology Diabetes & Metabolism 08/20/23 Lucy Lizarraga, PUBLIC RELATIONS PLAYER [address] [place] [address] [address] [place] [address] Polisher Hand 01/20/25 01/20/25 Dagoberto Dietrich MD [address] [facility] [address] [place] [address] Referring Physician Nephrology 02/22/25 documented as of this encounter
--- OUTSIDE RECORDS SUMMARY | 2025-03-08 01:03 | XMS_ITS ---
Author Organization [facility] Address [address] [place] [address] Care Team Providers Care Gas Plant Specialist Name Role Phone Lorene Prince MD Unavailable [phone] Akhil Russo MD Primary Care Provider [phone] Mili Mcleod NP Unavailable Guillermina Stokes MD Unavailable [phone] Dagoberto Dietrich MD Unavailable [phone] Active Problems Problem Noted Date Diagnosed Date [...] been provided to and reviewed with the patient/caregiver assisted living prior to discharge. C. difficile colitis 01/15/2025 [...] resolve. Assessment & Plan (04/05/2022 12:32 AM BREAKER LAYER): - Pt c/o dehydration and lightheadedness on exam - CTH was unremarkable for any acute intracranial abnormalities. No orthostatis noted on exam - c/w LR @ 75 ml/hr Bacteriuria 04/05/2022 Assessment & Plan (04/05/2022 12:39 AM BREAKER LAYER): - UA was + for LE and trace Bacteria, given immunocompromised status, will start on Cefepime IV 2g q12h pending cultures - Taper coverage based on c&s Headache 04/05/2022 Assessment & Plan (04/05/2022 12:40 AM BREAKER LAYER): - Pt c/o intermittent headaches and lightheadedness on exam. Given hx of mets CTH was obtained which was unremarkable for any acute intracranial abnormalities. Seasonal allergies 04/05/2022 Assessment & Plan (04/05/2022 12:40 AM BREAKER LAYER): - c/w Flonase nasal spray MARAVILLA (dyspnea on exertion) 04/05/2022 Assessment & Plan (04/05/2022 12:48 AM BREAKER LAYER): - Pt c/o dyspnea on exertion , can likely be related to metastatic disease progression - EKG was unremarkable on admission while Trop and BNP were also WNL - TTE donw previously in 12/2020 was remarkable for LVEf of 54% with limited study - Plan to repeat TTE Diarrhea in adult patient 04/04/2022 Assessment & Plan (04/05/2022 12:37 AM BREAKER LAYER): - Pt presented with worsening NB , [...] 11/30/2021 Assessment & Plan (03/19/2024 10:38 AM BREAKER LAYER): A(n) yearly Medicare Annual Wellness Visit has [...] OK Assessment & Plan (07/08/2022 12:17 PM BREAKER LAYER): TSH 0.17 uIU/ml, normal T4 Thyroid dosing has been adjusted, awaiting repeat Assessment & Plan (04/05/2022 12:34 AM BREAKER LAYER): - c/w Synthroid 100 mcg po qam [...] zoloft Assessment & Plan (04/05/2022 12:37 AM BREAKER LAYER): - c/w Sertraline 25 mg po every [...] meningitis -Total spine MRI was ordered in [facility] and completed --> Posterior T12 [...] meningitis -Total spine MRI was ordered in [facility] and completed, read pending -Will [...] 02/18/2021 Assessment & Plan (04/05/2022 12:34 AM BREAKER LAYER): - Pt c/o worsening SOB which can [...] dehydration Assessment & Plan (07/08/2022 12:18 PM BREAKER LAYER): Renal function decreased, GFR at 42 Creatinine 1.39 Advised on hydration Assessment & Plan (04/05/2022 12:34 AM BREAKER LAYER): - c/w Toprol XL 50 mg po [...] recurrence. Assessment & Plan (04/05/2022 12:31 AM BREAKER LAYER): - Pt was diagnosed with left renal [...] Treatment Medications Discontinue Reason Plan Provider Cycles [id number] [facility] [id number] Part 1 Arm A Nivolumab + Bempegaldesleukin + Axitinib 01/18/20 21 07/24/2022 [facility] (2018-02-074/ [id number]) Nivolumab/BMS -[id number] IVPB in 50 mLINV-[facility] (/ [id number]) NKTR-214 (BEMPEGALDESL EUKIN) IVPB in 50 mL () [facility] axitinib (/ [id number]) Progressive Disease Lorene Prince MD 24 of [...] 07/18/2023 Assessment & Plan (04/05/2022 12:39 AM BREAKER LAYER): - Pt has documented hx of PE, has been off AC for over 3 months Total perforation of left tympanic membrane 09/12/2021 02/10/2022 Overview (09/12/2021): Added automatically from request for surgery [id number] Left renal mass 01/03/2019 01/24/2019 Overview (01/03/2019): Added automatically from request for surgery [id number]
--- OUTSIDE RECORDS SUMMARY | 2025-03-08 01:03 | XMS_ITS | Encounter Summary ---
Author Organization [facility] Healthcare Address [address] [place] [address] Care Team Providers Care Neurology Manager Name Role Phone Fide Contreras MD Primary Care Provider Lorene Prince MD Unavailable [phone] Vinod Bird MD Unavailable Sandra Prieto Primary Care Provider [phone] Akhil Russo MD Primary Care Provider [phone] Mili Mcleod NP Unavailable Guillermina Stokes MD Unavailable [phone] Lucy Lizarraga LPN Unavailable [phone] Dagoberto Dietrich MD Unavailable [phone] Encounter Details Date Type Department Care Team (Late st Contact Info) Description 01/04/2021 Telephone [facility] Radiology [address] [place] [address] Lorene Prince MD [address] [place], [place] [id number] Social History Tobacco Use Types Packs/Day Years [...] file Legal 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 Gender Identity Female 12/08/2020 1:45 PM CDT [...] difficile suspected 07/05/2023 07/05/2023 10:37 PM SENIOR CLIMATE ADVISOR COVID: Suspected 08/22/2023 08/22/2023 08/22/2023 5:03 PM [...] documented as of this encounter Care Teams Neurology Manager Relationship Specialty Start Date End Date Fide Contreras MD [address] [place] [address] [address] [facility] [address] [place] [address] PCP - General Family Medicine 01/01/19 11/15/21 Sandra Prieto PA [address] [facility] [address] [place] [address] PCP - General Internal Medicine 11/16/21 11/28/21 Akhil Russo MD [address] [place] [address] PCP - General Family Medicine 11/29/21 Lorene Prince MD [address] [place] [address] [address] [facility] [address] [place] [address] Medical Oncologist/Hematologis t Medical Oncology 01/31/21 Vinod Bird MD [address] [place] [address] [address] [facility] [address] [place] [address] Consulting Physician Cardiovascular Disease 03/23/21 Mili Mcleod NP [address] [place] [address] Nurse Practitioner Cardiovascular Disease 07/18/22 [place] [address] [place] [address] [address] [place] [address] Referring Physician Endocrinology Diabetes & Metabolism 08/20/23 Lucy Lizarraga, SLIP FILLER [address] [place] [address] [address] [place] [address] Jewelry Model Maker 01/20/25 01/20/25 Dagoberto Dietrich MD [address] [place] [address] Referring Physician Nephrology 02/22/25 documented as of this encounter
--- OUTSIDE RECORDS SUMMARY | 2025-03-08 01:04 | XMS_ITS | Clinical Summary ---
Author Organization [facility] Address [address] [place] [address] Care Team Providers Care Counter Roller Name Role Phone Lorene Prince MD Unavailable [phone] Akihl Russo MD Primary Care Provider Mili Mcleod NP Unavailable Guillermina tSokes MD Unavailable [phone] Dagoberto Dietrich MD Unavailable [phone] Allergies Active Allergy Reactions Criticality Noted Date Comments Boundary And Derivatives Diarrhea Low 01/09/2019 Codeine Hives [...] disease, without long-term current use of insulin ([facility]) For home blood glucose monitoring, once daily 100 each 02/03/20 25 2025 Active lancets 33 gauge miscIndications:T ype 2 diabetes mellitus with stage 3a chronic kidney disease, without long-term current use of insulin ([facility]) For home blood glucose monitoring, 1ce daily [...] been provided to and reviewed with the patient/care coordination manager prior to discharge. C. difficile colitis 01/15/2025 [...] resolve. Assessment & Plan (04/05/2022 12:32 AM HEAVY EQUIPMENT RENTAL MANAGER): - Pt c/o dehydration and lightheadedness on exam - CTH was unremarkable for any acute intracranial abnormalities. No orthostatis noted on exam - c/w LR @ 75 ml/hr Bacteriuria 04/05/2022 Assessment & Plan (04/05/2022 12:39 AM HEAVY EQUIPMENT RENTAL MANAGER): - UA was + for LE and trace Bacteria, given immunocompromised status, will start on Cefepime IV 2g q12h pending cultures - Taper coverage based on c&s Headache 04/05/2022 Assessment & Plan (04/05/2022 12:40 AM HEAVY EQUIPMENT RENTAL MANAGER): - Pt c/o intermittent headaches and lightheadedness on exam. Given hx of mets CTH was obtained which was unremarkable for any acute intracranial abnormalities. Seasonal allergies 04/05/2022 Assessment & Plan (04/05/2022 12:40 AM HEAVY EQUIPMENT RENTAL MANAGER): - c/w Flonase nasal spray MARAVILLA (dyspnea on exertion) 04/05/2022 Assessment & Plan (04/05/2022 12:48 AM HEAVY EQUIPMENT RENTAL MANAGER): - Pt c/o dyspnea on exertion , can likely be related to metastatic disease progression - EKG was unremarkable on admission while Trop and BNP were also WNL - TTE donw previously in 12/2020 was remarkable for LVEf of 54% with limited study - Plan to repeat TTE Diarrhea in adult patient 04/04/2022 Assessment & Plan (04/05/2022 12:37 AM HEAVY EQUIPMENT RENTAL MANAGER): - Pt presented with worsening NB [...] 11/30/2021 Assessment & Plan (03/19/2024 10:38 AM HEAVY EQUIPMENT RENTAL MANAGER): A(n) yearly Medicare Annual Wellness Visit [...] [place] Assessment & Plan (07/08/2022 12:17 PM HEAVY EQUIPMENT RENTAL MANAGER): TSH 0.17 uIU/ml, normal T4 Thyroid dosing has been adjusted, awaiting repeat Assessment & Plan (04/05/2022 12:34 AM HEAVY EQUIPMENT RENTAL MANAGER): - c/w Synthroid 100 mcg po [...] zoloft Assessment & Plan (04/05/2022 12:37 AM HEAVY EQUIPMENT RENTAL MANAGER): - c/w Sertraline 25 mg po [...] meningitis -Total spine MRI was ordered in [facility] and completed --> Posterior T12 [...] meningitis -Total spine MRI was ordered in [facility] and completed, read pending -Will [...] 02/18/2021 Assessment & Plan (04/05/2022 12:34 AM HEAVY EQUIPMENT RENTAL MANAGER): - Pt c/o worsening SOB which [...] dehydration Assessment & Plan (07/08/2022 12:18 PM HEAVY EQUIPMENT RENTAL MANAGER): Renal function decreased, GFR at 42 Creatinine 1.39 Advised on hydration Assessment & Plan (04/05/2022 12:34 AM HEAVY EQUIPMENT RENTAL MANAGER): - c/w Toprol XL 50 mg [...] recurrence. Assessment & Plan (04/05/2022 12:31 AM HEAVY EQUIPMENT RENTAL MANAGER): - Pt was diagnosed with left [...] 07/18/2023 Assessment & Plan (04/05/2022 12:39 AM HEAVY EQUIPMENT RENTAL MANAGER): - Pt has documented hx of PE, has been off AC for over 3 months Total perforation of left tympanic membrane 09/12/2021 02/10/2022 Overview (09/12/2021): Added automatically from request for surgery [id number] Left renal mass 01/03/2019 01/24/2019 Overview (01/03/2019): Added automatically from request for surgery [id number] Encounters Date Type Department Care Team Description 02/27/2025 Orders Only [facility] [address] [place] [address] Lorene Prince MD 02/27/2025 Results Follow-Up [facility] On[facility] [address] [facility] [address] [place] [address] Lupis Friend NP Lipid panel, Comprehensive metabolic panel, CBC with auto differential, Additional followed-up results: 10 02/23/2025 2:15 PM CDT Office Visit [facility] [address] [place] [address] Lupis Friend, [place] Malignant neoplasm of left kidney (CMS/HCC) (HCC) (Primary Dx); Secondary malignant neoplasm of left lung (HCC); Malignant neoplasm of left kidney (HCC) 02/23/2025 1:15 PM CDT Lab [facility] - Lab Collection [address] [facility] Floor [address] [place] [address] Malignant neoplasm of left kidney (CMS/HCC) (HCC); Secondary malignant neoplasm of left lung (HCC) 02/19/2025 11:40 AM CDT Telemedicine [facility] Endocrinology Metabolism and Lipid [address] [facility] 13th [place] [address] Guillermina Stokes MD Type 2 diabetes mellitus with stage 3 chronic kidney disease, with long-term current use of insulin, unspecified whether stage 3a or 3b CKD (HCC) (Primary Dx); Stage 3a chronic kidney disease (HCC); Mixed hyperlipidemia; Vitamin D deficiency 02/19/2025 Telephone [facility] Endocrinology Metabolism and Lipid [address] [facility] 13th [place] [address] [place] [address] Maureen Domínguez RN encourage to complete e check in for tele visit appt today 02/10/2025 10:40 AM CDT Office Visit [facility] Orthopaedic Surgery [address] [facility] 1st Floor [address] [place] [address] Knapik, Ezekiel Solitario, MD Right knee pain, unspecified chronicity (Primary Dx) 02/05/2025 Orders Only [facility] [address] [place] [phone] Lorene Prince MD Malignant neoplasm of left kidney (HCC) (Primary Dx) 01/23/2025 2:00 PM CDT Office Visit [facility] Primary Care at [address] [address] Candelaria Cisneros NP C. difficile colitis (Primary Dx); Hospital discharge follow-up; Iron deficiency anemia due to chronic blood loss; FARHANA (acute kidney injury); Type 2 diabetes mellitus with stage 3a chronic kidney disease, without long-term current use of insulin (HCC); MDD (major depressive disorder), recurrent episode, moderate (HCC); Mixed hyperlipidemia 01/23/2025 Telephone [facility] [address] [place] [phone] Lorene Prince MD 01/23/2025 Telephone [facility] [address] [place] [phone] Lorene Prince MD 01/21/2025 Telephone [facility] [address] [place] [phone] Lorene Prince MD 01/20/2025 DMITRI IP Outreach [facility] Accountable Care Organization [address] [place] [phone] Lucy Lizarraga LPN 01/15/2025 10:12 PM CDT - 01/19/2025 5:49 PM CDT Hospital Encounter [address] [address] Lorene Prince MD [place], Spoorthi, MD Nausea (Primary Dx); Dehydration; Nausea vomiting and diarrhea; Headache disorder; Hypothyroidism due to medication; Hypothyroidism (acquired); Anxiety; Chronic GERD; Malignant neoplasm of left kidney (CMS/HCC) (HCC); Clostridium difficile colitis Discharge Disposition: Discharge to home or self care 01/15/2025 Orders Only [facility] Floor [address] [place] [address] Lorene Prince MD 01/15/2025 Results Follow-Up [facility] [address] [facility] [address] [place] [address] Lupis Friend, [place] CBC with auto differential, Comprehensive metabolic panel, Magnesium, Additional followed-up results: 8 01/14/2025 6:40 PM CDT - 01/14/2025 11:59 PM CDT Hospital Encounter [facility] [address] [place] [phone] Discharge Disposition: Discharge to home or self care 01/14/2025 Telephone [facility] [address] [place] [address] [address] [place] [address] Lorene Prince MD 12/30/2024 9:20 AM CDT Office Visit [facility] Orthopaedic Surgery [address] [facility] 1st Floor [address] [place] [address] Ezekiel Holbrook MD Right knee pain, unspecified chronicity (Primary Dx) 12/26/2024 11:00 AM CDT Office Visit [facility] Primary Care at [address] [address] Akhil Russo MD Hospital discharge follow-up (Primary Dx); Gastroenteritis; FARHANA (acute kidney injury) 12/25/2024 Telephone [facility] [address] [place] [address] Floor [address] [place] [address] Lorene Prince MD 12/24/2024 Telephone [facility] [address] [place] [address] [address] [place] [address] Lorene Prince MD 12/23/2024 Telephone [facility] [address] [place] [address] [address] [place] [address] Lorene Prince MD 12/19/2024 Telephone [facility] [address] [place] [phone] Lorene Prince MD 12/18/2024 Orders Only [facility] [address] [place] [phone] Lorene Prince MD 12/18/2024 Telephone [facility] [address] [place] [phone] Lorene Prince MD 12/18/2024 Orders Only [facility] [address] [place] [phone] Lorene Prince MD 12/08/2024 11:15 AM CDT Office Visit [facility] [address] [place] [phone] Lorene Prince MD Malignant neoplasm of left kidney (CMS/HCC) (HCC) (Primary Dx); Secondary malignant neoplasm of left lung (HCC); Malignant neoplasm of left kidney (HCC) 12/08/2024 10:15 AM CDT Lab [facility] Lab [address] [place] [phone] Malignant neoplasm of left kidney (CMS/HCC) (HCC) 12/08/2024 10:00 AM CDT Lab [facility] - Lab Collection [address] [place] [phone] Malignant neoplasm of left kidney (CMS/HCC) (HCC) [...] Father's Brother 1 Heber Father's Brother 2 [place] Maternal Grandmother Louise Agarwal Mother Jasvir Diaz [...] answer 09/04/2023 How often do you attend [facility] or buddhist services? Patient unable to answer [...] often do you attend [facility] or buddhist services? 1 to 4 times per year [...] any time in the past 12 [facility], were you homeless or living in a residential (including now)? No 01/16/2025 [facility] Utilities Answer Date Recorded In the [...] on file Legal Sex Female 8:31 AM HEAVY EQUIPMENT RENTAL MANAGER Gender Identity Female 12/08/2020 1:45 PM [...] 1960 Hepatitis B Screening 1976 Covid-19 Vaccine ( season) 2025 01/14/2024, 09/27/2021, 09/27/2021, Additional history [...] Additional history exists Lipid Panel 02/23/2026 02/23/2025, 080 08/2024, 10/27/2024, Additional history exists eGFR 02/23/2026 02/23/2025, [...] AUTO DIFFERENTIAL STAT 01/14/2025 5:00 PM CDT [place] ARTHROCENTESIS ASPIR&/INJ MAJOR JT/BURSA W/O US Routine [...] 07/26/2023 8:08 AM CDT Screening for osteoporosis [facility] (current) use of immunomodulator HIGH RISK HPV DNA DETECTION WITH GENOTYPING Routine 04/11/2023 1:41 PM HEAVY EQUIPMENT RENTAL MANAGER CT VIRTUAL COLONOSCOPY DIAGNOSTIC W CONTRAST IP Routine 07/22/2021 2:35 PM CDT HEPATITIS C ANTIBODY Routine 01/03/2021 12:02 PM CDT Malignant neoplasm of left kidney (HCC) from Last 3 Months or Most Recently Relevant to Health Maintenance Results * Protein / creatinine ratio, urine, random (02/23/2025 1:35 PM CDT) Protein, ur, quant 28.7 mg/dL Comment: Interpretive Data No reference range established. Current interpretive data was last revised 2018. Creatinine Ur 253.6 mg/dL [facility] Comment: Interpretive Data No reference range established. Current interpretive data was last revised 2018. Protein/creatinin e ratio 113.2 0.0 - 180.0 mg/g CR [facility] Urine 02/23/2025 1:35 PM CDT 02/23/2025 1:59 PM CDT us Lorene Prince MD LAB URINE ORDERABLES F inal Result [facility] [address] [facility] Department [place] [address] * (ABNORMAL) eGFR (02/23/2025 1:12 PM CDT) Pathologist [facility] eGFR 58(L) >=60 mL/min/1. 73 m2 Comment: [...] MD LAB BLOOD ORDERABLES F inal Result [facility] [address] [facility] Department [place] [address] * Differential, auto (02/23/2025 1:12 PM CDT) Neutrophil abs 3.13 1.50 - 6.50 K/cumm Comment:Testing performed by : [facility] Heme [facility], [address] [place] [address] Lymphocyte abs 1.71 0.80 - 3.30 K/cumm [facility] Comment:Testing performed by : [facility], [address] [place], [place] [phone] Monocyte abs 0.29 0.20 - 0.80 K/cumm [facility] Comment:Testing performed by : [facility], [address] [place], [place] [id number] Eosinophil abs 0.05 0.00 - 0.50 K/cumm [facility] Comment:Testing performed by : [facility], [address] [place] [phone] Basophil abs 0.06 0.00 - 0.10 K/cumm [facility] Comment:Testing performed by : [facility], [address] [place] [address] Neutrophil pct 59.8 % [facility] Comment: Interpretive Data Percent cell count reference ranges are not reported, since discordance with absolute values may lead to misinterpretation of CBC data. Current Interpretive Data was last revised on 2017. Testing performed by: [facility], [address] [place] [phone] Lymphocyte pct 32.6 % [facility] Comment: Interpretive Data Percent cell count reference ranges are not reported, since discordance with absolute values may lead to misinterpretation of CBC data. Current Interpretive Data was last revised on 2017. Testing performed by: [facility], [address] [place] [phone] Monocyte pct 5.6 % [facility] Comment: Interpretive Data Percent cell count reference ranges are not reported, since discordance with absolute values may lead to misinterpretation of CBC data. Current Interpretive Data was last revised on 2017. Testing performed by: [facility], [address] [place] [phone] Eosinophil pct 0.9 % [facility] Comment: Interpretive Data Percent cell count reference ranges are not reported, since discordance with absolute values may lead to misinterpretation of CBC data. Current Interpretive Data was last revised on 2017. Testing performed by: [facility], [address] [place] [phone] Basophil pct 1.2 % [facility] Comment: Interpretive Data Percent cell count reference ranges are not reported, since discordance with absolute values may lead to misinterpretation of CBC data. Current Interpretive Data was last revised on 2017. Testing performed by: [facility], [address] [place] [phone] Blood 02/23/2025 1:12 PM CDT 02/23/2025 1:18 PM CDT us Lorene Prince MD LAB BLOOD ORDERABLES F inal Result [facility] Department [place] [address] * Thyroid Function [place] (02/23/2025 1:12 PM CDT) TSH 0.56 0.30 - 4.20 mcIUnit/mL Blood 02/23/2025 1:12 PM CDT 02/23/2025 1:31 PM CDT Lorene Prince MD LAB BLOOD ORDERABLES F inal Result Performing Organization Address [facility] Co de Phone Number [facility] Department [place] [address] * (ABNORMAL) Iron profile w/ IBC (02/23/2025 1:12 PM CDT) Pathologist [facility] Iron 42 35 - 145 mcg/dL TIBC 239(L) 250 - 400 mcg/dL [facility] Transferrin saturation 18(L) 20 - 50 % [facility] Blood 02/23/2025 1:12 PM CDT 02/23/2025 1:31 PM CDT Lupis Friend NP LAB BLOOD ORDERABLES Final Result Performing Organization Address [facility] de Phone Number [facility] Department [place] [address] * (ABNORMAL) CBC with auto differential (02/23/2025 1:12 PM CDT) [facility] WBC 5.24 3.80 - 9.90 K/cumm Comment:Testing performed by : [facility]e [facility], [address] [place] [phone] Hgb 12.7 11.9 - 15.5 g/dL [facility] Comment:Testing performed by : [facility], [address] [place] [phone] Hct 40.6 35.6 - 45.5 % [facility] Comment:Testing performed by : [facility], [address] [place] [phone] Plt 238 150 - 400 K/cumm [facility] Comment:Testing performed by : [facility], [address] [place] [phone] MPV 8.5 6.8 - 10.4 fL [facility] Comment:Testing performed by : [facility], [address] [place], [place] [phone] RBC 5.38(H) 3.90 - 5.20 M/cumm [facility] Comment:Testing performed by : [facility], [address] [place], [place] [phone] MCV 75.5(L) 81.3 - 96.4 fL [facility] Comment:Testing performed by : [facility], [address] [place], [place] [phone] MCH 23.5(L) 27.1 - 33.3 pg [facility] Comment:Testing performed by : [facility], [address] [place], [place] [phone] MCHC 31.2(L) 32.3 - 35.7 g/dL [facility] Comment:Testing performed by : [facility], [address] [place], [place] [phone] RDW CV 20.9(H) 11.1 - 14.9 % [facility] Comment:Testing performed by : [facility], [address] [place], [place] [phone] NRBC abs 0.00 0.00 - 0.01 K/cumm [facility] Comment:Testing performed by : [facility], [address] [place], [place] [phone] Blood 02/23/2025 1:12 PM CDT 02/23/2025 1:18 PM CDT us Lorene Prince MD LAB BLOOD ORDERABLES F inal Result [facility] Department [place] [address] * Vitamin D 25 hydroxy (02/23/2025 1:12 PM CDT) Vitamin D 25-OH 42 30 - 80 ng/mL Blood 02/23/2025 1:12 PM CDT 02/23/2025 1:31 PM CDT Lorene Prince MD LAB BLOOD ORDERABLES F inal Result Performing Organization Address [facility] de Phone Number [facility] [place] [address] * Protime-INR (02/23/2025 1:12 PM CDT) Pathologist [facility] PT 11.7 10.2 - 13.5 sec INR 1.04 0.90 - 1.20 [facility] Comment: Interpretive data Oral anticoagulant therapeutic ranges: Venous thromboembolism prophylaxis or treatment: 2.0-3.0 CARDIOLOGY Standard range: 2.0-3.0 High-intensity range: 2.5-3.5 Refer to indication-specific guidelines for appropriate target ranges for prosthetic heart valve replacement. Current interpretive data was last revised on 2019. Blood 02/23/2025 1:12 PM CDT 02/23/2025 1:49 PM CDT Lupis Friend NP LAB BLOOD ORDERABLES Final Result Performing Organization Address [facility] de Phone Number [facility] [place] [address] * Folate (02/23/2025 1:12 PM CDT) [facility] Folic acid >20.0 >=5.0 ng/mL Blood 02/23/2025 1:12 PM CDT 02/23/2025 2:06 PM CDT Lupis Friend NP LAB BLOOD ORDERABLES Final Result Performing Organization Address [facility] de Phone Number [facility] [place] [address] * (ABNORMAL) Ferritin (02/23/2025 1:12 PM CDT) Ferritin 158(H) 13 - 150 ng/mL Blood 02/23/2025 1:12 PM CDT 02/23/2025 1:[address] [facility] LAB BLOOD ORDERABLES Final Result Performing Organization Address City/[facility] de Phone Number [facility] Department [place] [address] * (ABNORMAL) Vitamin B12 (02/23/2025 1:12 PM CDT) Vitamin B12 >2,000(H) 230 - 1,250 pg/mL Blood 02/23/2025 1:12 PM CDT 02/23/2025 2:[address] [facility] LAB BLOOD ORDERABLES Final Result Performing Organization Address [facility] de Phone Number [facility] Department [place] [address] * Lipid panel (02/23/2025 1:12 PM CDT) Pathologist [facility] Cholesterol 150 30 - 199 mg/dL Comment: [...] revised on 2017. Triglycerides 98 <=149 mg/dL [facility] Comment: Interpretive Data Ages < or = [...] revised on 2017. HDL 59 >=40 mg/dL [facility] Comment: Interpretive Data Ages < [...] on 2017. LDL, calculated 73 <=129 mg/dL [facility] Comment: Interpretive Data Ages < or = [...] revised on 2023. Non-HDL Cholesterol 91 mg/dL [facility] Comment: Interpretive Data Ages < or [...] last revised on 2017. Chol/HDL ratio 3 [facility] Blood 02/23/2025 1:12 PM CDT 02/23/2025 1:31 PM CDT us Lorene Prince MD LAB BLOOD ORDERABLES F inal Result [facility] Department [place] [address] * Comprehensive metabolic panel (02/23/2025 1:12 PM CDT) Sodium 140 135 - 145 mmol/L Potassium, pl 4.0 3.3 - 4.9 mmol/L [facility] Chloride 102 97 - 110 mmol/L [facility] CO2 27 22 - 32 mmol/L [facility] Anion gap 11 2 - 15 mmol/L [facility] BUN 13 6 - 25 mg/dL [facility] Creatinine 1.06 0.60 - 1.10 mg/dL [facility] Glucose 149 70 - 199 mg/dL [facility] Comment: Interpretive Data Fasting glucose >/= 126 [...] 2022. Calcium 9.7 8.5 - 10.3 mg/dL [facility] Bilirubin, total 0.7 0.1 - 1.2 mg/dL [facility] Protein, pl 7.7 6.5 - 8.5 g/dL [facility] Albumin 3.9 3.5 - 5.0 g/dL [facility] Alk phos 80 40 - 130 Units/L [facility] ALT 14 7 - 45 Units/L [facility] AST 25 10 - 45 Units/L [facility] Blood 02/23/2025 1:12 PM CDT 02/23/2025 1:31 PM CDT Lorene Prince MD LAB BLOOD ORDERABLES F inal Result Performing Organization Address City/[facility]/ZIP Co de Phone Number [facility] [place] [address] * POCT glucose (01/19/2025 2:25 PM CDT) Glucose, POC 70 70 - 199 mg/dL Blood 01/19/2025 2:25 PM CDT 01/19/2025 2:25 PM CDT Bozena Bonilla MD LAB POCT ORDERABLES - DEVICE Final Result Performing Organization Address [facility] Co de Phone Number [facility] [place] [address] * POCT glucose (01/19/2025 9:16 AM CDT) Glucose, POC 83 70 - 199 mg/dL Blood 01/19/2025 9:16 AM CDT 01/19/2025 9:16 AM CDT Bozena Bonilla MD LAB POCT ORDERABLES - DEVICE Final Result Performing Organization Address City/[facility] Co de Phone Number [facility] [place] [address] * (ABNORMAL) eGFR (01/18/2025 9:32 PM CDT) [facility] eGFR 54(L) >=60 mL/min/1. 73 m2 Comment: [...] MD LAB BLOOD ORDERABLES Final R esult [facility] [place] [address] * Differential, auto (01/18/2025 9:32 PM CDT) [facility] Neutrophil abs 3.16 1.50 - 6.50 K/cumm Imm gran abs 0.04 0.00 - 0.10 K/cumm [facility] Lymphocyte abs 2.89 0.80 - 3.30 K/cumm [facility] Monocyte abs 0.51 0.20 - 0.80 K/cumm [facility] Eosinophil abs 0.07 0.00 - 0.50 K/cumm [facility] Basophil abs 0.01 0.00 - 0.10 K/cumm [facility] Neutrophil pct 47.4 % [facility] Comment: Differential consistent with previous result. Interpretive Data Percent cell count reference ranges are not reported, since discordance with absolute values may lead to misinterpretation of CBC data. Current Interpretive Data was last revised on 2017. Imm gran pct 0.6 % [facility] Comment: Interpretive Data Percent cell count reference ranges are not reported, since discordance with absolute values may lead to misinterpretation of CBC data. Current Interpretive Data was last revised on 2017. Lymphocyte pct 43.3 % [facility] Comment: Interpretive Data Percent cell count reference ranges are not reported, since discordance with absolute values may lead to misinterpretation of CBC data. Current Interpretive Data was last revised on 2017. Monocyte pct 7.6 % [facility] Comment: Interpretive Data Percent cell count reference ranges are not reported, since discordance with absolute values may lead to misinterpretation of CBC data. Current Interpretive Data was last revised on 2017. Eosinophil pct 1.0 % [facility] Comment: Interpretive Data Percent cell count reference ranges are not reported, since discordance with absolute values may lead to misinterpretation of CBC data. Current Interpretive Data was last revised on 2017. Basophil pct 0.1 % [facility] Comment: Interpretive Data Percent cell count reference ranges are not reported, since discordance with absolute values may lead to misinterpretation of CBC data. Current Interpretive Data was last revised on 2017. Blood 01/18/2025 9:32 PM CDT 01/18/2025 9:44 PM CDT us Bozena Bonilla MD LAB BLOOD ORDERABLES Final R esult [facility] Department of Laboratories [place], [place] [id number] * (ABNORMAL) CBC with auto differential (01/18/2025 9:32 PM CDT) WBC 6.68 3.80 - 9.90 K/cumm Hgb 10.5(L) 11.9 - 15.5 g/dL [facility] Hct 32.4(L) 35.6 - 45.5 % [facility] Plt 151 150 - 400 K/cumm [facility] MPV 10.8 9.1 - 12.3 fL [facility] RBC 4.31 3.90 - 5.20 M/cumm [facility] MCV 75.2(L) 81.3 - 96.4 fL [facility] MCH 24.4(L) 27.1 - 33.3 pg [facility] MCHC 32.4 32.3 - 35.7 g/dL [facility] RDW CV 21.2(H) 11.1 - 14.9 % [facility] RDW SD 56.6(H) 35.7 - 48.1 fL [facility] NRBC abs 0.00 0.00 - 0.01 K/cumm [facility] Blood 01/18/2025 9:32 PM CDT 01/18/2025 9:44 PM CDT Bozena Bonilla MD LAB BLOOD ORDERABLES Final R esult Performing Organization Address City/[facility] Co de Phone Number [facility] Department [place] [address] * aPTT (01/18/2025 9:32 PM CDT) [facility] aPTT 29 26 - 38 sec Comment: Interpretive Data Heparin therapeutic range: 66.0 - 100.0 seconds. Range based on correlation with therapeutic heparin activity range of 0.3 - 0.7 Units/mL. Current interpretive data was last revised on 2023. Blood 01/18/2025 9:32 PM CDT 01/18/2025 9:50 PM CDT Lilian Hunter MD LAB BLOOD ORDERABLES Final Resul t Performing Organization Address City/[facility] Co de Phone Number [facility] Department [place] [address] * Protime-INR (01/18/2025 9:32 PM CDT) [facility] PT 11.3 10.2 - 13.5 sec INR 1.00 0.90 - 1.20 [facility] Comment: Interpretive data Oral anticoagulant therapeutic ranges: Venous thromboembolism prophylaxis or treatment: 2.0-3.0 CARDIOLOGY Standard range: 2.0-3.0 High-intensity range: 2.5-3.5 Refer to indication-specific guidelines for appropriate target ranges for prosthetic heart valve replacement. Current interpretive data was last revised on 2019. Blood 01/18/2025 9:32 PM CDT 01/18/2025 9:50 PM CDT Lilian Hunter MD LAB BLOOD ORDERABLES Final Resul t Performing Organization Address City/[facility] de Phone Number [facility] Department [place] [address] * Type and screen (01/18/2025 9:32 PM CDT) Pathologist [facility] Matthew, indirect Negative ABO Rh A Positive [facility] Blood 01/18/2025 9:32 PM CDT 01/18/2025 9:54 PM CDT Narrative [facility] - 01/18/2025 11:05 PM CDT Has the patient had Daratumumab or Isatuximab in the past 6 months?->Unknown Lilian Hunter MD LAB BLOOD BANK TEST ORDERABLES F inal Result Performing Organization Address [facility] Co de Phone Number [facility] Department [place] [address] * Uric acid (01/18/2025 9:32 PM CDT) Pathologist [facility] Uric acid 3.8 2.5 - 7.0 mg/dL Blood 01/18/2025 9:32 PM CDT 01/18/2025 9:44 PM CDT Lilian Hunter MD LAB BLOOD ORDERABLES Final Resul t Performing Organization Address City/[facility] Co de Phone Number [facility] [place] [address] * (ABNORMAL) Lactate dehydrogenase (LD) (01/18/2025 9:32 PM CDT) Pathologist [facility] Lactate dehydrogenase (LDH) 262(H) 100 - 250 Units/L Blood 01/18/2025 9:32 PM CDT 01/18/2025 9:44 PM CDT Lilian Hunter MD LAB BLOOD ORDERABLES Final Resul t Performing Organization Address [facility] Co de Phone Number [facility] Department [place] [address] * (ABNORMAL) Comprehensive metabolic panel (01/18/2025 9:32 PM CDT) Pathologist [facility] Sodium 138 135 - 145 mmol/L Potassium, pl 4.4 3.3 - 4.9 mmol/L [facility] Chloride 106 97 - 110 mmol/L [facility] CO2 26 22 - 32 mmol/L [facility] Anion gap 6 2 - 15 mmol/L [facility] BUN 9 6 - 25 mg/dL [facility] Creatinine 1.13(H) 0.60 - 1.10 mg/dL [facility] Glucose 105 70 - 199 mg/dL [facility] Comment: Interpretive Data Fasting glucose >/= 126 [...] 2022. Calcium 8.9 8.5 - 10.3 mg/dL [facility] Bilirubin, total 0.4 0.1 - 1.2 mg/dL [facility] Protein, pl 6.2(L) 6.5 - 8.5 g/dL [facility] Albumin 3.2(L) 3.5 - 5.0 g/dL [facility] Alk phos 51 40 - 130 Units/L [facility] ALT 15 7 - 45 Units/L [facility] AST 26 10 - 45 Units/L [facility] Blood 01/18/2025 9:32 PM CDT 01/18/2025 9:44 PM CDT Bozena Bonilla MD LAB BLOOD ORDERABLES Final R esult Performing Organization Address City/[facility]/ZIP Co de Phone Number [facility] [place] [address] * POCT glucose (01/18/2025 8:22 PM CDT) Glucose, POC 108 70 - 199 mg/dL Blood 01/18/2025 8:22 PM CDT 01/18/2025 8:22 PM CDT Bozena Bonilla MD LAB POCT ORDERABLES - DEVICE Final Result Performing Organization Address [facility] Co de Phone Number [facility] [place] [address] * POCT glucose (01/18/2025 5:17 PM CDT) Glucose, POC 80 70 - 199 mg/dL Blood 01/18/2025 5:17 PM CDT 01/18/2025 5:17 PM CDT Bozena Bonilla MD LAB POCT ORDERABLES - DEVICE Final Result Performing Organization Address City/[facility]/ZIP Co de Phone Number [facility] [place] [address] * POCT glucose (01/18/2025 12:26 PM CDT) Glucose, POC 92 70 - 199 mg/dL Blood 01/18/2025 12:2 6 PM CDT 01/18/2025 12:26 PM CDT Bozena Bonilla MD LAB POCT ORDERABLES - DEVICE Final Result Performing Organization Address [facility] Phone Number [facility] [place] [address] * POCT glucose (01/18/2025 8:58 AM CDT) Glucose, POC 86 70 - 199 mg/dL Blood 01/18/2025 8:58 AM CDT 01/18/2025 8:58 AM CDT Bozena Bonilla MD LAB POCT ORDERABLES - DEVICE Final Result Performing Organization Address [facility] de Phone Number [facility] [place] [address] * Sodium, urine, random (01/18/2025 8:46 AM CDT) Pathologist [facility] Sodium, ur 121 mmol/L Comment: Interpretive Data No reference range established. Current interpretive data was last revised 2018. Urine (Urine, Clean Catch) 01/18/2025 8:46 AM CDT 01/18/2025 9:02 AM CDT Bozena Bonilla MD LAB URINE ORDERABLES Final R esult Performing Organization Address [facility] de Phone Number [facility] [place] [address] * Potassium, urine, random (01/18/2025 8:46 AM CDT) Potassium conc, ur 14.8 mmol/L Comment: Interpretive Data No reference range established. Current interpretive data was last revised 2018. Urine (Urine, Clean Catch) 01/18/2025 8:46 AM CDT 01/18/2025 9:02 AM CDT Bozena Bonilla MD LAB URINE ORDERABLES Final R esult Performing Organization Address [facility] Co de Phone Number [facility] [place] [address] * Creatinine, urine, random (01/18/2025 8:46 AM CDT) Creatinine Ur 45.8 mg/dL Comment: Interpretive Data No reference range established. Current interpretive data was last revised 2018. Urine 01/18/2025 8:46 AM CDT 01/18/2025 9:02 AM CDT Bozena Bonilla MD LAB URINE ORDERABLES Final R esult Performing Organization Address [facility] de Phone Number [facility] [place] [address] * Chloride, urine, random (01/18/2025 8:46 AM CDT) Chloride, ur 120 mmol/L Comment: Interpretive Data No reference range established. Current interpretive data was last revised 2018. Urine (Urine, Clean Catch) 01/18/2025 8:46 AM CDT 01/18/2025 9:02 AM CDT Bozena Bonilla MD LAB URINE ORDERABLES Final R esult Performing Organization Address [facility] Co de Phone Number [facility] [place] [address] * (ABNORMAL) eGFR (01/17/2025 8:50 PM CDT) eGFR 48(L) >=60 mL/min/1. 73 m2 Comment: [...] MD LAB BLOOD ORDERABLES Final R esult [facility] [place] [address] * Differential, auto (01/17/2025 8:50 PM CDT) [facility] Neutrophil abs 2.81 1.50 - 6.50 K/cumm Imm gran abs 0.02 0.00 - 0.10 K/cumm [facility] Lymphocyte abs 2.66 0.80 - 3.30 K/cumm [facility] Monocyte abs 0.57 0.20 - 0.80 K/cumm [facility] Eosinophil abs 0.05 0.00 - 0.50 K/cumm [facility] Basophil abs 0.02 0.00 - 0.10 K/cumm [facility] Neutrophil pct 45.9 % [facility] Comment: Differential consistent with previous result. Interpretive Data Percent cell count reference ranges are not reported, since discordance with absolute values may lead to misinterpretation of CBC data. Current Interpretive Data was last revised on 2017. Imm gran pct 0.3 % [facility] Comment: Interpretive Data Percent cell count reference ranges are not reported, since discordance with absolute values may lead to misinterpretation of CBC data. Current Interpretive Data was last revised on 2017. Lymphocyte pct 43.4 % [facility] Comment: Interpretive Data Percent cell count reference ranges are not reported, since discordance with absolute values may lead to misinterpretation of CBC data. Current Interpretive Data was last revised on 2017. Monocyte pct 9.3 % [facility] Comment: Interpretive Data Percent cell count reference ranges are not reported, since discordance with absolute values may lead to misinterpretation of CBC data. Current Interpretive Data was last revised on 2017. Eosinophil pct 0.8 % [facility] Comment: Interpretive Data Percent cell count reference ranges are not reported, since discordance with absolute values may lead to misinterpretation of CBC data. Current Interpretive Data was last revised on 2017. Basophil pct 0.3 % [facility] Comment: Interpretive Data Percent cell count reference ranges are not reported, since discordance with absolute values may lead to misinterpretation of CBC data. Current Interpretive Data was last revised on 2017. Blood 01/17/2025 8:50 PM CDT 01/17/2025 9:04 PM CDT us Bozena Bonilla MD LAB BLOOD ORDERABLES Final R esult [facility] [place] [address] * (ABNORMAL) CBC with auto differential (01/17/2025 8:50 PM CDT) WBC 6.13 3.80 - 9.90 K/cumm Hgb 10.8(L) 11.9 - 15.5 g/dL [facility] Hct 34.5(L) 35.6 - 45.5 % [facility] Plt 136(L) 150 - 400 K/cumm [facility] MPV 11.1 9.1 - 12.3 fL [facility] RBC 4.57 3.90 - 5.20 M/cumm [facility] MCV 75.5(L) 81.3 - 96.4 fL [facility] MCH 23.6(L) 27.1 - 33.3 pg [facility] MCHC 31.3(L) 32.3 - 35.7 g/dL [facility] RDW CV 21.1(H) 11.1 - 14.9 % [facility] RDW SD 56.1(H) 35.7 - 48.1 fL [facility] NRBC abs 0.00 0.00 - 0.01 K/cumm [facility] Blood 01/17/2025 8:50 PM CDT 01/17/2025 9:04 PM CDT us Bozena Bonilla MD LAB BLOOD ORDERABLES Final R esult [facility] Department [place] [address] * (ABNORMAL) Comprehensive metabolic panel (01/17/2025 8:50 PM CDT) Sodium 144 135 - 145 mmol/L Potassium, pl 4.3 3.3 - 4.9 mmol/L [facility] Chloride 110 97 - 110 mmol/L [facility] CO2 26 22 - 32 mmol/L [facility] Anion gap 8 2 - 15 mmol/L [facility] BUN 9 6 - 25 mg/dL [facility] Creatinine 1.25(H) 0.60 - 1.10 mg/dL [facility] Glucose 117 70 - 199 mg/dL [facility] Comment: Interpretive Data Fasting glucose >/= 126 [...] Calcium 8.9 8.5 - 10.3 mg/dL [facility] Bilirubin, total 0.4 0.1 - 1.2 mg/dL [facility] Protein, pl 6.4(L) 6.5 - 8.5 g/dL [facility] Albumin 3.1(L) 3.5 - 5.0 g/dL [facility] Alk phos 50 40 - 130 Units/L [facility] ALT 12 7 - 45 Units/L [facility] AST 22 10 - 45 Units/L [facility] Blood 01/17/2025 8:50 PM CDT 01/17/2025 9:04 PM CDT Result [facility] us Bozena Bonilla MD LAB BLOOD ORDERABLES Final R esult Performing Organization Address City/[facility]/ZIP Co de Phone Number [facility] [place] [address] * POCT glucose (01/17/2025 8:05 PM CDT) Glucose, POC 113 70 - 199 mg/dL Blood 01/17/2025 8:05 PM CDT 01/17/2025 8:05 PM CDT Bozena Bonilla MD LAB POCT ORDERABLES - DEVICE Final Result [facility] [place] [address] * POCT glucose (01/17/2025 5:56 PM CDT) Glucose, POC 110 70 - 199 mg/dL Blood 01/17/2025 5:56 PM CDT 01/17/2025 5:56 PM CDT us Bozena Bonilla MD LAB POCT ORDERABLES - DEVICE Final Result Performing Organization Address [facility] Co de Phone Number [facility] [place] [address] * POCT glucose (01/17/2025 12:42 PM CDT) Glucose, POC 106 70 - 199 mg/dL Blood 01/17/2025 12:4 2 PM CDT 01/17/2025 12:42 PM CDT Bozena Bonilla MD LAB POCT ORDERABLES - DEVICE Final Result Performing Organization Address [facility] Co de Phone Number [facility] [place] [address] * POCT glucose (01/17/2025 7:59 AM CDT) Glucose, POC 89 70 - 199 mg/dL Blood 01/17/2025 7:59 AM CDT 01/17/2025 7:59 AM CDT Bozena Bonilla MD LAB POCT ORDERABLES - DEVICE Final Result Performing Organization Address [facility] Co de Phone Number [facility] [place] [address] * (ABNORMAL) eGFR (01/16/2025 10:32 PM CDT) [...] MD LAB BLOOD ORDERABLES Final R esult [facility] [place] [address] * Differential, auto (01/16/2025 10:32 PM CDT) Neutrophil abs 3.02 1.50 - 6.50 K/cumm Imm gran abs 0.02 0.00 - 0.10 K/cumm [facility] Lymphocyte abs 2.38 0.80 - 3.30 K/cumm [facility] Monocyte abs 0.61 0.20 - 0.80 K/cumm [facility] Eosinophil abs 0.06 0.00 - 0.50 K/cumm [facility] Basophil abs 0.01 0.00 - 0.10 K/cumm [facility] Neutrophil pct 49.5 % [facility] Comment: Interpretive Data Percent cell count reference ranges are not reported, since discordance with absolute values may lead to misinterpretation of CBC data. Current Interpretive Data was last revised on 2017. Imm gran pct 0.3 % [facility] Comment: Interpretive Data Percent cell count reference ranges are not reported, since discordance with absolute values may lead to misinterpretation of CBC data. Current Interpretive Data was last revised on 2017. Lymphocyte pct 39.0 % [facility] Comment: Interpretive Data Percent cell count reference ranges are not reported, since discordance with absolute values may lead to misinterpretation of CBC data. Current Interpretive Data was last revised on 2017. Monocyte pct 10.0 % [facility] Comment: Interpretive Data Percent cell count reference ranges are not reported, since discordance with absolute values may lead to misinterpretation of CBC data. Current Interpretive Data was last revised on 2017. Eosinophil pct 1.0 % [facility] Comment: Interpretive Data Percent cell count reference ranges are not reported, since discordance with absolute values may lead to misinterpretation of CBC data. Current Interpretive Data was last revised on 2017. Basophil pct 0.2 % [facility] Comment: Interpretive Data Percent cell count reference ranges are not reported, since discordance with absolute values may lead to misinterpretation of CBC data. Current Interpretive Data was last revised on 2017. Blood 01/16/2025 10:3 2 PM CDT 01/16/2025 10:46 PM CDT Bozena Bonilla MD LAB BLOOD ORDERABLES Final R esult [facility] Department [place] [address] * (ABNORMAL) CBC with auto differential (01/16/2025 10:32 PM CDT) WBC 6.10 3.80 - 9.90 K/cumm Hgb 10.4(L) 11.9 - 15.5 g/dL [facility] Hct 33.9(L) 35.6 - 45.5 % [facility] Plt 134(L) 150 - 400 K/cumm [facility] MPV 11.6 9.1 - 12.3 fL [facility] RBC 4.39 3.90 - 5.20 M/cumm [facility] MCV 77.2(L) 81.3 - 96.4 fL [facility] MCH 23.7(L) 27.1 - 33.3 pg [facility] MCHC 30.7(L) 32.3 - 35.7 g/dL [facility] RDW CV 21.2(H) 11.1 - 14.9 % [facility] RDW SD 57.7(H) 35.7 - 48.1 fL [facility] NRBC abs 0.00 0.00 - 0.01 K/cumm [facility] Blood 01/16/2025 10:3 2 PM CDT 01/16/2025 10:46 PM CDT Bozena Bonilla MD LAB BLOOD ORDERABLES Final R esult [facility] Department [place] [address] * (ABNORMAL) Comprehensive metabolic panel (01/16/2025 10:32 PM CDT) Sodium 144 135 - 145 mmol/L Potassium, pl 4.6 3.3 - 4.9 mmol/L [facility] Chloride 110 97 - 110 mmol/L [facility] CO2 26 22 - 32 mmol/L [facility] Anion gap 8 2 - 15 mmol/L [facility] BUN 6 6 - 25 mg/dL [facility] Creatinine 1.20(H) 0.60 - 1.10 mg/dL [facility] Glucose 125 70 - 199 mg/dL [facility] Comment: Interpretive Data Fasting glucose >/= 126 [...] 2022. Calcium 9.0 8.5 - 10.3 mg/dL [facility] Bilirubin, total 0.5 0.1 - 1.2 mg/dL [facility] Protein, pl 6.3(L) 6.5 - 8.5 g/dL [facility] Albumin 3.1(L) 3.5 - 5.0 g/dL [facility] Alk phos 48 40 - 130 Units/L [facility] ALT 13 7 - 45 Units/L [facility] AST 26 10 - 45 Units/L [facility] Blood 01/16/2025 10:3 2 PM CDT 01/16/2025 10:46 PM CDT Bozena Bonilla MD LAB BLOOD ORDERABLES Final R esult Performing Organization Address City/[facility]/ZIP Co de Phone Number [facility] [place] [address] * POCT glucose (01/16/2025 8:47 PM CDT) Glucose, POC 111 70 - 199 mg/dL Blood 01/16/2025 8:47 PM CDT 01/16/2025 8:47 PM CDT Bozena Bonilla MD LAB POCT ORDERABLES - DEVICE Final Result Performing Organization Address [facility] Co de Phone Number [facility] [place] [address] * POCT glucose (01/16/2025 5:05 PM CDT) Glucose, POC 111 70 - 199 mg/dL Blood 01/16/2025 5:05 PM CDT 01/16/2025 5:05 PM CDT Bozena Bonilla MD LAB POCT ORDERABLES - DEVICE Final Result Performing Organization Address City/[facility] Co de Phone Number [facility] [place] [address] * POCT glucose (01/16/2025 12:49 PM CDT) Glucose, POC 96 70 - 199 mg/dL Blood 01/16/2025 12:4 9 PM CDT 01/16/2025 12:49 PM CDT us Bozena Bonilla MD LAB POCT ORDERABLES - DEVICE Final Result [facility] [place] [address] * POCT glucose (01/16/2025 7:52 AM CDT) Glucose, POC 83 70 - 199 mg/dL Blood 01/16/2025 7:52 AM CDT 01/16/2025 7:52 AM CDT us Lorene Prince MD LAB POCT ORDERABLES - DEVICE Final Result Performing Organization Address [facility] Co de Phone Number [facility] [place] [address] * (ABNORMAL) eGFR (01/15/2025 11:41 PM CDT) eGFR 54(L) >=60 mL/min/1. 73 m2 Comment: [...] MD LAB BLOOD ORDERABLES Final Resul t [facility] Department [place] [address] * Differential, auto (01/15/2025 11:41 PM CDT) Neutrophil abs 2.01 1.50 - 6.50 K/cumm Imm gran abs 0.02 0.00 - 0.10 K/cumm [facility] Lymphocyte abs 2.12 0.80 - 3.30 K/cumm [facility] Monocyte abs 0.60 0.20 - 0.80 K/cumm [facility] Eosinophil abs 0.08 0.00 - 0.50 K/cumm [facility] Basophil abs 0.01 0.00 - 0.10 K/cumm [facility] Neutrophil pct 41.5 % [facility] Comment: Interpretive Data Percent cell count reference ranges are not reported, since discordance with absolute values may lead to misinterpretation of CBC data. Current Interpretive Data was last revised on 2017. Imm gran pct 0.4 % [facility] Comment: Interpretive Data Percent cell count reference ranges are not reported, since discordance with absolute values may lead to misinterpretation of CBC data. Current Interpretive Data was last revised on 2017. Lymphocyte pct 43.8 % [facility] Comment: Interpretive Data Percent cell count reference ranges are not reported, since discordance with absolute values may lead to misinterpretation of CBC data. Current Interpretive Data was last revised on 2017. Monocyte pct 12.4 % [facility] Comment: Interpretive Data Percent cell count reference ranges are not reported, since discordance with absolute values may lead to misinterpretation of CBC data. Current Interpretive Data was last revised on 2017. Eosinophil pct 1.7 % [facility] Comment: Interpretive Data Percent cell count reference ranges are not reported, since discordance with absolute values may lead to misinterpretation of CBC data. Current Interpretive Data was last revised on 2017. Basophil pct 0.2 % [facility] Comment: Interpretive Data Percent cell count reference ranges are not reported, since discordance with absolute values may lead to misinterpretation of CBC data. Current Interpretive Data was last revised on 2017. Blood 01/15/2025 11:4 1 PM CDT 01/16/2025 12:15 AM CDT Lilian Hunter MD LAB BLOOD ORDERABLES Final Resul t Performing Organization Address [facility] de Phone Number [facility] [place] [address] * (ABNORMAL) CBC with auto differential (01/15/2025 11:41 PM CDT) WBC 4.84 3.80 - 9.90 K/cumm Hgb 10.9(L) 11.9 - 15.5 g/dL [facility] Hct 34.9(L) 35.6 - 45.5 % [facility] Plt 132(L) 150 - 400 K/cumm [facility] MPV Not Measured 9.1 - 12.3 fL [facility] RBC 4.58 3.90 - 5.20 M/cumm [facility] MCV 76.2(L) 81.3 - 96.4 fL [facility] MCH 23.8(L) 27.1 - 33.3 pg [facility] MCHC 31.2(L) 32.3 - 35.7 g/dL [facility] RDW CV 21.2(H) 11.1 - 14.9 % [facility] RDW SD 57.7(H) 35.7 - 48.1 fL [facility] NRBC abs 0.00 0.00 - 0.01 K/cumm [facility] Blood 01/15/2025 11:4 1 PM CDT 01/16/2025 12:15 AM CDT Lilian Hunter MD LAB BLOOD ORDERABLES Final Resul t Performing Organization Address [facility] Co de Phone Number [facility] Department [place] [address] * aPTT (01/15/2025 11:41 PM CDT) aPTT 35 26 - 38 sec Comment: Interpretive Data Heparin therapeutic range: 66.0 - 100.0 seconds. Range based on correlation with therapeutic heparin activity range of 0.3 - 0.7 Units/mL. Current interpretive data was last revised on 2023. Blood 01/15/2025 11:4 1 PM CDT 01/16/2025 12:26 AM CDT Lilian Hunter MD LAB BLOOD ORDERABLES Final Resul t Performing Organization Address [facility] [place] [address] * Protime-INR (01/15/2025 11:41 PM CDT) PT 11.3 10.2 - 13.5 sec INR 1.00 0.90 - 1.20 [facility] Comment: Interpretive data Oral anticoagulant therapeutic ranges: Venous thromboembolism prophylaxis or treatment: 2.0-3.0 CARDIOLOGY Standard range: 2.0-3.0 High-intensity range: 2.5-3.5 Refer to indication-specific guidelines for appropriate target ranges for prosthetic heart valve replacement. Current interpretive data was last revised on 2019. Blood 01/15/2025 11:4 1 PM CDT 01/16/2025 12:26 AM CDT Lilian Hunter MD LAB BLOOD ORDERABLES Final Resul t Performing Organization Address [facility] [place] [address] * Type and screen (01/15/2025 11:41 PM CDT) ABO Rh A Positive Matthew, indirect Negative [facility] Blood 01/15/2025 11:4 1 PM CDT 01/16/2025 12:13 AM CDT Narrative [facility] - 01/16/2025 1:00 AM CDT Has the patient had Daratumumab or Isatuximab in the past 6 months?->Unknown Lilian Hunter MD LAB BLOOD BANK TEST ORDERABLES F inal Result Performing Organization Address [facility] Co de Phone Number [facility] [place] [address] * Uric acid (01/15/2025 11:41 PM CDT) Pathologist [facility] Uric acid 4.5 2.5 - 7.0 mg/dL Blood 01/15/2025 11:4 1 PM CDT 01/16/2025 12:15 AM CDT Lilian Hunter MD LAB BLOOD ORDERABLES Final Resul t Performing Organization Address [facility] de Phone Number [facility] [place] [address] * (ABNORMAL) Phosphorus (01/15/2025 11:41 PM CDT) Pathologist [facility] Phosphorus, pl 2.1(L) 2.3 - 4.5 mg/dL Blood 01/15/2025 11:4 1 PM CDT 01/16/2025 12:15 AM CDT Lilian Hunter MD LAB BLOOD ORDERABLES Final Resul t Performing Organization Address [facility] Co de Phone Number [facility] [place] [address] * (ABNORMAL) Lactate dehydrogenase (LD) (01/15/2025 11:41 PM CDT) Lactate dehydrogenase (LDH) 309(H) 100 - 250 Units/L Comment:Hemolyzed; result ma y be falsely elevated Blood 01/15/2025 11:4 1 PM CDT 01/16/2025 12:15 AM CDT us Lilian Hunter MD LAB BLOOD ORDERABLES Final Resul t [facility] Department [place] [address] * (ABNORMAL) Comprehensive metabolic panel (01/15/2025 11:41 PM CDT) [facility] Sodium 140 135 - 145 mmol/L Potassium, pl 4.0 3.3 - 4.9 mmol/L [facility] Comment:Hemolyzed; Potassium value may be falsely elevated by as much as 0.3-0.5 mmol/L. Suggest redraw and reanalysis. Chloride 109 97 - 110 mmol/L [facility] CO2 22 22 - 32 mmol/L [facility] Anion gap 9 2 - 15 mmol/L [facility] BUN 10 6 - 25 mg/dL [facility] Creatinine 1.13(H) 0.60 - 1.10 mg/dL [facility] Glucose 97 70 - 199 mg/dL [facility] Comment: Interpretive Data Fasting glucose >/= 126 [...] 2022. Calcium 8.1(L) 8.5 - 10.3 mg/dL [facility] Bilirubin, total 0.6 0.1 - 1.2 mg/dL [facility] Protein, pl 6.1(L) 6.5 - 8.5 g/dL [facility] Albumin 3.0(L) 3.5 - 5.0 g/dL [facility] Alk phos 57 40 - 130 Units/L [facility] ALT 14 7 - 45 Units/L [facility] AST 31 10 - 45 Units/L [facility] Comment:Hemolyzed; result ma y be falsely elevated Blood 01/15/2025 11:4 1 PM CDT 01/16/2025 12:15 AM CDT Lilian Hunter MD LAB BLOOD ORDERABLES Final Resul t Performing Organization Address City/[facility] Co de Phone Number [facility] [place] [address] * POCT glucose (01/15/2025 9:54 PM CDT) [facility] Glucose, POC 94 70 - 199 mg/dL Blood 01/15/2025 9:54 PM CDT 01/15/2025 9:54 PM CDT us Lorene Prince MD LAB POCT ORDERABLES - DEVICE Final Result Performing Organization Address [facility] [place] [address] * POCT glucose (01/15/2025 6:29 PM CDT) [facility] Glucose, POC 141 70 - 199 mg/dL Blood 01/15/2025 6:29 PM CDT 01/15/2025 6:29 PM CDT Lorene Prince MD LAB POCT ORDERABLES - DEVICE Final Result Performing Organization Address [facility] [place] [address] * Respiratory pathogen panel Nasopharyngeal (01/15/2025 2:42 PM CDT) [facility] Influenza A RNA Not Detected Not Detected Influenza B RNA Not Detected Not Detected [facility] RSV RNA Not Detected Not Detected [facility] COVID-19 RNA Not Detected Not Detected [facility] Coronavirus 229E RNA Not Detected Not Detected [facility] Coronavirus HKU1 RNA Not Detected Not Detected [facility] Coronavirus NL63 RNA Not Detected Not Detected [facility] Coronavirus OC43 RNA Not Detected Not Detected [facility] Adenovirus DNA Not Detected Not Detected [facility] Metapneumovirus RNA Not Detected Not Detected [facility] Rhinovirus/Enterov irus RNA Not Detected Not Detected [facility] Parainfluenza 1 RNA Not Detected Not Detected [facility] Parainfluenza 2 RNA Not Detected Not Detected [facility] Parainfluenza 3 RNA Not Detected Not Detected [facility] Parainfluenza 4 RNA Not Detected Not Detected [facility] B. pertussis DNA Not Detected Not Detected [facility] B. parapertussis DNA Not Detected Not Detected [facility] C. pneumoniae DNA Not Detected Not Detected [facility] M. pneumoniae DNA Not Detected Not Detected [facility] Nasopharyngeal 01/15/2025 2: 42 PM CDT 01/15/2025 2:51 PM CDT Narrative [facility] - 01/15/2025 4:25 PM CDT Is the Patient experiencing symptoms consistent with COVID?->Yes Surveillance testing for transplant patient?->No Interpretive Data The [email or web address] FilmArray Respiratory Panel (RP2.1) assay is a [...] assay has FDA clearance for testing of [facility] swabs. The performance of additional specimen types has been assessed by the performing laboratory. The performance characteristics of this assay have been determined by [facility] Molecular Infectious Disease Laboratory. Current interpretive data was last revised on 22. Lilian Hunter MD LAB MICROBIOLOGY - GENERAL ORDER ROJAS Final Result Performing Organization Address City/State/[facility] Co de Phone Number [facility] Department [place] [address] * Cryptosporidium and Giardia antigen assay Stool (01/15/2025 2:35 PM CDT) Giardia Ag Negative Negative Cryptosporidium Ag Negative Negative [facility] Comment: Interpretive data: Testing performed by the [facility] Microbiology Laboratory using an immunoassay that detects Cryptosporidium and Giardia antigens in stool specimens. If comprehensive examination for ova and parasites is required, please request Ova and Parasite Examination. Stool 01/15/2025 2:35 PM CDT 01/15/2025 4:41 PM CDT Carmen Pace [facility] LAB MICROBIOLOGY - GENER AL ORDERABLES Final Result Performing Organization Address City/[facility]/ZIP Co de Phone Number [facility] [place] [address] * (ABNORMAL) C. difficile testing Stool (01/15/2025 12:00 PM CDT) [facility] Result Positive Negative Toxin Result Positive Negative [facility] C. diff result Positive, free toxin(A) Negative, free toxin [facility] C. diff interp Toxigenic Clostridioides (Clostridium) difficile detected. Analysis was performed using a two-step methodology using glutamate dehydrogenase antigen detection followed by detection of C. difficile toxin(s). [facility] Stool 01/15/2025 12:0 0 PM CDT 01/15/2025 1:25 PM CDT Claudine Pate NP LAB MICROBIOLOGY - GENERA L ORDERABLES Final Result Performing Organization Address [facility] Co de Phone Number [facility] Department [place] [address] * Norovirus PCR Stool (01/15/2025 12:00 PM CDT) [facility] Norovirus GI RNA Not Detected Not Detected [facility] Norovirus GII RNA Not Detected Not Detected [facility] Comment: Interpretive data: Testing performed at the [facility] Laboratory using the [employer] Xpert Norovirus Assay. This assay uses nucleic [...] AL ORDERABLES Final Result Performing Organization Address [facility] Co de Phone Number [facility] [place] [address] [facility] * Stool culture Stool (01/15/2025 12:00 PM CDT) Direct Specimen Exam Shiga Toxin Testing: Antigen detection assay for Shiga-toxin NEGATIVE for Shiga Toxin 1 and Shiga Toxin 2. Report Final Report: No growth of enteric bacterial pathogens [facility] Stool 01/15/2025 12:0 0 PM CDT 01/15/2025 1:24 PM CDT Narrative [facility] - 01/19/2025 9:26 AM CDT Specimen received in a sterile container. Testing performed by [facility] Microbiology Laboratory ([phone]). Routine stool cultures include procedures to detect Salmonella, Shigella, Edwardsiella, Aeromonas, Pleisiomonas, Campylobacter, Yersinia, E. coli O157, and Shiga-like toxins. Vibrio is cultured only upon special request. If Vibrio is suspected, please call the laboratory at [phone]. Interpretive data was last updated September 11, 2016. Carmen Pace NP LAB MICROBIOLOGY - GENER AL ORDERABLES Final Result Performing Organization Address City/[facility] Co de Phone Number [facility] [place] [address] * CT Chest Abdomen Pelvis W Contrast [...] Electronically signed by: Mary Ellen Pepper MD Claudine Pate NP IMG CT PROCEDURES Final [...] CDT 01/14/2025 7:01 PM CDT Claudine Pate [facility] LAB BLOOD ORDERABLES Autumn l Result [facility] Department [place] [address] * Thyroid Function [place] (01/14/2025 6:37 PM CDT) Pathologist [facility] TSH 0.97 0.30 - 4.20 mcIUnit/mL Blood 01/14/2025 6:37 PM CDT 01/14/2025 7:01 PM CDT Carmen Pace [facility] LAB BLOOD ORDERABLES Fin al Result Performing Organization Address [facility] Co de Phone Number [facility] Department [place] [address] * Comprehensive metabolic panel (01/14/2025 6:37 PM CDT) [facility] Sodium 139 135 - 145 mmol/L Potassium, pl 4.2 3.3 - 4.9 mmol/L [facility] Comment:Hemolyzed; Potassium value may be falsely elevated by as much as 0.3-0.5 mmol/L. Suggest redraw and reanalysis. Chloride 103 97 - 110 mmol/L [facility] CO2 25 22 - 32 mmol/L [facility] Anion gap 11 2 - 15 mmol/L [facility] BUN 14 6 - 25 mg/dL [facility] Creatinine 1.04 0.60 - 1.10 mg/dL [facility] Glucose 78 70 - 199 mg/dL [facility] Comment: Interpretive Data Fasting glucose >/= 126 [...] 2022. Calcium 9.2 8.5 - 10.3 mg/dL [facility] Bilirubin, total 1.1 0.1 - 1.2 mg/dL [facility] Protein, pl 7.2 6.5 - 8.5 g/dL [facility] Albumin 3.5 3.5 - 5.0 g/dL [facility] Alk phos 59 40 - 130 Units/L [facility] ALT 17 7 - 45 Units/L [facility] AST 34 10 - 45 Units/L [facility] Comment:Hemolyzed; result ma y be falsely elevated Blood 01/14/2025 6:37 PM CDT 01/14/2025 7:01 PM CDT Claudine Pate NP LAB BLOOD ORDERABLES Autumn lombardo Result [facility] [place] [address] * eGFR (01/14/2025 5:00 PM CDT) eGFR [...] NP LAB BLOOD ORDERABLES Autumn lombardo Result [facility] [place] [address] * Differential, auto (01/14/2025 5:00 PM CDT) Pathologist [facility] Neutrophil abs 2.76 1.50 - 6.50 K/cumm Imm gran abs 0.02 0.00 - 0.10 K/cumm [facility] Lymphocyte abs 1.95 0.80 - 3.30 K/cumm [facility] Monocyte abs 0.46 0.20 - 0.80 K/cumm [facility] Eosinophil abs 0.06 0.00 - 0.50 K/cumm [facility] Basophil abs 0.02 0.00 - 0.10 K/cumm [facility] Neutrophil pct 52.4 % [facility] Comment: Interpretive Data Percent cell count reference ranges are not reported, since discordance with absolute values may lead to misinterpretation of CBC data. Current Interpretive Data was last revised on 2017. Imm gran pct 0.4 % [facility] Comment: Interpretive Data Percent cell count reference ranges are not reported, since discordance with absolute values may lead to misinterpretation of CBC data. Current Interpretive Data was last revised on 2017. Lymphocyte pct 37.0 % [facility] Comment: Interpretive Data Percent cell count reference ranges are not reported, since discordance with absolute values may lead to misinterpretation of CBC data. Current Interpretive Data was last revised on 2017. Monocyte pct 8.7 % [facility] Comment: Interpretive Data Percent cell count reference ranges are not reported, since discordance with absolute values may lead to misinterpretation of CBC data. Current Interpretive Data was last revised on 2017. Eosinophil pct 1.1 % [facility] Comment: Interpretive Data Percent cell count reference ranges are not reported, since discordance with absolute values may lead to misinterpretation of CBC data. Current Interpretive Data was last revised on 2017. Basophil pct 0.4 % [facility] Comment: Interpretive Data Percent cell count reference ranges are not reported, since discordance with absolute values may lead to misinterpretation of CBC data. Current Interpretive Data was last revised on 2017. Blood 01/14/2025 5:00 PM CDT 01/14/2025 5:10 PM CDT Claudine Pate [facility]NA[facility] LAB BLOOD ORDERABLES Autumn grupo Result [facility] [place] [address] * (ABNORMAL) CBC with auto differential (01/14/2025 5:00 PM CDT) WBC 5.27 3.80 - 9.90 K/cumm Hgb 12.9 11.9 - 15.5 g/dL [facility] Hct 41.3 35.6 - 45.5 % [facility] Plt 122(L) 150 - 400 K/cumm [facility] Comment:No clot detected in sample. MPV Not Measured 9.1 - 12.3 fL [facility] RBC 5.40(H) 3.90 - 5.20 M/cumm [facility] MCV 76.5(L) 81.3 - 96.4 fL [facility] MCH 23.9(L) 27.1 - 33.3 pg [facility] MCHC 31.2(L) 32.3 - 35.7 g/dL [facility] RDW CV 21.4(H) 11.1 - 14.9 % [facility] RDW SD 57.3(H) 35.7 - 48.1 fL [facility] NRBC abs 0.00 0.00 - 0.01 K/cumm [facility] Blood 01/14/2025 5:00 PM CDT 01/14/2025 5:10 PM CDT Claudine Pate NP LAB BLOOD ORDERABLES Autumn l Result Performing Organization Address City/[facility] Co de Phone Number [facility] [place] [address] * (ABNORMAL) Phosphorus (01/14/2025 5:00 PM CDT) [facility] Phosphorus, pl 2.2(L) 2.3 - 4.5 mg/dL Comment:Hemolyzed; result ma y be falsely elevated Blood Venous blood specimen / Unknown 01/14/2025 5:00 PM CDT 01/14/2025 5:10 PM CDT Claudine Pate NP LAB BLOOD ORDERABLES Autumn l Result Performing Organization Address [facility] de Phone Number [facility] [place] [address] * Magnesium (01/14/2025 5:00 PM CDT) [facility] Magnesium 2.1 1.4 - 2.5 mg/dL Blood Venous blood specimen / Unknown 01/14/2025 5:00 PM CDT 01/14/2025 5:10 PM CDT Claudine Pate NP LAB BLOOD ORDERABLES Autumn l Result Performing Organization Address City/[facility] Co de Phone Number [facility] [place] [address] * (ABNORMAL) Comprehensive metabolic panel (01/14/2025 5:00 PM CDT) [facility] Sodium 135 135 - 145 mmol/L Potassium, pl See Comment 3.3 - 4.9 mmol/L [facility] Comment:Credited; Hemolyzed Specimen Chloride 102 97 - 110 mmol/L [facility] CO2 23 22 - 32 mmol/L [facility] Anion gap 10 2 - 15 mmol/L [facility] BUN 14 6 - 25 mg/dL [facility] Creatinine 0.99 0.60 - 1.10 mg/dL [facility] Glucose 80 70 - 199 mg/dL [facility] Comment: Interpretive Data Fasting glucose >/= 126 [...] 2022. Calcium 9.1 8.5 - 10.3 mg/dL [facility] Bilirubin, total 1.0 0.1 - 1.2 mg/dL [facility] Protein, pl 7.4 6.5 - 8.5 g/dL [facility] Albumin 3.4(L) 3.5 - 5.0 g/dL [facility] Alk phos 58 40 - 130 Units/L [facility] Comment:Hemolyzed; result ma y be falsely decreased ALT See Comment 7 - 45 Units/L [facility] Comment:Credited; Hemolyzed Specimen AST See Comment 10 - 45 Units/L [facility] Comment:Credited; Hemolyzed Specimen Blood 01/14/2025 5:00 PM CDT 01/14/2025 5:10 PM CDT us Claudine Pate [facility]NA[facility] LAB BLOOD ORDERABLES Autumn l Result [facility] [place] [address] * [place] ARTHROCENTESIS ASPIR&/INJ MAJOR JT/BURSA W/O US (12/30/2024 [...] last revised 2018. Creatinine Ur 145.7 mg/dL [facility] Comment: Interpretive Data No reference range established. Current interpretive data was last revised 2018. Protein/creatinin e ratio 111.2 0.0 - 180.0 mg/g CR [facility] Urine 12/08/2024 10:1 0 AM CDT 12/08/2024 10:23 AM CDT Lupis Friend NP LAB URINE ORDERABLES Final Result [facility] [place] [address] * (ABNORMAL) eGFR (12/08/2024 10:00 AM CDT) Pathologist [facility] eGFR 52(L) >=60 [...] BLOOD ORDERABLES Final Result [facility] [place] [address] * Differential, auto (12/08/2024 10:00 AM CDT) Pathologist [facility] Neutrophil abs 3.73 1.50 - 6.50 K/cumm Comment:Testing performed by : [facility], [address] [place] [phone] Lymphocyte abs 2.00 0.80 - 3.30 K/cumm [facility] Comment:Testing performed by : [facility], [address] [place] [phone] Monocyte abs 0.55 0.20 - 0.80 K/cumm [facility] Comment:Testing performed by : [facility], [address] [place] [phone] Eosinophil abs 0.08 0.00 - 0.50 K/cumm [facility] Comment:Testing performed by : [facility], [address] [place] [phone] Basophil abs 0.06 0.00 - 0.10 K/cumm [facility] Comment:Testing performed by : [facility], [address] [place] [phone] Neutrophil pct 58.1 % [facility] Comment: Interpretive Data Percent cell count reference ranges are not reported, since discordance with absolute values may lead to misinterpretation of CBC data. Current Interpretive Data was last revised on 2017. Testing performed by: [facility], [address] [place] [phone] Lymphocyte pct 31.2 % [facility] Comment: Interpretive Data Percent cell count reference ranges are not reported, since discordance with absolute values may lead to misinterpretation of CBC data. Current Interpretive Data was last revised on 2017. Testing performed by: [facility], [address] [place] [phone] Monocyte pct 8.5 % [facility] Comment: Interpretive Data Percent cell count reference ranges are not reported, since discordance with absolute values may lead to misinterpretation of CBC data. Current Interpretive Data was last revised on 2017. Testing performed by: [facility], [address] [place] [phone] Eosinophil pct 1.2 % [facility] Comment: Interpretive Data Percent cell count reference ranges are not reported, since discordance with absolute values may lead to misinterpretation of CBC data. Current Interpretive Data was last revised on 2017. Testing performed by: [facility], [address] [place] [phone] Basophil pct 1.0 % [facility] Comment: Interpretive Data Percent cell count reference ranges are not reported, since discordance with absolute values may lead to misinterpretation of CBC data. Current Interpretive Data was last revised on 2017. Testing performed by: [facility], [address] [place] [phone] Blood 12/08/2024 10:0 0 AM CDT 12/08/2024 10:[address] [facility] LAB BLOOD ORDERABLES Final Result Performing Organization Address [facility] Co de Phone Number [facility] Department [place] [address] * (ABNORMAL) Thyroid Function [place] (12/08/2024 10:00 AM CDT) Pathologist [facility] TSH 0.27(L) 0.30 - 4.20 mcIUnit/mL Blood 12/08/2024 10:0 0 AM CDT 12/08/2024 10:10 AM CDT [facility] MANAGER MENTAL HEALTH LAB BLOOD ORDERABLES Final Result Performing Organization Address City/[facility] de Phone Number [facility] Department [place] [address] * (ABNORMAL) CBC with auto differential (12/08/2024 10:00 AM CDT) [facility] WBC 6.43 3.80 - 9.90 K/cumm Comment:Testing performed by : [facility], [address] [place] [phone] Hgb 12.7 11.9 - 15.5 g/dL [facility] Comment:Testing performed by : [facility], [address] [place] [address] Hct 39.4 35.6 - 45.5 % [facility] Comment:Testing performed by : [facility], [address] [place] [address] Plt 204 150 - 400 K/cumm [facility] Comment:Testing performed by : [facility], [address] [place] [address] MPV 8.9 6.8 - 10.4 fL [facility] Comment:Testing performed by : [facility], [address] [place], [place] [phone] RBC 5.41(H) 3.90 - 5.20 M/cumm [facility] Comment:Testing performed by : [facility], [address] [place], [place] [phone] MCV 72.8(L) 81.3 - 96.4 fL [facility] Comment:Testing performed by : [facility], [address] [place], [place] [phone] MCH 23.5(L) 27.1 - 33.3 pg [facility] Comment:Testing performed by : [facility], [address] [place], [place] [phone] MCHC 32.4 32.3 - 35.7 g/dL [facility] Comment:Testing performed by : [facility], [address] [place], [place] [phone] RDW CV 20.2(H) 11.1 - 14.9 % [facility] Comment:Testing performed by : [facility], [address] [place], [place] [phone] NRBC abs 0.00 0.00 - 0.01 K/cumm [facility] Comment:Testing performed by : [facility], [address] [place], [place] [phone] Blood 12/08/2024 10:0 0 AM CDT 12/08/2024 10:08 AM CDT Lupis Friend MANAGER MENTAL HEALTH LAB BLOOD ORDERABLES Final Result [facility] [place] [address] * Vitamin D 25 hydroxy (12/08/2024 10:00 AM CDT) Vitamin D 25-OH 44 30 - 80 ng/mL Blood 12/08/2024 10:0 0 AM CDT 12/08/2024 10:[address] [facility] LAB BLOOD ORDERABLES Final Result Performing Organization Address City/[facility] Co de Phone Number [facility] [place] [address] * (ABNORMAL) T4, free (12/08/2024 10:00 AM CDT) Free T4 1.79(H) 0.90 - 1.70 ng/dL Blood 12/08/2024 10:0 0 AM CDT 12/08/2024 10:10 AM CDT Narrative [facility] - 12/08/2024 11:11 AM CDT This test was reflexed from a TSH result. [facility] LAB BLOOD ORDERABLES Final Result Performing Organization Address [facility] de Phone Number [facility] [place] [address] * Lipid panel (12/08/2024 10:00 AM CDT) [facility] Cholesterol 154 30 - 199 mg/dL [...] revised on 2017. Triglycerides 104 <=149 mg/dL [facility] Comment: Interpretive Data Ages < or [...] on 2017. HDL 65 >=40 mg/dL [facility] Comment: Interpretive Data Ages < or [...] 2017. LDL, calculated 70 <=129 mg/dL [facility] Comment: Interpretive Data Ages < or [...] on 2023. Non-HDL Cholesterol 89 mg/dL [facility] Comment: Interpretive Data Ages < or [...] last revised on 2017. Chol/HDL ratio 2 [facility] Blood 12/08/2024 10:0 0 AM CDT 12/08/2024 10:10 AM CDT us Lupis Friend NP LAB BLOOD ORDERABLES Final Result [facility] [place] [address] * (ABNORMAL) Comprehensive metabolic panel (12/08/2024 10:00 AM CDT) Sodium 142 135 - 145 mmol/L Potassium, pl 4.1 3.3 - 4.9 mmol/L [facility] Chloride 105 97 - 110 mmol/L [facility] CO2 27 22 - 32 mmol/L [facility] Anion gap 10 2 - 15 mmol/L [facility] BUN 18 6 - 25 mg/dL [facility] Creatinine 1.16(H) 0.60 - 1.10 mg/dL [facility] Glucose 100 70 - 199 mg/dL [facility] Comment: Interpretive Data Fasting glucose >/= 126 [...] 2022. Calcium 9.6 8.5 - 10.3 mg/dL [facility] Bilirubin, total 0.6 0.1 - 1.2 mg/dL [facility] Protein, pl 7.3 6.5 - 8.5 g/dL [facility] Albumin 4.0 3.5 - 5.0 g/dL [facility] Alk phos 72 40 - 130 Units/L [facility] ALT 15 7 - 45 Units/L [facility] AST 28 10 - 45 Units/L [facility] Blood 12/08/2024 10:0 0 AM CDT 12/08/2024 10:10 AM CDT Lupis Friend NP LAB BLOOD ORDERABLES Final Result [facility] [place] [address] * Screening Mammogram Bilateral W Juan (09/23/2024 1:19 PM CDT) Anatomical Region Laterality Modality Breast Bilateral Mammography Narrative 09/24/2024 8:54 AM CDT Mammogram Technique: Bilateral Digital Breast Tomosynthesis, Bilateral C-view 2D Screening mammogram. Views obtained: bilateral craniocaudal and bilateral mediolateral oblique. Computer Aided Detection was performed. Mammogram Findings: The present examination has been compared to prior imaging studies performed at [facility] on 10/31/2019, and at [facility] on 09/19/2022 and 10/04/2023. There [...] compared to prior imaging studies performed [facility], [facility]2023. There are [...] and children were not included. (Diabetes Care 31:[id number], 2008). The eAG is not equivalent to a fasting glucose. 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 MF: JOVAN Report ID: [id number] Reading Location: [id number] Procedure Note Solitario Paul MD - 07/26/2023 EXAM DESCRIPTION: DEXA AXIAL SKELETON BONE DENSITY 1 OR MORE SITES REASON FOR STUDY: 63 y/o year old F with given history of:Postmenopausal Seam Feller/Model: BladeLogic Discovery SL (S/N [id number]) CLINICAL INFORMATION: Current height: 64.5 inches Maximum [...] Solitario Paul M.D. MF: JOVAN Report ID: [id number] Reading Location: [id number] Akhil Russo MD IMG DXA PROCEDURES Final Re sult * High Risk HPV DNA Detection with Genotyping (Molecular component) (04/11/2023 1:41 PM HEAVY EQUIPMENT RENTAL MANAGER) HPV HR 16 Not Detected Not Detected [facility] Comment:Testing performed by : [facility], [address] [place]., [address] HPV HR 18 Not Detected Not Detected [facility] Comment:Testing performed by : [facility], [address] [place]., [address] HPV HR Non 16/18 Not Detected Not Detected [facility] Comment: Interpretive Data Nucleic acid amplification for [...] this test have been verified by the [facility] Molecular Infectious Disease laboratory. Correlate with separately reported cytology results, as applicable. Interpretive data last revised 22 Testing performed by: [facility], [address] [place]., [address] Endocervical 04/11/2023 1:41 PM HEAVY EQUIPMENT RENTAL MANAGER 04/12/2023 3:01 PM HEAVY EQUIPMENT RENTAL MANAGER Akhil Russo MD LAB BODY FLUIDS AND STOOLS ORDERABLES Final Result [facility] [address] [place] [address] * CT Colonography Diagnostic W Contrast (07/22/2021 [...] by: Stephanie Barajas M.D. Lorene Prince MD IMG CT PROCEDURES Autumn l Result * Hepatitis C antibody (01/03/2021 12:02 PM CDT) Hep C Ab Nonreactive Nonreactive [facility] Comment:Antibodies to HCV no t detected. Does NOT exclude the possibility of recent exposure to HCV. Blood 01/03/2021 12:0 2 PM CDT 01/03/2021 12:16 PM CDT Carmen Fish NP LAB MICROBIOLOGY - MARKIE AL ORDERABLES Edited Result - Final [facility] [place] [address] from Last 3 Months or Most Recently Relevant to Health Maintenance Additional Health Concerns Infection Onset Date Last Indicated C. difficile 01/15/2025 01/15/2025 Insurance MEDICARE RESEARCH [facility] MEDICARE ADVANTAGE [facility] AD[employer]ANTAGE [facility] [employer]ARE ADVANTAGE [employer] MEDICARE ADVANTAGE [employer]HC MEDICARE ADVANTAGE Advance Directives For more information, please contact: [phone] Documents on File Type Date Recorded Patient Sole Layer Expl anation ADVANCE DIRECTIVE 01/22/2025 1:11 PM POWER OF HEALTH MANAGER-MEDICAL ADVANCE DIRECTIVE 01/16/2025 10:17 AM Sha SHUKLA ER OF HEALTH MANAGER-MEDICAL * Full Code (Latest Code Status on [...] Healthcare Agent Relationshi p Communication Sha Arreguin [facility] Care Agent Care Teams Counter Roller Relationship Specialty Start Date End Date Akhil Russo MD [address] [place] [address] PCP - General Family Medicine 11/29/21 Lorene Prince MD Medical Oncologist/Hematologis t Medical Oncology 01/31/21 Mili Mcleod NP [address] [place] [address] Nurse Practitioner Cardiovascular Disease 07/18/22 Guillermina Stokes MD [address] [place] [address] Referring Physician Endocrinology Diabetes & Metabolism 08/20/23 Dagoberto Dietrich MD [address] [place] [address] Referring Physician Nephrology 02/22/25
--- OUTSIDE RECORDS SUMMARY | 2025-03-08 01:04 | XMS_ITS | Encounter Summary ---
Author Organization [facility] Address [address] [place] [address] Phone Care Team Providers Care Routing Clerk Name Role Phone Lorene Prince MD Unavailable [phone] Akhil Russo MD Primary Care Provider [phone] Mili Mcleod NP Unavailable Guillermina Stokes MD Unavailable [phone] Dagoberto Dietrich MD Unavailable [phone] Encounter Details Date Type Department Care Team (Late st Contact Info) Description 02/27/2025 Results Follow-Up [facility] Medicine Oncology [address] [facility] [address] [place] [phone] Lupis Friend NP [address] [place] [address] Lipid panel, Comprehensive metabolic panel, CBC with [...] often do you attend chur ch or congregational services? Patient unable to answer 09/04/2023 Do you belong to any clubs o r organizations such as mormonism groups, unions, fraternal or athletic groups, or [...] often do you attend chur ch or congregational services? 1 to 4 times per year 01/16/2025 Do you belong to any clubs o r organizations such as mormonism groups, unions, fraternal or athletic groups, or [...] any time in the past 12 m [facility], were you homeless or living in a jail (including now)? No 01/16/[address] 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 difficile 01/15/2025 01/15/2025 documented as of this encounter Care Teams Routing Clerk Relationship Specialty Start Date End Date Akhil Russo MD [address] [place] [address] PCP - General Family Medicine 11/29/21 Lorene Prince MD Medical Oncologist/Hematologis t Medical Oncology 01/31/21 Mili Mcleod NP [address] [place] [address] Nurse Practitioner Cardiovascular Disease 07/18/22 Guillermina Stokes MD [address] [place] [address] Referring Physician Endocrinology Diabetes & Metabolism 08/20/23 Dagoberto Dietrich MD [address] [place] [address] Referring Physician Nephrology 02/22/25 documented as of this encounter
--- OUTSIDE RECORDS SUMMARY | 2025-03-08 01:04 | XMS_ITS | Encounter Summary ---
Author Organization [facility] Address [address] [place] [address] Phone Care Team Providers Care Correctional Program Specialist Name Role Phone Lorene Prince MD Unavailable [phone] Akhil Russo MD Primary Care Provider [phone] Mili Mcleod NP Unavailable Guillermina Stokes MD Unavailable [phone] Lucy Lizarraga LPN Unavailable [phone] Dagoberto Dietrich MD Unavailable [phone] Encounter Details Date Type Department Care Team (Late st Contact Info) Description 10/10/2022 Telephone [facility] - [facility] Medicine ENT [address] [facility] Advanced Medicine 11th [place] [address] [place] [address] Goyo Salinas MD [address] [place] [address] Social History Tobacco Use Types [...] on file Legal Sex Female 8:31 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 difficile suspected 07/05/2023 07/05/2023 10:37 PM OIL PRODUCER COVID: Suspected 08/22/2023 08/22/2023 08/22/2023 5:03 PM [...] documented as of this encounter Care Teams Correctional Program Specialist Relationship Specialty Start Date End Date Akhil Russo MD [address] [place] [address] PCP - General Family Medicine 11/29/21 Lorene Prince MD Medical Oncologist/Hematologis t Medical Oncology 01/31/21 Mili Mcleod NP [address] [place] [address] Nurse Practitioner Cardiovascular Disease 07/18/22 Guillermina Stokes MD [address] [facility] [address] [place] [address] Referring Physician Endocrinology Diabetes & Metabolism 08/20/23 Lucy Lizarraga, MEN'S LOCKER ROOM ATTENDANT [address] [place] [address] [address] [place] [address] Aids Nurse 01/20/25 01/20/25 Dagoberto Dietrich MD [address] [facility] [address] [place] [address] Referring Physician Nephrology 02/22/25 documented as of this encounter
--- OUTSIDE RECORDS SUMMARY | 2025-03-08 01:04 | XMS_ITS | Encounter Summary ---
Author Organization [facility] Address [address] [place] [address] Phone Care Team Providers Care Recreation Establishment Manager Name Role Phone Lorene Prince MD Unavailable [phone] Akhil Russo MD Primary Care Provider Mili Mcleod NP Unavailable Guillermina Stokes MD Unavailable Lucy Lizarraga LPN Unavailable [phone] Dagoberto Dietrich MD Unavailable [phone] Encounter Details Date Type Department Care Team (Late st Contact Info) Description 01/15/2025 Results Follow-Up [facility] Medicine Oncology [address] [facility] [address] [place] [phone] Lupis Friend NP [address] [place] [address] CBC with auto differential, Comprehensive [...] often do you attend chur ch or lutheran services? Patient unable to answer 09/04/2023 Do you belong to any clubs o r organizations such as mandaeism groups, unions, fraternal or athletic groups, or [...] often do you attend chur ch or lutheran services? 1 to 4 times per year 01/16/2025 Do you belong to any clubs o r organizations such as mandaeism groups, unions, fraternal or athletic groups, or [...] any time in the past 12 m [facility], were you homeless or living in a snf (including now)? No 01/16/2025 [facility] Utilities Answer Date Recorded In the past 12 months has [employer] electric, gas, oil, or water [employer] threatened to shut off services in your home? No 01/16/2025 Personal Safety Answer Date Recorded Have you ever been in or are you currently in a harmful physical or emotional relationship or is someone making you feel afraid or unsafe? 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 Gender Identity Female 12/08/2020 1:45 PM CDT [...] documented as of this encounter Care Teams Recreation Establishment Manager Relationship Specialty Start Date End Date Akhil Russo MD [address] [place] [address] PCP - General Family Medicine 11/29/21 Lorene Prince MD Medical Oncologist/Hematologis t Medical Oncology 01/31/21 Mili Mcleod NP [address] [place] [address] Nurse Practitioner Cardiovascular Disease 07/18/22 Guillermina Stokes MD [address] [facility] [address] [place] [address] Referring Physician Endocrinology Diabetes & Metabolism 08/20/23 Lucy Lizarraga, BRIDGE DESIGN ENGINEER [address] [facility] [address] [place] [address] Language Asst 01/20/25 01/20/25 Dagoberto Dietrich MD [address] [facility] [address] [place] [address] Referring Physician Nephrology 02/22/25 documented as of this encounter
[2025-03-08] MEDS: METOCLOPRAMIDE HCL INJ 10 MG/2 ML VIAL IV PUSH (01:16)
[2025-03-08] MEDS: NEOMYCIN/POLYMYXIN/HYDROCORT OT SUSP 10 ML BTL (*BKC) 3 DROP LEFT EAR (01:17)
[2025-03-08 01:25] LABS: Hematocrit 44.5 % (37.0-47.0); Hemoglobin 13.4 g/dL (12.0-15.0); Immature Granulocyte Percent A 0.4 % (0-0.5); Immature Platelet Fraction Pct 5.1 % (0.9-11.2); Lymphocytes Absolute Auto 2.25 K/mm3 (0.9-3.2); Mean Corpuscular HGB Conc 30.1 g/dl (32-36); Mean Corpuscular Hemoglobin 22.8 pg (26-34); Mean Corpuscular Volume 75.7 fl (80-100); Nucleated Red Blood Cells Absolute Auto 0.000 K/mm3 (0.0-0.012); Nucleated Red Blood Cells Perc 0.0 % (0.0-0.2); Platelet Count Result 225 k/mm3 (150-375); Red Blood Count 5.88 M/mm3 (4.2-5.4); White Blood Count 8.3 K/mm3 (4.5-10.0)
--- NOTE | 2025-03-08 01:25 | ED.GENADULT ---
HPI - General Adult General Chief complaint: Unspecified Stated complaint: BP is 150/115, N/V, back pain, blown eardrum Time Seen by Provider: 03/08/25 00:46 History of Present Illness HPI narrative: 64-year-old female with history of renal cell carcinoma with metastatic disease to the lungs currently on oral chemotherapy. Patient has history of recurrent colitis and recently admitted to [facility] for C diff colitis 2 months ago as well as recently admitted here for colitis prior to that. States she has not been on any new antibiotics since that hospitalization. Today she presents with nausea and vomiting and painless diarrhea. Similar to her previous presentations but states that does not feel like colitis as she was having pain during those episodes. Endorses soft stool mixed with some liquid but no discoloration or blood. No dark tarry component. Vomitus is clear. Patient states she vomited some much today that she was trying to clear secretions and blew her nose and accidentally feels like she blew her left eardrum out. Has been having some pain and decreased hearing in her left eardrum since this morning since that happened. Was otherwise in her normal state of health. No recent medication changes. She is on everolimus and sees a cancer specialist at [facility]. States that Zofran does not usually help her and she takes Reglan for nausea and vomiting. Was not able to keep down oral intake today. Denies abdominal pain, back pain, fever, chills, chest pain or dyspnea. Related Data Home Medications ?Medication ?Instructions ?Recorded ?Confirmed ?Last Taken ?Type cetirizine 10 mg tablet 10 mg PO DAILY 02/23/20 12/20/24 12/19/24 History Daily Multi-Vitamin 1 tablet PO DAILY 05/15/21 12/20/24 12/19/24 History Inlyta 5 mg PO DAILY 05/15/21 12/20/24 12/19/24 History acetaminophen 650 mg PO Q6-8H PRN Pain 05/15/21 12/20/24 12/19/24 History levothyroxine 25 mcg tablet 25 mcg PO DAILY 05/15/21 12/20/24 12/19/24 History (Synthroid) amlodipine 5 mg tablet (Norvasc) 5 mg PO DAILY 07/12/24 12/20/24 12/19/24 History Held on 12/21/24. Instructions: Resume on 12/28/24. Until your diet fully returns lenvatinib 8 mg/day (4 mg x 2) 8 mg PO DAILY 07/12/24 12/20/24 12/19/24 History capsule (Lenvima) Allergies Allergy/AdvReac Type Severity Reaction Status Date / Time codeine Allergy Severe Hives Verified 03/07/25 23:12 Penicillins Allergy Severe Hives Verified 03/07/25 23:12 Sulfa (Sulfonamide Allergy Severe Hives Verified 03/07/25 23:12 Antibiotics) lactase (From Dairy Aid) Allergy Migraine Verified 03/07/25 23:12 [place] And Derivatives AdvReac Intermediate Migraine Verified 03/07/25 23:12 egg AdvReac Intermediate Migraine Verified 03/07/25 23:12 egg yolk AdvReac Intermediate Migraine Verified 03/07/25 23:12 fish derived AdvReac Intermediate Migraine Verified 03/07/25 23:12 milk AdvReac Intermediate Migraine Verified 03/07/25 23:12 nut - unspecified AdvReac Intermediate Migraine Verified 03/07/25 23:12 Review of Systems Review of Systems: As reviewed above in HPI [facility] Past Medical History Medical History (Reviewed 03/08/25 @ 01:36 CDT by Jose M Al MD) Metastatic renal cell carcinoma to lung Vitamin D deficiency Hypertension Allergic asthma Surgical History Surgical History (Reviewed 03/08/25 @ 01:36 CDT by Jose M Al MD) History of arthroscopic knee surgery History of cholecystectomy History of left nephrectomy (01/2019) Family History Family History (Reviewed 03/08/25 @ 01:36 CDT by Jose M Al MD) Father Family history of blood dyscrasia, Onset Age: 68 Family history of heart disease in male family member before age 55 Patient's father is Asthma Mother Family history of elevated blood lipids Family history of diabetes mellitus in first degree relative Hypertension Diabetes mellitus Sibling Asthma Diabetes mellitus Family history of sickle cell trait Multiple sclerosis Lupus Hypertension Grandparent Family history of malignant neoplasm of breast Family history of blood dyscrasia Social History Social History (Reviewed 03/08/25 @ 01:36 CDT by Jose M Al MD) Social History: Surrogate decision maker: Sha Condon, son. Code status: Full code. Smoking status: Never smoker Second hand tobacco smoke exposure: No Alcohol intake: never Substance use: never Substance use type: does not use Do You Feel Safe in your Home?: Yes Lack of Transportation: No Lack of Food: Never True Current Housing: I Have Housing Concerned About Future Housing: No Difficulty Paying Gas/Electric Bills: No Difficulty Paying for Meds: No Currently Unemployed: No Education: Associate Degree Difficulty w/ Childcare or Family Care: No Living arrangements: with family Occupation/Education: unemployed Additional occupation/education comments: On disability. Gender identity (if verbalized by the patient): Female Sexual Orientation (if Verbalized by the Patient): Straight or Heterosexual Spiritual care concerns: No Exam Narrative: GENERAL: [Well-appearing, well-nourished, and in no acute distress.] HEAD: [Normocephalic, atraumatic.] EYES: [PERRLA and EOMI.] ENT: Left tympanic membrane does have a small perforation, redness to the skin and serosanguineous discharge noted. Some macerated tissue in the external canal. No bleeding. No irregular proptosis or mastoid tenderness. No midline neck pain or stiffness. Contralateral ear without concern. NECK: Supple. CHEST: [Clear to auscultation. No respiratory distress.] HEART: [Regular rate and rhythm]. No murmur heard. [Normal peripheral pulses.] ABDOMEN: [Soft, nondistended], [nontender], [No rigidity or guarding] EXTREMITIES: Normal range of motion. [No edema.] SKIN: Warm, dry, no rash. NEURO: [No focal deficits]. Alert and oriented [x3.] PSYCH: [Normal mood and affect.] Course Vital Signs Vital signs: Vital Signs Temperature 36.6 C 03/07/25 23:13 Pulse Rate 91 03/07/25 23:13 Respiratory Rate 20 03/07/25 23:13 Blood Pressure 153/96 H 03/07/25 23:13 Pulse Oximetry 100 03/07/25 23:13 Oxygen Delivery Room Air 03/07/25 23:13 Temperature 36.7 C 03/08/25 04:25 Pulse Rate 75 03/08/25 04:25 Respiratory Rate 15 03/08/25 04:25 Blood Pressure 139/89 03/08/25 04:25 Pulse Oximetry 100 03/08/25 04:25 Oxygen Delivery Room Air 03/07/25 23:13 Medical Decision Making MDM Narrative Medical decision making narrative: 64-year-old female with history of renal cell carcinoma with metastatic disease to the lungs currently on oral chemotherapy. Patient has history of recurrent colitis and recently admitted to [facility] for C diff colitis 2 months ago as well as recently admitted here for colitis prior to that. States she has not been on any new antibiotics since that hospitalization. Today she presents with nausea and vomiting and painless diarrhea. Similar to her previous presentations but states that does not feel like colitis as she was having pain during those episodes. Endorses soft stool mixed with some liquid but no discoloration or blood. No dark tarry component. Vomitus is clear. Patient states she vomited some much today that she was trying to clear secretions and blew her nose and accidentally feels like she blew her left eardrum out. Has been having some pain and decreased hearing in her left eardrum since this morning since that happened. Was otherwise in her normal state of health. No recent medication changes. She is on everolimus and sees a cancer specialist at [facility]. States that Zofran does not usually help her and she takes Reglan for nausea and vomiting. Was not able to keep down oral intake today. Denies abdominal pain, back pain, fever, chills, chest pain or dyspnea. Left tympanic membrane does have a small perforation, redness to the skin and serosanguineous discharge noted. Some macerated tissue in the external canal. No bleeding. No irregular proptosis or mastoid tenderness. No midline neck pain or stiffness. Contralateral ear without concern. Patient also has a soft nontender nondistended abdomen which is reassuring. Vital signs show some mild hypertension but no tachycardia, fever, hypoxemia. Patient has no signs of abdominal pain or tenderness and nausea vomiting and diarrhea could be her medication induced given she is on oral chemotherapy with no other recent changes. Low suspicion recurrence of colitis or intra-abdominal infection but will obtain laboratory studies and re-evaluated. Given Reglan diphenhydramine fluids. Given otic suspension of antibiotics to treat otitis externa empirically. Laboratory studies showed no leukocytosis or anemia and appears hemoconcentrated based on previous samples likely from dehydration. Station is having volume loss and diarrhea and vomiting although she is no longer having any retching or vomiting here in the ED. laboratory studies show unremarkable electrolytes. Creatinine at baseline. Normal lipase. LFTs unremarkable. Urinalysis unremarkable. Patient provided dextrose containing fluids and LR for additional hydration. Safe for discharge with PCP follow-up and given Reglan as needed for vomiting at home and otic ear drops for her otitis. Medical Records Medical records reviewed: Yes I reviewed the external patient's medical records. Vital Signs Vital Signs: Vital Signs Temperature 36.6 C 03/07/25 23:13 Pulse Rate 91 03/07/25 23:13 Respiratory Rate 20 03/07/25 23:13 Blood Pressure 153/96 H 03/07/25 23:13 Pulse Oximetry 100 03/07/25 23:13 Oxygen Delivery Room Air 03/07/25 23:13 Temperature 36.7 C 03/08/25 04:25 Pulse Rate 75 03/08/25 04:25 Respiratory Rate 15 03/08/25 04:25 Blood Pressure 139/89 03/08/25 04:25 Pulse Oximetry 100 03/08/25 04:25 Oxygen Delivery Room Air 03/07/25 23:13 Lab Data Lab results reviewed: Yes I reviewed the patient's lab results. 03/08/25 01:08 BEEF LUGGER 03/08/25 01:08 BEEF LUGGER Labs: Lab Results 03/08/25 Range/Units 01:08 BEEF LUGGER WBC 8.3 (4.5-10.0) K/mm3 RBC 5.88 H (4.2-5.4) M/mm3 Hgb 13.4 D (12.0-15.0) g/dL Hct 44.5 (37.0-47.0) % MCV 75.7 L (80-100) fl MCH 22.8 L (26-34) pg MCHC 30.1 L (32-36) g/dl RDW 19.8 H (11.5-14.5) % Plt Count 225 D (150-375) k/mm3 MPV 10.2 (7.4-10.4) fl Immature Gran % (Auto) 0.4 (0-0.5) % Neut % (Auto) 65.8 (45.5-73.1) % Lymph % (Auto) 27.1 (18.3-44.2) % [place] % (Auto) 6.4 (2.6-8.5) % Eos % (Auto) 0.2 (0-4.4) % Baso % (Auto) 0.1 L (0.2-1.2) % Lymph # (Auto) 2.25 (0.9-3.2) K/mm3 Jess[place] # (Auto) 0.5 (0.1-0.6) K/mm3 Eos # (Auto) 0.0 (0-0.3) K/mm3 Baso # (Auto) 0.0 (0.0-0.1) K/mm3 Abs Immat Gran (auto) 0.03 (0.00-0.031) K/mm3 Absolute Neuts (auto) 5.5 (1.3-6.7) K/mm3 Absolute Nucleated RBC 0.000 (0.0-0.012) K/mm3 Nucleated RBC % 0.0 (0.0-0.2) % % Immature Plt Fraction 5.1 (0.9-11.2) % Sodium 138 (137-145) mmol/L Potassium 4.1 (3.4-5.0) mmol/L Chloride 104 (98-107) mmol/L Carbon Dioxide 19 L (22-30) mmol/L Anion Gap 15 H (4-12) mmol/L BUN 14 D (7-17) mg/dL Creatinine 1.02 H (0.7-1.0) mg/dL Estim Creat Clear Calc Not Reportable Estimated GFR 54 L (59 - ) Glucose 91 (65-110) mg/dL Calcium 9.6 (8.4-10.2) mg/dL Total Bilirubin 1.3 (0.2-1.3) mg/dL AST 53 H (14-36) U/L ALT 30 (6-35) U/L Alkaline Phosphatase 93 (38-126) U/L Total Protein 8.7 H (6.3-8.2) g/dL Albumin 4.7 (3.5-5.1) g/dL Lipase 89 (23-300) U/L Urine Color Yellow (Yellow) Urine Appearance Clear (Clear) Urine pH 5.5 (5.0-9.0) Ur Specific [place] 1.031 (1.001-1.035) Urine Protein 2+ H (Negative) mg/dL Urine Glucose (UA) Negative (Negative) mg/dL Urine Ketones 4+ H (Negative) mg/dL Ur Blood (Man) Negative (Negative) Urine Nitrate Negative (Negative) Urine Bilirubin Negative (Negative) Urine Urobilinogen 1.0 (<2.0) mg/dL Add Ur Microanalysis Reviewed Leukocyte Esterase Rfl Negative (Negative) ASCENCION/UL Urine RBC 6-10 H (0-2) /hpf Urine WBC 0-5 (0-3) /hpf Ur Squamous Epith Cells Occasional (Few) /hpf Calcium Oxalate Crystal Present (None) /hpf Urine Bacteria None seen /hpf Urine Casts 3-5 Urine Mucus Present /lpf Discharge Plan Discharge Clinical Impression: Nausea & vomiting, Chronic diarrhea, Otitis externa Patient Disposition: Home Condition: Stable Instructions: Antibiotic Form, Swimmer's Ear (AC), Ear Infection (AC), Chronic Diarrhea (DC), Fluid In The Ear (Serous Otitis Media) (ED) Additional Instructions: Laboratory studies show some dehydration otherwise largely unremarkable. Will treat your your infection with combination ear drops with steroids and antibiotics and prescribe you some high strength nausea medicines to take. Take some antidiarrheals or [id number] or at home for some continued symptom relief and follow-up with your primary doctor next week. Return with any worsening emergent concerns or difficulty tolerating oral intake, dehydration, fevers or any issues. Patient Language: Telugu Prescriptions: New Cipro HC 0.2-1 % drops,suspension 3 drp LEFT EAR Q12H 7 Days Qty: 10 0RF metoclopramide HCl [Reglan] 5 mg tablet 5 mg PO Q8H PRN (Reason: nausea and vomiting) Qty: 10 0RF No Action sertraline 25 mg tablet 25 mg PO BID Qty: 180 1RF cyclobenzaprine 7.5 mg tablet 7.5 mg PO TID PRN (Reason: muscle spasm) Qty: 90 0RF levothyroxine [Synthroid] 25 mcg tablet 25 mcg PO DAILY Patient Comments: 88MCG DAILY Daily Multi-Vitamin 1 tablet PO DAILY Inlyta 5 mg PO DAILY Patient Comments: Cancer medication, patient takes 5 days a week, not on weekends. acetaminophen 650 mg PO Q6-8H PRN (Reason: Pain) Lenvima 8 mg/day (4 mg x 2) capsule 8 mg PO DAILY Rx Instructions: TAKES [id number] amlodipine [Norvasc] 5 mg tablet 5 mg PO DAILY metronidazole 500 mg tablet 500 mg PO Q8H Qty: 15 0RF levofloxacin 750 mg tablet 750 mg PO .Q48 Qty: 5 0RF cetirizine 10 mg Tablet 10 mg PO DAILY Patient Comments: Alternates monthly with haile. Currently taking zyrtec for the month of December. metoclopramide HCl [Reglan] 10 mg tablet 10 mg PO Q6H PRN (Reason: nausea and vomiting) Qty: 30 0RF diphenoxylate-atropine [Lomotil] 2.5-0.025 mg tablet 1 tablet PO TID PRN (Reason: diarrhea) Qty: 30 0RF tramadol 50 mg tablet 50 mg PO Q6H PRN (Reason: pain) Qty: 30 0RF Follow-up/Referrals: Rafaela,Akhil Rockwell MD [Primary Care Provider, Unknown] Steven Mora MD [Physician, Ear, Nose, Throat] - 3 Days Referral Note: Otitis externa Time of Disposition: 03:37
[2025-03-08 01:36] LABS: Add Urine Microscopic? YES; Appearance Urine Clear (Clear); Glucose Urine UA Negative (Negative); Leukocyte Esterase Ur Negative LEU/UL (Negative); Need Manual Microscopic Reviewed; Nitrate Urine Negative (Negative); Specific Grav Ur 1.031 (1.001-1.035)
[2025-03-08 01:54] LABS: Alanine Aminotransferase 30 U/L (6-35); Albumin Level 4.7 g/dL (3.5-5.1); Alkaline Phosphatase 93 U/L (38-126); Anion Gap 15 mmol/L (4-12); Aspartate Amino Transferase 53 U/L (14-36); Bilirubin,Total 1.3 mg/dL (0.2-1.3); Blood Urea Nitrogen 14 mg/dL (7-17); Calcium 9.6 mg/dL (8.4-10.2); Carbon Dioxide 19 mmol/L (22-30); Chloride 104 mmol/L (98-107); Estimated Glomerular Filt Rate 54; Glucose 91 mg/dL (65-110); Lipase 89 U/L (23-300); Potassium 4.1 mmol/L (3.4-5.0); Sodium 138 mmol/L (137-145); Total Protein 8.7 g/dL (6.3-8.2)
[2025-03-08] MEDS: LACTATED RINGERS 1,000 ML 999 ML IV CONT (02:31)
[2025-03-08] MEDS: DEXTROSE 5%/LACTATED RINGERS 1,000 ML 1000 ML IV CONT (02:32)
== END 2025-03-08 04:26 | disposition home or self-care (01) ==
PROVIDERS: Emergency Provider Student in an Organized Health Care Education/Training Program; PCP Family Medicine
DX: R11.2 Nausea with vomiting, unspecified (principal); R19.7 Diarrhea, unspecified; H60.90 Unspecified otitis externa, unspecified ear; C64.9 Malignant neoplasm of unspecified kidney, except renal pelvis; C78.00 Secondary malignant neoplasm of unspecified lung; Z79.899 Other long term (current) drug therapy
CPT/HCPCS: 36415; 80053; 81001; 83690; 85025; 85055; 96361; 96374; 96375; 99284; A9270; J7120; J7121